=== PATIENT | female | born 1945 | race Caucasian/White ===

== ENCOUNTER → 2016-03-13 | Outpatient (CLI) | payer MEDICARE ==
[~2016-03-13] MED LIST: ACDPT PO; ACET-2469 PO; ACET325T49 PO; ASP81CT PO; ASPI-808 PO; ATOR10TA PO; BISA10SU12 PR; CAFERGOT; CALC-225 PO; CALC-694 PO; CALC-80 PO; CALCIUM; CEFD300C3 PO; CHLO25TA22 PO; DOCU100C37 PO; FISH OIL 1,2001 EAC1 PO; HYDR-3583 PO; HYDR-3820 PO; HYDR-753 PO; IMITREX; IRON150C3 PO; L.AC1CAP6 PO; LIPITOR; LISI-552 PO; LISI40TA PO; METO-272 PO; METO25TA PO; METOPROLOL ER PO; MULT-608 PO; OMEG-109 PO; OMEG-9 PO; OMEG1CAP24 PO; OMEG1CAP51 PO; OMG1KC; POTA10CA43 PO; POTA10TA10 PO; PROM25TA14 PO; SIMV20TA3 PO; SMTR50T; SOLI5TAB4 PO; TOLTA4; TRAM50TA2 PO; TROS20TA2 PO; TYLENOL PM
--- OUTSIDE RECORDS SUMMARY | 2016-03-13 09:29 | XMS REPORT | Continuity of Care Document ---
Author Author [facility] Organization [facility] Address Unknown Phone Unavailable Care Team Providers Care Head Of Sales Name Role Phone Pricila Harris PCP [phone] Source Comments Some departments are not documenting in the electronic medical record. If you do not see the information that you expected, contact Release of Information in the Health Information Management department at [phone] for further assistance in locating additional records.[facility] Active Allergies and Adverse Reactions No Known Allergies Current Medications Prescription Sig. Disp. Refills Start End Date Status Date metoprolol (LOPRESSOR) 50 Take 75 mg by mouth twice Active mg tablet daily. lisinopril (PRINIVIL, Take 40 mg by mouth Active ZESTRIL) 40 mg tablet daily. simvastatin (ZOCOR) 20 mg Take 20 mg by mouth at Active tablet bedtime daily. aspirin EC 81 mg tablet Take 81 mg by mouth Active daily. CALCIUM CARBONATE/VITAMIN Take by mouth. Active D3 (CALCIUM 600 + D PO) DOCOSAHEXANOIC ACID/EPA Take 2,400 mg by mouth Active (FISH OIL PO) twice daily. MULTIVITS,CA,MINERALS/IRO Take by mouth. Active N/FA (ONE-A-DAY WOMENS FORMULA PO) Diphenhydramine-Acetamino Take by mouth at bedtime Active phen (TYLENOL PM EXTRA daily. STRENGTH) 25-500 mg tab tablet Active Problems Problem Noted Date Hypertension Last Assessment & Plan: BP is well controlled. 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 Pulse 91 02/15/2015 9:12 AM MAILING MACHINE ASSISTANT Temperature 36.4 C (97.5 F) 02/15/2015 9:12 AM MAILING MACHINE ASSISTANT Respiratory Rate 20 02/15/2015 9:12 AM MAILING MACHINE ASSISTANT Height 1.575 m (5' 2") 02/15/2015 9:12 AM MAILING MACHINE ASSISTANT Weight 84.278 kg (185 lb 12.8 02/15/2015 9:12 AM MAILING MACHINE ASSISTANT oz) Body Mass Index 33.97 02/15/2015 9:12 AM MAILING MACHINE ASSISTANT Oxygen Saturation - - Plan of Care Health Maintenance Due Date Last Done Comments Hepatitis C Screening 1945 Physical (Comprehensive) 1952 Exam Prevnar/Pneumovax (#1) 2010 Tetanus Vaccine 01/08/2015 01/08/2005 (Previously completed) Influenza Vaccine 10/18/2015 11/28/2014 Breast Cancer Screening 10/10/2016 10/10/2014 (Previously completed) Colorectal Cancer 12/18/2024 12/18/2014 (Previously completed) Screening Pertussis Vaccine Addressed 01/08/2005 (Previously completed) Overridden with the intention of not completing the topic Osteoporosis Screening Completed 11/25/2012 Shingles Vaccine Addressed 11/28/2014 (Previously completed) Overridden with the intention of not completing the topic Results from Last 3 Months Not on file
--- NOTE | 2016-03-13 11:40 | Diagnostic Imaging Report ---
Left humerus. INDICATION: Pain. FINDINGS: Two views were obtained. There is no fracture, dislocation, or acute bony abnormality evident. The shoulder and elbow joints appear to be fairly well maintained given the patient's age. The soft tissues are unremarkable. IMPRESSION: There is no evidence for an acute bony abnormality. Dictated by: Dictated on workstation # [id number]
--- NOTE | 2016-03-13 11:44 | Diagnostic Imaging Report ---
Left shoulder. INDICATION: Shoulder pain. FINDINGS: Two views were obtained. There is no fracture, dislocation, or acute bony abnormality evident. There is moderate degenerative disease involving the glenohumeral joint and the acromioclavicular joint. The soft tissues are unremarkable for an acute abnormality. As noted on the chest exam of 03/31/2015, there are surgical clips in the left supraclavicular region. IMPRESSION: There is no evidence for an acute bony abnormality. Dictated by: Dictated on workstation # [id number]
== END ==
LOC: RAD 09:25
PROVIDERS: ATTEND Nurse Practitioner Family
DX: M25.512 Pain in left shoulder (principal); M79.622 Pain in left upper arm
CPT/HCPCS: 73030; 73060

== ENCOUNTER → 2016-03-21 | Outpatient (CLI) | payer MEDICARE ==
--- OUTSIDE RECORDS SUMMARY | 2016-03-21 11:46 | XMS REPORT | Continuity of Care Document ---
Author Author [facility] Organization [facility] Address Unknown Phone Unavailable Care Team Providers Care Vegetable Tier Name Role Phone Pricila Harris PCP [phone] Source Comments Some departments are not documenting in the electronic medical record. 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
--- NOTE | 2016-03-21 12:53 | Diagnostic Imaging Report ---
PROCEDURE: MRI left upper extremity without contrast. TECHNIQUE: Multiplanar, multisequence non contrast-enhanced MRI of the left upper extremity was accomplished. INDICATION: Arm pain. There are no previous MRI examinations available for comparison. The plain film examination of the left shoulder performed on 03/13/16 failed to show any sign of an acute abnormality. On the T2 fat-saturated coronal series of this exam, there is a small area of abnormal signal along the anteriormost insertion of the rotator cuff. This area measures 3.5 x 6.1 x 5.4 mm in maximum longitudinal transverse and AP dimensions. Most likely, this represents a small rim rent tear of the rotator cuff. The supraspinatus muscle in this area is slightly bunched but the supraspinatus muscle is not retracted. The acromioclavicular joint is mildly hypertrophied and this does result in slight narrowing of the outlet for the supraspinatus muscle. There is also a trace amount of fluid in the subacromial bursa indicating there is mild inflammation of the muscle in this area. The labrum is thinned centrally and most likely torn on a degenerative basis. The biceps tendon and the subscapularis tendon are intact. There is no abnormal signal arising from the osseous structures to suggest bone edema or a fracture. There is only a small amount of fluid within the glenohumeral joint. IMPRESSION: 1. There is a small rim-rent tear of the anteriormost insertion of the rotator cuff. The supraspinatus muscle in this area is slightly bunched but not retracted. 2. There is hypertrophy of the acromioclavicular joint and this does result in slight narrowing of the outlet for the supraspinatus muscle. 3. The labrum is thinned centrally and most likely torn on a degenerative basis. 4. There is no evidence for an acute bony abnormality. Dictated by: Dictated on workstation # [id number]
== END ==
LOC: RAD 11:43
PROVIDERS: ATTEND Family Medicine
DX: M25.512 Pain in left shoulder (principal)
CPT/HCPCS: 73221

== ENCOUNTER 2016-04-28 08:56 | Outpatient (RCR) | payer MEDICARE ==
--- OUTSIDE RECORDS SUMMARY | 2016-04-17 08:30 | XMS REPORT | Continuity of Care Document ---
Author Author [facility] Organization [facility] Address Unknown Phone Unavailable Care Team Providers Care Tube Pusher Name Role Phone Pricila Harris PCP [phone] Source Comments Some departments are not documenting in the electronic medical record. 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
== END 2016-04-28 10:39 | disposition home or self-care (01) ==
PROVIDERS: ATTEND Orthopaedic Surgery
DX: M75.102 Unspecified rotator cuff tear or rupture of left shoulder, not specified as traumatic (principal)

== ENCOUNTER → 2016-11-13 | Outpatient (CLI) | payer MEDICARE ==
[~2016-11-13] MED LIST changes: +FAMO40TA72 PO; +MAGN400C PO; -METO-272 PO; +METO-370 PO; +ONDA4TAB8 PO; +SULF1TAB35 PO
--- NOTE | 2016-11-13 17:40 | Diagnostic Imaging Report ---
EXAMINATION: Bilateral diagnostic mammogram. The current study was also evaluated with a Computer Aided Detection (CAD) system. INDICATION: Pain in the right axilla. COMPARISON: 10/23/2015. FINDINGS: The breasts are composed of scattered fibroglandular densities. No mass, architectural distortion or suspicious calcification is seen. Surgical clips in the right axilla are noted. IMPRESSION: No mammographic evidence of malignancy. Ultrasound evaluation of the area of pain is pending. ACR BI-RADS Category 0: Incomplete. (Needs additional imaging evaluation). Result letter will be mailed to the patient. Note: At least 10% of breast cancer is not imaged by mammography. Dictated by: Dictated on workstation # [id number]
--- NOTE | 2016-11-13 17:43 | Diagnostic Imaging Report ---
EXAMINATION: Ultrasound of the right axilla. INDICATION: Tenderness and lump felt in the right axilla. FINDINGS: The right axillary scan shows no underlying abnormality seen. IMPRESSION: Negative study. Clinical followup of the palpable area recommended. BI-RADS 1. Dictated by: Dictated on workstation # [id number]
== END ==
LOC: RAD 08:01
PROVIDERS: ATTEND Family Medicine
DX: N63 Unspecified lump in breast (principal)
CPT/HCPCS: 77066

== ENCOUNTER 2017-01-05 00:15 | Emergency (ER) | payer MEDICARE ==
[~2017-01-05] VITALS: Ht 160 cm; Wt 85.7 kg
[~2017-01-05 00:15] MED LIST changes: -FAMO40TA72 PO; -MAGN400C PO; -ONDA4TAB8 PO; -SULF1TAB35 PO
--- OUTSIDE RECORDS SUMMARY | 2017-01-05 00:20 | XMS REPORT | Clinical Summary ---
Author Author [facility] Organization [facility] Address Unknown Phone Unavailable Care Team Providers Care Administration Professional Name Role Phone PCP Unavailable Source Comments Some departments are not documenting in the electronic medical record. If you do not see the information that you expected, contact Release of Information in the Health Information Management department at [phone] for further assistance in locating additional records.[facility] Allergies No Known Allergies Current Medications Prescription Sig. [...] Flu Vaccine >64yo 11/28/2014 High-dose (Preservative Free) Family History Medical History Relation Name Comments Hypertension Brother Hypertension Father Hypertension Mother Hypertension Sister Cancer-Colon Cousin Relation Name Status Comments Brother Father Mother Sister Cousin Social History Tobacco Use Types Packs/Day Years Used Date Never Smoker Smokeless Tobacco: Never Used Tobacco Cessation: Counseling Given: No Alcohol Use Drinks/Week oz/Week Comments No 0 Standard 0.0 drinks or equivalent Sex Assigned at Date Recorded Not on file Last Filed Vital Signs Vital Sign Reading Time Taken Blood Pressure 138/84 02/15/2015 9:12 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 Pulse 91 02/15/2015 9:12 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 Temperature 36.4 C (97.5 F) 02/15/2015 9:12 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 Respiratory Rate 20 02/15/2015 9:12 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 Oxygen Saturation - - Inhaled Oxygen - - Concentration Weight 84.3 kg (185 lb 12.8 oz) 02/15/2015 9:12 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 Height 157.5 cm (5' 2") 02/15/2015 9:12 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 Body Mass Index 33.98 02/15/2015 9:12 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 Plan of Treatment Health Maintenance Due Date Last Done Comments HEPATITIS C SCREENING 1945 PHYSICAL (COMPREHENSIVE) 1952 EXAM PREVNAR/PNEUMOVAX (#1) 2010 TETANUS VACCINE 01/08/2015 01/08/2005 (Previously completed) BREAST CANCER SCREENING 10/11/2015 10/10/2014 (Previously completed) INFLUENZA VACCINE 09/16/2016 11/28/2014 COLORECTAL CANCER 12/18/2024 12/18/2014 (Previously completed) SCREENING PERTUSSIS VACCINE Addressed 01/08/2005 (Previously completed) Overridden with the intention of not completing the topic OSTEOPOROSIS SCREENING Completed 11/25/2012 SHINGLES VACCINE Addressed 11/28/2014 (Previously completed) Overridden with the intention of not completing the topic Results Not on filefrom Last 3 Months
[2017-01-05] MEDS ORDERED: LACTATED RINGERS 1,000 ML IV ONE ×2 (00:31→01:20)
[2017-01-05] MEDS ORDERED: FAMOTIDINE 20MG/2ML IV (PEPCID) IV STA (00:31)
--- NOTE | 2017-01-05 00:36 | ED GI ---
General Chief Complaint: Abdominal/GI Problems Stated Complaint: N/V/D Nursing Triage Note: c/o n/v/d Sepsis Screen: No Definite Risk Source of Information: Patient History of Present Illness Time Seen By Provider: 00:20 Initial Comments PT C/O NAUSEA/VOMITING/DIARRHEA X 2 HOURS VOMITED X 2 DIARRHEA LESS THAN 5 EPISODES NO ABDOMINAL PAIN NO FEVER, BUT HAS CHILLS SLIGHT LIGHTHEADEDNESS NO KNOWN SICK CONTACTS OR SUSPICIOUS FOODS. ATE AT [facility] AROUND 1600-- DARK MEAT, BAKED BEANS. HAD WHITE MEAT AND NO BAKED BEANS AND HE IS NOT ILL. PCP: DR. LUNA Allergies and Home Medications Allergies Coded Allergies: Anesthetics - Amide Type (Verified Adverse Reaction, Unknown, vomiting, ) Home Medications Aspirin 325 Mg Tablet, 325 MG PO BID, (Reported) Calcium Carbonate/Vitamin D3 1 Each Tablet, 1 TAB PO DAILY, (Reported) Chlorthalidone 25 Mg Tablet, 25 MG PO DAILY, (Reported) Famotidine 40 Mg Tablet, 40 MG PO DAILY, #10 Prescribed by: JIA GAMBINO on 01/05/17 0128 Hydrocodone/Acetaminophen 1 Each Tablet, 1 EA PO Q4H PRN for MODERATE PAIN, #90 Prescribed by: SHIREEN VAUGHAN on 12/06/15 0703 Lisinopril 40 Mg Tablet, 20 MG PO BID, (Reported) TAKES 1/2 (40MG) TABLET Metoprolol Succinate 50 Mg Tab.er.24h, 50 MG PO BID, (Reported) Multivitamins 1 Tab Tablet, 1 TAB PO DAILY, (Reported) [place]-3/Dha/Epa/Fish Oil 1 Each Capsule.dr, 2,800 MG PO HS, (Reported) TAKES 2 (1400MG) CAPSULES Ondansetron 4 Mg Tab.rapdis, 4 MG PO Q4H, #10 Prescribed by: JIA GAMBINO on 01/05/17 0128 Potassium Chloride 10 Meq Capsule.er, 10 MEQ PO MoWeFr, (Reported) Simvastatin 20 Mg Tablet, 20 MG PO HS, (Reported) Sulfamethoxazole/Trimethoprim 1 Each Tablet, 1 EACH PO BID, #20 Prescribed by: JIA GAMBINO on 01/05/17 0207 Review of Systems Constitutional: see HPI, chills Respiratory: No Symptoms Reported Cardiovascular: No Symptoms Reported Gastrointestinal: See HPI, Denies Abdominal Pain, Diarrhea, Nausea, Vomiting Genitourinary: No Symptoms Reported Musculoskeletal: no symptoms reported Skin: no symptoms reported Psychiatric/Neurological: No Symptoms Reported Endocrine: No Symptoms Reported Hematologic/Lymphatic: No Symptoms Reported Past Zzjbipj-Fdvcxv-Zjcixp Hx Patient Social History Alcohol Use: Denies Use Recreational Drug Use: No Smoking Status: Never a Smoker 2nd Hand Smoke Exposure: No Recent Foreign Travel: No Contact w/Someone Who Travel: No Recent Infectious Disease Expo: No Recent Hopitalizations: No Physical Abuse: No Sexual Abuse: No Immunizations Up To Date Tetanus Booster (TDap): More than 5yrs Date of Pneumonia Vaccine: Mar 31, 2015 Date of Influenza Vaccine: Nov 13, 2015 Seasonal Allergies Seasonal Allergies: No Surgeries History of Surgeries: Yes (RIGHT AXILLARY LYMPH NODE BIOPSY/REMOVAL; HYST/BSO; UTERINE/VESICLE PROLAPSE REPAIR; BILATERAL KNEE REPLACEMENTS; EGD/COLONOSCOPY) Surgeries: Gallbladder, Joint Replacement, Orthopedic, Thyroidectomy Respiratory History of Respiratory Disorde: Yes (USES CPAP; PNEUMONIA/SEVERE HYPOXIA/ RESPIRATORY FAILURE POST-OP KNEE REPLACEMENT SURGERY) Respiratory Disorders: Sleep Apnea Currently Using CPAP: Yes Cardiovascular History of Cardiac Disorders: Yes Cardiac Disorders: High Cholesterol, Hypertension, Irregular Heartbeat Neurological History of Neurological Disord: Yes Neurological Disorders: Headaches /Migraines Reproductive System Hx Reproductive Disorders: No Sexually Transmitted Disease: No HIV/AIDS: No Female Reproductive Disorders: 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 History: Menopausal Genitourinary History of Genitourinary Disor: No Gastrointestinal History of Gastrointestinal Di: Yes Gastrointestinal Disorders: Gastroesophageal Reflux Musculoskeletal History of Musculoskeletal Dis: Yes (BILATERAL KNEE REPLACEMENTS) Musculoskeletal Disorders: Arthritis Endocrine History of Endocrine Disorders: Yes (THYROIDECTOMY) HEENT History of HEENT Disorders: Yes HEENT Disorders: Cataract Cancer History of Cancer: No Psychosocial History of Psychiatric Problem: No Suicide Risk Score: 0 Integumentary History of Skin or Integumenta: No Blood Transfusions History of Blood Disorders: No Family Medical History Family Medial History: Abdominal aortic aneurysm 19 FATHER Alcoholism 19 MOTHER Arthritis 19 FATHER Cardiovascular disease 19 FATHER Dementia 19 FATHER Hypertension 19 FATHER 19 MOTHER G8 BROTHER G8 SISTER Thyroid disease G8 SISTER Physical Exam Vital Signs VS - Last 72 Hours, by Label 01/05/17 01/05/17 00:22 02:13 Temp 98.1 98.1 Pulse 104 104 Resp 18 18 B/P (MAP) 133/77 Pulse Ox 100 100 Capillary Refill : Less Than 3 Seconds General Appearance: WD/WN, no apparent distress HEENT: PERRL/EOMI, other (ORAL MUCOSA SLIGHTLY DRY) Neck: normal inspection Respiratory: normal breath sounds, no respiratory distress, no accessory muscle use Cardiovascular: no murmur, tachycardia (MILD--100-110) Gastrointestinal: normal bowel sounds, non tender, soft, no organomegaly, no pulsatile mass Extremities: normal inspection, no pedal edema, no calf tenderness, normal capillary refill Back: normal inspection, no CVA tenderness Neurologic/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: 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 as tested, no motor/sensory deficits, alert, normal mood/affect, oriented x 3 Skin: normal color, warm/dry, No rash Progress/Results/Core Measures Results/Orders Lab Results Laboratory Tests Test 01/05/17 00:30 01/05/17 01:40 Range/Units White Blood Count 10.8 4.3-11.0 10^3/uL Red Blood Count 4.33 L 4.35-5.85 10^6/uL Hemoglobin 12.9 11.5-16.0 G/DL Hematocrit 38 35-52 % Mean Corpuscular Volume 87 80-99 FL Mean Corpuscular Hemoglobin 30 25-34 PG Mean Corpuscular Hemoglobin Concent 34 32-36 G/DL Red Cell Distribution Width 13.0 10.0-14.5 % Platelet Count 214 130-400 10^3/uL Mean Platelet Volume 11.0 H 7.4-10.4 FL Neutrophils (%) (Auto) 91 H 42-75 % Lymphocytes (%) (Auto) 5 L 12-44 % Monocytes (%) (Auto) 4 0-12 % Eosinophils (%) (Auto) 1 0-10 % Basophils (%) (Auto) 0 0-10 % Neutrophils # (Auto) 9.8 H 1.8-7.8 X 10^3 Lymphocytes # (Auto) 0.6 L 1.0-4.0 X 10^3 Monocytes # (Auto) 0.4 0.0-1.0 X 10^3 Eosinophils # (Auto) 0.1 0.0-0.3 10^3/uL Basophils # (Auto) 0.0 0.0-0.1 10^3/uL Sodium Level 140 135-145 MMOL/L Potassium Level 3.8 3.6-5.0 MMOL/L Chloride Level 102 98-107 MMOL/L Carbon Dioxide Level 24 21-32 MMOL/L Anion Gap 14 5-14 MMOL/L Blood Urea Nitrogen 23 H 7-18 MG/DL Creatinine 1.15 0.60-1.30 MG/DL Estimat Glomerular Filtration Rate 47 BUN/Creatinine Ratio 20 Glucose Level 140 H 70-105 MG/DL Calcium Level 9.7 8.5-10.1 MG/DL Magnesium Level 1.8 1.8-2.4 MG/DL Total Bilirubin 0.6 0.1-1.0 MG/DL Aspartate Amino Transf (AST/SGOT) 19 5-34 U/L Alanine Aminotransferase (ALT/SGPT) 23 0-55 U/L Alkaline Phosphatase 51 40-136 U/L Total Protein 7.4 6.4-8.2 GM/DL Albumin 4.3 3.2-4.5 GM/DL Amylase Level 63 25-125 U/L Lipase 32 8-78 U/L Urine Color YELLOW Urine Clarity SLIGHTLY CLOUDY Urine pH 7 5-9 Urine Specific [place] 1.010 L 1.016-1.022 Urine Protein 1+ H NEGATIVE Urine Glucose (UA) NEGATIVE NEGATIVE Urine Ketones 1+ H NEGATIVE Urine Nitrite NEGATIVE NEGATIVE Urine Bilirubin NEGATIVE NEGATIVE Urine Urobilinogen NORMAL NORMAL MG/DL Urine Leukocyte Esterase 3+ H NEGATIVE Urine RBC (Auto) 1+ H NEGATIVE Urine RBC 2-5 H /HPF Urine WBC 10-25 H /HPF Urine Squamous Epithelial Cells 2-5 /HPF Urine Crystals NONE /LPF Urine Bacteria FEW H /HPF Urine Casts NONE /LPF Urine Mucus SMALL H /LPF Urine Culture Indicated YES My Orders Orders - JIA GAMBINO DO Saline Lock/Iv-Start (01/05/17 00:31) Amylase (01/05/17:) Cbc With Automated Diff (01/05/17:) Comprehensive Metabolic Panel (01/05/17:) Lipase (01/05/17:) Magnesium (01/05/17:) Ua Culture If Indicated (01/05/17:) Ondansetron Injection (Zofran Injectio (01/05/17 00:45) Famotidine Injection (Pepcid Injection) (01/05/17:31) Saline Lock/Iv-Start (11/20/17 00:31) Lactated Ringers (Lr 1000 Ml Iv Solution (01/05/17 00:31) Saline Lock/Iv-Start (01/05/17 01:20) Lactated Ringers (Lr 1000 Ml Iv Solution (01/05/17 01:20) Urine Culture (01/05/17 01:40) Rx-Ondansetron Po (Rx-Zofran Po) (01/05/17 01:58) Rx-Ondansetron Po (Rx-Zofran Po) (01/05/17 02:01) Medications Given in ED Current Medications Medications Dose Ordered Sig/Abdirizak Route Start Time Stop Time Status Last Admin Dose Admin Lactated Ringer's 1,000 ml @ 0 mls/hr Q0M ONCE IV 01/05/17 00:31 01/05/17 00:34 DC 01/05/17 00:40 0 MLS/HR Lactated Ringer's 1,000 ml @ 0 mls/hr Q0M ONCE IV 01/05/17 01:20 01/05/17 01:25 DC 01/05/17 01:25 0 MLS/HR Ondansetron HCl 8 mg ONCE ONCE IVP 01/05/17 00:45 01/05/17 00:46 DC 01/05/17 00:40 8 MG Vital Signs/I&O Vital Sign - Last 12Hours 01/05/17 01/05/17 00:22 02:13 Temp 98.1 98.1 Pulse 104 104 Resp 18 18 B/P (MAP) 133/77 Pulse Ox 100 100 Blood Pressure Mean: 95 Progress Note : Progress Note FEELS MUCH BETTER AFTER FLUIDS AND MEDICATIONS--STATES SHE "FEELS JUST FINE" NOW NO VOMITING OR DIARRHEA DURING ER STAY PT TOLERATING WATER AND ICE CHIPS PRIOR TO DISMISSAL Departure Impression Impression: Primary Impression: Gastroenteritis Additional Impression: Urinary tract infection Disposition: HOME, SELF-CARE Condition: Improved Departure-Patient Inst. Referrals: MADHAVI LUNA MD (PCP) Primary Care Physician Patient Instructions: Viral Gastroenteritis, Adult (DC), Urinary Tract Infection, Adult (DC) Add. Discharge Instructions: CLEAR LIQUIDS, SIPS AT A TIME--WATER, BROTH, JELLO, GATORADE ADD BRATS DIET TO CLEAR LIQUIDS--BANANAS, RICE, APPLESAUCE, TOAST, SALTINES FOLLOW UP WITH YOUR DR IN 1-2 DAYS IF NO BETTER RETURN TO ER IF WORSE All discharge instructions reviewed with patient and/or family. Voiced understanding. Scripts Sulfamethoxazole/Trimethoprim (Bactrim Ds Tablet) 1 Each Tablet 1 EACH PO BID, #20 TAB Prov: JIA GAMBINO DO 01/05/17 Famotidine (Pepcid) 40 Mg Tablet 40 MG PO DAILY, #10 TAB Prov: JIA GAMBINO DO 01/05/17 Ondansetron (Zofran Odt) 4 Mg Tab.rapdis 4 MG PO Q4H for Nausea/Vomiting, #10 TAB Prov: JIA GAMBINO DO 01/05/17 JIA GAMBINO DO Jan 05, 2017 00:36
[2017-01-05 00:37] LABS: BASOPHILS % (AUTO) 0 % (0-10); EOSINOPHILS # (AUTO) 0.1 10^3/uL (0.0-0.3); EOSINOPHILS % (AUTO) 1 % (0-10); LYMPHOCYTES # (AUTO) 0.6 X 10^3 (1.0-4.0); LYMPHOCYTES % (AUTO) 5 % (12-44); MEAN CORPUSCULAR HEMOGLOBIN 30 PG (25-34); MEAN CORPUSCULAR HGB CONC 34 G/DL (32-36); MEAN CORPUSCULAR VOLUME 87 FL (80-99); MONOCYTES # (AUTO) 0.4 X 10^3 (0.0-1.0); MONOCYTES % (AUTO) 4 % (0-12); NEUTROPHILS # (AUTO) 9.8 X 10^3 (1.8-7.8); NEUTROPHILS % (AUTO) 91 % (42-75); PLATELET COUNT 214 10^3/uL (130-400); RED BLOOD COUNT 4.33 10^6/uL (4.35-5.85); WHITE BLOOD COUNT 10.8 10^3/uL (4.3-11.0)
[2017-01-05] MEDS ORDERED: ONDANSETRON 4 MG/2 ML (SDV) Z0FRAN IVP ONE (00:45)
[2017-01-05 00:59] LABS: ALBUMIN 4.3 GM/DL (3.2-4.5); BILIRUBIN,TOTAL 0.6 MG/DL (0.1-1.0); CALCIUM 9.7 MG/DL (8.5-10.1); CREATININE SERUM 1.15 MG/DL (0.60-1.30); MAGNESIUM 1.8 MG/DL (1.8-2.4); POTASSIUM 3.8 MMOL/L (3.6-5.0); TOTAL PROTEIN 7.4 GM/DL (6.4-8.2)
[2017-01-05] MEDS ORDERED: FAMO40TA72 PO (01:28)
[2017-01-05] MEDS ORDERED: ONDA4TAB8 PO (01:28)
[2017-01-05 01:49] LABS: BILIRUBIN,URINE NEGATIVE (NEGATIVE); KETONES,URINE 1+ (NEGATIVE); LEUKOCYTE ESTERASE ,URINE 3+ (NEGATIVE); NITRITE,URINE NEGATIVE (NEGATIVE); PH,URINE 7 (5-9); PROTEIN,URINE 1+ (NEGATIVE); UROBILINOGEN,URINE NORMAL (NORMAL)
[2017-01-05] MEDS ORDERED: RX-ONDANSETRON 4 MG ODT (ZOFRAN) PPK #4 PO STA (01:58)
[2017-01-05] MEDS ORDERED: RX-ONDANSETRON 4 MG ODT (ZOFRAN) PPK #4 ONE (02:01)
[2017-01-05] MEDS ORDERED: SULF1TAB35 PO (02:07)
[2017-01-05 02:13] VITALS: BP 133/77
== END 2017-01-05 02:15 | disposition home or self-care (01) ==
LOC: EDUNIT# 00:15 → ER 00:17
DX: K52.9 Noninfective gastroenteritis and colitis, unspecified (principal); N39.0 Urinary tract infection, site not specified; G47.30 Sleep apnea, unspecified; E78.00 Pure hypercholesterolemia, unspecified; I10 Essential (primary) hypertension; K21.9 Gastro-esophageal reflux disease without esophagitis; M17.0 Bilateral primary osteoarthritis of knee; G43.909 Migraine, unspecified, not intractable, without status migrainosus; Z79.82 Long term (current) use of aspirin; Z96.653 Presence of artificial knee joint, bilateral; Z90.89 Acquired absence of other organs; Z82.49 Family history of ischemic heart disease and other diseases of the circulatory system
CPT/HCPCS: 36415; 80053; 81000; 82150; 83690; 83735; 85025; 87088; 87186; 96361; 96374; 96375

== ENCOUNTER 2017-01-07 19:48 | Emergency (ER) | payer MEDICARE ==
[~2017-01-07] VITALS: Ht 160 cm; Wt 86.2 kg
[~2017-01-07 19:48] MED LIST changes: +FAMO40TA72 PO; +ONDA4TAB8 PO; +SULF1TAB35 PO
[2017-01-07] MEDS ORDERED: NS IV 1000 ML 1,000 ML IV ONE (20:21)
--- NOTE | 2017-01-07 20:25 | ED GU-Female ---
General Chief Complaint: General Problems/Pain Stated Complaint: CHILLS;NAUSEA Nursing Triage Note: PT STATES SHE WAS SEEN HERE IN THE ED ON THURSDAY WITH NAUSEA-WAS DX WITH GASTROENTERITIS AND UTI. STATES THAT SYMPTOMS HAVE WORSENED AND SHE KEEP HAVING THE CHILLS AND IS PASSING A LARGE AMOUNT OF GAS. Nursing Sepsis Screen: No Definite Risk Source: patient, RN/ (Anjana), old records, spouse Exam Limitations: no limitations History of Present Illness Time seen by provider: 20:14 Initial Comments Patient presents to ER by private conveyance with her spouse and a chief complaint that 2 days ago she was having nausea vomiting diarrhea and no urinary symptoms but she was sent by her primary care physician after hours to the ER to be evaluated and they found her to have a UTI and gastroenteritis. She was given ondansetron and Bactrim. Her diarrhea has improved since that time she was feeling better yesterday still without any dysuria or discharge and only an occasional bout of nausea for which ondansetron worked well. However she experienced a headache and associated this with the ondansetron so she stopped using it today. When her came home from work he saw her covered up under blankets shivering complaining of nausea. She did not want to use the ondansetron so he called her physician Dr. Yeung and was recommended she be seen in the ER for evaluation. The said that her temperature at the time was 98.6 in the oral cavity. She still without diarrhea and presently without nausea. She's having no pain, cough, shortness of breath, chest pain, abdominal pain. She is a history of multiple surgeries in her abdomen to include tubal ligation, gallbladder, hysterectomy, oophorectomy etc. The patient states she's been taking the antibiotics as prescribed. Review the note from 01/05/17 reveals a same history with normal looking laboratory no leukocytosis or electrolyte imbalance and leukocytes seen on UA. Urine culture shows Escherichia coli that is pansensitive. Allergies and Home Medications Allergies Coded Allergies: Anesthetics - Amide Type (Verified Adverse Reaction, Unknown, vomiting, ) Home Medications Aspirin 325 Mg Tablet, 325 MG PO BID, (Reported) Calcium Carbonate/Vitamin D3 1 Each Tablet, 1 TAB PO DAILY, (Reported) Chlorthalidone 25 Mg Tablet, 25 MG PO DAILY, (Reported) Famotidine 40 Mg Tablet, 40 MG PO DAILY, #10 Prescribed by: JIA GAMBINO on 01/05/17 012 Hydrocodone/Acetaminophen 1 Each Tablet, 1 EA PO Q4H PRN for MODERATE PAIN, #90 Prescribed by: SHIREEN VAUGHAN on 12/06/15 0703 Lisinopril 40 Mg Tablet, 20 MG PO BID, (Reported) TAKES 1/2 (40MG) TABLET Magnesium Oxide 400 Mg Capsule, 400 MG PO BID for 2 Days, #4 Ref 0 Prescribed by: CHAU GIMENEZ on 01/07/172103 Metoprolol Succinate 50 Mg Tab.er.24h, 50 MG PO BID, (Reported) Multivitamins 1 Tab Tablet, 1 TAB PO DAILY, (Reported) [place]-3/Dha/Epa/Fish Oil 1 Each Capsule.dr, 2,800 MG PO HS, (Reported) TAKES 2 (1400MG) CAPSULES Ondansetron 4 Mg Tab.rapdis, 4 MG PO Q4H, #10 Prescribed by: JIA GAMBINO on 01/05/17127 Potassium Chloride 10 Meq Capsule.er, 10 MEQ PO MoWeFr, (Reported) Potassium Chloride 10 Meq Tablet.er, 10 MEQ PO BID for 2 Days, #4 Ref 0 Prescribed by: CHAU GIMENEZ on 01/07/172103 Promethazine HCl 25 Mg Tablet, 25 MG PO Q6H PRN for NAUSEA/VOMITING, #8 Ref 0 Prescribed by: CHAU GIMENEZ on 01/07/172104 Simvastatin 20 Mg Tablet, 20 MG PO HS, (Reported) Sulfamethoxazole/Trimethoprim 1 Each Tablet, 1 EACH PO BID, #20 Prescribed by: JIA GAMBINO on 01/05/17 0207 Constitutional: chills, diaphoresis, No fever, malaise EENTM: No hearing loss, No ear pain Respiratory: No cough, No short of breath Cardiovascular: No chest pain, No palpitations Gastrointestinal: No abdominal pain, No constipation, No diarrhea, loss of appetite, nausea, No vomiting Genitourinary: denies burning, denies discharge, denies dysuria, denies flank pain, denies hematuria, denies urgency Musculoskeletal: No back pain, No joint pain Skin: No pruritus, No rash Psychiatric/Neurological: Denies Headache, Denies Numbness, Denies Paresthesia Past Iggmkdh-Irkiwa-Vfnbnd Hx Patient Social History Alcohol Use: Denies Use Recreational Drug Use: No Smoking Status: Never a Smoker 2nd Hand Smoke Exposure: No Recent Foreign Travel: No Contact w/Someone Who Travel: No Recent Infectious Disease Expo: No Recent Hopitalizations: No Immunizations Up To Date Tetanus Booster (TDap): More than 5yrs Date of Pneumonia Vaccine: Mar 31, 2015 Date of Influenza Vaccine: Nov 13, 2015 Seasonal Allergies Seasonal Allergies: No Surgeries History of Surgeries: Yes Surgeries: Gallbladder, Joint Replacement, Orthopedic, Thyroidectomy Respiratory History of Respiratory Disorde: Yes Respiratory Disorders: Sleep Apnea Currently Using CPAP: Yes Cardiovascular History of Cardiac Disorders: Yes Cardiac Disorders: High Cholesterol, Hypertension, Irregular Heartbeat Neurological History of Neurological Disord: Yes Neurological Disorders: Headaches /Migraines Reproductive System Hx Reproductive Disorders: No Sexually Transmitted Disease: No HIV/AIDS: No Female Reproductive Disorders: Denies NIB ADJUSTER History: Menopausal Genitourinary History of Genitourinary Disor: No Gastrointestinal History of Gastrointestinal Di: Yes Gastrointestinal Disorders: Gastroesophageal Reflux Musculoskeletal History of Musculoskeletal Dis: Yes (BILATERAL KNEE REPLACEMENTS) Musculoskeletal Disorders: Arthritis Endocrine History of Endocrine Disorders: Yes (THYROIDECTOMY) HEENT History of HEENT Disorders: Yes HEENT Disorders: Cataract Cancer History of Cancer: No Psychosocial History of Psychiatric Problem: No Integumentary History of Skin or Integumenta: No Blood Transfusions History of Blood Disorders: No Family Medical History Family Medial History: Abdominal aortic aneurysm 19 FATHER Alcoholism 19 MOTHER Arthritis 19 FATHER Cardiovascular disease 19 FATHER Dementia 19 FATHER Hypertension 19 FATHER 19 MOTHER G8 BROTHER G8 SISTER Thyroid disease G8 SISTER Physical Exam Vital Signs Vital Sign - Last 12Hours 01/07/17 20:05 Temp 99.0 Pulse 85 Resp 16 B/P (MAP) 122/58 Capillary Refill : Less Than 3 Seconds General Appearance: WD/WN, mild distress HEENT: PERRL/EOMI, normal ENT inspection, TMs normal, pharynx normal Neck: non-tender, supple, normal inspection Cardiovascular: normal peripheral pulses, regular rate, rhythm, no edema Respiratory: chest non-tender, lungs clear, normal breath sounds, no respiratory distress Gastrointestinal: normal bowel sounds, non tender, soft, no organomegaly, No distended, No guarding, No rebound, No tenderness Extremities: normal inspection, no pedal edema, normal capillary refill Neurologic/Psychiatric: alert, oriented x 3 Skin: normal color, warm/dry Progress/Results/Core Measures Suspected Sepsis Recent Fever Within 48 Hours: No Infection Criteria Present: Documented Infection New/Unexplained Altered Menta: No Sepsis Screen: No Definite Risk Sepsis Diagnosis: SIRS Temperature:99.0 Pulse: 85 Respiratory Rate: 16 Laboratory Tests 01/07/17 20:27: White Blood Count 7.7 Blood Pressure 122 /58 Mean: 79 Laboratory Tests 01/07/17 20:27: Creatinine 1.30, Platelet Count 188, Total Bilirubin 0.5 Results/Orders Lab Results Laboratory Tests Test 01/07/17 20:27 01/07/17 20:46 Range/Units White Blood Count 7.7 4.3-11.0 10^3/uL Red Blood Count 3.98 L 4.35-5.85 10^6/uL Hemoglobin 11.9 11.5-16.0 G/DL Hematocrit 35 35-52 % Mean Corpuscular Volume 88 80-99 FL Mean Corpuscular Hemoglobin 30 25-34 PG Mean Corpuscular Hemoglobin Concent 34 32-36 G/DL Red Cell Distribution Width 13.1 10.0-14.5 % Platelet Count 188 130-400 10^3/uL Mean Platelet Volume 10.6 H 7.4-10.4 FL Neutrophils (%) (Auto) 94 H 42-75 % Lymphocytes (%) (Auto) 5 L 12-44 % Monocytes (%) (Auto) 0 0-12 % Eosinophils (%) (Auto) 1 0-10 % Basophils (%) (Auto) 0 0-10 % Neutrophils # (Auto) 7.2 1.8-7.8 X 10^3 Lymphocytes # (Auto) 0.4 L 1.0-4.0 X 10^3 Monocytes # (Auto) 0.0 0.0-1.0 X 10^3 Eosinophils # (Auto) 0.1 0.0-0.3 10^3/uL Basophils # (Auto) 0.0 0.0-0.1 10^3/uL Neutrophils % (Manual) 94 % Lymphocytes % (Manual) 2 % Monocytes % (Manual) 0 % Eosinophils % (Manual) 1 % Basophils % (Manual) 0 % Band Neutrophils 3 % Blood Morphology Comment NORMAL Sodium Level 139 135-145 MMOL/L Potassium Level 3.5 L 3.6-5.0 MMOL/L Chloride Level 105 98-107 MMOL/L Carbon Dioxide Level 22 21-32 MMOL/L Anion Gap 12 5-14 MMOL/L Blood Urea Nitrogen 14 7-18 MG/DL Creatinine 1.30 0.60-1.30 MG/DL Estimat Glomerular Filtration Rate 40 BUN/Creatinine Ratio 11 Glucose Level 110 H 70-105 MG/DL Calcium Level 8.9 8.5-10.1 MG/DL Magnesium Level 1.5 L 1.8-2.4 MG/DL Total Bilirubin 0.5 0.1-1.0 MG/DL Aspartate Amino Transf (AST/SGOT) 37 H 5-34 U/L Alanine Aminotransferase (ALT/SGPT) 41 0-55 U/L Alkaline Phosphatase 48 40-136 U/L Total Protein 6.7 6.4-8.2 GM/DL Albumin 4.1 3.2-4.5 GM/DL Urine Color YELLOW Urine Clarity CLEAR Urine pH 6 5-9 Urine Specific [place] 1.020 1.016-1.022 Urine Protein 1+ H NEGATIVE Urine Glucose (UA) NEGATIVE NEGATIVE Urine Ketones NEGATIVE NEGATIVE Urine Nitrite NEGATIVE NEGATIVE Urine Bilirubin 1+ H NEGATIVE Urine Urobilinogen NORMAL NORMAL MG/DL Urine Leukocyte Esterase 3+ H NEGATIVE Urine RBC (Auto) NEGATIVE NEGATIVE Urine RBC NONE /HPF Urine WBC 10-25 H /HPF Urine Squamous Epithelial Cells 10-25 H /HPF Urine Crystals NONE /LPF Urine Bacteria TRACE /HPF Urine Casts NONE /LPF Urine Mucus SMALL H /LPF Urine Culture Indicated YES My Orders Orders - CHAU GIMENEZ Cbc With Automated Diff (01/07/17 20:21) Comprehensive Metabolic Panel (01/07/17 20:21) Magnesium (01/07/17 20:21) Ua Culture If Indicated (01/07/17 20:21) Saline Lock/Iv-Start (01/07/17 20:21) Ns Iv 1000 Ml (Sodium Chloride 0.9%) (01/07/17 20:21) Manual Differential (01/07/17 20:27) Magnesium Oxide Tablet (Mag Ox Tablet) (01/07/17 21:15) Potassium Chloride (Tablet) (K Dur Table (01/07/17 21:15) Urine Culture (01/07/17 20:46) Medications Given in ED Current Medications Medications Dose Ordered Sig/Abdirizak Route Start Time Stop Time Status Last Admin Dose Admin Sodium Chloride 1,000 ml @ 0 mls/hr Q0M ONCE IV 11/22/17 20:21 01/07/17 20:22 DC 01/07/17 20:44 999 MLS/HR Vital Signs/I&O Vital Sign - Last 12Hours 01/07/17 20:05 Temp 99.0 Pulse 85 Resp 16 B/P (MAP) 122/58 Capillary Refill : Less Than 3 Seconds Blood Pressure Mean: 79 Progress Note #1: Time: :58 Progress Note Afebrile and without sepsis by definition. We will obtain some basic labs to make sure her electrolytes are okay and nothing else is change however her exhalation of urinary tract infection with viral gastroenteritis is very plausible. Her urine culture does reveal a pansensitive Escherichia coli for which the Bactrim would be reasonable. Would encourage her to try and at least 2 more days worth of antibiotics in. We'll give her a little bit of saline by IV see if this helps her feel better. Nothing is pointing towards worsening pathology per history, exam or laboratory. We will address the hypomagnesemia and hypokalemia are likely secondary to gastrointestinal losses and have her take some supplements at home. Progress Note #2: Time: 21:21 Progress Note There is still some white cells in the urine however there is a lot of squames indicating possible contamination by leukorrhea. She is sensitive to Bactrim however with her diarrhea it's dubious how much is actually absorbing so I encouraged her to continue her antibiotic regimen. Her diarrhea has improved today so hopefully she'll start absorbing a little more antibiotic. Departure Impression Impression: Primary Impression: Urinary tract infection Qualified Codes: N30.00 - Acute cystitis without hematuria Additional Impressions: Gastroenteritis and colitis, viral Hypokalemia Hypomagnesemia Disposition: 01 HOME, SELF-CARE Condition: Stable Departure-Patient Inst. Decision time for Depature: 21:22 Referrals: MADHAVI YEUNG MD (PCP) Primary Care Physician Patient Instructions: Urinary Tract Infection, Adult (DC), Viral Gastroenteritis, Adult (DC) Add. Discharge Instructions: You need to drink plenty of fluids. Caffeine is okay. Take your antibiotics for at least another 2 days if you can tolerate them. I will send Phenergan home to use instead of the ondansetron if you prefer but Phenergan may cause drowsiness. Please take a multivitamin or potassium and magnesium supplement twice a day with food for the next 3 days until your back to eating normally. He may also eat foods that are rich in potassium and magnesium such as bananas, broccoli, spinach, Kale etc. Please follow-up to primary care physician if you' re not feeling better in the next 3-4 days. All discharge instructions reviewed with patient and/or family. Voiced understanding. Scripts Promethazine HCl (Promethazine Tablet) 25 Mg Tablet 25 MG PO Q6H Y for NAUSEA/VOMITING, #8 TAB 0 Refills Prov: CHAU GIMENEZ 01/07/17 Magnesium Oxide (Magnesium) 400 Mg Capsule 400 MG PO BID for 2 Days, #4 CAP 0 Refills Prov: CHAU GIMENEZ 01/07/17 Potassium Chloride (Potassium Chloride) 10 Meq Tablet.er 10 MEQ PO BID for 2 Days, #4 TAB 0 Refills Prov: CHAU GIMENEZ 01/07/17 Copy Copies To 1: MADHAVI YEUNG MD, TITUS J Jan 07, 2017 20:25
[2017-01-07 20:35] LABS: BASOPHILS % (AUTO) 0 % (0-10); EOSINOPHILS # (AUTO) 0.1 10^3/uL (0.0-0.3); EOSINOPHILS % (AUTO) 1 % (0-10); LYMPHOCYTES # (AUTO) 0.4 X 10^3 (1.0-4.0); LYMPHOCYTES % (AUTO) 5 % (12-44); MEAN CORPUSCULAR HEMOGLOBIN 30 PG (25-34); MEAN CORPUSCULAR HGB CONC 34 G/DL (32-36); MEAN CORPUSCULAR VOLUME 88 FL (80-99); MEAN PLATELET VOLUME 10.6 FL (7.4-10.4); MONOCYTES % (AUTO) 0 % (0-12); NEUTROPHILS # (AUTO) 7.2 X 10^3 (1.8-7.8); NEUTROPHILS % (AUTO) 94 % (42-75); PLATELET COUNT 188 10^3/uL (130-400); RED BLOOD COUNT 3.98 10^6/uL (4.35-5.85); RED CELL DISTRIBUTION WIDTH 13.1 % (10.0-14.5); WHITE BLOOD COUNT 7.7 10^3/uL (4.3-11.0)
[2017-01-07 20:47] LABS: BAND NEUTROPHILS 3 %; BASOPHILS % (MANUAL) 0 %; EOSINOPHILS % (MANUAL) 1 %; LYMPHOCYTES % (MANUAL) 2 %; NEUTROPHILS % (MANUAL) 94 %
[2017-01-07 20:55] LABS: ALBUMIN 4.1 GM/DL (3.2-4.5); BILIRUBIN,TOTAL 0.5 MG/DL (0.1-1.0); CALCIUM 8.9 MG/DL (8.5-10.1); CREATININE SERUM 1.3 MG/DL (0.60-1.30); MAGNESIUM 1.5 MG/DL (1.8-2.4); POTASSIUM 3.5 MMOL/L (3.6-5.0); TOTAL PROTEIN 6.7 GM/DL (6.4-8.2)
[2017-01-07 20:57] LABS: KETONES,URINE NEGATIVE (NEGATIVE); LEUKOCYTE ESTERASE ,URINE 3+ (NEGATIVE); NITRITE,URINE NEGATIVE (NEGATIVE); PH,URINE 6 (5-9); PROTEIN,URINE 1+ (NEGATIVE); UROBILINOGEN,URINE NORMAL (NORMAL)
[2017-01-07] MEDS ORDERED: MAGN400C PO (21:04)
[2017-01-07] MEDS ORDERED: POTA10TA10 PO (21:04)
[2017-01-07] MEDS ORDERED: PROM25TA14 PO (21:05)
[2017-01-07 21:15] LABS: BILIRUBIN,URINE 1+ (NEGATIVE)
[2017-01-07] MEDS ORDERED: KCL 20 MEQ TAB (K-DUR) PO ONE (21:15)
[2017-01-07] MEDS ORDERED: MAGNESIUM OXIDE (MAG-OX)400 MG TAB PO ONE (21:15)
[2017-01-07 21:44] VITALS: BP 122/58
== END 2017-01-07 21:44 | disposition home or self-care (01) ==
LOC: EDUNIT# 19:48 → ER 19:49
DX: N39.0 Urinary tract infection, site not specified (principal); A08.4 Viral intestinal infection, unspecified; E87.6 Hypokalemia; E83.42 Hypomagnesemia; G47.30 Sleep apnea, unspecified; E78.00 Pure hypercholesterolemia, unspecified; I10 Essential (primary) hypertension; G43.909 Migraine, unspecified, not intractable, without status migrainosus; K21.9 Gastro-esophageal reflux disease without esophagitis; M17.0 Bilateral primary osteoarthritis of knee; Z82.49 Family history of ischemic heart disease and other diseases of the circulatory system; Z96.653 Presence of artificial knee joint, bilateral; Z98.51 Tubal ligation status; Z90.710 Acquired absence of both cervix and uterus; Z79.82 Long term (current) use of aspirin
CPT/HCPCS: 36415; 80053; 81000; 83735; 85007; 85027; 87088; 99283

== ENCOUNTER 2017-01-14 14:11 | Outpatient (RCR) | payer MEDICARE ==
[~2017-01-14 14:11] MED LIST changes: +MAGN400C PO
== END 2017-02-27 15:32 | disposition home or self-care (01) ==
PROVIDERS: ATTEND Nurse Practitioner Family
DX: M25.512 Pain in left shoulder (principal); Z98.890 Other specified postprocedural states

== ENCOUNTER → 2017-01-21 | Outpatient (CLI) | payer MEDICARE ==
[~2017-01-21] MED LIST changes: +CATHETER FLUSH 10 ML SYR IV PRN
[2017-01-21 13:02] VITALS: BP 152/117
--- NOTE | 2017-01-21 22:32 | STRESS TEST ---
DATE OF SERVICE: 01/21/2017 EXERCISE MYOVIEW STRESS TEST REPORT REFERRING PHYSICIAN: Dr. Yeung. Baseline heart rate is 69, baseline blood pressure 135/72. Baseline EKG is sinus rhythm with no ischemic changes. SUMMARY: The patient was injected with 10.75 mCi of technetium-99 Myoview and the resting images were obtained. Then, the patient started exercising with a baseline heart rate, blood pressure and EKG mentioned above. At minute 3 and 30 seconds, test was terminated due to fatigue. EKG was showing nondiagnostic changes. Blood pressure was 174/91. During recovery, heart rate and blood pressure returned to baseline. EKG returned to baseline. The resting and stress images were reviewed and compared in the short axis, horizontal long axis and vertical long axis views. Review of the images showed typical female pattern with good radiotracer uptake, no significant ischemia or infarction was noted. SSS is 2. SDS 2. TID value 1.15. On the gated images, the left ventricle appeared to be normal size with normal contractility, calculated ejection fraction 81%. CONCLUSION: 1. Fair exercise tolerance. A total of 3 minutes 30 seconds on standard Trever protocol, achieving maximum heart rate of 160, which is over 100% of maximum expected heart rate. 2. Nondiagnostic EKG changes with exercise returned to baseline during recovery. 3. Typical female pattern with no ischemia or infarction on SPECT images. 4. Normal left ventricular size with normal contractility, calculated ejection fraction 81%. Job ID: [id number] DocumentID: [id number] Dictated Date: 01/21/2017 16:10:32 Client Services Specialist Date: 01/21/2017 19:16:20 Dictated By: ANAI KNOTT MD
== END ==
LOC: CARD 11:17
PROVIDERS: ATTEND Physician Assistant
DX: R07.89 Other chest pain (principal); I10 Essential (primary) hypertension; R00.2 Palpitations; Z82.49 Family history of ischemic heart disease and other diseases of the circulatory system
CPT/HCPCS: 78452; 93017

== ENCOUNTER → 2017-10-27 | Outpatient (CLI) | payer MEDICARE ==
[~2017-10-27] MED LIST changes: -CATHETER FLUSH 10 ML SYR IV PRN; +HYDR-4196 PO; -HYDR-753 PO
--- NOTE | 2017-10-27 19:58 | Diagnostic Imaging Report ---
INDICATION: Routine screening. Comparison is made with prior mammograms from 11/13/2016 and 10/23/2015. 2-D and 3-D bilateral screening mammography was performed. The current study was also evaluated with a Computer Aided Detection (CAD) system. FINDINGS: Both breasts remain heterogeneously dense, limiting the sensitivity of mammography. The parenchymal pattern is stable. There are benign calcifications bilaterally. There are surgical clips in the right axilla and medial left breast. No mass or malignant-appearing microcalcifications are seen. IMPRESSION: No mammographic features suspicious for malignancy are identified. ACR BI-RADS Category 2: Benign findings. Result letter will be mailed to the patient. Note: At least 10% of breast cancer is not imaged by mammography. Dictated by: Dictated on workstation # [id number]
== END ==
LOC: RAD 08:29
PROVIDERS: ATTEND Nurse Practitioner Family
DX: Z12.31 Encounter for screening mammogram for malignant neoplasm of breast (principal)
CPT/HCPCS: 77067

== ENCOUNTER → 2019-01-12 | Outpatient (CLI) | payer MEDICARE | LOC: CARD 10:57 | PROVIDERS: ATTEND Physician Assistant | DX: I10 Essential (primary) hypertension (principal); E78.5 Hyperlipidemia, unspecified; R00.2 Palpitations; G47.33 Obstructive sleep apnea (adult) (pediatric); Z82.49 Family history of ischemic heart disease and other diseases of the circulatory system; I34.0 Nonrheumatic mitral (valve) insufficiency | CPT/HCPCS: 93306 ==

== ENCOUNTER 2019-04-20 05:38 | Outpatient (CLI) | payer MEDICARE ==
[~2019-04-20] VITALS: Ht 160 cm; Wt 86.4 kg
[~2019-04-20 05:38] MED LIST changes: -ACET-2469 PO; +ACET-2715 PO; +ACHYD1T PO; -HYDR-3820 PO; -METO-370 PO; +METO50TA7 PO; +SIMV20TA26 PO; -SIMV20TA3 PO; -TRAM50TA2 PO; +TRM50T PO
[2019-04-20] MEDS ORDERED: CETI10TA17 PO (10:32)
== END 2019-04-20 10:33 | disposition home or self-care (01) ==
LOC: PREOP 05:38
PROVIDERS: ATTEND Specialist
DX: Z01.818 Encounter for other preprocedural examination (principal)

== ENCOUNTER 2019-04-22 05:59 | Day surgery (SDC) | payer MEDICARE ==
[~2019-04-22] VITALS: Ht 160 cm; Wt 86.4 kg
[~2019-04-22 05:59] MED LIST changes: +CETI10TA17 PO
[2019-04-22] MEDS ORDERED: POVIDONE (BETADINE) OPHTH SOLN 5% 30 ML OP ONE (06:15)
[2019-04-22] MEDS ORDERED: TIMOLOL MALEATE 0.5% 5 ML (TIMOPTIC) BTL OU PRN (06:15)
[2019-04-22] MEDS ORDERED: LIDOCAINE PF 1% 2 ML VIAL IR PRN (06:15)
[2019-04-22] MEDS ORDERED: MOXIFLOXACIN OPHTH SOLN 5 MG/ML 0.3 ML SYRINGE OP ONE (06:15)
[2019-04-22 06:16] VITALS: BP 130/73
[2019-04-22] MEDS: TETRACAINE 0.5% OPHTH SOLN 4 ML BTL (SINGLE DOSE ONLY) OU PRN ×4 (06:18→06:48)
[2019-04-22] MEDS: PHENYLEPHRINE 10% OPHTH (NEO-SYN) 5 ML BTL OU SCH ×3 (06:34→06:48)
[2019-04-22] MEDS: CYCLOPENTOLATE 1% (CYCLOGYL) 2 ML DROPS OP SCH ×3 (06:34→06:48)
--- NOTE | 2019-04-22 06:45 | Ophthalmologist Pre-Op Note ---
Pre-Operative Progress Note H&P Reviewed The H&P was reviewed, patient examined and no changes noted. Date H&P Reviewed: Apr 22, 2019 Time H&P Reviewed: 06:45 Pre-Op Dx Cataract, Right Eye SONNY JONES MD Apr 22, 2019 06:45
[2019-04-22] MEDS ORDERED: MIDAZOLAM 2 MG/2 ML (VERSED) VIAL ONE (07:02)
--- NOTE | 2019-04-22 07:28 | Ophthalmology Operative Report ---
Cataract removal/placement IOL PREOPERATIVE DIAGNOSIS: Cataract Right Eye POSTOPERATIVE DIAGNOSIS: Cataract Right Eye PROCEDURE: Cataract removal and placement of posterior chamber implant, right eye SURGEON: Sai Jones ANESTHESIA: Topical with sedation COMPLICATIONS: None ESTIMATED BLOOD LOSS: Minimal DESCRIPTION OF PROCEDURE: After proper informed consent was obtained, the patient, a 73 female, was taken to the Operating Room and the right eye was anesthetized with tetracaine. The right eye was then prepped and draped in the usual manner. A wire lid speculum was placed. A paracentesis was made at the left hand position. Preservative free lidocaine was injected into the anterior chamber followed by viscoelastic. A clear corneal incision was made in the temporal position. A capsulorrhexis was preformed and the central nuclear and cortical material were removed. The posterior capsule was polished and Jakob 18.0 AU00T0 IOL was placed into the capsular bag. The residual viscoelastic was aspirated and balanced saline solution was injected into the anterior chamber. Moxifloxacin was injected into the anterior chamber. The wound was checked and found to be water tight. The patient tolerated the procedure well without complications. SAI JONES MD Apr 22, 2019 07:28
[2019-04-22] MEDS ORDERED: acetaZOLAMIDE ER 500 MG CAP (DIAMOX SEQUELS) PO ONE (07:30)
[2019-04-22 07:34] VITALS: BP 115/67
== END 2019-04-22 07:33 | disposition home or self-care (01) ==
LOC: SDC 05:59
PROVIDERS: ATTEND Specialist
DX: H25.11 Age-related nuclear cataract, right eye (principal); I10 Essential (primary) hypertension; E78.5 Hyperlipidemia, unspecified; Z79.899 Other long term (current) drug therapy

== ENCOUNTER 2019-07-04 09:41 | Outpatient (RCR) | payer MEDICARE ==
[~2019-07-04] VITALS: Ht 160 cm; Wt 86.4 kg
[~2019-07-04 09:41] MED LIST changes: +MULT-1136 PO
== END 2019-07-04 15:08 | disposition home or self-care (01) ==
LOC: PREOP 09:41
PROVIDERS: ATTEND Specialist
DX: Z01.818 Encounter for other preprocedural examination (principal); Z01.812 Encounter for preprocedural laboratory examination
CPT/HCPCS: 87635

== ENCOUNTER 2019-07-08 06:07 | Day surgery (SDC) | payer MEDICARE ==
[~2019-07-08] VITALS: Ht 160 cm; Wt 86.4 kg
[2019-07-08] MEDS ORDERED: MOXIFLOXACIN OPHTH SOLN 5 MG/ML 0.3 ML SYRINGE OP ONE (06:15)
[2019-07-08] MEDS ORDERED: POVIDONE (BETADINE) OPHTH SOLN 5% 30 ML OP ONE (06:15)
[2019-07-08] MEDS ORDERED: LIDOCAINE PF 1% 2 ML VIAL IR PRN (06:15)
[2019-07-08] MEDS ORDERED: TIMOLOL MALEATE 0.5% 5 ML (TIMOPTIC) BTL OU PRN (06:15)
[2019-07-08 06:21] VITALS: BP 126/67
[2019-07-08] MEDS: TETRACAINE 0.5% OPHTH SOLN 4 ML BTL (SINGLE DOSE ONLY) OU PRN ×4 (06:23→06:45)
[2019-07-08] MEDS: PHENYLEPHRINE 10% OPHTH (NEO-SYN) 5 ML BTL OU SCH ×3 (06:33→06:45)
[2019-07-08] MEDS: CYCLOPENTOLATE 1% (CYCLOGYL) 2 ML DROPS OP SCH ×3 (06:33→06:45)
[2019-07-08] MEDS ORDERED: MIDAZOLAM 2 MG/2 ML (VERSED) VIAL ONE (07:21)
[2019-07-08] MEDS ORDERED: acetaZOLAMIDE ER 500 MG CAP (DIAMOX SEQUELS) PO ONE (07:30)
--- NOTE | 2019-07-08 07:48 | Ophthalmology Operative Report ---
Cataract removal/placement IOL PREOPERATIVE DIAGNOSIS: Cataract Left Eye POSTOPERATIVE DIAGNOSIS: Cataract Left Eye PROCEDURE: Cataract removal and placement of posterior chamber implant, left eye SURGEON: Sai Jones ANESTHESIA: Topical with sedation COMPLICATIONS: None ESTIMATED BLOOD LOSS: Minimal DESCRIPTION OF PROCEDURE: After proper informed consent was obtained, the patient, a 74 female, was taken to the Operating Room and the left eye was anesthetized with tetracaine. The left eye was then prepped and draped in the usual manner. A wire lid speculum was placed. A paracentesis was made at the left hand position. Preservative free lidocaine was injected into the anterior chamber followed by viscoelastic. A clear corneal incision was made in the temporal position. A capsulorrhexis was preformed and the central nuclear and cortical material were removed. The posterior capsule was polished and an Jakob 18.5 AU00T0 was placed into the capsular bag. The residual viscoelastic was aspirated and balanced saline solution was injected into the anterior chamber. Moxifloxacin was injected into the anterior chamber. The wound was checked and found to be water tight. The patient tolerated the procedure well without complications. SAI JONES MD July 08, 2019 07:48
--- NOTE | 2019-07-08 07:48 | Ophthalmologist Pre-Op Note ---
Pre-Operative Progress Note H&P Reviewed The H&P was reviewed, patient examined and no changes noted. Date H&P Reviewed: July 08, 2019 Time H&P Reviewed: 07:20 Pre-Op Dx Cataract, Left Eye SONNY JONES MD July 08, 2019 07:48
--- OUTSIDE RECORDS SUMMARY | 2019-07-08 07:57 | XMS REPORT | Clinical Summary ---
Author Author [facility] Organization [facility] Address Unknown Phone Unavailable Care Team Providers Care Lead Installer Name Role Phone Rowan Palumbo MD Unavailable Pricila Harris MD Unavailable Source Comments Some departments are not documenting in the electronic medical record. If you d o not see the information that you expected, contact Release of Information in [facility] Information Management department at [phone] for further assistan ce in locating additional records.[facility] Allergies No Known Allergies Medications End Date Status Medication Sig Dispensed Refills Start Date Active metoprolol (LOPRESSOR) 50 Take 75 mg by 0 mg tablet mouth twice daily. Active lisinopril (PRINIVIL, Take 40 mg by 0 ZESTRIL) 40 mg tablet mouth daily. Active simvastatin (ZOCOR) 20 mg Take 20 mg by 0 tablet mouth at bedtime daily. Active aspirin EC 81 mg tablet Take 81 mg by 0 mouth daily. Active CALCIUM CARBONATE/VITAMIN Take by 0 D3 (CALCIUM 600 + D PO) mouth. Active DOCOSAHEXANOIC ACID/EPA Take 2,400 mg 0 (FISH OIL PO) by mouth twice daily. Active MULTIVITS,CA,MINERALS/IRO Take by 0 N/FA (ONE-A-DAY WOMENS mouth. FORMULA PO) Active Diphenhydramine-Acetamino Take by 0 phen (TYLENOL PM EXTRA mouth at STRENGTH) 25-500 mg tab bedtime tablet daily. Active Problems Problem Noted Date Hypertension Last Assessment & Plan: BP is well controlled. Hyperlipidemia Immunizations Name Administration Dates Next Due Flu Vaccine >64yo 11/28/2014 High-dose (Preservative Free) Family History Medical History Relation Name Comments Hypertension Brother Hypertension Father Hypertension Mother Hypertension Sister Cancer-Colon Cousin Relation Name Status Comments Brother Father Mother Sister Cousin Social History Date Tobacco Use Types Packs/Day Years Used Never Smoker Smokeless Tobacco: Never Used Tobacco Cessation: Counseling Given: No Drinks/Week oz/Week Comments Alcohol Use 0 Standard drinks or equivalent 0.0 No Sex Assigned at Date Recorded Not on file Industry Job Start Date Occupation Not on file Not on file Not on file Travel End Travel History Travel Start No recent travel history available. Last Filed Vital Signs Reading Time Taken Comments Vital Sign 138/84 02/15/2015 9:12 AM PHYSICAL THERAPY RESIDENT Blood Pressure 91 02/15/2015 9:12 AM PHYSICAL THERAPY RESIDENT Pulse 36.4 C (97.5 F) 02/15/2015 9:12 AM PHYSICAL THERAPY RESIDENT Temperature 20 02/15/2015 9:12 AM PHYSICAL THERAPY RESIDENT Respiratory Rate - - Oxygen Saturation - - Inhaled Oxygen Concentration 84.3 kg (185 lb 12.8 oz) 02/15/2015 9:12 AM PHYSICAL THERAPY RESIDENT Weight 157.5 cm (5' 2") 02/15/2015 9:12 AM PHYSICAL THERAPY RESIDENT Height 33.98 02/15/2015 9:12 AM PHYSICAL THERAPY RESIDENT Body Mass Index Plan of Treatment Health Maintenance Due Date Last Done Comments DTAP/TDAP VACCINES (1 - 06/19/1963 Tdap) HEPATITIS C SCREENING 06/19/1963 PHYSICAL (COMPREHENSIVE) 06/19/1963 EXAM SHINGLES RECOMBINANT 06/19/1995 VACCINE (1 of 2) PNEUMONIA (PPSV23) 2010 VACCINE (1 of 1 - PPSV23) BREAST CANCER SCREENING 10/11/2015 10/10/2014 (Previously completed) INFLUENZA VACCINE 11/17/2019 11/28/2014 COLORECTAL CANCER 12/18/2024 12/18/2014 SCREENING (Previously completed) OSTEOPOROSIS Completed 11/25/2012 SCREENING/MONITORING Results Not on filefrom Last 3 Months
[2019-07-08 08:00] VITALS: BP 121/70
--- OUTSIDE RECORDS SUMMARY | 2019-07-08 08:04 | XMS REPORT | CCD ---
Author Author Stephanie Yeung Organization Evelyn Yeung MD, [facility] Address [address] [place] [address] Phone Care Team Providers Care Bag Builder Name Role Phone Evelyn Yeung PP Unavailable CCM Unavailable Summary Purpose Interface Exchange Insurance Providers Payer name Policy type / Coverage type Covered constitution party ID Effective Begin Date Effective End Date [facility] Commercial Insurance [id number] 2017 Unknown Family history First cousin Diagnosis Age At Onset Colorectal malignancy Unknown Mother Diagnosis Age At Onset No Family Disease Entered N/A Brother Diagnosis Age At Onset No Family Disease Entered N/A Daughter Diagnosis Age At Onset No Family Disease Entered N/A Sister Diagnosis Age At Onset No Family Disease Entered N/A Father Diagnosis Age At Onset Hypertension Unknown Alzheimer's Disease Unknown Arthritis Unknown Social History Social History Element Codes Description Effective Dates Marital status Unknown M arried 10/14/2010 Employment Unknown Retir ed from [employer] in [employer] 10/14/[address]: 474529872 Never smoker 10/14/[address]: 495535807 Never drinks alcohol 10/14/2010 Has the patient ever used illegal drugs? Unknown Has never used illegal drugs 011 Allergies, Adverse Reactions, Alerts Substance Reaction Codes Entered Date Inactivated Date Status * NO KNOWN ENVIRONME NTAL ALLERGIES Unknown 10/04/2013 No Inactive Date Active * NO KNOWN FOOD PHYLLIS RGIES Unknown 10/04/2013 No Inactive Date Active AMIDE TYPE ANESTHETICS Unknown 10/10/2015 No Inactive Date Active Past Medical History Illness Codes Condition Status Onset Date Resolved Date Encounter for immuni zation ICD-9: V03.9 ICD-10: Z23 Active 11/01/2018 Unknown Sebaceous cyst ICD-9: 706.2 ICD-10: L72.3 Active 11/01/2018 Unknown VACCIN FOR INFLUENZA ICD-9: V04.81 ICD-10: Z23 Active 11/01/2018 Unknown Essential (primary) hypertension ICD-9: 401.1 ICD-10: I10 Active 02/21/2016 Unknown Acute laryngopharyng itis ICD-9: 465.0 ICD-10: J06.0 Active 07/08/2018 Unknown Other allergic rhinitis ICD-9: 477.8 ICD-10: J30.89 Active 04/24/2017 Unknown Mixed hyperlipidemia ICD-9: 272.2 ICD-10: E78.2 Active 10/16/2016 Unknown Obstructive sleep ap raul (adult) (pediatric) ICD-9: 327.23 ICD-10: G47.33 Active 02/11/2018 Unknown Encounter for screen ing mammogram for malignant neoplasm of breast ICD-9: V76.12 ICD-10: Z12.31 Active 10/16/2016 Unknown Contusion of right u pper arm, initial encounter ICD-9: 923.9 ICD-10: S40.021A Active 10/23/2017 Unknown Corns and callosities ICD-9: 700 ICD-10: L84 Active 06/29/2017 Unknown Plantar wart ICD-9: 078.12 ICD-10: B07.0 Active 10/23/2017 Unknown Pain in right toe(s) ICD-9: 729.5 ICD-10: M79.674 Active 06/29/2017 Unknown Acute bronchitis, un specified ICD-9: 466.0 ICD-10: J20.9 Active 05/01/2017 Unknown Cough ICD-9: 786.2 ICD-10: R05 Active 04/24/2017 Unknown Other acute sinusitis ICD-9: 461.8 ICD-10: J01.80 Active 04/24/2017 Unknown Rash and other nonsp ecific skin eruption ICD-9: 782.1 ICD-10: R21 Active 03/11/2017 Unknown Low back pain ICD-9: 724.2 ICD-10: M54.5 Active 06/19/2016 Unknown Primary central slee p apnea ICD-9: 327.22 ICD-10: G47.31 Active 06/19/2016 Unknown Pain in left shoulder ICD-9: 719.41 ICD-10: M25.512 Active 02/21/2016 Unknown Pain in left upper arm ICD-9: 729.5 ICD-10: M79.622 Active 03/13/2016 Unknown Orthostatic hypotension ICD-9: 458.0 ICD-10: I95.1 Active 12/17/2015 Unknown Dysuria ICD-9: 788.1 ICD-10: R30.0 Active 11/12/2015 Unknown Encounter for genera l adult medical examination without abnormal findings ICD-9: V70.0 ICD-10: Z00.00 Active 10/09/2015 Unknown Essential (primary) hypertension ICD-9: 401.9 ICD-10: I10 Active 07/22/2015 Unknown Anemia, unspecified ICD- 9: 285.9 ICD-10: D64.9 Active 06/04/2015 Unknown Primary central slee p apnea ICD-9: 780.57 ICD-10: G47.31 Active 06/04/2015 Unknown Encounter for follow -up examination after completed treatment for conditions other than malignant neoplasm ICD-9: V67.00 ICD-10: Z09 Active 04/08/2015 Unknown Pain in right knee ICD- 9: 719.46 ICD-10: M25.561 Active 04/08/2015 Unknown Left upper quadrant pain ICD-9: 789.02 ICD-10: R10.12 Active 11/16/2014 Unknown Lower abdominal pain , unspecified ICD-9: 789.09 ICD-10: R10.30 Active 11/16/2014 Unknown 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 Active 11/16/2014 Unknown Left groin pain ICD-9: 789.09 Active 10/30/2014 Unknown Reyes's cyst of knee ICD-9: 727.51 Active 05/29/2014 Unknown ESSENTIAL HYPERTENSION ICD-9: 401.9 Active 11/29/2013 Unknown HYPERLIPIDEMIA ICD-9: 272.4 Active 11/29/2013 Unknown CELLULITIS OF FACE ICD- 9: 682.0 Active 10/04/2013 Unknown Abnormal Pap smear ICD- 9: 796.9 Active 08/21/2011 Unknown Hot flashes due to s urgical menopause ICD-9: 627.4 Active 06/2011 Unknown Annual physical exam ICD-9: V70.0 Active 04/14/2011 Unknown VACCIN FOR INFLUENZA ICD-9: V04.81 Active 12/19/2010 Unknown Hyperlipidemia Unknown Active 10/14/2010 Unknow n Hypertension Unknown Active 10/14/2010 Unknow n Urinary incontinence Unknown Active 10/14/2010 Unknown Dyspareunia, female ICD- 9: 625.0 Active 10/14/2010 Unknown Problems Condition Codes Effectiv e Dates Condition Status Encounter for immuni zation ICD-9: V03.9 ICD-10: Z23 11/01/2018 Active Sebaceous cyst ICD-9: 706.2 ICD-10: L72.3 11/01/2018 Active VACCIN FOR INFLUENZA ICD-9: V04.81 ICD-10: Z23 11/01/2018 Active Essential (primary) hypertension ICD-9: 401.1 ICD-10: I10 02/21/2016 Active Acute laryngopharyng itis ICD-9: 465.0 ICD-10: J06.0 07/08/2018 Active Other allergic rhinitis ICD-9: 477.8 ICD-10: J30.89 04/24/2017 Active Mixed hyperlipidemia ICD-9: 272.2 ICD-10: E78.2 10/16/2016 Active Obstructive sleep ap raul (adult) (pediatric) ICD-9: 327.23 ICD-10: G47.33 02/11/2018 Active Encounter for screen ing mammogram for malignant neoplasm of breast ICD-9: V76.12 ICD-10: Z12.31 10/16/2016 Active Contusion of right u pper arm, initial encounter ICD-9: 923.9 ICD-10: S40.021A 10/23/2017 Active Corns and callosities ICD-9: 700 ICD-10: L84 06/29/2017 Active Plantar wart ICD-9: 078.12 ICD-10: B07.0 10/23/2017 Active Pain in right toe(s) ICD-9: 729.5 ICD-10: M79.674 06/29/2017 Active Acute bronchitis, un specified ICD-9: 466.0 ICD-10: J20.9 05/01/2017 Active Cough ICD-9: 786.2 ICD-10: R05 04/24/2017 Active Other acute sinusitis ICD-9: 461.8 ICD-10: J01.80 04/24/2017 Active Rash and other nonsp ecific skin eruption ICD-9: 782.1 ICD-10: R21 03/11/2017 Active Low back pain ICD-9: 724.2 ICD-10: M54.5 06/19/2016 Active Primary central slee p apnea ICD-9: 327.22 ICD-10: G47.31 06/19/2016 Active Pain in left shoulder ICD-9: 719.41 ICD-10: M25.512 02/21/2016 Active Pain in left upper arm ICD-9: 729.5 ICD-10: M79.622 03/13/2016 Active Orthostatic hypotension ICD-9: 458.0 ICD-10: I95.1 12/17/2015 Active Dysuria ICD-9: 788.1 ICD-10: R30.0 11/12/2015 Active Encounter for genera l adult medical examination without abnormal findings ICD-9: V70.0 ICD-10: Z00.00 10/09/2015 Active Essential (primary) hypertension ICD-9: 401.9 ICD-10: I10 07/22/2015 Active Anemia, unspecified ICD- 9: 285.9 ICD-10: D64.9 06/04/2015 Active Primary central slee p apnea ICD-9: 780.57 ICD-10: G47.31 06/04/2015 Active Encounter for follow -up examination after completed treatment for conditions other than malignant neoplasm ICD-9: V67.00 ICD-10: Z09 04/08/2015 Active Pain in right knee ICD- 9: 719.46 ICD-10: M25.561 04/08/2015 Active Left upper quadrant pain ICD-9: 789.02 ICD-10: R10.12 11/16/2014 Active Lower abdominal pain , unspecified ICD-9: 789.09 ICD-10: R10.30 11/16/2014 Active 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 11/16/2014 Active Left groin pain ICD-9: 789.09 10/30/2014 Active Reyes's cyst of knee ICD-9: 727.51 05/29/2014 Active ESSENTIAL HYPERTENSION ICD-9: 401.9 11/29/2013 Active HYPERLIPIDEMIA ICD-9: 272.4 11/29/2013 Active CELLULITIS OF FACE ICD- 9: 682.0 10/04/2013 Active Abnormal Pap smear ICD- 9: 796.9 08/21/2011 Active Hot flashes due to s urgical menopause ICD-9: 627.4 08/21/2011 Active Annual physical exam ICD-9: V70.0 04/14/2011 Active VACCIN FOR INFLUENZA ICD-9: V04.81 12/19/2010 Active Hyperlipidemia Unknown 10/14/2010 Active Hypertension Unknown 10/14/2010 Active Urinary incontinence Unknown 10/14/2010 Active Dyspareunia, female ICD- 9: 625.0 10/14/2010 Active Medications Medication Codes Instruc tions Start Date Stop Date Sta tus Fill Instructions Kenalog 40 mg/mL wander pension for injection RxNorm: 1485674 1 Milliliter(s) Inj 07/08/2018 07/08/2018 In active Zithromax Z-Doroteo 250 mg tablet RxNorm: 566167 1 Tablet(s) PO UD 07/08/2018 09/05/2018 Inactive metoprolol succinate ER 50 mg tablet,extended release 24 hr RxNorm: 172692 Tablet(s) TAKE 1 TABLET TWICE DAILY 05/27/2018 06/25/2018 Inactive metoprolol succinate ER 50 mg tablet,extended release 24 hr RxNorm: 719713 Tablet(s) TAKE 1 TABLET TWICE DAILY 05/25/2018 05/26/2018 Inactive potassium chloride E R 10 mEq capsule,extended release RxNorm: 905967 1 Capsule(s) PO TIW TAKE 1 CAPSULE THREE TIMES WEEKLY 04/23/2018 04/17/2019 Active three times weekly- sent on 04/21/18- requested again 04/23/18 potassium chloride E R 10 mEq capsule,extended release RxNorm: 034857 1 Capsule(s) PO TIW TAKE 1 CAPSULE THREE TIMES WEEKLY 04/21/2018 04/22/2018 Inactive thre e times weekly chlorthalidone 25 mg tablet RxNorm: 651743 Tablet(s) TAKE 1 TABL ET EVERY MORNING 03/26/2018 03/20/2019 Ac tive simvastatin 20 mg ta blet RxNorm: 708625 Tablet(s) TAKE 1 TABL ET EVERY NIGHT 03/26/2018 03/20/2019 Ac tive lisinopril 20 mg tablet RxNorm: 252790 1 Tablet(s) PO daily 02/11/2018 05/06/2019 Active this is an update on her RX - she is onl y taking 20mg daily -please delete other rx's lisinopril 20 mg tablet RxNorm: 483152 1 Tablet(s) PO daily 11/20/2017 02/10/2018 Inactive lisinopril 40 mg tablet RxNorm: 933742 Tablet(s) TAKE 1 TABLET EVERY DAY 11/16/2017 11/19/2017 In active metoprolol succinate ER 50 mg tablet,extended release 24 hr RxNorm: 049463 Tablet(s) TAKE 1 TABLET TWICE DAILY 06/05/2017 05/24/2018 Inactive metoprolol succinate ER 50 mg tablet,extended release 24 hr RxNorm: 870543 Tablet(s) TAKE 1 TABLET TWICE DAILY 06/05/2017 06/04/2017 Inactive potassium chloride E R 10 mEq capsule,extended release RxNorm: 360429 1 Capsule(s) PO TIW TAKE 1 CAPSULE THREE TIMES WEEKLY 05/07/2017 04/20/2018 Inactive thre e times weekly potassium chloride E R 10 mEq capsule,extended release RxNorm: 351315 1 Capsule(s) PO daily TAKE 1 CAPSULE THREE TIMES WEEKLY 05/05/2017 05/06/2017 Inactive metoprolol succinate ER 50 mg tablet,extended release 24 hr RxNorm: 992401 Tablet(s) TAKE 1 TABLET TWICE DAILY 05/04/2017 06/04/2017 Inactive Phenergan with Codei ne Syrup RxNorm: 5-10 Milliliter(s) PO QID a s needed cough 05/01/2017 10/31/2018 In active cefdinir 300 mg capsule RxNorm: 747350 1 Capsule(s) PO BID 05/01/2017 05/07/2017 Inactive Zithromax Z-Doroteo 250 mg tablet RxNorm: 410301 1 Tablet(s) PO UD 04/24/2017 06/22/2017 Inactive Phenergan with Codei ne Syrup RxNorm: 5-10 Milliliter(s) PO QID a s needed cough 04/24/2017 04/30/2017 In active prednisone 20 mg tablet RxNorm: 646038 2 Tablet(s) PO daily 04/24/2017 04/28/2017 Inactive chlorthalidone 25 mg tablet RxNorm: 646936 Tablet(s) TAKE 1 TABL ET EVERY MORNING 04/13/2017 03/25/2018 In active simvastatin 20 mg ta blet RxNorm: 848816 Tablet(s) TAKE 1 TABL ET EVERY NIGHT 04/08/2017 03/25/2018 In active Kenalog 40 mg/mL wander pension for injection RxNorm: 0107788 1 Milliliter(s) Inj 03/11/2017 03/11/2017 In active prednisone 20 mg tablet RxNorm: 309434 2 Tablet(s) PO daily 03/11/2017 03/15/2017 Inactive simvastatin 20 mg ta blet RxNorm: 032467 TAKE 1 TABLET EVERY DAY 01/02/2017 04/07/2017 Inactive lisinopril 40 mg tablet RxNorm: 428394 TAKE 1 TABLET EVERY DAY 11/24/2016 08/20/2017 Inactive metoprolol succinate ER 50 mg tablet,extended release 24 hr RxNorm: 079276 TAKE 1 TABLET TWICE DAILY 11/24/2016 05/03/2017 Inactive fluconazole 150 mg t ablet RxNorm: 559898 1 Tablet(s) PO daily prn yeast infection symptoms 10/16/2016 10/25/2016 Inactive potassium chloride E R 10 mEq capsule,extended release RxNorm: 049708 TAKE 1 CAPSULE THREE TIMES WEEKLY 08/12/2016 05/04/2017 Inactive chlorthalidone 25 mg tablet RxNorm: 850695 TAKE 1 TABLET EVERY M ORNING 06/30/2016 04/12/2017 In active simvastatin 20 mg ta blet RxNorm: 543481 TAKE 1 TABLET EVERY DAY 01/21/2016 01/01/2017 Inactive lisinopril 40 mg tablet RxNorm: 079186 1/2 Tablet(s) daily 12/18/2015 11/23/2016 Inactive metoprolol succinate ER 50 mg tablet,extended release 24 hr RxNorm: 905338 Tablet(s) TAKE 1 TABLET TWICE DAILY 12/13/2015 11/23/2016 Inactive metoprolol succinate ER 50 mg tablet,extended release 24 hr RxNorm: 361629 Tablet(s) TAKE 1 TABLET TWICE DAILY 12/13/2015 12/12/2015 Inactive metoprolol succinate ER 50 mg tablet,extended release 24 hr RxNorm: 009768 Tablet(s) TAKE 1 TABLET TWICE DAILY 11/13/2015 12/12/2015 Inactive Keflex 500 mg capsule RxNorm: 097220 1 Capsule(s) PO TID 11/13/2015 11/19/2015 Inactive chlorthalidone 25 mg tablet RxNorm: 749937 1 Tablet(s) PO QAM 08/08/2015 06/29/2016 Inactive potassium chloride E R 10 mEq capsule,extended release RxNorm: 389509 1 Capsule(s) PO TIW 08/08/2015 08/01/2016 Inactive potassium chloride E R 10 mEq capsule,extended release RxNorm: 200581 1 Capsule(s) PO TIW 06/20/2015 08/07/2015 Inactive lisinopril 40 mg tablet RxNorm: 082772 TAKE 1 TABLET EVERY DAY 2015 12/17/2015 Inactive potassium chloride E R 10 mEq capsule,extended release RxNorm: 159598 1 Capsule(s) PO TIW 2015 06/19/2015 Inactive chlorthalidone 25 mg tablet RxNorm: 427252 1 Tablet(s) PO QAM 06/05/2015 08/07/2015 Inactive potassium chloride E R 10 mEq capsule,extended release RxNorm: 379697 1 Capsule(s) PO TIW 06/05/2015 06/17/2015 Inactive lisinopril 40 mg tablet RxNorm: 948135 1/2 Tablet(s) PO BID 05/07/2015 06/17/2015 Inactive amoxicillin 500 mg t ablet RxNorm: 798181 4 Tablet(s) PO one ho ur prior to dental appts UD 05/07/2015 10/08/2015 Inactive amoxicillin 500 mg t ablet RxNorm: 583670 4 Tablet(s) PO one ho ur prior to dental appts 05/04/2015 05/06/2015 Inactive lisinopril 40 mg tablet RxNorm: 846904 1/2 Tablet(s) PO BID 05/04/2015 05/06/2015 Inactive amoxicillin 500 mg t ablet RxNorm: 313894 4 Tablet(s) PO one ho ur prior to dental appts 05/01/2015 05/03/2015 Inactive lisinopril 40 mg tablet RxNorm: 041439 1/2 Tablet(s) PO BID TAKE 1 TABLET DAILY 05/01/2015 05/03/2015 In active metoprolol succinate ER 50 mg tablet,extended release 24 hr RxNorm: 825729 TAKE 1 AND 1/2 TABLETS TWICE DAILY 04/16/2015 11/12/2015 Inactive simvastatin 20 mg ta blet RxNorm: 084030 TAKE 1 TABLET EVERY DAY 04/16/2015 01/10/2016 Inactive acyclovir 800 mg tablet RxNorm: 316415 1 Tablet(s) PO TID 11/17/2014 11/26/2014 Inactive acyclovir 400 mg tablet RxNorm: 881553 2 Tablet(s) PO QID 10/06/2014 10/05/2014 Inactive acyclovir 400 mg tablet RxNorm: 501595 2 Tablet(s) PO QID 10/06/2014 10/15/2014 Inactive cephalexin 500 mg ca psule RxNorm: 063824 1 Capsule(s) PO TID 08/31/2014 09/04/2014 Inactive Bactroban 2 % topica l ointment RxNorm: 575967 1 Application TOP BID 08/31/2014 10/08/2015 Inactive Bactroban 2 % topica l ointment RxNorm: 061693 1 Application TOP BID 08/31/2014 09/04/2014 Inactive simvastatin 20 mg ta blet RxNorm: 214049 Tablet(s) TAKE 1 TABL ET DAILY 03/31/2014 04/15/2015 In active lisinopril 40 mg tablet RxNorm: 280137 Tablet(s) TAKE 1 TABLET DAILY 03/31/2014 04/30/2015 In active metoprolol succinate ER 50 mg tablet,extended release 24 hr RxNorm: 599199 Tablet(s) TAKE ONE AND ONE-HALF TABLETS (75 MG) TWICE A DAY 03/09/2014 04/15/2015 Inactive Prio r authorization approved for this med until 03-09-2015 metoprolol succinate ER 50 mg tablet,extended release 24 hr RxNorm: 200073 Tablet(s) TAKE ONE AND ONE-HALF TABLETS (75 MG) TWICE A DAY 03/06/2014 03/08/2014 Inactive simvastatin 20 mg ta blet RxNorm: 904668 TAKE 1 TABLET DAILY 01/24/2014 03/30/2014 Inactive lisinopril 40 mg tablet RxNorm: 097270 TAKE 1 TABLET DAILY 01/24/2014 03/30/2014 Inactive simvastatin 20 mg ta blet RxNorm: 652287 TAKE 1 TABLET DAILY 10/24/2013 01/23/2014 Inactive cephalexin 500 mg ca psule RxNorm: 993708 1 Capsule(s) PO TID 10/04/2013 10/08/2013 Inactive metoprolol succinate ER 50 mg tablet,extended release 24 hr RxNorm: 168667 TAKE ONE AND ONE-HALF TABLETS (75 MG) TWICE A DAY 09/16/2013 03/05/2014 Inactive simvastatin 20 mg ta blet RxNorm: 739806 Tablet(s) PO TAKE 1 T ABLET DAILY 04/21/2013 10/23/2013 In active metoprolol succinate ER 50 mg tablet,extended release 24 hr RxNorm: 523011 Tablet(s) PO TAKE ONE AND ONE-HALF TABLETS (75 MG) TWICE A DAY 03/24/2013 09/15/2013 Inactive metoprolol succinate ER 50 mg tablet,extended release 24 hr RxNorm: 125050 Tablet(s) PO TAKE ONE AND ONE-HALF TABLETS (75 MG) TWICE A DAY 12/20/2012 03/23/2013 Inactive lisinopril 40 mg tablet RxNorm: 105535 Tablet(s) PO TAKE 1 TABLET DAILY 11/18/2012 01/23/2014 In active simvastatin 20 mg ta blet RxNorm: 999120 Tablet(s) PO TAKE 1 T ABLET DAILY 08/06/2012 04/20/2013 In active metoprolol succinate ER 50 mg tablet,extended release 24 hr RxNorm: 900304 Tablet(s) PO TAKE ONE AND ONE-HALF TABLETS (75 MG) TWICE A DAY 06/15/2012 12/19/2012 Inactive metoprolol succinate ER 50 mg tablet,extended release 24 hr RxNorm: 965444 Tablet(s) PO TAKE ONE AND ONE-HALF TABLETS (75 MG) TWICE A DAY 03/01/2012 06/14/2012 Inactive Diflucan 150 mg tablet RxNorm: 364600 1 Tablet(s) PO daily 12/03/2011 12/02/2011 Inactive Diflucan 150 mg tablet RxNorm: 400416 1 Tablet(s) PO daily 12/03/2011 12/07/2011 Inactive Diflucan 150 mg tablet RxNorm: 638330 1 Tablet(s) PO daily 12/03/2011 12/02/2011 Inactive Influenza Virus Vacc ine 0.5 mL RxNorm: IM 11/25/2011 11/25/2011 Inactive metoprolol succinate ER 50 mg tablet,extended release 24 hr RxNorm: 997566 Tablet(s) PO 09/16/2011 02/29/2012 Inactive TAKE ONE AND ONE-HALF TABLETS (75 MG) TW ICE A DAY lisinopril 40 mg tablet RxNorm: 839662 Tablet(s) PO 08/25/2011 11/17/2012 Inactive TAKE 1 TABLET DAILY simvastatin 20 mg ta blet RxNorm: 674395 Tablet(s) PO 07/31/2011 08/05/2012 Inactive TAKE 1 TABLET DAILY Influenza Virus Vacc ine 0.5 mL RxNorm: 1/2 Milliliter(s) IM 12/19/2010 12/19/2010 Inactive metoprolol succinate ER 50 mg tablet,extended release 24 hr RxNorm: 722477 Tablet(s) PO 12/02/2010 09/15/2011 Inactive TAKE ONE AND ONE-HALF TABLETS (75 MG) TW ICE A DAY Calcium 600 + D(3) 6 00 mg (1,500 mg)-400 unit Tab RxNorm: 783347 1 Tablet(s) PO daily No Start Date Active Tylenol PM Extra Str ength 25 mg-500 mg Tab RxNorm: 2456730 1 Tablet(s) PO QHS No Start Date Active Probiotic & Acidophi lesa oral RxNorm: oral No Start D ate Active Fish Oil 1,200 mg-14 4 mg-216 mg Cap RxNorm: 1 Capsule(s) PO BID No Start Date Active 1400mg multivitamin Cap RxNorm: 1 Capsule(s) PO daily No Start Date Active Aspirin Childrens 81 mg Chewable Tab RxNorm: 825009 1 Tablet(s) PO daily No Start Date Active premarin 0.5% Vagina l cream RxNorm: [address] art Date 08/30/2014 Inactive simvastatin 20 mg Tab RxNorm: 424062 1 Tablet(s) PO daily No Start Date 07/30/2011 Inactive lisinopril 40 mg Tab RxNorm: 273497 1 Tablet(s) PO daily No Start Date 08/24/2011 Inactive Fish Oil 340 mg-1,00 0 mg Cap RxNorm: 1 Capsule(s) PO TID No Start Date 04/14/2011 Inactive [place] 20 mg Tab RxNorm: 437520 1 Tablet(s) PO daily No Start Date 04/14/2011 Inactive metoprolol succinate ER 50 mg 24 hr Tab RxNorm: 110285 1 &1/2 Tablet(s) PO d aily No Start Date 12/01/2010 Inactive Medication Administered Medication Codes Instruc tions Start Date Status Kenalog 40 mg/mL suspension for injection RxNorm: 9584830 1Milliliter 07/08/2018 N o longer Active Kenalog 40 mg/mL suspension for injection RxNorm: 1665526 1Milliliter 03/11/2017 N o longer Active Influenza Virus Vaccine 0.5 mL RxNorm: 11/25/2011 No longer Active Influenza Virus Vaccine 0.5 mL RxNorm: 1/2Milliliter 12/19/2010 No longer Active Immunizations Vaccine Codes Date Status Influenza CVX: 141 11/01 completed Influenza CVX: 141 10/23 completed Influenza CVX: 141 12/09 completed Influenza CVX: 141 11/12 completed Influenza CVX: 141 11/24 completed Influenza CVX: 141 12/19 completed Assessments Condition Codes Effectiv e Dates Encounter for immunization ICD-10: Z 23 ICD-9: V03.9 11/01/2018 Sebaceous cyst ICD-10: L72.3 ICD-9: 706.2 11/01/2018 Essential (primary) hypertension ICD -10: I10 ICD-9: 401.1 09/06/2018 Acute laryngopharyngitis ICD-10: J06 .0 ICD-9: 465.0 07/08/2018 Other allergic rhinitis ICD-10: J30. 89 ICD-9: 477.8 07/08/2018 Obstructive sleep apnea (adult) (pediatric) ICD-10: G47.33 ICD-9: 327.23 02/11/2018 Mixed hyperlipidemia ICD-10: E78.2 ICD-9: 272.2 02/11/2018 Encounter for screening mammogram for ma lignant neoplasm of breast ICD-10: Z12.31 ICD-9: V76.12 10/28/2017 Plantar wart ICD-10: B07.0 ICD-9: 078.12 10/23/2017 Contusion of right upper arm, initial encounter ICD-10: S40.021A ICD-9: 923.9 10/23/2017 VACCIN FOR INFLUENZA ICD-10: Z23 ICD-9: V04.81 10/23/2017 Corns and callosities ICD-10: L84 ICD-9: 700 10/23/2017 Pain in right toe(s) ICD-10: M79.674 ICD-9: 729.5 06/29/2017 Cough ICD-10: R05 ICD-9: 786.2 05/01/2017 Acute bronchitis, unspecified ICD-10 : J20.9 ICD-9: 466.0 05/01/2017 Other acute sinusitis ICD-10: J01.80 ICD-9: 461.8 04/24/2017 Rash and other nonspecific skin eruption ICD-10: R21 ICD-9: 782.1 03/11/2017 Primary central sleep apnea ICD-10: G47.31 ICD-9: 327.22 06/19/2016 Low back pain ICD-10: M54.5 ICD-9: 724.2 06/19/2016 Pain in left shoulder ICD-10: M25.51 2 ICD-9: 719.41 03/13/2016 Pain in left upper arm ICD-10: M79.6 22 ICD-9: 729.5 03/13/2016 Orthostatic hypotension ICD-10: I95. 1 ICD-9: 458.0 12/18/2015 Dysuria ICD-10: R30.0 ICD-9: 788.1 11/13/2015 Encounter for general adult medical exam ination without abnormal findings ICD-10: Z00.00 ICD-9: V70.0 10/10/2015 Essential (primary) hypertension ICD -10: I10 ICD-9: 401.9 07/23/2015 Anemia, unspecified ICD-10: D64.9 ICD-9: 285.9 06/05/2015 Primary central sleep apnea ICD-10: G47.31 ICD-9: 780.57 06/05/2015 Pain in right knee ICD-10: M25.561 ICD-9: 719.46 04/09/2015 Encounter for follow-up examination afte r completed treatment for conditions other than malignant neoplasm ICD-10: Z09 ICD-9: V67.00 04/09/2015 Lower abdominal pain, unspecified IC D-10: R10.30 ICD-9: 789.09 11/17/2014 Left upper quadrant pain ICD-10: R10 .12 ICD-9: 789.02 11/17/2014 Recurrent oral aphthae ICD-10: K12.0 ICD-9: 528.2 11/17/2014 Left groin pain ICD-9: 789.09 10/31/2014 HYPERLIPIDEMIA ICD-9: 272.4 09/28/2014 ESSENTIAL HYPERTENSION ICD-9: 401.9 09/28/2014 CELLULITIS OF FACE ICD-9: 682.0 08/31/2014 Reyes's cyst of knee ICD-9: 727.51 05/29/2014 ABN FINDINGS NEC ICD-9: 796.9 11/30/2012 VACCIN FOR INFLUENZA ICD-9: V04.81 11/25/2011 Hot flashes due to surgical menopause ICD-9: 627.4 08/21/2011 Annual physical exam ICD-9: V70.0 04/14/2011 Dyspareunia, female ICD-9: 625.0 10/14/2010 Reason For Visit Reason For Visit Effective Dates Notes cyst 11/01/2018 hypertension 09/06/2018 sinus congestion 07/08/2018 hypertension 02/11/2018 skin lesion 10/23/2017 foot pain 08/13/2017 foot pain 07/16/2017 foot pain 06/29/2017 cough 05/01/2017 cough 04/24/2017 rash 03/11/2017 hypertension 02/19/2017 vaccination against influenza 12/09/2016 hypertension 10/16/2016 hypertension 06/19/2016 shoulder pain 03/13/2016 blood pressure followup 02/22/2016 Hospital Follow Up 12/18/2015 hypertension 11/13/2015 Annual Medicare Wellness Exam 10/10/2015 hypertension 07/10/2015 hypertension 06/05/2015 hypertension 05/01/2015 Hospital Follow Up 04/09/2015 knee pain 03/26/2015 pain 11/17/2014 ~generic 10/31/2014 groi n lump eyelid edema 09/28/2014 --Resolved eyelid edema 08/31/2014 knee pain 05/29/2014 blo od in stool x 1 -- 2 weeks ago Had soreness while sitting and was in car for 2 solid days hypertension 11/29/2013 eyelid pain 10/04/2013 hypertension 05/31/2013 ~generic 11/30/2012 Adriana ent is here for pelvic exam. Has had hysterectomy. had pap that was ASCUS in may. hypertension 05/31/2012 Pap smear abnormality 11/25/2011 Pap smear abnormality 08/21/2011 well woman exam (65+ years) 04/14/2011 vaccination against influenza 12/19/2010 hypertension 10/14/2010 Results Observation Observation Code Item Item Code Result Date Cbc With Differential Ord2 WBC 5.36 K/ul 10/17/2016 Cbc With Differential Ord2 RBC 3.97 M/ul 10/17/2016 Cbc With Differential Ord2 HGB 12.0 g/dl 10/17/2016 Cbc With Differential Ord2 HCT 35.5 % 10/17/2016 Cbc With Differential Ord2 Neut% 64.3 % 10/17/2016 Cbc With Differential Ord2 MCV 89.4 fl 10/17/2016 Cbc With Differential Ord2 Lymph% 25.6 % 10/17/2016 Cbc With Differential Ord2 MCH 30.2 pg 10/17/2016 Cbc With Differential Ord2 [place]% 6.3 % 10/17/2016 Cbc With Differential Ord2 MCHC 33.8 pg 10/17/2016 Cbc With Differential Ord2 Eos% 3.4 % 10/17/2016 Cbc With Differential Ord2 PLT 213 K/ul 10/17/2016 Cbc With Differential Ord2 Baso% 0.4 % 10/17/2016 Cbc With Differential Ord2 RDW 13.5 % 10/17/2016 Cbc With Differential Ord2 Neut ABS# 3.45 K/ul 10/17/2016 Cbc With Differential Ord2 Lymph ABS# 1.37 K/ul 10/17/2016 Cbc With Differential Ord2 [place] ABS# 0.3 K/ul 10/17/2016 Cbc With Differential Ord2 Eos ABS# 0.2 K/ul 10/17/2016 Cbc With Differential Ord2 Baso ABS# 0.0 K/ul 10/17/2016 Comp Metabolic Vhk069 NA 141 mEq/L 10/17/2016 Comp Metabolic Yrr182 K 3.9 mEq/L 10/17/2016 Comp Metabolic Egs952 CL 105 mEq/L 10/17/2016 Comp Metabolic Ryg892 CO2 26.0 mEq/L 10/17/2016 Comp Metabolic Wkq289 AN ION GAP 14 10/17/2016 Comp Metabolic Kvf798 GL UCOSE 100 mg/dL 10/17/2016 Comp Metabolic Jgi105 Cr eat 1.0 mg/dL 10/17/2016 Comp Metabolic Qtq356 eG FR 61 ml/min/1.73m2 10/17 Comp Metabolic Kmc306 BUN 17 mg/dL 10/17/2016 Comp Metabolic Fyf931 B/ C Ratio 17.7 Ratio 10/17/2016 Comp Metabolic Fvs019 CA LCIUM 9.8 mg/dL 10/17/2016 Comp Metabolic Dmg069 AL K PHOS 44 U/L 10/17/2016 Comp Metabolic Ohn756 T(SGOT) 15 U/L 10/17/2016 Comp Metabolic Gpa007 AL T(SGPT) 16 U/L 10/17/2016 Comp Metabolic Mol515 BI LI T 0.5 mg/dL 10/17/2016 Comp Metabolic Eph155 AL BUMIN 4.3 g/dL 10/17/2016 Comp Metabolic Qsw543 TP RO 6.5 g/dL 10/17/2016 Comp Metabolic Vio860 GL OB 2.3 g/dL 10/17/2016 Comp Metabolic Sws578 A/ G Ratio 1.9 Ratio 10/17/2016 Comp Metabolic Puz607 Os mo 283 mOsmo 10/17/2016 Lipid Ord30 CHOL 134 mg/dL 10/17/2016 Lipid Ord30 HDL 48.0 mg/dl 10/17/2016 Lipid Ord30 TRIG 123 mg/dL 10/17/2016 Lipid Ord30 LDL 61 mg/dL 10/17/2016 Lipid Ord30 C/HDL 2.8 Ratio 10/17/2016 Comp Metabolic Nke756 NA 140 mEq/L 02/28/2016 Comp Metabolic Ocm790 K 3.9 mEq/L 02/28/2016 Comp Metabolic Lzl484 CL 102 mEq/L 02/28/2016 Comp Metabolic Hqh463 CO2 31.0 mEq/L 02/28/2016 Comp Metabolic Bne699 AN ION GAP 11 02/28/2016 Comp Metabolic Iyk667 GL UCOSE 87 mg/dL 02/28/2016 Comp Metabolic Wta415 Cr eat 1.2 mg/dL 02/28/2016 Comp Metabolic Hkd064 eG FR 45 ml/min/1.73m2 02/27 Comp Metabolic Iho579 BUN 23 mg/dL 02/28/2016 Comp Metabolic All663 B/ C Ratio 18.5 Ratio 02/28/2016 Comp Metabolic Mgu280 CA LCIUM 9.2 mg/dL 02/28/2016 Comp Metabolic Oxq574 AL K PHOS 53 U/L 02/28/2016 Comp Metabolic Axh554 T(SGOT) 16 U/L 02/28/2016 Comp Metabolic Pjk693 AL T(SGPT) 17 U/L 02/28/2016 Comp Metabolic Vzd371 BI LI T 0.5 mg/dL 02/28/2016 Comp Metabolic Aij079 AL BUMIN 4.2 g/dL 02/28/2016 Comp Metabolic Qdy113 TP RO 6.7 g/dL 02/28/2016 Comp Metabolic Jur626 GL OB 2.5 g/dL 02/28/2016 Comp Metabolic Sem437 A/ G Ratio 1.7 Ratio 02/28/2016 Comp Metabolic Sck165 Os mo 282 mOsmo 02/28/2016 Cbc With Differential Ord2 WBC 5.16 K/ul 02/28/2016 Cbc With Differential Ord2 RBC 3.74 M/ul 02/28/2016 Cbc With Differential Ord2 HGB 11.4 g/dl 02/28/2016 Cbc With Differential Ord2 HCT 33.9 % 02/28/2016 Cbc With Differential Ord2 Neut% 66.7 % 02/28/2016 Cbc With Differential Ord2 MCV 90.6 fl 02/28/2016 Cbc With Differential Ord2 Lymph% 23.4 % 02/28/2016 Cbc With Differential Ord2 MCH 30.5 pg 02/28/2016 Cbc With Differential Ord2 [place]% 5.6 % 02/28/2016 Cbc With Differential Ord2 MCHC 33.6 pg 02/28/2016 Cbc With Differential Ord2 Eos% 3.9 % 02/28/2016 Cbc With Differential Ord2 PLT 214 K/ul 02/28/2016 Cbc With Differential Ord2 Baso% 0.4 % 02/28/2016 Cbc With Differential Ord2 RDW 13.8 % 02/28/2016 Cbc With Differential Ord2 Neut ABS# 3.44 K/ul 02/28/2016 Cbc With Differential Ord2 Lymph ABS# 1.21 K/ul 02/28/2016 Cbc With Differential Ord2 [place] ABS# 0.3 K/ul 02/28/2016 Cbc With Differential Ord2 Eos ABS# 0.2 K/ul 02/28/2016 Cbc With Differential Ord2 Baso ABS# 0.0 K/ul 02/28/2016 Lipid Ord30 CHOL 141 mg/dL 02/28/2016 Lipid Ord30 HDL 48.0 mg/dl 02/28/2016 Lipid Ord30 TRIG 144 mg/dL 02/28/2016 Lipid Ord30 LDL 64 mg/dL 02/28/2016 Lipid Ord30 C/HDL 2.9 Ratio 02/28/2016 Tsh Ord6 hTSH II 2.22 uIU/mL 02/28/2016 Culture Urine [id number] URI NE CULTURE SEE NOTES 11/15/2015 Urine Culture Ucult Comp lete Growth of aerobe sent to ref lab 11/14/2015 Tibc Ord40 Iron 81 ug/dl 06/05/2015 Tibc Ord40 UIBC 306 ug/dL 06/05/2015 Tibc Ord40 TIBC 387 ug/dL 06/05/2015 Tibc Ord40 Fe-%Sat 20.9 % 06/05/2015 Lipid Ord30 CHOL 145 mg/dL 03/19/2015 Lipid Ord30 HDL 54.0 mg/dl 03/19/2015 Lipid Ord30 TRIG 92 mg/dL 03/19/2015 Lipid Ord30 LDL 73 mg/dL 03/19/2015 Lipid Ord30 C/HDL 2.7 Ratio 03/19/2015 Comp Metabolic Jvr905 NA 139 mEq/L 03/19/2015 Comp Metabolic Mty688 K 4.0 mEq/L 03/19/2015 Comp Metabolic Cel500 CL 105 mEq/L 03/19/2015 Comp Metabolic Eqv169 CO2 29.0 mEq/L 03/19/2015 Comp Metabolic Iva575 AN ION GAP 9 03/19/2015 Comp Metabolic Hwi195 GL UCOSE 90 mg/dL 03/19/2015 Comp Metabolic Uuq263 Cr eat 0.8 mg/dL 03/19/2015 Comp Metabolic Wwb721 eG FR 80 ml/min/1.73m2 03/19 Comp Metabolic Qjp091 BUN 14 mg/dL 03/19/2015 Comp Metabolic Pas624 B/ C Ratio 18.4 Ratio 03/19/2015 Comp Metabolic Myy909 CA LCIUM 9.5 mg/dL 03/19/2015 Comp Metabolic Ttd339 AL K PHOS 39 U/L 03/19/2015 Comp Metabolic Adk410 T(SGOT) 17 U/L 03/19/2015 Comp Metabolic Ebl333 AL T(SGPT) 22 U/L 03/19/2015 Comp Metabolic Uja231 BI LI T 0.5 mg/dL 03/19/2015 Comp Metabolic Fhn737 AL BUMIN 4.2 g/dL 03/19/2015 Comp Metabolic Jql570 TP RO 6.3 g/dL 03/19/2015 Comp Metabolic Cup773 GL OB 2.1 g/dL 03/19/2015 Comp Metabolic Uhi558 A/ G Ratio 2.0 Ratio 03/19/2015 Comp Metabolic Eym743 Os mo 278 mOsmo 03/19/2015 Tsh Ord6 hTSH II 1.44 uIU/mL 03/19/2015 Cbc With Differential Ord2 WBC 4.54 K/ul 03/19/2015 Cbc With Differential Ord2 RBC 4.22 M/ul 03/19/2015 Cbc With Differential Ord2 HGB 12.6 g/dl 03/19/2015 Cbc With Differential Ord2 HCT 37.7 % 03/19/2015 Cbc With Differential Ord2 Neut% 58.4 % 03/19/2015 Cbc With Differential Ord2 MCV 89.3 fl 03/19/2015 Cbc With Differential Ord2 Lymph% 33.5 % 03/19/2015 Cbc With Differential Ord2 MCH 29.9 pg 03/19/2015 Cbc With Differential Ord2 [place]% 5.1 % 03/19/2015 Cbc With Differential Ord2 MCHC 33.4 pg 03/19/2015 Cbc With Differential Ord2 Eos% 2.6 % 03/19/2015 Cbc With Differential Ord2 PLT 219 K/ul 03/19/2015 Cbc With Differential Ord2 Baso% 0.4 % 03/19/2015 Cbc With Differential Ord2 Neut ABS# 2.65 K/ul 03/19/2015 Cbc With Differential Ord2 RDW 13.9 % 03/19/2015 Cbc With Differential Ord2 Lymph ABS# 1.52 K/ul 03/19/2015 Cbc With Differential Ord2 [place] ABS# 0.2 K/ul 03/19/2015 Cbc With Differential Ord2 Eos ABS# 0.1 K/ul 03/19/2015 Cbc With Differential Ord2 Baso ABS# 0.0 K/ul 03/19/2015 Cbc With Differential Ord2 New Analyzer Notice Please note new ref ranges s tarting 02-28-2015 due to implemntation of new five part differential hematolgy analyzer. 03/19/2015 Lipid Ord30 CHOL 165 mg/dL 09/29/2014 Lipid Ord30 HDL 52.0 mg/dl 09/29/2014 Lipid Ord30 TRIG 128 mg/dL 09/29/2014 Lipid Ord30 LDL 87 mg/dL 09/29/2014 Lipid Ord30 C/HDL 3.2 Ratio 09/29/2014 Comp Metabolic Zaw893 NA 139 mEq/L 09/29/2014 Comp Metabolic Pby241 K 4.1 mEq/L 09/29/2014 Comp Metabolic Iub808 CL 104 mEq/L 09/29/2014 Comp Metabolic Nah798 CO2 31.0 mEq/L 09/29/2014 Comp Metabolic Zzo689 AN ION GAP 8 09/29/2014 Comp Metabolic Gdo033 GL UCOSE 96 mg/dL 09/29/2014 Comp Metabolic Yms291 Cr eat 0.8 mg/dL 09/29/2014 Comp Metabolic Xah046 eG FR 71 ml/min/1.73m2 09/29 Comp Metabolic Asw256 BUN 13 mg/dL 09/29/2014 Comp Metabolic Uvs958 B/ C Ratio 15.5 Ratio 09/29/2014 Comp Metabolic Qbn247 CA LCIUM 9.5 mg/dL 09/29/2014 Comp Metabolic Hbp810 AL K PHOS 42 U/L 09/29/2014 Comp Metabolic Wsa187 T(SGOT) 20 U/L 09/29/2014 Comp Metabolic Ayc209 AL T(SGPT) 26 U/L 09/29/2014 Comp Metabolic Iko699 BI LI T 0.5 mg/dL 09/29/2014 Comp Metabolic Ijw688 AL BUMIN 4.4 g/dL 09/29/2014 Comp Metabolic Ahp125 TP RO 6.5 g/dL 09/29/2014 Comp Metabolic Tcv965 GL OB 2.1 g/dL 09/29/2014 Comp Metabolic Ubu192 A/ G Ratio 2.1 Ratio 09/29/2014 Comp Metabolic Ejv157 Os mo 278 mOsmo 09/29/2014 Tsh Ord6 hTSH II 2.92 uIU/mL 09/29/2014 Cbc With Differential Ord2 WBC 4.9 K/uL 09/29/2014 Cbc With Differential Ord2 LYM 1.8 K/uL 09/29/2014 Cbc With Differential Ord2 LYM% 35.9 % 09/29/2014 Cbc With Differential Ord2 NEUT/GRAN 2.9 K/uL 09/29/2014 Cbc With Differential Ord2 NEUT/GRAN % 59.2 % 09/29/2014 Cbc With Differential Ord2 MID 0.2 K/uL 09/29/2014 Cbc With Differential Ord2 MID% 4.9 % 09/29/2014 Cbc With Differential Ord2 RBC 4.30 M/uL 09/29/2014 Cbc With Differential Ord2 HGB 12.7 g/dL 09/29/2014 Cbc With Differential Ord2 HCT 38.5 % 09/29/2014 Cbc With Differential Ord2 MCV 90 fL 09/29/2014 Cbc With Differential Ord2 MCH 30 pg 09/29/2014 Cbc With Differential Ord2 MCHC 33 g/dL 09/29/2014 Cbc With Differential Ord2 PLT 201 K/uL 09/29/2014 Cbc With Differential Ord2 RDW 13.4 % 09/29/2014 Review of Systems System Result Effective Dates Constitutional No recent illness 11/01/2018 Constitutional No anorexia 11/01/2018 Constitutional No night sweats 11/01/2018 Constitutional No chills 11/01/2018 Constitutional No diaphoresis 11/01/2018 Constitutional No fatigue 11/01/2018 Constitutional No fever 11/01/2018 Constitutional No insomnia 11/01/2018 Constitutional No malaise 11/01/2018 Constitutional No weight loss 11/01/2018 Constitutional No weight gain 11/01/2018 Dermatologic cyst 2018 Constitutional No recent illness 09/06/2018 Constitutional No chills 09/06/2018 Constitutional No diaphoresis 09/06/2018 Constitutional fatigue 0 09/06/2018 Constitutional No fever 09/06/2018 Constitutional No malaise 09/06/2018 Eyes No blindness 2018 Eyes No vision change Ears/Nose/Throat/Neck No dysphagia 09/06/2018 Ears/Nose/Throat/Neck No nasal allergies 09/06/2018 Ears/Nose/Throat/Neck No nasal discharge 09/06/2018 Ears/Nose/Throat/Neck No sore throat 09/06/2018 Ears/Nose/Throat/Neck No postnasal drip 09/06/2018 Ears/Nose/Throat/Neck No sinus congestion 09/06/2018 Cardiovascular No chest pain/pressure 09/06/2018 Cardiovascular No dyspnea 09/06/2018 Cardiovascular No edema 09/06/2018 Cardiovascular No fatigue 09/06/2018 Respiratory No chest congestion 09/06/2018 Respiratory No cough Respiratory No dyspnea 0 09/06/2018 Gastrointestinal No abdominal pain 09/06/2018 Gastrointestinal No constipation 09/06/2018 Gastrointestinal No diarrhea 09/06/2018 Gastrointestinal No gastroesophageal reflu x 09/06/2018 Gastrointestinal No nausea 09/06/2018 Gastrointestinal No vomiting 09/06/2018 Genitourinary/Nephrology No dysuria 09/06/2018 Musculoskeletal back pain 09/06/2018 Musculoskeletal No joint complaint 09/06/2018 Dermatologic No rash Dermatologic No sores Dermatologic No scar Neurologic No alteration of consciousness 09/06/2018 Neurologic No mental status change 09/06/2018 Psychiatric No anxiety 0 09/06/2018 Psychiatric No depression 09/06/2018 Constitutional recent illness 07/08/2018 Constitutional chills Constitutional No diaphoresis 07/08/2018 Constitutional fever Eyes No eye erythema Ears/Nose/Throat/Neck nasal allergies 07/08/2018 Ears/Nose/Throat/Neck nasal discharge 07/08/2018 Ears/Nose/Throat/Neck postnasal drip 07/08/2018 Ears/Nose/Throat/Neck sinus congestion 07/08/2018 Ears/Nose/Throat/Neck sore throat 07/08/2018 Cardiovascular No chest pain/pressure 07/08/2018 Cardiovascular No dyspnea 07/08/2018 Respiratory No chest congestion 07/08/2018 Respiratory cough 2018 Respiratory No dyspnea 0 07/08/2018 Gastrointestinal No constipation 07/08/2018 Gastrointestinal No diarrhea 07/08/2018 Gastrointestinal No nausea 07/08/2018 Gastrointestinal No vomiting 07/08/2018 Dermatologic No rash Neurologic No alteration of consciousness 07/08/2018 Neurologic No mental status change 07/08/2018 Constitutional No recent illness 02/11/2018 Constitutional No chills 02/11/2018 Constitutional No diaphoresis 02/11/2018 Constitutional fatigue 1 04/14/2017 Constitutional No fever 02/11/2018 Constitutional No malaise 02/11/2018 Eyes No blindness 2017 Eyes No vision change Ears/Nose/Throat/Neck No dysphagia 02/11/2018 Ears/Nose/Throat/Neck No nasal allergies 02/11/2018 Ears/Nose/Throat/Neck No nasal discharge 02/11/2018 Ears/Nose/Throat/Neck No sore throat 02/11/2018 Ears/Nose/Throat/Neck No postnasal drip 02/11/2018 Ears/Nose/Throat/Neck No sinus congestion 02/11/2018 Cardiovascular No chest pain/pressure 02/11/2018 Cardiovascular No dyspnea 02/11/2018 Cardiovascular No edema 02/11/2018 Cardiovascular No fatigue 02/11/2018 Respiratory No chest congestion 02/11/2018 Respiratory No cough Respiratory No dyspnea 1 04/14/2017 Gastrointestinal No abdominal pain 02/11/2018 Gastrointestinal No constipation 02/11/2018 Gastrointestinal No diarrhea 02/11/2018 Gastrointestinal No gastroesophageal reflu x 02/11/2018 Gastrointestinal No nausea 02/11/2018 Gastrointestinal No vomiting 02/11/2018 Genitourinary/Nephrology No dysuria 02/11/2018 Musculoskeletal back pain 02/11/2018 Musculoskeletal No joint complaint 02/11/2018 Dermatologic No rash Dermatologic No sores Dermatologic No scar Neurologic No alteration of consciousness 02/11/2018 Neurologic No mental status change 02/11/2018 Psychiatric No anxiety 1 04/14/2017 Psychiatric No depression 02/11/2018 Dermatologic sores 10/23 Constitutional No recent illness 10/23/2017 Constitutional No chills 10/23/2017 Constitutional No diaphoresis 10/23/2017 Constitutional No fever 10/23/2017 Eyes No eye erythema 08/2017 Ears/Nose/Throat/Neck No nasal discharge 10/23/2017 Cardiovascular No chest pain/pressure 10/23/2017 Respiratory No cough 08/2017 Musculoskeletal No joint complaint 10/23/2017 Dermatologic ecchymosis 10/23/2017 Neurologic No alteration of consciousness 10/23/2017 Neurologic No mental status change 10/23/2017 Constitutional No recent illness 08/13/2017 Constitutional No chills 08/13/2017 Constitutional No diaphoresis 08/13/2017 Constitutional fatigue 0 08/13/2017 Constitutional No fever 08/13/2017 Constitutional No malaise 08/13/2017 Eyes No blindness 2017 Eyes No vision change Ears/Nose/Throat/Neck No dysphagia 08/13/2017 Ears/Nose/Throat/Neck No nasal allergies 08/13/2017 Ears/Nose/Throat/Neck No nasal discharge 08/13/2017 Ears/Nose/Throat/Neck No sore throat 08/13/2017 Ears/Nose/Throat/Neck No postnasal drip 08/13/2017 Ears/Nose/Throat/Neck No sinus congestion 08/13/2017 Cardiovascular No chest pain/pressure 08/13/2017 Cardiovascular No dyspnea 08/13/2017 Cardiovascular No edema 08/13/2017 Cardiovascular No fatigue 08/13/2017 Respiratory No chest congestion 08/13/2017 Respiratory No cough Respiratory No dyspnea 0 08/13/2017 Gastrointestinal No abdominal pain 08/13/2017 Gastrointestinal No constipation 08/13/2017 Gastrointestinal No diarrhea 08/13/2017 Gastrointestinal No gastroesophageal reflu x 08/13/2017 Gastrointestinal No nausea 08/13/2017 Gastrointestinal No vomiting 08/13/2017 Genitourinary/Nephrology No dysuria 08/13/2017 Musculoskeletal back pain 08/13/2017 Musculoskeletal No joint complaint 08/13/2017 Dermatologic No rash Dermatologic No sores Dermatologic No scar Neurologic No alteration of consciousness 08/13/2017 Neurologic No mental status change 08/13/2017 Psychiatric No anxiety 0 08/13/2017 Psychiatric No depression 08/13/2017 Constitutional No recent illness 07/16/2017 Constitutional No anorexia 07/16/2017 Constitutional No night sweats 07/16/2017 Constitutional No chills 07/16/2017 Constitutional No diaphoresis 07/16/2017 Constitutional No fatigue 07/16/2017 Constitutional No fever 07/16/2017 Constitutional No insomnia 07/16/2017 Constitutional No malaise 07/16/2017 Constitutional No weight loss 07/16/2017 Constitutional No weight gain 07/16/2017 Dermatologic sores 07/16 Constitutional No recent illness 06/29/2017 Constitutional No anorexia 06/29/2017 Constitutional No night sweats 06/29/2017 Constitutional No chills 06/29/2017 Constitutional No diaphoresis 06/29/2017 Constitutional No fatigue 06/29/2017 Constitutional No fever 06/29/2017 Constitutional No insomnia 06/29/2017 Constitutional No malaise 06/29/2017 Constitutional No weight loss 06/29/2017 Constitutional No weight gain 06/29/2017 Dermatologic sores 06/29 Constitutional recent illness 05/01/2017 Constitutional No anorexia 05/01/2017 Constitutional No night sweats 05/01/2017 Constitutional No chills 05/01/2017 Constitutional No diaphoresis 05/01/2017 Constitutional No fatigue 05/01/2017 Constitutional No fever 05/01/2017 Constitutional No insomnia 05/01/2017 Constitutional No malaise 05/01/2017 Constitutional No weight loss 05/01/2017 Constitutional No weight gain 05/01/2017 Eyes No eye erythema Eyes No eye discharge Ears/Nose/Throat/Neck nasal allergies 05/01/2017 Ears/Nose/Throat/Neck nasal discharge 05/01/2017 Ears/Nose/Throat/Neck No sinus congestion 05/01/2017 Ears/Nose/Throat/Neck No sore throat 05/01/2017 Cardiovascular No chest pain/pressure 05/01/2017 Cardiovascular No dyspnea 05/01/2017 Cardiovascular No edema 05/01/2017 Respiratory No productive sputum 05/01/2017 Respiratory chest congestion 05/01/2017 Respiratory cough 2017 Gastrointestinal No abdominal pain 05/01/2017 Gastrointestinal No constipation 05/01/2017 Gastrointestinal No diarrhea 05/01/2017 Genitourinary/Nephrology No dysuria 05/01/2017 Musculoskeletal No joint complaint 05/01/2017 Dermatologic No rash Dermatologic No sores Neurologic No alteration of consciousness 05/01/2017 Constitutional recent illness 04/24/2017 Constitutional No chills 04/24/2017 Constitutional No diaphoresis 04/24/2017 Constitutional No fever 04/24/2017 Eyes No eye erythema 10/2017 Ears/Nose/Throat/Neck nasal allergies 04/24/2017 Ears/Nose/Throat/Neck nasal discharge 04/24/2017 Ears/Nose/Throat/Neck postnasal drip 04/24/2017 Ears/Nose/Throat/Neck No sore throat 04/24/2017 Cardiovascular No chest pain/pressure 04/24/2017 Cardiovascular No dyspnea 04/24/2017 Respiratory chest congestion 04/24/2017 Respiratory cough 2017 Respiratory No dyspnea 0 04/24/2017 Gastrointestinal No abdominal pain 04/24/2017 Gastrointestinal No constipation 04/24/2017 Gastrointestinal No diarrhea 04/24/2017 Gastrointestinal No nausea 04/24/2017 Gastrointestinal No vomiting 04/24/2017 Dermatologic No rash 10/2017 Neurologic No alteration of consciousness 04/24/2017 Neurologic No mental status change 04/24/2017 Respiratory productive sputum 04/24/2017 Constitutional No recent illness 03/11/2017 Constitutional No chills 03/11/2017 Constitutional No diaphoresis 03/11/2017 Constitutional No fever 03/11/2017 Eyes No eye erythema Ears/Nose/Throat/Neck No nasal discharge 03/11/2017 Cardiovascular No chest pain/pressure 03/11/2017 Cardiovascular No dyspnea 03/11/2017 Respiratory No cough Respiratory No chest congestion 03/11/2017 Dermatologic rash 2017 Neurologic No alteration of consciousness 03/11/2017 Neurologic No mental status change 03/11/2017 Constitutional No recent illness 02/19/2017 Constitutional No chills 02/19/2017 Constitutional No diaphoresis 02/19/2017 Constitutional fatigue 0 02/19/2017 Constitutional No fever 02/19/2017 Constitutional No malaise 02/19/2017 Eyes No blindness 2017 Eyes No vision change Ears/Nose/Throat/Neck No dysphagia 02/19/2017 Ears/Nose/Throat/Neck No nasal allergies 02/19/2017 Ears/Nose/Throat/Neck No nasal discharge 02/19/2017 Ears/Nose/Throat/Neck No sore throat 02/19/2017 Ears/Nose/Throat/Neck No postnasal drip 02/19/2017 Ears/Nose/Throat/Neck No sinus congestion 02/19/2017 Cardiovascular No chest pain/pressure 02/19/2017 Cardiovascular No dyspnea 02/19/2017 Cardiovascular No edema 02/19/2017 Cardiovascular No fatigue 02/19/2017 Respiratory No chest congestion 02/19/2017 Respiratory No cough 05/2017 Respiratory No dyspnea 0 02/19/2017 Gastrointestinal No abdominal pain 02/19/2017 Gastrointestinal No constipation 02/19/2017 Gastrointestinal No diarrhea 02/19/2017 Gastrointestinal No gastroesophageal reflu x 02/19/2017 Gastrointestinal No nausea 02/19/2017 Gastrointestinal No vomiting 02/19/2017 Genitourinary/Nephrology No dysuria 02/19/2017 Musculoskeletal No joint complaint 02/19/2017 Dermatologic No rash 05/2017 Dermatologic No sores Dermatologic No scar 05/2017 Neurologic No alteration of consciousness 02/19/2017 Neurologic No mental status change 02/19/2017 Psychiatric No anxiety 0 02/19/2017 Psychiatric No depression 02/19/2017 Musculoskeletal back pain 02/19/2017 Constitutional No recent illness 10/16/2016 Constitutional No chills 10/16/2016 Constitutional No diaphoresis 10/16/2016 Constitutional fatigue 0 10/16/2016 Constitutional No fever 10/16/2016 Constitutional No malaise 10/16/2016 Eyes No blindness 2016 Eyes No vision change Ears/Nose/Throat/Neck No dysphagia 10/16/2016 Ears/Nose/Throat/Neck No nasal allergies 10/16/2016 Ears/Nose/Throat/Neck No nasal discharge 10/16/2016 Ears/Nose/Throat/Neck No sore throat 10/16/2016 Ears/Nose/Throat/Neck No postnasal drip 10/16/2016 Ears/Nose/Throat/Neck No sinus congestion 10/16/2016 Cardiovascular No chest pain/pressure 10/16/2016 Cardiovascular No dyspnea 10/16/2016 Cardiovascular No edema 10/16/2016 Cardiovascular No fatigue 10/16/2016 Respiratory No chest congestion 10/16/2016 Respiratory No cough Respiratory No dyspnea 0 10/16/2016 Gastrointestinal No abdominal pain 10/16/2016 Gastrointestinal No constipation 10/16/2016 Gastrointestinal No diarrhea 10/16/2016 Gastrointestinal No gastroesophageal reflu x 10/16/2016 Gastrointestinal No nausea 10/16/2016 Gastrointestinal No vomiting 10/16/2016 Genitourinary/Nephrology No dysuria 10/16/2016 Musculoskeletal back pain 10/16/2016 Musculoskeletal No joint complaint 10/16/2016 Dermatologic No rash Dermatologic No sores Dermatologic No scar Neurologic No alteration of consciousness 10/16/2016 Neurologic No mental status change 10/16/2016 Psychiatric No anxiety 0 10/16/2016 Psychiatric No depression 10/16/2016 Constitutional No recent illness 06/19/2016 Constitutional No chills 06/19/2016 Constitutional No diaphoresis 06/19/2016 Constitutional fatigue 0 06/19/2016 Constitutional No fever 06/19/2016 Constitutional No malaise 06/19/2016 Eyes No blindness 2016 Eyes No vision change Ears/Nose/Throat/Neck No dysphagia 06/19/2016 Ears/Nose/Throat/Neck No nasal allergies 06/19/2016 Ears/Nose/Throat/Neck No nasal discharge 06/19/2016 Ears/Nose/Throat/Neck No postnasal drip 06/19/2016 Ears/Nose/Throat/Neck No sinus congestion 06/19/2016 Ears/Nose/Throat/Neck No sore throat 06/19/2016 Cardiovascular No chest pain/pressure 06/19/2016 Cardiovascular No dyspnea 06/19/2016 Cardiovascular No edema 06/19/2016 Cardiovascular No fatigue 06/19/2016 Respiratory No chest congestion 06/19/2016 Respiratory No cough 05/2016 Respiratory No dyspnea 0 06/19/2016 Gastrointestinal No abdominal pain 06/19/2016 Gastrointestinal No constipation 06/19/2016 Gastrointestinal No diarrhea 06/19/2016 Gastrointestinal No gastroesophageal reflu x 06/19/2016 Gastrointestinal No nausea 06/19/2016 Gastrointestinal No vomiting 06/19/2016 Genitourinary/Nephrology No dysuria 06/19/2016 Musculoskeletal No joint complaint 06/19/2016 Dermatologic No rash 05/2016 Dermatologic No sores Dermatologic No scar 05/2016 Neurologic No alteration of consciousness 06/19/2016 Neurologic No mental status change 06/19/2016 Psychiatric No anxiety 0 06/19/2016 Psychiatric No depression 06/19/2016 Musculoskeletal back pain 06/19/2016 Constitutional No recent illness 03/13/2016 Constitutional No anorexia 03/13/2016 Constitutional No night sweats 03/13/2016 Constitutional No chills 03/13/2016 Constitutional No diaphoresis 03/13/2016 Constitutional No fatigue 03/13/2016 Constitutional No fever 03/13/2016 Constitutional No malaise 03/13/2016 Constitutional No weight gain 03/13/2016 Constitutional No weight loss 03/13/2016 Constitutional No insomnia 03/13/2016 Musculoskeletal joint complaint 03/13/2016 Constitutional No recent illness 02/22/2016 Constitutional No chills 02/22/2016 Constitutional No fatigue 02/22/2016 Constitutional No fever 02/22/2016 Constitutional insomnia 02/22/2016 Constitutional No malaise 02/22/2016 Eyes No blindness 2016 Eyes No vision change Ears/Nose/Throat/Neck No dental pain 02/22/2016 Ears/Nose/Throat/Neck No dizziness 02/22/2016 Ears/Nose/Throat/Neck No dysphagia 02/22/2016 Ears/Nose/Throat/Neck No headache 02/22/2016 Ears/Nose/Throat/Neck No hearing loss 02/22/2016 Ears/Nose/Throat/Neck No nasal allergies 02/22/2016 Ears/Nose/Throat/Neck No sore throat 02/22/2016 Ears/Nose/Throat/Neck No postnasal drip 02/22/2016 Ears/Nose/Throat/Neck No sinus congestion 02/22/2016 Cardiovascular No chest pain/pressure 02/22/2016 Cardiovascular No dyspnea 02/22/2016 Cardiovascular No edema 02/22/2016 Cardiovascular No exercise intolerance 02/22/2016 Cardiovascular No fatigue 02/22/2016 Cardiovascular No near-syncope/dizziness 02/22/2016 Respiratory No chest tightness 02/22/2016 Respiratory No cough 07/2016 Respiratory No dyspnea 0 02/22/2016 Respiratory No pedal edema 02/22/2016 Gastrointestinal No abdominal pain 02/22/2016 Gastrointestinal No constipation 02/22/2016 Gastrointestinal No diarrhea 02/22/2016 Gastrointestinal No gastroesophageal reflu x 02/22/2016 Gastrointestinal No nausea 02/22/2016 Gastrointestinal No vomiting 02/22/2016 Genitourinary/Nephrology No dysuria 02/22/2016 Genitourinary/Nephrology No nocturia 02/22/2016 Genitourinary/Nephrology No urinary incontinence 02/22/2016 Musculoskeletal No stiffness 02/22/2016 Musculoskeletal No swelling 02/22/2016 Musculoskeletal No muscle weakness 02/22/2016 Musculoskeletal No myalgias 02/22/2016 Dermatologic No rash 07/2016 Dermatologic No sores Dermatologic No scar 07/2016 Neurologic No dizziness 02/22/2016 Neurologic No headache 0 02/22/2016 Neurologic No neck pain 02/22/2016 Neurologic No syncope Psychiatric No anxiety 0 02/22/2016 Psychiatric No depression 02/22/2016 Musculoskeletal joint complaint 02/22/2016 Constitutional recent illness 12/18/2015 Constitutional No chills 12/18/2015 Constitutional No fatigue 12/18/2015 Constitutional No fever 12/18/2015 Constitutional No insomnia 12/18/2015 Constitutional No malaise 12/18/2015 Eyes No blindness 2015 Eyes No vision change Ears/Nose/Throat/Neck No dental pain 12/18/2015 Ears/Nose/Throat/Neck No dizziness 12/18/2015 Ears/Nose/Throat/Neck No dysphagia 12/18/2015 Ears/Nose/Throat/Neck No headache 12/18/2015 Ears/Nose/Throat/Neck No hearing loss 12/18/2015 Ears/Nose/Throat/Neck No nasal allergies 12/18/2015 Ears/Nose/Throat/Neck No sore throat 12/18/2015 Ears/Nose/Throat/Neck No postnasal drip 12/18/2015 Ears/Nose/Throat/Neck No sinus congestion 12/18/2015 Cardiovascular No chest pain/pressure 12/18/2015 Cardiovascular No dyspnea 12/18/2015 Cardiovascular No edema 12/18/2015 Cardiovascular No exercise intolerance 12/18/2015 Cardiovascular No fatigue 12/18/2015 Cardiovascular No near-syncope/dizziness 12/18/2015 Respiratory No chest tightness 12/18/2015 Respiratory No cough 02/2015 Respiratory No dyspnea 1 02/16/2015 Respiratory No pedal edema 12/18/2015 Gastrointestinal No abdominal pain 12/18/2015 Gastrointestinal No constipation 12/18/2015 Gastrointestinal No diarrhea 12/18/2015 Gastrointestinal No gastroesophageal reflu x 12/18/2015 Gastrointestinal No nausea 12/18/2015 Gastrointestinal No vomiting 12/18/2015 Genitourinary/Nephrology No dysuria 12/18/2015 Genitourinary/Nephrology No nocturia 12/18/2015 Genitourinary/Nephrology No urinary incontinence 12/18/2015 Musculoskeletal stiffness 12/18/2015 Musculoskeletal No swelling 12/18/2015 Musculoskeletal No muscle weakness 12/18/2015 Musculoskeletal No myalgias 12/18/2015 Dermatologic No rash 02/2015 Dermatologic No sores Dermatologic No scar 02/2015 Neurologic No dizziness 12/18/2015 Neurologic No headache 1 02/16/2015 Neurologic No neck pain 12/18/2015 Neurologic No syncope Psychiatric No anxiety 1 02/16/2015 Psychiatric No depression 12/18/2015 Musculoskeletal bone pain 12/18/2015 Constitutional No recent illness 11/13/2015 Constitutional No chills 11/13/2015 Constitutional No fatigue 11/13/2015 Constitutional No fever 11/13/2015 Constitutional No insomnia 11/13/2015 Constitutional No malaise 11/13/2015 Eyes No blindness 2015 Eyes No vision change Ears/Nose/Throat/Neck No dental pain 11/13/2015 Ears/Nose/Throat/Neck No dizziness 11/13/2015 Ears/Nose/Throat/Neck No dysphagia 11/13/2015 Ears/Nose/Throat/Neck No headache 11/13/2015 Ears/Nose/Throat/Neck No hearing loss 11/13/2015 Ears/Nose/Throat/Neck No nasal allergies 11/13/2015 Ears/Nose/Throat/Neck No sore throat 11/13/2015 Ears/Nose/Throat/Neck No postnasal drip 11/13/2015 Ears/Nose/Throat/Neck No sinus congestion 11/13/2015 Cardiovascular No chest pain/pressure 11/13/2015 Cardiovascular No dyspnea 11/13/2015 Cardiovascular No edema 11/13/2015 Cardiovascular No exercise intolerance 11/13/2015 Cardiovascular No fatigue 11/13/2015 Cardiovascular No near-syncope/dizziness 11/13/2015 Respiratory No chest tightness 11/13/2015 Respiratory No cough Respiratory No dyspnea 0 11/13/2015 Respiratory No pedal edema 11/13/2015 Gastrointestinal No abdominal pain 11/13/2015 Gastrointestinal No constipation 11/13/2015 Gastrointestinal No diarrhea 11/13/2015 Gastrointestinal No gastroesophageal reflu x 11/13/2015 Gastrointestinal No nausea 11/13/2015 Gastrointestinal No vomiting 11/13/2015 Genitourinary/Nephrology No dysuria 11/13/2015 Genitourinary/Nephrology No nocturia 11/13/2015 Genitourinary/Nephrology No urinary incontinence 11/13/2015 Musculoskeletal No stiffness 11/13/2015 Musculoskeletal No swelling 11/13/2015 Musculoskeletal No muscle weakness 11/13/2015 Musculoskeletal No myalgias 11/13/2015 Dermatologic No rash Dermatologic No sores Dermatologic No scar Neurologic No dizziness 11/13/2015 Neurologic No headache 0 11/13/2015 Neurologic No neck pain 11/13/2015 Neurologic No syncope Psychiatric No anxiety 0 11/13/2015 Psychiatric No depression 11/13/2015 Constitutional No recent illness 10/10/2015 Constitutional No chills 10/10/2015 Constitutional No fatigue 10/10/2015 Constitutional No fever 10/10/2015 Constitutional No malaise 10/10/2015 Eyes No eye erythema Eyes No vision change Ears/Nose/Throat/Neck No dysphagia 10/10/2015 Ears/Nose/Throat/Neck No nasal allergies 10/10/2015 Ears/Nose/Throat/Neck No sore throat 10/10/2015 Ears/Nose/Throat/Neck No postnasal drip 10/10/2015 Ears/Nose/Throat/Neck No sinus congestion 10/10/2015 Cardiovascular No chest pain/pressure 10/10/2015 Cardiovascular No dyspnea 10/10/2015 Cardiovascular No edema 10/10/2015 Cardiovascular No fatigue 10/10/2015 Respiratory No cough Respiratory No dyspnea 0 10/10/2015 Gastrointestinal No abdominal pain 10/10/2015 Gastrointestinal No constipation 10/10/2015 Gastrointestinal No diarrhea 10/10/2015 Gastrointestinal No gastroesophageal reflu x 10/10/2015 Gastrointestinal No nausea 10/10/2015 Gastrointestinal No vomiting 10/10/2015 Genitourinary/Nephrology No dysuria 10/10/2015 Dermatologic No rash Dermatologic No sores Dermatologic No scar Psychiatric No anxiety 0 10/10/2015 Psychiatric No depression 10/10/2015 Constitutional No diaphoresis 10/10/2015 Ears/Nose/Throat/Neck No nasal discharge 10/10/2015 Respiratory No chest congestion 10/10/2015 Musculoskeletal No joint complaint 10/10/2015 Neurologic No alteration of consciousness 10/10/2015 Neurologic No mental status change 10/10/2015 Constitutional No recent illness 07/10/2015 Constitutional No chills 07/10/2015 Constitutional No fatigue 07/10/2015 Constitutional No fever 07/10/2015 Constitutional No insomnia 07/10/2015 Constitutional No malaise 07/10/2015 Eyes No blindness 2015 Eyes No vision change Ears/Nose/Throat/Neck No dental pain 07/10/2015 Ears/Nose/Throat/Neck No dizziness 07/10/2015 Ears/Nose/Throat/Neck No dysphagia 07/10/2015 Ears/Nose/Throat/Neck No headache 07/10/2015 Ears/Nose/Throat/Neck No hearing loss 07/10/2015 Ears/Nose/Throat/Neck No nasal allergies 07/10/2015 Ears/Nose/Throat/Neck No sore throat 07/10/2015 Ears/Nose/Throat/Neck No postnasal drip 07/10/2015 Ears/Nose/Throat/Neck No sinus congestion 07/10/2015 Cardiovascular No chest pain/pressure 07/10/2015 Cardiovascular No dyspnea 07/10/2015 Cardiovascular No edema 07/10/2015 Cardiovascular No exercise intolerance 07/10/2015 Cardiovascular No fatigue 07/10/2015 Cardiovascular No near-syncope/dizziness 07/10/2015 Respiratory No chest tightness 07/10/2015 Respiratory No cough Respiratory No dyspnea 0 07/10/2015 Respiratory No pedal edema 07/10/2015 Gastrointestinal No abdominal pain 07/10/2015 Gastrointestinal No constipation 07/10/2015 Gastrointestinal No diarrhea 07/10/2015 Gastrointestinal No gastroesophageal reflu x 07/10/2015 Gastrointestinal No nausea 07/10/2015 Gastrointestinal No vomiting 07/10/2015 Genitourinary/Nephrology No dysuria 07/10/2015 Genitourinary/Nephrology No nocturia 07/10/2015 Genitourinary/Nephrology No urinary incontinence 07/10/2015 Musculoskeletal No stiffness 07/10/2015 Musculoskeletal No swelling 07/10/2015 Musculoskeletal No muscle weakness 07/10/2015 Musculoskeletal No myalgias 07/10/2015 Dermatologic No rash Dermatologic No sores Dermatologic No scar Neurologic No dizziness 07/10/2015 Neurologic No headache 0 07/10/2015 Neurologic No neck pain 07/10/2015 Neurologic No syncope Psychiatric No anxiety 0 07/10/2015 Psychiatric No depression 07/10/2015 Constitutional No recent illness 06/05/2015 Constitutional No chills 06/05/2015 Constitutional No fatigue 06/05/2015 Constitutional No fever 06/05/2015 Constitutional No insomnia 06/05/2015 Constitutional No malaise 06/05/2015 Eyes No blindness 2015 Eyes No vision change Ears/Nose/Throat/Neck No dental pain 06/05/2015 Ears/Nose/Throat/Neck No dizziness 06/05/2015 Ears/Nose/Throat/Neck No dysphagia 06/05/2015 Ears/Nose/Throat/Neck No headache 06/05/2015 Ears/Nose/Throat/Neck No hearing loss 06/05/2015 Ears/Nose/Throat/Neck No nasal allergies 06/05/2015 Ears/Nose/Throat/Neck No sore throat 06/05/2015 Ears/Nose/Throat/Neck No postnasal drip 06/05/2015 Ears/Nose/Throat/Neck No sinus congestion 06/05/2015 Cardiovascular No chest pain/pressure 06/05/2015 Cardiovascular No dyspnea 06/05/2015 Cardiovascular No edema 06/05/2015 Cardiovascular No exercise intolerance 06/05/2015 Cardiovascular No fatigue 06/05/2015 Cardiovascular No near-syncope/dizziness 06/05/2015 Respiratory No chest tightness 06/05/2015 Respiratory No cough Respiratory No dyspnea 0 06/05/2015 Respiratory No pedal edema 06/05/2015 Gastrointestinal No abdominal pain 06/05/2015 Gastrointestinal No constipation 06/05/2015 Gastrointestinal No diarrhea 06/05/2015 Gastrointestinal No gastroesophageal reflu x 06/05/2015 Gastrointestinal No nausea 06/05/2015 Gastrointestinal No vomiting 06/05/2015 Genitourinary/Nephrology No dysuria 06/05/2015 Genitourinary/Nephrology No nocturia 06/05/2015 Genitourinary/Nephrology No urinary incontinence 06/05/2015 Musculoskeletal No stiffness 06/05/2015 Musculoskeletal No swelling 06/05/2015 Musculoskeletal No muscle weakness 06/05/2015 Musculoskeletal No myalgias 06/05/2015 Dermatologic No rash Dermatologic No sores Dermatologic No scar Neurologic No dizziness 06/05/2015 Neurologic No headache 0 06/05/2015 Neurologic No neck pain 06/05/2015 Neurologic No syncope Psychiatric No anxiety 0 06/05/2015 Psychiatric No depression 06/05/2015 Constitutional No recent illness 05/01/2015 Constitutional No chills 05/01/2015 Constitutional No fatigue 05/01/2015 Constitutional No fever 05/01/2015 Constitutional No insomnia 05/01/2015 Constitutional No malaise 05/01/2015 Eyes No blindness 2015 Eyes No vision change Ears/Nose/Throat/Neck No dental pain 05/01/2015 Ears/Nose/Throat/Neck No dizziness 05/01/2015 Ears/Nose/Throat/Neck No dysphagia 05/01/2015 Ears/Nose/Throat/Neck No headache 05/01/2015 Ears/Nose/Throat/Neck No hearing loss 05/01/2015 Ears/Nose/Throat/Neck No nasal allergies 05/01/2015 Ears/Nose/Throat/Neck No sore throat 05/01/2015 Ears/Nose/Throat/Neck No postnasal drip 05/01/2015 Ears/Nose/Throat/Neck No sinus congestion 05/01/2015 Cardiovascular No chest pain/pressure 05/01/2015 Cardiovascular No dyspnea 05/01/2015 Cardiovascular No edema 05/01/2015 Cardiovascular No exercise intolerance 05/01/2015 Cardiovascular No fatigue 05/01/2015 Cardiovascular No near-syncope/dizziness 05/01/2015 Respiratory No chest tightness 05/01/2015 Respiratory No cough Respiratory No dyspnea 0 05/01/2015 Respiratory No pedal edema 05/01/2015 Gastrointestinal No abdominal pain 05/01/2015 Gastrointestinal No constipation 05/01/2015 Gastrointestinal No diarrhea 05/01/2015 Gastrointestinal No gastroesophageal reflu x 05/01/2015 Gastrointestinal No nausea 05/01/2015 Gastrointestinal No vomiting 05/01/2015 Genitourinary/Nephrology No dysuria 05/01/2015 Genitourinary/Nephrology No nocturia 05/01/2015 Genitourinary/Nephrology No urinary incontinence 05/01/2015 Musculoskeletal No stiffness 05/01/2015 Musculoskeletal No swelling 05/01/2015 Musculoskeletal No muscle weakness 05/01/2015 Musculoskeletal No myalgias 05/01/2015 Dermatologic No rash Dermatologic No sores Dermatologic No scar Neurologic No dizziness 05/01/2015 Neurologic No headache 0 05/01/2015 Neurologic No neck pain 05/01/2015 Neurologic No syncope Psychiatric No anxiety 0 05/01/2015 Psychiatric No depression 05/01/2015 Constitutional No recent illness 04/09/2015 Constitutional No chills 04/09/2015 Constitutional No fatigue 04/09/2015 Constitutional No fever 04/09/2015 Constitutional No insomnia 04/09/2015 Constitutional No malaise 04/09/2015 Eyes No vision change Ears/Nose/Throat/Neck No headache 04/09/2015 Ears/Nose/Throat/Neck No nasal allergies 04/09/2015 Ears/Nose/Throat/Neck No sore throat 04/09/2015 Ears/Nose/Throat/Neck No postnasal drip 04/09/2015 Ears/Nose/Throat/Neck No sinus congestion 04/09/2015 Cardiovascular No chest pain/pressure 04/09/2015 Cardiovascular No dyspnea 04/09/2015 Cardiovascular No edema 04/09/2015 Respiratory No cough Respiratory No dyspnea 0 04/09/2015 Gastrointestinal No abdominal pain 04/09/2015 Gastrointestinal No constipation 04/09/2015 Gastrointestinal No diarrhea 04/09/2015 Gastrointestinal No gastroesophageal reflu x 04/09/2015 Gastrointestinal No nausea 04/09/2015 Gastrointestinal No vomiting 04/09/2015 Musculoskeletal No stiffness 04/09/2015 Musculoskeletal No swelling 04/09/2015 Musculoskeletal No muscle weakness 04/09/2015 Musculoskeletal No myalgias 04/09/2015 Dermatologic No rash Dermatologic No sores Dermatologic scar 2015 Psychiatric No anxiety 0 04/09/2015 Psychiatric No depression 04/09/2015 Eyes No eye discharge Eyes No eye erythema Respiratory No chest congestion 04/09/2015 Neurologic No alteration of consciousness 04/09/2015 Neurologic No mental status change 04/09/2015 Constitutional No recent illness 03/26/2015 Constitutional No chills 03/26/2015 Constitutional No fatigue 03/26/2015 Constitutional No fever 03/26/2015 Constitutional No insomnia 03/26/2015 Constitutional No malaise 03/26/2015 Eyes No blindness 2015 Eyes No vision change Ears/Nose/Throat/Neck No dental pain 03/26/2015 Ears/Nose/Throat/Neck No dizziness 03/26/2015 Ears/Nose/Throat/Neck No dysphagia 03/26/2015 Ears/Nose/Throat/Neck No headache 03/26/2015 Ears/Nose/Throat/Neck No hearing loss 03/26/2015 Ears/Nose/Throat/Neck No nasal allergies 03/26/2015 Ears/Nose/Throat/Neck No sore throat 03/26/2015 Ears/Nose/Throat/Neck No postnasal drip 03/26/2015 Ears/Nose/Throat/Neck No sinus congestion 03/26/2015 Cardiovascular No chest pain/pressure 03/26/2015 Cardiovascular No dyspnea 03/26/2015 Cardiovascular No edema 03/26/2015 Cardiovascular No exercise intolerance 03/26/2015 Cardiovascular No fatigue 03/26/2015 Cardiovascular No near-syncope/dizziness 03/26/2015 Respiratory No chest tightness 03/26/2015 Respiratory No cough 09/2015 Respiratory No dyspnea 0 03/26/2015 Respiratory No pedal edema 03/26/2015 Gastrointestinal No abdominal pain 03/26/2015 Gastrointestinal No constipation 03/26/2015 Gastrointestinal No diarrhea 03/26/2015 Gastrointestinal No gastroesophageal reflu x 03/26/2015 Gastrointestinal No nausea 03/26/2015 Gastrointestinal No vomiting 03/26/2015 Genitourinary/Nephrology No dysuria 03/26/2015 Genitourinary/Nephrology No nocturia 03/26/2015 Genitourinary/Nephrology No urinary incontinence 03/26/2015 Musculoskeletal No stiffness 03/26/2015 Musculoskeletal No swelling 03/26/2015 Musculoskeletal No muscle weakness 03/26/2015 Musculoskeletal No myalgias 03/26/2015 Dermatologic No rash 09/2015 Dermatologic No sores Dermatologic No scar 09/2015 Neurologic No dizziness 03/26/2015 Neurologic No headache 0 03/26/2015 Neurologic No neck pain 03/26/2015 Neurologic No syncope Psychiatric No anxiety 0 03/26/2015 Psychiatric No depression 03/26/2015 Constitutional No anorexia 11/17/2014 Constitutional No recent illness 11/17/2014 Constitutional No night sweats 11/17/2014 Constitutional No chills 11/17/2014 Constitutional No diaphoresis 11/17/2014 Constitutional No insomnia 11/17/2014 Constitutional No fever 11/17/2014 Constitutional No fatigue 11/17/2014 Constitutional No malaise 11/17/2014 Constitutional No weight loss 11/17/2014 Constitutional No weight gain 11/17/2014 Gastrointestinal abdominal pain 11/17/2014 Gastrointestinal No constipation 11/17/2014 Gastrointestinal No diarrhea 11/17/2014 Gastrointestinal No nausea 11/17/2014 Gastrointestinal No vomiting 11/17/2014 Musculoskeletal No joint complaint 11/17/2014 Constitutional No recent illness 10/31/2014 Constitutional No anorexia 10/31/2014 Constitutional No night sweats 10/31/2014 Constitutional No chills 10/31/2014 Constitutional No diaphoresis 10/31/2014 Constitutional No fatigue 10/31/2014 Constitutional No fever 10/31/2014 Constitutional No insomnia 10/31/2014 Constitutional No malaise 10/31/2014 Constitutional No weight loss 10/31/2014 Constitutional No weight gain 10/31/2014 Constitutional No recent illness 09/28/2014 Constitutional No chills 09/28/2014 Constitutional No fatigue 09/28/2014 Constitutional No fever 09/28/2014 Constitutional No insomnia 09/28/2014 Constitutional No malaise 09/28/2014 Eyes No blindness 2014 Eyes No vision change Ears/Nose/Throat/Neck No dental pain 09/28/2014 Ears/Nose/Throat/Neck No dizziness 09/28/2014 Ears/Nose/Throat/Neck No dysphagia 09/28/2014 Ears/Nose/Throat/Neck No headache 09/28/2014 Ears/Nose/Throat/Neck No hearing loss 09/28/2014 Ears/Nose/Throat/Neck No nasal allergies 09/28/2014 Ears/Nose/Throat/Neck No sore throat 09/28/2014 Ears/Nose/Throat/Neck No postnasal drip 09/28/2014 Ears/Nose/Throat/Neck No sinus congestion 09/28/2014 Cardiovascular No chest pain/pressure 09/28/2014 Cardiovascular No dyspnea 09/28/2014 Cardiovascular No edema 09/28/2014 Cardiovascular No exercise intolerance 09/28/2014 Cardiovascular No fatigue 09/28/2014 Cardiovascular No near-syncope/dizziness 09/28/2014 Respiratory No chest tightness 09/28/2014 Respiratory No cough Respiratory No dyspnea 0 09/28/2014 Respiratory No pedal edema 09/28/2014 Gastrointestinal No abdominal pain 09/28/2014 Gastrointestinal No constipation 09/28/2014 Gastrointestinal No diarrhea 09/28/2014 Gastrointestinal No gastroesophageal reflu x 09/28/2014 Gastrointestinal No nausea 09/28/2014 Gastrointestinal No vomiting 09/28/2014 Genitourinary/Nephrology No dysuria 09/28/2014 Genitourinary/Nephrology No nocturia 09/28/2014 Genitourinary/Nephrology No urinary incontinence 09/28/2014 Musculoskeletal No stiffness 09/28/2014 Musculoskeletal No swelling 09/28/2014 Musculoskeletal No muscle weakness 09/28/2014 Musculoskeletal No myalgias 09/28/2014 Dermatologic No rash Dermatologic No sores Dermatologic No scar Neurologic No dizziness 09/28/2014 Neurologic No headache 0 09/28/2014 Neurologic No neck pain 09/28/2014 Neurologic No syncope Psychiatric No anxiety 0 09/28/2014 Psychiatric No depression 09/28/2014 Constitutional No recent illness 08/31/2014 Constitutional No night sweats 08/31/2014 Constitutional No chills 08/31/2014 Constitutional No fatigue 08/31/2014 Constitutional No fever 08/31/2014 Constitutional No insomnia 08/31/2014 Constitutional No malaise 08/31/2014 Ears/Nose/Throat/Neck No dizziness 08/31/2014 Ears/Nose/Throat/Neck No facial swelling 08/31/2014 Ears/Nose/Throat/Neck No facial weakness 08/31/2014 Ears/Nose/Throat/Neck No headache 08/31/2014 Ears/Nose/Throat/Neck No nasal allergies 08/31/2014 Ears/Nose/Throat/Neck No nasal discharge 08/31/2014 Ears/Nose/Throat/Neck No otalgia 08/31/2014 Ears/Nose/Throat/Neck No sinus congestion 08/31/2014 Ears/Nose/Throat/Neck No snoring 08/31/2014 Ears/Nose/Throat/Neck No sore throat 08/31/2014 Cardiovascular No chest pain/pressure 08/31/2014 Cardiovascular No edema 08/31/2014 Cardiovascular No dyspnea 08/31/2014 Respiratory No chest congestion 08/31/2014 Respiratory No cough Respiratory No cigarette smoking 08/31/2014 Gastrointestinal No abdominal pain 08/31/2014 Gastrointestinal No constipation 08/31/2014 Gastrointestinal No diarrhea 08/31/2014 Genitourinary/Nephrology No dysuria 08/31/2014 Genitourinary/Nephrology No hematuria 08/31/2014 Musculoskeletal No swelling 08/31/2014 Musculoskeletal No back pain 08/31/2014 Dermatologic No rash Dermatologic No sores Constitutional No recent illness 05/29/2014 Constitutional No fatigue 05/29/2014 Cardiovascular No chest pain/pressure 05/29/2014 Cardiovascular No dyspnea 05/29/2014 Respiratory No chest congestion 05/29/2014 Respiratory No cough Gastrointestinal No abdominal pain 05/29/2014 Gastrointestinal No constipation 05/29/2014 Gastrointestinal No diarrhea 05/29/2014 Musculoskeletal joint complaint 05/29/2014 Musculoskeletal No stiffness 05/29/2014 Constitutional No chills 05/29/2014 Constitutional No fever 05/29/2014 Ears/Nose/Throat/Neck No nasal allergies 05/29/2014 Cardiovascular hypertension 05/29/2014 Gastrointestinal No nausea 05/29/2014 Gastrointestinal No vomiting 05/29/2014 Musculoskeletal No swelling 05/29/2014 Dermatologic No mole change 05/29/2014 Dermatologic No rash Dermatologic No sores Neurologic No gait abnormality 05/29/2014 Neurologic No mental status change 05/29/2014 Psychiatric No anxiety 0 05/29/2014 Psychiatric No depression 05/29/2014 Constitutional No chills 11/29/2013 Constitutional No fatigue 11/29/2013 Constitutional No fever 11/29/2013 Ears/Nose/Throat/Neck No nasal allergies 11/29/2013 Gastrointestinal No constipation 11/29/2013 Gastrointestinal No diarrhea 11/29/2013 Gastrointestinal No nausea 11/29/2013 Gastrointestinal No vomiting 11/29/2013 Musculoskeletal No stiffness 11/29/2013 Musculoskeletal No swelling 11/29/2013 Dermatologic No mole change 11/29/2013 Dermatologic No rash Dermatologic No sores Neurologic No gait abnormality 11/29/2013 Neurologic No mental status change 11/29/2013 Psychiatric No anxiety 1 Psychiatric No depression 11/29/2013 Cardiovascular hypertension 11/29/2013 Cardiovascular No dyspnea 11/29/2013 Constitutional No recent illness 10/04/2013 Constitutional No fatigue 10/04/2013 Constitutional No fever 10/04/2013 Dermatologic sores 10/04 Dermatologic No rash Constitutional No chills 05/31/2013 Constitutional No fatigue 05/31/2013 Constitutional No fever 05/31/2013 Ears/Nose/Throat/Neck No nasal allergies 05/31/2013 Gastrointestinal No constipation 05/31/2013 Gastrointestinal No diarrhea 05/31/2013 Gastrointestinal No nausea 05/31/2013 Gastrointestinal No vomiting 05/31/2013 Musculoskeletal No stiffness 05/31/2013 Musculoskeletal No swelling 05/31/2013 Dermatologic No mole change 05/31/2013 Dermatologic No rash Dermatologic No sores Neurologic No gait abnormality 05/31/2013 Neurologic No mental status change 05/31/2013 Psychiatric No anxiety 0 05/31/2013 Psychiatric No depression 05/31/2013 Constitutional No chills 11/30/2012 Constitutional No fatigue 11/30/2012 Constitutional No fever 11/30/2012 Ears/Nose/Throat/Neck No nasal allergies 11/30/2012 Gastrointestinal No constipation 11/30/2012 Gastrointestinal No diarrhea 11/30/2012 Gastrointestinal No nausea 11/30/2012 Gastrointestinal No vomiting 11/30/2012 Musculoskeletal No stiffness 11/30/2012 Musculoskeletal No swelling 11/30/2012 Dermatologic No mole change 11/30/2012 Dermatologic No rash Dermatologic No sores Neurologic No gait abnormality 11/30/2012 Neurologic No mental status change 11/30/2012 Psychiatric No anxiety 1 Psychiatric No depression 11/30/2012 Constitutional No chills 05/31/2012 Constitutional No fatigue 05/31/2012 Constitutional No fever 05/31/2012 Ears/Nose/Throat/Neck No nasal allergies 05/31/2012 Respiratory cough 2012 Gastrointestinal No constipation 05/31/2012 Gastrointestinal No diarrhea 05/31/2012 Gastrointestinal No nausea 05/31/2012 Gastrointestinal No vomiting 05/31/2012 Musculoskeletal No stiffness 05/31/2012 Musculoskeletal No swelling 05/31/2012 Dermatologic No mole change 05/31/2012 Dermatologic No rash Dermatologic No sores Neurologic No gait abnormality 05/31/2012 Neurologic No mental status change 05/31/2012 Constitutional No chills 11/25/2011 Constitutional No fatigue 11/25/2011 Constitutional No fever 11/25/2011 Ears/Nose/Throat/Neck No nasal allergies 11/25/2011 Respiratory cough 2011 Gastrointestinal No constipation 11/25/2011 Gastrointestinal No diarrhea 11/25/2011 Gastrointestinal No nausea 11/25/2011 Gastrointestinal No vomiting 11/25/2011 Musculoskeletal No stiffness 11/25/2011 Musculoskeletal No swelling 11/25/2011 Dermatologic No mole change 11/25/2011 Dermatologic No rash 10/2011 Dermatologic No sores Neurologic No gait abnormality 11/25/2011 Neurologic No mental status change 11/25/2011 Constitutional No chills 08/21/2011 Constitutional No fatigue 08/21/2011 Constitutional No fever 08/21/2011 Eyes No vision change Ears/Nose/Throat/Neck No nasal allergies 08/21/2011 Respiratory cough 2011 Gastrointestinal No constipation 08/21/2011 Gastrointestinal No diarrhea 08/21/2011 Gastrointestinal No nausea 08/21/2011 Gastrointestinal No vomiting 08/21/2011 Genitourinary/Nephrology No dysuria 08/21/2011 Genitourinary/Nephrology No flank pain 08/21/2011 Genitourinary/Nephrology No vaginal discharge 08/21/2011 Musculoskeletal No stiffness 08/21/2011 Musculoskeletal No swelling 08/21/2011 Dermatologic No mole change 08/21/2011 Dermatologic No rash 06/2011 Dermatologic No sores Neurologic No gait abnormality 08/21/2011 Neurologic No mental status change 08/21/2011 Genitourinary/Nephrology No flank pain 04/14/2011 Genitourinary/Nephrology No dysuria 04/14/2011 Genitourinary/Nephrology No vaginal discharge 04/14/2011 Musculoskeletal No stiffness 04/14/2011 Musculoskeletal No swelling 04/14/2011 Dermatologic No mole change 04/14/2011 Dermatologic No rash Dermatologic No sores Neurologic No gait abnormality 04/14/2011 Neurologic No mental status change 04/14/2011 Constitutional No fever 04/14/2011 Constitutional No chills 04/14/2011 Constitutional No fatigue 04/14/2011 Eyes No vision change Ears/Nose/Throat/Neck No nasal allergies 04/14/2011 Cardiovascular No palpitations 04/14/2011 Cardiovascular No chest pain/pressure 04/14/2011 Cardiovascular No dyspnea 04/14/2011 Cardiovascular No edema 04/14/2011 Respiratory cough 2011 Gastrointestinal No nausea 04/14/2011 Gastrointestinal No vomiting 04/14/2011 Gastrointestinal No constipation 04/14/2011 Gastrointestinal No diarrhea 04/14/2011 Ears/Nose/Throat/Neck No dysphagia 10/14/2010 Ears/Nose/Throat/Neck No hoarseness 10/14/2010 Cardiovascular No chest pain/pressure 10/14/2010 Cardiovascular No dyspnea 10/14/2010 Cardiovascular No edema 10/14/2010 Cardiovascular No exercise intolerance 10/14/2010 Cardiovascular No fatigue 10/14/2010 Cardiovascular hypertension 10/14/2010 Respiratory No chest tightness 10/14/2010 Respiratory No chest congestion 10/14/2010 Gastrointestinal No abdominal pain 10/14/2010 Gastrointestinal No constipation 10/14/2010 Gastrointestinal No diarrhea 10/14/2010 Gastrointestinal No gas and bloating 10/14/2010 Musculoskeletal No arthralgia(s) 10/14/2010 Musculoskeletal No back pain 10/14/2010 Neurologic No headache 0 10/14/2010 Neurologic No memory loss 10/14/2010 Psychiatric No anxiety 0 10/14/2010 Psychiatric No depression 10/14/2010 Genitourinary/Nephrology No pelvic pain 10/14/2010 Constitutional No night sweats 10/14/2010 Constitutional No anorexia 10/14/2010 Constitutional No diaphoresis 10/14/2010 Constitutional No fatigue 10/14/2010 Constitutional No fever 10/14/2010 Constitutional No insomnia 10/14/2010 Physical Exam Exam Name System Name It em Name Status Result Effective Dates Notes Full Exam - Dermatology Constitutional general appearance Overall: well nourished 11/01/2018 None Full Exam - Dermatology Constitutional general appearance Overall: well developed 11/01/2018 None Full Exam - Dermatology Constitutional general appearance Overall: in no acute distress 11/01/2018 None Full Exam - Dermatology Constitutional general appearance Overall: of normal body habitus 11/01/2018 None Full Exam - Dermatology Constitutional general appearance Overall: well groomed 11/01/2018 None Full Exam - Dermatology Respiratory auscultation Overall: breath sounds clear bilaterally 11/01/2018 None Full Exam - Dermatology Respiratory respiratory effort/rhythm Overall: no retractions 11/01/2018 None Full Exam - Dermatology Respiratory respiratory effort/rhythm Overall: normal rate 11/01/2018 None Full Exam - Dermatology Cardiovascular peripheral vascular system Overall: S1S2 11/01/2018 None Full Exam - Dermatology Psychiatric orientation Overall: oriented to person, place and time 11/01/2018 None Full Exam - Dermatology Integument insp & palp - abdomen Lesion: cyst 11/01/2018 None Full Exam - Dermatology Integument insp & palp - abdomen Distribution: localized 11/01/2018 None Full Exam - Dermatology Integument insp & palp - abdomen Location: on the upper abdomen 11/01/2018 None Full Exam - Dermatology Integument insp & palp - abdomen Color: flesh-colored 11/01/2018 None Full Exam - Dermatology Integument insp & palp - abdomen Number: one 11/01/2018 None Full Exam - Dermatology Integument insp & palp - abdomen Length: 1cm 11/01/2018 None Full Exam - Dermatology Integument insp & palp - abdomen Width: 1cm 11/01/2018 None Full Exam - Dermatology Eyes conjunctiva/eyelids Overall: clear conjunctiva bilaterally 11/01/2018 None Full Exam - Dermatology Musculoskeletal head and neck Overall: head atraumatic 11/01/2018 None Full Exam - General 1994 Constitutional general appearance Overall: well developed 09/06/2018 None Full Exam - General 1994 Constitutional general appearance Overall: in no acute distress 09/06/2018 None Full Exam - General 1994 Constitutional general appearance Overall: well nourished 09/06/2018 None Full Exam - General 1994 Constitutional general appearance Hygiene/Attention to Grooming: good hygiene 09/06/2018 None Full Exam - General 1994 Eyes conjunctiva/eyelids Overall: conjunctiva clear 09/06/2018 None Full Exam - General 1994 Eyes conjunctiva/eyelids Overall: cornea clear 09/06/2018 None Full Exam - General 1994 Eyes conjunctiva/eyelids Overall: eyelids normal 09/06/2018 None Full Exam - General 1994 Eyes pupils and irises Overall: pupils equal, round, reactive to light and accomodation 09/06/2018 None Full Exam - General 1994 Ears/Nose/Throat otoscopic exam Overall: external auditory canals clear 09/06/2018 None Full Exam - General 1994 Ears/Nose/Throat otoscopic exam Overall: tympanic membranes clear 09/06/2018 None Full Exam - General 1994 Ears/Nose/Throat lips/teeth/gingiva Overall: benign lips 09/06/2018 None Full Exam - General 1994 Ears/Nose/Throat lips/teeth/gingiva Overall: normal dentition 09/06/2018 None Full Exam - General 1994 Ears/Nose/Throat oral cavity/pharynx/larynx Overall: oral mucosa clear 09/06/2018 None Full Exam - General 1994 Ears/Nose/Throat oral cavity/pharynx/larynx Overall: oropharyngeal mucosa clear 09/06/2018 None Full Exam - General 1994 Ears/Nose/Throat oral cavity/pharynx/larynx Overall: no masses 09/06/2018 None Full Exam - General 1994 Respiratory auscultation Overall: breath sounds clear bilaterally 09/06/2018 None Full Exam - General 1994 Respiratory respiratory effort/rhythm Overall: no retractions 09/06/2018 None Full Exam - General 1994 Respiratory respiratory effort/rhythm Overall: normal rate 09/06/2018 None Full Exam - General 1994 Cardiovascular extremities Overall: no clubbing 09/06/2018 None Full Exam - General 1994 Cardiovascular auscultation of heart Overall: regular rate 09/06/2018 None Full Exam - General 1994 Cardiovascular auscultation of heart Overall: normal heart sounds 09/06/2018 None Full Exam - General 1994 Abdomen abdominal exam Overall: no tenderness 09/06/2018 None Full Exam - General 1994 Abdomen abdominal exam Overall: normal bowel sounds 09/06/2018 None Full Exam - General 1994 Musculoskeletal spine, ribs and pelvis Overall: good posture 09/06/2018 None Full Exam - General 1994 Musculoskeletal head and neck Overall: head atraumatic 09/06/2018 None Full Exam - General 1994 Musculoskeletal head and neck Overall: cervical spine benign 09/06/2018 None Full Exam - General 1994 Integument inspection of skin Overall: no rash, lesions 09/06/2018 None Full Exam - General 1994 Neurologic cranial nerves Overall: crainial nerves 2 - 12 grossly intact 09/06/2018 None Full Exam - General 1994 Psychiatric orientation/consciousness Overall: oriented to person, place and time 09/06/2018 None Full Exam - General 1994 Psychiatric mood and affect Overall: normal mood and affect 09/06/2018 None Full Exam - General 1994 Psychiatric appearance Overall: well-groomed, good eye contact 09/06/2018 None Full Exam - General 1994 Psychiatric speech Overall: normal quality, no aphasia 09/06/2018 None Full Exam - General 1994 Psychiatric speech Overall: normal quality, quantity, r ate 09/06/2018 None Full Exam - ENT Constitutional general appearance Overall: well nourished 07/08/2018 None Full Exam - ENT Constitutional general appearance Overall: well developed 07/08/2018 None Full Exam - ENT Constitutional general appearance Overall: in no acute distress 07/08/2018 None Full Exam - ENT Ears/Nose/Throat otoscopic exam Overall: external auditory canals normal 07/08/2018 None Full Exam - ENT Ears/Nose/Throat otoscopic exam Left tympanic membrane: air-fluid le hair 07/08/2018 None Full Exam - ENT Ears/Nose/Throat otoscopic exam Right tympanic membrane: air-fluid level 07/08/2018 None Full Exam - ENT Ears/Nose/Throat lips/teeth/gingiva Overall: benign lips 07/08/2018 None Full Exam - ENT Ears/Nose/Throat oropharynx Overall: oral mucosa clear 07/08/2018 None Full Exam - ENT Ears/Nose/Throat oropharynx Posterior Pharynx: clear post nasal drainage 07/08/2018 None Full Exam - ENT Ears/Nose/Throat oropharynx Posterior Pharynx: erythema 07/08/2018 None Full Exam - ENT Respiratory inspection Overall: no retractions 07/08/2018 None Full Exam - ENT Respiratory inspection Overall: normal rate None Full Exam - ENT Respiratory auscultation Overall: breath sounds clear bilater ally 07/08/2018 None Full Exam - ENT Cardiovascular auscultation of heart Rate: normal rate 07/08/2018 None Full Exam - ENT Cardiovascular auscultation of heart Rhythm: regular rhythm 07/08/2018 None Full Exam - ENT Lymphatic palpation of lymph nodes Overall: anterior cervical chain benign 07/08/2018 None Full Exam - ENT Lymphatic palpation of lymph nodes Overall: posterior cervical chain benign 07/08/2018 None Full Exam - ENT Neurologic mood and affect Overall: normal mood 07/08/2018 None Full Exam - ENT Neurologic mood and affect Overall: normal affect 07/08/2018 None Full Exam - ENT Neurologic orientation Overall: oriented to person, place a nd time 07/08/2018 None Full Exam - General 1994 Constitutional general appearance Overall: well developed 02/11/2018 None Full Exam - General 1994 Constitutional general appearance Overall: in no acute distress 02/11/2018 None Full Exam - General 1994 Constitutional general appearance Overall: well nourished 02/11/2018 None Full Exam - General 1994 Constitutional general appearance Hygiene/Attention to Grooming: good hygiene 02/11/2018 None Full Exam - General 1994 Eyes conjunctiva/eyelids Overall: conjunctiva clear 02/11/2018 None Full Exam - General 1994 Eyes conjunctiva/eyelids Overall: cornea clear 02/11/2018 None Full Exam - General 1994 Eyes conjunctiva/eyelids Overall: eyelids normal 02/11/2018 None Full Exam - General 1994 Eyes pupils and irises Overall: pupils equal, round, reactive to light and accomodation 02/11/2018 None Full Exam - General 1994 Ears/Nose/Throat otoscopic exam Overall: external auditory canals clear 02/11/2018 None Full Exam - General 1994 Ears/Nose/Throat otoscopic exam Overall: tympanic membranes clear 02/11/2018 None Full Exam - General 1994 Ears/Nose/Throat lips/teeth/gingiva Overall: benign lips 02/11/2018 None Full Exam - General 1995 Ears/Nose/Throat lips/teeth/gingiva Overall: normal dentition 02/11/2018 None Full Exam - General 1995 Ears/Nose/Throat oral cavity/pharynx/larynx Overall: oral mucosa clear 02/11/2018 None Full Exam - General 1995 Ears/Nose/Throat oral cavity/pharynx/larynx Overall: oropharyngeal mucosa clear 02/11/2018 None Full Exam - General 1995 Ears/Nose/Throat oral cavity/pharynx/larynx Overall: no masses 02/11/2018 None Full Exam - General 1994 Respiratory auscultation Overall: breath sounds clear bilaterally 02/11/2018 None Full Exam - General 1994 Respiratory respiratory effort/rhythm Overall: no retractions 02/11/2018 None Full Exam - General 1994 Respiratory respiratory effort/rhythm Overall: normal rate 02/11/2018 None Full Exam - General 1994 Cardiovascular extremities Overall: no clubbing 02/11/2018 None Full Exam - General 1994 Cardiovascular auscultation of heart Overall: regular rate 02/11/2018 None Full Exam - General 1994 Cardiovascular auscultation of heart Overall: normal heart sounds 02/11/2018 None Full Exam - General 1994 Abdomen abdominal exam Overall: no tenderness 02/11/2018 None Full Exam - General 1994 Abdomen abdominal exam Overall: normal bowel sounds 02/11/2018 None Full Exam - General 1994 Musculoskeletal spine, ribs and pelvis Overall: good posture 02/11/2018 None Full Exam - General 1994 Musculoskeletal head and neck Overall: head atraumatic 02/11/2018 None Full Exam - General 1994 Musculoskeletal head and neck Overall: cervical spine benign 02/11/2018 None Full Exam - General 1994 Integument inspection of skin Overall: no rash, lesions 02/11/2018 None Full Exam - General 1994 Neurologic cranial nerves Overall: crainial nerves 2 - 12 grossly intact 02/11/2018 None Full Exam - General 1994 Psychiatric orientation/consciousness Overall: oriented to person, place and time 02/11/2018 None Full Exam - General 1994 Psychiatric mood and affect Overall: normal mood and affect 02/11/2018 None Full Exam - General 1994 Psychiatric appearance Overall: well-groomed, good eye contact 02/11/2018 None Full Exam - General 1994 Psychiatric speech Overall: normal quality, no aphasia 02/11/2018 None Full Exam - General 1994 Psychiatric speech Overall: normal quality, quantity, r ate 02/11/2018 None Full Exam - Dermatology Constitutional general appearance Overall: well nourished 10/23/2017 None Full Exam - Dermatology Constitutional general appearance Overall: well developed 10/23/2017 None Full Exam - Dermatology Constitutional general appearance Overall: in no acute distress 10/23/2017 None Full Exam - Dermatology Constitutional general appearance Overall: of normal body habitus 10/23/2017 None Full Exam - Dermatology Constitutional general appearance Overall: well groomed 10/23/2017 None Full Exam - Dermatology Eyes conjunctiva/eyelids Overall: clear conjunctiva bilaterally 10/23/2017 None Full Exam - Dermatology Ears/Nose/Throat oropharynx Overall: clear oral mucosa 10/23/2017 None Full Exam - Dermatology Respiratory respiratory effort/rhythm Overall: no retractions 10/23/2017 None Full Exam - Dermatology Respiratory respiratory effort/rhythm Overall: normal rate 10/23/2017 None Full Exam - Dermatology Integument insp & palp - right lower extremity Location: on the toes 10/23/2017 right 4th toe lateral aspect -wart Full Exam - Dermatology Neurologic cranial nerves Overall: cranial nerves 1-12 intact 10/23/2017 None Full Exam - Dermatology Psychiatric orientation Overall: oriented to person, place and time 10/23/2017 None Full Exam - Dermatology Ears/Nose/Throat lips/teeth/gingiva Overall: benign lips 10/23/2017 None Full Exam - Dermatology Musculoskeletal head and neck Overall: head atraumatic 10/23/2017 None Full Exam - Dermatology Extremities inspection & palpation billateral lower extremities no clubbing or cyanosis 10/23/2017 None Full Exam - Dermatology Integument insp & palp - right upper extremity Lesion: patch 10/23/2017 None Full Exam - Dermatology Integument insp & palp - right upper extremity Location: on the forearm 10/23/2017 ecchymosis - approximately 1 cm in diameter Full Exam - General 1994 Constitutional general appearance Overall: well developed 08/13/2017 None Full Exam - General 1994 Constitutional general appearance Overall: in no acute distress 08/13/2017 None Full Exam - General 1994 Constitutional general appearance Overall: well nourished 08/13/2017 None Full Exam - General 1994 Constitutional general appearance Hygiene/Attention to Grooming: good hygiene 08/13/2017 None Full Exam - General 1994 Eyes conjunctiva/eyelids Overall: conjunctiva clear 08/13/2017 None Full Exam - General 1994 Eyes conjunctiva/eyelids Overall: cornea clear 08/13/2017 None Full Exam - General 1994 Eyes conjunctiva/eyelids Overall: eyelids normal 08/13/2017 None Full Exam - General 1994 Eyes pupils and irises Overall: pupils equal, round, reactive to light and accomodation 08/13/2017 None Full Exam - General 1994 Ears/Nose/Throat otoscopic exam Overall: external auditory canals clear 08/13/2017 None Full Exam - General 1994 Ears/Nose/Throat otoscopic exam Overall: tympanic membranes clear 08/13/2017 None Full Exam - General 1994 Ears/Nose/Throat lips/teeth/gingiva Overall: benign lips 08/13/2017 None Full Exam - General 1994 Ears/Nose/Throat lips/teeth/gingiva Overall: normal dentition 08/13/2017 None Full Exam - General 1994 Ears/Nose/Throat oral cavity/pharynx/larynx Overall: oral mucosa clear 08/13/2017 None Full Exam - General 1994 Ears/Nose/Throat oral cavity/pharynx/larynx Overall: oropharyngeal mucosa clear 08/13/2017 None Full Exam - General 1994 Ears/Nose/Throat oral cavity/pharynx/larynx Overall: no masses 08/13/2017 None Full Exam - General 1994 Respiratory auscultation Overall: breath sounds clear bilaterally 08/13/2017 None Full Exam - General 1994 Respiratory respiratory effort/rhythm Overall: no retractions 08/13/2017 None Full Exam - General 1994 Respiratory respiratory effort/rhythm Overall: normal rate 08/13/2017 None Full Exam - General 1994 Cardiovascular extremities Overall: no clubbing 08/13/2017 None Full Exam - General 1994 Cardiovascular auscultation of heart Overall: regular rate 08/13/2017 None Full Exam - General 1994 Cardiovascular auscultation of heart Overall: normal heart sounds 08/13/2017 None Full Exam - General 1994 Abdomen abdominal exam Overall: no tenderness 08/13/2017 None Full Exam - General 1994 Abdomen abdominal exam Overall: normal bowel sounds 08/13/2017 None Full Exam - General 1994 Musculoskeletal spine, ribs and pelvis Overall: good posture 08/13/2017 None Full Exam - General 1994 Musculoskeletal head and neck Overall: head atraumatic 08/13/2017 None Full Exam - General 1994 Musculoskeletal head and neck Overall: cervical spine benign 08/13/2017 None Full Exam - General 1994 Integument inspection of skin Overall: no rash, lesions 08/13/2017 None Full Exam - General 1994 Neurologic cranial nerves Overall: crainial nerves 2 - 12 grossly intact 08/13/2017 None Full Exam - General 1994 Psychiatric orientation/consciousness Overall: oriented to person, place and time 08/13/2017 None Full Exam - General 1994 Psychiatric mood and affect Overall: normal mood and affect 08/13/2017 None Full Exam - General 1994 Psychiatric appearance Overall: well-groomed, good eye contact 08/13/2017 None Full Exam - General 1994 Psychiatric speech Overall: normal quality, no aphasia 08/13/2017 None Full Exam - General 1994 Psychiatric speech Overall: normal quality, quantity, r ate 08/13/2017 None Full Exam - Dermatology Constitutional general appearance Overall: well nourished 07/16/2017 None Full Exam - Dermatology Constitutional general appearance Overall: well developed 07/16/2017 None Full Exam - Dermatology Constitutional general appearance Overall: in no acute distress 07/16/2017 None Full Exam - Dermatology Constitutional general appearance Overall: of normal body habitus 07/16/2017 None Full Exam - Dermatology Constitutional general appearance Overall: well groomed 07/16/2017 None Full Exam - Dermatology Integument insp & palp - right lower extremity Location: on the toes 07/16/2017 right 4th toe lateral aspect -callus --Resolved Full Exam - Dermatology Psychiatric orientation Overall: oriented to person, place and time 07/16/2017 None Full Exam - Dermatology Cardiovascular peripheral vascular system Overall: warm extremities 07/16/2017 None Full Exam - Dermatology Cardiovascular peripheral vascular system Overall: no edema 07/16/2017 None Full Exam - Dermatology Cardiovascular peripheral vascular system Overall: no tenderness 07/16/2017 None Full Exam - Dermatology Cardiovascular peripheral vascular system Overall: S1S2 07/16/2017 None Full Exam - Dermatology Cardiovascular peripheral vascular system Overall: strong, bilaterally equal carotid pulses without bruits 07/16/2017 None Full Exam - Dermatology Ears/Nose/Throat oropharynx Overall: clear oral mucosa 07/16/2017 None Full Exam - Dermatology Eyes conjunctiva/eyelids Overall: clear conjunctiva bilaterally 07/16/2017 None Full Exam - Dermatology Respiratory auscultation Overall: breath sounds clear bilaterally 07/16/2017 None Full Exam - Dermatology Respiratory respiratory effort/rhythm Overall: normal rate 07/16/2017 None Full Exam - Dermatology Respiratory respiratory effort/rhythm Overall: no retractions 07/16/2017 None Full Exam - Dermatology Extremities inspection & palpation billateral lower extremities no clubbing or cyanosis 07/16/2017 None Full Exam - Dermatology Neurologic cranial nerves Overall: cranial nerves 1-12 intact 07/16/2017 None Full Exam - Dermatology Constitutional general appearance Overall: well nourished 06/29/2017 None Full Exam - Dermatology Constitutional general appearance Overall: well developed 06/29/2017 None Full Exam - Dermatology Constitutional general appearance Overall: in no acute distress 06/29/2017 None Full Exam - Dermatology Constitutional general appearance Overall: of normal body habitus 06/29/2017 None Full Exam - Dermatology Constitutional general appearance Overall: well groomed 06/29/2017 None Full Exam - Dermatology Psychiatric orientation Overall: oriented to person, place and time 06/29/2017 None Full Exam - Dermatology Integument insp & palp - right lower extremity Location: on the toes 06/29/2017 right 4th toe lateral aspect -callus Full Exam - ENT Constitutional general appearance Overall: well nourished 05/01/2017 None Full Exam - ENT Constitutional general appearance Overall: well developed 05/01/2017 None Full Exam - ENT Constitutional general appearance Overall: in no acute distress 05/01/2017 None Full Exam - ENT Ears/Nose/Throat otoscopic exam Overall: external auditory canals normal 05/01/2017 None Full Exam - ENT Ears/Nose/Throat otoscopic exam Left tympanic membrane: air-fluid le hair 05/01/2017 None Full Exam - ENT Ears/Nose/Throat otoscopic exam Right tympanic membrane: air-fluid level 05/01/2017 None Full Exam - ENT Ears/Nose/Throat nasal mucosa, septum, turbinates Drainage: clear 05/01/2017 None Full Exam - ENT Ears/Nose/Throat nasal mucosa, septum, turbinates Drainage: yellow 05/01/2017 None Full Exam - ENT Ears/Nose/Throat lips/teeth/gingiva Overall: benign lips 05/01/2017 None Full Exam - ENT Ears/Nose/Throat oropharynx Posterior Pharynx: clear post nasal drainage 05/01/2017 None Full Exam - ENT Respiratory inspection Overall: no retractions 05/01/2017 None Full Exam - ENT Respiratory inspection Overall: normal rate None Full Exam - ENT Cardiovascular auscultation of heart Overall: regular rate 05/01/2017 None Full Exam - ENT Cardiovascular auscultation of heart Overall: normal heart sounds 05/01/2017 None Full Exam - ENT Lymphatic palpation of lymph nodes Overall: anterior cervical chain benign 05/01/2017 None Full Exam - ENT Lymphatic palpation of lymph nodes Overall: posterior cervical chain benign 05/01/2017 None Full Exam - ENT Neurologic mood and affect Overall: normal mood 05/01/2017 None Full Exam - ENT Neurologic mood and affect Overall: normal affect 05/01/2017 None Full Exam - ENT Neurologic orientation Overall: oriented to person, place a nd time 05/01/2017 None Full Exam - ENT Respiratory auscultation Overall: breath sounds clear bilater ally 05/01/2017 deep cough Full Exam - ENT Constitutional general appearance Overall: well nourished 04/24/2017 None Full Exam - ENT Constitutional general appearance Overall: well developed 04/24/2017 None Full Exam - ENT Constitutional general appearance Overall: in no acute distress 04/24/2017 None Full Exam - ENT Ears/Nose/Throat otoscopic exam Overall: external auditory canals normal 04/24/2017 None Full Exam - ENT Ears/Nose/Throat otoscopic exam Left tympanic membrane: air-fluid le hair 04/24/2017 None Full Exam - ENT Ears/Nose/Throat otoscopic exam Right tympanic membrane: air-fluid level 04/24/2017 None Full Exam - ENT Ears/Nose/Throat nasal mucosa, septum, turbinates Drainage: clear 04/24/2017 None Full Exam - ENT Ears/Nose/Throat nasal mucosa, septum, turbinates Drainage: yellow 04/24/2017 None Full Exam - ENT Ears/Nose/Throat lips/teeth/gingiva Overall: benign lips 04/24/2017 None Full Exam - ENT Ears/Nose/Throat oropharynx Posterior Pharynx: clear post nasal drainage 04/24/2017 None Full Exam - ENT Face and Head palpation Left maxillary sinus: tender 04/24/2017 None Full Exam - ENT Face and Head palpation Right maxillary sinus: tender 04/24/2017 None Full Exam - ENT Respiratory inspection Overall: no retractions 04/24/2017 None Full Exam - ENT Respiratory inspection Overall: normal rate 10/2017 None Full Exam - ENT Respiratory auscultation Overall: breath sounds clear bilater ally 04/24/2017 None Full Exam - ENT Cardiovascular auscultation of heart Overall: regular rate 04/24/2017 None Full Exam - ENT Cardiovascular auscultation of heart Overall: normal heart sounds 04/24/2017 None Full Exam - ENT Lymphatic palpation of lymph nodes Overall: anterior cervical chain benign 04/24/2017 None Full Exam - ENT Lymphatic palpation of lymph nodes Overall: posterior cervical chain benign 04/24/2017 None Full Exam - ENT Neurologic mood and affect Overall: normal mood 04/24/2017 None Full Exam - ENT Neurologic mood and affect Overall: normal affect 04/24/2017 None Full Exam - ENT Neurologic orientation Overall: oriented to person, place a nd time 04/24/2017 None Full Exam - Dermatology Constitutional general appearance Overall: well nourished 03/11/2017 None Full Exam - Dermatology Constitutional general appearance Overall: well developed 03/11/2017 None Full Exam - Dermatology Constitutional general appearance Overall: in no acute distress 03/11/2017 None Full Exam - Dermatology Eyes conjunctiva/eyelids Overall: clear conjunctiva bilaterally 03/11/2017 None Full Exam - Dermatology Eyes conjunctiva/eyelids Overall: clear corneas 03/11/2017 None Full Exam - Dermatology Eyes conjunctiva/eyelids Overall: normal eyelids 03/11/2017 None Full Exam - Dermatology Ears/Nose/Throat lips/teeth/gingiva Overall: benign lips 03/11/2017 None Full Exam - Dermatology Ears/Nose/Throat oropharynx Overall: clear oral mucosa 03/11/2017 None Full Exam - Dermatology Respiratory auscultation Overall: breath sounds clear bilaterally 03/11/2017 None Full Exam - Dermatology Respiratory respiratory effort/rhythm Overall: no retractions 03/11/2017 None Full Exam - Dermatology Respiratory respiratory effort/rhythm Overall: normal rate 03/11/2017 None Full Exam - Dermatology Musculoskeletal head and neck Overall: head atraumatic 03/11/2017 None Full Exam - Dermatology Musculoskeletal gait and station Overall: normal gait 03/11/2017 None Full Exam - Dermatology Musculoskeletal gait and station Overall: normal station 03/11/2017 None Full Exam - Dermatology Integument insp & palp - neck Lesion: patch 03/11/2017 None Full Exam - Dermatology Integument insp & palp - neck Location: on the right neck 03/11/2017 None Full Exam - Dermatology Integument insp & palp - neck Location: on the left neck 03/11/2017 None Full Exam - Dermatology Integument insp & palp - neck Location: on the anterior neck 03/11/2017 None Full Exam - Dermatology Integument insp & palp - neck Color: erythematous 03/11/2017 None Full Exam - Dermatology Integument insp & palp - neck Lesion: wheal 03/11/2017 None Full Exam - Dermatology Psychiatric orientation Overall: oriented to person, place and time 03/11/2017 None Full Exam - Dermatology Psychiatric mood and affect Overall: normal mood and affect 03/11/2017 None Full Exam - General 1994 Constitutional general appearance Overall: well developed 02/19/2017 None Full Exam - General 1994 Constitutional general appearance Overall: in no acute distress 02/19/2017 None Full Exam - General 1994 Constitutional general appearance Overall: well nourished 02/19/2017 None Full Exam - General 1994 Constitutional general appearance Hygiene/Attention to Grooming: good hygiene 02/19/2017 None Full Exam - General 1994 Eyes conjunctiva/eyelids Overall: conjunctiva clear 02/19/2017 None Full Exam - General 1994 Eyes conjunctiva/eyelids Overall: cornea clear 02/19/2017 None Full Exam - General 1994 Eyes conjunctiva/eyelids Overall: eyelids normal 02/19/2017 None Full Exam - General 1994 Eyes pupils and irises Overall: pupils equal, round, reactive to light and accomodation 02/19/2017 None Full Exam - General 1994 Ears/Nose/Throat otoscopic exam Overall: external auditory canals clear 02/19/2017 None Full Exam - General 1994 Ears/Nose/Throat otoscopic exam Overall: tympanic membranes clear 02/19/2017 None Full Exam - General 1994 Ears/Nose/Throat lips/teeth/gingiva Overall: benign lips 02/19/2017 None Full Exam - General 1994 Ears/Nose/Throat lips/teeth/gingiva Overall: normal dentition 02/19/2017 None Full Exam - General 1994 Ears/Nose/Throat oral cavity/pharynx/larynx Overall: oral mucosa clear 02/19/2017 None Full Exam - General 1994 Ears/Nose/Throat oral cavity/pharynx/larynx Overall: oropharyngeal mucosa clear 02/19/2017 None Full Exam - General 1994 Ears/Nose/Throat oral cavity/pharynx/larynx Overall: no masses 02/19/2017 None Full Exam - General 1994 Respiratory auscultation Overall: breath sounds clear bilaterally 02/19/2017 None Full Exam - General 1994 Respiratory respiratory effort/rhythm Overall: no retractions 02/19/2017 None Full Exam - General 1994 Respiratory respiratory effort/rhythm Overall: normal rate 02/19/2017 None Full Exam - General 1994 Cardiovascular extremities Overall: no clubbing 02/19/2017 None Full Exam - General 1994 Cardiovascular auscultation of heart Overall: regular rate 02/19/2017 None Full Exam - General 1994 Cardiovascular auscultation of heart Overall: normal heart sounds 02/19/2017 None Full Exam - General 1994 Abdomen abdominal exam Overall: no tenderness 02/19/2017 None Full Exam - General 1994 Abdomen abdominal exam Overall: normal bowel sounds 02/19/2017 None Full Exam - General 1994 Musculoskeletal spine, ribs and pelvis Overall: good posture 02/19/2017 None Full Exam - General 1994 Musculoskeletal head and neck Overall: head atraumatic 02/19/2017 None Full Exam - General 1994 Musculoskeletal head and neck Overall: cervical spine benign 02/19/2017 None Full Exam - General 1994 Integument inspection of skin Overall: no rash, lesions 02/19/2017 None Full Exam - General 1994 Neurologic cranial nerves Overall: crainial nerves 2 - 12 grossly intact 02/19/2017 None Full Exam - General 1994 Psychiatric orientation/consciousness Overall: oriented to person, place and time 02/19/2017 None Full Exam - General 1994 Psychiatric mood and affect Overall: normal mood and affect 02/19/2017 None Full Exam - General 1994 Psychiatric appearance Overall: well-groomed, good eye contact 02/19/2017 None Full Exam - General 1994 Psychiatric speech Overall: normal quality, no aphasia 02/19/2017 None Full Exam - General 1994 Psychiatric speech Overall: normal quality, quantity, r ate 02/19/2017 None Full Exam - General 1994 Constitutional general appearance Overall: well developed 10/16/2016 None Full Exam - General 1994 Constitutional general appearance Overall: in no acute distress 10/16/2016 None Full Exam - General 1994 Constitutional general appearance Overall: well nourished 10/16/2016 None Full Exam - General 1994 Constitutional general appearance Hygiene/Attention to Grooming: good hygiene 10/16/2016 None Full Exam - General 1994 Eyes conjunctiva/eyelids Overall: conjunctiva clear 10/16/2016 None Full Exam - General 1994 Eyes conjunctiva/eyelids Overall: cornea clear 10/16/2016 None Full Exam - General 1994 Eyes conjunctiva/eyelids Overall: eyelids normal 10/16/2016 None Full Exam - General 1994 Eyes pupils and irises Overall: pupils equal, round, reactive to light and accomodation 10/16/2016 None Full Exam - General 1994 Ears/Nose/Throat otoscopic exam Overall: external auditory canals clear 10/16/2016 None Full Exam - General 1994 Ears/Nose/Throat otoscopic exam Overall: tympanic membranes clear 10/16/2016 None Full Exam - General 1994 Ears/Nose/Throat lips/teeth/gingiva Overall: benign lips 10/16/2016 None Full Exam - General 1994 Ears/Nose/Throat lips/teeth/gingiva Overall: normal dentition 10/16/2016 None Full Exam - General 1994 Ears/Nose/Throat oral cavity/pharynx/larynx Overall: oral mucosa clear 10/16/2016 None Full Exam - General 1994 Ears/Nose/Throat oral cavity/pharynx/larynx Overall: oropharyngeal mucosa clear 10/16/2016 None Full Exam - General 1994 Ears/Nose/Throat oral cavity/pharynx/larynx Overall: no masses 10/16/2016 None Full Exam - General 1994 Respiratory auscultation Overall: breath sounds clear bilaterally 10/16/2016 None Full Exam - General 1994 Respiratory respiratory effort/rhythm Overall: no retractions 10/16/2016 None Full Exam - General 1994 Respiratory respiratory effort/rhythm Overall: normal rate 10/16/2016 None Full Exam - General 1994 Cardiovascular extremities Overall: no clubbing 10/16/2016 None Full Exam - General 1994 Cardiovascular auscultation of heart Overall: regular rate 10/16/2016 None Full Exam - General 1994 Cardiovascular auscultation of heart Overall: normal heart sounds 10/16/2016 None Full Exam - General 1994 Abdomen abdominal exam Overall: no tenderness 10/16/2016 None Full Exam - General 1994 Abdomen abdominal exam Overall: normal bowel sounds 10/16/2016 None Full Exam - General 1994 Musculoskeletal spine, ribs and pelvis Overall: good posture 10/16/2016 None Full Exam - General 1994 Musculoskeletal head and neck Overall: head atraumatic 10/16/2016 None Full Exam - General 1994 Musculoskeletal head and neck Overall: cervical spine benign 10/16/2016 None Full Exam - General 1994 Neurologic cranial nerves Overall: crainial nerves 2 - 12 grossly intact 10/16/2016 None Full Exam - General 1994 Psychiatric orientation/consciousness Overall: oriented to person, place and time 10/16/2016 None Full Exam - General 1994 Psychiatric mood and affect Overall: normal mood and affect 10/16/2016 None Full Exam - General 1994 Psychiatric appearance Overall: well-groomed, good eye contact 10/16/2016 None Full Exam - General 1994 Psychiatric speech Overall: normal quality, no aphasia 10/16/2016 None Full Exam - General 1994 Psychiatric speech Overall: normal quality, quantity, r ate 10/16/2016 None Full Exam - General 1994 Constitutional general appearance Overall: well developed 06/19/2016 None Full Exam - General 1994 Constitutional general appearance Overall: in no acute distress 06/19/2016 None Full Exam - General 1994 Constitutional general appearance Overall: well nourished 06/19/2016 None Full Exam - General 1994 Constitutional general appearance Hygiene/Attention to Grooming: good hygiene 06/19/2016 None Full Exam - General 1994 Eyes conjunctiva/eyelids Overall: conjunctiva clear 06/19/2016 None Full Exam - General 1994 Eyes conjunctiva/eyelids Overall: cornea clear 06/19/2016 None Full Exam - General 1994 Eyes conjunctiva/eyelids Overall: eyelids normal 06/19/2016 None Full Exam - General 1994 Eyes pupils and irises Overall: pupils equal, round, reactive to light and accomodation 06/19/2016 None Full Exam - General 1994 Ears/Nose/Throat otoscopic exam Overall: external auditory canals clear 06/19/2016 None Full Exam - General 1994 Ears/Nose/Throat otoscopic exam Overall: tympanic membranes clear 06/19/2016 None Full Exam - General 1994 Ears/Nose/Throat lips/teeth/gingiva Overall: benign lips 06/19/2016 None Full Exam - General 1994 Ears/Nose/Throat lips/teeth/gingiva Overall: normal dentition 06/19/2016 None Full Exam - General 1994 Ears/Nose/Throat oral cavity/pharynx/larynx Overall: oral mucosa clear 06/19/2016 None Full Exam - General 1994 Ears/Nose/Throat oral cavity/pharynx/larynx Overall: oropharyngeal mucosa clear 06/19/2016 None Full Exam - General 1994 Ears/Nose/Throat oral cavity/pharynx/larynx Overall: no masses 06/19/2016 None Full Exam - General 1994 Respiratory auscultation Overall: breath sounds clear bilaterally 06/19/2016 None Full Exam - General 1994 Respiratory respiratory effort/rhythm Overall: no retractions 06/19/2016 None Full Exam - General 1994 Respiratory respiratory effort/rhythm Overall: normal rate 06/19/2016 None Full Exam - General 1994 Cardiovascular extremities Overall: no clubbing 06/19/2016 None Full Exam - General 1994 Cardiovascular auscultation of heart Overall: regular rate 06/19/2016 None Full Exam - General 1994 Cardiovascular auscultation of heart Overall: normal heart sounds 06/19/2016 None Full Exam - General 1994 Abdomen abdominal exam Overall: no tenderness 06/19/2016 None Full Exam - General 1994 Abdomen abdominal exam Overall: normal bowel sounds 06/19/2016 None Full Exam - General 1994 Musculoskeletal spine, ribs and pelvis Overall: good posture 06/19/2016 None Full Exam - General 1994 Musculoskeletal head and neck Overall: head atraumatic 06/19/2016 None Full Exam - General 1994 Musculoskeletal head and neck Overall: cervical spine benign 06/19/2016 None Full Exam - General 1994 Integument inspection of skin Overall: no rash, lesions 06/19/2016 None Full Exam - General 1994 Neurologic cranial nerves Overall: crainial nerves 2 - 12 grossly intact 06/19/2016 None Full Exam - General 1994 Psychiatric orientation/consciousness Overall: oriented to person, place and time 06/19/2016 None Full Exam - General 1994 Psychiatric mood and affect Overall: normal mood and affect 06/19/2016 None Full Exam - General 1994 Psychiatric appearance Overall: well-groomed, good eye contact 06/19/2016 None Full Exam - General 1994 Psychiatric speech Overall: normal quality, no aphasia 06/19/2016 None Full Exam - General 1994 Psychiatric speech Overall: normal quality, quantity, r ate 06/19/2016 None Full Exam - Orthopedics Constitutional general appearance Overall: well nourished 03/13/2016 None Full Exam - Orthopedics Constitutional general appearance Overall: well developed 03/13/2016 None Full Exam - Orthopedics Constitutional general appearance Overall: in no acute distress 03/13/2016 None Full Exam - Orthopedics Psychiatric orientation/consciousness Overall: oriented to person, place and time 03/13/2016 None Full Exam - Orthopedics MS: left upp er extremity insp & palp - LUE Shoulder: tenderness @ biceps tendon 03/13/2016 None Full Exam - Orthopedics MS: left upp er extremity insp & palp - LUE Upper arm: tenderness 03/13/2016 None Full Exam - Orthopedics MS: left upp er extremity insp & palp - LUE Elbow: normal appearance 03/13/2016 None Full Exam - Orthopedics MS: left upp er extremity range of motion - LUE Shoulder: full range of motion 03/13/2016 None Full Exam - Orthopedics MS: left upp er extremity range of motion - LUE Shoulder: full abduction 03/13/2016 None Full Exam - Orthopedics MS: left upp er extremity range of motion - LUE Shoulder: full adduction 03/13/2016 None Full Exam - Orthopedics MS: left upp er extremity range of motion - LUE Shoulder: pain with internal rotation 03/13/2016 None Full Exam - Orthopedics MS: left upp er extremity stability - LUE Overall: shoulder, elbow, wrist stable 03/13/2016 None Full Exam - Orthopedics MS: left upp er extremity strength & tone - LUE Overall: normal shoulder muscle bulk and tone 03/13/2016 None Full Exam - General 1994 Constitutional general appearance Development: well developed 02/22/2016 None Full Exam - General 1994 Constitutional general appearance Development: appears stated age 0102/22/2016 None Full Exam - General 1994 Constitutional general appearance Hygiene/Attention to Grooming: good hygiene 02/22/2016 None Full Exam - General 1994 Eyes conjunctiva/eyelids Overall: conjunctiva clear 02/22/2016 None Full Exam - General 1994 Eyes conjunctiva/eyelids Overall: cornea clear 02/22/2016 None Full Exam - General 1994 Eyes conjunctiva/eyelids Overall: eyelids normal 02/22/2016 None Full Exam - General 1994 Eyes pupils and irises Overall: pupils equal, round, reactive to light and accomodation 02/22/2016 None Full Exam - General 1994 Ears/Nose/Throat oral cavity/pharynx/larynx Overall: oral mucosa clear 02/22/2016 None Full Exam - General 1994 Ears/Nose/Throat oral cavity/pharynx/larynx Overall: oropharyngeal mucosa clear 02/22/2016 None Full Exam - General 1994 Ears/Nose/Throat oral cavity/pharynx/larynx Overall: hypopharynx benign 02/22/2016 None Full Exam - General 1994 Ears/Nose/Throat oral cavity/pharynx/larynx Overall: no masses 02/22/2016 None Full Exam - General 1994 Respiratory auscultation Overall: breath sounds clear bilaterally 02/22/2016 None Full Exam - General 1994 Respiratory respiratory effort/rhythm Overall: no retractions 02/22/2016 None Full Exam - General 1994 Respiratory respiratory effort/rhythm Overall: normal rate 02/22/2016 None Full Exam - General 1994 Cardiovascular extremities Overall: no clubbing 02/22/2016 None Full Exam - General 1994 Cardiovascular auscultation of heart Overall: regular rate 02/22/2016 None Full Exam - General 1994 Cardiovascular auscultation of heart Overall: normal heart sounds 02/22/2016 None Full Exam - General 1994 Musculoskeletal spine, ribs and pelvis Overall: good posture 02/22/2016 None Full Exam - General 1994 Musculoskeletal head and neck Overall: head atraumatic 02/22/2016 None Full Exam - General 1994 Musculoskeletal head and neck Overall: cervical spine benign 02/22/2016 None Full Exam - General 1994 Psychiatric orientation/consciousness Overall: oriented to person, place and time 02/22/2016 None Full Exam - General 1994 Psychiatric mood and affect Overall: normal mood and affect 02/22/2016 None Full Exam - General 1994 Constitutional general appearance Development: well developed 12/18/2015 None Full Exam - General 1994 Constitutional general appearance Development: appears stated age 1112/18/2015 None Full Exam - General 1994 Constitutional general appearance Hygiene/Attention to Grooming: good hygiene 12/18/2015 None Full Exam - General 1994 Eyes pupils and irises Overall: pupils equal, round, reactive to light and accomodation 12/18/2015 None Full Exam - General 1994 Ears/Nose/Throat oral cavity/pharynx/larynx Overall: oral mucosa clear 12/18/2015 None Full Exam - General 1994 Respiratory auscultation Overall: breath sounds clear bilaterally 12/18/2015 None Full Exam - General 1994 Respiratory respiratory effort/rhythm Overall: no retractions 12/18/2015 None Full Exam - General 1994 Respiratory respiratory effort/rhythm Overall: normal rate 12/18/2015 None Full Exam - General 1994 Cardiovascular extremities Overall: no clubbing 12/18/2015 None Full Exam - General 1994 Cardiovascular auscultation of heart Overall: regular rate 12/18/2015 None Full Exam - General 1994 Cardiovascular auscultation of heart Overall: normal heart sounds 12/18/2015 None Full Exam - General 1994 Musculoskeletal spine, ribs and pelvis Overall: spine benign 12/18/2015 None Full Exam - General 1994 Musculoskeletal spine, ribs and pelvis Overall: sacroiliac joint benign 12/18/2015 None Full Exam - General 1994 Musculoskeletal spine, ribs and pelvis Overall: good posture 12/18/2015 None Full Exam - General 1994 Musculoskeletal head and neck Overall: head atraumatic 12/18/2015 None Full Exam - General 1994 Musculoskeletal head and neck Overall: cervical spine benign 12/18/2015 None Full Exam - General 1994 Neurologic deep tendon reflexes Overall: deep tendon reflexes intact 12/18/2015 None Full Exam - General 1994 Neurologic cranial nerves Overall: crainial nerves 2 - 12 grossly intact 12/18/2015 None Full Exam - General 1994 Psychiatric orientation/consciousness Overall: oriented to person, place and time 12/18/2015 None Full Exam - General 1994 Psychiatric mood and affect Overall: normal mood and affect 12/18/2015 None Full Exam - General 1994 Constitutional general appearance Development: well developed 11/13/2015 None Full Exam - General 1994 Constitutional general appearance Development: appears stated age 0911/13/2015 None Full Exam - General 1994 Constitutional general appearance Hygiene/Attention to Grooming: good hygiene 11/13/2015 None Full Exam - General 1994 Eyes conjunctiva/eyelids Overall: conjunctiva clear 11/13/2015 None Full Exam - General 1994 Eyes conjunctiva/eyelids Overall: cornea clear 11/13/2015 None Full Exam - General 1994 Eyes conjunctiva/eyelids Overall: eyelids normal 11/13/2015 None Full Exam - General 1994 Eyes pupils and irises Overall: pupils equal, round, reactive to light and accomodation 11/13/2015 None Full Exam - General 1994 Ears/Nose/Throat oral cavity/pharynx/larynx Overall: oral mucosa clear 11/13/2015 None Full Exam - General 1994 Ears/Nose/Throat oral cavity/pharynx/larynx Overall: oropharyngeal mucosa clear 11/13/2015 None Full Exam - General 1994 Ears/Nose/Throat oral cavity/pharynx/larynx Overall: hypopharynx benign 11/13/2015 None Full Exam - General 1994 Ears/Nose/Throat oral cavity/pharynx/larynx Overall: no masses 11/13/2015 None Full Exam - General 1994 Respiratory auscultation Overall: breath sounds clear bilaterally 11/13/2015 None Full Exam - General 1994 Respiratory respiratory effort/rhythm Overall: no retractions 11/13/2015 None Full Exam - General 1994 Respiratory respiratory effort/rhythm Overall: normal rate 11/13/2015 None Full Exam - General 1994 Cardiovascular extremities Overall: no clubbing 11/13/2015 None Full Exam - General 1994 Cardiovascular auscultation of heart Overall: regular rate 11/13/2015 None Full Exam - General 1994 Cardiovascular auscultation of heart Overall: normal heart sounds 11/13/2015 None Full Exam - General 1994 Musculoskeletal spine, ribs and pelvis Overall: good posture 11/13/2015 None Full Exam - General 1994 Musculoskeletal head and neck Overall: head atraumatic 11/13/2015 None Full Exam - General 1994 Musculoskeletal head and neck Overall: cervical spine benign 11/13/2015 None Full Exam - General 1994 Psychiatric orientation/consciousness Overall: oriented to person, place and time 11/13/2015 None Full Exam - General 1994 Psychiatric mood and affect Overall: normal mood and affect 11/13/2015 None Full Exam - General 1994 Eyes conjunctiva/eyelids Overall: conjunctiva clear 10/10/2015 None Full Exam - General 1994 Eyes conjunctiva/eyelids Overall: cornea clear 10/10/2015 None Full Exam - General 1994 Eyes conjunctiva/eyelids Overall: eyelids normal 10/10/2015 None Full Exam - General 1994 Eyes pupils and irises Overall: pupils equal, round, reactive to light and accomodation 10/10/2015 None Full Exam - General 1994 Ears/Nose/Throat oral cavity/pharynx/larynx Overall: oral mucosa clear 10/10/2015 None Full Exam - General 1994 Ears/Nose/Throat oral cavity/pharynx/larynx Overall: oropharyngeal mucosa clear 10/10/2015 None Full Exam - General 1994 Ears/Nose/Throat oral cavity/pharynx/larynx Overall: no masses 10/10/2015 None Full Exam - General 1994 Respiratory auscultation Overall: breath sounds clear bilaterally 10/10/2015 None Full Exam - General 1994 Respiratory respiratory effort/rhythm Overall: no retractions 10/10/2015 None Full Exam - General 1994 Respiratory respiratory effort/rhythm Overall: normal rate 10/10/2015 None Full Exam - General 1994 Cardiovascular extremities Overall: no clubbing 10/10/2015 None Full Exam - General 1994 Cardiovascular auscultation of heart Overall: regular rate 10/10/2015 None Full Exam - General 1994 Cardiovascular auscultation of heart Overall: normal heart sounds 10/10/2015 None Full Exam - General 1994 Musculoskeletal spine, ribs and pelvis Overall: good posture 10/10/2015 None Full Exam - General 1994 Musculoskeletal head and neck Overall: head atraumatic 10/10/2015 None Full Exam - General 1994 Musculoskeletal head and neck Overall: cervical spine benign 10/10/2015 None Full Exam - General 1994 Psychiatric orientation/consciousness Overall: oriented to person, place and time 10/10/2015 None Full Exam - General 1994 Psychiatric mood and affect Overall: normal mood and affect 10/10/2015 None Full Exam - General 1994 Constitutional general appearance Overall: well developed 10/10/2015 None Full Exam - General 1994 Constitutional general appearance Overall: in no acute distress 10/10/2015 None Full Exam - General 1994 Constitutional general appearance Overall: well nourished 10/10/2015 None Full Exam - General 1994 Constitutional general appearance Hygiene/Attention to Grooming: good hygiene 10/10/2015 None Full Exam - General 1994 Ears/Nose/Throat lips/teeth/gingiva Overall: benign lips 10/10/2015 None Full Exam - General 1994 Ears/Nose/Throat lips/teeth/gingiva Overall: normal dentition 10/10/2015 None Full Exam - General 1994 Ears/Nose/Throat otoscopic exam Overall: external auditory canals clear 10/10/2015 None Full Exam - General 1994 Ears/Nose/Throat otoscopic exam Overall: tympanic membranes clear 10/10/2015 None Full Exam - General 1994 Abdomen abdominal exam Overall: no tenderness 10/10/2015 None Full Exam - General 1994 Abdomen abdominal exam Overall: normal bowel sounds 10/10/2015 None Full Exam - General 1994 Integument inspection of skin Overall: no rash, lesions 10/10/2015 None Full Exam - General 1994 Neurologic cranial nerves Overall: crainial nerves 2 - 12 grossly intact 10/10/2015 None Full Exam - General 1994 Psychiatric appearance Overall: well-groomed, good eye contact 10/10/2015 None Full Exam - General 1994 Psychiatric speech Overall: normal quality, no aphasia 10/10/2015 None Full Exam - General 1994 Psychiatric speech Overall: normal quality, quantity, r ate 10/10/2015 None Full Exam - General 1994 Constitutional general appearance Development: well developed 07/10/2015 None Full Exam - General 1994 Constitutional general appearance Development: appears stated age 0507/10/2015 None Full Exam - General 1994 Constitutional general appearance Hygiene/Attention to Grooming: good hygiene 07/10/2015 None Full Exam - General 1994 Eyes conjunctiva/eyelids Overall: conjunctiva clear 07/10/2015 None Full Exam - General 1994 Eyes conjunctiva/eyelids Overall: cornea clear 07/10/2015 None Full Exam - General 1994 Eyes conjunctiva/eyelids Overall: eyelids normal 07/10/2015 None Full Exam - General 1994 Eyes pupils and irises Overall: pupils equal, round, reactive to light and accomodation 07/10/2015 None Full Exam - General 1994 Ears/Nose/Throat oral cavity/pharynx/larynx Overall: oral mucosa clear 07/10/2015 None Full Exam - General 1994 Ears/Nose/Throat oral cavity/pharynx/larynx Overall: oropharyngeal mucosa clear 07/10/2015 None Full Exam - General 1994 Ears/Nose/Throat oral cavity/pharynx/larynx Overall: hypopharynx benign 07/10/2015 None Full Exam - General 1994 Ears/Nose/Throat oral cavity/pharynx/larynx Overall: no masses 07/10/2015 None Full Exam - General 1994 Respiratory auscultation Overall: breath sounds clear bilaterally 07/10/2015 None Full Exam - General 1994 Respiratory respiratory effort/rhythm Overall: no retractions 07/10/2015 None Full Exam - General 1994 Respiratory respiratory effort/rhythm Overall: normal rate 07/10/2015 None Full Exam - General 1994 Cardiovascular extremities Overall: no clubbing 07/10/2015 None Full Exam - General 1994 Cardiovascular auscultation of heart Overall: regular rate 07/10/2015 None Full Exam - General 1994 Cardiovascular auscultation of heart Overall: normal heart sounds 07/10/2015 None Full Exam - General 1994 Musculoskeletal spine, ribs and pelvis Overall: good posture 07/10/2015 None Full Exam - General 1994 Musculoskeletal head and neck Overall: head atraumatic 07/10/2015 None Full Exam - General 1994 Musculoskeletal head and neck Overall: cervical spine benign 07/10/2015 None Full Exam - General 1994 Psychiatric orientation/consciousness Overall: oriented to person, place and time 07/10/2015 None Full Exam - General 1994 Psychiatric mood and affect Overall: normal mood and affect 07/10/2015 None Full Exam - General 1994 Constitutional general appearance Development: well developed 06/05/2015 None Full Exam - General 1994 Constitutional general appearance Development: appears stated age 0406/05/2015 None Full Exam - General 1994 Constitutional general appearance Hygiene/Attention to Grooming: good hygiene 06/05/2015 None Full Exam - General 1994 Eyes conjunctiva/eyelids Overall: conjunctiva clear 06/05/2015 None Full Exam - General 1994 Eyes conjunctiva/eyelids Overall: cornea clear 06/05/2015 None Full Exam - General 1994 Eyes conjunctiva/eyelids Overall: eyelids normal 06/05/2015 None Full Exam - General 1994 Eyes pupils and irises Overall: pupils equal, round, reactive to light and accomodation 06/05/2015 None Full Exam - General 1994 Ears/Nose/Throat oral cavity/pharynx/larynx Overall: oral mucosa clear 06/05/2015 None Full Exam - General 1994 Ears/Nose/Throat oral cavity/pharynx/larynx Overall: oropharyngeal mucosa clear 06/05/2015 None Full Exam - General 1994 Ears/Nose/Throat oral cavity/pharynx/larynx Overall: hypopharynx benign 06/05/2015 None Full Exam - General 1994 Ears/Nose/Throat oral cavity/pharynx/larynx Overall: no masses 06/05/2015 None Full Exam - General 1994 Respiratory auscultation Overall: breath sounds clear bilaterally 06/05/2015 None Full Exam - General 1994 Respiratory respiratory effort/rhythm Overall: no retractions 06/05/2015 None Full Exam - General 1994 Respiratory respiratory effort/rhythm Overall: normal rate 06/05/2015 None Full Exam - General 1994 Cardiovascular extremities Overall: no clubbing 06/05/2015 None Full Exam - General 1994 Cardiovascular auscultation of heart Overall: regular rate 06/05/2015 None Full Exam - General 1994 Cardiovascular auscultation of heart Overall: normal heart sounds 06/05/2015 None Full Exam - General 1994 Musculoskeletal spine, ribs and pelvis Overall: good posture 06/05/2015 None Full Exam - General 1994 Musculoskeletal head and neck Overall: head atraumatic 06/05/2015 None Full Exam - General 1994 Musculoskeletal head and neck Overall: cervical spine benign 06/05/2015 None Full Exam - General 1994 Psychiatric orientation/consciousness Overall: oriented to person, place and time 06/05/2015 None Full Exam - General 1994 Psychiatric mood and affect Overall: normal mood and affect 06/05/2015 None Full Exam - General 1994 Constitutional general appearance Development: well developed 05/01/2015 None Full Exam - General 1994 Constitutional general appearance Development: appears stated age 0305/01/2015 None Full Exam - General 1994 Constitutional general appearance Hygiene/Attention to Grooming: good hygiene 05/01/2015 None Full Exam - General 1994 Eyes conjunctiva/eyelids Overall: conjunctiva clear 05/01/2015 None Full Exam - General 1994 Eyes conjunctiva/eyelids Overall: cornea clear 05/01/2015 None Full Exam - General 1994 Eyes conjunctiva/eyelids Overall: eyelids normal 05/01/2015 None Full Exam - General 1994 Eyes pupils and irises Overall: pupils equal, round, reactive to light and accomodation 05/01/2015 None Full Exam - General 1994 Ears/Nose/Throat oral cavity/pharynx/larynx Overall: oral mucosa clear 05/01/2015 None Full Exam - General 1994 Ears/Nose/Throat oral cavity/pharynx/larynx Overall: oropharyngeal mucosa clear 05/01/2015 None Full Exam - General 1994 Ears/Nose/Throat oral cavity/pharynx/larynx Overall: hypopharynx benign 05/01/2015 None Full Exam - General 1994 Ears/Nose/Throat oral cavity/pharynx/larynx Overall: no masses 05/01/2015 None Full Exam - General 1994 Respiratory auscultation Overall: breath sounds clear bilaterally 05/01/2015 None Full Exam - General 1994 Respiratory respiratory effort/rhythm Overall: no retractions 05/01/2015 None Full Exam - General 1994 Respiratory respiratory effort/rhythm Overall: normal rate 05/01/2015 None Full Exam - General 1994 Cardiovascular extremities Overall: no clubbing 05/01/2015 None Full Exam - General 1994 Cardiovascular auscultation of heart Overall: regular rate 05/01/2015 None Full Exam - General 1994 Cardiovascular auscultation of heart Overall: normal heart sounds 05/01/2015 None Full Exam - General 1994 Musculoskeletal spine, ribs and pelvis Overall: good posture 05/01/2015 None Full Exam - General 1994 Musculoskeletal head and neck Overall: head atraumatic 05/01/2015 None Full Exam - General 1994 Musculoskeletal head and neck Overall: cervical spine benign 05/01/2015 None Full Exam - General 1994 Psychiatric orientation/consciousness Overall: oriented to person, place and time 05/01/2015 None Full Exam - General 1994 Psychiatric mood and affect Overall: normal mood and affect 05/01/2015 None Full Exam - General 1994 Constitutional general appearance Development: well developed 04/09/2015 None Full Exam - General 1994 Constitutional general appearance Development: appears stated age 0204/09/2015 None Full Exam - General 1994 Constitutional general appearance Hygiene/Attention to Grooming: good hygiene 04/09/2015 None Full Exam - General 1994 Eyes conjunctiva/eyelids Overall: conjunctiva clear 04/09/2015 None Full Exam - General 1994 Eyes conjunctiva/eyelids Overall: cornea clear 04/09/2015 None Full Exam - General 1994 Eyes conjunctiva/eyelids Overall: eyelids normal 04/09/2015 None Full Exam - General 1994 Eyes pupils and irises Overall: pupils equal, round, reactive to light and accomodation 04/09/2015 None Full Exam - General 1994 Ears/Nose/Throat otoscopic exam Overall: external auditory canals clear 04/09/2015 None Full Exam - General 1994 Ears/Nose/Throat otoscopic exam Overall: tympanic membranes clear 04/09/2015 None Full Exam - General 1994 Ears/Nose/Throat lips/teeth/gingiva Overall: benign lips 04/09/2015 None Full Exam - General 1994 Ears/Nose/Throat lips/teeth/gingiva Overall: normal dentition 04/09/2015 None Full Exam - General 1994 Ears/Nose/Throat oral cavity/pharynx/larynx Overall: oral mucosa clear 04/09/2015 None Full Exam - General 1994 Ears/Nose/Throat oral cavity/pharynx/larynx Overall: oropharyngeal mucosa clear 04/09/2015 None Full Exam - General 1994 Ears/Nose/Throat oral cavity/pharynx/larynx Overall: hypopharynx benign 04/09/2015 None Full Exam - General 1994 Ears/Nose/Throat oral cavity/pharynx/larynx Overall: no masses 04/09/2015 None Full Exam - General 1994 Respiratory auscultation Overall: breath sounds clear bilaterally 04/09/2015 None Full Exam - General 1994 Respiratory respiratory effort/rhythm Overall: no retractions 04/09/2015 None Full Exam - General 1994 Respiratory respiratory effort/rhythm Overall: normal rate 04/09/2015 None Full Exam - General 1994 Cardiovascular extremities Overall: no clubbing 04/09/2015 None Full Exam - General 1994 Cardiovascular auscultation of heart Overall: regular rate 04/09/2015 None Full Exam - General 1994 Cardiovascular auscultation of heart Overall: normal heart sounds 04/09/2015 None Full Exam - General 1994 Abdomen abdominal exam Overall: no tenderness 04/09/2015 None Full Exam - General 1994 Abdomen abdominal exam Overall: normal bowel sounds 04/09/2015 None Full Exam - General 1994 Lymphatic neck nodes Overall: anterior cervical chain benign 04/09/2015 None Full Exam - General 1994 Lymphatic neck nodes Overall: posterior cervical chain benign 04/09/2015 None Full Exam - General 1994 Musculoskeletal spine, ribs and pelvis Overall: good posture 04/09/2015 None Full Exam - General 1994 Musculoskeletal head and neck Overall: head atraumatic 04/09/2015 None Full Exam - General 1994 Musculoskeletal head and neck Overall: cervical spine benign 04/09/2015 None Full Exam - General 1994 Integument inspection of skin Overall: few scattered moles, no gross abnormalities 04/09/2015 None Full Exam - General 1994 Neurologic cranial nerves Overall: crainial nerves 2 - 12 grossly intact 04/09/2015 None Full Exam - General 1994 Psychiatric orientation/consciousness Overall: oriented to person, place and time 04/09/2015 None Full Exam - General 1994 Psychiatric mood and affect Overall: normal mood and affect 04/09/2015 None Full Exam - General 1994 Musculoskeletal lower extremity Inspection - knee: presence of a scar 04/09/2015 healing incision, steri strips in place, no edeam, erythema, or warmth noted. Full Exam - General 1994 Constitutional general appearance Development: well developed 03/26/2015 None Full Exam - General 1994 Constitutional general appearance Development: appears stated age 0203/26/2015 None Full Exam - General 1994 Constitutional general appearance Hygiene/Attention to Grooming: good hygiene 03/26/2015 None Full Exam - General 1994 Eyes conjunctiva/eyelids Overall: conjunctiva clear 03/26/2015 None Full Exam - General 1994 Eyes conjunctiva/eyelids Overall: cornea clear 03/26/2015 None Full Exam - General 1994 Eyes conjunctiva/eyelids Overall: eyelids normal 03/26/2015 None Full Exam - General 1994 Eyes pupils and irises Overall: pupils equal, round, reactive to light and accomodation 03/26/2015 None Full Exam - General 1994 Ears/Nose/Throat otoscopic exam Overall: external auditory canals clear 03/26/2015 None Full Exam - General 1994 Ears/Nose/Throat otoscopic exam Overall: tympanic membranes clear 03/26/2015 None Full Exam - General 1994 Ears/Nose/Throat lips/teeth/gingiva Overall: benign lips 03/26/2015 None Full Exam - General 1994 Ears/Nose/Throat lips/teeth/gingiva Overall: normal dentition 03/26/2015 None Full Exam - General 1994 Ears/Nose/Throat oral cavity/pharynx/larynx Overall: oral mucosa clear 03/26/2015 None Full Exam - General 1994 Ears/Nose/Throat oral cavity/pharynx/larynx Overall: oropharyngeal mucosa clear 03/26/2015 None Full Exam - General 1994 Ears/Nose/Throat oral cavity/pharynx/larynx Overall: hypopharynx benign 03/26/2015 None Full Exam - General 1994 Ears/Nose/Throat oral cavity/pharynx/larynx Overall: no masses 03/26/2015 None Full Exam - General 1994 Respiratory auscultation Overall: breath sounds clear bilaterally 03/26/2015 None Full Exam - General 1994 Respiratory respiratory effort/rhythm Overall: no retractions 03/26/2015 None Full Exam - General 1994 Respiratory respiratory effort/rhythm Overall: normal rate 03/26/2015 None Full Exam - General 1994 Cardiovascular extremities Overall: no clubbing 03/26/2015 None Full Exam - General 1994 Cardiovascular auscultation of heart Overall: regular rate 03/26/2015 None Full Exam - General 1994 Cardiovascular auscultation of heart Overall: normal heart sounds 03/26/2015 None Full Exam - General 1994 Abdomen abdominal exam Overall: no tenderness 03/26/2015 None Full Exam - General 1994 Abdomen abdominal exam Overall: normal bowel sounds 03/26/2015 None Full Exam - General 1994 Lymphatic neck nodes Overall: anterior cervical chain benign 03/26/2015 None Full Exam - General 1994 Lymphatic neck nodes Overall: posterior cervical chain benign 03/26/2015 None Full Exam - General 1994 Musculoskeletal spine, ribs and pelvis Overall: spine benign 03/26/2015 None Full Exam - General 1994 Musculoskeletal spine, ribs and pelvis Overall: sacroiliac joint benign 03/26/2015 None Full Exam - General 1994 Musculoskeletal spine, ribs and pelvis Overall: good posture 03/26/2015 None Full Exam - General 1994 Musculoskeletal head and neck Overall: head atraumatic 03/26/2015 None Full Exam - General 1994 Musculoskeletal head and neck Overall: cervical spine benign 03/26/2015 None Full Exam - General 1994 Integument inspection of skin Overall: few scattered moles, no gross abnormalities 03/26/2015 None Full Exam - General 1994 Neurologic deep tendon reflexes Overall: deep tendon reflexes intact 03/26/2015 None Full Exam - General 1994 Neurologic cranial nerves Overall: crainial nerves 2 - 12 grossly intact 03/26/2015 None Full Exam - General 1994 Psychiatric orientation/consciousness Overall: oriented to person, place and time 03/26/2015 None Full Exam - General 1994 Psychiatric mood and affect Overall: normal mood and affect 03/26/2015 None Full Exam - General 1994 Constitutional general appearance Overall: well developed 11/17/2014 None Full Exam - General 1994 Constitutional general appearance Overall: in no acute distress 11/17/2014 None Full Exam - General 1994 Constitutional general appearance Overall: well nourished 11/17/2014 None Full Exam - General 1994 Abdomen abdominal exam Contour: rounded 11/17/2014 None Full Exam - General 1994 Integument inspection of skin Overall: no rash, lesions 11/17/2014 None Full Exam - General 1994 Psychiatric orientation/consciousness Overall: oriented to person, place and time 11/17/2014 None Full Exam - General 1994 Ears/Nose/Throat oral cavity/pharynx/larynx Oral mucosa: aphthous ulcer 11/17/2014 x2 upper lip and left cheek Full Exam - General 1994 Ears/Nose/Throat otoscopic exam Overall: external auditory canals clear 11/17/2014 None Full Exam - General 1994 Ears/Nose/Throat otoscopic exam Overall: tympanic membranes clear 11/17/2014 None Full Exam - General 1994 Abdomen abdominal exam Upper quadrant: tender to palpation 11/17/2014 None Full Exam - General 1994 Abdomen abdominal exam Lower quadrant: tender to palpation 11/17/2014 None Full Exam - General 1994 Constitutional general appearance Overall: well developed 10/31/2014 None Full Exam - General 1994 Constitutional general appearance Overall: in no acute distress 10/31/2014 None Full Exam - General 1994 Constitutional general appearance Overall: well nourished 10/31/2014 None Full Exam - General 1994 Psychiatric orientation/consciousness Overall: oriented to person, place and time 10/31/2014 None Full Exam - General 1994 Integument inspection of skin Overall: no rash, lesions 10/31/2014 None Full Exam - General 1994 Abdomen abdominal exam Contour: rounded 10/31/2014 None Full Exam - General 1994 Abdomen abdominal exam Suprapubic: tender to palpation 10/31/2014 slightly tender to left g roin-no mass, hernia, abnormality noted upon palpation Full Exam - General 1994 Constitutional general appearance Development: well developed 09/28/2014 None Full Exam - General 1994 Constitutional general appearance Development: appears stated age 0809/28/2014 None Full Exam - General 1994 Constitutional general appearance Hygiene/Attention to Grooming: good hygiene 09/28/2014 None Full Exam - General 1994 Eyes conjunctiva/eyelids Overall: conjunctiva clear 09/28/2014 None Full Exam - General 1994 Eyes conjunctiva/eyelids Overall: cornea clear 09/28/2014 None Full Exam - General 1994 Eyes conjunctiva/eyelids Overall: eyelids normal 09/28/2014 None Full Exam - General 1994 Eyes pupils and irises Overall: pupils equal, round, reactive to light and accomodation 09/28/2014 None Full Exam - General 1994 Ears/Nose/Throat otoscopic exam Overall: external auditory canals clear 09/28/2014 None Full Exam - General 1994 Ears/Nose/Throat otoscopic exam Overall: tympanic membranes clear 09/28/2014 None Full Exam - General 1994 Ears/Nose/Throat lips/teeth/gingiva Overall: benign lips 09/28/2014 None Full Exam - General 1994 Ears/Nose/Throat lips/teeth/gingiva Overall: normal dentition 09/28/2014 None Full Exam - General 1994 Ears/Nose/Throat oral cavity/pharynx/larynx Overall: oral mucosa clear 09/28/2014 None Full Exam - General 1994 Ears/Nose/Throat oral cavity/pharynx/larynx Overall: oropharyngeal mucosa clear 09/28/2014 None Full Exam - General 1994 Ears/Nose/Throat oral cavity/pharynx/larynx Overall: hypopharynx benign 09/28/2014 None Full Exam - General 1994 Ears/Nose/Throat oral cavity/pharynx/larynx Overall: no masses 09/28/2014 None Full Exam - General 1994 Respiratory auscultation Overall: breath sounds clear bilaterally 09/28/2014 None Full Exam - General 1994 Respiratory respiratory effort/rhythm Overall: no retractions 09/28/2014 None Full Exam - General 1994 Respiratory respiratory effort/rhythm Overall: normal rate 09/28/2014 None Full Exam - General 1994 Cardiovascular extremities Overall: no clubbing 09/28/2014 None Full Exam - General 1994 Cardiovascular auscultation of heart Overall: regular rate 09/28/2014 None Full Exam - General 1994 Cardiovascular auscultation of heart Overall: normal heart sounds 09/28/2014 None Full Exam - General 1994 Abdomen abdominal exam Overall: no tenderness 09/28/2014 None Full Exam - General 1994 Abdomen abdominal exam Overall: normal bowel sounds 09/28/2014 None Full Exam - General 1994 Lymphatic neck nodes Overall: anterior cervical chain benign 09/28/2014 None Full Exam - General 1994 Lymphatic neck nodes Overall: posterior cervical chain benign 09/28/2014 None Full Exam - General 1994 Musculoskeletal spine, ribs and pelvis Overall: spine benign 09/28/2014 None Full Exam - General 1994 Musculoskeletal spine, ribs and pelvis Overall: sacroiliac joint benign 09/28/2014 None Full Exam - General 1994 Musculoskeletal spine, ribs and pelvis Overall: good posture 09/28/2014 None Full Exam - General 1994 Musculoskeletal head and neck Overall: head atraumatic 09/28/2014 None Full Exam - General 1994 Musculoskeletal head and neck Overall: cervical spine benign 09/28/2014 None Full Exam - General 1994 Integument inspection of skin Overall: few scattered moles, no gross abnormalities 09/28/2014 None Full Exam - General 1994 Neurologic deep tendon reflexes Overall: deep tendon reflexes intact 09/28/2014 None Full Exam - General 1994 Neurologic cranial nerves Overall: crainial nerves 2 - 12 grossly intact 09/28/2014 None Full Exam - General 1994 Psychiatric orientation/consciousness Overall: oriented to person, place and time 09/28/2014 None Full Exam - General 1994 Psychiatric mood and affect Overall: normal mood and affect 09/28/2014 None Full Exam - General 1994 Constitutional general appearance Development: well developed 08/31/2014 None Full Exam - General 1994 Constitutional general appearance Development: appears stated age 0708/31/2014 None Full Exam - General 1994 Eyes conjunctiva/eyelids Eyelid: edema 08/31/2014 mild Full Exam - General 1994 Eyes conjunctiva/eyelids Eyelid: erythema 08/31/2014 mild Full Exam - General 1994 Ears/Nose/Throat external ear Overall: normal appearance 08/31/2014 None Full Exam - General 1994 Ears/Nose/Throat external ear Overall: no masses 08/31/2014 None Full Exam - General 1994 Ears/Nose/Throat otoscopic exam External auditory canal: erythematous 08/31/2014 None Full Exam - General 1994 Ears/Nose/Throat otoscopic exam External auditory canal: a normal exam 08/31/2014 None Full Exam - General 1994 Ears/Nose/Throat otoscopic exam Tympanic membrane: a normal exam 08/31/2014 None Full Exam - General 1994 Neck inspection of neck Overall: normal size 08/31/2014 None Full Exam - General 1994 Neck inspection of neck Overall: normal appearance 08/31/2014 None Full Exam - General 1994 Neck inspection of neck Overall: no masses 08/31/2014 None Full Exam - General 1994 Respiratory auscultation Overall: breath sounds clear bilaterally 08/31/2014 None Full Exam - General 1994 Respiratory respiratory effort/rhythm Overall: no retractions 08/31/2014 None Full Exam - General 1994 Respiratory respiratory effort/rhythm Overall: normal rate 08/31/2014 None Full Exam - General 1994 Cardiovascular auscultation of heart Overall: regular rate 08/31/2014 None Full Exam - General 1994 Cardiovascular auscultation of heart Overall: normal heart sounds 08/31/2014 None Full Exam - General 1994 Cardiovascular auscultation of heart Overall: no murmurs 08/31/2014 None Full Exam - General 1994 Abdomen abdominal exam Overall: no tenderness 08/31/2014 None Full Exam - General 1994 Abdomen abdominal exam Overall: normal bowel sounds 08/31/2014 None Full Exam - General 1994 Integument inspection of skin Location: face 08/31/2014 directly above left eye s mall erythematous macule approx 1.5 cm diameter resembling a pimple. tender to the touch. Skin intact, no open areas, surrounding tissue warm, dry, no redness surrounding. Full Exam - General 1994 Psychiatric orientation/consciousness Overall: oriented to person, place and time 08/31/2014 None Full Exam - General 1994 Psychiatric mood and affect Overall: normal mood and affect 08/31/2014 None Full Exam - General 1994 Constitutional general appearance Overall: well developed 05/29/2014 None Full Exam - General 1994 Constitutional general appearance Overall: in no acute distress 05/29/2014 None Full Exam - General 1994 Constitutional general appearance Overall: well nourished 05/29/2014 None Full Exam - General 1994 Eyes pupils and irises Overall: pupils equal, round, reactive to light and accomodation 05/29/2014 None Full Exam - General 1994 Ears/Nose/Throat otoscopic exam Overall: external auditory canals clear 05/29/2014 None Full Exam - General 1994 Ears/Nose/Throat otoscopic exam Overall: tympanic membranes clear 05/29/2014 None Full Exam - General 1994 Ears/Nose/Throat oral cavity/pharynx/larynx Overall: oral mucosa clear 05/29/2014 None Full Exam - General 1994 Ears/Nose/Throat oral cavity/pharynx/larynx Overall: oropharyngeal mucosa clear 05/29/2014 None Full Exam - General 1994 Ears/Nose/Throat oral cavity/pharynx/larynx Overall: no masses 05/29/2014 None Full Exam - General 1994 Respiratory auscultation Overall: breath sounds clear bilaterally 05/29/2014 None Full Exam - General 1994 Respiratory respiratory effort/rhythm Overall: no retractions 05/29/2014 None Full Exam - General 1994 Respiratory respiratory effort/rhythm Overall: normal rate 05/29/2014 None Full Exam - General 1994 Cardiovascular extremities Overall: no clubbing 05/29/2014 None Full Exam - General 1994 Cardiovascular auscultation of heart Overall: regular rate 05/29/2014 None Full Exam - General 1994 Cardiovascular auscultation of heart Overall: normal heart sounds 05/29/2014 None Full Exam - General 1994 Cardiovascular auscultation of heart Overall: no murmurs 05/29/2014 None Full Exam - General 1994 Abdomen abdominal exam Overall: no tenderness 05/29/2014 None Full Exam - General 1994 Abdomen abdominal exam Overall: normal bowel sounds 05/29/2014 None Full Exam - General 1994 Musculoskeletal head and neck Overall: head atraumatic 05/29/2014 None Full Exam - General 1994 Musculoskeletal head and neck Overall: cervical spine benign 05/29/2014 None Full Exam - General 1994 Neurologic cranial nerves Overall: crainial nerves 2 - 12 grossly intact 05/29/2014 None Full Exam - General 1994 Psychiatric orientation/consciousness Overall: oriented to person, place and time 05/29/2014 None Full Exam - General 1994 Psychiatric mood and affect Overall: normal mood and affect 05/29/2014 None Full Exam - General 1994 Psychiatric mood and affect Mood: happy 05/29/2014 None Full Exam - General 1994 Musculoskeletal lower extremity Inspection - thigh: normal appearance 05/29/2014 None Full Exam - General 1994 Musculoskeletal lower extremity Palpation - thigh: normal on palpation 05/29/2014 None Full Exam - General 1994 Musculoskeletal lower extremity Inspection - knee: fullness in popliteal fossa 05/29/2014 None Full Exam - General 1994 Musculoskeletal lower extremity Inspection - knee: a normal exam 05/29/2014 None Full Exam - General 1994 Musculoskeletal lower extremity Palpation - knee: reyes's cyst 05/29/2014 None Full Exam - General 1994 Musculoskeletal lower extremity ROM - knee: crepitus 05/29/2014 None Full Exam - General 1994 Musculoskeletal lower extremity Stability - knee: a normal exam 05/29/2014 None Full Exam - General 1994 Constitutional general appearance Overall: well developed 11/29/2013 None Full Exam - General 1994 Constitutional general appearance Overall: in no acute distress 11/29/2013 None Full Exam - General 1994 Constitutional general appearance Overall: well nourished 11/29/2013 None Full Exam - General 1994 Eyes pupils and irises Overall: pupils equal, round, reactive to light and accomodation 11/29/2013 None Full Exam - General 1994 Ears/Nose/Throat otoscopic exam Overall: external auditory canals clear 11/29/2013 None Full Exam - General 1994 Ears/Nose/Throat otoscopic exam Overall: tympanic membranes clear 11/29/2013 None Full Exam - General 1994 Ears/Nose/Throat oral cavity/pharynx/larynx Overall: oral mucosa clear 11/29/2013 None Full Exam - General 1994 Ears/Nose/Throat oral cavity/pharynx/larynx Overall: oropharyngeal mucosa clear 11/29/2013 None Full Exam - General 1994 Ears/Nose/Throat oral cavity/pharynx/larynx Overall: no masses 11/29/2013 None Full Exam - General 1994 Respiratory auscultation Overall: breath sounds clear bilaterally 11/29/2013 None Full Exam - General 1994 Respiratory respiratory effort/rhythm Overall: no retractions 11/29/2013 None Full Exam - General 1994 Respiratory respiratory effort/rhythm Overall: normal rate 11/29/2013 None Full Exam - General 1994 Cardiovascular extremities Overall: no clubbing 11/29/2013 None Full Exam - General 1994 Cardiovascular auscultation of heart Overall: regular rate 11/29/2013 None Full Exam - General 1994 Cardiovascular auscultation of heart Overall: normal heart sounds 11/29/2013 None Full Exam - General 1994 Cardiovascular auscultation of heart Overall: no murmurs 11/29/2013 None Full Exam - General 1994 Abdomen abdominal exam Overall: no tenderness 11/29/2013 None Full Exam - General 1994 Abdomen abdominal exam Overall: normal bowel sounds 11/29/2013 None Full Exam - General 1994 Musculoskeletal head and neck Overall: head atraumatic 11/29/2013 None Full Exam - General 1994 Musculoskeletal head and neck Overall: cervical spine benign 11/29/2013 None Full Exam - General 1994 Neurologic cranial nerves Overall: crainial nerves 2 - 12 grossly intact 11/29/2013 None Full Exam - General 1994 Psychiatric orientation/consciousness Overall: oriented to person, place and time 11/29/2013 None Full Exam - General 1994 Psychiatric mood and affect Overall: normal mood and affect 11/29/2013 None Full Exam - General 1994 Psychiatric mood and affect Mood: happy 11/29/2013 None Full Exam - General 1994 Constitutional general appearance Development: well developed 10/04/2013 None Full Exam - General 1994 Constitutional general appearance Development: appears stated age 0810/04/2013 None Full Exam - General 1994 Eyes conjunctiva/eyelids Eyelid: edema 10/04/2013 None Full Exam - General 1994 Eyes conjunctiva/eyelids Eyelid: erythema 10/04/2013 - incised - - minimal di scharge Full Exam - General 1994 Constitutional general appearance Overall: well developed 05/31/2013 None Full Exam - General 1994 Constitutional general appearance Overall: in no acute distress 05/31/2013 None Full Exam - General 1994 Constitutional general appearance Overall: well nourished 05/31/2013 None Full Exam - General 1994 Eyes pupils and irises Overall: pupils equal, round, reactive to light and accomodation 05/31/2013 None Full Exam - General 1994 Ears/Nose/Throat otoscopic exam Overall: external auditory canals clear 05/31/2013 None Full Exam - General 1994 Ears/Nose/Throat otoscopic exam Overall: tympanic membranes clear 05/31/2013 None Full Exam - General 1994 Ears/Nose/Throat oral cavity/pharynx/larynx Overall: oral mucosa clear 05/31/2013 None Full Exam - General 1994 Ears/Nose/Throat oral cavity/pharynx/larynx Overall: oropharyngeal mucosa clear 05/31/2013 None Full Exam - General 1994 Ears/Nose/Throat oral cavity/pharynx/larynx Overall: no masses 05/31/2013 None Full Exam - General 1994 Respiratory auscultation Overall: breath sounds clear bilaterally 05/31/2013 None Full Exam - General 1994 Respiratory respiratory effort/rhythm Overall: no retractions 05/31/2013 None Full Exam - General 1994 Respiratory respiratory effort/rhythm Overall: normal rate 05/31/2013 None Full Exam - General 1994 Cardiovascular extremities Overall: no clubbing 05/31/2013 None Full Exam - General 1994 Cardiovascular auscultation of heart Overall: regular rate 05/31/2013 None Full Exam - General 1994 Cardiovascular auscultation of heart Overall: normal heart sounds 05/31/2013 None Full Exam - General 1994 Cardiovascular auscultation of heart Overall: no murmurs 05/31/2013 None Full Exam - General 1994 Abdomen abdominal exam Overall: no tenderness 05/31/2013 None Full Exam - General 1994 Abdomen abdominal exam Overall: normal bowel sounds 05/31/2013 None Full Exam - General 1994 Musculoskeletal head and neck Overall: head atraumatic 05/31/2013 None Full Exam - General 1994 Musculoskeletal head and neck Overall: cervical spine benign 05/31/2013 None Full Exam - General 1994 Neurologic cranial nerves Overall: crainial nerves 2 - 12 grossly intact 05/31/2013 None Full Exam - General 1994 Psychiatric orientation/consciousness Overall: oriented to person, place and time 05/31/2013 None Full Exam - General 1994 Psychiatric mood and affect Overall: normal mood and affect 05/31/2013 None Full Exam - General 1994 Psychiatric mood and affect Mood: happy 05/31/2013 None Full Exam - General 1994 Constitutional general appearance Overall: well developed 11/30/2012 None Full Exam - General 1994 Constitutional general appearance Overall: in no acute distress 11/30/2012 None Full Exam - General 1994 Constitutional general appearance Overall: well nourished 11/30/2012 None Full Exam - General 1994 Eyes pupils and irises Overall: pupils equal, round, reactive to light and accomodation 11/30/2012 None Full Exam - General 1995 Ears/Nose/Throat otoscopic exam Overall: external auditory canals clear 11/30/2012 None Full Exam - General 1994 Ears/Nose/Throat otoscopic exam Overall: tympanic membranes clear 11/30/2012 None Full Exam - General 1994 Ears/Nose/Throat oral cavity/pharynx/larynx Overall: oral mucosa clear 11/30/2012 None Full Exam - General 1994 Ears/Nose/Throat oral cavity/pharynx/larynx Overall: oropharyngeal mucosa clear 11/30/2012 None Full Exam - General 1994 Ears/Nose/Throat oral cavity/pharynx/larynx Overall: no masses 11/30/2012 None Full Exam - General 1994 Neck thyroid Overall: normal size None Full Exam - General 1994 Neck thyroid Overall: normal consistency 11/30/2012 None Full Exam - General 1994 Neck thyroid Overall: nontender 11/30 None Full Exam - General 1994 Neck thyroid Overall: no mass lesions 11/30/2012 None Full Exam - General 1994 Respiratory auscultation Overall: breath sounds clear bilaterally 11/30/2012 None Full Exam - General 1994 Respiratory respiratory effort/rhythm Overall: no retractions 11/30/2012 None Full Exam - General 1994 Respiratory respiratory effort/rhythm Overall: normal rate 11/30/2012 None Full Exam - General 1994 Cardiovascular extremities Overall: no clubbing 11/30/2012 None Full Exam - General 1994 Cardiovascular auscultation of heart Overall: regular rate 11/30/2012 None Full Exam - General 1994 Cardiovascular auscultation of heart Overall: normal heart sounds 11/30/2012 None Full Exam - General 1994 Cardiovascular auscultation of heart Overall: no murmurs 11/30/2012 None Full Exam - General 1994 Chest/Breast breast and axillae palpation Overall: breasts non- tender 11/30/2012 None Full Exam - General 1995 Chest/Breast breast and axillae palpation Overall: axillae non- tender 11/30/2012 None Full Exam - General 1995 Chest/Breast breast and axillae palpation Overall: no nipple discharge 11/30/2012 None Full Exam - General 1995 Chest/Breast breast/chest inspection Overall: breasts to symmetric and without lesions 11/30/2012 None Full Exam - General 1994 Chest/Breast breast/chest inspection Overall: normal chest shape 11/30/2012 None Full Exam - General 1994 Abdomen abdominal exam Overall: no tenderness 11/30/2012 None Full Exam - General 1994 Abdomen abdominal exam Overall: normal bowel sounds 11/30/2012 None Full Exam - General 1994 Abdomen liver and spleen exam Overall: no hepatosplenomegaly 11/30/2012 None Full Exam - General 1994 Abdomen liver and spleen exam Overall: no stigmata of chronic liver disease 11/30/2012 None Full Exam - General 1994 Genitourinary uterus Overall: surgically absent 11/30/2012 None Full Exam - General 1994 Genitourinary cervix Overall: surgically absent 11/30/2012 None Full Exam - General 1994 Genitourinary labia and vagina Overall: normal hair distribution 11/30/2012 None Full Exam - General 1994 Genitourinary labia and vagina Overall: no lesions 11/30/2012 None Full Exam - General 1994 Genitourinary adnexa/parametria Overall: surgically absent 11/30/2012 None Full Exam - General 1994 Genitourinary urethra Overall: no masses 11/30/2012 None Full Exam - General 1994 Musculoskeletal head and neck Overall: head atraumatic 11/30/2012 None Full Exam - General 1994 Musculoskeletal head and neck Overall: cervical spine benign 11/30/2012 None Full Exam - General 1994 Neurologic gait Overall: no ataxia, no unsteadiness 11/30/2012 None Full Exam - General 1994 Neurologic cranial nerves Overall: crainial nerves 2 - 12 grossly intact 11/30/2012 None Full Exam - General 1994 Psychiatric orientation/consciousness Overall: oriented to person, place and time 11/30/2012 None Full Exam - General 1994 Psychiatric mood and affect Overall: normal mood and affect 11/30/2012 None Full Exam - General 1994 Psychiatric mood and affect Mood: happy 11/30/2012 None Full Exam - General 1994 Genitourinary labia and vagina Vagina: lesions present 11/30/2012 very small amount of gran ulation tissue at the 10 oclock position. Full Exam - General 1994 Constitutional general appearance Overall: well developed 05/31/2012 None Full Exam - General 1994 Constitutional general appearance Overall: in no acute distress 05/31/2012 None Full Exam - General 1994 Constitutional general appearance Overall: well nourished 05/31/2012 None Full Exam - General 1994 Eyes pupils and irises Overall: pupils equal, round, reactive to light and accomodation 05/31/2012 None Full Exam - General 1994 Ears/Nose/Throat otoscopic exam Overall: external auditory canals clear 05/31/2012 None Full Exam - General 1994 Ears/Nose/Throat otoscopic exam Overall: tympanic membranes clear 05/31/2012 None Full Exam - General 1994 Ears/Nose/Throat oral cavity/pharynx/larynx Overall: oral mucosa clear 05/31/2012 None Full Exam - General 1994 Ears/Nose/Throat oral cavity/pharynx/larynx Overall: oropharyngeal mucosa clear 05/31/2012 None Full Exam - General 1994 Ears/Nose/Throat oral cavity/pharynx/larynx Overall: no masses 05/31/2012 None Full Exam - General 1994 Neck thyroid Overall: normal size None Full Exam - General 1994 Neck thyroid Overall: normal consistency 05/31/2012 None Full Exam - General 1994 Neck thyroid Overall: nontender 05/31 None Full Exam - General 1994 Neck thyroid Overall: no mass lesions 05/31/2012 None Full Exam - General 1994 Respiratory auscultation Overall: breath sounds clear bilaterally 05/31/2012 None Full Exam - General 1994 Respiratory respiratory effort/rhythm Overall: no retractions 05/31/2012 None Full Exam - General 1994 Respiratory respiratory effort/rhythm Overall: normal rate 05/31/2012 None Full Exam - General 1994 Cardiovascular auscultation of heart Overall: regular rate 05/31/2012 None Full Exam - General 1994 Cardiovascular auscultation of heart Overall: normal heart sounds 05/31/2012 None Full Exam - General 1994 Cardiovascular auscultation of heart Overall: no murmurs 05/31/2012 None Full Exam - General 1994 Cardiovascular extremities Overall: no clubbing 05/31/2012 None Full Exam - General 1994 Chest/Breast breast and axillae palpation Overall: breasts non- tender 05/31/2012 None Full Exam - General 1994 Chest/Breast breast and axillae palpation Overall: axillae non- tender 05/31/2012 None Full Exam - General 1994 Chest/Breast breast and axillae palpation Overall: no nipple discharge 05/31/2012 None Full Exam - General 1994 Chest/Breast breast/chest inspection Overall: breasts to symmetric and without lesions 05/31/2012 None Full Exam - General 1994 Chest/Breast breast/chest inspection Overall: normal chest shape 05/31/2012 None Full Exam - General 1994 Abdomen abdominal exam Overall: no tenderness 05/31/2012 None Full Exam - General 1994 Abdomen abdominal exam Overall: normal bowel sounds 05/31/2012 None Full Exam - General 1994 Abdomen liver and spleen exam Overall: no hepatosplenomegaly 05/31/2012 None Full Exam - General 1994 Abdomen liver and spleen exam Overall: no stigmata of chronic liver disease 05/31/2012 None Full Exam - General 1994 Genitourinary uterus Overall: surgically absent 05/31/2012 None Full Exam - General 1994 Genitourinary cervix Overall: surgically absent 05/31/2012 None Full Exam - General 1994 Genitourinary labia and vagina Overall: normal hair distribution 05/31/2012 None Full Exam - General 1994 Genitourinary labia and vagina Overall: no lesions 05/31/2012 None Full Exam - General 1994 Genitourinary adnexa/parametria Overall: surgically absent 05/31/2012 None Full Exam - General 1994 Genitourinary urethra Overall: no masses 05/31/2012 None Full Exam - General 1994 Musculoskeletal head and neck Overall: head atraumatic 05/31/2012 None Full Exam - General 1994 Musculoskeletal head and neck Overall: cervical spine benign 05/31/2012 None Full Exam - General 1994 Neurologic gait Overall: no ataxia, no unsteadiness 05/31/2012 None Full Exam - General 1994 Neurologic cranial nerves Overall: crainial nerves 2 - 12 grossly intact 05/31/2012 None Full Exam - General 1994 Psychiatric orientation/consciousness Overall: oriented to person, place and time 05/31/2012 None Full Exam - General 1994 Psychiatric mood and affect Overall: normal mood and affect 05/31/2012 None Full Exam - General 1994 Psychiatric mood and affect Mood: happy 05/31/2012 None Full Exam - General 1994 Neck thyroid Overall: normal consistency 11/25/2011 None Full Exam - General 1994 Neck thyroid Overall: nontender 11/24 None Full Exam - General 1994 Neck thyroid Overall: no mass lesions 11/25/2011 None Full Exam - General 1994 Respiratory auscultation Overall: breath sounds clear bilaterally 11/25/2011 None Full Exam - General 1994 Respiratory respiratory effort/rhythm Overall: no retractions 11/25/2011 None Full Exam - General 1995 Respiratory respiratory effort/rhythm Overall: normal rate 11/25/2011 None Full Exam - General 1994 Cardiovascular extremities Overall: no clubbing 11/25/2011 None Full Exam - General 1994 Cardiovascular auscultation of heart Overall: regular rate 11/25/2011 None Full Exam - General 1994 Cardiovascular auscultation of heart Overall: normal heart sounds 11/25/2011 None Full Exam - General 1994 Cardiovascular auscultation of heart Overall: no murmurs 11/25/2011 None Full Exam - General 1994 Abdomen abdominal exam Overall: normal bowel sounds 11/25/2011 None Full Exam - General 1994 Genitourinary uterus Overall: surgically absent 11/25/2011 None Full Exam - General 1994 Genitourinary cervix Overall: surgically absent 11/25/2011 None Full Exam - General 1994 Genitourinary labia and vagina Overall: normal hair distribution 11/25/2011 None Full Exam - General 1994 Constitutional general appearance Overall: well developed 11/25/2011 None Full Exam - General 1994 Constitutional general appearance Overall: in no acute distress 11/25/2011 None Full Exam - General 1994 Constitutional general appearance Overall: well nourished 11/25/2011 None Full Exam - General 1994 Eyes pupils and irises Overall: pupils equal, round, reactive to light and accomodation 11/25/2011 None Full Exam - General 1994 Ears/Nose/Throat otoscopic exam Overall: external auditory canals clear 11/25/2011 None Full Exam - General 1994 Ears/Nose/Throat otoscopic exam Overall: tympanic membranes clear 11/25/2011 None Full Exam - General 1994 Ears/Nose/Throat oral cavity/pharynx/larynx Overall: oral mucosa clear 11/25/2011 None Full Exam - General 1994 Ears/Nose/Throat oral cavity/pharynx/larynx Overall: oropharyngeal mucosa clear 11/25/2011 None Full Exam - General 1995 Ears/Nose/Throat oral cavity/pharynx/larynx Overall: no masses 11/25/2011 None Full Exam - General 1994 Neck thyroid Overall: normal size 10/2011 None Full Exam - General 1994 Genitourinary labia and vagina Overall: no lesions 11/25/2011 None Full Exam - General 1994 Genitourinary adnexa/parametria Overall: surgically absent 11/25/2011 None Full Exam - General 1994 Genitourinary urethra Overall: no masses 11/25/2011 None Full Exam - General 1994 Musculoskeletal head and neck Overall: head atraumatic 11/25/2011 None Full Exam - General 1994 Musculoskeletal head and neck Overall: cervical spine benign 11/25/2011 None Full Exam - General 1994 Psychiatric orientation/consciousness Overall: oriented to person, place and time 11/25/2011 None Full Exam - General 1994 Psychiatric mood and affect Overall: normal mood and affect 11/25/2011 None Full Exam - General 1994 Psychiatric mood and affect Mood: happy 11/25/2011 None Full Exam - General 1994 Abdomen abdominal exam Overall: no tenderness 11/25/2011 None Full Exam - General 1994 Ears/Nose/Throat oral cavity/pharynx/larynx Overall: oropharyngeal mucosa clear 08/21/2011 None Full Exam - General 1994 Ears/Nose/Throat oral cavity/pharynx/larynx Overall: no masses 08/21/2011 None Full Exam - General 1994 Neck thyroid Overall: normal size 06/2011 None Full Exam - General 1994 Neck thyroid Overall: normal consistency 08/21/2011 None Full Exam - General 1994 Neck thyroid Overall: nontender 08/20 None Full Exam - General 1994 Neck thyroid Overall: no mass lesions 08/21/2011 None Full Exam - General 1994 Respiratory auscultation Overall: breath sounds clear bilaterally 08/21/2011 None Full Exam - General 1994 Respiratory respiratory effort/rhythm Overall: no retractions 08/21/2011 None Full Exam - General 1994 Respiratory respiratory effort/rhythm Overall: normal rate 08/21/2011 None Full Exam - General 1994 Cardiovascular auscultation of heart Overall: regular rate 08/21/2011 None Full Exam - General 1994 Cardiovascular auscultation of heart Overall: normal heart sounds 08/21/2011 None Full Exam - General 1994 Cardiovascular auscultation of heart Overall: no murmurs 08/21/2011 None Full Exam - General 1994 Cardiovascular extremities Overall: no clubbing 08/21/2011 None Full Exam - General 1994 Abdomen abdominal exam Overall: no tenderness 08/21/2011 None Full Exam - General 1994 Constitutional general appearance Overall: well developed 08/21/2011 None Full Exam - General 1994 Constitutional general appearance Overall: in no acute distress 08/21/2011 None Full Exam - General 1995 Constitutional general appearance Overall: well nourished 08/21/2011 None Full Exam - General 1994 Eyes pupils and irises Overall: pupils equal, round, reactive to light and accomodation 08/21/2011 None Full Exam - General 1995 Ears/Nose/Throat otoscopic exam Overall: external auditory canals clear 08/21/2011 None Full Exam - General 1995 Ears/Nose/Throat otoscopic exam Overall: tympanic membranes clear 08/21/2011 None Full Exam - General 1995 Ears/Nose/Throat oral cavity/pharynx/larynx Overall: oral mucosa clear 08/21/2011 None Full Exam - General 1994 Abdomen abdominal exam Overall: normal bowel sounds 08/21/2011 None Full Exam - General 1994 Abdomen liver and spleen exam Overall: no hepatosplenomegaly 08/21/2011 None Full Exam - General 1994 Abdomen liver and spleen exam Overall: no stigmata of chronic liver disease 08/21/2011 None Full Exam - General 1994 Genitourinary uterus Overall: surgically absent 08/21/2011 None Full Exam - General 1994 Genitourinary cervix Overall: surgically absent 08/21/2011 None Full Exam - General 1994 Genitourinary labia and vagina Overall: normal hair distribution 08/21/2011 None Full Exam - General 1994 Genitourinary labia and vagina Overall: no lesions 08/21/2011 None Full Exam - General 1994 Genitourinary adnexa/parametria Overall: surgically absent 08/21/2011 None Full Exam - General 1994 Genitourinary urethra Overall: no masses 08/21/2011 None Full Exam - General 1994 Musculoskeletal head and neck Overall: head atraumatic 08/21/2011 None Full Exam - General 1994 Musculoskeletal head and neck Overall: cervical spine benign 08/21/2011 None Full Exam - General 1994 Psychiatric orientation/consciousness Overall: oriented to person, place and time 08/21/2011 None Full Exam - General 1994 Psychiatric mood and affect Overall: normal mood and affect 08/21/2011 None Full Exam - General 1994 Psychiatric mood and affect Mood: happy 08/21/2011 None Full Exam - General 1994 Respiratory auscultation Overall: breath sounds clear bilaterally 04/14/2011 None Full Exam - General 1994 Respiratory respiratory effort/rhythm Overall: normal rate 04/14/2011 None Full Exam - General 1994 Respiratory respiratory effort/rhythm Overall: no retractions 04/14/2011 None Full Exam - General 1994 Cardiovascular auscultation of heart Overall: regular rate 04/14/2011 None Full Exam - General 1994 Cardiovascular auscultation of heart Overall: normal heart sounds 04/14/2011 None Full Exam - General 1994 Cardiovascular auscultation of heart Overall: no murmurs 04/14/2011 None Full Exam - General 1994 Cardiovascular extremities Overall: no clubbing 04/14/2011 None Full Exam - General 1994 Chest/Breast breast and axillae palpation Overall: breasts non- tender 04/14/2011 None Full Exam - General 1994 Chest/Breast breast and axillae palpation Overall: axillae non- tender 04/14/2011 None Full Exam - General 1994 Chest/Breast breast and axillae palpation Overall: no nipple discharge 04/14/2011 None Full Exam - General 1994 Chest/Breast breast/chest inspection Overall: normal chest shape 04/14/2011 None Full Exam - General 1994 Chest/Breast breast/chest inspection Overall: breasts to symmetric and without lesions 04/14/2011 None Full Exam - General 1994 Abdomen abdominal exam Overall: no tenderness 04/14/2011 None Full Exam - General 1994 Abdomen abdominal exam Overall: normal bowel sounds 04/14/2011 None Full Exam - General 1994 Constitutional general appearance Overall: well nourished 04/14/2011 None Full Exam - General 1994 Constitutional general appearance Overall: well developed 04/14/2011 None Full Exam - General 1994 Constitutional general appearance Overall: in no acute distress 04/14/2011 None Full Exam - General 1994 Eyes pupils and irises Overall: pupils equal, round, reactive to light and accomodation 04/14/2011 None Full Exam - General 1994 Ears/Nose/Throat otoscopic exam Overall: tympanic membranes clear 04/14/2011 None Full Exam - General 1994 Ears/Nose/Throat otoscopic exam Overall: external auditory canals clear 04/14/2011 None Full Exam - General 1994 Ears/Nose/Throat oral cavity/pharynx/larynx Overall: oropharyngeal mucosa clear 04/14/2011 None Full Exam - General 1995 Ears/Nose/Throat oral cavity/pharynx/larynx Overall: no masses 04/14/2011 None Full Exam - General 1994 Ears/Nose/Throat oral cavity/pharynx/larynx Overall: oral mucosa clear 04/14/2011 None Full Exam - General 1995 Neck thyroid Overall: nontender 04/14 None Full Exam - General 1995 Neck thyroid Overall: normal size None Full Exam - General 1994 Neck thyroid Overall: no mass lesions 04/14/2011 None Full Exam - General 1995 Neck thyroid Overall: normal consistency 04/14/2011 None Full Exam - General 1995 Genitourinary adnexa/parametria Overall: surgically absent 04/14/2011 None Full Exam - General 1995 Genitourinary cervix Overall: surgically absent 04/14/2011 None Full Exam - General 1995 Abdomen liver and spleen exam Overall: no hepatosplenomegaly 04/14/2011 None Full Exam - General 1995 Abdomen liver and spleen exam Overall: no stigmata of chronic liver disease 04/14/2011 None Full Exam - General 1995 Psychiatric orientation/consciousness Overall: oriented to person, place and time 04/14/2011 None Full Exam - General 1994 Psychiatric mood and affect Mood: happy 04/14/2011 None Full Exam - General 1994 Psychiatric mood and affect Overall: normal mood and affect 04/14/2011 None Full Exam - General 1994 Neurologic gait Overall: no ataxia, no unsteadiness 04/14/2011 None Full Exam - General 1994 Neurologic cranial nerves Overall: crainial nerves 2 - 12 grossly intact 04/14/2011 None Full Exam - General 1994 Musculoskeletal head and neck Overall: cervical spine benign 04/14/2011 None Full Exam - General 1994 Musculoskeletal head and neck Overall: head atraumatic 04/14/2011 None Full Exam - General 1994 Genitourinary uterus Overall: surgically absent 04/14/2011 None Full Exam - General 1994 Genitourinary labia and vagina Overall: normal hair distribution 04/14/2011 None Full Exam - General 1994 Genitourinary labia and vagina Overall: no lesions 04/14/2011 None Full Exam - General 1994 Genitourinary urethra Overall: no masses 04/14/2011 None Full Exam - General Constitutional general appearance Overall: well nourished 10/14/2010 None Full Exam - General Constitutional general appearance Overall: well developed 10/14/2010 None Full Exam - General Constitutional general appearance Overall: in no acute distress 10/14/2010 None Full Exam - General Ears/Nose/Throat otoscopic exam Overall: external auditory canals clear 10/14/2010 None Full Exam - General Musculoskeletal gait and station Overall: normal gait 10/14/2010 None Full Exam - General Ears/Nose/Throat otoscopic exam Overall: tympanic membranes clear 10/14/2010 None Full Exam - General Ears/Nose/Throat oral cavity/pharynx/larynx Overall: oral mucosa clear 10/14/2010 None Full Exam - General Ears/Nose/Throat oral cavity/pharynx/larynx Overall: oropharyngeal mucosa clear 10/14/2010 None Full Exam - General Ears/Nose/Throat lips/teeth/gingiva Overall: benign lips 10/14/2010 None Full Exam - General Musculoskeletal gait and station Overall: normal station 10/14/2010 None Full Exam - General Psychiatric orientation/consciousness Overall: oriented to person, place and time 10/14/2010 None Full Exam - General Psychiatric mood and affect Overall: normal mood and affect 10/14/2010 None Full Exam - General Ears/Nose/Throat lips/teeth/gingiva Overall: normal dentition 10/14/2010 None Full Exam - General Ears/Nose/Throat lips/teeth/gingiva Overall: benign gingiva 10/14/2010 None Full Exam - General Cardiovascular auscultation of heart Overall: regular rate 10/14/2010 None Full Exam - General Cardiovascular auscultation of heart Overall: normal heart sounds 10/14/2010 None Full Exam - General Cardiovascular auscultation of heart Overall: no murmurs 10/14/2010 None Full Exam - General Chest/Breast breast/chest inspection Overall: normal chest shape 10/14/2010 None Full Exam - General Respiratory auscultation Overall: breath sounds clear bilater ally 10/14/2010 None Full Exam - General Respiratory respiratory effort/rhythm Overall: normal rate 10/14/2010 None Full Exam - General Respiratory respiratory effort/rhythm Overall: no retractions 10/14/2010 None Procedures Procedure Codes Date FLU VAC NO PRSV 4 VA L 3 YRS+ CPT-4: 01085 11/01/2018 IMMUNIZATION ADMIN CPT- 4: 17190 11/01/2018 TRIAMCINOLONE ACET I [place] NOS CPT-4: J3301 07/08/2018 THER/PROPH/DIAG INJ SC/IM CPT-4: 81081 07/08/2018 FLU VAC NO PRSV 4 VA L 3 YRS+ CPT-4: 02545 10/23/2017 ADMIN INFLUENZA VIRU S VAC CPT-4: G0008 10/23/2017 THER/PROPH/DIAG INJ SC/IM CPT-4: 47709 03/11/2017 TRIAMCINOLONE ACET I [place] NOS CPT-4: J3301 03/11/2017 FLU VAC NO PRSV 4 VA L 3 YRS+ CPT-4: 99050 12/09/2016 ADMIN INFLUENZA VIRU S VAC CPT-4: G0008 12/09/2016 URINALYSIS NONAUTO W /O SCOPE CPT-4: 69362 11/13/2015 IMMUNIZATION ADMIN CPT- 4: 57527 11/13/2015 FLU VACC 4 [place] 3 YRS PLUS IM SNOMED CT: [id number] CPT-4: 32452 11/13/2015 PPPS, SUBSEQ VISIT CPT- 4: G0439 10/10/2015 IMMUNIZATION ADMIN CPT- 4: 43374 11/25/2011 Influenza Virus Vacc ine, Split Virus, >3 Yrs, IM CPT-4: 37176 11/25/2011 ADMIN INFLUENZA VIRU S VAC CPT-4: G0008 12/19/2010 FLULAVAL VACC, 3 YRS & >, IM CPT-4: Q2036 12/19/2010 Vital Signs Date Vital 11/01/2018 Blood Pressure 1: 138/88 Code: 8480-6 BMI: 33.7 Code: 33290-5 Heart Rate 1: 75 bpm Height: 5'3" SpO2: 96% Weight: 190 lbs 09/06/2018 Blood Pressure 1: 118/70 Code: 8480-6 BMI: 34.4 Code: 49370-2 Heart Rate 1: 70 bpm Height: 5'3" SpO2: 97% Weight: 194 lbs 07/08/2018 Blood Pressure 1: 132/76 Code: 8480-6 BMI: 34.7 Code: 76414-1 Heart Rate 1: 72 bpm Height: 5'3" SpO2: 98% Weight: 196 lbs 02/11/2018 Blood Pressure 1: 130/70 Code: 8480-6 BMI: 35.1 Code: 19341-8 Heart Rate 1: 64 bpm Height: 5'3" SpO2: 95% Weight: 198 lbs 10/23/2017 Blood Pressure 1: 124/66 Code: 8480-6 BMI: 34.7 Code: 50524-9 Heart Rate 1: 67 bpm Height: 5'3" SpO2: 95% Weight: 196 lbs 08/13/2017 Blood Pressure 1: 128/82 Code: 8480-6 BMI: 34.7 Code: 31179-6 Heart Rate 1: 74 bpm Height: 5'3" SpO2: 95% Weight: 196 lbs 07/16/2017 Blood Pressure 1: 126/80 Code: 8480-6 BMI: 34.7 Code: 39517-5 Heart Rate 1: 62 bpm Height: 5'3" SpO2: 96% Weight: 196 lbs 06/29/2017 Blood Pressure 1: 122/70 Code: 8480-6 BMI: 35.1 Code: 16100-8 Heart Rate 1: 74 bpm Height: 5'3" SpO2: 94% Weight: 198 lbs 05/01/2017 Blood Pressure 1: 120/68 Code: 8480-6 BMI: 35.1 Code: 55061-0 Heart Rate 1: 76 bpm Height: 5'3" SpO2: 98% Weight: 198 lbs 04/24/2017 Blood Pressure 1: 142/80 Code: 8480-6 BMI: 35.1 Code: 84213-7 Heart Rate 1: 75 bpm Height: 5'3" SpO2: 98% Weight: 198 lbs 03/11/2017 Blood Pressure 1: 128/74 Code: 8480-6 BMI: 34.9 Code: 16464-7 Heart Rate 1: 68 bpm Height: 5'3" SpO2: 96% Weight: 197 lbs 02/19/2017 Blood Pressure 1: 108/62 Code: 8480-6 BMI: 34.9 Code: 73847-8 Heart Rate 1: 74 bpm Height: 5'3" SpO2: 97% Weight: 197 lbs 10/16/2016 Blood Pressure 1: 130/72 Code: 8480-6 BMI: 34.5 Code: 29390-0 Heart Rate 1: 65 bpm Height: 5'3" SpO2: 978% Weight: 194 lbs 8 oz 06/19/2016 Blood Pressure 1: 134/80 Code: 8480-6 BMI: 32.9 Code: 23331-8 Heart Rate 1: 69 bpm Height: 5'3" SpO2: 98% Weight: 186 lbs 03/13/2016 Blood Pressure 1: 118/74 Code: 8480-6 BMI: 32.4 Code: 07000-5 Heart Rate 1: 71 bpm Height: 5'3" SpO2: 96% Weight: 183 lbs 02/22/2016 Blood Pressure 1: 116/64 Code: 8480-6 BMI: 31.5 Code: 86156-3 Heart Rate 1: 71 bpm Height: 5'3" SpO2: 99% Weight: 178 lbs 12/18/2015 Blood Pressure 1: 94/60 Code: 8480-6 BMI: 31.1 Code: 41732-2 Heart Rate 1: 72 bpm Height: 5'3" SpO2: 99% Weight: 175 lbs 8 oz 11/13/2015 Blood Pressure 1: 104/64 Code: 8480-6 BMI: 32.4 Code: 24635-1 Heart Rate 1: 66 bpm Height: 5'3" SpO2: 97% Weight: 183 lbs 10/10/2015 Blood Pressure 1: 112/67 Code: 8480-6 BMI: 32.6 Code: 56553-2 Heart Rate 1: 78 bpm Height: 5'3" SpO2: 97% Weight: 184 lbs 07/23/2015 Blood Pressure 1: 10864 Code: 8480-6 Blood Pressure 1: 10464 Code: 8480-6 Heart Rate 1: 70 bpm SpO2: 97% 07/10/2015 Blood Pressure 1: 11864 Code: 8480-6 BMI: 32.6 Code: 00686-7 Heart Rate 1: 61 bpm Height: 5'3" SpO2: 98% Weight: 184 lbs 06/05/2015 Blood Pressure 1: 164/70 Code: 8480-6 BMI: 32.4 Code: 17939-4 Heart Rate 1: 68 bpm Height: 5'3" SpO2: 97% Weight: 183 lbs 05/01/2015 Blood Pressure 1: 150/78 Code: 8480-6 BMI: 32.4 Code: 48642-8 Heart Rate 1: 87 bpm Height: 5'3" SpO2: 95% Weight: 183 lbs 04/09/2015 Blood Pressure 1: 158/68 Code: 8480-6 BMI: 32.9 Code: 46249-1 Heart Rate 1: 78 bpm Height: 5'3" SpO2: 97% Weight: 186 lbs 03/26/2015 Blood Pressure 1: 140/76 Code: 8480-6 BMI: 33.7 Code: 28413-2 Heart Rate 1: 64 bpm Height: 5'3" SpO2: 98% Weight: 190 lbs 11/17/2014 Blood Pressure 1: 146/80 Code: 8480-6 BMI: 33.5 Code: 60411-8 Heart Rate 1: 60 bpm Height: 5'3" SpO2: 97% Weight: 189 lbs 10/31/2014 Blood Pressure 1: 130/72 Code: 8480-6 BMI: 33.7 Code: 26347-4 Heart Rate 1: 59 bpm Height: 5'3" SpO2: 96% Weight: 190 lbs 09/28/2014 Blood Pressure 1: 130/86 Code: 8480-6 Blood Pressure 1: 130/72 Code: 8480-6 BMI: 33.7 Code: 70958-8 Heart Rate 1: 58 bpm Height: 5'3" SpO2: 97% Weight: 190 lbs 08/31/2014 Blood Pressure 1: 122/84 Code: 8480-6 BMI: 34.0 Code: 57785-7 Height: 5'3" Weight: 192 lbs 05/29/2014 Blood Pressure 1: 120/68 Code: 8480-6 BMI: 33.8 Code: 52281-6 Heart Rate 1: 87 bpm Height: 5'3" SpO2: 97% Weight: 191 lbs 11/29/2013 Blood Pressure 1: 138/76 Code: 8480-6 BMI: 33.8 Code: 37556-1 Heart Rate 1: 68 bpm Height: 5'3" Weight: 191 lbs 10/04/2013 Blood Pressure 1: 140/88 Code: 8480-6 BMI: 33.1 Code: 46120-3 Heart Rate 1: 72 bpm Height: 5'3" Weight: 187 lbs 05/31/2013 Blood Pressure 1: 132/84 Code: 8480-6 Heart Rate 1: 60 bpm Weight: 191 lbs 11/30/2012 Blood Pressure 1: 128/72 Code: 8480-6 BMI: 33.5 Code: 84818-1 Heart Rate 1: 72 bpm Height: 5'3" Weight: 189 lbs 05/31/2012 Blood Pressure 1: 126/66 Code: 8480-6 BMI: 35.1 Code: 84368-7 Heart Rate 1: 72 bpm Height: 5'3" Weight: 198 lbs 11/25/2011 Blood Pressure 1: 156/80 Code: 8480-6 BMI: 34.2 Code: 73632-3 Heart Rate 1: 64 bpm Height: 5'3" Weight: 196 lbs 08/21/2011 Blood Pressure 1: 118/78 Code: 8480-6 Heart Rate 1: 68 bpm Respiratory Rate: 16 bpm Weight: 184 lbs 04/14/2011 Blood Pressure 1: 128/68 Code: 8480-6 BMI: 34.2 Code: 29144-2 Heart Rate 1: 56 bpm Height: 5'3" Respiratory Rate: 20 bpm Weight: 193 lbs 10/14/2010 Blood Pressure 1: 124/72 Code: 8480-6 BMI: 30.9 Code: 56777-0 Heart Rate 1: 60 bpm Height: 5'4" Respiratory Rate: 12 bpm Weight: 180 lbs Functional Status No Functional Status data History of Present Illness Symptom Name Status Resu lt Effective Date Notes Location on the abdomen 11/01/2018 None Quality firm 11/01/2018 None Onset and Resolution o ngoing 11/01/2018 None Onset of Symptom 2 yea rs ago 11/01/2018 None Frequency of Episodes daily 11/01/2018 None Pertinent Findings red ness 11/01/2018 None Pertinent Findings Den ies pain 11/01/2018 None Pertinent Findings dra campos 11/01/2018 at times Location deltoid-Lt 11/01/2018 None Onset and Resolution o ngoing 09/06/2018 None Onset of Symptom durin g adulthood 09/06/2018 None Blood Pressure Values not checking blood pressure at home 09/06/2018 None Alleviating Factors me dication 09/06/2018 None Pertinent Findings Den ies dizziness 09/06/2018 None Pertinent Findings Den ies dyspnea 09/06/2018 None Pertinent Findings Den ies edema 09/06/2018 None Onset and Resolution g radual in onset 09/06/2018 None Onset of Symptom durin g adulthood 09/06/2018 None Alleviating Factors me dication 09/06/2018 None Exacerbating Factors d iet 09/06/2018 None Quality chronic 09/06/2018 None Quality primary hypert ension 09/06/2018 None Significant Medications statin 09/06/2018 None Quality chronic 09/06/2018 None Location Denies in the RLQ 09/06/2018 None Quality acute 09/06/2018 None Quality intermittent 09/06/2018 None Onset and Resolution D enies ongoing 09/06/2018 None Onset of Symptom sever al months ago 09/06/2018 None Triggers Denies no kno wn associated factors 09/06/2018 None Alleviating Factors ac tivity 09/06/2018 None Exacerbating Factors r est 09/06/2018 -sitting inactive for a p eriod of time Location maxillary sin uses 07/08/2018 None Quality acute 07/08/2018 None Pertinent Findings fever 07/08/2018 None Location diffusely 07/08/2018 None Quality acute 07/08/2018 None Onset and Resolution D enies sudden in onset 07/08/2018 None Pertinent Findings fever 07/08/2018 None Onset and Resolution o ngoing 02/11/2018 None Onset of Symptom durin g adulthood 02/11/2018 None Blood Pressure Values not checking blood pressure at home 02/11/2018 None Alleviating Factors me dication 02/11/2018 None Pertinent Findings Den ies dizziness 02/11/2018 None Pertinent Findings Den ies dyspnea 02/11/2018 None Pertinent Findings Den ies edema 02/11/2018 None Onset and Resolution g radual in onset 02/11/2018 None Onset and Resolution o ngoing 02/11/2018 None Onset of Symptom durin g adulthood 02/11/2018 None Alleviating Factors me dication 02/11/2018 None Exacerbating Factors d iet 02/11/2018 None Location on the right 02/11/2018 None Quality intermittent 02/11/2018 None Onset and Resolution o ngoing 02/11/2018 None Onset and Resolution w orse in the morning 02/11/2018 None Limitation on Activities allows weight bearing activity 02/11/2018 None skin lesion Onset and Resolution sudden in onset 10/23/2017 None skin lesion Onset of Symptom 1 days ago 10/23/2017 None skin lesion Location rig ht arm 10/23/2017 None skin lesion Quality non- tender 10/23/2017 None skin lesion Quality rais ed 10/23/2017 None foot pain Location on th e right 08/13/2017 None foot pain Location on th e lateral surface 08/13/2017 None foot pain Onset and Resolution resolved 08/13/2017 None foot pain Onset of Symptom months ago 08/13/2017 None foot pain Limitation on Activities allows weight bearing activity 08/13/2017 None foot pain Severity moder ate 08/13/2017 None hypertension Onset and Resolution ongoing 08/13/2017 None hypertension Onset of Symptom during adulthood 08/13/2017 None hypertension Blood Pressure Values not checking blood pressure at home 08/13/2017 None hypertension Alleviating Factors medication 08/13/2017 None hypertension Pertinent Findings Denies dizziness 08/13/2017 None hypertension Pertinent Findings Denies dyspnea 08/13/2017 None hypertension Pertinent Findings Denies edema 08/13/2017 None hyperlipidemia Onset and Resolution gradual in onset 08/13/2017 None hyperlipidemia Onset and Resolution ongoing 08/13/2017 None hyperlipidemia Onset of Symptom during adulthood 08/13/2017 None hyperlipidemia Alleviating Factors medication 08/13/2017 None hyperlipidemia Exacerbating Factors diet 08/13/2017 None foot pain Pertinent Findings Denies numbness 08/13/2017 None foot pain Location on th e right 07/16/2017 None foot pain Location on th e lateral surface 07/16/2017 None foot pain Onset of Symptom months ago 07/16/2017 None foot pain Limitation on Activities allows weight bearing activity 07/16/2017 None foot pain Severity moder ate 07/16/2017 None foot pain Onset and Resolution resolved 07/16/2017 None foot pain Location on th e right 06/29/2017 None foot pain Quality sharp pain 06/29/2017 None foot pain Quality interm ittent 06/29/2017 None foot pain Location on th e lateral surface 06/29/2017 None foot pain Pertinent Findings Denies decreased range of motion 06/29/2017 None foot pain Pertinent Findings limping 06/29/2017 None foot pain Pertinent Findings pain with movement 06/29/2017 None foot pain Pertinent Findings Denies stiffness 06/29/2017 None foot pain Onset and Resolution ongoing 06/29/2017 None foot pain Onset of Symptom _ months ago 06/29/2017 None foot pain Limitation on Activities allows weight bearing activity 06/29/2017 None foot pain Severity moder ate 06/29/2017 None cough Location in the th roat 05/01/2017 None cough Quality constant 05/01/2017 None cough Quality hacking 05/01/2017 None cough Onset and Resolution ongoing 05/01/2017 None cough Onset of Symptom 1 weeks ago 05/01/2017 None cough Limitation on Activities does not limit activities 05/01/2017 None cough Frequency of Episodes unchanged 05/01/2017 None cough Triggers no known associated factors 05/01/2017 None cough Pertinent Findings Denies dyspnea 05/01/2017 None cough Pertinent Findings Denies fever 05/01/2017 None cough Pertinent Findings Denies ill contacts 05/01/2017 None cough Pertinent Findings Denies lethargy 05/01/2017 None cough Pertinent Findings post nasal drip 05/01/2017 None cough Location in the th roat 04/24/2017 None cough Quality constant 04/24/2017 None cough Quality hacking 04/24/2017 None cough Onset and Resolution sudden in onset 04/24/2017 None cough Onset of Symptom 3 days ago 04/24/2017 None cough Frequency of Episodes daily 04/24/2017 None rash Location-Major on t he upper body 03/11/2017 None rash Location-Head/Neck on the left latter day 03/11/2017 None rash Location-Head/Neck on the right side of the neck 03/11/2017 None rash Location-Head/Neck on the left side of the neck 03/11/2017 None rash Location-Head/Neck on the anterior neck 03/11/2017 None rash Color red 03/11/2017 None rash Onset and Resolution sudden in onset 03/11/2017 None rash Onset of Symptom 1 week ago 03/11/2017 None rash Quality acute 03/11/2017 None rash Quality worsening 03/11/2017 None rash Quality erythematous 03/11/2017 None rash Quality flaking 03/11/2017 None rash Quality pruritic 03/11/2017 None rash Quality uncomfortab le 03/11/2017 None rash Triggers no known t riggers 03/11/2017 None rash Alleviating Factors no alleviating factors 03/11/2017 None rash Pertinent Findings tenderness 03/11/2017 tender on the right hand rash Severity mild 03/11/2017 None hypertension Onset and Resolution ongoing 02/19/2017 None hypertension Onset of Symptom during adulthood 02/19/2017 None hypertension Blood Pressure Values not checking blood pressure at home 02/19/2017 None hypertension Alleviating Factors medication 02/19/2017 None hypertension Pertinent Findings Denies dizziness 02/19/2017 None hypertension Pertinent Findings Denies dyspnea 02/19/2017 None hypertension Pertinent Findings Denies edema 02/19/2017 None hyperlipidemia Onset and Resolution gradual in onset 02/19/2017 None hyperlipidemia Onset and Resolution ongoing 02/19/2017 None hyperlipidemia Onset of Symptom during adulthood 02/19/2017 None hyperlipidemia Alleviating Factors medication 02/19/2017 None hyperlipidemia Exacerbating Factors diet 02/19/2017 None low back pain Location o n the right 02/19/2017 None low back pain Quality in termittent 02/19/2017 None low back pain Onset and Resolution ongoing 02/19/2017 None low back pain Onset and Resolution worse in the morning 02/19/2017 None low back pain Limitation on Activities allows weight bearing activity 02/19/2017 None hypertension Onset and Resolution ongoing 10/16/2016 None hypertension Onset of Symptom during adulthood 10/16/2016 None hypertension Blood Pressure Values not checking blood pressure at home 10/16/2016 None hypertension Alleviating Factors medication 10/16/2016 None hypertension Pertinent Findings Denies dizziness 10/16/2016 None hypertension Pertinent Findings Denies dyspnea 10/16/2016 None hypertension Pertinent Findings Denies edema 10/16/2016 None hyperlipidemia Onset and Resolution gradual in onset 10/16/2016 None hyperlipidemia Onset and Resolution ongoing 10/16/2016 None hyperlipidemia Onset of Symptom during adulthood 10/16/2016 None hyperlipidemia Alleviating Factors medication 10/16/2016 None hyperlipidemia Exacerbating Factors diet 10/16/2016 None low back pain Location o n the right 10/16/2016 None low back pain Quality in termittent 10/16/2016 None low back pain Onset and Resolution ongoing 10/16/2016 None low back pain Onset and Resolution worse in the morning 10/16/2016 None low back pain Limitation on Activities allows weight bearing activity 10/16/2016 None hypertension Onset and Resolution ongoing 06/19/2016 None hypertension Onset of Symptom during adulthood 06/19/2016 None hypertension Blood Pressure Values not checking blood pressure at home 06/19/2016 None hypertension Alleviating Factors medication 06/19/2016 None hypertension Pertinent Findings Denies dizziness 06/19/2016 None hypertension Pertinent Findings Denies dyspnea 06/19/2016 None hypertension Pertinent Findings Denies edema 06/19/2016 None hyperlipidemia Onset and Resolution gradual in onset 06/19/2016 None hyperlipidemia Onset and Resolution ongoing 06/19/2016 None hyperlipidemia Onset of Symptom during adulthood 06/19/2016 None hyperlipidemia Alleviating Factors medication 06/19/2016 None hyperlipidemia Exacerbating Factors diet 06/19/2016 None low back pain Location o n the right 06/19/2016 None low back pain Quality in termittent 06/19/2016 None low back pain Onset and Resolution ongoing 06/19/2016 None low back pain Onset and Resolution worse in the morning 06/19/2016 None low back pain Limitation on Activities allows weight bearing activity 06/19/2016 None shoulder pain Location d eep 03/13/2016 None shoulder pain Quality sh paige 03/13/2016 None shoulder pain Quality [address] abbing 03/13/2016 None shoulder pain Quality ac lynda 03/13/2016 None shoulder pain Quality wo rsening 03/13/2016 None shoulder pain Onset and Resolution ongoing 03/13/2016 None shoulder pain Onset of Symptom _ months ago 03/13/2016 None shoulder pain Frequency of Episodes daily 03/13/2016 None shoulder pain Exacerbating Factors lifting 03/13/2016 None shoulder pain Exacerbating Factors pulling 03/13/2016 None shoulder pain Exacerbating Factors activity 03/13/2016 None shoulder pain Exacerbating Factors position change 03/13/2016 None shoulder pain Pertinent Findings limited range of motion 03/13/2016 None shoulder pain Pertinent Findings stiffness 03/13/2016 None shoulder pain Pertinent Findings loss of range of motion 03/13/2016 None shoulder pain Pertinent Findings loss of strength 03/13/2016 None medication follow up Additional Comments medication use 02/22/2016 None medication follow up Location oral intake 02/22/2016 None blood pressure followup Quality chronic 02/22/2016 None blood pressure followup Onset and Re solution ongoing 02/22/2016 None blood pressure followup Onset of Symptom during adulthood 02/22/2016 None blood pressure followup Blood Pressu re Values pt checking blood pressure - see scanned document 02/22/2016 None blood pressure followup Severity mild 02/22/2016 None blood pressure followup Frequency of Episodes unchanged 02/22/2016 Non e blood pressure followup Significant Family History heart disease 02/22/2016 None blood pressure followup Alleviating Factor s medication 02/22/2016 None blood pressure followup Pertinent Findings Denies anxiety 02/22/2016 None hypertension Onset and Resolution ongoing 12/18/2015 None hypertension Onset of Symptom during adulthood 12/18/2015 None hypertension Blood Pressure Values pt checking blood pressure - see scanned document 12/18/2015 None hypertension Alleviating Factors medication 12/18/2015 None Hospital Follow Up _ Oth er: LEFT KNEE REPLACEMENT 12/18/2015 None hypertension Onset and Resolution ongoing 11/13/2015 None hypertension Onset of Symptom during adulthood 11/13/2015 None hypertension Blood Pressure Values pt checking blood pressure - see scanned document 11/13/2015 None hypertension Alleviating Factors medication 11/13/2015 None hypertension Exacerbating Factors stress 11/13/2015 None hypertension Pertinent Findings Denies dizziness 11/13/2015 None hypertension Pertinent Findings Denies dyspnea 11/13/2015 None hypertension Pertinent Findings Denies edema 11/13/2015 None hyperlipidemia Onset and Resolution gradual in onset 11/13/2015 None hyperlipidemia Onset and Resolution ongoing 11/13/2015 None hyperlipidemia Onset of Symptom during adulthood 11/13/2015 None hyperlipidemia Alleviating Factors medication 11/13/2015 None hyperlipidemia Exacerbating Factors diet 11/13/2015 None hyperlipidemia Significant Medications statin 11/13/2015 None urinary urgency Quality acute 11/13/2015 None urinary urgency Onset and Resolution sudden in onset 11/13/2015 None urinary urgency Onset of Symptom hours ago 11/13/2015 None urinary urgency Pertinent Findings Denies chills 11/13/2015 None urinary urgency Pertinent Findings Denies fever 11/13/2015 None Annual Medicare Wellness Exam Alcohol Use does not drink any alcohol 10/10/2015 None Annual Medicare Wellness Exam Aspirin Use yes 10/10/2015 None Annual Medicare Wellness Exam Blood Glucose (self reported) don't know 10/10/2015 No ne Annual Medicare Wellness Exam Blood Pressure (self reported) low / normal (120/80) 10/10/2015 None Annual Medicare Wellness Exam Choles terol (self reported) desireable (below 200) 10/10/2015 None Annual Medicare Wellness Exam Depres karthik (last 6 months) almost never 10/10/2015 None Annual Medicare Wellness Exam Depres karthik or Hopelessness almost never 10/10/2015 None Annual Medicare Wellness Exam Descri be Your Health very good 10/10/2015 Non e Annual Medicare Wellness Exam Exerci se Habits exercises 3 days per week 10/10/2015 None Annual Medicare Wellness Exam Exerci se Habits exercises 45 minutes per day 10/10/2015 None Annual Medicare Wellness Exam Handli ng Stress usually dionna effectively 10/10/2015 None Annual Medicare Wellness Exam Hemagl obin A-1C (self reported) don't know 10/10/2015 No ne Annual Medicare Wellness Exam Hours of Sleep 7 10/10/2015 None Annual Medicare Wellness Exam Intera ction with Friends yes 10/10/2015 None Annual Medicare Wellness Exam Intere sts & Pleasure most of the time 10/10/2015 None Annual Medicare Wellness Exam Life S atisfaction very satisfied 10/10/2015 None Annual Medicare Wellness Exam Motor Vehicle Safety always fastens seat belt: y 10/10/19 16 None Annual Medicare Wellness Exam Motor Vehicle Safety drives after drinking: n 10/10/2015 None Annual Medicare Wellness Exam Motor Vehicle Safety rides with someone who has been drinking: n 10/10/2015 None Annual Medicare Wellness Exam Nutrition servings of fried food / high fat foods per day: 1 10/10/2015 None Annual Medicare Wellness Exam Nutrition servings of high fiber / whole grain per day: 1 10/10/2015 None Annual Medicare Wellness Exam Nutrition servings of vegetables / fruit per day: 1 10/10/2015 None Annual Medicare Wellness Exam Smokin g and Tobacco Use non smoker 10/10/2015 No ne Annual Medicare Wellness Exam Social & Emotional Support usually 10/10/2015 None Annual Medicare Wellness Exam Stress some of the time 10/10/2015 None Annual Medicare Wellness Exam Sun Exposure protects skin when outdoors: y 10/10/2015 None hypertension Onset and Resolution ongoing 07/10/2015 None hypertension Onset of Symptom during adulthood 07/10/2015 None hypertension Alleviating Factors medication 07/10/2015 None hypertension Exacerbating Factors stress 07/10/2015 None hypertension Pertinent Findings Denies dizziness 07/10/2015 None hypertension Pertinent Findings Denies dyspnea 07/10/2015 None hypertension Pertinent Findings Denies edema 07/10/2015 None hypertension Blood Pressure Values pt checking blood pressure - see scanned document 07/10/2015 None hypertension Onset and Resolution ongoing 06/05/2015 None hypertension Onset of Symptom during adulthood 06/05/2015 None hypertension Blood Pressure Values patient checking blood pressure at home - did not bring in readings 06/05/2015 None hypertension Alleviating Factors medication 06/05/2015 None hypertension Exacerbating Factors stress 06/05/2015 None hypertension Pertinent Findings Denies dizziness 06/05/2015 None hypertension Pertinent Findings Denies dyspnea 06/05/2015 None hypertension Pertinent Findings Denies edema 06/05/2015 None hyperlipidemia Onset and Resolution ongoing 06/05/2015 None hyperlipidemia Onset of Symptom during adulthood 06/05/2015 None hyperlipidemia Alleviating Factors medication 06/05/2015 None hypertension Onset and Resolution ongoing 05/01/2015 None hypertension Onset of Symptom during adulthood 05/01/2015 None hypertension Blood Pressure Values patient checking blood pressure at home - did not bring in readings 05/01/2015 None hypertension Alleviating Factors medication 05/01/2015 None hypertension Exacerbating Factors stress 05/01/2015 None hypertension Pertinent Findings Denies dizziness 05/01/2015 None hypertension Pertinent Findings Denies dyspnea 05/01/2015 None hypertension Pertinent Findings Denies edema 05/01/2015 None hyperlipidemia Onset and Resolution ongoing 05/01/2015 None hyperlipidemia Onset of Symptom during adulthood 05/01/2015 None hyperlipidemia Alleviating Factors medication 05/01/2015 None Hospital Follow Up _ Oth er: total right knee replacement 04/09/2015 None Hospital Follow Up Onset of Symptom 2 weeks ago 04/09/2015 None Hospital Follow Up Onset and Resolution sudden in onset 04/09/2015 None knee pain Location on th e right 03/26/2015 - Knee surgery tomorrow with Dr. Mitchell - knee pain Quality acute 03/26/2015 None knee pain Quality interm ittent 03/26/2015 None knee pain Quality worsen ing 03/26/2015 None knee pain Onset and Resolution gradual in onset 03/26/2015 None knee pain Limitation on Activities allows weight bearing activity 03/26/2015 None hypertension Onset and Resolution ongoing 03/26/2015 None hypertension Onset of Symptom during adulthood 03/26/2015 None hypertension Blood Pressure Values patient checking blood pressure at home - did not bring in readings 03/26/2015 None hypertension Pertinent Findings Denies dizziness 03/26/2015 None hypertension Pertinent Findings Denies dyspnea 03/26/2015 None hypertension Pertinent Findings Denies edema 03/26/2015 None hypertension Alleviating Factors medication 03/26/2015 None hypertension Exacerbating Factors stress 03/26/2015 None hyperlipidemia Onset and Resolution ongoing 03/26/2015 None hyperlipidemia Onset of Symptom during adulthood 03/26/2015 None hyperlipidemia Alleviating Factors medication 03/26/2015 None pain Onset and Resolution ongoing 11/17/2014 None pain Onset of Symptom 1 months ago 11/17/2014 None pain Quality acute 11/17/2014 None pain Location-Major on t he abdomen 11/17/2014 None pain Timing of Episodes no specific time 11/17/2014 None pain Limitation on Activities does not limit activities 11/17/2014 None pain Prior Treatments pr eviously untreated 11/17/2014 None ~generic Onset of Symptom 1 days ago 10/31/2014 None ~generic Quality acute 10/31/2014 None ~generic Severity mild 10/31/2014 left groin -knot-slightly tender -unsure if it's a hernia or fatty tissue ~generic Mechanism of injury unknown 10/31/2014 None eyelid edema Location on the left eyelid 09/28/2014 None eyelid pain Location on the left eyelid 09/28/2014 None hypertension Onset and Resolution ongoing 09/28/2014 None hypertension Onset of Symptom during adulthood 09/28/2014 None hyperlipidemia Onset and Resolution ongoing 09/28/2014 None hyperlipidemia Onset of Symptom during adulthood 09/28/2014 None eyelid edema Onset and Resolution resolved 09/28/2014 None hyperlipidemia Severity moderate 09/28/2014 None hyperlipidemia Alleviating Factors medication 09/28/2014 None hyperlipidemia Exacerbating Factors diet 09/28/2014 None eyelid edema Location on the left eyelid 08/31/2014 None eyelid edema Quality acu te 08/31/2014 None eyelid edema Onset and Resolution sudden in onset 08/31/2014 None eyelid edema Onset of Symptom 2 days ago 08/31/2014 None eyelid edema Limitation on Activities does not limit activities 08/31/2014 None eyelid edema Frequency of Episodes increasing 08/31/2014 None eyelid pain Quality achi ng 08/31/2014 None eyelid pain Onset and Resolution sudden in onset 08/31/2014 None eyelid pain Pertinent Findings Denies eye discharge 08/31/2014 None eyelid pain Pertinent Findings Denies eye pressure 08/31/2014 None eyelid pain Pertinent Findings facial pain 08/31/2014 ache to site eyelid pain Location on the left eyelid 08/31/2014 None eyelid edema Triggers no known associated factors 08/31/2014 None eyelid edema Pertinent Findings edema 08/31/2014 None eyelid edema Pertinent Findings Denies eye discharge 08/31/2014 None eyelid edema Pertinent Findings Denies eye foreign body 08/31/2014 None eyelid edema Pertinent Findings Denies eye pressure 08/31/2014 states ie does feel full eyelid edema Pertinent Findings eye swelling 08/31/2014 None eyelid edema Pertinent Findings Denies eye tearing 08/31/2014 None eyelid edema Pertinent Findings Denies facial erythema 08/31/2014 None eyelid edema Pertinent Findings Denies facial pain 08/31/2014 None eyelid edema Pertinent Findings Denies facial swelling 08/31/2014 None eyelid edema Pertinent Findings Denies fever 08/31/2014 None eyelid edema Pertinent Findings Denies lightheadedness 08/31/2014 None eyelid edema Pertinent Findings Denies photophobia 08/31/2014 None knee pain Location on th e left 05/29/2014 None knee pain Timing of Episodes at night 05/29/2014 None knee pain Timing of Episodes in the morning 05/29/2014 None knee pain Onset of Symptom 2 months ago 05/29/2014 worsening lately knee pain Pertinent Findings pain with movement 05/29/2014 bending ~generic Onset of Symptom 2 weeks ago 05/29/2014 while on vacation x 1. S at in car for long period of time, pain while sitting hypertension Quality chr onic 11/29/2013 None hypertension Onset and Resolution ongoing 11/29/2013 None hypertension Onset of Symptom during adulthood 11/29/2013 None hypertension Blood Pressure Values pt checking blood pressure - see scanned document 11/29/2013 None hypertension Severity mi ld 11/29/2013 None hypertension Triggers no known associated factors 11/29/2013 None hypertension Alleviating Factors medication 11/29/2013 None hypertension Pertinent Findings dizziness 11/29/2013 1 episode reported last w [place] hypertension Pertinent Findings Denies dyspnea 11/29/2013 None hypertension Pertinent Findings Denies edema 11/29/2013 None hypertension Pertinent Findings Denies palpitations 11/29/2013 None eyelid pain Location on the right eyelid 10/04/2013 None eyelid pain Onset and Resolution sudden in onset 10/04/2013 None eyelid pain Quality achi ng 10/04/2013 None eyelid pain Onset of Symptom 1 weeks ago 10/04/2013 None eyelid pain Triggers for eign body 10/04/2013 pt pulled a black hair fr om site leaving a pink area that is raised eyelid pain Pertinent Findings Denies eye discharge 10/04/2013 None eyelid pain Pertinent Findings Denies eye pressure 10/04/2013 None eyelid pain Pertinent Findings facial pain 10/04/2013 ache to site hypertension Blood Pressure Values pt checking blood pressure - see scanned document 05/31/2013 None hypertension Pertinent Findings Denies dizziness 05/31/2013 None hypertension Pertinent Findings Denies dyspnea 05/31/2013 None hypertension Pertinent Findings Denies edema 05/31/2013 None hypertension Pertinent Findings Denies palpitations 05/31/2013 None hypertension Quality chr onic 05/31/2013 None hypertension Onset and Resolution ongoing 05/31/2013 None hypertension Onset of Symptom during adulthood 05/31/2013 None hypertension Triggers no known associated factors 05/31/2013 None hypertension Alleviating Factors medication 05/31/2013 None hypertension Severity mi ld 05/31/2013 None hypertension Quality chr onic 11/30/2012 None hypertension Quality sta ble 11/30/2012 None hypertension Onset and Resolution ongoing 11/30/2012 None hypertension Blood Pressure Values pt checking blood pressure - see scanned document 11/30/2012 None hypertension Pertinent Findings Denies dizziness 11/30/2012 None hypertension Pertinent Findings Denies dyspnea 11/30/2012 None hypertension Pertinent Findings Denies edema 11/30/2012 None hypertension Pertinent Findings Denies palpitations 11/30/2012 None hypertension Pertinent Findings Denies orthostatic hypotension 11/30/2012 None hypertension Pertinent Findings Denies tachycardia 11/30/2012 None ~generic Severity mild 11/30/2012 irritaion in vaginal vault post hysterec [place] hypertension Quality chr onic 05/31/2012 None hypertension Onset and Resolution ongoing 05/31/2012 None hypertension Blood Pressure Values pt checking blood pressure - see scanned document 05/31/2012 None hyperlipidemia Onset and Resolution ongoing 05/31/2012 will have labs checked ne xt week Pap smear abnormality Onset and Resolution ongoing 05/31/2012 None hypertension Onset of Symptom during adulthood 05/31/2012 None hypertension Severity mi ld 05/31/[address] ress 05/31/2012 None hypertension Alleviating Factors medication 05/31/2012 None hypertension Exacerbating Factors stress 05/31/2012 None hypertension Exacerbating Factors change in dietary habits 05/31/2012 None Pap smear abnormality Quality atypia 11/25/2011 None Pap smear abnormality Onset and Resolution ongoing 11/25/2011 None Pap smear abnormality Significant Me dical Conditions prior normal pap smear 11/25/2011 None Pap smear abnormality Pertinent Findings Denies urinary urgency 11/25/2011 None Pap smear abnormality Pertinent Findings Denies edema 11/25/2011 None hypertension Pertinent Findings Denies dizziness 08/21/2011 None hypertension Pertinent Findings Denies edema 08/21/2011 None hypertension Pertinent Findings Denies dyspnea 08/21/2011 None Pap smear abnormality Dates for Pap smear last normal pap (05/22/2011) 08/21/2011 Dr. Galo Pap smear abnormality Dates for Pap smear last abnormal pap (04/14/2011) 08/21/2011 Dr. Yeung Pap smear abnormality Quality atypia 08/21/2011 None Pap smear abnormality Onset of Symptom 5 months ago 08/21/2011 None Pap smear abnormality Pertinent Findings Denies edema 08/21/2011 None Pap smear abnormality Pertinent Findings Denies pelvic pain 08/21/2011 None Pap smear abnormality Pertinent Findings Denies urinary urgency 08/21/2011 None Pap smear abnormality Significant Me dical Conditions prior abnormal pap smear 08/21/2011 None hypertension Quality chr onic 08/21/2011 None hypertension Onset and Resolution ongoing 08/21/2011 None hypertension Blood Pressure Values Stage 0:SBP 130-139 mmHg / DBP 85-89 mmHg 08/21/2011 None hypertension Severity mi ld 08/21/2011 None hypertension Onset of Symptom during adulthood 08/21/[address] ress 08/21/2011 None hypertension Alleviating Factors medication 08/21/2011 None hypertension Exacerbating Factors change in dietary habits 08/21/2011 None hypertension Pertinent Findings Denies anxiety 08/21/2011 None hypertension Pertinent Findings Denies confusion 08/21/2011 None hypertension Pertinent Findings Denies decreased energy 08/21/2011 None well woman exam (65+ years) Pap Smear last normal performed 1 yr ago 04/14/2011 None well woman exam (65+ years) Menstrua l History menopause at age mid 50's 04/14/2011 None well woman exam (65+ years) Lifestyle no history of sexual abuse 04/14/2011 None well woman exam (65+ years) Lifestyle no history of physical abuse 04/14/2011 None well woman exam (65+ years) Sexual Activit y experiences sexual satisfaction 04/14/2011 None well woman exam (65+ years) Sexual Activit y is monogamous 04/14/2011 None hypertension Quality chr onic 10/14/2010 None hypertension Onset and Resolution ongoing 10/14/2010 None hypertension Blood Pressure Values Stage 0:SBP 130-139 mmHg / DBP 85-89 mmHg 10/14/2010 None hypertension Severity mi ld 10/14/2010 None Advance Directives No Advance Directive data Encounters Encounter Performer Loca tion Codes Date [id number] EST. PATIENT, LEVEL III Diagnosis: Sebaceous cyst[ICD10: L72.3] Diagnosis: Encounter for immunization[ICD10: Z23] Kat Yeung MD, [facility] CPT-4: 06503 11/01/2018 ([id number]) 40490 EST. P ATIENT, LEVEL III Diagnosis: Essential (primary) hypertension[ICD10: I10] Evelyn Yeung MD, [facility] CPT-4: 59474 09/06/2018 71778 EST. PATIENT, LEVEL III Diagnosis: Acute laryngopharyngitis[ICD10: J06.0] Diagnosis: Other allergic rhinitis[ICD10: J30.89] Fay Yeung MD, [facility] CPT-4: 52633 07/08/2018 ([id number]) 27978 EST. P ATIENT, LEVEL IV Diagnosis: Essential (primary) hypertension[ICD10: I10] Diagnosis: Mixed hyperlipidemia[ICD10: E78.2] Diagnosis: Obstructive sleep apnea (adult) (pediatric)[ICD10: G47.33] Eevlyn Yeung MD, [facility] CPT-4: 75525 02/11/2018 30593 EST. PATIENT, LEVEL III Diagnosis: Plantar wart[ICD10: B07.0] Diagnosis: Contusion of right upper arm, initial encounter[ICD10: S40.021A] Diagnosis: Corns and callosities[ICD10: L84] Diagnosis: VACCIN FOR INFLUENZA[ICD10: Z23] Fay Yeung MD, [facility] CPT-4: 17151 10/23/2017 ([id number]) 92419 EST. P ATIENT, LEVEL IV Diagnosis: Essential (primary) hypertension[ICD10: I10] Diagnosis: Corns and callosities[ICD10: L84] Diagnosis: Mixed hyperlipidemia[ICD10: E78.2] Evelyn Yeung MD, [facility] CPT- 4: 32959 08/13/2017 ([id number]) 14388 EST. P ATIENT, LEVEL III Diagnosis: Essential (primary) hypertension[ICD10: I10] Diagnosis: Corns and callosities[ICD10: L84] Kat Yeung MD, [facility] CPT- 4: 11995 07/16/2017 ([id number]) 98605 EST. P ATIENT, LEVEL III Diagnosis: Pain in right toe(s)[ICD10: M79.674] Diagnosis: Corns and callosities[ICD10: L84] Kat Yeung MD, [facility] CPT- 4: 46151 06/29/2017 ([id number]) Miscellaneou s no charge Diagnosis: Cough[ICD10: R05] Diagnosis: Other allergic rhinitis[ICD10: J30.89] Diagnosis: Acute bronchitis, unspecified[ICD10: J20.9] Kat Yeung MD, [facility] CPT-4: 54591 05/01/2017 [id number] EST. PATIENT, LEVEL IV Diagnosis: Cough[ICD10: R05] Diagnosis: Other acute sinusitis[ICD10: J01.80] Diagnosis: Other allergic rhinitis[ICD10: J30.89] Fay Yeung MD, [facility] CPT-4: 60226 04/24/2017 40805 EST. PATIENT, LEVEL III Diagnosis: Rash and other nonspecific skin eruption[ICD10: R21] Fay Yeung MD, [facility] CPT-4: 62305 03/11/2017 ([id number]) 15423 EST. P ATIENT, LEVEL IV Diagnosis: Essential (primary) hypertension[ICD10: I10] Diagnosis: Mixed hyperlipidemia[ICD10: E78.2] Evelyn Yeung MD, [facility] CPT- 4: 79424 02/19/2017 ([id number]) 32021 EST. P ATIENT, LEVEL IV Diagnosis: Encounter for screening mammogram for malignant neoplasm of breast[ICD10: Z12.31] Diagnosis: Essential (primary) hypertension[ICD10: I10] Diagnosis: Mixed hyperlipidemia[ICD10: E78.2] Evelyn Yeung MD, [facility] CPT- 4: 12959 10/16/2016 ([id number]) 06580 EST. P ATIENT, LEVEL IV Diagnosis: Essential (primary) hypertension[ICD10: I10] Diagnosis: Primary central sleep apnea[ICD10: G47.31] Diagnosis: Low back pain[ICD10: M54.5] Evelyn Yeung MD, [facility] CPT-4: 78350 06/19/2016 ([id number]) 73449 EST. P ATIENT, LEVEL III Diagnosis: Pain in left shoulder[ICD10: M25.512] Diagnosis: Pain in left upper arm[ICD10: M79.622] Kat Yeung MD, [facility] CPT-4: 97565 03/13/2016 ([id number]) 10520 EST. P ATIENT, LEVEL III Diagnosis: Essential (primary) hypertension[ICD10: I10] Diagnosis: Pain in left shoulder[ICD10: M25.512] Kat Yeung MD, [facility] CPT-4: 36295 02/22/2016 ([id number]) 81997 EST. P ATIENT, LEVEL III Diagnosis: Orthostatic hypotension[ICD10: I95.1] [facility] CPT-4: 15575 12/18/2015 ([id number]) 18758 EST. P ATIENT, LEVEL III Diagnosis: Essential (primary) hypertension[ICD10: I10] Diagnosis: Dysuria[ICD10: R30.0] Diagnosis: VACCIN FOR INFLUENZA[ICD10: Z23] [facility] CPT-4: 87857 11/13/2015 ([id number]) Miscellying s no charge Diagnosis: Essential (primary) hypertension[ICD10: I10] Kat Yeung MD, [facility] CPT-4: 61271 07/23/2015 ([id number]) 55820 EST. P ATIENT, LEVEL III Diagnosis: Essential (primary) hypertension[ICD10: I10] Evelyn Ye[facility] CPT-4: 50805 07/10/2015 ([id number]) 36922 EST. P ATIENT, LEVEL IV Diagnosis: Essential (primary) hypertension[ICD10: I10] Diagnosis: Primary central sleep apnea[ICD10: G47.31] Diagnosis: Anemia, unspecified[ICD10: D64.9] Evelyn Yeung MD, [facility] CPT-4: 54884 06/05/2015 ([id number]) 29439 EST. P ATIENT, LEVEL III Diagnosis: Essential (primary) hypertension[ICD10: I10] Evelyn Yeung MD, [facility] CPT-4: 34041 05/01/2015 18059 EST. PATIENT, LEVEL III Diagnosis: Pain in right knee[ICD10: M25.561] Diagnosis: Essential (primary) hypertension[ICD10: I10] Diagnosis: Encounter for follow-up examination after completed treatment for conditions other than malignant neoplasm[ICD10: Z09] Fay Yeung MD, [facility] CPT-4: 80278 04/09/2015 ([id number]) 47409 EST. P ATIENT, LEVEL IV Diagnosis: Essential (primary) hypertension[ICD10: I10] Diagnosis: Pain in right knee[ICD10: M25.561] Evelyn Yeung MD, [facility] CPT- 4: 61495 03/26/2015 ([id number]) 24997 EST. P ATIENT, LEVEL III Diagnosis: Left upper quadrant pain[ICD10: R10.12] Diagnosis: Lower abdominal pain, unspecified[ICD10: R10.30] Diagnosis: Recurrent oral aphthae[ICD10: K12.0] Evelyn Yeung MD, [facility] CPT-4: 48511 11/17/2014 ([id number]) 67576 EST. P ATIENT, LEVEL III Diagnosis: Left groin pain[ICD9: 789.09] Evelyn Yeung MD, [facility] CPT-4: 84403 10/31/2014 ([id number]) 86868 EST. P ATIENT, LEVEL IV Diagnosis: ESSENTIAL HYPERTENSION[ICD9: 401.9] Diagnosis: HYPERLIPIDEMIA[ICD9: 272.4] Evelyn Yeung MD, [facility] CPT-4: 80416 09/28/2014 ([id number]) 94293 EST. P ATIENT, LEVEL III Diagnosis: CELLULITIS OF FACE[ICD9: 682.0] [facility] CPT-4: 37886 08/31/2014 ([id number]) 13821 EST. P ATIENT, LEVEL IV Diagnosis: ESSENTIAL HYPERTENSION[ICD9: 401.9] Diagnosis: Hyperlipidemia[ICD9: 272.4] Diagnosis: Reyes's cyst of knee[ICD9: 727.51] Evelyn Yeung MD, [facility] CPT- 4: 92753 05/29/2014 ([id number]) 77088 EST. P ATIENT, LEVEL III Diagnosis: ESSENTIAL HYPERTENSION[ICD9: 401.9] Diagnosis: HYPERLIPIDEMIA[ICD9: 272.4] [facility] CPT-4: 34930 11/29/2013 ([id number]) 35008 EST. P ATIENT, LEVEL III Diagnosis: CELLULITIS OF FACE[ICD9: 682.0] [facility] CPT-4: 60936 10/04/2013 ([id number]) 23579 EST. P ATIENT, LEVEL IV Diagnosis: ESSENTIAL HYPERTENSION[SNOMED: 55472851] Diagnosis: HYPERLIPIDEMIA[ICD9: 272.4] [facility] CPT-4: 12747 05/31/2013 ([id number]) 86891 EST. P ATIENT, LEVEL III Diagnosis: ESSENTIAL HYPERTENSION[SNOMED: 10561304] Diagnosis: ABN FINDINGS NEC[ICD9: 796.9] [facility] CPT-4: 83608 11/30/2012 ([id number]) 70354 EST. P ATIENT, LEVEL IV Diagnosis: ESSENTIAL HYPERTENSION[SNOMED: 01579492] Diagnosis: HYPERLIPIDEMIA[ICD9: 272.4] Diagnosis: Abnormal Pap smear[ICD9: 796.9] Evelyn Yeung MD, [facility] CPT-4: 97844 05/31/2012 ([id number]) 99970 EST. P ATIENT, LEVEL III Diagnosis: Abnormal Pap smear[ICD9: 796.9] Diagnosis: ESSENTIAL HYPERTENSION[SNOMED: 99792161] [facility] CPT-4: 22777 11/25/2011 ([id number]) 76379 EST. P ATIENT, LEVEL IV Diagnosis: Abnormal Pap smear[ICD9: 796.9] Diagnosis: ESSENTIAL HYPERTENSION[SNOMED: 09681658] Diagnosis: Hot flashes due to surgical menopause[ICD9: 627.4] [facility] CPT-4: 45932 08/21/2011 ([id number]) 11466 EST. P ATIENT, LEVEL IV Diagnosis: ESSENTIAL HYPERTENSION[SNOMED: 74649659] Diagnosis: Hyperlipidemia[ICD9: 272.4] Diagnosis: Annual physical exam[ICD9: V70.0] Evelyn Yeung MD, [facility] CPT-4: 44434 04/14/2011 [id number] EST. PATIENT, LEVEL III Diagnosis: ESSENTIAL HYPERTENSION[SNOMED: 87380003] Diagnosis: Dyspareunia, female[ICD9: 625.0] Evelyn Yeung MD, [facility] CPT-4: 86005 10/14/2010 Plan of Care Planned Activity Notes C odes Status Date Visit Plan: Sebaceous cyst -refer t cory Balderas for removal - call if becomes infected -patient verbalized understanding of plan. 11/01/2018 Appointment: Kat Mitchell WPtel: [address] [place], [place] [id number] (30 min) [facility] 11/01/2018 Patient Education: Patient Medication Summary Completed 11/01/2018 Visit Plan: Hypertension - well con trolled - continue with current medications, continue with no added salt diet. Pt has been encouraged to exercise daily. The pt has been advised to call the office if there are any acute concerns about change in blood pressure readings at home. 09/06/2018 Appointment: Evelyn Yeung WPtel: [phone] [facility] (15 min) Moderate 09/06/2018 Patient Education: Patient Medication Summary Completed 09/06/2018 Visit Plan: URI - Pt advised to inc rease fluids, vitamin C. Discussed natural and expected course of this diagnosis and need to alert me if symptoms do not follow expected course, or if any worse. RX sent to patient's pharmacy. Allergies - chronic - recommended pt to use allergy medication as prescribed. Pt has been counseled as to the appropriate use of the medication. Pt to call if allergy symptoms are not controlled with the medication. If using nasal spray, instructions as follows: Nasal spray- use twice daily, one spray per nostril twice daily, after 30 minutes, rinse out nose with saline spray.. Use opposite hand per nostril to spray in the nasal steroid allergy spray. 07/08/2018 Appointment: Fay Marie WPtel: [phone] [facility] (30 min) Complex 07/08/2018 Patient Education: Patient Medication Summary Completed 07/08/2018 Visit Plan: Hypertension - well con trolled - continue with current medications, continue with no added salt diet. Pt has been encouraged to exercise daily. The pt has been advised to call the office if there are any acute concerns about change in blood pressure readings at home. Hyperlipidemia - pt has been counseled about appropriate diet, exercise, and need for low fat food choices. I have discussed the need for the patient to take medications as prescribed. If the patient has negative side effects from the medication, they are to CALL the office and not abruptly discontinue the medication without discussion with a practitioner in the office. We will check labs in 3-6 months for follow up on the patient's chronic medical problem and to assure normal liver response to medications. Sleep apnea - continue with cpap - pt doing well with the cpap. 02/11/2018 Appointment: Evelyn Yeung WPtel: [phone] [facility] (15 min) Moderate 02/11/2018 Patient Education: Patient Medication Summary Completed 02/11/2018 Patient Education: Cholesterol Management Completed 02/11/2018 Patient Education: Patient Medication Summary Completed 10/28/2017 Visit Plan: Plantar wart - right fo ot - cryotherapy - pt tolerated procedure well- Wound Instructions - Pt was instructed to keep the wound clean, wash with antibacterial soap, use triple antibiotic ointment, call if redness, pustular drainage, or any other acute concerns. Bruise to right forearm - monitor symptoms - pt is to notify clinic if no improvement 10/23/2017 Visit Plan: Plantar wart - right fo ot - cryotherapy - pt tolerated procedure well- Wound Instructions - Pt was instructed to keep the wound clean, wash with antibacterial soap, use triple antibiotic ointment, call if redness, pustular drainage, or any other acute concerns. Bruise to right forearm - monitor symptoms - pt is to notify clinic if no improvement 10/23/2017 Appointment: Fay Marie WPtel: [facility]9 [facility]66[facility] (15 min) Moderate 10/23/2017 Patient Education: Patient Medication Summary Completed 10/23/2017 Visit Plan: Hypertension - well con trolled - continue with current medications, continue with no added salt diet. Pt has been encouraged to exercise daily. The pt has been advised to call the office if there are any acute concerns about change in blood pressure readings at home. Hyperlipidemia - pt has been counseled about appropriate diet, exercise, and need for low fat food choices. I have discussed the need for the patient to take medications as prescribed. If the patient has negative side effects from the medication, they are to CALL the office and not abruptly discontinue the medication without discussion with a practitioner in the office. We will check labs in 3-6 months for follow up on the patient's chronic medical problem and to assure normal liver response to medications. [place] on 4th toe right foot lateral surface - removed with scalpel. 08/13/2017 Appointment: Evelyn Yeung WPtel: [phone] [facility] (15 min) Moderate 08/13/2017 Patient Education: Patient Medication Summary Completed 08/13/2017 Visit Plan: BRD-rmjcyywism-de goldberg es Callus right toe -healed-no further treatment indicated 07/16/2017 Appointment: Kat Mitchell WPtel: [phone] [phone] (15 min) Moderate 07/16/2017 Patient Education: Patient Medication Summary Completed 07/16/2017 Appointment: Kat Mitchell WPtel: [phone] [phone] (15 min) Moderate 07/14/2017 Visit Plan: Callus-right 4th toe-de brided today in the office-instructed patient on wound care and to call if symptoms do not resolve or if any worse-patient verbalized understanding of plan. 06/29/2017 Appointment: Kat Mitchell WPtel: [phone] [phone] (15 min) Moderate 06/29/2017 Patient Education: Patient Medication Summary Completed 06/29/2017 Visit Plan: Bronchitis-cough Discus sed natural and expected course of this diagnosis and need to alert me if symptoms do not follow expected course, or if any worse. RX sent to patient's pharmacy. 05/01/2017 Appointment: Kat Mitchell WPtel: [phone] [phone] [place] (10 min) Simple 05/01/2017 Patient Education: Patient Medication Summary Completed 05/01/2017 Visit Plan: Sinusitis - Pt has acut e infection - pain in face, maxillary region, Pt informed to use decongestant, RX given to patient, sinus rinses also recommended. Call if symptoms do not show improvement. Allerg ies - chronic - recommended pt to use allergy medication as prescribed. Pt has been counseled as to the appropriate use of the medication. Pt to call if allergy symptoms are not controlled with the medication. If using nasal spray, instructions as follows: Nasal spray- use twice daily, one spray per nostril twice daily, after 30 minutes, rinse out nose with saline spray.. Use opposite hand per nostril to spray in the nasal steroid allergy spray. 04/24/2017 Appointment: Fay Marie WPtel: [phone] [facility] [place] (15 min) Moderate 04/24/2017 Patient Education: Patient Medication Summary Completed 04/24/2017 Visit Plan: Allergic Reaction/Hives - discussed diagnosis with patient, need to avoid allergen, and when/if the patient should go to the emergency room. Pt was instructed to take benadryl 25mg q 6 hours x 48 hours, and pepcid 20mg bid x 48 hours, pt also given RX for prednisone taper. Rash- RX sent - The patient is to call for any change in symptoms, increase in size of the lesion, increase in pain, worsening redness, warmth, discharge. 03/11/2017 Appointment: [facility]ay [facility]el[facility] (30 min) Complex 03/11/2017 Patient Education: Patient Medication Summary Completed 03/11/2017 Visit Plan: Hypertension - well con trolled - continue with current medications, continue with no added salt diet. Pt has been encouraged to exercise daily. The pt has been advised to call the office if there are any acute concerns about change in blood pressure readings at home. Right Axilla discomfort - discussed with stephanie adams - suspect it is due to surgical clips. Hyperlipidemia - pt has been counseled about appropriate diet, exercise, and need for low fat food choices. I have discussed the need for the patient to take medications as prescribed. If the patient has negative side effects from the medication, they are to CALL the office and not abruptly discontinue the medication without discussion with a practitioner in the office. We will check labs in 3-6 months for follow up on the patient's chronic medical problem and to assure normal liver response to medications. 02/19/2017 Appointment: [facility]Ptel[phone] (15 min) Moderate 02/19/2017 Patient Education: Patient Medication Summary Completed 02/19/2017 Appointment: Injection 12/09/2016 Patient Education: Patient Medication Summary Completed 12/09/2016 Visit Plan: Hypertension - well con trolled - continue with current medications, continue with no added salt diet. Pt has been encouraged to exercise daily. The pt has been advised to call the office if there are any acute concerns about change in blood pressure readings at home. Hyperlipidemia - pt has been counseled about appropriate diet, exercise, and need for low fat food choices. I have discussed the need for the patient to take medications as prescribed. If the patient has negative side effects from the medication, they are to CALL the office and not abruptly discontinue the medication without discussion with a practitioner in the office. We will check labs in 3-6 months for follow up on the patient's chronic medical problem and to assure normal liver response to medications. 10/16/2016 Appointment: Evelyn Yeung WPtel: [facility]5 [facility] (15 min) Moderate 10/16/2016 Patient Education: Patient Medication Summary Completed 10/16/2016 Patient Education: Obesity Completed 10/16/2016 Visit Plan: Hypertension - well con trolled - continue with current medications, continue with no added salt diet. Pt has been encouraged to exercise daily. The pt has been advised to call the office if there are any acute concerns about change in blood pressure readings at home. Sleep apnea - - continue with use of CPAP - pt has benefit and is tolerating the CPAP. Back pain - continue with supportive care, monitor symptoms. 06/19/2016 Appointment: Evelyn Yeung WPtel: [facility]9 [facility] (15 min) Moderate 06/19/2016 Patient Education: Patient Medication Summary Completed 06/19/2016 Patient Education: Obesity Completed 06/19/2016 Visit Plan: Left shoulder pain-adriana ent has done rest, ice, and anti inflammatories-shoulder pain persists and causing weakness in left arm- will xray shoulder/humerus and proceed with MRI if indicated-patient verbalized understanding of plan. 03/13/2016 Appointment: [facility] Mitchell [facility]Ptel[phone] [place] (15 min) Moderate 03/13/2016 Appointment: [facility] Yeung WPtel: [phone] [place] (15 min) Moderate 03/13/2016 Patient Education: Patient Medication Summary Completed 03/13/2016 Patient Education: Obesity Completed 03/13/2016 Visit Plan: Hypertension - well con trolled - continue with current medications, continue with no added salt diet. Pt has been encouraged to exercise daily. The pt has been advised to call the office if there are any acute concerns about change in blood pressure readings at home. 02/22/2016 Appointment: Kat Mitchell WPtel: [facility]5 [phone] (15 min) Moderate 02/22/2016 Patient Education: Patient Medication Summary Completed 02/22/2016 Patient Education: Obesity Completed 02/22/2016 Appointment: Kat Mitchell WPtel: [facility]5 [phone] [place] (30 min) Complex 02/06/2016 Visit Plan: HYPOTENSION - RECOMMEND ED PT TO DECREASE THE LISIONPRIL TO 20MG ONE TIME DAILY. 12/18/2015 Appointment: Evelyn Yeung WPtel: [facility]5 [facility] (15 min) Moderate 12/18/2015 Patient Education: Patient Medication Summary Completed 12/18/2015 Patient Education: Obesity Completed 12/18/2015 Visit Plan: Hypertension - well con trolled - continue with current medications, continue with no added salt diet. Pt has been encouraged to exercise daily. The pt has been advised to call the office if there are any acute concerns about change in blood pressure readings at home. 11/13/2015 Appointment: Evelyn Yeung WPtel: [facility]5 [facility] (15 min) Moderate 11/13/2015 Patient Education: Patient Medication Summary Completed 11/13/2015 Patient Education: Obesity Completed 11/13/2015 Care Plan: Urine Culture Pending 11/13/2015 Visit Plan: Medicare Exam - today w e discussed the patients past history, immunizations, preventative exams/evaluations - colonoscopy, fecal occult blood testing, routine labs for renal function, glucose, cholesterol, osteoporosis evaluations, cardiovascular testing and cancer screenings. We have also discussed mental health and the signs/symptoms of depression. The patient was advised of home safety evaluations and the need to make sure that as the aging process continues, we need to be aware of different ways to make the home a safer place to reside. The patient has also been counseled that exercise is necessary - and of utmost importance as we age to help decrease fall risk and to maintain independece in the home. Today we discussed the need for the patient to create paperwork for Advanced directives as well as for the patient to provide this office with a copy of her DOPA paperwork for health care surrogate. 10/10/2015 Appointment: Kat Mitchell WPtel: [phone] [phone] (30 min) Complex 10/10/2015 Patient Education: Patient Medication Summary Completed 10/10/2015 Patient Education: Obesity Completed 10/10/2015 Appointment: Nurse Visit 07/23/2015 Patient Education: Patient Medication Summary Completed 07/23/2015 Patient Education: Hypertension Completed 07/23/2015 Visit Plan: Hypertension - well con trolled - continue with current medications, continue with no added salt diet. Pt has been encouraged to exercise daily. The pt has been advised to call the office if there are any acute concerns about change in blood pressure readings at home. 07/10/2015 Appointment: Evelyn Yeung WPtel: [phone] [facility] (15 min) Moderate 07/10/2015 Patient Education: Patient Medication Summary Completed 07/10/2015 Patient Education: Obesity Completed 07/10/2015 Visit Plan: Hypertension - uncontro lled - the patient's medications have been modified as documented in the visit note. The patient has been counseled to cut back on salt in diet for a no added salt diet, low fat d iet, start an exercise program with low weight bearing exercises and higher aerobic activity for heart health. The patient is to check blood pressure readings as an outpatient and either fax, call, or email the readings to the office next week for practitioner to review. The pt is to call for acute concerns. Pt to get coated aspirin. Pt to have labs checked today Sleep Apnea - continue with cpap 06/05/2015 Appointment: Evelyn Yeung WPtel: [phone] [place] (15 min) Moderate 06/05/2015 Patient Education: Patient Medication Summary Completed 06/05/2015 Patient Education: Obesity Completed 06/05/2015 Visit Plan: Hypertension - well con trolled - continue with current medications, continue with no added salt diet. Pt has been encouraged to exercise daily. The pt has been advised to call the office if there are any acute concerns about change in blood pressure readings at home. 05/01/2015 Patient Education: Patient Medication Summary Completed 05/01/2015 Patient Education: Obesity Completed 05/01/2015 Patient Education: Hypertension Completed 05/01/2015 Visit Plan: Total Right knee - pt i s here for a follow up from having surgery on her right knee. Pt states that she is doing well and is almost finished with home health and is doing physical therapy. Pt states that she recently had the camila removed. Surgical incision is healing well, steri strips in place, no erythema or warmth noted. Pt has a follow up appointment with her surgeon on Thursday. Pt is to notify clinic with any questions or concerns. 04/09/2015 Appointment: (30 min) Complex 04/09/2015 Patient Education: Patient Medication Summary Completed 04/09/2015 Patient Education: Hypertension Completed 04/09/2015 Appointment: Evelyn Yeung WPtel: [phone] (15 min) Moderate 03/29/2015 Visit Plan: Hypertension - well con trolled - continue with current medications, continue with no added salt diet. Pt has been encouraged to exercise daily. The pt has been advised to call the office if there are any acute concerns about change in blood pressure readings at home. Knee pain - pt to have surgery tomorrow. Pt will need therapy as outpatient. 03/26/2015 Patient Education: Patient Medication Summary Completed 03/26/2015 Patient Education: Hypertension Completed 03/26/2015 Visit Plan: Oral aphthae-start acyc lovir Abdominal pain-LUQ and LLQ-schedule abdominal ultrasound 11/17/2014 Appointment: (15 min) Moderate 11/17/2014 Patient Education: Patient Medication Summary Completed 11/17/2014 Visit Plan: Left groin pain-Dr Vides stochristophe in to evaluate patient-no palpable abnormality today in the office-recommend muscle rub to area and heat-call if pain does not resolve or if any worse. Patient verbalized understanding of plan. 10/31/2014 Patient Education: Patient Medication Summary Completed 10/31/2014 Visit Plan: Hypertension - well con trolled - continue with current medications, continue with no added salt diet. Pt has been encouraged to exercise daily. The pt has been advised to call the office if there are any acute concerns about change in blood pressure readings at home. Hyperlipidemia - pt has been counseled about appropriate diet, exercise, and need for low fat food choices. I have discussed the need for the patient to take medications as prescribed. If the patient has negative side effects from the medication, they are to CALL the office and not abruptly discontinue the medication without discussion with a practitioner in the office. We will check labs in 3-6 months for follow up on the patient's chronic medical problem and to assure normal liver response to medications. 09/28/2014 Appointment: Evelyn Yeung WPtel: [phone] [facility] Follow up 09/28/2014 Patient Education: Patient Medication Summary Completed 09/28/2014 Patient Education: Hypertension Completed 09/28/2014 Care Plan: COMPLETE CBC AUTOMATED LOINC : 73589-9 Ordered 09/28/2014 Visit Plan: Cellulitis - RX to pt's pharmacy. Return to clinic or call for acute change in symptoms, worsening redness, warmth, discharge. 08/31/2014 Patient Education: Patient Medication Summary Completed 08/31/2014 Visit Plan: Hypertension - well con trolled - continue with current medications, continue with no added salt diet. Pt has been encouraged to exercise daily. The pt has been advised to call the office if there are any acute concerns about change in blood pressure readings at home. Hyperlipidemia - pt has been counseled about appropriate diet, exercise, and need for low fat food choices. I have discussed the need for the patient to take medications as prescribed. If the patient has negative side effects from the medication, they are to CALL the office and not abruptly discontinue the medication without discussion with a practitioner in the office. We will check labs in 3-6 months for follow up on the patient's chronic medical problem and to assure normal liver response to medications. Bakers cyst of knee - recommended to stop hyper- extending the knee at night when she sleeps - need to try to sleep on right or left side or back, support knee at night when at rest. 05/29/2014 Appointment: Evelyn Yeung WPtel: [phone] Follow up 05/29/2014 Patient Education: Patient Medication Summary Completed 05/29/2014 Patient Education: Hypertension Completed 05/29/2014 Visit Plan: Hypertension - well con trolled - continue with current medications, continue with no added salt diet. Pt has been encouraged to exercise daily. The pt has been advised to call the office if there are any acute concerns about change in blood pressure readings at home. Hyperlipidemia - pt has been counseled about appropriate diet, exercise, and need for low fat food choices. I have discussed the need for the patient to take medications as prescribed. If the patient has negative side effects from the medication, they are to CALL the office and not abruptly discontinue the medication without discussion with a practitioner in the office. We will check labs in 3-6 months for follow up on the patient's chronic medical problem and to assure normal liver response to medications. 11/29/2013 Appointment: Evelyn Yeung WPtel: [phone] [facility] Follow up 11/29/2013 Patient Education: Patient Medication Summary Completed 11/29/2013 Patient Education: Hypertension Completed 11/29/2013 Care Plan: COMPLETE CBC AUTOMATED LOINC : 88010-6 Ordered 11/29/2013 Visit Plan: Cellulitis - continue w ith oral antibiotics as previously directed, return to clinic as previously directed, call for acute change in symptoms, worsening redness, warmth, discharge. 10/04/2013 Appointment: Evelyn Yeung WPtel: [phone] [facility] [facility] 10/04/2013 Patient Education: Patient Medication Summary Completed 10/04/2013 Visit Plan: Hypertension - well con trolled - continue with current medications, continue with no added salt diet. Pt has been encouraged to exercise daily. The pt has been advised to call the office if there are any acute concerns about change in blood pressure readings at home. Hyperlipidemia - pt has been counseled about appropriate diet, exercise, and need for low fat food choices. I have discussed the need for the patient to take medications as prescribed. If the patient has negative side effects from the medication, they are to CALL the office and not abruptly discontinue the medication without discussion with a practicioner in the office. We will check labs in 3-6 months for follow up on the patient's chronic medical problem and to assure normal liver response to medications. Check labs in May and agaiin in 6 months 05/31/2013 Appointment: Evelyn Yeung WPtel: [phone] [facility] [place] Follow up 05/31/2013 Patient Education: Patient Medication Summary Completed 05/31/2013 Patient Education: Hypertension Completed 05/31/2013 Visit Plan: Hypertension - well con trolled - continue with current medications, continue with no added salt diet. Pt has been encouraged to exercise daily. The pt has been advised to call the office if there are any acute concerns about change in blood pressure readings at home. Improved granulation tissue in vaginal tissue - no need for repeat exam until 2 years. 11/30/2012 Appointment: [facility] [address] [id number] [place] Pap Only 11/30/2012 Patient Education: Patient Medication Summary Completed 11/30/2012 Patient Education: Hypertension Completed 11/30/2012 Visit Plan: Hypertension - well con trolled - continue with current medications, continue with no added salt diet. Pt has been encouraged to exercise daily. The pt has been advised to call the office if there are any acute concerns about change in blood pressure readings at home. Hyperlipidemia - pt has been counseled about appropriate diet, exercise, and need for low fat food choices. I have discussed the need for the patient to take medications as prescribed. If the patient has negative side effects from the medication, they are to CALL the office and not abruptly discontinue the medication without discussion with a practicioner in the office. We will check labs in 3-6 months for follow up on the patient's chronic medical problem and to assure normal liver response to medications. Abnormal papsmear in August of 2011 - recommended repeat pap to document stability from November of 2011. 05/31/2012 Appointment: Evelyn Yeung WPtel: [id number] [facility] [place] Pap Only 05/31/2012 Patient Education: Patient Medication Summary Completed 05/31/2012 Patient Education: Hypertension Completed 05/31/2012 Visit Plan: Abnormal pap- repeat pa p completed, will call pt with results. Hypertension - well controlled at home pt to- continue with current medications, continue with no added salt diet. Pt has been encouraged to exercise daily. The pt has been advised to call the office if there are any acute concerns about change in blood pressure readings at home. 11/25/2011 Appointment: Evelyn Yeung WPtel: [facility] [place] Pap Only 11/25/2011 Patient Education: Patient Medication Summary Completed 11/25/2011 Patient Education: High Blood Pressure: Essential Hypertension Completed 11/25/2011 Appointment: Evelyn Yeung WPtel: [facility] [place] Pap Only 09/01/2011 Appointment: Evelyn Yeung WPtel: [address] [place], [place] [id number] [place] Pap Only 08/26/2011 Visit Plan: Hypertension - well con trolled - continue with current medications, continue with no added salt diet. Pt has been encouraged to exercise daily. The pt has been advised to call the office if there are any acute concerns about change in blood pressure readings at home. Repeat pap obtained today - will call pt with report, if negative, will have another repeat pap in 6 months, if negative, then resume yearly paps. Hot flashes - pt is not using the premarin vaginal cream as directed, she often skips weeks. Pt was instructed to increase the premarin to twice weekly and informed of the increased risk of not taking the medications as directed. pt will call if the increase in the premarin has not improved her hot flashes. 08/21/2011 Appointment: Evelyn Yeung WPtel: [address] [place], [place] [id number] [place] Pap Only 08/21/2011 Patient Education: Patient Medication Summary Completed 08/21/2011 Patient Education: High Blood Pressure: Essential Hypertension Completed 08/21/2011 Appointment: Evelyn Yeung WPtel: [address] [place], [place] [id number] [place] Other 04/16/2011 Visit Plan: Hypertension - well con trolled - continue with current medications, continue with no added salt diet. Pt has been encouraged to exercise daily. The pt has been advised to call the office if there are any acute concerns about change in blood pressure readings at home. Hyperlipidemia - pt has been counseled about appropriate diet, exercise, and need for low fat food choices. I have discussed the need for the patient to take medications as prescribed. If the patient has negative side effects from the medication, they are to CALL the office and not abruptly discontinue the medication without discussion with a practicioner in the office. We will check labs in 3-6 months for follow up on the patient's chronic medical problem and to assure normal liver response to medications. Well Adult Female - exam completed. Pap and breast exam completed. Pt will be called with results of her testing. She was advised to continue with yearly annual exams. Safe sex practices discussed during office visit today. Call if any abnormal gynecologic issues during the next year, otherwise, RTC yearly or prn. 04/14/2011 Appointment: [facility]el[facility] [address] [facility] [facility] Only 04/14/2011 Patient Education: Patient Medication Summary Completed 04/14/2011 Patient Education: High Blood Pressure: Essential Hypertension Completed 04/14/2011 Appointment: [facility]el[facility] [address] [facility] [place] Injection 12/19/2010 Patient Education: Patient Medication Summary Completed 12/19/2010 Visit Plan: Hypertension - well con trolled - continue with current medications, continue with no added salt diet. Pt has been encouraged to exercise daily. The pt has been advised to call the office if there are any acute concerns about change in blood pressure readings at home. Pain with intercourse- advised TREVA mabry to decrease discomfort. 10/14/2010 Appointment: [facility]eng [facility]Ptel: [address] [facility] [place] Other 10/14/2010 Patient Education: Patient Medication Summary Completed 10/14/2010 Instructions Comment . Hypertension - wel l controlled - continue with current medications, continue with no added salt diet. Pt has been encouraged to exercise daily. The pt has been advised to call the office if there are any acute concerns about change in blood pressure readings at home. Hyperlipidemia - pt has been counseled about appropriate diet, exercise, and need for low fat food choices. I have discussed the need for the patient to take medications as prescribed. If the patient has negative side effects from the medication, they are to CALL the office and not abruptly discontinue the medication without discussion with a practitioner in the office. We will check labs in 3-6 months for follow up on the patient's chronic medical problem and to assure normal liver response to medications. Sleep apnea - continue with cpap - pt doing well with the cpap. . Total Right knee - pt is here for a follow up from having surgery on her right knee. Pt states that she is doing well and is almost finished with home health and is doing physical therapy. Pt states that she recently had the camila removed. Surgical incision is healing well, steri strips in place, no erythema or warmth noted. Pt has a follow up appointment with her surgeon on Thursday. Pt is to notify clinic with any questions or concerns. Dr. Balderas- 11/11/18 2pm . Sebaceous cyst -refer to Dr Balderas for removal -call if becomes infected -patient verbalized understanding of plan. . Abnormal pap- repe at pap completed, will call pt with results. Hypertension - well controlled at home pt to- continue with current medications, continue with no added salt diet. Pt has been encouraged to exercise daily. The pt has been advised to call the office if there are any acute concerns about change in blood pressure readings at home. ALEVE 2 TABS TWICE D AILY WITH FOOD-CALL ME IF YOUR LEFT ARM PAIN DOES NOT RESOLVE . Hypertension - well controlled - jorden nue with current medications, continue with no added salt diet. Pt has been encouraged to exercise daily. The pt has been advised to call the office if there are any acute concerns about change in blood pressure readings at home. . Hypertension - wel l controlled - continue with current medications, continue with no added salt diet. Pt has been encouraged to exercise daily. The pt has been advised to call the office if there are any acute concerns about change in blood pressure readings at home. Sleep apnea - - continue with use of CPAP - pt has benefit and is tolerating the CPAP. Back pain - continue with supportive care, monitor symptoms. . Hypertension - wel l controlled - continue with current medications, continue with no added salt diet. Pt has been encouraged to exercise daily. The pt has been advised to call the office if there are any acute concerns about change in blood pressure readings at home. Repeat pap obtained today - will call pt with report, if negative, will have another repeat pap in 6 months, if negative, then resume yearly paps. Hot flashes - pt is not using the premarin vaginal cream as directed, she often skips weeks. Pt was instructed to increase the premarin to twice weekly and informed of the increased risk of not taking the medications as directed. pt will call if the increase in the premarin has not improved her hot flashes. . Hypertension - wel l controlled - continue with current medications, continue with no added salt diet. Pt has been encouraged to exercise daily. The pt has been advised to call the office if there are any acute concerns about change in blood pressure readings at home. Hyperlipidemia - pt has been counseled about appropriate diet, exercise, and need for low fat food choices. I have discussed the need for the patient to take medications as prescribed. If the patient has negative side effects from the medication, they are to CALL the office and not abruptly discontinue the medication without discussion with a practicioner in the office. We will check labs in 3-6 months for follow up on the patient's chronic medical problem and to assure normal liver response to medications. Abnormal papsmear in August of 2011 - recommended repeat pap to document stability from November of 2011. . Callus-right 4th t oe-debrided today in the office- instructed patient on wound care and to call if symptoms do not resolve or if any worse-patient verbalized understanding of plan. . Hypertension - wel l controlled - continue with current medications, continue with no added salt diet. Pt has been encouraged to exercise daily. The pt has been advised to call the office if there are any acute concerns about change in blood pressure readings at home. Knee pain - pt to have surgery tomorrow. Pt will need therapy as outpatient. . Hypertension - wel l controlled - continue with current medications, continue with no added salt diet. Pt has been encouraged to exercise daily. The pt has been advised to call the office if there are any acute concerns about change in blood pressure readings at home. Hyperlipidemia - pt has been counseled about appropriate diet, exercise, and need for low fat food choices. I have discussed the need for the patient to take medications as prescribed. If the patient has negative side effects from the medication, they are to CALL the office and not abruptly discontinue the medication without discussion with a practicioner in the office. We will check labs in 3-6 months for follow up on the patient's chronic medical problem and to assure normal liver response to medications. Check labs in May and agaiin in 6 months CHANGE LISINOPRIL TO 1/2 OF THE 40MG PILL ONE TIME DAILY.. HYPOTENSION - RECOMMENDED PT TO DECREASE THE LISIONPRIL TO 20MG ONE TIME DAILY. . Hypertension - wel l controlled - continue with current medications, continue with no added salt diet. Pt has been encouraged to exercise daily. The pt has been advised to call the office if there are any acute concerns about change in blood pressure readings at home. Hyperlipidemia - pt has been counseled about appropriate diet, exercise, and need for low fat food choices. I have discussed the need for the patient to take medications as prescribed. If the patient has negative side effects from the medication, they are to CALL the office and not abruptly discontinue the medication without discussion with a practitioner in the office. We will check labs in 3-6 months for follow up on the patient's chronic medical problem and to assure normal liver response to medications. [place] on 4th toe right foot lateral surface - removed with scalpel. Heat to left groin Muscle rub to area Call if pain worsens . Left groin pain-Dr Yeung in to julio castellanos patient-no palpable abnormality today in the office-recommend muscle rub to area and heat-call if pain does not resolve or if any worse. Patient verbalized understanding of plan. zyrtec or altaf continue benadryl cefdinir increase probiotic to BID call thursday with update . Bronchitis-cough Discussed natural and expected course of this diagnosis and need to alert me if symptoms do not follow expected course, or if any worse. RX sent to patient's pharmacy. . Cellulitis - jorden nue with oral antibiotics as previously directed, return to clinic as previously directed, call for acute change in symptoms, worsening redness, warmth, discharge. . Hypertension - wel l controlled - continue with current medications, continue with no added salt diet. Pt has been encouraged to exercise daily. The pt has been advised to call the office if there are any acute concerns about change in blood pressure readings at home. . Medicare Exam - to day we discussed the patients past history, immunizations, preventative exams/evaluations - colonoscopy, fecal occult blood testing, routine labs for renal function, glucose, cholesterol, osteoporosis evaluations, cardiovascular testing and cancer screenings. We have also discussed mental health and the signs/symptoms of depression. The patient was advised of home safety evaluations and the need to make sure that as the aging process continues, we need to be aware of different ways to make the home a safer place to reside. The patient has also been counseled that exercise is necessary - and of utmost importance as we age to help decrease fall risk and to maintain independece in the home. Today we discussed the need for the patient to create paperwork for Advanced directives as well as for the patient to provide this office with a copy of her DOPA paperwork for health care surrogate. . Hypertension - well controlled - continue with current medications, continue with no added salt diet. Pt has been encouraged to exercise daily. The pt has been advised to call the office if there are any acute concerns about change in blood pressure readings at home. . Hypertension - wel l controlled - continue with current medications, continue with no added salt diet. Pt has been encouraged to exercise daily. The pt has been advised to call the office if there are any acute concerns about change in blood pressure readings at home. Hyperlipidemia - pt has been counseled about appropriate diet, exercise, and need for low fat food choices. I have discussed the need for the patient to take medications as prescribed. If the patient has negative side effects from the medication, they are to CALL the office and not abruptly discontinue the medication without discussion with a practicioner in the office. We will check labs in 3-6 months for follow up on the patient's chronic medical problem and to assure normal liver response to medications. Well Adult Female - exam completed. Pap and breast exam completed. Pt will be called with results of her testing. She was advised to continue with yearly annual exams. Safe sex practices discussed during office visit today. Call if any abnormal gynecologic issues during the next year, otherwise, RTC yearly or prn. . Hypertension - wel l controlled - continue with current medications, continue with no added salt diet. Pt has been encouraged to exercise daily. The pt has been advised to call the office if there are any acute concerns about change in blood pressure readings at home. Right Axilla discomfort - discussed with stephanie today - suspect it is due to surgical clips. Hyperlipidemia - pt has been counseled about appropriate diet, exercise, and need for low fat food choices. I have discussed the need for the patient to take medications as prescribed. If the patient has negative side effects from the medication, they are to CALL the office and not abruptly discontinue the medication without discussion with a practitioner in the office. We will check labs in 3-6 months for follow up on the patient's chronic medical problem and to assure normal liver response to medications. . Hypertension - wel l controlled - continue with current medications, continue with no added salt diet. Pt has been encouraged to exercise daily. The pt has been advised to call the office if there are any acute concerns about change in blood pressure readings at home. xray . Left shoulder pain-patient has done rest, ice, and anti inflammatories-shoulder pain persists and causing weakness in left arm-will xray shoulder/humerus and proceed with MRI if indicated-patient verbalized understanding of plan. . Sinusitis - Pt has acute infection - pain in face, maxillary region, Pt informed to use decongestant, RX given to patient, sinus rinses also recommended. Call if symptoms do not show improvement. Allergies - chronic - recommended pt to use allergy medication as prescribed. Pt has been counseled as to the appropriate use of the medication. Pt to call if allergy symptoms are not controlled with the medication. If using nasal spray, instructions as follows: Nasal spray- use twice daily, one spray per nostril twice daily, after 30 minutes, rinse out nose with saline spray.. Use opposite hand per nostril to spray in the nasal steroid allergy spray. . Plantar wart - rig ht foot - cryotherapy - pt tolerated procedure well- Wound Instructions - Pt was instructed to keep the wound clean, wash with antibacterial soap, use triple antibiotic ointment, call if redness, pustular drainage, or any other acute concerns. Bruise to right forearm - monitor symptoms - pt is to notify clinic if no improvement . Plantar wart - rig ht foot - cryotherapy - pt tolerated procedure well- Wound Instructions - Pt was instructed to keep the wound clean, wash with antibacterial soap, use triple antibiotic ointment, call if redness, pustular drainage, or any other acute concerns. Bruise to right forearm - monitor symptoms - pt is to notify clinic if no improvement . Hypertension - unc ontrolled - the patient's medications have been modified as documented in the visit note. The patient has been counseled to cut back on salt in diet for a no added salt diet, low fat diet, start an exercise program with low weight bearing exercises and higher aerobic activity for heart health. The patient is to check blood pressure readings as an outpatient and either fax, call, or email the readings to the office next week for practitioner to review. The pt is to call for acute concerns. Pt to get coated aspirin. Pt to have labs checked today Sleep Apnea - continue with cpap . Hypertension - wel l controlled - continue with current medications, continue with no added salt diet. Pt has been encouraged to exercise daily. The pt has been advised to call the office if there are any acute concerns about change in blood pressure readings at home. Hyperlipidemia - pt has been counseled about appropriate diet, exercise, and need for low fat food choices. I have discussed the need for the patient to take medications as prescribed. If the patient has negative side effects from the medication, they are to CALL the office and not abruptly discontinue the medication without discussion with a practitioner in the office. We will check labs in 3-6 months for follow up on the patient's chronic medical problem and to assure normal liver response to medications. . Hypertension - wel l controlled - continue with current medications, continue with no added salt diet. Pt has been encouraged to exercise daily. The pt has been advised to call the office if there are any acute concerns about change in blood pressure readings at home. Pain with intercourse- advised TREVA mabry to decrease discomfort. . Hypertension - wel l controlled - continue with current medications, continue with no added salt diet. Pt has been encouraged to exercise daily. The pt has been advised to call the office if there are any acute concerns about change in blood pressure readings at home. Hyperlipidemia - pt has been counseled about appropriate diet, exercise, and need for low fat food choices. I have discussed the need for the patient to take medications as prescribed. If the patient has negative side effects from the medication, they are to CALL the office and not abruptly discontinue the medication without discussion with a practitioner in the office. We will check labs in 3-6 months for follow up on the patient's chronic medical problem and to assure normal liver response to medications. Bakers cyst of knee - recommended to stop hyper-extending the knee at night when she sleeps - need to try to sleep on right or left side or back, support knee at night when at rest. . Hypertension - wel l controlled - continue with current medications, continue with no added salt diet. Pt has been encouraged to exercise daily. The pt has been advised to call the office if there are any acute concerns about change in blood pressure readings at home. Take probiotic while on antibiotic. If you develop ulcerations on your face, ANY burning, itching, pain, call office IMMEDIATELY and return immediately. . Cellulitis - RX to pt's pharmacy. Ret urn to clinic or call for acute change in symptoms, worsening redness, warmth, discharge. ACYCLOVIR 800MG TID X 10 DAYS ABDOMINAL ULTRASOUND . Oral aphthae-start acyclovir Abdominal pain-LUQ and LLQ-schedule abdominal ultrasound . UYH-[id number] changes Callus right toe -healed-no further treatment indicated . Hypertension - wel l controlled - continue with current medications, continue with no added salt diet. Pt has been encouraged to exercise daily. The pt has been advised to call the office if there are any acute concerns about change in blood pressure readings at home. Hyperlipidemia - pt has been counseled about appropriate diet, exercise, and need for low fat food choices. I have discussed the need for the patient to take medications as prescribed. If the patient has negative side effects from the medication, they are to CALL the office and not abruptly discontinue the medication without discussion with a practitioner in the office. We will check labs in 3-6 months for follow up on the patient's chronic medical problem and to assure normal liver response to medications. . Hypertension - wel l controlled - continue with current medications, continue with no added salt diet. Pt has been encouraged to exercise daily. The pt has been advised to call the office if there are any acute concerns about change in blood pressure readings at home. Improved granulation tissue in vaginal tissue - no need for repeat exam until 2 years. Allergic Reaction/Hi ves - discussed diagnosis with patient, need to avoid allergen, and when/if the patient should go to the emergency room. Pt was instructed to take benadryl 25mg q 6 hours x 48 hours, and pepcid 20mg bid x 48 hours, pt also given RX for prednisone taper. . Allergic Reaction/Hives - discussed di agnosis with patient, need to avoid allergen, and when/if the patient should go to the emergency room. Pt was instructed to take benadryl 25mg q 6 hours x 48 hours, and pepcid 20mg bid x 48 hours, pt also given RX for prednisone taper. Rash- RX sent - The patient is to call for any change in symptoms, increase in size of the lesion, increase in pain, worsening redness, warmth, discharge. . URI - Pt advised t o increase fluids, vitamin C. Discussed natural and expected course of this diagnosis and need to alert me if symptoms do not follow expected course, or if any worse. RX sent to patient's pharmacy. Allergies - chronic - recommended pt to use allergy medication as prescribed. Pt has been counseled as to the appropriate use of the medication. Pt to call if allergy symptoms are not controlled with the medication. If using nasal spray, instructions as follows: Nasal spray- use twice daily, one spray per nostril twice daily, after 30 minutes, rinse out nose with saline spray.. Use opposite hand per nostril to spray in the nasal steroid allergy spray. . Hypertension - wel l controlled - continue with current medications, continue with no added salt diet. Pt has been encouraged to exercise daily. The pt has been advised to call the office if there are any acute concerns about change in blood pressure readings at home. Hyperlipidemia - pt has been counseled about appropriate diet, exercise, and need for low fat food choices. I have discussed the need for the patient to take medications as prescribed. If the patient has negative side effects from the medication, they are to CALL the office and not abruptly discontinue the medication without discussion with a practitioner in the office. We will check labs in 3-6 months for follow up on the patient's chronic medical problem and to assure normal liver response to medications.
--- OUTSIDE RECORDS SUMMARY | 2019-07-08 08:06 | XMS REPORT | CCD ---
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 10/14/[address]: 353510735 Never smoker 10/14/[address]: 470315511 Never drinks alcohol 10/14/2010 Has the patient [...] 40 mg/mL wander pension for injection RxNorm: 1769057 1 Milliliter(s) Inj 07/08/2018 07/08/2018 In active Zithromax Z-Doroteo 250 mg tablet RxNorm: 519967 1 Tablet(s) PO UD 07/08/2018 09/05/2018 Inactive metoprolol succinate ER 50 mg tablet,extended release 24 hr RxNorm: 390032 Tablet(s) TAKE 1 TABLET TWICE DAILY 05/27/2018 06/25/2018 Inactive metoprolol succinate ER 50 mg tablet,extended release 24 hr RxNorm: 663889 Tablet(s) TAKE 1 TABLET TWICE DAILY 05/25/2018 05/26/2018 Inactive potassium chloride E R 10 mEq capsule,extended release RxNorm: 189687 1 Capsule(s) PO TIW TAKE 1 CAPSULE THREE TIMES WEEKLY 04/23/2018 04/17/2019 Active three times weekly- sent on 04/21/18- requested again 04/23/18 potassium chloride E R 10 mEq capsule,extended release RxNorm: 032827 1 Capsule(s) PO TIW TAKE 1 CAPSULE THREE TIMES WEEKLY 04/21/2018 04/22/2018 Inactive thre e times weekly chlorthalidone 25 mg tablet RxNorm: 872204 Tablet(s) TAKE 1 TABL ET EVERY MORNING 03/26/2018 03/20/2019 Ac tive simvastatin 20 mg ta blet RxNorm: 568660 Tablet(s) TAKE 1 TABL ET EVERY NIGHT 03/26/2018 03/20/2019 Ac tive lisinopril 20 mg tablet RxNorm: 751813 1 Tablet(s) PO daily 02/11/2018 05/06/2019 Active this is an update on her RX - she is onl y taking 20mg daily -please delete other rx's lisinopril 20 mg tablet RxNorm: 193219 1 Tablet(s) PO daily 11/20/2017 02/10/2018 Inactive lisinopril 40 mg tablet RxNorm: 167062 Tablet(s) TAKE 1 TABLET EVERY DAY 11/16/2017 11/19/2017 In active metoprolol succinate ER 50 mg tablet,extended release 24 hr RxNorm: 185393 Tablet(s) TAKE 1 TABLET TWICE DAILY 06/05/2017 05/24/2018 Inactive metoprolol succinate ER 50 mg tablet,extended release 24 hr RxNorm: 132021 Tablet(s) TAKE 1 TABLET TWICE DAILY 06/05/2017 06/04/2017 Inactive potassium chloride E R 10 mEq capsule,extended release RxNorm: 726919 1 Capsule(s) PO TIW TAKE 1 CAPSULE THREE TIMES WEEKLY 05/07/2017 04/20/2018 Inactive thre e times weekly potassium chloride E R 10 mEq capsule,extended release RxNorm: 405340 1 Capsule(s) PO daily TAKE 1 CAPSULE THREE TIMES WEEKLY 05/05/2017 05/06/2017 Inactive metoprolol succinate ER 50 mg tablet,extended release 24 hr RxNorm: 127296 Tablet(s) TAKE 1 TABLET TWICE DAILY 05/04/2017 06/04/2017 Inactive Phenergan with Codei ne Syrup RxNorm: 5-10 Milliliter(s) PO QID a s needed cough 05/01/2017 10/31/2018 In active cefdinir 300 mg capsule RxNorm: 215503 1 Capsule(s) PO BID 05/01/2017 05/07/2017 Inactive Zithromax Z-Doroteo 250 mg tablet RxNorm: 188761 1 Tablet(s) PO UD 04/24/2017 06/22/2017 Inactive Phenergan with Codei ne Syrup RxNorm: 5-10 Milliliter(s) PO QID a s needed cough 04/24/2017 04/30/2017 In active prednisone 20 mg tablet RxNorm: 124105 2 Tablet(s) PO daily 04/24/2017 04/28/2017 Inactive chlorthalidone 25 mg tablet RxNorm: 627988 Tablet(s) TAKE 1 TABL ET EVERY MORNING 04/13/2017 03/25/2018 In active simvastatin 20 mg ta blet RxNorm: 201727 Tablet(s) TAKE 1 TABL ET EVERY NIGHT 04/08/2017 03/25/2018 In active Kenalog 40 mg/mL wander pension for injection RxNorm: 6557261 1 Milliliter(s) Inj 03/11/2017 03/11/2017 In active prednisone 20 mg tablet RxNorm: 675910 2 Tablet(s) PO daily 03/11/2017 03/15/2017 Inactive simvastatin 20 mg ta blet RxNorm: 538382 TAKE 1 TABLET EVERY DAY 01/02/2017 04/07/2017 Inactive lisinopril 40 mg tablet RxNorm: 506729 TAKE 1 TABLET EVERY DAY 11/24/2016 08/20/2017 Inactive metoprolol succinate ER 50 mg tablet,extended release 24 hr RxNorm: 154849 TAKE 1 TABLET TWICE DAILY 11/24/2016 05/03/2017 Inactive fluconazole 150 mg t ablet RxNorm: 439576 1 Tablet(s) PO daily prn yeast infection symptoms 10/16/2016 10/25/2016 Inactive potassium chloride E R 10 mEq capsule,extended release RxNorm: 474431 TAKE 1 CAPSULE THREE TIMES WEEKLY 08/12/2016 05/04/2017 Inactive chlorthalidone 25 mg tablet RxNorm: 264680 TAKE 1 TABLET EVERY M ORNING 06/30/2016 04/12/2017 In active simvastatin 20 mg ta blet RxNorm: 321572 TAKE 1 TABLET EVERY DAY 01/21/2016 01/01/2017 Inactive lisinopril 40 mg tablet RxNorm: 787207 1/2 Tablet(s) daily 12/18/2015 11/23/2016 Inactive metoprolol succinate ER 50 mg tablet,extended release 24 hr RxNorm: 382245 Tablet(s) TAKE 1 TABLET TWICE DAILY 12/13/2015 11/23/2016 Inactive metoprolol succinate ER 50 mg tablet,extended release 24 hr RxNorm: 041254 Tablet(s) TAKE 1 TABLET TWICE DAILY 12/13/2015 12/12/2015 Inactive metoprolol succinate ER 50 mg tablet,extended release 24 hr RxNorm: 354660 Tablet(s) TAKE 1 TABLET TWICE DAILY 11/13/2015 12/12/2015 Inactive Keflex 500 mg capsule RxNorm: 753590 1 Capsule(s) PO TID 11/13/2015 11/19/2015 Inactive chlorthalidone 25 mg tablet RxNorm: 955472 1 Tablet(s) PO QAM 08/08/2015 06/29/2016 Inactive potassium chloride E R 10 mEq capsule,extended release RxNorm: 958565 1 Capsule(s) PO TIW 08/08/2015 08/01/2016 Inactive potassium chloride E R 10 mEq capsule,extended release RxNorm: 146674 1 Capsule(s) PO TIW 06/20/2015 08/07/2015 Inactive lisinopril 40 mg tablet RxNorm: 519449 TAKE 1 TABLET EVERY DAY 2015 12/17/2015 Inactive potassium chloride E R 10 mEq capsule,extended release RxNorm: 616945 1 Capsule(s) PO TIW 2015 06/19/2015 Inactive chlorthalidone 25 mg tablet RxNorm: 158862 1 Tablet(s) PO QAM 06/05/2015 08/07/2015 Inactive potassium chloride E R 10 mEq capsule,extended release RxNorm: 118095 1 Capsule(s) PO TIW 06/05/2015 06/17/2015 Inactive lisinopril 40 mg tablet RxNorm: 518009 1/2 Tablet(s) PO BID 05/07/2015 06/17/2015 Inactive amoxicillin 500 mg t ablet RxNorm: 250457 4 Tablet(s) PO one ho ur prior to dental appts UD 05/07/2015 10/08/2015 Inactive amoxicillin 500 mg t ablet RxNorm: 884662 4 Tablet(s) PO one ho ur prior to dental appts 05/04/2015 05/06/2015 Inactive lisinopril 40 mg tablet RxNorm: 745620 1/2 Tablet(s) PO BID 05/04/2015 05/06/2015 Inactive amoxicillin 500 mg t ablet RxNorm: 088486 4 Tablet(s) PO one ho ur prior to dental appts 05/01/2015 05/03/2015 Inactive lisinopril 40 mg tablet RxNorm: 683531 1/2 Tablet(s) PO BID TAKE 1 TABLET DAILY 05/01/2015 05/03/2015 In active metoprolol succinate ER 50 mg tablet,extended release 24 hr RxNorm: 981971 TAKE 1 AND 1/2 TABLETS TWICE DAILY 04/16/2015 11/12/2015 Inactive simvastatin 20 mg ta blet RxNorm: 012096 TAKE 1 TABLET EVERY DAY 04/16/2015 01/10/2016 Inactive acyclovir 800 mg tablet RxNorm: 694717 1 Tablet(s) PO TID 11/17/2014 11/26/2014 Inactive acyclovir 400 mg tablet RxNorm: 410131 2 Tablet(s) PO QID 10/06/2014 10/05/2014 Inactive acyclovir 400 mg tablet RxNorm: 249377 2 Tablet(s) PO QID 10/06/2014 10/15/2014 Inactive cephalexin 500 mg ca psule RxNorm: 171752 1 Capsule(s) PO TID 08/31/2014 09/04/2014 Inactive Bactroban 2 % topica l ointment RxNorm: 212691 1 Application TOP BID 08/31/2014 10/08/2015 Inactive Bactroban 2 % topica l ointment RxNorm: 850450 1 Application TOP BID 08/31/2014 09/04/2014 Inactive simvastatin 20 mg ta blet RxNorm: 074208 Tablet(s) TAKE 1 TABL ET DAILY 03/31/2014 04/15/2015 In active lisinopril 40 mg tablet RxNorm: 921552 Tablet(s) TAKE 1 TABLET DAILY 03/31/2014 04/30/2015 In active metoprolol succinate ER 50 mg tablet,extended release 24 hr RxNorm: 543565 Tablet(s) TAKE ONE AND ONE-HALF TABLETS (75 MG) TWICE A DAY 03/09/2014 04/15/2015 Inactive Prio r authorization approved for this med until 03-09-2015 metoprolol succinate ER 50 mg tablet,extended release 24 hr RxNorm: 792887 Tablet(s) TAKE ONE AND ONE-HALF TABLETS (75 MG) TWICE A DAY 03/06/2014 03/08/2014 Inactive simvastatin 20 mg ta blet RxNorm: 913869 TAKE 1 TABLET DAILY 01/24/2014 03/30/2014 Inactive lisinopril 40 mg tablet RxNorm: 869331 TAKE 1 TABLET DAILY 01/24/2014 03/30/2014 Inactive simvastatin 20 mg ta blet RxNorm: 272025 TAKE 1 TABLET DAILY 10/24/2013 01/23/2014 Inactive cephalexin 500 mg ca psule RxNorm: 787758 1 Capsule(s) PO TID 10/04/2013 10/08/2013 Inactive metoprolol succinate ER 50 mg tablet,extended release 24 hr RxNorm: 582550 TAKE ONE AND ONE-HALF TABLETS (75 MG) TWICE A DAY 09/16/2013 03/05/2014 Inactive simvastatin 20 mg ta blet RxNorm: 385658 Tablet(s) PO TAKE 1 T ABLET DAILY 04/21/2013 10/23/2013 In active metoprolol succinate ER 50 mg tablet,extended release 24 hr RxNorm: 174570 Tablet(s) PO TAKE ONE AND ONE-HALF TABLETS (75 MG) TWICE A DAY 03/24/2013 09/15/2013 Inactive metoprolol succinate ER 50 mg tablet,extended release 24 hr RxNorm: 999897 Tablet(s) PO TAKE ONE AND ONE-HALF TABLETS (75 MG) TWICE A DAY 12/20/2012 03/23/2013 Inactive lisinopril 40 mg tablet RxNorm: 641227 Tablet(s) PO TAKE 1 TABLET DAILY 11/18/2012 01/23/2014 In active simvastatin 20 mg ta blet RxNorm: 859357 Tablet(s) PO TAKE 1 T ABLET DAILY 08/06/2012 04/20/2013 In active metoprolol succinate ER 50 mg tablet,extended release 24 hr RxNorm: 718312 Tablet(s) PO TAKE ONE AND ONE-HALF TABLETS (75 MG) TWICE A DAY 06/15/2012 12/19/2012 Inactive metoprolol succinate ER 50 mg tablet,extended release 24 hr RxNorm: 313295 Tablet(s) PO TAKE ONE AND ONE-HALF TABLETS (75 MG) TWICE A DAY 03/01/2012 06/14/2012 Inactive Diflucan 150 mg tablet RxNorm: 019466 1 Tablet(s) PO daily 12/03/2011 12/02/2011 Inactive Diflucan 150 mg tablet RxNorm: 532423 1 Tablet(s) PO daily 12/03/2011 12/07/2011 Inactive Diflucan 150 mg tablet RxNorm: 473616 1 Tablet(s) PO daily 12/03/2011 12/02/2011 Inactive Influenza Virus Vacc ine 0.5 mL RxNorm: IM 11/25/2011 11/25/2011 Inactive metoprolol succinate ER 50 mg tablet,extended release 24 hr RxNorm: 657707 Tablet(s) PO 09/16/2011 02/29/2012 Inactive TAKE ONE AND ONE-HALF TABLETS (75 MG) TW ICE A DAY lisinopril 40 mg tablet RxNorm: 604007 Tablet(s) PO 08/25/2011 11/17/2012 Inactive TAKE 1 TABLET DAILY simvastatin 20 mg ta blet RxNorm: 189848 Tablet(s) PO 07/31/2011 08/05/2012 Inactive TAKE 1 TABLET DAILY Influenza Virus Vacc ine 0.5 mL RxNorm: 1/2 Milliliter(s) IM 12/19/2010 12/19/2010 Inactive metoprolol succinate ER 50 mg tablet,extended release 24 hr RxNorm: 380175 Tablet(s) PO 12/02/2010 09/15/2011 Inactive TAKE ONE AND ONE-HALF TABLETS (75 MG) TW ICE A DAY Calcium 600 + D(3) 6 00 mg (1,500 mg)-400 unit Tab RxNorm: 454853 1 Tablet(s) PO daily No Start Date Active Tylenol PM Extra Str ength 25 mg-500 mg Tab RxNorm: 2062064 1 Tablet(s) PO QHS No Start Date Active Probiotic & Acidophi lesa oral RxNorm: oral No Start D ate Active Fish Oil 1,200 mg-14 4 mg-216 mg Cap RxNorm: 1 Capsule(s) PO BID No Start Date Active 1400mg multivitamin Cap RxNorm: 1 Capsule(s) PO daily No Start Date Active Aspirin Childrens 81 mg Chewable Tab RxNorm: 784080 1 Tablet(s) PO daily No Start Date Active premarin 0.5% Vagina l cream RxNorm: [address] art Date 08/30/2014 Inactive simvastatin 20 mg Tab RxNorm: 903552 1 Tablet(s) PO daily No Start Date 07/30/2011 Inactive lisinopril 40 mg Tab RxNorm: 120562 1 Tablet(s) PO daily No Start Date 08/24/2011 Inactive Fish Oil 340 mg-1,00 0 mg Cap RxNorm: 1 Capsule(s) PO TID No Start Date 04/14/2011 Inactive [place] 20 mg Tab RxNorm: 868542 1 Tablet(s) PO daily No Start Date 04/14/2011 Inactive metoprolol succinate ER 50 mg 24 hr Tab RxNorm: 210559 1 &1/2 Tablet(s) PO d aily No Start Date 12/01/2010 Inactive Medication Administered Medication Codes Instruc tions Start Date Status Kenalog 40 mg/mL suspension for injection RxNorm: 8615055 1Milliliter 07/08/2018 N o longer Active Kenalog 40 mg/mL suspension for injection RxNorm: 0475115 1Milliliter 03/11/2017 N o longer Active Influenza Virus Vaccine 0.5 mL RxNorm: 11/25/2011 No longer Active Influenza Virus Vaccine 0.5 mL RxNorm: 1/2Milliliter 12/19/2010 No longer Active Immunizations Vaccine Codes Date Status Influenza CVX: 141 10/23 completed Influenza CVX: [...] eyelid pain 10/04/2013 hypertension 05/31/2013 ~generic 11/30/2012 Adirana ent is here for pelvic exam. Has [...] 30.2 pg 10/17/2016 Cbc With Differential Ord2 Comal% 6.3 % 10/17/2016 Cbc With Differential Ord2 [...] 1.37 K/ul 10/17/2016 Cbc With Differential Ord2 Comal ABS# 0.3 K/ul 10/17/2016 Cbc With Differential Ord2 Eos ABS# 0.2 K/ul 10/17/2016 Cbc With Differential Ord2 Baso ABS# 0.0 K/ul 10/17/2016 Comp Metabolic Myn379 NA 141 mEq/L 10/17/2016 Comp Metabolic Krf494 K 3.9 mEq/L 10/17/2016 Comp Metabolic Evi149 CL 105 mEq/L 10/17/2016 Comp Metabolic Uyo775 CO2 26.0 mEq/L 10/17/2016 Comp Metabolic Xej563 AN ION GAP 14 10/17/2016 Comp Metabolic Wmr885 GL UCOSE 100 mg/dL 10/17/2016 Comp Metabolic Jzd764 Cr eat 1.0 mg/dL 10/17/2016 Comp Metabolic Pzz740 eG FR 61 ml/min/1.73m2 10/17 Comp Metabolic Nom821 BUN 17 mg/dL 10/17/2016 Comp Metabolic Kvg331 B/ C Ratio 17.7 Ratio 10/17/2016 Comp Metabolic Jal488 CA LCIUM 9.8 mg/dL 10/17/2016 Comp Metabolic Ndp829 AL K PHOS 44 U/L 10/17/2016 Comp Metabolic Xki715 T(SGOT) 15 U/L 10/17/2016 Comp Metabolic Fym312 AL T(SGPT) 16 U/L 10/17/2016 Comp Metabolic Vhe586 BI LI T 0.5 mg/dL 10/17/2016 Comp Metabolic Afp690 AL BUMIN 4.3 g/dL 10/17/2016 Comp Metabolic Iab242 TP RO 6.5 g/dL 10/17/2016 Comp Metabolic Xmd535 GL OB 2.3 g/dL 10/17/2016 Comp Metabolic Xmh427 A/ G Ratio 1.9 Ratio 10/17/2016 Comp Metabolic Wkr586 Os mo 283 mOsmo 10/17/2016 Lipid Ord30 CHOL 134 mg/dL 10/17/2016 Lipid Ord30 HDL 48.0 mg/dl 10/17/2016 Lipid Ord30 TRIG 123 mg/dL 10/17/2016 Lipid Ord30 LDL 61 mg/dL 10/17/2016 Lipid Ord30 C/HDL 2.8 Ratio 10/17/2016 Comp Metabolic Nps429 NA 140 mEq/L 02/28/2016 Comp Metabolic Fdu988 K 3.9 mEq/L 02/28/2016 Comp Metabolic Jwd378 CL 102 mEq/L 02/28/2016 Comp Metabolic Wjx639 CO2 31.0 mEq/L 02/28/2016 Comp Metabolic Iiq175 AN ION GAP 11 02/28/2016 Comp Metabolic Ugb979 GL UCOSE 87 mg/dL 02/28/2016 Comp Metabolic Ghm306 Cr eat 1.2 mg/dL 02/28/2016 Comp Metabolic Vfl916 eG FR 45 ml/min/1.73m2 02/27 Comp Metabolic Lau446 BUN 23 mg/dL 02/28/2016 Comp Metabolic Bow786 B/ C Ratio 18.5 Ratio 02/28/2016 Comp Metabolic Kdh725 CA LCIUM 9.2 mg/dL 02/28/2016 Comp Metabolic Ktg220 AL K PHOS 53 U/L 02/28/2016 Comp Metabolic Rks507 T(SGOT) 16 U/L 02/28/2016 Comp Metabolic Jya034 AL T(SGPT) 17 U/L 02/28/2016 Comp Metabolic Yqr314 BI LI T 0.5 mg/dL 02/28/2016 Comp Metabolic Jdp818 AL BUMIN 4.2 g/dL 02/28/2016 Comp Metabolic Blq048 TP RO 6.7 g/dL 02/28/2016 Comp Metabolic Uee047 GL OB 2.5 g/dL 02/28/2016 Comp Metabolic Gca172 A/ G Ratio 1.7 Ratio 02/28/2016 Comp Metabolic Vjg150 Os mo 282 mOsmo 02/28/2016 Cbc With [...] 30.5 pg 02/28/2016 Cbc With Differential Ord2 Comal% 5.6 % 02/28/2016 Cbc With Differential Ord2 [...] 1.21 K/ul 02/28/2016 Cbc With Differential Ord2 Comal ABS# 0.3 K/ul 02/28/2016 Cbc With Differential Ord2 Eos ABS# 0.2 K/ul 02/28/2016 Cbc With Differential Ord2 Baso ABS# 0.0 K/ul 02/28/2016 Lipid Ord30 CHOL 141 mg/dL 02/28/2016 Lipid Ord30 HDL 48.0 mg/dl 02/28/2016 Lipid Ord30 TRIG 144 mg/dL 02/28/2016 Lipid Ord30 LDL 64 mg/dL 02/28/2016 Lipid Ord30 C/HDL 2.9 Ratio 02/28/2016 Tsh Ord6 hTSH II 2.22 uIU/mL 02/28/2016 Culture Urine [id number] URI NE CULTURE SEE NOTES 11/15/2015 Urine [...] Ord30 C/HDL 2.7 Ratio 03/19/2015 Comp Metabolic Fyp396 NA 139 mEq/L 03/19/2015 Comp Metabolic Lid868 K 4.0 mEq/L 03/19/2015 Comp Metabolic Nbw663 CL 105 mEq/L 03/19/2015 Comp Metabolic Qfd458 CO2 29.0 mEq/L 03/19/2015 Comp Metabolic Uoh455 AN ION GAP 9 03/19/2015 Comp Metabolic Cvd840 GL UCOSE 90 mg/dL 03/19/2015 Comp Metabolic Isk674 Cr eat 0.8 mg/dL 03/19/2015 Comp Metabolic Qib715 eG FR 80 ml/min/1.73m2 03/19 Comp Metabolic Dfg092 BUN 14 mg/dL 03/19/2015 Comp Metabolic Elq903 B/ C Ratio 18.4 Ratio 03/19/2015 Comp Metabolic Sqn225 CA LCIUM 9.5 mg/dL 03/19/2015 Comp Metabolic Tht972 AL K PHOS 39 U/L 03/19/2015 Comp Metabolic Sei001 T(SGOT) 17 U/L 03/19/2015 Comp Metabolic Jne126 AL T(SGPT) 22 U/L 03/19/2015 Comp Metabolic Qzr171 BI LI T 0.5 mg/dL 03/19/2015 Comp Metabolic Whi777 AL BUMIN 4.2 g/dL 03/19/2015 Comp Metabolic Eok711 TP RO 6.3 g/dL 03/19/2015 Comp Metabolic Tqe470 GL OB 2.1 g/dL 03/19/2015 Comp Metabolic Qvs144 A/ G Ratio 2.0 Ratio 03/19/2015 Comp Metabolic Puz249 Os mo 278 mOsmo 03/19/2015 Tsh Ord6 [...] 29.9 pg 03/19/2015 Cbc With Differential Ord2 Comal% 5.1 % 03/19/2015 Cbc With Differential Ord2 MCHC 33.4 pg 03/19/2015 Cbc With Differential Ord2 Eos% 2.6 % 03/19/2015 Cbc With Differential Ord2 PLT 219 K/ul 03/19/2015 Cbc With Differential Ord2 Baso% 0.4 % 03/19/2015 Cbc With Differential Ord2 RDW 13.9 % 03/19/2015 Cbc With Differential Ord2 Neut ABS# 2.65 K/ul 03/19/2015 Cbc With Differential Ord2 Lymph ABS# 1.52 K/ul 03/19/2015 Cbc With Differential Ord2 Comal ABS# 0.2 K/ul 03/19/2015 Cbc With Differential [...] Ord30 C/HDL 3.2 Ratio 09/29/2014 Comp Metabolic Ayo012 NA 139 mEq/L 09/29/2014 Comp Metabolic Bau437 K 4.1 mEq/L 09/29/2014 Comp Metabolic Psx972 CL 104 mEq/L 09/29/2014 Comp Metabolic Orj203 CO2 31.0 mEq/L 09/29/2014 Comp Metabolic Haj980 AN ION GAP 8 09/29/2014 Comp Metabolic Fjl941 GL UCOSE 96 mg/dL 09/29/2014 Comp Metabolic Zlf575 Cr eat 0.8 mg/dL 09/29/2014 Comp Metabolic Zih801 eG FR 71 ml/min/1.73m2 09/29 Comp Metabolic Wxh442 BUN 13 mg/dL 09/29/2014 Comp Metabolic Ldo269 B/ C Ratio 15.5 Ratio 09/29/2014 Comp Metabolic Koc110 CA LCIUM 9.5 mg/dL 09/29/2014 Comp Metabolic Pcb099 AL K PHOS 42 U/L 09/29/2014 Comp Metabolic Zpy870 T(SGOT) 20 U/L 09/29/2014 Comp Metabolic Mkz802 AL T(SGPT) 26 U/L 09/29/2014 Comp Metabolic Igd425 BI LI T 0.5 mg/dL 09/29/2014 Comp Metabolic Ocd507 AL BUMIN 4.4 g/dL 09/29/2014 Comp Metabolic Rki276 TP RO 6.5 g/dL 09/29/2014 Comp Metabolic Srn404 GL OB 2.1 g/dL 09/29/2014 Comp Metabolic Nav486 A/ G Ratio 2.1 Ratio 09/29/2014 Comp Metabolic Acg311 Os mo 278 mOsmo 09/29/2014 Tsh Ord6 [...] lips 02/11/2018 None Full Exam - General 1994 Ears/Nose/Throat lips/teeth/gingiva Overall: normal dentition 02/11/2018 None Full Exam - General 1994 Ears/Nose/Throat oral cavity/pharynx/larynx Overall: oral mucosa clear 02/11/2018 None Full Exam - General 1994 Ears/Nose/Throat oral cavity/pharynx/larynx Overall: oropharyngeal mucosa clear 02/11/2018 None Full Exam - General 1994 Ears/Nose/Throat oral cavity/pharynx/larynx Overall: no masses 02/11/2018 [...] aphasia 08/13/2017 None Full Exam - General [facility] Psychiatric speech Overall: normal quality, quantity, r [...] clear 02/22/2016 None Full Exam - General 1995 Ears/Nose/Throat oral cavity/pharynx/larynx Overall: oropharyngeal mucosa clear 02/22/2016 None Full Exam - General 1995 Ears/Nose/Throat oral cavity/pharynx/larynx Overall: hypopharynx benign 02/22/2016 None Full Exam - General 1995 Ears/Nose/Throat oral cavity/pharynx/larynx Overall: no masses 02/22/2016 [...] clear 11/30/2012 None Full Exam - General 1995 [...] tender 11/30/2012 None Full Exam - General 1994 Chest/Breast breast and axillae palpation Overall: axillae non- tender 11/30/2012 None Full Exam - General 1994 Chest/Breast breast and axillae palpation Overall: no nipple discharge 11/30/2012 None Full Exam - General 1994 [...] tender 05/31/2012 None Full Exam - General 1995 Chest/Breast breast and axillae palpation Overall: no nipple discharge 05/31/2012 None Full Exam - General 1995 Chest/Breast breast/chest inspection Overall: breasts to symmetric and without lesions 05/31/2012 None Full Exam - General 1995 Chest/Breast breast/chest inspection Overall: normal chest shape 05/31/2012 None Full Exam - General 1994 Abdomen abdominal exam Overall: no tenderness 05/31/2012 None Full Exam - General 1994 Abdomen abdominal exam Overall: normal bowel sounds 05/31/2012 None Full Exam - General 1995 Abdomen [...] retractions 11/25/2011 None Full Exam - General 1994 Respiratory respiratory effort/rhythm Overall: normal rate 11/25/2011 [...] lesions 11/25/2011 None Full Exam - General 1995 Genitourinary adnexa/parametria Overall: surgically absent 11/25/2011 None Full Exam - General 1995 Genitourinary urethra Overall: no masses 11/25/2011 None Full Exam - General 1995 Musculoskeletal head and neck Overall: head atraumatic 11/25/2011 None Full Exam - General 1995 Musculoskeletal head and neck Overall: cervical spine benign 11/25/2011 None Full Exam - General 1994 Psychiatric orientation/consciousness Overall: oriented to person, place and time 11/25/2011 None Full Exam - General 1995 Psychiatric mood and affect Overall: normal mood and affect 11/25/2011 None Full Exam - General 1995 Psychiatric mood and affect Mood: happy 11/25/2011 None Full Exam - General 1994 Abdomen abdominal exam Overall: no tenderness 11/25/2011 None Full Exam - General 1995 Ears/Nose/Throat oral cavity/pharynx/larynx Overall: oropharyngeal mucosa clear 08/21/2011 None Full Exam - General 1995 Ears/Nose/Throat oral cavity/pharynx/larynx Overall: no masses 08/21/2011 [...] distress 08/21/2011 None Full Exam - General 1994 Constitutional general appearance Overall: well nourished 08/21/2011 None Full Exam - General 1994 Eyes pupils and irises Overall: pupils equal, round, reactive to light and accomodation 08/21/2011 None Full Exam - General 1994 [...] tender 04/14/2011 None Full Exam - General 1995 Chest/Breast [...] 04/14/2011 None Full Exam - General 1994 Neck thyroid Overall: nontender 04/14 None Full Exam - General 1995 Neck thyroid Overall: normal size None Full Exam - General 1995 Neck thyroid Overall: no mass lesions 04/14/2011 None Full Exam - General 1995 Neck thyroid Overall: normal consistency 04/14/2011 None Full Exam - General 1995 Genitourinary adnexa/parametria Overall: surgically absent 04/14/2011 None Full Exam - General 1994 Genitourinary cervix Overall: surgically absent 04/14/2011 None [...] PRSV 4 VA L 3 YRS+ CPT-4: 15585 11/01/2018 IMMUNIZATION ADMIN CPT- 4: 81901 11/01/2018 TRIAMCINOLONE ACET I [place] NOS CPT-4: J3301 07/08/2018 THER/PROPH/DIAG INJ SC/IM CPT-4: 91671 07/08/2018 FLU VAC NO PRSV 4 VA L 3 YRS+ CPT-4: 59741 10/23/2017 ADMIN INFLUENZA VIRU S VAC CPT-4: G0008 10/23/2017 THER/PROPH/DIAG INJ SC/IM CPT-4: 05176 03/11/2017 TRIAMCINOLONE ACET I [place] NOS CPT-4: J3301 03/11/2017 FLU VAC NO PRSV 4 VA L 3 YRS+ CPT-4: 78155 12/09/2016 ADMIN INFLUENZA VIRU S VAC CPT-4: G0008 12/09/2016 URINALYSIS NONAUTO W /O SCOPE CPT-4: 64735 11/13/2015 IMMUNIZATION ADMIN CPT- 4: 00698 11/13/2015 FLU VACC 4 [place] 3 YRS PLUS IM SNOMED CT: [id number] CPT-4: 08816 11/13/2015 PPPS, SUBSEQ VISIT CPT- 4: G0439 10/10/2015 IMMUNIZATION ADMIN CPT- 4: 08090 11/25/2011 Influenza Virus Vacc ine, Split Virus, >3 Yrs, IM CPT-4: 70570 11/25/2011 ADMIN INFLUENZA VIRU S VAC CPT-4: G0008 12/19/2010 FLULAVAL VACC, 3 YRS & >, IM CPT-4: Q2036 12/19/2010 Vital Signs Date Vital 11/01/2018 Blood Pressure 1: 138/88 Code: 8480-6 BMI: 33.7 Code: 30521-2 Heart Rate 1: 75 bpm Height: 5'3" SpO2: 96% Weight: 190 lbs 09/06/2018 Blood Pressure 1: 118/70 Code: 8480-6 BMI: 34.4 Code: 26643-6 Heart Rate 1: 70 bpm Height: 5'3" SpO2: 97% Weight: 194 lbs 07/08/2018 Blood Pressure 1: 132/76 Code: 8480-6 BMI: 34.7 Code: 84457-5 Heart Rate 1: 72 bpm Height: 5'3" SpO2: 98% Weight: 196 lbs 02/11/2018 Blood Pressure 1: 130/70 Code: 8480-6 BMI: 35.1 Code: 07695-2 Heart Rate 1: 64 bpm Height: 5'3" SpO2: 95% Weight: 198 lbs 10/23/2017 Blood Pressure 1: 124/66 Code: 8480-6 BMI: 34.7 Code: 64045-2 Heart Rate 1: 67 bpm Height: 5'3" SpO2: 95% Weight: 196 lbs 08/13/2017 Blood Pressure 1: 128/82 Code: 8480-6 BMI: 34.7 Code: 81610-5 Heart Rate 1: 74 bpm Height: 5'3" SpO2: 95% Weight: 196 lbs 07/16/2017 Blood Pressure 1: 126/80 Code: 8480-6 BMI: 34.7 Code: 69428-9 Heart Rate 1: 62 bpm Height: 5'3" SpO2: 96% Weight: 196 lbs 06/29/2017 Blood Pressure 1: 122/70 Code: 8480-6 BMI: 35.1 Code: 55171-3 Heart Rate 1: 74 bpm Height: 5'3" SpO2: 94% Weight: 198 lbs 05/01/2017 Blood Pressure 1: 120/68 Code: 8480-6 BMI: 35.1 Code: 16561-3 Heart Rate 1: 76 bpm Height: 5'3" SpO2: 98% Weight: 198 lbs 04/24/2017 Blood Pressure 1: 142/80 Code: 8480-6 BMI: 35.1 Code: 44986-9 Heart Rate 1: 75 bpm Height: 5'3" SpO2: 98% Weight: 198 lbs 03/11/2017 Blood Pressure 1: 128/74 Code: 8480-6 BMI: 34.9 Code: 00266-0 Heart Rate 1: 68 bpm Height: 5'3" SpO2: 96% Weight: 197 lbs 02/19/2017 Blood Pressure 1: 108/62 Code: 8480-6 BMI: 34.9 Code: 32068-5 Heart Rate 1: 74 bpm Height: 5'3" SpO2: 97% Weight: 197 lbs 10/16/2016 Blood Pressure 1: 130/72 Code: 8480-6 BMI: 34.5 Code: 50604-6 Heart Rate 1: 65 bpm Height: 5'3" SpO2: 978% Weight: 194 lbs 8 oz 06/19/2016 Blood Pressure 1: 134/80 Code: 8480-6 BMI: 32.9 Code: 58520-7 Heart Rate 1: 69 bpm Height: 5'3" SpO2: 98% Weight: 186 lbs 03/13/2016 Blood Pressure 1: 118/74 Code: 8480-6 BMI: 32.4 Code: 09637-1 Heart Rate 1: 71 bpm Height: 5'3" SpO2: 96% Weight: 183 lbs 02/22/2016 Blood Pressure 1: 116/64 Code: 8480-6 BMI: 31.5 Code: 62832-9 Heart Rate 1: 71 bpm Height: 5'3" SpO2: 99% Weight: 178 lbs 12/18/2015 Blood Pressure 1: 94/60 Code: 8480-6 BMI: 31.1 Code: 18428-7 Heart Rate 1: 72 bpm Height: 5'3" SpO2: 99% Weight: 175 lbs 8 oz 11/13/2015 Blood Pressure 1: 104/64 Code: 8480-6 BMI: 32.4 Code: 74642-0 Heart Rate 1: 66 bpm Height: 5'3" SpO2: 97% Weight: 183 lbs 10/10/2015 Blood Pressure 1: 112/67 Code: 8480-6 BMI: 32.6 Code: 62885-0 Heart Rate 1: 78 bpm Height: 5'3" SpO2: 97% Weight: 184 lbs 07/23/2015 Blood Pressure 1: 108/64 Code: 8480-6 Blood Pressure 1: 10464 Code: 8480-6 Heart Rate 1: 70 bpm SpO2: 97% 07/10/2015 Blood Pressure 1: 118/64 Code: 8480-6 BMI: 32.6 Code: 67157-9 Heart Rate 1: 61 bpm Height: 5'3" SpO2: 98% Weight: 184 lbs 06/05/2015 Blood Pressure 1: 164/70 Code: 8480-6 BMI: 32.4 Code: 06983-3 Heart Rate 1: 68 bpm Height: 5'3" SpO2: 97% Weight: 183 lbs 05/01/2015 Blood Pressure 1: 150/78 Code: 8480-6 BMI: 32.4 Code: 32817-5 Heart Rate 1: 87 bpm Height: 5'3" SpO2: 95% Weight: 183 lbs 04/09/2015 Blood Pressure 1: 158/68 Code: 8480-6 BMI: 32.9 Code: 46295-7 Heart Rate 1: 78 bpm Height: 5'3" SpO2: 97% Weight: 186 lbs 03/26/2015 Blood Pressure 1: 140/76 Code: 8480-6 BMI: 33.7 Code: 34408-2 Heart Rate 1: 64 bpm Height: 5'3" SpO2: 98% Weight: 190 lbs 11/17/2014 Blood Pressure 1: 146/80 Code: 8480-6 BMI: 33.5 Code: 30553-9 Heart Rate 1: 60 bpm Height: 5'3" SpO2: 97% Weight: 189 lbs 10/31/2014 Blood Pressure 1: 130/72 Code: 8480-6 BMI: 33.7 Code: 08382-1 Heart Rate 1: 59 bpm Height: 5'3" SpO2: 96% Weight: 190 lbs 09/28/2014 Blood Pressure 1: 130/86 Code: 8480-6 Blood Pressure 1: 130/72 Code: 8480-6 BMI: 33.7 Code: 84338-9 Heart Rate 1: 58 bpm Height: 5'3" SpO2: 97% Weight: 190 lbs 08/31/2014 Blood Pressure 1: 122/84 Code: 8480-6 BMI: 34.0 Code: 99021-9 Height: 5'3" Weight: 192 lbs 05/29/2014 Blood Pressure 1: 120/68 Code: 8480-6 BMI: 33.8 Code: 24115-3 Heart Rate 1: 87 bpm Height: 5'3" SpO2: 97% Weight: 191 lbs 11/29/2013 Blood Pressure 1: 138/76 Code: 8480-6 BMI: 33.8 Code: 20549-4 Heart Rate 1: 68 bpm Height: 5'3" Weight: 191 lbs 10/04/2013 Blood Pressure 1: 140/88 Code: 8480-6 BMI: 33.1 Code: 80521-3 Heart Rate 1: 72 bpm Height: 5'3" Weight: 187 lbs 05/31/2013 Blood Pressure 1: 132/84 Code: 8480-6 Heart Rate 1: 60 bpm Weight: 191 lbs 11/30/2012 Blood Pressure 1: 128/72 Code: 8480-6 BMI: 33.5 Code: 27852-3 Heart Rate 1: 72 bpm Height: 5'3" Weight: 189 lbs 05/31/2012 Blood Pressure 1: 126/66 Code: 8480-6 BMI: 35.1 Code: 46364-9 Heart Rate 1: 72 bpm Height: 5'3" Weight: 198 lbs 11/25/2011 Blood Pressure 1: 156/80 Code: 8480-6 BMI: 34.2 Code: 89916-4 Heart Rate 1: 64 bpm Height: 5'3" Weight: 196 lbs 08/21/2011 Blood Pressure 1: 118/78 Code: 8480-6 Heart Rate 1: 68 bpm Respiratory Rate: 16 bpm Weight: 184 lbs 04/14/2011 Blood Pressure 1: 128/68 Code: 8480-6 BMI: 34.2 Code: 25201-4 Heart Rate 1: 56 bpm Height: 5'3" Respiratory Rate: 20 bpm Weight: 193 lbs 10/14/2010 Blood Pressure 1: 124/72 Code: 8480-6 BMI: 30.9 Code: 27622-6 Heart Rate 1: 60 bpm Height: 5'4" [...] drip 05/01/2017 None cough Location in the roat 04/24/2017 None cough Quality constant 04/24/2017 None cough Quality hacking 04/24/2017 None cough Onset and Resolution sudden in onset 04/24/2017 None cough Onset of Symptom 3 days ago 04/24/2017 None cough Frequency of Episodes daily 04/24/2017 None rash Location-Major on t he upper body 03/11/2017 None rash Location-Head/Neck on the left synagogue 03/11/2017 None rash Location-Head/Neck on the right [...] dizziness 11/29/2013 1 episode reported last w elim ira hypertension Pertinent Findings Denies dyspnea 11/29/2013 None [...] Encounters Encounter Performer Loca tion Codes Date 12974 EST. PATIENT, LEVEL III Diagnosis: Sebaceous cyst[ICD10: L72.3] Diagnosis: Encounter for immunization[ICD10: Z23] Kat Yeung MD, [facility] CPT-4: 36407 11/01/2018 ([id number]) 81462 EST. P ATIENT, LEVEL III Diagnosis: Essential (primary) hypertension[ICD10: I10] Evelyn Yeung MD, C CPT-4: 90474 09/06/2018 88280 EST. PATIENT, LEVEL III Diagnosis: Acute laryngopharyngitis[ICD10: J06.0] Diagnosis: Other allergic rhinitis[ICD10: J30.89] Fay Yeung MD, [facility] CPT-4: 04953 07/08/2018 ([id number]) 68564 EST. P ATIENT, LEVEL IV Diagnosis: Essential (primary) hypertension[ICD10: I10] Diagnosis: Mixed hyperlipidemia[ICD10: E78.2] Diagnosis: Obstructive sleep apnea (adult) (pediatric)[ICD10: G47.33] Evelyn Yeung MD, C CPT-4: 13002 02/11/2018 48982 EST. PATIENT, LEVEL III Diagnosis: Plantar wart[ICD10: B07.0] Diagnosis: Contusion of right upper arm, initial encounter[ICD10: S40.021A] Diagnosis: Corns and callosities[ICD10: L84] Diagnosis: VACCIN FOR INFLUENZA[ICD10: Z23] Fay Yeung MD, [facility] CPT-4: 16993 10/23/2017 ([id number]) 31355 EST. P ATIENT, LEVEL IV Diagnosis: Essential (primary) hypertension[ICD10: I10] Diagnosis: Corns and callosities[ICD10: L84] Diagnosis: Mixed hyperlipidemia[ICD10: E78.2] Evelyn Yeung MD, [facility] CPT- 4: 45592 08/13/2017 ([id number]) 50882 EST. P ATIENT, LEVEL III Diagnosis: Essential (primary) hypertension[ICD10: I10] Diagnosis: Corns and callosities[ICD10: L84] Kat Yeung MD, [facility] CPT- 4: 52572 07/16/2017 ([id number]) 08390 EST. P ATIENT, LEVEL III Diagnosis: Pain in right toe(s)[ICD10: M79.674] Diagnosis: Corns and callosities[ICD10: L84] Kat Yeung MD, [facility] CPT- 4: 84238 06/29/2017 ([id number]) Miscellaneou s no charge Diagnosis: Cough[ICD10: R05] Diagnosis: Other allergic rhinitis[ICD10: J30.89] Diagnosis: Acute bronchitis, unspecified[ICD10: J20.9] Kat Yeung MD, [facility] CPT-4: 76274 05/01/2017 72349 EST. PATIENT, LEVEL IV Diagnosis: Cough[ICD10: R05] Diagnosis: Other acute sinusitis[ICD10: J01.80] Diagnosis: Other allergic rhinitis[ICD10: J30.89] Fay Yeung MD, [facility] CPT-4: 38402 04/24/2017 17391 EST. PATIENT, LEVEL III Diagnosis: Rash and other nonspecific skin eruption[ICD10: R21] Fay Yeung MD, [facility] CPT-4: 69370 03/11/2017 ([id number]) 99521 EST. P ATIENT, LEVEL IV Diagnosis: Essential (primary) hypertension[ICD10: I10] Diagnosis: Mixed hyperlipidemia[ICD10: E78.2] Evelyn Yeung MD, [facility] CPT- 4: 80334 02/19/2017 ([id number]) 18197 EST. P ATIENT, LEVEL IV Diagnosis: Encounter for screening mammogram for malignant neoplasm of breast[ICD10: Z12.31] Diagnosis: Essential (primary) hypertension[ICD10: I10] Diagnosis: Mixed hyperlipidemia[ICD10: E78.2] [facility] CPT- 4: 72486 10/16/2016 ([id number]) 64210 EST. P ATIENT, LEVEL IV Diagnosis: Essential (primary) hypertension[ICD10: I10] Diagnosis: Primary central sleep apnea[ICD10: G47.31] Diagnosis: Low back pain[ICD10: M54.5] Evelyn Yeung MD, [facility] CPT-4: 17765 06/19/2016 ([id number]) 45838 EST. P ATIENT, LEVEL III Diagnosis: Pain in left shoulder[ICD10: M25.512] Diagnosis: Pain in left upper arm[ICD10: M79.622] Kat Yeung MD, [facility] CPT-4: 58686 03/13/2016 ([id number]) 31082 EST. P ATIENT, LEVEL III Diagnosis: Essential (primary) hypertension[ICD10: I10] Diagnosis: Pain in left shoulder[ICD10: M25.512] Kat Yeung MD, [facility] CPT-4: 79721 02/22/2016 ([id number]) 45984 EST. P ATIENT, LEVEL III Diagnosis: Orthostatic hypotension[ICD10: I95.1] [facility] CPT-4: 74209 12/18/2015 ([id number]) 45775 EST. P ATIENT, LEVEL III Diagnosis: Essential (primary) hypertension[ICD10: I10] Diagnosis: Dysuria[ICD10: R30.0] Diagnosis: VACCIN FOR INFLUENZA[ICD10: Z23] [facility] CPT-4: 05011 11/13/2015 ([id number]) Miscellaneou s no charge Diagnosis: Essential (primary) hypertension[ICD10: I10] Kat Yeung MD, [facility] CPT-4: 94141 07/23/2015 ([id number]) 86575 EST. P ATIENT, LEVEL III Diagnosis: Essential (primary) hypertension[ICD10: I10] Evelyn Yeung MD[facility] CPT-4: 45448 07/10/2015 ([id number]) 87407 EST. P ATIENT, LEVEL IV Diagnosis: Essential (primary) hypertension[ICD10: I10] Diagnosis: Primary central sleep apnea[ICD10: G47.31] Diagnosis: Anemia, unspecified[ICD10: D64.9] Evelyn Yeung MD, [facility] CPT-4: 48441 06/05/2015 ([id number]) 83429 EST. P ATIENT, LEVEL III Diagnosis: Essential (primary) hypertension[ICD10: I10] Evelyn Yeung MD, [facility] CPT-4: 98842 05/01/2015 31205 EST. PATIENT, LEVEL III Diagnosis: Pain in right knee[ICD10: M25.561] Diagnosis: Essential (primary) hypertension[ICD10: I10] Diagnosis: Encounter for follow-up examination after completed treatment for conditions other than malignant neoplasm[ICD10: Z09] Fay Yeung MD, [facility] CPT-4: 50470 04/09/2015 ([id number]) 96545 EST. P ATIENT, LEVEL IV Diagnosis: Essential (primary) hypertension[ICD10: I10] Diagnosis: Pain in right knee[ICD10: M25.561] Evelyn Yenug MD, [facility] CPT- 4: 31133 03/26/2015 ([id number]) 67950 EST. P ATIENT, LEVEL III Diagnosis: Left upper quadrant pain[ICD10: R10.12] Diagnosis: Lower abdominal pain, unspecified[ICD10: R10.30] Diagnosis: Recurrent oral aphthae[ICD10: K12.0] Evelyn Yeung MD, [facility] CPT-4: 07908 11/17/2014 ([id number]) 72489 EST. P ATIENT, LEVEL III Diagnosis: Left groin pain[ICD9: 789.09] Evelyn Yeung MD, [facility] CPT-4: 31673 10/31/2014 ([id number]) 05918 EST. P ATIENT, LEVEL IV Diagnosis: ESSENTIAL HYPERTENSION[ICD9: 401.9] Diagnosis: HYPERLIPIDEMIA[ICD9: 272.4] Evelyn Yeung MD, [facility] CPT-4: 23041 09/28/2014 ([id number]) 65476 EST. P ATIENT, LEVEL III Diagnosis: CELLULITIS OF FACE[ICD9: 682.0] Tatiana Yeung MD, [facility] CPT-4: 59309 08/31/2014 ([id number]) 77909 EST. P ATIENT, LEVEL IV Diagnosis: ESSENTIAL HYPERTENSION[ICD9: 401.9] Diagnosis: Hyperlipidemia[ICD9: 272.4] Diagnosis: Reyes's cyst of knee[ICD9: 727.51] Evelyn Yeung MD, [facility] CPT- 4: 94909 05/29/2014 ([id number]) 01682 EST. P ATIENT, LEVEL III Diagnosis: ESSENTIAL HYPERTENSION[ICD9: 401.9] Diagnosis: HYPERLIPIDEMIA[ICD9: 272.4] Evelyn Yeung MD, [facility] CPT-4: 32399 11/29/2013 ([id number]) 00769 EST. P ATIENT, LEVEL III Diagnosis: CELLULITIS OF FACE[ICD9: 682.0] Evelyn Yeung MD, [facility] CPT-4: 88222 10/04/2013 ([id number]) 80327 EST. P ATIENT, LEVEL IV Diagnosis: ESSENTIAL HYPERTENSION[SNOMED: 35656123] Diagnosis: HYPERLIPIDEMIA[ICD9: 272.4] Evelyn Yeung MD, [facility] CPT-4: 70651 05/31/2013 ([id number]) 39732 EST. P ATIENT, LEVEL III Diagnosis: ESSENTIAL HYPERTENSION[SNOMED: 18970515] Diagnosis: ABN FINDINGS NEC[ICD9: 796.9] [facility] CPT-4: 24869 11/30/2012 ([id number]) 76144 EST. P ATIENT, LEVEL IV Diagnosis: ESSENTIAL HYPERTENSION[SNOMED: 54824714] Diagnosis: HYPERLIPIDEMIA[ICD9: 272.4] Diagnosis: Abnormal Pap smear[ICD9: 796.9] Evelyn Yeung MD, [facility] CPT-4: 99789 05/31/2012 ([id number]) 21526 EST. P ATIENT, LEVEL III Diagnosis: Abnormal Pap smear[ICD9: 796.9] Diagnosis: ESSENTIAL HYPERTENSION[SNOMED: 32258072] Eveyln Yeung MD, C CPT-4: 73345 11/25/2011 ([id number]) 22328 EST. 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 P ATIENT, LEVEL IV Diagnosis: ESSENTIAL HYPERTENSION[SNOMED: 42123878] Diagnosis: Hyperlipidemia[ICD9: 272.4] Diagnosis: Annual physical exam[ICD9: V70.0] Evelyn Yeung MD, [facility] CPT-4: 21384 04/14/2011 78023 EST. PATIENT, LEVEL III Diagnosis: ESSENTIAL HYPERTENSION[SNOMED: 32924642] Diagnosis: Dyspareunia, female[ICD9: 625.0] Evelyn Yeung MD, [facility] CPT-4: 14471 10/14/2010 Plan of Care Planned Activity Notes C odes Status Date Visit Plan: Sebaceous cyst -refer t cory Balderas for removal - call if becomes infected -patient verbalized understanding of plan. 11/01/2018 Patient Education: Patient Medication Summary Completed 11/01/2018 Visit Plan: Hypertension - well con trolled - continue with current medications, continue with no added salt diet. Pt has been encouraged to exercise daily. The pt has been advised to call the office if there are any acute concerns about change in blood pressure readings at home. 09/06/2018 Appointment: Evelyn Yeung WPtel: [address] [place], [place] [phone] (15 min) Moderate 09/06/2018 Patient Education: Patient [...] allergy spray. 07/08/2018 Appointment: Fay Marie WPtel: [phone] [facility] (30 min) Complex 07/08/2018 Patient Education: [...] the cpap. 02/11/2018 [phone] ([facility] Moderate 02/11/2018 Patient Education: Patient [...] no improvement 10/23/2017 Appointment: Fay Marie WPtel: [phone] [facility] (15 min) Moderate 10/23/2017 [...] to assure normal liver response to medications. [place] on 4th toe right foot lateral surface - removed with scalpel. 08/13/2017 Appointment: Evelyn Yeung WPtel: [facility] [place] (15 min) Moderate 08/13/2017 Patient Education: Patient Medication Summary Completed 08/13/2017 Visit Plan: [facility]-geickjoyci-qt goldberg es Callus right toe -healed-no further treatment indicated 07/16/2017 Appointment: Kat Mitchell WPtel: [phone] [phone] [place] (15 min) Moderate 07/16/2017 Patient Education: Patient Medication Summary Completed 07/16/2017 Appointment: Kat Mitchell WPtel: [phone] [phone] (15 min) Moderate 07/14/2017 Visit Plan: Callus-right 4th toe-de brided today in the office-instructed patient on wound care and to call if symptoms do not resolve or if any worse-patient verbalized understanding of plan. 06/29/2017 Appointment: Kat Mitchell WPtel: [phone] [phone] (15 min) Moderate 06/29/2017 Patient Education: Patient Medication Summary Completed 06/29/2017 Visit Plan: Bronchitis-cough Discus sed natural and expected course of this diagnosis and need to alert me if symptoms do not follow expected course, or if any worse. RX sent to patient's pharmacy. 05/01/2017 Appointment: Kat Mitchell WPtel: [phone] [phone] (10 min) Simple 05/01/2017 Patient Education: Patient [...] spray. 04/24/2017 Appointment: Fay Marie WPtel: [phone] [facility] [place] (15 min) Moderate 04/24/2017 Patient [...] warmth, discharge. 03/11/2017 [facility]ment[phone] (30 min) Complex 03/11/2017 Patient Education: Patient [...] medications. 02/19/2017 App[facility]ment: [phone] (15 min) Moderate 02/19/2017 Patient Education: [...] to medications. 10/16/2016 Appointment: Evelyn Yeung WPtel: [facility] (15 min) Moderate 10/16/2016 Patient Education: Patient [...] monitor symptoms. 06/19/2016 Appointment: Evelyn Yeung WPtel: [facility] (15 min) Moderate 06/19/2016 Patient Education: Patient Medication Summary Completed 06/19/2016 Patient Education: Obesity Completed 06/19/2016 Visit Plan: Left shoulder pain-adriana ent has done rest, ice, and anti inflammatories-shoulder pain persists and causing weakness in left arm- will xray shoulder/humerus and proceed with MRI if indicated-patient verbalized understanding of plan. 03/13/2016 Appointment: Kat Mitchell WPtel: [phone] [place] (15 min) Moderate 03/13/2016 Appointment: Evelyn Yeung WPtel: [address] [place], [place] [phone] [place] (15 min) Moderate 03/13/2016 Patient Education: [...] at home. 02/22/2016 Appointment: Kat Mitchell WPtel: [phone] [place] (15 min) Moderate 02/22/2016 Patient Education: Patient Medication Summary Completed 02/22/2016 Patient Education: Obesity Completed 02/22/2016 Appointment: Kat Mitchell WPtel: [phone] [phone] (30 min) Complex 02/06/2016 Visit Plan: HYPOTENSION - RECOMMEND ED PT TO DECREASE THE LISIONPRIL TO 20MG ONE TIME DAILY. 12/18/2015 Appointment: Evelyn Yeung WPtel: [phone] [phone] (15 min) Moderate 12/18/2015 Patient Education: Patient [...] at home. 11/13/2015 Appointment: [phone] (15 min) Moderate 11/13/2015 Patient Education: Patient [...] care surrogate. 10/10/2015 Appointment: [facility]el[phone] (30 min) Complex 10/10/2015 Patient Education: Patient [...] at home. 07/10/2015 Appointment: Evelyn Yeung WPtel: [phone] [phone] (15 min) Moderate 07/10/2015 Patient Education: Patient [...] with cpap 06/05/2015 Appointment: [phone] (15 min) Moderate 06/05/2015 Patient Education: Patient [...] Hypertension Completed 04/09/2015 Appointment: Evelyn Yeung WPtel: [facility] (15 min) Moderate 03/29/2015 Visit Plan: [...] Completed 11/17/2014 Visit Plan: Left groin pain-Dr Mahogany peterson in to evaluate patient-no palpable abnormality today [...] to medications. 09/28/2014 Appointment: Evelyn Yeung WPtel: [phone] [phone] Follow up 09/28/2014 Patient Education: Patient Medication Summary Completed 09/28/2014 Patient Education: Hypertension Completed 09/28/2014 Care Plan: COMPLETE CBC AUTOMATED LOINC : 40110-0 Ordered 09/28/2014 Visit Plan: Cellulitis - RX [...] at night when at rest. 05/29/2014 Appointment: Evleyn Yeung WPtel: [phone] [phone] Follow up 05/29/2014 Patient Education: Patient Medication [...] medications. 11/29/2013 Appointment: Evelyn Yeung WPtel: [phone] [phone] Follow up 11/29/2013 Patient Education: Patient Medication Summary Completed 11/29/2013 Patient Education: Hypertension Completed 11/29/2013 Care Plan: COMPLETE CBC AUTOMATED LOINC : 99659-8 Ordered 11/29/2013 Visit Plan: Cellulitis - continue w ith oral antibiotics as previously directed, return to clinic as previously directed, call for acute change in symptoms, worsening redness, warmth, discharge. 10/04/2013 Appointment: Evelyn Yeung WPtel: [phone] [phone] [facility] 10/04/2013 Patient Education: Patient Medication Summary [...] 6 months 05/31/2013 Appointment: Evelyn Yeung WPtel: [phone] [phone] Follow up 05/31/2013 Patient Education: Patient Medication [...] years. 11/30/2012 Appointment: [phone] [place] Pap Only 11/30/2012 Patient Education: [...] of 2011. 05/31/2012 Appointment: [facility]Ptel[phone] [place] Pap Only 05/31/2012 Patient Education: Patient [...] at home. 11/25/2011 Appointment: Evelyn Yeung WPtel: [address] [place], [place] [phone] [place] Pap Only 11/25/2011 Patient Education: Patient Medication Summary Completed 11/25/2011 Patient Education: High Blood Pressure: Essential Hypertension Completed 11/25/2011 Appointment: Evelyn Yeung WPtel: [facility] [place] Pap Only 09/01/2011 Appointment: Evelyn Yeung WPtel: [address] [place], [place] [phone] [place] Pap Only 08/26/2011 Visit Plan: Hypertension [...] hot flashes. 08/21/2011 Appointment: Evelyn Yeung WPtel: [address] [place], [place] [phone] [place] Pap Only 08/21/2011 Patient Education: Patient Medication Summary Completed 08/21/2011 Patient Education: High Blood Pressure: Essential Hypertension Completed 08/21/2011 Appointment: Evelyn Yeung WPtel: [facility] [place] Other 04/16/2011 Visit Plan: Hypertension - [...] or prn. 04/14/2011 Appointment: Evelyn Yeung WPtel: [phone] [phone] Pap Only 04/14/2011 Patient Education: Patient Medication Summary Completed 04/14/2011 Patient Education: High Blood Pressure: Essential Hypertension Completed 04/14/2011 Appointment: [phone] [place] Injection 12/19/2010 Patient Education: Patient Medication Summary Completed 12/19/2010 Visit Plan: Hypertension - kenney milianed - continue with current medications, continue with no added salt diet. Pt has been encouraged to exercise daily. The pt has been advised to call the office if there are any acute concerns about change in blood pressure readings at home. Pain with intercourse- advised TREVA mabry to decrease discomfort. 10/14/2010 Appointment: [facility]el[phone] [place] Other 10/14/2010 Patient Education: Patient [...] pt doing well with the cpap. . UVG-fqfbgtscad-hp changes Callus right toe -healed-no further treatment indicated ACYCLOVIR 800MG TID X 10 DAYS ABDOMINAL ULTRASOUND . Oral aphthae-start acyclovir Abdominal pain-LUQ and LLQ-schedule abdominal ultrasound Take probiotic while on antibiotic. If you develop ulcerations on your face, ANY burning, itching, pain, call office IMMEDIATELY and return immediately. . Cellulitis - RX to pt's pharmacy. Ret urn to clinic or call for acute change in symptoms, worsening redness, warmth, discharge. . Total Right knee - pt is [...] notify clinic with any questions or concerns. . Hypertension - wel l controlled - [...] liver response to medications. . Hypertension - unc ontrolled - the [...] Sleep Apnea - continue with cpap . Plantar wart - rig ht foot [...] to notify clinic if no improvement . Sinusitis - Pt has acute infection [...] spray in the nasal steroid allergy spray. xray . Left shoulder pain-patient has done rest, ice, and anti inflammatories-shoulder pain persists and causing weakness in left arm-will xray shoulder/humerus and proceed with MRI if indicated-patient verbalized understanding of plan. . Hypertension - [...] to assure normal liver response to medications. Dr. aBlderas- 11/11/18 2pm . Sebaceous cyst -refer to Dr Balderas for removal -call if becomes infected -patient verbalized understanding of plan. . Hypertension - [...] year, otherwise, RTC yearly or prn. . Abnormal pap- repe at pap completed, will call pt with results. Hypertension - well controlled at home pt to- continue with current medications, continue with no added salt diet. Pt has been encouraged to exercise daily. The pt has been advised to call the office if there are any acute concerns about change in blood pressure readings at home. . Hypertension - well controlled - continue [...] for health care surrogate. . Hypertension - wel l controlled - continue with current medications, continue with no added salt diet. Pt has been encouraged to exercise daily. The pt has been advised to call the office if there are any acute concerns about change in blood pressure readings at home. zyrtec or altaf continue benadryl cefdinir increase probiotic to BID call thursday with update . Bronchitis-cough Discussed natural and expected course of this diagnosis and need to alert me if symptoms do not follow expected course, or if any worse. RX sent to patient's pharmacy. ALEVE 2 TABS TWICE D AILY WITH [...] to document stability from November of 2011. Heat to left groin Muscle rub to area Call if pain worsens . Left groin pain-Dr Yeung in to julio castellanos patient-no palpable abnormality today in the office-recommend muscle rub to area and heat-call if pain does not resolve or if any worse. Patient verbalized understanding of plan. . Callus-right 4th t oe-debrided today in [...] THE LISIONPRIL TO 20MG ONE TIME DAILY. Allergic Reaction/Hi ves - discussed diagnosis with [...] in pain, worsening redness, warmth, discharge. . Hypertension - [...] need for repeat exam until 2 years. . Hypertension - wel l controlled - [...] to assure normal liver response to medications. [place] on 4th toe right foot lateral surface - removed with scalpel. . URI - Pt advised t o [...] assure normal liver response to medications. . Cellulitis - jorden nue with oral antibiotics as previously directed, return to clinic as previously directed, call for acute change in symptoms, worsening redness, warmth, discharge.
--- OUTSIDE RECORDS SUMMARY | 2019-07-08 08:08 | XMS REPORT | CCD ---
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 10/14/[address]: [id number] Never smoker 10/14/[address]: 713596097 Never drinks alcohol 10/14/2010 Has the patient [...] Codes Condition Status Onset Date Resolved Date Essential (primary) hypertension ICD-9: 401.1 ICD-10: I10 [...] ICD-9: 078.12 ICD-10: B07.0 Active 10/23/2017 Unknown VACCIN FOR INFLUENZA ICD-9: V04.81 ICD-10: Z23 Active 10/23/2017 Unknown Pain in right toe(s) [...] Condition Codes Effectiv e Dates Condition Status Essential (primary) hypertension ICD-9: 401.1 ICD-10: I10 [...] wart ICD-9: 078.12 ICD-10: B07.0 10/23/2017 Active VACCIN FOR INFLUENZA ICD-9: V04.81 ICD-10: Z23 10/23/2017 Active Pain in right toe(s) ICD-9: [...] 40 mg/mL wander pension for injection RxNorm: 5158604 1 Milliliter(s) Inj 07/08/2018 07/08/2018 In active Zithromax Z-Doroteo 250 mg tablet RxNorm: 863655 1 Tablet(s) PO UD 07/08/2018 09/05/2018 Inactive metoprolol succinate ER 50 mg tablet,extended release 24 hr RxNorm: 224827 Tablet(s) TAKE 1 TABLET TWICE DAILY 05/27/2018 06/25/2018 Inactive metoprolol succinate ER 50 mg tablet,extended release 24 hr RxNorm: 789550 Tablet(s) TAKE 1 TABLET TWICE DAILY 05/25/2018 05/26/2018 Inactive potassium chloride E R 10 mEq capsule,extended release RxNorm: 862495 1 Capsule(s) PO TIW TAKE 1 CAPSULE THREE TIMES WEEKLY 04/23/2018 04/17/2019 Active three times weekly- sent on 04/21/18- requested again 04/23/18 potassium chloride E R 10 mEq capsule,extended release RxNorm: 039059 1 Capsule(s) PO TIW TAKE 1 CAPSULE THREE TIMES WEEKLY 04/21/2018 04/22/2018 Inactive thre e times weekly chlorthalidone 25 mg tablet RxNorm: 970287 Tablet(s) TAKE 1 TABL ET EVERY MORNING 03/26/2018 03/20/2019 Ac tive simvastatin 20 mg ta blet RxNorm: 269123 Tablet(s) TAKE 1 TABL ET EVERY NIGHT 03/26/2018 03/20/2019 Ac tive lisinopril 20 mg tablet RxNorm: 811327 1 Tablet(s) PO daily 02/11/2018 05/06/2019 Active this is an update on her RX - she is onl y taking 20mg daily -please delete other rx's lisinopril 20 mg tablet RxNorm: 023058 1 Tablet(s) PO daily 11/20/2017 02/10/2018 Inactive lisinopril 40 mg tablet RxNorm: 928058 Tablet(s) TAKE 1 TABLET EVERY DAY 11/16/2017 11/19/2017 In active metoprolol succinate ER 50 mg tablet,extended release 24 hr RxNorm: 778739 Tablet(s) TAKE 1 TABLET TWICE DAILY 06/05/2017 05/24/2018 Inactive metoprolol succinate ER 50 mg tablet,extended release 24 hr RxNorm: 434253 Tablet(s) TAKE 1 TABLET TWICE DAILY 06/05/2017 06/04/2017 Inactive potassium chloride E R 10 mEq capsule,extended release RxNorm: 274073 1 Capsule(s) PO TIW TAKE 1 CAPSULE THREE TIMES WEEKLY 05/07/2017 04/20/2018 Inactive thre e times weekly potassium chloride E R 10 mEq capsule,extended release RxNorm: 618257 1 Capsule(s) PO daily TAKE 1 CAPSULE THREE TIMES WEEKLY 05/05/2017 05/06/2017 Inactive metoprolol succinate ER 50 mg tablet,extended release 24 hr RxNorm: 297679 Tablet(s) TAKE 1 TABLET TWICE DAILY 05/04/2017 06/04/2017 Inactive Phenergan with Codei ne Syrup RxNorm: 5-10 Milliliter(s) PO QID a s needed cough 05/01/2017 No Stop Date Active cefdinir 300 mg capsule RxNorm: 185382 1 Capsule(s) PO BID 05/01/2017 05/07/2017 Inactive Zithromax Z-Doroteo 250 mg tablet RxNorm: 186938 1 Tablet(s) PO UD 04/24/2017 06/22/2017 Inactive Phenergan with Codei ne Syrup RxNorm: 5-10 Milliliter(s) PO QID a s needed cough 04/24/2017 04/30/2017 In active prednisone 20 mg tablet RxNorm: 271716 2 Tablet(s) PO daily 04/24/2017 04/28/2017 Inactive chlorthalidone 25 mg tablet RxNorm: 950725 Tablet(s) TAKE 1 TABL ET EVERY MORNING 04/13/2017 03/25/2018 In active simvastatin 20 mg ta blet RxNorm: 446463 Tablet(s) TAKE 1 TABL ET EVERY NIGHT 04/08/2017 03/25/2018 In active Kenalog 40 mg/mL wander pension for injection RxNorm: 1651910 1 Milliliter(s) Inj 03/11/2017 03/11/2017 In active prednisone 20 mg tablet RxNorm: 698259 2 Tablet(s) PO daily 03/11/2017 03/15/2017 Inactive simvastatin 20 mg ta blet RxNorm: 524295 TAKE 1 TABLET EVERY DAY 01/02/2017 04/07/2017 Inactive lisinopril 40 mg tablet RxNorm: 360723 TAKE 1 TABLET EVERY DAY 11/24/2016 08/20/2017 Inactive metoprolol succinate ER 50 mg tablet,extended release 24 hr RxNorm: 845176 TAKE 1 TABLET TWICE DAILY 11/24/2016 05/03/2017 Inactive fluconazole 150 mg t ablet RxNorm: 901689 1 Tablet(s) PO daily prn yeast infection symptoms 10/16/2016 10/25/2016 Inactive potassium chloride E R 10 mEq capsule,extended release RxNorm: 459864 TAKE 1 CAPSULE THREE TIMES WEEKLY 08/12/2016 05/04/2017 Inactive chlorthalidone 25 mg tablet RxNorm: 602402 TAKE 1 TABLET EVERY M ORNING 06/30/2016 04/12/2017 In active simvastatin 20 mg ta blet RxNorm: 182827 TAKE 1 TABLET EVERY DAY 01/21/2016 01/01/2017 Inactive lisinopril 40 mg tablet RxNorm: 280731 1/2 Tablet(s) daily 12/18/2015 11/23/2016 Inactive metoprolol succinate ER 50 mg tablet,extended release 24 hr RxNorm: 227234 Tablet(s) TAKE 1 TABLET TWICE DAILY 12/13/2015 11/23/2016 Inactive metoprolol succinate ER 50 mg tablet,extended release 24 hr RxNorm: 761040 Tablet(s) TAKE 1 TABLET TWICE DAILY 12/13/2015 12/12/2015 Inactive metoprolol succinate ER 50 mg tablet,extended release 24 hr RxNorm: 731953 Tablet(s) TAKE 1 TABLET TWICE DAILY 11/13/2015 12/12/2015 Inactive Keflex 500 mg capsule RxNorm: 587694 1 Capsule(s) PO TID 11/13/2015 11/19/2015 Inactive chlorthalidone 25 mg tablet RxNorm: 567124 1 Tablet(s) PO QAM 08/08/2015 06/29/2016 Inactive potassium chloride E R 10 mEq capsule,extended release RxNorm: 325483 1 Capsule(s) PO TIW 08/08/2015 08/01/2016 Inactive potassium chloride E R 10 mEq capsule,extended release RxNorm: 775794 1 Capsule(s) PO TIW 06/20/2015 08/07/2015 Inactive lisinopril 40 mg tablet RxNorm: 666878 TAKE 1 TABLET EVERY DAY 2015 12/17/2015 Inactive potassium chloride E R 10 mEq capsule,extended release RxNorm: 574240 1 Capsule(s) PO TIW 2015 06/19/2015 Inactive chlorthalidone 25 mg tablet RxNorm: 877973 1 Tablet(s) PO QAM 06/05/2015 08/07/2015 Inactive potassium chloride E R 10 mEq capsule,extended release RxNorm: 962656 1 Capsule(s) PO TIW 06/05/2015 06/17/2015 Inactive lisinopril 40 mg tablet RxNorm: 029617 1/2 Tablet(s) PO BID 05/07/2015 06/17/2015 Inactive amoxicillin 500 mg t ablet RxNorm: 328909 4 Tablet(s) PO one ho ur prior to dental appts UD 05/07/2015 10/08/2015 Inactive amoxicillin 500 mg t ablet RxNorm: 297287 4 Tablet(s) PO one ho ur prior to dental appts UD 05/04/2015 05/06/2015 Inactive lisinopril 40 mg tablet RxNorm: 518276 1/2 Tablet(s) PO BID 05/04/2015 05/06/2015 Inactive amoxicillin 500 mg t ablet RxNorm: 889335 4 Tablet(s) PO one ho ur prior to dental appts UD 05/01/2015 05/03/2015 Inactive lisinopril 40 mg tablet RxNorm: 190183 1/2 Tablet(s) PO BID TAKE 1 TABLET DAILY 05/01/2015 05/03/2015 In active metoprolol succinate ER 50 mg tablet,extended release 24 hr RxNorm: 871546 TAKE 1 AND 1/2 TABLETS TWICE DAILY 04/16/2015 11/12/2015 Inactive simvastatin 20 mg ta blet RxNorm: 028196 TAKE 1 TABLET EVERY DAY 04/16/2015 01/10/2016 Inactive acyclovir 800 mg tablet RxNorm: 029843 1 Tablet(s) PO TID 11/17/2014 11/26/2014 Inactive acyclovir 400 mg tablet RxNorm: 253943 2 Tablet(s) PO QID 10/06/2014 10/05/2014 Inactive acyclovir 400 mg tablet RxNorm: 897506 2 Tablet(s) PO QID 10/06/2014 10/15/2014 Inactive cephalexin 500 mg ca psule RxNorm: 507323 1 Capsule(s) PO TID 08/31/2014 09/04/2014 Inactive Bactroban 2 % topica l ointment RxNorm: 989308 1 Application TOP BID 08/31/2014 10/08/2015 Inactive Bactroban 2 % topica l ointment RxNorm: 027859 1 Application TOP BID 08/31/2014 09/04/2014 Inactive simvastatin 20 mg ta blet RxNorm: 365534 Tablet(s) TAKE 1 TABL ET DAILY 03/31/2014 04/15/2015 In active lisinopril 40 mg tablet RxNorm: 112279 Tablet(s) TAKE 1 TABLET DAILY 03/31/2014 04/30/2015 In active metoprolol succinate ER 50 mg tablet,extended release 24 hr RxNorm: 199495 Tablet(s) TAKE ONE AND ONE-HALF TABLETS (75 MG) TWICE A DAY 03/09/2014 04/15/2015 Inactive Prio r authorization approved for this med until 03-09-2015 metoprolol succinate ER 50 mg tablet,extended release 24 hr RxNorm: 112069 Tablet(s) TAKE ONE AND ONE-HALF TABLETS (75 MG) TWICE A DAY 03/06/2014 03/08/2014 Inactive simvastatin 20 mg ta blet RxNorm: 714750 TAKE 1 TABLET DAILY 01/24/2014 03/30/2014 Inactive lisinopril 40 mg tablet RxNorm: 387480 TAKE 1 TABLET DAILY 01/24/2014 03/30/2014 Inactive simvastatin 20 mg ta blet RxNorm: 376814 TAKE 1 TABLET DAILY 10/24/2013 01/23/2014 Inactive cephalexin 500 mg ca psule RxNorm: 986340 1 Capsule(s) PO TID 10/04/2013 10/08/2013 Inactive metoprolol succinate ER 50 mg tablet,extended release 24 hr RxNorm: 483818 TAKE ONE AND ONE-HALF TABLETS (75 MG) TWICE A DAY 09/16/2013 03/05/2014 Inactive simvastatin 20 mg ta blet RxNorm: 586384 Tablet(s) PO TAKE 1 T ABLET DAILY 04/21/2013 10/23/2013 In active metoprolol succinate ER 50 mg tablet,extended release 24 hr RxNorm: 459617 Tablet(s) PO TAKE ONE AND ONE-HALF TABLETS (75 MG) TWICE A DAY 03/24/2013 09/15/2013 Inactive metoprolol succinate ER 50 mg tablet,extended release 24 hr RxNorm: 706144 Tablet(s) PO TAKE ONE AND ONE-HALF TABLETS (75 MG) TWICE A DAY 12/20/2012 03/23/2013 Inactive lisinopril 40 mg tablet RxNorm: 821765 Tablet(s) PO TAKE 1 TABLET DAILY 11/18/2012 01/23/2014 In active simvastatin 20 mg ta blet RxNorm: 483560 Tablet(s) PO TAKE 1 T ABLET DAILY 08/06/2012 04/20/2013 In active metoprolol succinate ER 50 mg tablet,extended release 24 hr RxNorm: 906807 Tablet(s) PO TAKE ONE AND ONE-HALF TABLETS (75 MG) TWICE A DAY 06/15/2012 12/19/2012 Inactive metoprolol succinate ER 50 mg tablet,extended release 24 hr RxNorm: 584300 Tablet(s) PO TAKE ONE AND ONE-HALF TABLETS (75 MG) TWICE A DAY 03/01/2012 06/14/2012 Inactive Diflucan 150 mg tablet RxNorm: 071938 1 Tablet(s) PO daily 12/03/2011 12/02/2011 Inactive Diflucan 150 mg tablet RxNorm: 330178 1 Tablet(s) PO daily 12/03/2011 12/07/2011 Inactive Diflucan 150 mg tablet RxNorm: 388791 1 Tablet(s) PO daily 12/03/2011 12/02/2011 Inactive Influenza Virus Vacc ine 0.5 mL RxNorm: IM 11/25/2011 11/25/2011 Inactive metoprolol succinate ER 50 mg tablet,extended release 24 hr RxNorm: 192485 Tablet(s) PO 09/16/2011 02/29/2012 Inactive TAKE ONE AND ONE-HALF TABLETS (75 MG) TW ICE A DAY lisinopril 40 mg tablet RxNorm: 938914 Tablet(s) PO 08/25/2011 11/17/2012 Inactive TAKE 1 TABLET DAILY simvastatin 20 mg ta blet RxNorm: 266049 Tablet(s) PO 07/31/2011 08/05/2012 Inactive TAKE 1 TABLET DAILY Influenza Virus Vacc ine 0.5 mL RxNorm: 1/2 Milliliter(s) IM 12/19/2010 12/19/2010 Inactive metoprolol succinate ER 50 mg tablet,extended release 24 hr RxNorm: 249311 Tablet(s) PO 12/02/2010 09/15/2011 Inactive TAKE ONE AND ONE-HALF TABLETS (75 MG) TW ICE A DAY Calcium 600 + D(3) 6 00 mg (1,500 mg)-400 unit Tab RxNorm: 976738 1 Tablet(s) PO daily No Start Date Active Tylenol PM Extra Str ength 25 mg-500 mg Tab RxNorm: 7986939 1 Tablet(s) PO QHS No Start Date Active Probiotic & Acidophi lesa oral RxNorm: oral No Start D ate Active Fish Oil 1,200 mg-14 4 mg-216 mg Cap RxNorm: 1 Capsule(s) PO BID No Start Date Active 1400mg multivitamin Cap RxNorm: 1 Capsule(s) PO daily No Start Date Active Aspirin Childrens 81 mg Chewable Tab RxNorm: 857286 1 Tablet(s) PO daily No Start Date Active premarin 0.5% Vagina l cream RxNorm: [address] art Date 08/30/2014 Inactive simvastatin 20 mg Tab RxNorm: 002073 1 Tablet(s) PO daily No Start Date 07/30/2011 Inactive lisinopril 40 mg Tab RxNorm: 038017 1 Tablet(s) PO daily No Start Date 08/24/2011 Inactive Fish Oil 340 mg-1,00 0 mg Cap RxNorm: 1 Capsule(s) PO TID No Start Date 04/14/2011 Inactive [place] 20 mg Tab RxNorm: 494930 1 Tablet(s) PO daily No Start Date 04/14/2011 Inactive metoprolol succinate ER 50 mg 24 hr Tab RxNorm: 140484 1 &1/2 Tablet(s) PO d aily No Start Date 12/01/2010 Inactive Medication Administered Medication Codes Instruc tions Start Date Status Kenalog 40 mg/mL suspension for injection RxNorm: 5672625 1Milliliter 07/08/2018 N o longer Active Kenalog 40 mg/mL suspension for injection RxNorm: 0708539 1Milliliter 03/11/2017 N o longer Active Influenza Virus Vaccine 0.5 mL RxNorm: 11/25/2011 No longer Active Influenza Virus Vaccine 0.5 mL RxNorm: /2Milliliter 12/19/2010 No longer Active Immunizations Vaccine Codes Date Status Influenza CVX: 141 10/23 completed Influenza CVX: 141 12/09 completed Influenza CVX: 141 11/12 completed Influenza CVX: 141 11/24 completed Influenza CVX: 141 12/19 completed Assessments Condition Codes Effectiv e Dates Essential (primary) hypertension ICD -10: I10 ICD-9: [...] Visit Reason For Visit Effective Dates Notes hypertension 09/06/2018 sinus congestion 07/08/2018 hypertension 02/11/2018 [...] 30.2 pg 10/17/2016 Cbc With Differential Ord2 [place]% 6.3 % 10/17/2016 Cbc With Differential Ord2 [...] 1.37 K/ul 10/17/2016 Cbc With Differential Ord2 [place] ABS# 0.3 K/ul 10/17/2016 Cbc With Differential Ord2 Eos ABS# 0.2 K/ul 10/17/2016 Cbc With Differential Ord2 Baso ABS# 0.0 K/ul 10/17/2016 Comp Metabolic Ise114 NA 141 mEq/L 10/17/2016 Comp Metabolic Eut843 K 3.9 mEq/L 10/17/2016 Comp Metabolic Owd838 CL 105 mEq/L 10/17/2016 Comp Metabolic Bft798 CO2 26.0 mEq/L 10/17/2016 Comp Metabolic Rdc222 AN ION GAP 14 10/17/2016 Comp Metabolic Ozk058 GL UCOSE 100 mg/dL 10/17/2016 Comp Metabolic Sds283 Cr eat 1.0 mg/dL 10/17/2016 Comp Metabolic Yud681 eG FR 61 ml/min/1.73m2 10/17 Comp Metabolic Ydc950 BUN 17 mg/dL 10/17/2016 Comp Metabolic Wxu258 B/ C Ratio 17.7 Ratio 10/17/2016 Comp Metabolic Qxc783 CA LCIUM 9.8 mg/dL 10/17/2016 Comp Metabolic Pfb586 AL K PHOS 44 U/L 10/17/2016 Comp Metabolic Zhd412 T(SGOT) 15 U/L 10/17/2016 Comp Metabolic Tic953 AL T(SGPT) 16 U/L 10/17/2016 Comp Metabolic Pjz772 BI LI T 0.5 mg/dL 10/17/2016 Comp Metabolic Wgj134 AL BUMIN 4.3 g/dL 10/17/2016 Comp Metabolic Mlx533 TP RO 6.5 g/dL 10/17/2016 Comp Metabolic Pbr854 GL OB 2.3 g/dL 10/17/2016 Comp Metabolic Mlg274 A/ G Ratio 1.9 Ratio 10/17/2016 Comp Metabolic Tcj885 Os mo 283 mOsmo 10/17/2016 Lipid Ord30 CHOL 134 mg/dL 10/17/2016 Lipid Ord30 HDL 48.0 mg/dl 10/17/2016 Lipid Ord30 TRIG 123 mg/dL 10/17/2016 Lipid Ord30 LDL 61 mg/dL 10/17/2016 Lipid Ord30 C/HDL 2.8 Ratio 10/17/2016 Comp Metabolic Yip339 NA 140 mEq/L 02/28/2016 Comp Metabolic Crr850 K 3.9 mEq/L 02/28/2016 Comp Metabolic Xbz410 CL 102 mEq/L 02/28/2016 Comp Metabolic Cib682 CO2 31.0 mEq/L 02/28/2016 Comp Metabolic Kur379 AN ION GAP 11 02/28/2016 Comp Metabolic Bvu197 GL UCOSE 87 mg/dL 02/28/2016 Comp Metabolic Uzw693 Cr eat 1.2 mg/dL 02/28/2016 Comp Metabolic Tux975 eG FR 45 ml/min/1.73m2 02/27 Comp Metabolic Jaa198 BUN 23 mg/dL 02/28/2016 Comp Metabolic Uei892 B/ C Ratio 18.5 Ratio 02/28/2016 Comp Metabolic Vqf218 CA LCIUM 9.2 mg/dL 02/28/2016 Comp Metabolic Aaz539 AL K PHOS 53 U/L 02/28/2016 Comp Metabolic Hrf237 T(SGOT) 16 U/L 02/28/2016 Comp Metabolic Opd459 AL T(SGPT) 17 U/L 02/28/2016 Comp Metabolic Ymq391 BI LI T 0.5 mg/dL 02/28/2016 Comp Metabolic Eie738 AL BUMIN 4.2 g/dL 02/28/2016 Comp Metabolic Zgk384 TP RO 6.7 g/dL 02/28/2016 Comp Metabolic Xlu798 GL OB 2.5 g/dL 02/28/[address] A/ G Ratio 1.7 Ratio 02/28/2016 Comp Metabolic Mnq564 Os mo 282 mOsmo 02/28/2016 Cbc With [...] 30.5 pg 02/28/2016 Cbc With Differential Ord2 [place]% 5.6 % 02/28/2016 Cbc With Differential Ord2 [...] 1.21 K/ul 02/28/2016 Cbc With Differential Ord2 [place] ABS# 0.3 K/ul 02/28/2016 Cbc With Differential Ord2 Eos ABS# 0.2 K/ul 02/28/2016 Cbc With Differential Ord2 Baso ABS# 0.0 K/ul 02/28/2016 Lipid Ord30 CHOL 141 mg/dL 02/28/2016 Lipid Ord30 HDL 48.0 mg/dl 02/28/2016 Lipid Ord30 TRIG 144 mg/dL 02/28/2016 Lipid Ord30 LDL 64 mg/dL 02/28/2016 Lipid Ord30 C/HDL 2.9 Ratio 02/28/2016 Tsh Ord6 hTSH II 2.22 uIU/mL 02/28/2016 Culture Urine [id number] URI NE CULTURE SEE NOTES 11/15/2015 Urine [...] Ord30 C/HDL 2.7 Ratio 03/19/2015 Comp Metabolic Ptd678 NA 139 mEq/L 03/19/2015 Comp Metabolic Men107 K 4.0 mEq/L 03/19/2015 Comp Metabolic Rzw541 CL 105 mEq/L 03/19/2015 Comp Metabolic Upk623 CO2 29.0 mEq/L 03/19/2015 Comp Metabolic Lqw426 AN ION GAP 9 03/19/2015 Comp Metabolic Czx328 GL UCOSE 90 mg/dL 03/19/2015 Comp Metabolic Kny420 Cr eat 0.8 mg/dL 03/19/2015 Comp Metabolic Wwg919 eG FR 80 ml/min/1.73m2 03/19 Comp Metabolic Wyy676 BUN 14 mg/dL 03/19/2015 Comp Metabolic Afy235 B/ C Ratio 18.4 Ratio 03/19/2015 Comp Metabolic Pvx153 CA LCIUM 9.5 mg/dL 03/19/2015 Comp Metabolic Dog889 AL K PHOS 39 U/L 03/19/2015 Comp Metabolic Zhi763 T(SGOT) 17 U/L 03/19/2015 Comp Metabolic Ipa565 AL T(SGPT) 22 U/L 03/19/2015 Comp Metabolic Enq682 BI LI T 0.5 mg/dL 03/19/2015 Comp Metabolic Pkh661 AL BUMIN 4.2 g/dL 03/19/2015 Comp Metabolic Ews024 TP RO 6.3 g/dL 03/19/2015 Comp Metabolic Lar424 GL OB 2.1 g/dL 03/19/2015 Comp Metabolic Irz741 A/ G Ratio 2.0 Ratio 03/19/2015 Comp Metabolic Wop250 Os mo 278 mOsmo 03/19/2015 Tsh Ord6 [...] 29.9 pg 03/19/2015 Cbc With Differential Ord2 [place]% 5.1 % 03/19/2015 Cbc With Differential Ord2 [...] 1.52 K/ul 03/19/2015 Cbc With Differential Ord2 [place] ABS# 0.2 K/ul 03/19/2015 Cbc With Differential [...] Ord30 C/HDL 3.2 Ratio 09/29/2014 Comp Metabolic Xzc606 NA 139 mEq/L 09/29/2014 Comp Metabolic Bxu568 K 4.1 mEq/L 09/29/2014 Comp Metabolic Unb110 CL 104 mEq/L 09/29/2014 Comp Metabolic Rpg384 CO2 31.0 mEq/L 09/29/2014 Comp Metabolic Udc895 AN ION GAP 8 09/29/2014 Comp Metabolic Iyy575 GL UCOSE 96 mg/dL 09/29/2014 Comp Metabolic Vwp760 Cr eat 0.8 mg/dL 09/29/2014 Comp Metabolic Fog328 eG FR 71 ml/min/1.73m2 09/29 Comp Metabolic Tca634 BUN 13 mg/dL 09/29/2014 Comp Metabolic Arj786 B/ C Ratio 15.5 Ratio 09/29/2014 Comp Metabolic Kwh620 CA LCIUM 9.5 mg/dL 09/29/2014 Comp Metabolic Wvx215 AL K PHOS 42 U/L 09/29/2014 Comp Metabolic Hig356 T(SGOT) 20 U/L 09/29/2014 Comp Metabolic Ogq870 AL T(SGPT) 26 U/L 09/29/2014 Comp Metabolic Jgz085 BI LI T 0.5 mg/dL 09/29/2014 Comp Metabolic Gad521 AL BUMIN 4.4 g/dL 09/29/2014 Comp Metabolic Rda717 TP RO 6.5 g/dL 09/29/2014 Comp Metabolic Mzr323 GL OB 2.1 g/dL 09/29/2014 Comp Metabolic Bor968 A/ G Ratio 2.1 Ratio 09/29/2014 Comp Metabolic Qtj706 Os mo 278 mOsmo 09/29/2014 Tsh Ord6 [...] Result Effective Dates Constitutional No recent illness 09/06/2018 Constitutional No [...] Result Effective Dates Notes Full Exam - General 1994 Constitutional general [...] accomodation 11/13/2015 None Full Exam - General 1995 Ears/Nose/Throat oral cavity/pharynx/larynx Overall: oral mucosa clear 11/13/2015 None Full Exam - General 1994 Ears/Nose/Throat oral cavity/pharynx/larynx Overall: oropharyngeal mucosa clear 11/13/2015 None Full Exam - General 1995 Ears/Nose/Throat oral cavity/pharynx/larynx Overall: hypopharynx benign 11/13/2015 [...] accomodation 11/30/2012 None Full Exam - General 1994 [...] disease 11/30/2012 None Full Exam - General 1995 Genitourinary uterus Overall: surgically absent 11/30/2012 None Full Exam - General 1994 Genitourinary cervix Overall: surgically absent 11/30/2012 None Full Exam - General 1995 Genitourinary labia and vagina Overall: normal hair distribution 11/30/2012 None Full Exam - General 1995 Genitourinary labia and vagina Overall: no lesions [...] clear 05/31/2012 None Full Exam - General 1995 Ears/Nose/Throat [...] disease 05/31/2012 None Full Exam - General 1995 Genitourinary uterus Overall: surgically absent 05/31/2012 None Full Exam - General 1995 Genitourinary cervix Overall: surgically absent 05/31/2012 None Full Exam - General 1995 Genitourinary labia and vagina Overall: normal hair distribution 05/31/2012 None Full Exam - General 1995 Genitourinary labia and vagina Overall: no lesions 05/31/2012 None Full Exam - General 1995 Genitourinary adnexa/parametria Overall: surgically absent 05/31/2012 None Full Exam - General 1995 Genitourinary urethra Overall: no masses 05/31/2012 None Full Exam - General 1995 Musculoskeletal head and neck Overall: head atraumatic 05/31/2012 None Full Exam - General 1995 Musculoskeletal [...] affect 05/31/2012 None Full Exam - General 1995 Psychiatric mood and affect Mood: happy 05/31/2012 [...] sounds 11/25/2011 None Full Exam - General 1995 Genitourinary uterus Overall: surgically absent 11/25/2011 None Full Exam - General 1994 Genitourinary cervix Overall: surgically absent 11/25/2011 None Full Exam - General 1995 Genitourinary labia and vagina Overall: normal hair distribution 11/25/2011 None Full Exam - General 1995 Constitutional general appearance Overall: well developed 11/25/2011 None Full Exam - General 1995 Constitutional general appearance Overall: in no acute distress 11/25/2011 None Full Exam - General 1995 Constitutional general appearance Overall: well nourished 11/25/2011 None Full Exam - General 1995 Eyes pupils and irises Overall: pupils equal, round, reactive to light and accomodation 11/25/2011 None Full Exam - General 1995 [...] size 06/2011 None Full Exam - General 1995 Neck thyroid Overall: normal consistency 08/21/2011 None [...] hepatosplenomegaly 08/21/2011 None Full Exam - General 1995 Abdomen liver and spleen exam Overall: no stigmata of chronic liver disease 08/21/2011 None Full Exam - General 1995 Genitourinary uterus Overall: surgically absent 08/21/2011 None Full Exam - General 1995 Genitourinary cervix Overall: surgically absent 08/21/2011 None Full Exam - General 1995 Genitourinary labia and vagina Overall: normal hair distribution 08/21/2011 None Full Exam - General 1994 Genitourinary labia and vagina Overall: no lesions 08/21/2011 None Full Exam - General 1995 Genitourinary adnexa/parametria Overall: surgically absent 08/21/2011 None Full Exam - General 1995 Genitourinary urethra Overall: no masses 08/21/2011 None [...] discharge 04/14/2011 None Full Exam - General 1995 Chest/Breast breast/chest inspection Overall: normal chest shape 04/14/2011 None Full Exam - General 1995 Chest/Breast breast/chest inspection Overall: breasts to symmetric and without lesions 04/14/2011 None Full Exam - General 1995 Abdomen abdominal exam Overall: no tenderness 04/14/2011 None Full Exam - General 1995 Abdomen abdominal exam Overall: normal bowel sounds 04/14/2011 None Full Exam - General 1994 Constitutional general appearance Overall: well nourished 04/14/2011 None Full Exam - General 1995 Constitutional general appearance Overall: well developed 04/14/2011 None Full Exam - General 1995 Constitutional general appearance Overall: in no acute [...] masses 04/14/2011 None Full Exam - General 1995 Ears/Nose/Throat oral cavity/pharynx/larynx Overall: oral mucosa clear 04/14/2011 None Full Exam - General 1994 Neck thyroid Overall: nontender 04/14 None Full Exam - General 1994 Neck thyroid Overall: normal size None Full Exam - General 1994 Neck thyroid Overall: no mass lesions 04/14/2011 None Full Exam - General 1994 Neck thyroid Overall: normal consistency 04/14/2011 None Full Exam - General 1994 Genitourinary adnexa/parametria Overall: surgically absent 04/14/2011 None Full Exam - General 1994 Genitourinary cervix Overall: surgically absent 04/14/2011 None Full Exam - General 1994 Abdomen liver and spleen exam Overall: no hepatosplenomegaly 04/14/2011 None Full Exam - General 1994 Abdomen liver and spleen exam Overall: no stigmata of chronic liver disease 04/14/2011 None Full Exam - General 1994 [...] retractions 10/14/2010 None Procedures Procedure Codes Date TRIAMCINOLONE ACET I [place] NOS CPT-4: J3301 07/08/2018 THER/PROPH/DIAG INJ SC/IM CPT-4: 84340 07/08/2018 FLU VAC NO PRSV 4 VA L 3 YRS+ CPT-4: 67969 10/23/2017 ADMIN INFLUENZA VIRU S VAC CPT-4: G0008 10/23/2017 THER/PROPH/DIAG INJ SC/IM CPT-4: 23548 03/11/2017 TRIAMCINOLONE ACET I [place] NOS CPT-4: J3301 03/11/2017 FLU VAC NO PRSV 4 VA L 3 YRS+ CPT-4: 34337 12/09/2016 ADMIN INFLUENZA VIRU S VAC CPT-4: G0008 12/09/2016 URINALYSIS NONAUTO W /O SCOPE CPT-4: 31102 11/13/2015 IMMUNIZATION ADMIN CPT- 4: 60139 11/13/2015 FLU VACC 4 [place] 3 YRS PLUS IM SNOMED CT: [id number] CPT-4: 10097 11/13/2015 PPPS, SUBSEQ VISIT CPT- 4: G0439 10/10/2015 IMMUNIZATION ADMIN CPT- 4: 66524 11/25/2011 Influenza Virus Vacc ine, Split Virus, >3 Yrs, IM CPT-4: 68948 11/25/2011 ADMIN INFLUENZA VIRU S VAC CPT-4: G0008 12/19/2010 FLULAVAL VACC, 3 YRS & >, IM CPT-4: Q2036 12/19/2010 Vital Signs Date Vital 09/06/2018 Blood Pressure 1: 118/70 Code: 8480-6 BMI: 34.4 Code: 75550-5 Heart Rate 1: 70 bpm Height: 5'3" SpO2: 97% Weight: 194 lbs 07/08/2018 Blood Pressure 1: 132/76 Code: 8480-6 BMI: 34.7 Code: 40224-0 Heart Rate 1: 72 bpm Height: 5'3" SpO2: 98% Weight: 196 lbs 02/11/2018 Blood Pressure 1: 130/70 Code: 8480-6 BMI: 35.1 Code: 17294-7 Heart Rate 1: 64 bpm Height: 5'3" SpO2: 95% Weight: 198 lbs 10/23/2017 Blood Pressure 1: 124/66 Code: 8480-6 BMI: 34.7 Code: 42963-0 Heart Rate 1: 67 bpm Height: 5'3" SpO2: 95% Weight: 196 lbs 08/13/2017 Blood Pressure 1: 128/82 Code: 8480-6 BMI: 34.7 Code: 20813-1 Heart Rate 1: 74 bpm Height: 5'3" SpO2: 95% Weight: 196 lbs 07/16/2017 Blood Pressure 1: 126/80 Code: 8480-6 BMI: 34.7 Code: 95851-5 Heart Rate 1: 62 bpm Height: 5'3" SpO2: 96% Weight: 196 lbs 06/29/2017 Blood Pressure 1: 122/70 Code: 8480-6 BMI: 35.1 Code: 74744-6 Heart Rate 1: 74 bpm Height: 5'3" SpO2: 94% Weight: 198 lbs 05/01/2017 Blood Pressure 1: 120/68 Code: 8480-6 BMI: 35.1 Code: 77315-1 Heart Rate 1: 76 bpm Height: 5'3" SpO2: 98% Weight: 198 lbs 04/24/2017 Blood Pressure 1: 142/80 Code: 8480-6 BMI: 35.1 Code: 97329-8 Heart Rate 1: 75 bpm Height: 5'3" SpO2: 98% Weight: 198 lbs 03/11/2017 Blood Pressure 1: 128/74 Code: 8480-6 BMI: 34.9 Code: 19052-2 Heart Rate 1: 68 bpm Height: 5'3" SpO2: 96% Weight: 197 lbs 02/19/2017 Blood Pressure 1: 108/62 Code: 8480-6 BMI: 34.9 Code: 46521-8 Heart Rate 1: 74 bpm Height: 5'3" SpO2: 97% Weight: 197 lbs 10/16/2016 Blood Pressure 1: 130/72 Code: 8480-6 BMI: 34.5 Code: 06871-4 Heart Rate 1: 65 bpm Height: 5'3" SpO2: 978% Weight: 194 lbs 8 oz 06/19/2016 Blood Pressure 1: 134/80 Code: 8480-6 BMI: 32.9 Code: 51522-1 Heart Rate 1: 69 bpm Height: 5'3" SpO2: 98% Weight: 186 lbs 03/13/2016 Blood Pressure 1: 118/74 Code: 8480-6 BMI: 32.4 Code: 66311-9 Heart Rate 1: 71 bpm Height: 5'3" SpO2: 96% Weight: 183 lbs 02/22/2016 Blood Pressure 1: 116/64 Code: 8480-6 BMI: 31.5 Code: 32476-4 Heart Rate 1: 71 bpm Height: 5'3" SpO2: 99% Weight: 178 lbs 12/18/2015 Blood Pressure 1: 94/60 Code: 8480-6 BMI: 31.1 Code: 80961-2 Heart Rate 1: 72 bpm Height: 5'3" SpO2: 99% Weight: 175 lbs 8 oz 11/13/2015 Blood Pressure 1: 104/64 Code: 8480-6 BMI: 32.4 Code: 99409-2 Heart Rate 1: 66 bpm Height: 5'3" SpO2: 97% Weight: 183 lbs 10/10/2015 Blood Pressure 1: 112/67 Code: 8480-6 BMI: 32.6 Code: 48112-5 Heart Rate 1: 78 bpm Height: 5'3" SpO2: 97% Weight: 184 lbs 07/23/2015 Blood Pressure 1: 108/64 Code: 8480-6 Blood Pressure 1: 104/64 Code: 8480-6 Heart Rate 1: 70 bpm SpO2: 97% 07/10/2015 Blood Pressure 1: 118/64 Code: 8480-6 BMI: 32.6 Code: 79732-8 Heart Rate 1: 61 bpm Height: 5'3" SpO2: 98% Weight: 184 lbs 06/05/2015 Blood Pressure 1: 164/70 Code: 8480-6 BMI: 32.4 Code: 33241-2 Heart Rate 1: 68 bpm Height: 5'3" SpO2: 97% Weight: 183 lbs 05/01/2015 Blood Pressure 1: 150/78 Code: 8480-6 BMI: 32.4 Code: 17971-0 Heart Rate 1: 87 bpm Height: 5'3" SpO2: 95% Weight: 183 lbs 04/09/2015 Blood Pressure 1: 158/68 Code: 8480-6 BMI: 32.9 Code: 87597-4 Heart Rate 1: 78 bpm Height: 5'3" SpO2: 97% Weight: 186 lbs 03/26/2015 Blood Pressure 1: 140/76 Code: 8480-6 BMI: 33.7 Code: 80521-0 Heart Rate 1: 64 bpm Height: 5'3" SpO2: 98% Weight: 190 lbs 11/17/2014 Blood Pressure 1: 146/80 Code: 8480-6 BMI: 33.5 Code: 39250-0 Heart Rate 1: 60 bpm Height: 5'3" SpO2: 97% Weight: 189 lbs 10/31/2014 Blood Pressure 1: 130/72 Code: 8480-6 BMI: 33.7 Code: 75955-0 Heart Rate 1: 59 bpm Height: 5'3" SpO2: 96% Weight: 190 lbs 09/28/2014 Blood Pressure 1: 130/86 Code: 8480-6 Blood Pressure 1: 130/72 Code: 8480-6 BMI: 33.7 Code: 80500-2 Heart Rate 1: 58 bpm Height: 5'3" SpO2: 97% Weight: 190 lbs 08/31/2014 Blood Pressure 1: 122/84 Code: 8480-6 BMI: 34.0 Code: 92387-6 Height: 5'3" Weight: 192 lbs 05/29/2014 Blood Pressure 1: 120/68 Code: 8480-6 BMI: 33.8 Code: 10988-5 Heart Rate 1: 87 bpm Height: 5'3" SpO2: 97% Weight: 191 lbs 11/29/2013 Blood Pressure 1: 138/76 Code: 8480-6 BMI: 33.8 Code: 20894-2 Heart Rate 1: 68 bpm Height: 5'3" Weight: 191 lbs 10/04/2013 Blood Pressure 1: 140/88 Code: 8480-6 BMI: 33.1 Code: 92539-3 Heart Rate 1: 72 bpm Height: 5'3" Weight: 187 lbs 05/31/2013 Blood Pressure 1: 132/84 Code: 8480-6 Heart Rate 1: 60 bpm Weight: 191 lbs 11/30/2012 Blood Pressure 1: 128/72 Code: 8480-6 BMI: 33.5 Code: 08941-2 Heart Rate 1: 72 bpm Height: 5'3" Weight: 189 lbs 05/31/2012 Blood Pressure 1: 126/66 Code: 8480-6 BMI: 35.1 Code: 49383-9 Heart Rate 1: 72 bpm Height: 5'3" Weight: 198 lbs 11/25/2011 Blood Pressure 1: 156/80 Code: 8480-6 BMI: 34.2 Code: 73541-2 Heart Rate 1: 64 bpm Height: 5'3" Weight: 196 lbs 08/21/2011 Blood Pressure 1: 118/78 Code: 8480-6 Heart Rate 1: 68 bpm Respiratory Rate: 16 bpm Weight: 184 lbs 04/14/2011 Blood Pressure 1: 128/68 Code: 8480-6 BMI: 34.2 Code: 31392-1 Heart Rate 1: 56 bpm Height: 5'3" Respiratory Rate: 20 bpm Weight: 193 lbs 10/14/2010 Blood Pressure 1: 124/72 Code: 8480-6 BMI: 30.9 Code: 94962-5 Heart Rate 1: 60 bpm Height: 5'4" Respiratory Rate: 12 bpm Weight: 180 lbs Functional Status No Functional Status data History of Present Illness Symptom Name Status Resu lt Effective Date Notes Onset and Resolution o ngoing 09/06/2018 None [...] 03/11/2017 None rash Location-Head/Neck on the left judaism 03/11/2017 None rash Location-Head/Neck on the right [...] servings of vegetables / fruit per day: 10/10/2015 None Annual Medicare Wellness Exam [place] [...] medication 05/01/2015 None Hospital Follow Up _ Ot er: total right knee replacement 04/09/2015 None [...] dizziness 11/29/2013 1 episode reported last w [place] hypertension Pertinent Findings Denies dyspnea 11/29/2013 None [...] Encounters Encounter Performer Loca tion Codes Date ([id number]) 39492 EST. P ATIENT, LEVEL III Diagnosis: Essential (primary) hypertension[ICD10: I10] Evelyn Yeung MD, [facility] CPT-4: 83669 09/06/2018 43866 EST. PATIENT, LEVEL III Diagnosis: Acute laryngopharyngitis[ICD10: J06.0] Diagnosis: Other allergic rhinitis[ICD10: J30.89] Fay Yeung MD, [facility] CPT-4: 18724 07/08/2018 [id number]) 44804 EST. P ATIENT, LEVEL IV Diagnosis: Essential (primary) hypertension[ICD10: I10] Diagnosis: Mixed hyperlipidemia[ICD10: E78.2] Diagnosis: Obstructive sleep apnea (adult) (pediatric)[ICD10: G47.33] Evelyn Yeung MD, [facility] CPT-4: 26305 02/11/2018 51775 EST. PATIENT, LEVEL III Diagnosis: Plantar wart[ICD10: B07.0] Diagnosis: Contusion of right upper arm, initial encounter[ICD10: S40.021A] Diagnosis: Corns and callosities[ICD10: L84] Diagnosis: VACCIN FOR INFLUENZA[ICD10: Z23] Fay Yeung MD, [facility] CPT-4: 97323 10/23/2017 ([id number]) 22056 EST. P ATIENT, LEVEL IV Diagnosis: Essential (primary) hypertension[ICD10: I10] Diagnosis: Corns and callosities[ICD10: L84] Diagnosis: Mixed hyperlipidemia[ICD10: E78.2] Evelyn Yeung MD, [facility] CPT- 4: 10912 08/13/2017 ([id number]) 41036 EST. P ATIENT, LEVEL III Diagnosis: Essential (primary) hypertension[ICD10: I10] Diagnosis: Corns and callosities[ICD10: L84] Kat Yeung MD, [facility] CPT- 4: 61152 07/16/2017 ([id number]) 00066 EST. P ATIENT, LEVEL III Diagnosis: Pain in right toe(s)[ICD10: M79.674] Diagnosis: Corns and callosities[ICD10: L84] Kat Yeung MD, [facility] CPT- 4: 04362 06/29/2017 ([id number]) Miscellaneou s no charge Diagnosis: Cough[ICD10: R05] Diagnosis: Other allergic rhinitis[ICD10: J30.89] Diagnosis: Acute bronchitis, unspecified[ICD10: J20.9] Kat Yeung MD, [facility] CPT-4: 83676 05/01/2017 04864 EST. PATIENT, LEVEL IV Diagnosis: Cough[ICD10: R05] Diagnosis: Other acute sinusitis[ICD10: J01.80] Diagnosis: Other allergic rhinitis[ICD10: J30.89] Fay Yeung MD, [facility] CPT-4: 45332 04/24/2017 20160 EST. PATIENT, LEVEL III Diagnosis: Rash and other nonspecific skin eruption[ICD10: R21] Fay Yeung MD, [facility] CPT-4: 24890 03/11/2017 ([id number]) 26921 EST. P ATIENT, LEVEL IV Diagnosis: Essential (primary) hypertension[ICD10: I10] Diagnosis: Mixed hyperlipidemia[ICD10: E78.2] Evelyn Yeung MD, [facility] CPT- 4: 51863 02/19/2017 ([id number]) 40647 EST. P ATIENT, LEVEL IV Diagnosis: Encounter for screening mammogram for malignant neoplasm of breast[ICD10: Z12.31] Diagnosis: Essential (primary) hypertension[ICD10: I10] Diagnosis: Mixed hyperlipidemia[ICD10: E78.2] Evelyn Yeung MD, [facility] CPT- 4: 33946 10/16/2016 ([id number]) 19021 EST. P ATIENT, LEVEL IV Diagnosis: Essential (primary) hypertension[ICD10: I10] Diagnosis: Primary central sleep apnea[ICD10: G47.31] Diagnosis: Low back pain[ICD10: M54.5] Evelyn Yeung MD, [facility] CPT-4: 91642 06/19/2016 ([id number]) 87742 EST. P ATIENT, LEVEL III Diagnosis: Pain in left shoulder[ICD10: M25.512] Diagnosis: Pain in left upper arm[ICD10: M79.622] Kat Yeung MD, [facility] CPT-4: 45695 03/13/2016 ([id number]) 51884 EST. P ATIENT, LEVEL III Diagnosis: Essential (primary) hypertension[ICD10: I10] Diagnosis: Pain in left shoulder[ICD10: M25.512] Kat Yeung MD, [facility] CPT-4: 49775 02/22/2016 ([id number]) 28956 EST. P ATIENT, LEVEL III Diagnosis: Orthostatic hypotension[ICD10: I95.1] Evelyn Yeung MD, [facility] CPT-4: 80348 12/18/2015 ([id number]) 27315 EST. P ATIENT, LEVEL III Diagnosis: Essential (primary) hypertension[ICD10: I10] Diagnosis: Dysuria[ICD10: R30.0] Diagnosis: VACCIN FOR INFLUENZA[ICD10: Z23] Evelyn Yeung MD, [facility] CPT-4: 30673 11/13/2015 ([id number]) Miscellaneou s no charge Diagnosis: Essential (primary) hypertension[ICD10: I10] Kat Yeung MD, [facility] CPT-4: 55465 07/23/2015 ([id number]) 61890 EST. P ATIENT, LEVEL III Diagnosis: Essential (primary) hypertension[ICD10: I10] Evelyn Yeung MD, [facility] CPT-4: 58585 07/10/2015 ([id number]) 09781 EST. P ATIENT, LEVEL IV Diagnosis: Essential (primary) hypertension[ICD10: I10] Diagnosis: Primary central sleep apnea[ICD10: G47.31] Diagnosis: Anemia, unspecified[ICD10: D64.9] Evelyn Yeung MD, [facility] CPT-4: 41385 06/05/2015 ([id number]) 67912 EST. P ATIENT, LEVEL III Diagnosis: Essential (primary) hypertension[ICD10: I10] Evelyn Yeung MD, [facility] CPT-4: 07656 05/01/2015 90832 EST. PATIENT, LEVEL III Diagnosis: Pain in right knee[ICD10: M25.561] Diagnosis: Essential (primary) hypertension[ICD10: I10] Diagnosis: Encounter for follow-up examination after completed treatment for conditions other than malignant neoplasm[ICD10: Z09] Fay Yeung MD, [facility] CPT-4: 89678 04/09/2015 ([id number]) 89566 EST. P ATIENT, LEVEL IV Diagnosis: Essential (primary) hypertension[ICD10: I10] Diagnosis: Pain in right knee[ICD10: M25.561] Evelyn Yeung MD, [facility] CPT- 4: 78731 03/26/2015 ([id number]) 81066 EST. P ATIENT, LEVEL III Diagnosis: Left upper quadrant pain[ICD10: R10.12] Diagnosis: Lower abdominal pain, unspecified[ICD10: R10.30] Diagnosis: Recurrent oral aphthae[ICD10: K12.0] Evelyn Yeung MD, [facility] CPT-4: 71695 11/17/2014 ([id number]) 48377 EST. P ATIENT, LEVEL III Diagnosis: Left groin pain[ICD9: 789.09] Evelyn Yeung MD, [facility] CPT-4: 70382 10/31/2014 ([id number]) 00497 EST. P ATIENT, LEVEL IV Diagnosis: ESSENTIAL HYPERTENSION[ICD9: 401.9] Diagnosis: HYPERLIPIDEMIA[ICD9: 272.4] Evelyn Yeung MD, [facility] CPT-4: 33368 09/28/2014 ([id number]) 57782 EST. P ATIENT, LEVEL III Diagnosis: CELLULITIS OF FACE[ICD9: 682.0] Tatiana Yeung MD, [facility] CPT-4: 98878 08/31/2014 ([id number]) 40929 EST. P ATIENT, LEVEL IV Diagnosis: ESSENTIAL HYPERTENSION[ICD9: 401.9] Diagnosis: Hyperlipidemia[ICD9: 272.4] Diagnosis: Reyes's cyst of knee[ICD9: 727.51] Evelyn Yeung MD, [facility] CPT- 4: 81881 05/29/2014 ([id number]) 59497 EST. P ATIENT, LEVEL III Diagnosis: ESSENTIAL HYPERTENSION[ICD9: 401.9] Diagnosis: HYPERLIPIDEMIA[ICD9: 272.4] Evelyn Yeung MD, [facility] CPT-4: 24689 11/29/2013 ([id number]) 17190 EST. P ATIENT, LEVEL III Diagnosis: CELLULITIS OF FACE[ICD9: 682.0] Evelyn Yeung MD, [facility] CPT-4: 20673 10/04/2013 ([id number]) 86410 EST. P ATIENT, LEVEL IV Diagnosis: ESSENTIAL HYPERTENSION[SNOMED: 23258684] Diagnosis: HYPERLIPIDEMIA[ICD9: 272.4] [facility] CPT-4: 04173 05/31/2013 ([id number]) 14565 EST. P ATIENT, LEVEL III Diagnosis: ESSENTIAL HYPERTENSION[SNOMED: 34652707] Diagnosis: ABN FINDINGS NEC[ICD9: 796.9] Evelyn Yeung MD, [facility] CPT-4: 20532 11/30/2012 ([id number]) 40171 EST. P ATIENT, LEVEL IV Diagnosis: ESSENTIAL HYPERTENSION[SNOMED: 18292621] Diagnosis: HYPERLIPIDEMIA[ICD9: 272.4] Diagnosis: Abnormal Pap smear[ICD9: 796.9] Evelyn Yeung MD, [facility] CPT-4: 74280 05/31/2012 ([id number]) 84629 EST. P ATIENT, LEVEL III Diagnosis: Abnormal Pap smear[ICD9: 796.9] Diagnosis: ESSENTIAL HYPERTENSION[SNOMED: 54043294] Evelyn Yeung MD, [facility] CPT-4: 03075 11/25/2011 ([id number]) 30840 EST. 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 P ATIENT, LEVEL IV Diagnosis: ESSENTIAL HYPERTENSION[SNOMED: 65843048] Diagnosis: Hyperlipidemia[ICD9: 272.4] Diagnosis: Annual physical exam[ICD9: V70.0] Evelyn Yeung MD, [facility] CPT-4: 74472 04/14/2011 33706 EST. PATIENT, LEVEL III Diagnosis: ESSENTIAL HYPERTENSION[SNOMED: 26521336] Diagnosis: Dyspareunia, female[ICD9: 625.0] Evelyn Yeung MD, [facility] CPT-4: 34911 10/14/2010 Plan of Care Planned Activity Notes C odes Status Date Visit Plan: Hypertension - well con trolled - continue with current medications, continue with no added salt diet. Pt has been encouraged to exercise daily. The pt has been advised to call the office if there are any acute concerns about change in blood pressure readings at home. 09/06/2018 Patient Education: Patient Medication Summary Completed [...] spray. 07/08/2018 Appointment: Fay Marie WPtel: [phone] [facility] (30 min) Complex 07/08/2018 Patient Education: [...] cpap. 02/11/2018 Appointment: [phone] ([facility] min) Moderate 02/11/2018 Patient Education: Patient [...] no improvement 10/23/2017 Appointment: Fay Marie WPtel: Formerly named [facility] (15 min) Moderate 10/23/2017 Patient Education: Patient [...] to assure normal liver response to medications. Stopover on 4th toe right foot lateral surface - removed with scalpel. 08/13/2017 Appointment: Evelyn Yeung WPtel: [address] [place], [place] [phone] (15 min) Moderate 08/13/2017 Patient Education: Patient Medication Summary Completed 08/13/2017 Visit Plan: OWF-jhlfhvvtjd-oc goldberg es Callus right toe -healed-no further treatment indicated 07/16/2017 Appointment: Kat Mitchell WPtel: [address] [place], [place] [phone] [place] (15 min) Moderate 07/16/2017 Patient Education: Patient Medication Summary Completed 07/16/2017 Appointment: Kat Mitchell WPtel: [phone] [phone] (15 min) Moderate 07/14/2017 Visit Plan: Callus-right 4th toe-de brided today in the office-instructed patient on wound care and to call if symptoms do not resolve or if any worse-patient verbalized understanding of plan. 06/29/2017 Appointment: Kat Mitchell WPtel: [phone] [phone] (15 min) Moderate 06/29/2017 Patient Education: Patient Medication Summary Completed 06/29/2017 Visit Plan: Bronchitis-cough Discus sed natural and expected course of this diagnosis and need to alert me if symptoms do not follow expected course, or if any worse. RX sent to patient's pharmacy. 05/01/2017 Appointment: Kat Mitchell WPtel: [phone] [phone] [place] (10 min) Simple 05/01/2017 Patient [...] spray. 04/24/2017 Appointment: Fay Marie WPtel: [phone] [facility] [place] (15 min) Moderate 04/24/2017 Patient [...] warmth, discharge. 03/11/2017 [phone] ([facility] 03/11/2017 Patient Education: [...] medications. 02/19/2017 Appointment: [phone] (15 min) Moderate 02/19/2017 Patient Education: Patient [...] to medications. 10/16/2016 Appointment: Evelyn Yeung WPtel: Former[facility] named [facility] (15 min) Moderate 10/16/2016 Patient Education: Patient [...] monitor symptoms. 06/19/2016 Appointment: Evelyn Yeung WPtel: Former[facility] named [facility] (15 min) Moderate 06/19/2016 Patient Education: Patient Medication Summary Completed 06/19/2016 Patient Education: Obesity Completed 06/19/2016 Visit Plan: Left shoulder pain-adriana ent has done rest, ice, and anti inflammatories-shoulder pain persists and causing weakness in left arm- will xray shoulder/humerus and proceed with MRI if indicated-patient verbalized understanding of plan. 03/13/2016 Appointment: Kat Mitchell WPtel: Formerly named [phone] [place] (15 min) Moderate 03/13/2016 Appointment: Evelyn Yeung WPtel: Formerly named [facility] [place] (15 min) Moderate 03/13/2016 Patient Education: [...] at home. 02/22/2016 Appointment: Kat Mitchell WPtel: Formerly named [phone] [place] (15 min) Moderate 02/22/2016 Patient Education: Patient Medication Summary Completed 02/22/2016 Patient Education: Obesity Completed 02/22/2016 Appointment: Kat Mitchell WPtel: [phone] [phone] (30 min) Complex 02/06/2016 Visit Plan: HYPOTENSION - RECOMMEND ED PT TO DECREASE THE LISIONPRIL TO 20MG ONE TIME DAILY. 12/18/2015 Appointment: Evelyn Yeung WPtel: [phone] [phone] (15 min) Moderate 12/18/2015 Patient Education: Patient [...] at home. 11/13/2015 Appointment: Evelyn Yeung WPtel: [phone] [facility] (15 min) Moderate 11/13/2015 Patient Education: Patient [...] surrogate. 10/10/2015 [facility]ment: [phone] (30 min) Complex 10/10/2015 Patient Education: [...] at home. 07/10/2015 Appointment: Evelyn Yeung WPtel: [phone] [facility] (15 min) Moderate 07/10/2015 Patient Education: Patient [...] with cpap 06/05/2015 Appointment: [facility] Ye[facility]el[phone] (15 min) Moderate 06/05/2015 Patient Education: Patient [...] Hypertension Completed 04/09/2015 Appointment: Evelyn Yeung WPtel: [address] [place] [address] (15 min) Moderate 03/29/2015 Visit Plan: Hypertension [...] normal liver response to medications. 09/28/2014 Appointment: HartshorneAlonso petersony [facility]Ptel[phone] Follow up 09/28/2014 Patient Education: Patient Medication Summary Completed 09/28/2014 Patient Education: Hypertension Completed 09/28/2014 Care Plan: COMPLETE CBC AUTOMATED LOINC : 16261-6 Ordered 09/28/2014 Visit Plan: Cellulitis - RX [...] rest. 05/29/2014 Appointment: Evelyn Yeung WPtel: [phone] Follow up 05/29/2014 Patient Education: Patient Medication [...] medications. 11/29/2013 Appointment: Evelyn Yeung WPtel: [phone] [facility] Follow up 11/29/2013 Patient Education: Patient Medication Summary Completed 11/29/2013 Patient Education: Hypertension Completed 11/29/2013 Care Plan: COMPLETE CBC AUTOMATED LOINC : 00061-8 Ordered 11/29/2013 Visit Plan: Cellulitis - continue w ith oral antibiotics as previously directed, return to clinic as previously directed, call for acute change in symptoms, worsening redness, warmth, discharge. 10/04/2013 Appointment: Evelyn Yeung [facility]Ptel[phone] [facility] 10/04/2013 Patient Education: Patient Medication Summary Completed [...] 6 months 05/31/2013 Appointment: Evelyn Yeung WPtel: [phone] [facility] Follow up 05/31/2013 Patient Education: Patient Medication [...] years. 11/30/2012 Appointment: Evelyn Yeung [facility]Ptel[phone] [place] Pap Only 11/30/2012 Patient Education: Patient [...] 2011. 05/31/2012 Appointment: Evelyn Yeung WPtel: [phone] [place] Pap Only 05/31/2012 Patient Education: Patient [...] at home. 11/25/2011 Appointment: Evelyn Yeung [facility]Ptel: [phone] [place] Pap Only 11/25/2011 Patient Education: Patient Medication Summary Completed 11/25/2011 Patient Education: High Blood Pressure: Essential Hypertension Completed 11/25/2011 Appointment: Evelyn Yeung WPtel: [phone] [facility] [place] Pap Only 09/01/2011 Appointment: Evelyn Yeung WPtel: Formerly named [facility] [place] Pap Only 08/26/2011 Visit Plan: Hypertension [...] improved her hot flashes. 08/21/2011 Appointment: Evelyn Yenug WPtel: [address] [place], [place] [phone] [place] Pap Only 08/21/2011 Patient Education: Patient Medication Summary Completed 08/21/2011 Patient Education: High Blood Pressure: Essential Hypertension Completed 08/21/2011 Appointment: Evelyn Yeung WPtel: [address] [place], [place] [phone] [place] Other 04/16/2011 Visit Plan: Hypertension - [...] or prn. 04/14/2011 Appointment: Evelyn Yeung WPtel: [phone] [facility] [place] Pap Only 04/14/2011 Patient Education: Patient Medication Summary Completed 04/14/2011 Patient Education: High Blood Pressure: Essential Hypertension Completed 04/14/2011 Appointment: Ev[facility] Yeung [facility]Ptel[phone] [place] Injection 12/19/2010 Patient Education: Patient Medication Summary Completed 12/19/2010 Visit Plan: Hypertension - kenney sharma - continue with current medications, continue with no added salt diet. Pt has been encouraged to exercise daily. The pt has been advised to call the office if there are any acute concerns about change in blood pressure readings at home. Pain with intercourse- advised TREVA mabry to decrease discomfort. 10/14/2010 Appointment: Evelyn Yeung WPtel: [phone] [facility] [place] Other 10/14/2010 Patient Education: Patient Medication Summary Completed 10/14/2010 Instructions Comment . Hypertension - stu l controlled - continue with current medications, [...] pt doing well with the cpap. . TED-yofgxeeymd-ux changes Callus right toe -healed-no further treatment [...] to assure normal liver response to medications. Stopover on 4th toe right foot lateral surface [...]
--- OUTSIDE RECORDS SUMMARY | 2019-07-08 08:10 | XMS REPORT | CCD ---
Author Author Stephanie Yeung Organization Evelyn Yeung MD, [facility] Address [address] [place] [address] Phone Care Team Providers Care Fire Investigator Name Role Phone Evelyn Yeung PP Unavailable CCM Unavailable Summary Purpose Interface Exchange Insurance Providers Payer name Policy type / Coverage type Covered alliance party ID Effective Begin Date Effective End Date [facility] Commercial Insurance [id number] 2017 Unknown Family history First cousin Diagnosis [...] 10/14/2010 Employment Unknown Retir ed from [employer] kn[employer] in [employer] 10/14/[address]: 077007853 Never smoker 10/14/[address]: 257186639 Never drinks alcohol 10/14/2010 Has the patient [...] Codes Condition Status Onset Date Resolved Date Acute laryngopharyng itis ICD-9: 465.0 ICD-10: J06.0 Active 07/08/2018 Unknown Other allergic rhinitis ICD-9: 477.8 ICD-10: J30.89 Active 04/24/2017 Unknown Essential (primary) hypertension ICD-9: 401.1 ICD-10: I10 Active 02/21/2016 Unknown Mixed hyperlipidemia ICD-9: 272.2 ICD-10: E78.2 [...] Condition Codes Effectiv e Dates Condition Status Acute laryngopharyng itis ICD-9: 465.0 ICD-10: J06.0 07/08/2018 Active Other allergic rhinitis ICD-9: 477.8 ICD-10: J30.89 04/24/2017 Active Essential (primary) hypertension ICD-9: 401.1 ICD-10: I10 02/21/2016 Active Mixed hyperlipidemia ICD-9: 272.2 ICD-10: E78.2 [...] Date Stop Date Sta tus Fill Instructions Zithromax Z-Doroteo 250 mg tablet RxNorm: 026596 1 Tablet(s) PO UD 07/08/2018 No Stop Date Active Kenalog 40 mg/mL wander pension for injection RxNorm: 1328197 1 Milliliter(s) Inj 07/08/2018 07/08/2018 In active metoprolol succinate ER 50 mg tablet,extended release 24 hr RxNorm: 624188 Tablet(s) TAKE 1 TABLET TWICE DAILY 05/27/2018 06/25/2018 Inactive metoprolol succinate ER 50 mg tablet,extended release 24 hr RxNorm: 351799 Tablet(s) TAKE 1 TABLET TWICE DAILY 05/25/2018 05/26/2018 Inactive potassium chloride E R 10 mEq capsule,extended release RxNorm: 868433 1 Capsule(s) PO TIW TAKE 1 CAPSULE THREE TIMES WEEKLY 04/23/2018 04/17/2019 Active three times weekly- sent on 04/21/18- requested again 04/23/18 potassium chloride E R 10 mEq capsule,extended release RxNorm: 093688 1 Capsule(s) PO TIW TAKE 1 CAPSULE THREE TIMES WEEKLY 04/21/2018 04/22/2018 Inactive thre e times weekly chlorthalidone 25 mg tablet RxNorm: 215170 Tablet(s) TAKE 1 TABL ET EVERY MORNING 03/26/2018 03/20/2019 Ac tive simvastatin 20 mg ta blet RxNorm: 146337 Tablet(s) TAKE 1 TABL ET EVERY NIGHT 03/26/2018 03/20/2019 Ac tive lisinopril 20 mg tablet RxNorm: 552627 1 Tablet(s) PO daily 02/11/2018 05/06/2019 Active this is an update on her RX - she is onl y taking 20mg daily -please delete other rx's lisinopril 20 mg tablet RxNorm: 858295 1 Tablet(s) PO daily 11/20/2017 02/10/2018 Inactive lisinopril 40 mg tablet RxNorm: 327314 Tablet(s) TAKE 1 TABLET EVERY DAY 11/16/2017 11/19/2017 In active metoprolol succinate ER 50 mg tablet,extended release 24 hr RxNorm: 116289 Tablet(s) TAKE 1 TABLET TWICE DAILY 06/05/2017 05/24/2018 Inactive metoprolol succinate ER 50 mg tablet,extended release 24 hr RxNorm: 594457 Tablet(s) TAKE 1 TABLET TWICE DAILY 06/05/2017 06/04/2017 Inactive potassium chloride E R 10 mEq capsule,extended release RxNorm: 413563 1 Capsule(s) PO TIW TAKE 1 CAPSULE THREE TIMES WEEKLY 05/07/2017 04/20/2018 Inactive thre e times weekly potassium chloride E R 10 mEq capsule,extended release RxNorm: 216200 1 Capsule(s) PO daily TAKE 1 CAPSULE THREE TIMES WEEKLY 05/05/2017 05/06/2017 Inactive metoprolol succinate ER 50 mg tablet,extended release 24 hr RxNorm: 636346 Tablet(s) TAKE 1 TABLET TWICE DAILY 05/04/2017 06/04/2017 Inactive Phenergan with Codei ne Syrup RxNorm: 5-10 Milliliter(s) PO QID a s needed cough 05/01/2017 No Stop Date Active cefdinir 300 mg capsule RxNorm: 704841 1 Capsule(s) PO BID 05/01/2017 05/07/2017 Inactive Zithromax Z-Doroteo 250 mg tablet RxNorm: 884370 1 Tablet(s) PO UD 04/24/2017 06/22/2017 Inactive Phenergan with Codei ne Syrup RxNorm: 5-10 Milliliter(s) PO QID a s needed cough 04/24/2017 04/30/2017 In active prednisone 20 mg tablet RxNorm: 985087 2 Tablet(s) PO daily 04/24/2017 04/28/2017 Inactive chlorthalidone 25 mg tablet RxNorm: 023525 Tablet(s) TAKE 1 TABL ET EVERY MORNING 04/13/2017 03/25/2018 In active simvastatin 20 mg ta blet RxNorm: 714643 Tablet(s) TAKE 1 TABL ET EVERY NIGHT 04/08/2017 03/25/2018 In active Kenalog 40 mg/mL wander pension for injection RxNorm: 8018216 1 Milliliter(s) Inj 03/11/2017 03/11/2017 In active prednisone 20 mg tablet RxNorm: 339987 2 Tablet(s) PO daily 03/11/2017 03/15/2017 Inactive simvastatin 20 mg ta blet RxNorm: 612380 TAKE 1 TABLET EVERY DAY 01/02/2017 04/07/2017 Inactive lisinopril 40 mg tablet RxNorm: 438874 TAKE 1 TABLET EVERY DAY 11/24/2016 08/20/2017 Inactive metoprolol succinate ER 50 mg tablet,extended release 24 hr RxNorm: 756188 TAKE 1 TABLET TWICE DAILY 11/24/2016 05/03/2017 Inactive fluconazole 150 mg t ablet RxNorm: 616626 1 Tablet(s) PO daily prn yeast infection symptoms 10/16/2016 10/25/2016 Inactive potassium chloride E R 10 mEq capsule,extended release RxNorm: 829769 TAKE 1 CAPSULE THREE TIMES WEEKLY 08/12/2016 05/04/2017 Inactive chlorthalidone 25 mg tablet RxNorm: 031992 TAKE 1 TABLET EVERY M ORNING 06/30/2016 04/12/2017 In active simvastatin 20 mg ta blet RxNorm: 665450 TAKE 1 TABLET EVERY DAY 01/21/2016 01/01/2017 Inactive lisinopril 40 mg tablet RxNorm: 328905 1/2 Tablet(s) daily 12/18/2015 11/23/2016 Inactive metoprolol succinate ER 50 mg tablet,extended release 24 hr RxNorm: 625717 Tablet(s) TAKE 1 TABLET TWICE DAILY 12/13/2015 11/23/2016 Inactive metoprolol succinate ER 50 mg tablet,extended release 24 hr RxNorm: 280205 Tablet(s) TAKE 1 TABLET TWICE DAILY 12/13/2015 12/12/2015 Inactive metoprolol succinate ER 50 mg tablet,extended release 24 hr RxNorm: 921039 Tablet(s) TAKE 1 TABLET TWICE DAILY 11/13/2015 12/12/2015 Inactive Keflex 500 mg capsule RxNorm: 881101 1 Capsule(s) PO TID 11/13/2015 11/19/2015 Inactive chlorthalidone 25 mg tablet RxNorm: 025420 1 Tablet(s) PO QAM 08/08/2015 06/29/2016 Inactive potassium chloride E R 10 mEq capsule,extended release RxNorm: 771476 1 Capsule(s) PO TIW 08/08/2015 08/01/2016 Inactive potassium chloride E R 10 mEq capsule,extended release RxNorm: 406022 1 Capsule(s) PO TIW 06/20/2015 08/07/2015 Inactive lisinopril 40 mg tablet RxNorm: 639747 TAKE 1 TABLET EVERY DAY 2015 12/17/2015 Inactive potassium chloride E R 10 mEq capsule,extended release RxNorm: 066480 1 Capsule(s) PO TIW 2015 06/19/2015 Inactive chlorthalidone 25 mg tablet RxNorm: 059431 1 Tablet(s) PO QAM 06/05/2015 08/07/2015 Inactive potassium chloride E R 10 mEq capsule,extended release RxNorm: 750954 1 Capsule(s) PO TIW 06/05/2015 06/17/2015 Inactive lisinopril 40 mg tablet RxNorm: 622844 1/2 Tablet(s) PO BID 05/07/2015 06/17/2015 Inactive amoxicillin 500 mg t ablet RxNorm: 325932 4 Tablet(s) PO one ho ur prior to dental appts UD 05/07/2015 10/08/2015 Inactive amoxicillin 500 mg t ablet RxNorm: 578705 4 Tablet(s) PO one ho ur prior to dental appts UD 05/04/2015 05/06/2015 Inactive lisinopril 40 mg tablet RxNorm: 460698 1/2 Tablet(s) PO BID 05/04/2015 05/06/2015 Inactive amoxicillin 500 mg t ablet RxNorm: 924802 4 Tablet(s) PO one ho ur prior to dental appts UD 05/01/2015 05/03/2015 Inactive lisinopril 40 mg tablet RxNorm: 931170 1/2 Tablet(s) PO BID TAKE 1 TABLET DAILY 05/01/2015 05/03/2015 In active metoprolol succinate ER 50 mg tablet,extended release 24 hr RxNorm: 130168 TAKE 1 AND 1/2 TABLETS TWICE DAILY 04/16/2015 11/12/2015 Inactive simvastatin 20 mg ta blet RxNorm: 829762 TAKE 1 TABLET EVERY DAY 04/16/2015 01/10/2016 Inactive acyclovir 800 mg tablet RxNorm: 306142 1 Tablet(s) PO TID 11/17/2014 11/26/2014 Inactive acyclovir 400 mg tablet RxNorm: 841427 2 Tablet(s) PO QID 10/06/2014 10/05/2014 Inactive acyclovir 400 mg tablet RxNorm: 072955 2 Tablet(s) PO QID 10/06/2014 10/15/2014 Inactive cephalexin 500 mg ca psule RxNorm: 907772 1 Capsule(s) PO TID 08/31/2014 09/04/2014 Inactive Bactroban 2 % topica l ointment RxNorm: 483144 1 Application TOP BID 08/31/2014 10/08/2015 Inactive Bactroban 2 % topica l ointment RxNorm: 101979 1 Application TOP BID 08/31/2014 09/04/2014 Inactive simvastatin 20 mg ta blet RxNorm: 323571 Tablet(s) TAKE 1 TABL ET DAILY 03/31/2014 04/15/2015 In active lisinopril 40 mg tablet RxNorm: 900869 Tablet(s) TAKE 1 TABLET DAILY 03/31/2014 04/30/2015 In active metoprolol succinate ER 50 mg tablet,extended release 24 hr RxNorm: 634159 Tablet(s) TAKE ONE AND ONE-HALF TABLETS (75 MG) TWICE A DAY 03/09/2014 04/15/2015 Inactive Prio r authorization approved for this med until 03-09-2015 metoprolol succinate ER 50 mg tablet,extended release 24 hr RxNorm: 412369 Tablet(s) TAKE ONE AND ONE-HALF TABLETS (75 MG) TWICE A DAY 03/06/2014 03/08/2014 Inactive simvastatin 20 mg ta blet RxNorm: 373618 TAKE 1 TABLET DAILY 01/24/2014 03/30/2014 Inactive lisinopril 40 mg tablet RxNorm: 419081 TAKE 1 TABLET DAILY 01/24/2014 03/30/2014 Inactive simvastatin 20 mg ta blet RxNorm: 634324 TAKE 1 TABLET DAILY 10/24/2013 01/23/2014 Inactive cephalexin 500 mg ca psule RxNorm: 281557 1 Capsule(s) PO TID 10/04/2013 10/08/2013 Inactive metoprolol succinate ER 50 mg tablet,extended release 24 hr RxNorm: 286254 TAKE ONE AND ONE-HALF TABLETS (75 MG) TWICE A DAY 09/16/2013 03/05/2014 Inactive simvastatin 20 mg ta blet RxNorm: 589198 Tablet(s) PO TAKE 1 T ABLET DAILY 04/21/2013 10/23/2013 In active metoprolol succinate ER 50 mg tablet,extended release 24 hr RxNorm: 730866 Tablet(s) PO TAKE ONE AND ONE-HALF TABLETS (75 MG) TWICE A DAY 03/24/2013 09/15/2013 Inactive metoprolol succinate ER 50 mg tablet,extended release 24 hr RxNorm: 264229 Tablet(s) PO TAKE ONE AND ONE-HALF TABLETS (75 MG) TWICE A DAY 12/20/2012 03/23/2013 Inactive lisinopril 40 mg tablet RxNorm: 457874 Tablet(s) PO TAKE 1 TABLET DAILY 11/18/2012 01/23/2014 In active simvastatin 20 mg ta blet RxNorm: 200340 Tablet(s) PO TAKE 1 T ABLET DAILY 08/06/2012 04/20/2013 In active metoprolol succinate ER 50 mg tablet,extended release 24 hr RxNorm: 850696 Tablet(s) PO TAKE ONE AND ONE-HALF TABLETS (75 MG) TWICE A DAY 06/15/2012 12/19/2012 Inactive metoprolol succinate ER 50 mg tablet,extended release 24 hr RxNorm: 726530 Tablet(s) PO TAKE ONE AND ONE-HALF TABLETS (75 MG) TWICE A DAY 03/01/2012 06/14/2012 Inactive Diflucan 150 mg tablet RxNorm: 914752 1 Tablet(s) PO daily 12/03/2011 12/02/2011 Inactive Diflucan 150 mg tablet RxNorm: 546409 1 Tablet(s) PO daily 12/03/2011 12/07/2011 Inactive Diflucan 150 mg tablet RxNorm: 173599 1 Tablet(s) PO daily 12/03/2011 12/02/2011 Inactive Influenza Virus Vacc ine 0.5 mL RxNorm: IM 11/25/2011 11/25/2011 Inactive metoprolol succinate ER 50 mg tablet,extended release 24 hr RxNorm: 540352 Tablet(s) PO 09/16/2011 02/29/2012 Inactive TAKE ONE AND ONE-HALF TABLETS (75 MG) TW ICE A DAY lisinopril 40 mg tablet RxNorm: 644222 Tablet(s) PO 08/25/2011 11/17/2012 Inactive TAKE 1 TABLET DAILY simvastatin 20 mg ta blet RxNorm: 260271 Tablet(s) PO 07/31/2011 08/05/2012 Inactive TAKE 1 TABLET DAILY Influenza Virus Vacc ine 0.5 mL RxNorm: 1/2 Milliliter(s) IM 12/19/2010 12/19/2010 Inactive metoprolol succinate ER 50 mg tablet,extended release 24 hr RxNorm: 320259 Tablet(s) PO 12/02/2010 09/15/2011 Inactive TAKE ONE AND ONE-HALF TABLETS (75 MG) TW ICE A DAY Calcium 600 + D(3) 6 00 mg (1,500 mg)-400 unit Tab RxNorm: 013339 1 Tablet(s) PO daily No Start Date Active Tylenol PM Extra Str ength 25 mg-500 mg Tab RxNorm: 8927815 1 Tablet(s) PO QHS No Start Date Active Probiotic & Acidophi lesa oral RxNorm: oral No Start D ate Active Fish Oil 1,200 mg-14 4 mg-216 mg Cap RxNorm: 1 Capsule(s) PO BID No Start Date Active 1400mg multivitamin Cap RxNorm: 1 Capsule(s) PO daily No Start Date Active Aspirin Childrens 81 mg Chewable Tab RxNorm: 651018 1 Tablet(s) PO daily No Start Date Active premarin 0.5% Vagina l cream RxNorm: [address] art Date 08/30/2014 Inactive simvastatin 20 mg Tab RxNorm: 723994 1 Tablet(s) PO daily No Start Date 07/30/2011 Inactive lisinopril 40 mg Tab RxNorm: 988106 1 Tablet(s) PO daily No Start Date 08/24/2011 Inactive Fish Oil 340 mg-1,00 0 mg Cap RxNorm: 1 Capsule(s) PO TID No Start Date 04/14/2011 Inactive [place]ura 20 mg Tab RxNorm: 887251 1 Tablet(s) PO daily No Start Date 04/14/2011 Inactive metoprolol succinate ER 50 mg 24 hr Tab RxNorm: 461054 1 &1/2 Tablet(s) PO d aily No Start Date 12/01/2010 Inactive Medication Administered Medication Codes Instruc tions Start Date Status Kenalog 40 mg/mL suspension for injection RxNorm: 3404452 1Milliliter 07/08/2018 N o longer Active Kenalog 40 mg/mL suspension for injection RxNorm: 2454960 1Milliliter 03/11/2017 N o longer Active Influenza Virus Vaccine 0.5 mL RxNorm: 11/25/2011 No longer Active Influenza Virus Vaccine 0.5 mL RxNorm: 1/2Milliliter 12/19/2010 No longer Active Immunizations Vaccine Codes Date Status Influenza CVX: 141 10/23 completed Influenza CVX: 141 12/09 completed Influenza CVX: 141 11/12 completed Influenza CVX: 141 11/24 completed Influenza CVX: 141 12/19 completed Assessments Condition Codes Effectiv e Dates Acute laryngopharyngitis ICD-10: J06 .0 ICD-9: 465.0 07/08/2018 Other allergic rhinitis ICD-10: J30. 89 ICD-9: 477.8 07/08/2018 Obstructive sleep apnea (adult) (pediatric) ICD-10: G47.33 ICD-9: 327.23 02/11/2018 Mixed hyperlipidemia ICD-10: E78.2 ICD-9: 272.2 02/11/2018 Essential (primary) hypertension ICD -10: I10 ICD-9: 401.1 02/11/2018 Encounter for screening mammogram for ma [...] Visit Reason For Visit Effective Dates Notes sinus congestion 07/08/2018 hypertension 02/11/2018 skin lesion [...] 30.2 pg 10/17/2016 Cbc With Differential Ord2 Dent% 6.3 % 10/17/2016 Cbc With Differential Ord2 [...] 1.37 K/ul 10/17/2016 Cbc With Differential Ord2 Dent ABS# 0.3 K/ul 10/17/2016 Cbc With Differential Ord2 Eos ABS# 0.2 K/ul 10/17/2016 Cbc With Differential Ord2 Baso ABS# 0.0 K/ul 10/17/2016 Comp Metabolic Lco578 NA 141 mEq/L 10/17/2016 Comp Metabolic Jxo887 K 3.9 mEq/L 10/17/2016 Comp Metabolic Qpl253 CL 105 mEq/L 10/17/2016 Comp Metabolic Zeq985 CO2 26.0 mEq/L 10/17/2016 Comp Metabolic Scq908 AN ION GAP 14 10/17/2016 Comp Metabolic Quy595 GL UCOSE 100 mg/dL 10/17/2016 Comp Metabolic Fkh007 Cr eat 1.0 mg/dL 10/17/2016 Comp Metabolic Vka632 eG FR 61 ml/min/1.73m2 10/17 Comp Metabolic Gpf799 BUN 17 mg/dL 10/17/2016 Comp Metabolic Sta973 B/ C Ratio 17.7 Ratio 10/17/2016 Comp Metabolic Eoi067 CA LCIUM 9.8 mg/dL 10/17/2016 Comp Metabolic Nov808 AL K PHOS 44 U/L 10/17/2016 Comp Metabolic Sru847 T(SGOT) 15 U/L 10/17/2016 Comp Metabolic Lpv662 AL T(SGPT) 16 U/L 10/17/2016 Comp Metabolic Wbu035 BI LI T 0.5 mg/dL 10/17/2016 Comp Metabolic Fty328 AL BUMIN 4.3 g/dL 10/17/2016 Comp Metabolic Jeu712 TP RO 6.5 g/dL 10/17/2016 Comp Metabolic Jyf208 GL OB 2.3 g/dL 10/17/2016 Comp Metabolic Rtb905 A/ G Ratio 1.9 Ratio 10/17/2016 Comp Metabolic Ivy401 Os mo 283 mOsmo 10/17/2016 Lipid Ord30 CHOL 134 mg/dL 10/17/2016 Lipid Ord30 HDL 48.0 mg/dl 10/17/2016 Lipid Ord30 TRIG 123 mg/dL 10/17/2016 Lipid Ord30 LDL 61 mg/dL 10/17/2016 Lipid Ord30 C/HDL 2.8 Ratio 10/17/2016 Comp Metabolic Pck076 NA 140 mEq/L 02/28/2016 Comp Metabolic Oaw123 K 3.9 mEq/L 02/28/2016 Comp Metabolic Nqs976 CL 102 mEq/L 02/28/2016 Comp Metabolic Wvj683 CO2 31.0 mEq/L 02/28/2016 Comp Metabolic Eba757 AN ION GAP 11 02/28/2016 Comp Metabolic Tdc753 GL UCOSE 87 mg/dL 02/28/2016 Comp Metabolic Qjj972 Cr eat 1.2 mg/dL 02/28/2016 Comp Metabolic Cdn500 eG FR 45 ml/min/1.73m2 02/27 Comp Metabolic Orc713 BUN 23 mg/dL 02/28/2016 Comp Metabolic Ccb482 B/ C Ratio 18.5 Ratio 02/28/2016 Comp Metabolic Iwr233 CA LCIUM 9.2 mg/dL 02/28/2016 Comp Metabolic Ycy762 AL K PHOS 53 U/L 02/28/2016 Comp Metabolic Ugw561 T(SGOT) 16 U/L 02/28/2016 Comp Metabolic Dfn717 AL T(SGPT) 17 U/L 02/28/2016 Comp Metabolic Zrx586 BI LI T 0.5 mg/dL 02/28/2016 Comp Metabolic Enf597 AL BUMIN 4.2 g/dL 02/28/2016 Comp Metabolic Eal215 TP RO 6.7 g/dL 02/28/2016 Comp Metabolic Kwl089 GL OB 2.5 g/dL 02/28/2016 Comp Metabolic Kje418 A/ G Ratio 1.7 Ratio 02/28/2016 Comp Metabolic Jfb864 Os mo 282 mOsmo 02/28/2016 Cbc With [...] 30.5 pg 02/28/2016 Cbc With Differential Ord2 Dent% 5.6 % 02/28/2016 Cbc With Differential Ord2 [...] 1.21 K/ul 02/28/2016 Cbc With Differential Ord2 Dent ABS# 0.3 K/ul 02/28/2016 Cbc With Differential Ord2 Eos ABS# 0.2 K/ul 02/28/2016 Cbc With Differential Ord2 Baso ABS# 0.0 K/ul 02/28/2016 Lipid Ord30 CHOL 141 mg/dL 02/28/2016 Lipid Ord30 HDL 48.0 mg/dl 02/28/2016 Lipid Ord30 TRIG 144 mg/dL 02/28/2016 Lipid Ord30 LDL 64 mg/dL 02/28/2016 Lipid Ord30 C/HDL 2.9 Ratio 02/28/2016 Tsh Ord6 hTSH II 2.22 uIU/mL 02/28/2016 Culture Urine [id number] URI NE CULTURE SEE NOTES 11/15/2015 Urine [...] Ord30 C/HDL 2.7 Ratio 03/19/2015 Comp Metabolic Ipc276 NA 139 mEq/L 03/19/2015 Comp Metabolic Tgc928 K 4.0 mEq/L 03/19/2015 Comp Metabolic Pol520 CL 105 mEq/L 03/19/2015 Comp Metabolic Adi763 CO2 29.0 mEq/L 03/19/2015 Comp Metabolic Kbt966 AN ION GAP 9 03/19/2015 Comp Metabolic Nly884 GL UCOSE 90 mg/dL 03/19/2015 Comp Metabolic Aam618 Cr eat 0.8 mg/dL 03/19/2015 Comp Metabolic Pxg941 eG FR 80 ml/min/1.73m2 03/19 Comp Metabolic Hzw212 BUN 14 mg/dL 03/19/2015 Comp Metabolic Kcg605 B/ C Ratio 18.4 Ratio 03/19/2015 Comp Metabolic Qff925 CA LCIUM 9.5 mg/dL 03/19/2015 Comp Metabolic Niy556 AL K PHOS 39 U/L 03/19/2015 Comp Metabolic Vsr909 T(SGOT) 17 U/L 03/19/2015 Comp Metabolic Irk826 AL T(SGPT) 22 U/L 03/19/2015 Comp Metabolic Zjv640 BI LI T 0.5 mg/dL 03/19/2015 Comp Metabolic Gas171 AL BUMIN 4.2 g/dL 03/19/2015 Comp Metabolic Wkk039 TP RO 6.3 g/dL 03/19/2015 Comp Metabolic Lxo214 GL OB 2.1 g/dL 03/19/2015 Comp Metabolic Liv737 A/ G Ratio 2.0 Ratio 03/19/2015 Comp Metabolic Wub653 Os mo 278 mOsmo 03/19/2015 Tsh Ord6 [...] 29.9 pg 03/19/2015 Cbc With Differential Ord2 Dent% 5.1 % 03/19/2015 Cbc With Differential Ord2 [...] 1.52 K/ul 03/19/2015 Cbc With Differential Ord2 Dent ABS# 0.2 K/ul 03/19/2015 Cbc With Differential [...] Ord30 C/HDL 3.2 Ratio 09/29/2014 Comp Metabolic Ygr471 NA 139 mEq/L 09/29/2014 Comp Metabolic Nfz774 K 4.1 mEq/L 09/29/2014 Comp Metabolic Uqd725 CL 104 mEq/L 09/29/2014 Comp Metabolic Fuf395 CO2 31.0 mEq/L 09/29/2014 Comp Metabolic Tgl266 AN ION GAP 8 09/29/2014 Comp Metabolic Rhw421 GL UCOSE 96 mg/dL 09/29/2014 Comp Metabolic Jnq388 Cr eat 0.8 mg/dL 09/29/2014 Comp Metabolic Ujm822 eG FR 71 ml/min/1.73m2 09/29 Comp Metabolic Xqf427 BUN 13 mg/dL 09/29/2014 Comp Metabolic Aow682 B/ C Ratio 15.5 Ratio 09/29/2014 Comp Metabolic Dom616 CA LCIUM 9.5 mg/dL 09/29/2014 Comp Metabolic Cew715 AL K PHOS 42 U/L 09/29/2014 Comp Metabolic Ypd608 T(SGOT) 20 U/L 09/29/2014 Comp Metabolic Jbp200 AL T(SGPT) 26 U/L 09/29/2014 Comp Metabolic Dzl898 BI LI T 0.5 mg/dL 09/29/2014 Comp Metabolic Dgp466 AL BUMIN 4.4 g/dL 09/29/2014 Comp Metabolic Eoa870 TP RO 6.5 g/dL 09/29/2014 Comp Metabolic Qgf445 GL OB 2.1 g/dL 09/29/2014 Comp Metabolic Qde959 A/ G Ratio 2.1 Ratio 09/29/2014 Comp Metabolic Cpo013 Os mo 278 mOsmo 09/29/2014 Tsh Ord6 [...] of Systems System Result Effective Dates Constitutional recent illness 07/08/2018 Constitutional chills Constitutional [...] Result Effective Dates Notes Full Exam - ENT Constitutional general appearance [...] masses 11/30/2012 None Full Exam - General 1995 Musculoskeletal [...] unsteadiness 05/31/2012 None Full Exam - General 1995 Neurologic cranial nerves Overall: crainial nerves 2 - 12 grossly intact 05/31/2012 None Full Exam - General 1994 Psychiatric orientation/consciousness Overall: oriented to person, place and time 05/31/2012 None Full Exam - General 1994 Psychiatric mood and affect Overall: normal mood and affect 05/31/2012 None Full Exam - General 1995 Psychiatric mood and affect Mood: happy 05/31/2012 None Full Exam - General 1995 Neck thyroid Overall: normal consistency 11/25/2011 None [...] retractions 08/21/2011 None Full Exam - General 1995 Respiratory respiratory effort/rhythm Overall: normal rate 08/21/2011 None Full Exam - General 1994 Cardiovascular auscultation of heart Overall: regular rate 08/21/2011 None Full Exam - General 1995 Cardiovascular auscultation of heart Overall: normal heart [...] developed 08/21/2011 None Full Exam - General 1995 [...] affect 08/21/2011 None Full Exam - General 1995 Psychiatric mood and affect Mood: happy 08/21/2011 None Full Exam - General 1995 Respiratory auscultation Overall: breath sounds clear bilaterally [...] distress 04/14/2011 None Full Exam - General 1995 Eyes pupils and irises Overall: pupils equal, round, reactive to light and accomodation 04/14/2011 None Full Exam - General 1995 [...] CPT-4: J3301 07/08/2018 THER/PROPH/DIAG INJ SC/IM CPT-4: 63753 07/08/2018 FLU VAC NO PRSV 4 VA L 3 YRS+ CPT-4: 37577 10/23/2017 ADMIN INFLUENZA VIRU S VAC CPT-4: G0008 10/23/2017 THER/PROPH/DIAG INJ SC/IM CPT-4: 55899 03/11/2017 TRIAMCINOLONE ACET I [place] NOS CPT-4: J3301 03/11/2017 FLU VAC NO PRSV 4 VA L 3 YRS+ CPT-4: 87754 12/09/2016 ADMIN INFLUENZA VIRU S VAC CPT-4: G0008 12/09/2016 URINALYSIS NONAUTO W /O SCOPE CPT-4: 58609 11/13/2015 IMMUNIZATION ADMIN CPT- 4: 36799 11/13/2015 FLU VACC 4 [place] 3 YRS PLUS IM SNOMED CT: 70223010 CPT-4: 56808 11/13/2015 PPPS, SUBSEQ VISIT CPT- 4: G0439 10/10/2015 IMMUNIZATION ADMIN CPT- 4: 16856 11/25/2011 Influenza Virus Vacc ine, Split Virus, >3 Yrs, IM CPT-4: 51366 11/25/2011 ADMIN INFLUENZA VIRU S VAC CPT-4: G0008 12/19/2010 FLULAVAL VACC, 3 YRS & >, IM CPT-4: Q2036 12/19/2010 Vital Signs Date Vital 07/08/2018 Blood Pressure 1: 132/76 Code: 8480-6 BMI: 34.7 Code: 32939-3 Heart Rate 1: 72 bpm Height: 5'3" SpO2: 98% Weight: 196 lbs 02/11/2018 Blood Pressure 1: 130/70 Code: 8480-6 BMI: 35.1 Code: 49898-7 Heart Rate 1: 64 bpm Height: 5'3" SpO2: 95% Weight: 198 lbs 10/23/2017 Blood Pressure 1: 124/66 Code: 8480-6 BMI: 34.7 Code: 15677-1 Heart Rate 1: 67 bpm Height: 5'3" SpO2: 95% Weight: 196 lbs 08/13/2017 Blood Pressure 1: 128/82 Code: 8480-6 BMI: 34.7 Code: 67294-7 Heart Rate 1: 74 bpm Height: 5'3" SpO2: 95% Weight: 196 lbs 07/16/2017 Blood Pressure 1: 126/80 Code: 8480-6 BMI: 34.7 Code: 12006-5 Heart Rate 1: 62 bpm Height: 5'3" SpO2: 96% Weight: 196 lbs 06/29/2017 Blood Pressure 1: 122/70 Code: 8480-6 BMI: 35.1 Code: 84206-0 Heart Rate 1: 74 bpm Height: 5'3" SpO2: 94% Weight: 198 lbs 05/01/2017 Blood Pressure 1: 120/68 Code: 8480-6 BMI: 35.1 Code: 06653-7 Heart Rate 1: 76 bpm Height: 5'3" SpO2: 98% Weight: 198 lbs 04/24/2017 Blood Pressure 1: 142/80 Code: 8480-6 BMI: 35.1 Code: 59427-5 Heart Rate 1: 75 bpm Height: 5'3" SpO2: 98% Weight: 198 lbs 03/11/2017 Blood Pressure 1: 128/74 Code: 8480-6 BMI: 34.9 Code: 82908-3 Heart Rate 1: 68 bpm Height: 5'3" SpO2: 96% Weight: 197 lbs 02/19/2017 Blood Pressure 1: 108/62 Code: 8480-6 BMI: 34.9 Code: 19551-1 Heart Rate 1: 74 bpm Height: 5'3" SpO2: 97% Weight: 197 lbs 10/16/2016 Blood Pressure 1: 130/72 Code: 8480-6 BMI: 34.5 Code: 44165-6 Heart Rate 1: 65 bpm Height: 5'3" SpO2: 978% Weight: 194 lbs 8 oz 06/19/2016 Blood Pressure 1: 134/80 Code: 8480-6 BMI: 32.9 Code: 18204-5 Heart Rate 1: 69 bpm Height: 5'3" SpO2: 98% Weight: 186 lbs 03/13/2016 Blood Pressure 1: 118/74 Code: 8480-6 BMI: 32.4 Code: 14502-9 Heart Rate 1: 71 bpm Height: 5'3" SpO2: 96% Weight: 183 lbs 02/22/2016 Blood Pressure 1: 116/64 Code: 8480-6 BMI: 31.5 Code: 56523-7 Heart Rate 1: 71 bpm Height: 5'3" SpO2: 99% Weight: 178 lbs 12/18/2015 Blood Pressure 1: 94/60 Code: 8480-6 BMI: 31.1 Code: 35834-7 Heart Rate 1: 72 bpm Height: 5'3" SpO2: 99% Weight: 175 lbs 8 oz 11/13/2015 Blood Pressure 1: 104/64 Code: 8480-6 BMI: 32.4 Code: 15013-6 Heart Rate 1: 66 bpm Height: 5'3" SpO2: 97% Weight: 183 lbs 10/10/2015 Blood Pressure 1: 112/67 Code: 8480-6 BMI: 32.6 Code: 06175-9 Heart Rate 1: 78 bpm Height: 5'3" SpO2: 97% Weight: 184 lbs 07/23/2015 Blood Pressure 1: 108/64 Code: 8480-6 Blood Pressure 1: 10464 Code: 8480-6 Heart Rate 1: 70 bpm SpO2: 97% 07/10/2015 Blood Pressure 1: 118/64 Code: 8480-6 BMI: 32.6 Code: 97580-5 Heart Rate 1: 61 bpm Height: 5'3" SpO2: 98% Weight: 184 lbs 06/05/2015 Blood Pressure 1: 164/70 Code: 8480-6 BMI: 32.4 Code: 35426-7 Heart Rate 1: 68 bpm Height: 5'3" SpO2: 97% Weight: 183 lbs 05/01/2015 Blood Pressure 1: 150/78 Code: 8480-6 BMI: 32.4 Code: 67456-7 Heart Rate 1: 87 bpm Height: 5'3" SpO2: 95% Weight: 183 lbs 04/09/2015 Blood Pressure 1: 158/68 Code: 8480-6 BMI: 32.9 Code: 88876-9 Heart Rate 1: 78 bpm Height: 5'3" SpO2: 97% Weight: 186 lbs 03/26/2015 Blood Pressure 1: 140/76 Code: 8480-6 BMI: 33.7 Code: 77085-0 Heart Rate 1: 64 bpm Height: 5'3" SpO2: 98% Weight: 190 lbs 11/17/2014 Blood Pressure 1: 146/80 Code: 8480-6 BMI: 33.5 Code: 73548-6 Heart Rate 1: 60 bpm Height: 5'3" SpO2: 97% Weight: 189 lbs 10/31/2014 Blood Pressure 1: 130/72 Code: 8480-6 BMI: 33.7 Code: 52700-3 Heart Rate 1: 59 bpm Height: 5'3" SpO2: 96% Weight: 190 lbs 09/28/2014 Blood Pressure 1: 130/86 Code: 8480-6 Blood Pressure 1: 130/72 Code: 8480-6 BMI: 33.7 Code: 32163-0 Heart Rate 1: 58 bpm Height: 5'3" SpO2: 97% Weight: 190 lbs 08/31/2014 Blood Pressure 1: 122/84 Code: 8480-6 BMI: 34.0 Code: 23098-3 Height: 5'3" Weight: 192 lbs 05/29/2014 Blood Pressure 1: 120/68 Code: 8480-6 BMI: 33.8 Code: 63769-1 Heart Rate 1: 87 bpm Height: 5'3" SpO2: 97% Weight: 191 lbs 11/29/2013 Blood Pressure 1: 138/76 Code: 8480-6 BMI: 33.8 Code: 44626-2 Heart Rate 1: 68 bpm Height: 5'3" Weight: 191 lbs 10/04/2013 Blood Pressure 1: 140/88 Code: 8480-6 BMI: 33.1 Code: 49012-3 Heart Rate 1: 72 bpm Height: 5'3" Weight: 187 lbs 05/31/2013 Blood Pressure 1: 132/84 Code: 8480-6 Heart Rate 1: 60 bpm Weight: 191 lbs 11/30/2012 Blood Pressure 1: 128/72 Code: 8480-6 BMI: 33.5 Code: 44051-1 Heart Rate 1: 72 bpm Height: 5'3" Weight: 189 lbs 05/31/2012 Blood Pressure 1: 126/66 Code: 8480-6 BMI: 35.1 Code: 50197-5 Heart Rate 1: 72 bpm Height: 5'3" Weight: 198 lbs 11/25/2011 Blood Pressure 1: 156/80 Code: 8480-6 BMI: 34.2 Code: 26008-9 Heart Rate 1: 64 bpm Height: 5'3" Weight: 196 lbs 08/21/2011 Blood Pressure 1: 118/78 Code: 8480-6 Heart Rate 1: 68 bpm Respiratory Rate: 16 bpm Weight: 184 lbs 04/14/2011 Blood Pressure 1: 128/68 Code: 8480-6 BMI: 34.2 Code: 29109-6 Heart Rate 1: 56 bpm Height: 5'3" Respiratory Rate: 20 bpm Weight: 193 lbs 10/14/2010 Blood Pressure 1: 124/72 Code: 8480-6 BMI: 30.9 Code: 19799-6 Heart Rate 1: 60 bpm Height: 5'4" Respiratory Rate: 12 bpm Weight: 180 lbs Functional Status No Functional Status data History of Present Illness Symptom Name Status Resu lt Effective Date Notes Location maxillary sin uses 07/08/2018 None Quality [...] ate 06/29/2017 None cough Location in the roat 05/01/2017 None cough Quality constant 05/01/2017 [...] 03/11/2017 None rash Location-Head/Neck on the left anabaptism 03/11/2017 None rash Location-Head/Neck on the right [...] high fiber / whole grain per day: 10/10/2015 None Annual Medicare Wellness Exam Nutrition [...] dizziness 11/29/2013 1 episode reported last w [place] hypertension Pertinent Findings Denies dyspnea 11/29/2013 None [...] Encounters Encounter Performer Loca tion Codes Date 34121 EST. PATIENT, LEVEL III Diagnosis: Acute laryngopharyngitis[ICD10: J06.0] Diagnosis: Other allergic rhinitis[ICD10: J30.89] [facility] CPT-4: 41755 07/08/2018 ([id number]) 85788 EST. P ATIENT, LEVEL IV Diagnosis: Essential (primary) hypertension[ICD10: I10] Diagnosis: Mixed hyperlipidemia[ICD10: E78.2] Diagnosis: Obstructive sleep apnea (adult) (pediatric)[ICD10: G47.33] Evelyn Yeung MD, [facility] CPT-4: 59679 02/11/2018 [id number] EST. PATIENT, LEVEL III Diagnosis: Plantar wart[ICD10: B07.0] Diagnosis: Contusion of right upper arm, initial encounter[ICD10: S40.021A] Diagnosis: Corns and callosities[ICD10: L84] Diagnosis: VACCIN FOR INFLUENZA[ICD10: Z23] Fay Yeung MD, [facility] CPT-4: 63760 10/23/2017 ([id number]) 93937 EST. P ATIENT, LEVEL IV Diagnosis: Essential (primary) hypertension[ICD10: I10] Diagnosis: Corns and callosities[ICD10: L84] Diagnosis: Mixed hyperlipidemia[ICD10: E78.2] Evelyn Yeung MD, [facility] CPT- 4: 48543 08/13/2017 ([id number]) 48527 EST. P ATIENT, LEVEL III Diagnosis: Essential (primary) hypertension[ICD10: I10] Diagnosis: Corns and callosities[ICD10: L84] Kat Yeung MD, [facility] CPT- 4: 05133 07/16/2017 ([id number]) 09752 EST. P ATIENT, LEVEL III Diagnosis: Pain in right toe(s)[ICD10: M79.674] Diagnosis: Corns and callosities[ICD10: L84] Kat Yeung MD, [facility] CPT- 4: 67459 06/29/2017 ([id number]) Miscellaneou s no charge Diagnosis: Cough[ICD10: R05] Diagnosis: Other allergic rhinitis[ICD10: J30.89] Diagnosis: Acute bronchitis, unspecified[ICD10: J20.9] Kat Yeung MD, [facility] CPT-4: 14344 05/01/2017 22153 EST. PATIENT, LEVEL IV Diagnosis: Cough[ICD10: R05] Diagnosis: Other acute sinusitis[ICD10: J01.80] Diagnosis: Other allergic rhinitis[ICD10: J30.89] Fay Yeung MD, [facility] CPT-4: 76081 04/24/2017 45923 EST. PATIENT, LEVEL III Diagnosis: Rash and other nonspecific skin eruption[ICD10: R21] Fay Yeung MD, [facility] CPT-4: 81670 03/11/2017 ([id number]) 20671 EST. P ATIENT, LEVEL IV Diagnosis: Essential (primary) hypertension[ICD10: I10] Diagnosis: Mixed hyperlipidemia[ICD10: E78.2] Evelyn Yeung MD, [facility] CPT- 4: 75889 02/19/2017 ([id number]) 57453 EST. P ATIENT, LEVEL IV Diagnosis: Encounter for screening mammogram for malignant neoplasm of breast[ICD10: Z12.31] Diagnosis: Essential (primary) hypertension[ICD10: I10] Diagnosis: Mixed hyperlipidemia[ICD10: E78.2] Evelyn eYung MD, [facility] CPT- 4: 54883 10/16/2016 ([id number]) 24206 EST. P ATIENT, LEVEL IV Diagnosis: Essential (primary) hypertension[ICD10: I10] Diagnosis: Primary central sleep apnea[ICD10: G47.31] Diagnosis: Low back pain[ICD10: M54.5] Evelyn Yeung MD, [facility] CPT-4: 30404 06/19/2016 ([id number]) 97547 EST. P ATIENT, LEVEL III Diagnosis: Pain in left shoulder[ICD10: M25.512] Diagnosis: Pain in left upper arm[ICD10: M79.622] Kat Yeung MD, [facility] CPT-4: 29386 03/13/2016 ([id number]) 98360 EST. P ATIENT, LEVEL III Diagnosis: Essential (primary) hypertension[ICD10: I10] Diagnosis: Pain in left shoulder[ICD10: M25.512] Kat Yeung MD, [facility] CPT-4: 26429 02/22/2016 ([id number]) 91824 EST. P ATIENT, LEVEL III Diagnosis: Orthostatic hypotension[ICD10: I95.1] Evelyn Yeung MD, [facility] CPT-4: 00639 12/18/2015 ([id number]) 88133 EST. P ATIENT, LEVEL III Diagnosis: Essential (primary) hypertension[ICD10: I10] Diagnosis: Dysuria[ICD10: R30.0] Diagnosis: VACCIN FOR INFLUENZA[ICD10: Z23] Evelyn Yeung MD, [facility] CPT-4: 43848 11/13/2015 ([id number]) Miscellaneou s no charge Diagnosis: Essential (primary) hypertension[ICD10: I10] Kat Yeung MD, [facility] CPT-4: 84405 07/23/2015 ([id number]) 60170 EST. P ATIENT, LEVEL III Diagnosis: Essential (primary) hypertension[ICD10: I10] Evelyn Yeung MD, C CPT-4: 70293 07/10/2015 ([id number]) 92237 EST. P ATIENT, LEVEL IV Diagnosis: Essential (primary) hypertension[ICD10: I10] Diagnosis: Primary central sleep apnea[ICD10: G47.31] Diagnosis: Anemia, unspecified[ICD10: D64.9] Evelyn Yeung MD, [facility] CPT-4: 83543 06/05/2015 ([id number]) 05531 EST. P ATIENT, LEVEL III Diagnosis: Essential (primary) hypertension[ICD10: I10] Evelyn Yeung MD[facility] CPT-4: 21980 05/01/2015 76189 EST. PATIENT, LEVEL III Diagnosis: Pain in right knee[ICD10: M25.561] Diagnosis: Essential (primary) hypertension[ICD10: I10] Diagnosis: Encounter for follow-up examination after completed treatment for conditions other than malignant neoplasm[ICD10: Z09] Fay Yeung MD, [facility] CPT-4: 05472 04/09/2015 ([id number]) 73211 EST. P ATIENT, LEVEL IV Diagnosis: Essential (primary) hypertension[ICD10: I10] Diagnosis: Pain in right knee[ICD10: M25.561] Evelyn Yeung MD, [facility] CPT- 4: 71697 03/26/2015 ([id number]) 34321 EST. P ATIENT, LEVEL III Diagnosis: Left upper quadrant pain[ICD10: R10.12] Diagnosis: Lower abdominal pain, unspecified[ICD10: R10.30] Diagnosis: Recurrent oral aphthae[ICD10: K12.0] Evelyn Yeung MD, [facility] CPT-4: 36158 11/17/2014 ([id number]) 77347 EST. P ATIENT, LEVEL III Diagnosis: Left groin pain[ICD9: 789.09] Evelyn Yeung MD, [facility] CPT-4: 39317 10/31/2014 ([id number]) 44191 EST. P ATIENT, LEVEL IV Diagnosis: ESSENTIAL HYPERTENSION[ICD9: 401.9] Diagnosis: HYPERLIPIDEMIA[ICD9: 272.4] Evelyn Yeung MD, [facility] CPT-4: 99179 09/28/2014 ([id number]) 43260 EST. P ATIENT, LEVEL III Diagnosis: CELLULITIS OF FACE[ICD9: 682.0] Tatiana Yeung MD, [facility] CPT-4: 76734 08/31/2014 ([id number]) 76031 EST. P ATIENT, LEVEL IV Diagnosis: ESSENTIAL HYPERTENSION[ICD9: 401.9] Diagnosis: Hyperlipidemia[ICD9: 272.4] Diagnosis: Reyes's cyst of knee[ICD9: 727.51] Evelyn Yeung MD, [facility] CPT- 4: 92666 05/29/2014 ([id number]) 59865 EST. P ATIENT, LEVEL III Diagnosis: ESSENTIAL HYPERTENSION[ICD9: 401.9] Diagnosis: HYPERLIPIDEMIA[ICD9: 272.4] Evelyn Yeung MD, [facility] CPT-4: 51978 11/29/2013 ([id number]) 21526 EST. P ATIENT, LEVEL III Diagnosis: CELLULITIS OF FACE[ICD9: 682.0] [facility] CPT-4: 49032 10/04/2013 ([id number]) 41131 EST. P ATIENT, LEVEL IV Diagnosis: ESSENTIAL HYPERTENSION[SNOMED: 74198958] Diagnosis: HYPERLIPIDEMIA[ICD9: 272.4] [facility] CPT-4: 57176 05/31/2013 ([id number]) 96270 EST. P ATIENT, LEVEL III Diagnosis: ESSENTIAL HYPERTENSION[SNOMED: 70686346] Diagnosis: ABN FINDINGS NEC[ICD9: 796.9] Evelyn Yeung MD, [facility] CPT-4: 15951 11/30/2012 ([id number]) 15832 EST. P ATIENT, LEVEL IV Diagnosis: ESSENTIAL HYPERTENSION[SNOMED: 15415410] Diagnosis: HYPERLIPIDEMIA[ICD9: 272.4] Diagnosis: Abnormal Pap smear[ICD9: 796.9] Evelyn Yeung MD, [facility] CPT-4: 33668 05/31/2012 ([id number]) 53208 EST. P ATIENT, LEVEL III Diagnosis: Abnormal Pap smear[ICD9: 796.9] Diagnosis: ESSENTIAL HYPERTENSION[SNOMED: 66738344] Evleyn Yeung MD, C CPT-4: 27230 11/25/2011 ([id number]) 01273 EST. 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 P ATIENT, LEVEL IV Diagnosis: ESSENTIAL HYPERTENSION[SNOMED: 07088288] Diagnosis: Hyperlipidemia[ICD9: 272.4] Diagnosis: Annual physical exam[ICD9: V70.0] Evelyn Yeung MD, [facility] CPT-4: 93890 04/14/2011 26010 EST. PATIENT, LEVEL III Diagnosis: ESSENTIAL HYPERTENSION[SNOMED: 23311563] Diagnosis: Dyspareunia, female[ICD9: 625.0] Evelyn Yeung MD, [facility] CPT-4: 91475 10/14/2010 Plan of Care Planned Activity Notes C odes Status Date Visit Plan: URI - Pt advised to [...] [phone] ([facility] Complex 07/08/2018 Patient Education: Patient [...] cpap. 02/11/2018 App[facility]ment: [phone] (15 min) Moderate 02/11/2018 Patient Education: Patient [...] no improvement 10/23/2017 Appointment: Fay Marie WPtel: [facility] (15 min) Moderate 10/23/2017 Patient Education: [...] to assure normal liver response to medications. [place] on 4th toe right foot lateral surface - removed with scalpel. 08/13/2017 Appointment: Evelyn Yeung WPtel: [facility] (15 min) Moderate 08/13/2017 Patient Education: Patient Medication Summary Completed 08/13/2017 Visit Plan: UQM-tmcqzheoil-ir goldberg es Callus right toe -healed-no further treatment indicated 07/16/2017 Appointment: Kat Mitchell WPtel: [phone] (15 min) Moderate 07/16/2017 Patient Education: Patient Medication Summary Completed 07/16/2017 Appointment: Kat Mitchell WPtel: [phone] (15 min) Moderate 07/14/2017 Visit Plan: Callus-right 4th toe-de brided today in the office-instructed patient on wound care and to call if symptoms do not resolve or if any worse-patient verbalized understanding of plan. 06/29/2017 Appointment: Kat Mitchell WPtel: [phone] (15 min) Moderate 06/29/2017 Patient Education: Patient Medication Summary Completed 06/29/2017 Visit Plan: Bronchitis-cough Discus sed natural and expected course of this diagnosis and need to alert me if symptoms do not follow expected course, or if any worse. RX sent to patient's pharmacy. 05/01/2017 Appointment: Kat Mitchell WPtel: [phone] (10 min) Simple 05/01/2017 Patient Education: [...] allergy spray. 04/24/2017 Appointment: Fay Marie WPtel: [facility] (15 min) Moderate 04/24/2017 Patient Education: Patient [...] warmth, discharge. 03/11/2017 Appointment: Fay Marie WPtel: [facility] ([facility] min[facility] Complex 03/11/2017 Patient [...] to medications. 02/19/2017 Appointment: Evelyn Yeung WPtel: [phone] [facility] (15 min) Moderate 02/19/2017 Patient Education: Patient [...] to medications. 10/16/2016 Appointment: Evelyn Yeung WPtel: [phone] [facility] (15 min) Moderate 10/16/2016 Patient Education: Patient [...] monitor symptoms. 06/19/2016 Appointment: Evelyn Yeung WPtel: [phone] [facility] (15 min) Moderate 06/19/2016 Patient Education: Patient Medication Summary Completed 06/19/2016 Patient Education: Obesity Completed 06/19/2016 Visit Plan: Left shoulder pain-adriana ent has done rest, ice, and anti inflammatories-shoulder pain persists and causing weakness in left arm- will xray shoulder/humerus and proceed with MRI if indicated-patient verbalized understanding of plan. 03/13/2016 Appointment: Kat Mitchell WPtel: [phone] (15 min) Moderate 03/13/2016 Appointment: [facility]Ptel[phone] [facility] [place] (15 min) Moderate 03/13/2016 Patient Education: [...] at home. 02/22/2016 Appointment: [facility]el[phone] [phone] [place] (15 min) Moderate 02/22/2016 Patient Education: Patient Medication Summary Completed 02/22/2016 Patient Education: Obesity Completed 02/22/2016 App[facility]ment: [facility]el[phone] [phone] [place] (30 min) Complex 02/06/2016 Visit Plan: HYPOTENSION - RECOMMEND ED PT TO DECREASE THE LISIONPRIL TO 20MG ONE TIME DAILY. 12/18/2015 Appointment: [facility]Ptel[facility] [phone] [facility] (15 min) Moderate 12/18/2015 Patient Education: Patient [...] at home. 11/13/2015 Appointment: [facility]Ptel[facility] [phone] [facility] (15 min) Moderate 11/13/2015 Patient Education: Patient [...] care surrogate. 10/10/2015 Appointment: [facility] Mitchell [facility]Ptel: [phone] [phone] [place] (30 min) Complex 10/10/2015 Patient Education: Patient [...] at home. 07/10/2015 Appointment: Ev[facility]Ptel: [phone] [facility] (15 min) Moderate 07/10/2015 Patient Education: Patient [...] cpap 06/05/2015 Appointment: Ev[facility]Ptel: [phone] [facility] [place] (15 min) Moderate 06/05/2015 Patient Education: [...] Completed 04/09/2015 Appointment: Ev[facility]Ptel[facility] [phone] [facility] (15 min) Moderate 03/29/2015 Visit Plan: Hypertension [...] normal liver response to medications. 09/28/2014 Appointment: vEelyn Yeung WPtel: [phone] [facility] [place] Follow up 09/28/2014 Patient Education: Patient Medication Summary Completed 09/28/2014 Patient Education: Hypertension Completed 09/28/2014 Care Plan: COMPLETE CBC AUTOMATED LOINC : 67589-2 Ordered 09/28/2014 Visit Plan: Cellulitis - RX [...] rest. 05/29/2014 Appointment: Ev[facility]Ptel: [phone] [facility] Follow up 05/29/2014 Patient Education: Patient Medication [...] medications. 11/29/2013 Appointment: Evelyn Yeung WPtel: [phone] [facility] Follow up 11/29/2013 Patient Education: Patient Medication Summary Completed 11/29/2013 Patient Education: Hypertension Completed 11/29/2013 Care Plan: COMPLETE CBC AUTOMATED LOINC : 95047-1 Ordered 11/29/2013 Visit Plan: Cellulitis - continue w ith oral antibiotics as previously directed, return to clinic as previously directed, call for acute change in symptoms, worsening redness, warmth, discharge. 10/04/2013 Appointment: Evelyn Yeung WPtel: [phone] [facility] [facility] 10/04/2013 Patient Education: Patient Medication Summary Completed [...] months 05/31/2013 Appointment: Ev[facility]Ptel: [phone] [facility] Follow up 05/31/2013 Patient Education: Patient Medication [...] years. 11/30/2012 Appointment: Ev[facility] WPtel: [phone] [facility] [place] Pap Only 11/30/2012 Patient Education: Patient [...] 2011. 05/31/2012 Appointment: Ev[facility] WPtel: [phone] [facility] [place] Pap Only 05/31/2012 Patient Education: Patient [...] home. 11/25/2011 Appointment: Ev[facility] WPtel: [phone] [facility] [place] Pap Only 11/25/2011 Patient Education: Patient Medication Summary Completed 11/25/2011 Patient Education: High Blood Pressure: Essential Hypertension Completed 11/25/2011 Appointment: Evelyn Yeung WPtel: [phone] [facility] [place] Pap Only 09/01/2011 Appointment: Ev[facility] WPtel: [phone] [facility] [place] Pap Only 08/26/2011 Visit Plan: Hypertension [...] hot flashes. 08/21/2011 Appointment: Ev[facility] WPtel: [phone] [facility] [place] Pap Only 08/21/2011 Patient Education: Patient Medication Summary Completed 08/21/2011 Patient Education: High Blood Pressure: Essential Hypertension Completed 08/21/2011 Appointment: Ev[facility] WPtel: [phone] [facility] Other 04/16/2011 Visit Plan: Hypertension - well [...] otherwise, RTC yearly or prn. 04/14/2011 Appointment: Alonso Yeungy WPtel: [phone] [facility] [place] Pap Only 04/14/2011 Patient Education: Patient Medication Summary Completed 04/14/2011 Patient Education: High Blood Pressure: Essential Hypertension Completed 04/14/2011 Appointment: AnjanaAlonsoy WPtel: [phone] [facility] [place] Injection 12/19/2010 Patient Education: Patient Medication Summary Completed 12/19/2010 Visit Plan: Hypertension - well con trolled - continue with current medications, continue with no added salt diet. Pt has been encouraged to exercise daily. The pt has been advised to call the office if there are any acute concerns about change in blood pressure readings at home. Pain with intercourse- advised KY jelly to decrease discomfort. 10/14/2010 Appointment: Evelyn Yeung WPtel: [phone] [facility] Other 10/14/2010 Patient Education: Patient Medication Summary [...] - pt doing well with the cpap. ALEVE 2 TABS TWICE D AILY WITH [...] worse. RX sent to patient's pharmacy. . Hypertension - wel l controlled - [...] in blood pressure readings at home. . Abnormal pap- repe at pap completed, [...] to assure normal liver response to medications. xray . Left shoulder pain-patient has done [...] to notify clinic if no improvement . URI - Pt advised t o [...] in blood pressure readings at home. . Total Right knee - pt is [...] notify clinic with any questions or concerns. Take probiotic while on antibiotic. If you develop ulcerations on your face, ANY burning, itching, pain, call office IMMEDIATELY and return immediately. . Cellulitis - RX to pt's pharmacy. Ret urn to clinic or call for acute change in symptoms, worsening redness, warmth, discharge. ACYCLOVIR 800MG TID X 10 DAYS ABDOMINAL ULTRASOUND . Oral aphthae-start acyclovir Abdominal pain-LUQ and LLQ-schedule abdominal ultrasound . EHN-kejimbcxzy-sj changes Callus right toe -healed-no further treatment [...] to assure normal liver response to medications. [place] on 4th toe right foot lateral surface - removed with scalpel. . Hypertension - wel l controlled - [...]
--- OUTSIDE RECORDS SUMMARY | 2019-07-08 08:12 | XMS REPORT | CCD ---
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 10/14/[address]: 804264201 Never smoker 10/14/[address]: [id number] Never drinks alcohol 10/14/2010 Has the patient [...] 40 mg/mL wander pension for injection RxNorm: 7617204 1 Milliliter(s) Inj 07/08/2018 07/08/2018 In active Zithromax Z-Doroteo 250 mg tablet RxNorm: 878057 1 Tablet(s) PO UD 07/08/2018 No Stop Date Active metoprolol succinate ER 50 mg tablet,extended release 24 hr RxNorm: 575411 Tablet(s) TAKE 1 TABLET TWICE DAILY 05/27/2018 06/25/2018 Inactive metoprolol succinate ER 50 mg tablet,extended release 24 hr RxNorm: 991151 Tablet(s) TAKE 1 TABLET TWICE DAILY 05/25/2018 05/26/2018 Inactive potassium chloride E R 10 mEq capsule,extended release RxNorm: 911219 1 Capsule(s) PO TIW TAKE 1 CAPSULE THREE TIMES WEEKLY 04/23/2018 04/17/2019 Active three times weekly- sent on 04/21/18- requested again 04/23/18 potassium chloride E R 10 mEq capsule,extended release RxNorm: 888342 1 Capsule(s) PO TIW TAKE 1 CAPSULE THREE TIMES WEEKLY 04/21/2018 04/22/2018 Inactive thre e times weekly chlorthalidone 25 mg tablet RxNorm: 189766 Tablet(s) TAKE 1 TABL ET EVERY MORNING 03/26/2018 03/20/2019 Ac tive simvastatin 20 mg ta blet RxNorm: 447568 Tablet(s) TAKE 1 TABL ET EVERY NIGHT 03/26/2018 03/20/2019 Ac tive lisinopril 20 mg tablet RxNorm: 576137 1 Tablet(s) PO daily 02/11/2018 05/06/2019 Active this is an update on her RX - she is onl y taking 20mg daily -please delete other rx's lisinopril 20 mg tablet RxNorm: 322193 1 Tablet(s) PO daily 11/20/2017 02/10/2018 Inactive lisinopril 40 mg tablet RxNorm: 978157 Tablet(s) TAKE 1 TABLET EVERY DAY 11/16/2017 11/19/2017 In active metoprolol succinate ER 50 mg tablet,extended release 24 hr RxNorm: 618979 Tablet(s) TAKE 1 TABLET TWICE DAILY 06/05/2017 05/24/2018 Inactive metoprolol succinate ER 50 mg tablet,extended release 24 hr RxNorm: 832435 Tablet(s) TAKE 1 TABLET TWICE DAILY 06/05/2017 06/04/2017 Inactive potassium chloride E R 10 mEq capsule,extended release RxNorm: 458585 1 Capsule(s) PO TIW TAKE 1 CAPSULE THREE TIMES WEEKLY 05/07/2017 04/20/2018 Inactive thre e times weekly potassium chloride E R 10 mEq capsule,extended release RxNorm: 878108 1 Capsule(s) PO daily TAKE 1 CAPSULE THREE TIMES WEEKLY 05/05/2017 05/06/2017 Inactive metoprolol succinate ER 50 mg tablet,extended release 24 hr RxNorm: 551298 Tablet(s) TAKE 1 TABLET TWICE DAILY 05/04/2017 06/04/2017 Inactive Phenergan with Codei ne Syrup RxNorm: 5-10 Milliliter(s) PO QID a s needed cough 05/01/2017 No Stop Date Active cefdinir 300 mg capsule RxNorm: 926409 1 Capsule(s) PO BID 05/01/2017 05/07/2017 Inactive Zithromax Z-Doroteo 250 mg tablet RxNorm: 043562 1 Tablet(s) PO UD 04/24/2017 06/22/2017 Inactive Phenergan with Codei ne Syrup RxNorm: 5-10 Milliliter(s) PO QID a s needed cough 04/24/2017 04/30/2017 In active prednisone 20 mg tablet RxNorm: 775363 2 Tablet(s) PO daily 04/24/2017 04/28/2017 Inactive chlorthalidone 25 mg tablet RxNorm: 449011 Tablet(s) TAKE 1 TABL ET EVERY MORNING 04/13/2017 03/25/2018 In active simvastatin 20 mg ta blet RxNorm: 299166 Tablet(s) TAKE 1 TABL ET EVERY NIGHT 04/08/2017 03/25/2018 In active Kenalog 40 mg/mL wander pension for injection RxNorm: 5468477 1 Milliliter(s) Inj 03/11/2017 03/11/2017 In active prednisone 20 mg tablet RxNorm: 249612 2 Tablet(s) PO daily 03/11/2017 03/15/2017 Inactive simvastatin 20 mg ta blet RxNorm: 907327 TAKE 1 TABLET EVERY DAY 01/02/2017 04/07/2017 Inactive lisinopril 40 mg tablet RxNorm: 554588 TAKE 1 TABLET EVERY DAY 11/24/2016 08/20/2017 Inactive metoprolol succinate ER 50 mg tablet,extended release 24 hr RxNorm: 931918 TAKE 1 TABLET TWICE DAILY 11/24/2016 05/03/2017 Inactive fluconazole 150 mg t ablet RxNorm: 484819 1 Tablet(s) PO daily prn yeast infection symptoms 10/16/2016 10/25/2016 Inactive potassium chloride E R 10 mEq capsule,extended release RxNorm: 283068 TAKE 1 CAPSULE THREE TIMES WEEKLY 08/12/2016 05/04/2017 Inactive chlorthalidone 25 mg tablet RxNorm: 158789 TAKE 1 TABLET EVERY M ORNING 06/30/2016 04/12/2017 In active simvastatin 20 mg ta blet RxNorm: 074641 TAKE 1 TABLET EVERY DAY 01/21/2016 01/01/2017 Inactive lisinopril 40 mg tablet RxNorm: 894725 1/2 Tablet(s) daily 12/18/2015 11/23/2016 Inactive metoprolol succinate ER 50 mg tablet,extended release 24 hr RxNorm: 610377 Tablet(s) TAKE 1 TABLET TWICE DAILY 12/13/2015 11/23/2016 Inactive metoprolol succinate ER 50 mg tablet,extended release 24 hr RxNorm: 643457 Tablet(s) TAKE 1 TABLET TWICE DAILY 12/13/2015 12/12/2015 Inactive metoprolol succinate ER 50 mg tablet,extended release 24 hr RxNorm: 288926 Tablet(s) TAKE 1 TABLET TWICE DAILY 11/13/2015 12/12/2015 Inactive Keflex 500 mg capsule RxNorm: 762840 1 Capsule(s) PO TID 11/13/2015 11/19/2015 Inactive chlorthalidone 25 mg tablet RxNorm: 109012 1 Tablet(s) PO QAM 08/08/2015 06/29/2016 Inactive potassium chloride E R 10 mEq capsule,extended release RxNorm: 301933 1 Capsule(s) PO TIW 08/08/2015 08/01/2016 Inactive potassium chloride E R 10 mEq capsule,extended release RxNorm: 704068 1 Capsule(s) PO TIW 06/20/2015 08/07/2015 Inactive lisinopril 40 mg tablet RxNorm: 351243 TAKE 1 TABLET EVERY DAY 2015 12/17/2015 Inactive potassium chloride E R 10 mEq capsule,extended release RxNorm: 119153 1 Capsule(s) PO TIW 2015 06/19/2015 Inactive chlorthalidone 25 mg tablet RxNorm: 802387 1 Tablet(s) PO QAM 06/05/2015 08/07/2015 Inactive potassium chloride E R 10 mEq capsule,extended release RxNorm: 647870 1 Capsule(s) PO TIW 06/05/2015 06/17/2015 Inactive lisinopril 40 mg tablet RxNorm: 617169 1/2 Tablet(s) PO BID 05/07/2015 06/17/2015 Inactive amoxicillin 500 mg t ablet RxNorm: 877291 4 Tablet(s) PO one ho ur prior to dental appts UD 05/07/2015 10/08/2015 Inactive amoxicillin 500 mg t ablet RxNorm: 253682 4 Tablet(s) PO one ho ur prior to dental appts UD 05/04/2015 05/06/2015 Inactive lisinopril 40 mg tablet RxNorm: 662672 1/2 Tablet(s) PO BID 05/04/2015 05/06/2015 Inactive amoxicillin 500 mg t ablet RxNorm: 037863 4 Tablet(s) PO one ho ur prior to dental appts UD 05/01/2015 05/03/2015 Inactive lisinopril 40 mg tablet RxNorm: 460970 1/2 Tablet(s) PO BID TAKE 1 TABLET DAILY 05/01/2015 05/03/2015 In active metoprolol succinate ER 50 mg tablet,extended release 24 hr RxNorm: 712252 TAKE 1 AND 1/2 TABLETS TWICE DAILY 04/16/2015 11/12/2015 Inactive simvastatin 20 mg ta blet RxNorm: 325521 TAKE 1 TABLET EVERY DAY 04/16/2015 01/10/2016 Inactive acyclovir 800 mg tablet RxNorm: 044757 1 Tablet(s) PO TID 11/17/2014 11/26/2014 Inactive acyclovir 400 mg tablet RxNorm: 987989 2 Tablet(s) PO QID 10/06/2014 10/05/2014 Inactive acyclovir 400 mg tablet RxNorm: 841541 2 Tablet(s) PO QID 10/06/2014 10/15/2014 Inactive cephalexin 500 mg ca psule RxNorm: 562987 1 Capsule(s) PO TID 08/31/2014 09/04/2014 Inactive Bactroban 2 % topica l ointment RxNorm: 612139 1 Application TOP BID 08/31/2014 10/08/2015 Inactive Bactroban 2 % topica l ointment RxNorm: 320015 1 Application TOP BID 08/31/2014 09/04/2014 Inactive simvastatin 20 mg ta blet RxNorm: 334270 Tablet(s) TAKE 1 TABL ET DAILY 03/31/2014 04/15/2015 In active lisinopril 40 mg tablet RxNorm: 383903 Tablet(s) TAKE 1 TABLET DAILY 03/31/2014 04/30/2015 In active metoprolol succinate ER 50 mg tablet,extended release 24 hr RxNorm: 401695 Tablet(s) TAKE ONE AND ONE-HALF TABLETS (75 MG) TWICE A DAY 03/09/2014 04/15/2015 Inactive Prio r authorization approved for this med until 03-09-2015 metoprolol succinate ER 50 mg tablet,extended release 24 hr RxNorm: 438377 Tablet(s) TAKE ONE AND ONE-HALF TABLETS (75 MG) TWICE A DAY 03/06/2014 03/08/2014 Inactive simvastatin 20 mg ta blet RxNorm: 885220 TAKE 1 TABLET DAILY 01/24/2014 03/30/2014 Inactive lisinopril 40 mg tablet RxNorm: 219574 TAKE 1 TABLET DAILY 01/24/2014 03/30/2014 Inactive simvastatin 20 mg ta blet RxNorm: 496967 TAKE 1 TABLET DAILY 10/24/2013 01/23/2014 Inactive cephalexin 500 mg ca psule RxNorm: 587164 1 Capsule(s) PO TID 10/04/2013 10/08/2013 Inactive metoprolol succinate ER 50 mg tablet,extended release 24 hr RxNorm: 682519 TAKE ONE AND ONE-HALF TABLETS (75 MG) TWICE A DAY 09/16/2013 03/05/2014 Inactive simvastatin 20 mg ta blet RxNorm: 867020 Tablet(s) PO TAKE 1 T ABLET DAILY 04/21/2013 10/23/2013 In active metoprolol succinate ER 50 mg tablet,extended release 24 hr RxNorm: 285574 Tablet(s) PO TAKE ONE AND ONE-HALF TABLETS (75 MG) TWICE A DAY 03/24/2013 09/15/2013 Inactive metoprolol succinate ER 50 mg tablet,extended release 24 hr RxNorm: 698270 Tablet(s) PO TAKE ONE AND ONE-HALF TABLETS (75 MG) TWICE A DAY 12/20/2012 03/23/2013 Inactive lisinopril 40 mg tablet RxNorm: 458125 Tablet(s) PO TAKE 1 TABLET DAILY 11/18/2012 01/23/2014 In active simvastatin 20 mg ta blet RxNorm: 271122 Tablet(s) PO TAKE 1 T ABLET DAILY 08/06/2012 04/20/2013 In active metoprolol succinate ER 50 mg tablet,extended release 24 hr RxNorm: 770387 Tablet(s) PO TAKE ONE AND ONE-HALF TABLETS (75 MG) TWICE A DAY 06/15/2012 12/19/2012 Inactive metoprolol succinate ER 50 mg tablet,extended release 24 hr RxNorm: 213877 Tablet(s) PO TAKE ONE AND ONE-HALF TABLETS (75 MG) TWICE A DAY 03/01/2012 06/14/2012 Inactive Diflucan 150 mg tablet RxNorm: 133876 1 Tablet(s) PO daily 12/03/2011 12/02/2011 Inactive Diflucan 150 mg tablet RxNorm: 094279 1 Tablet(s) PO daily 12/03/2011 12/07/2011 Inactive Diflucan 150 mg tablet RxNorm: 956156 1 Tablet(s) PO daily 12/03/2011 12/02/2011 Inactive Influenza Virus Vacc ine 0.5 mL RxNorm: IM 11/25/2011 11/25/2011 Inactive metoprolol succinate ER 50 mg tablet,extended release 24 hr RxNorm: 011794 Tablet(s) PO 09/16/2011 02/29/2012 Inactive TAKE ONE AND ONE-HALF TABLETS (75 MG) TW ICE A DAY lisinopril 40 mg tablet RxNorm: 697135 Tablet(s) PO 08/25/2011 11/17/2012 Inactive TAKE 1 TABLET DAILY simvastatin 20 mg ta blet RxNorm: 529858 Tablet(s) PO 07/31/2011 08/05/2012 Inactive TAKE 1 TABLET DAILY Influenza Virus Vacc ine 0.5 mL RxNorm: 1/2 Milliliter(s) IM 12/19/2010 12/19/2010 Inactive metoprolol succinate ER 50 mg tablet,extended release 24 hr RxNorm: 637302 Tablet(s) PO 12/02/2010 09/15/2011 Inactive TAKE ONE AND ONE-HALF TABLETS (75 MG) TW ICE A DAY Calcium 600 + D(3) 6 00 mg (1,500 mg)-400 unit Tab RxNorm: 345716 1 Tablet(s) PO daily No Start Date Active Tylenol PM Extra Str ength 25 mg-500 mg Tab RxNorm: 2911782 1 Tablet(s) PO QHS No Start Date Active Probiotic & Acidophi lesa oral RxNorm: oral No Start D ate Active Fish Oil 1,200 mg-14 4 mg-216 mg Cap RxNorm: 1 Capsule(s) PO BID No Start Date Active 1400mg multivitamin Cap RxNorm: 1 Capsule(s) PO daily No Start Date Active Aspirin Childrens 81 mg Chewable Tab RxNorm: 456827 1 Tablet(s) PO daily No Start Date Active premarin 0.5% Vagina l cream RxNorm: [address] art Date 08/30/2014 Inactive simvastatin 20 mg Tab RxNorm: 357978 1 Tablet(s) PO daily No Start Date 07/30/2011 Inactive lisinopril 40 mg Tab RxNorm: 569334 1 Tablet(s) PO daily No Start Date 08/24/2011 Inactive Fish Oil 340 mg-1,00 0 mg Cap RxNorm: 1 Capsule(s) PO TID No Start Date 04/14/2011 Inactive [place] 20 mg Tab RxNorm: 375522 1 Tablet(s) PO daily No Start Date 04/14/2011 Inactive metoprolol succinate ER 50 mg 24 hr Tab RxNorm: 319358 1 &1/2 Tablet(s) PO d aily No Start Date 12/01/2010 Inactive Medication Administered Medication Codes Instruc tions Start Date Status Kenalog 40 mg/mL suspension for injection RxNorm: 0383226 1Milliliter 07/08/2018 A ctive Kenalog 40 mg/mL suspension for injection RxNorm: 7228969 1Milliliter 03/11/2017 N o longer Active Influenza [...] 30.2 pg 10/17/2016 Cbc With Differential Ord2 [place]% 6.3 % 10/17/2016 Cbc With Differential Ord2 [...] 1.37 K/ul 10/17/2016 Cbc With Differential Ord2 [place] ABS# 0.3 K/ul 10/17/2016 Cbc With Differential Ord2 Eos ABS# 0.2 K/ul 10/17/2016 Cbc With Differential Ord2 Baso ABS# 0.0 K/ul 10/17/2016 Comp Metabolic Shs714 NA 141 mEq/L 10/17/2016 Comp Metabolic Hgy310 K 3.9 mEq/L 10/17/2016 Comp Metabolic Vnw098 CL 105 mEq/L 10/17/2016 Comp Metabolic Lxs467 CO2 26.0 mEq/L 10/17/2016 Comp Metabolic Lfv844 AN ION GAP 14 10/17/2016 Comp Metabolic Yfv459 GL UCOSE 100 mg/dL 10/17/2016 Comp Metabolic Kpr301 Cr eat 1.0 mg/dL 10/17/2016 Comp Metabolic Tkg106 eG FR 61 ml/min/1.73m2 10/17 Comp Metabolic Btp382 BUN 17 mg/dL 10/17/2016 Comp Metabolic Sxd160 B/ C Ratio 17.7 Ratio 10/17/2016 Comp Metabolic Uqw286 CA LCIUM 9.8 mg/dL 10/17/2016 Comp Metabolic Lzk593 AL K PHOS 44 U/L 10/17/2016 Comp Metabolic Hiq824 T(SGOT) 15 U/L 10/17/2016 Comp Metabolic Amn249 AL T(SGPT) 16 U/L 10/17/2016 Comp Metabolic Ygs570 BI LI T 0.5 mg/dL 10/17/2016 Comp Metabolic Zol814 AL BUMIN 4.3 g/dL 10/17/2016 Comp Metabolic Onc537 TP RO 6.5 g/dL 10/17/2016 Comp Metabolic Bqq081 GL OB 2.3 g/dL 10/17/2016 Comp Metabolic Nzt120 A/ G Ratio 1.9 Ratio 10/17/2016 Comp Metabolic Xbk728 Os mo 283 mOsmo 10/17/2016 Lipid Ord30 CHOL 134 mg/dL 10/17/2016 Lipid Ord30 HDL 48.0 mg/dl 10/17/2016 Lipid Ord30 TRIG 123 mg/dL 10/17/2016 Lipid Ord30 LDL 61 mg/dL 10/17/2016 Lipid Ord30 C/HDL 2.8 Ratio 10/17/2016 Comp Metabolic Krx768 NA 140 mEq/L 02/28/2016 Comp Metabolic Tjk915 K 3.9 mEq/L 02/28/2016 Comp Metabolic Lqy188 CL 102 mEq/L 02/28/2016 Comp Metabolic Yko319 CO2 31.0 mEq/L 02/28/2016 Comp Metabolic Rli229 AN ION GAP 11 02/28/2016 Comp Metabolic Mgq793 GL UCOSE 87 mg/dL 02/28/2016 Comp Metabolic Pqq975 Cr eat 1.2 mg/dL 02/28/2016 Comp Metabolic Knm518 eG FR 45 ml/min/1.73m2 02/27 Comp Metabolic Frn961 BUN 23 mg/dL 02/28/2016 Comp Metabolic Jue223 B/ C Ratio 18.5 Ratio 02/28/2016 Comp Metabolic Bvi883 CA LCIUM 9.2 mg/dL 02/28/2016 Comp Metabolic Ati467 AL K PHOS 53 U/L 02/28/2016 Comp Metabolic Pxk695 T(SGOT) 16 U/L 02/28/2016 Comp Metabolic Vgl502 AL T(SGPT) 17 U/L 02/28/2016 Comp Metabolic Qqv196 BI LI T 0.5 mg/dL 02/28/2016 Comp Metabolic Zsn409 AL BUMIN 4.2 g/dL 02/28/2016 Comp Metabolic Ebs095 TP RO 6.7 g/dL 02/28/2016 Comp Metabolic Qjt361 GL OB 2.5 g/dL 02/28/2016 Comp Metabolic Xiu780 A/ G Ratio 1.7 Ratio 02/28/2016 Comp Metabolic Vtr493 Os mo 282 mOsmo 02/28/2016 Cbc With [...] 30.5 pg 02/28/2016 Cbc With Differential Ord2 [place]% 5.6 % 02/28/2016 Cbc With Differential Ord2 [...] 1.21 K/ul 02/28/2016 Cbc With Differential Ord2 [place] ABS# 0.3 K/ul 02/28/2016 Cbc With Differential Ord2 Eos ABS# 0.2 K/ul 02/28/2016 Cbc With Differential Ord2 Baso ABS# 0.0 K/ul 02/28/2016 Lipid Ord30 CHOL 141 mg/dL 02/28/2016 Lipid Ord30 HDL 48.0 mg/dl 02/28/2016 Lipid Ord30 TRIG 144 mg/dL 02/28/2016 Lipid Ord30 LDL 64 mg/dL 02/28/2016 Lipid Ord30 C/HDL 2.9 Ratio 02/28/2016 Tsh Ord6 hTSH II 2.22 uIU/mL 02/28/2016 Culture Urine [id number] URI NE CULTURE SEE NOTES 11/15/2015 Urine [...] Ord30 C/HDL 2.7 Ratio 03/19/2015 Comp Metabolic Qgv819 NA 139 mEq/L 03/19/2015 Comp Metabolic Szj650 K 4.0 mEq/L 03/19/2015 Comp Metabolic Lsy813 CL 105 mEq/L 03/19/2015 Comp Metabolic Kgw326 CO2 29.0 mEq/L 03/19/2015 Comp Metabolic Vwm374 AN ION GAP 9 03/19/2015 Comp Metabolic Suk718 GL UCOSE 90 mg/dL 03/19/2015 Comp Metabolic Uxw505 Cr eat 0.8 mg/dL 03/19/2015 Comp Metabolic Pdd716 eG FR 80 ml/min/1.73m2 03/19 Comp Metabolic Isz038 BUN 14 mg/dL 03/19/2015 Comp Metabolic Dei446 B/ C Ratio 18.4 Ratio 03/19/2015 Comp Metabolic Tdo075 CA LCIUM 9.5 mg/dL 03/19/2015 Comp Metabolic Ucp466 AL K PHOS 39 U/L 03/19/2015 Comp Metabolic Wvn814 T(SGOT) 17 U/L 03/19/2015 Comp Metabolic Fug262 AL T(SGPT) 22 U/L 03/19/2015 Comp Metabolic Ybp833 BI LI T 0.5 mg/dL 03/19/2015 Comp Metabolic Qsn056 AL BUMIN 4.2 g/dL 03/19/2015 Comp Metabolic Vav150 TP RO 6.3 g/dL 03/19/2015 Comp Metabolic Wyb817 GL OB 2.1 g/dL 03/19/2015 Comp Metabolic Qkk181 A/ G Ratio 2.0 Ratio 03/19/2015 Comp Metabolic Oqj324 Os mo 278 mOsmo 03/19/2015 Tsh Ord6 [...] 29.9 pg 03/19/2015 Cbc With Differential Ord2 [place]% 5.1 % 03/19/2015 Cbc With Differential Ord2 [...] 1.52 K/ul 03/19/2015 Cbc With Differential Ord2 [place] ABS# 0.2 K/ul 03/19/2015 Cbc With Differential [...] Ord30 C/HDL 3.2 Ratio 09/29/2014 Comp Metabolic Bga840 NA 139 mEq/L 09/29/2014 Comp Metabolic Pbu941 K 4.1 mEq/L 09/29/2014 Comp Metabolic Kej901 CL 104 mEq/L 09/29/2014 Comp Metabolic Aux280 CO2 31.0 mEq/L 09/29/2014 Comp Metabolic Ioo368 AN ION GAP 8 09/29/2014 Comp Metabolic Bxw324 GL UCOSE 96 mg/dL 09/29/2014 Comp Metabolic Syl571 Cr eat 0.8 mg/dL 09/29/2014 Comp Metabolic Uyo790 eG FR 71 ml/min/1.73m2 09/29 Comp Metabolic Ynx099 BUN 13 mg/dL 09/29/2014 Comp Metabolic Ewu173 B/ C Ratio 15.5 Ratio 09/29/2014 Comp Metabolic Uzf995 CA LCIUM 9.5 mg/dL 09/29/2014 Comp Metabolic Djf004 AL K PHOS 42 U/L 09/29/2014 Comp Metabolic Xrl753 T(SGOT) 20 U/L 09/29/2014 Comp Metabolic Mew642 AL T(SGPT) 26 U/L 09/29/2014 Comp Metabolic Ojf371 BI LI T 0.5 mg/dL 09/29/2014 Comp Metabolic Oeb538 AL BUMIN 4.4 g/dL 09/29/2014 Comp Metabolic Ivb999 TP RO 6.5 g/dL 09/29/2014 Comp Metabolic Miy155 GL OB 2.1 g/dL 09/29/2014 Comp Metabolic Vvh238 A/ G Ratio 2.1 Ratio 09/29/2014 Comp Metabolic Qen615 Os mo 278 mOsmo 09/29/2014 Tsh Ord6 [...] CPT-4: J3301 07/08/2018 THER/PROPH/DIAG INJ SC/IM CPT-4: 44508 07/08/2018 FLU VAC NO PRSV 4 VA L 3 YRS+ CPT-4: 95448 10/23/2017 ADMIN INFLUENZA VIRU S VAC CPT-4: G0008 10/23/2017 THER/PROPH/DIAG INJ SC/IM CPT-4: 01276 03/11/2017 TRIAMCINOLONE ACET I [place] NOS CPT-4: J3301 03/11/2017 FLU VAC NO PRSV 4 VA L 3 YRS+ CPT-4: 39907 12/09/2016 ADMIN INFLUENZA VIRU S VAC CPT-4: G0008 12/09/2016 URINALYSIS NONAUTO W /O SCOPE CPT-4: 33917 11/13/2015 IMMUNIZATION ADMIN CPT- 4: 29980 11/13/2015 FLU VACC 4 [place] 3 YRS PLUS IM SNOMED CT: [id number] CPT-4: 71658 11/13/2015 PPPS, SUBSEQ VISIT CPT- 4: G0439 10/10/2015 IMMUNIZATION ADMIN CPT- 4: 97069 11/25/2011 Influenza Virus Vacc ine, Split Virus, >3 Yrs, IM CPT-4: 00915 11/25/2011 ADMIN INFLUENZA VIRU S VAC CPT-4: G0008 12/19/2010 FLULAVAL VACC, 3 YRS & >, IM CPT-4: Q2036 12/19/2010 Vital Signs Date Vital 07/08/2018 Blood Pressure 1: 132/76 Code: 8480-6 BMI: 34.7 Code: 35083-9 Heart Rate 1: 72 bpm Height: 5'3" SpO2: 98% Weight: 196 lbs 02/11/2018 Blood Pressure 1: 130/70 Code: 8480-6 BMI: 35.1 Code: 44378-0 Heart Rate 1: 64 bpm Height: 5'3" SpO2: 95% Weight: 198 lbs 10/23/2017 Blood Pressure 1: 124/66 Code: 8480-6 BMI: 34.7 Code: 93976-9 Heart Rate 1: 67 bpm Height: 5'3" SpO2: 95% Weight: 196 lbs 08/13/2017 Blood Pressure 1: 128/82 Code: 8480-6 BMI: 34.7 Code: 55711-9 Heart Rate 1: 74 bpm Height: 5'3" SpO2: 95% Weight: 196 lbs 07/16/2017 Blood Pressure 1: 126/80 Code: 8480-6 BMI: 34.7 Code: 15970-9 Heart Rate 1: 62 bpm Height: 5'3" SpO2: 96% Weight: 196 lbs 06/29/2017 Blood Pressure 1: 122/70 Code: 8480-6 BMI: 35.1 Code: 36280-5 Heart Rate 1: 74 bpm Height: 5'3" SpO2: 94% Weight: 198 lbs 05/01/2017 Blood Pressure 1: 120/68 Code: 8480-6 BMI: 35.1 Code: 64054-8 Heart Rate 1: 76 bpm Height: 5'3" SpO2: 98% Weight: 198 lbs 04/24/2017 Blood Pressure 1: 142/80 Code: 8480-6 BMI: 35.1 Code: 33849-4 Heart Rate 1: 75 bpm Height: 5'3" SpO2: 98% Weight: 198 lbs 03/11/2017 Blood Pressure 1: 128/74 Code: 8480-6 BMI: 34.9 Code: 17266-0 Heart Rate 1: 68 bpm Height: 5'3" SpO2: 96% Weight: 197 lbs 02/19/2017 Blood Pressure 1: 108/62 Code: 8480-6 BMI: 34.9 Code: 67866-3 Heart Rate 1: 74 bpm Height: 5'3" SpO2: 97% Weight: 197 lbs 10/16/2016 Blood Pressure 1: 130/72 Code: 8480-6 BMI: 34.5 Code: 36340-3 Heart Rate 1: 65 bpm Height: 5'3" SpO2: 978% Weight: 194 lbs 8 oz 06/19/2016 Blood Pressure 1: 134/80 Code: 8480-6 BMI: 32.9 Code: 27294-5 Heart Rate 1: 69 bpm Height: 5'3" SpO2: 98% Weight: 186 lbs 03/13/2016 Blood Pressure 1: 118/74 Code: 8480-6 BMI: 32.4 Code: 82937-9 Heart Rate 1: 71 bpm Height: 5'3" SpO2: 96% Weight: 183 lbs 02/22/2016 Blood Pressure 1: 116/64 Code: 8480-6 BMI: 31.5 Code: 66165-5 Heart Rate 1: 71 bpm Height: 5'3" SpO2: 99% Weight: 178 lbs 12/18/2015 Blood Pressure 1: 94/60 Code: 8480-6 BMI: 31.1 Code: 66435-2 Heart Rate 1: 72 bpm Height: 5'3" SpO2: 99% Weight: 175 lbs 8 oz 11/13/2015 Blood Pressure 1: 104/64 Code: 8480-6 BMI: 32.4 Code: 31433-5 Heart Rate 1: 66 bpm Height: 5'3" SpO2: 97% Weight: 183 lbs 10/10/2015 Blood Pressure 1: 112/67 Code: 8480-6 BMI: 32.6 Code: 53717-9 Heart Rate 1: 78 bpm Height: 5'3" SpO2: 97% Weight: 184 lbs 07/23/2015 Blood Pressure 1: 108/64 Code: 8480-6 Blood Pressure 1: 10464 Code: 8480-6 Heart Rate 1: 70 bpm SpO2: 97% 07/10/2015 Blood Pressure 1: 118/64 Code: 8480-6 BMI: 32.6 Code: 13970-2 Heart Rate 1: 61 bpm Height: 5'3" SpO2: 98% Weight: 184 lbs 06/05/2015 Blood Pressure 1: 164/70 Code: 8480-6 BMI: 32.4 Code: 96322-9 Heart Rate 1: 68 bpm Height: 5'3" SpO2: 97% Weight: 183 lbs 05/01/2015 Blood Pressure 1: 150/78 Code: 8480-6 BMI: 32.4 Code: 80903-1 Heart Rate 1: 87 bpm Height: 5'3" SpO2: 95% Weight: 183 lbs 04/09/2015 Blood Pressure 1: 158/68 Code: 8480-6 BMI: 32.9 Code: 16238-0 Heart Rate 1: 78 bpm Height: 5'3" SpO2: 97% Weight: 186 lbs 03/26/2015 Blood Pressure 1: 140/76 Code: 8480-6 BMI: 33.7 Code: 69040-5 Heart Rate 1: 64 bpm Height: 5'3" SpO2: 98% Weight: 190 lbs 11/17/2014 Blood Pressure 1: 146/80 Code: 8480-6 BMI: 33.5 Code: 39977-9 Heart Rate 1: 60 bpm Height: 5'3" SpO2: 97% Weight: 189 lbs 10/31/2014 Blood Pressure 1: 130/72 Code: 8480-6 BMI: 33.7 Code: 14549-7 Heart Rate 1: 59 bpm Height: 5'3" SpO2: 96% Weight: 190 lbs 09/28/2014 Blood Pressure 1: 130/86 Code: 8480-6 Blood Pressure 1: 130/72 Code: 8480-6 BMI: 33.7 Code: 21248-6 Heart Rate 1: 58 bpm Height: 5'3" SpO2: 97% Weight: 190 lbs 08/31/2014 Blood Pressure 1: 122/84 Code: 8480-6 BMI: 34.0 Code: 89271-4 Height: 5'3" Weight: 192 lbs 05/29/2014 Blood Pressure 1: 120/68 Code: 8480-6 BMI: 33.8 Code: 88316-1 Heart Rate 1: 87 bpm Height: 5'3" SpO2: 97% Weight: 191 lbs 11/29/2013 Blood Pressure 1: 138/76 Code: 8480-6 BMI: 33.8 Code: 39734-9 Heart Rate 1: 68 bpm Height: 5'3" Weight: 191 lbs 10/04/2013 Blood Pressure 1: 140/88 Code: 8480-6 BMI: 33.1 Code: 33632-5 Heart Rate 1: 72 bpm Height: 5'3" Weight: 187 lbs 05/31/2013 Blood Pressure 1: 132/84 Code: 8480-6 Heart Rate 1: 60 bpm Weight: 191 lbs 11/30/2012 Blood Pressure 1: 128/72 Code: 8480-6 BMI: 33.5 Code: 69416-9 Heart Rate 1: 72 bpm Height: 5'3" Weight: 189 lbs 05/31/2012 Blood Pressure 1: 126/66 Code: 8480-6 BMI: 35.1 Code: 78068-3 Heart Rate 1: 72 bpm Height: 5'3" Weight: 198 lbs 11/25/2011 Blood Pressure 1: 156/80 Code: 8480-6 BMI: 34.2 Code: 56382-7 Heart Rate 1: 64 bpm Height: 5'3" Weight: 196 lbs 08/21/2011 Blood Pressure 1: 118/78 Code: 8480-6 Heart Rate 1: 68 bpm Respiratory Rate: 16 bpm Weight: 184 lbs 04/14/2011 Blood Pressure 1: 128/68 Code: 8480-6 BMI: 34.2 Code: 64269-1 Heart Rate 1: 56 bpm Height: 5'3" Respiratory Rate: 20 bpm Weight: 193 lbs 10/14/2010 Blood Pressure 1: 124/72 Code: 8480-6 BMI: 30.9 Code: 37505-9 Heart Rate 1: 60 bpm Height: 5'4" [...] 03/11/2017 None rash Location-Head/Neck on the left [facility] 03/11/2017 None rash Location-Head/Neck on the right [...] dizziness 11/29/2013 1 episode reported last w [place] hypertension Pertinent Findings Denies dyspnea 11/29/2013 None [...] Encounters Encounter Performer Loca tion Codes Date [id number] EST. PATIENT, LEVEL III Diagnosis: Acute laryngopharyngitis[ICD10: J06.0] Diagnosis: Other allergic rhinitis[ICD10: J30.89] [facility] CPT-4: 47036 07/08/2018 [id number]) [id number] EST. P ATIENT, LEVEL IV Diagnosis: Essential (primary) hypertension[ICD10: I10] Diagnosis: Mixed hyperlipidemia[ICD10: E78.2] Diagnosis: Obstructive sleep apnea (adult) (pediatric)[ICD10: G47.33] Evelyn Yeung MD, [facility] CPT-4: 21279 02/11/2018 30225 EST. PATIENT, LEVEL III Diagnosis: Plantar wart[ICD10: B07.0] Diagnosis: Contusion of right upper arm, initial encounter[ICD10: S40.021A] Diagnosis: Corns and callosities[ICD10: L84] Diagnosis: VACCIN FOR INFLUENZA[ICD10: Z23] Fay Yeung MD, [facility] CPT-4: 59351 10/23/2017 ([id number]) 10366 EST. P ATIENT, LEVEL IV Diagnosis: Essential (primary) hypertension[ICD10: I10] Diagnosis: Corns and callosities[ICD10: L84] Diagnosis: Mixed hyperlipidemia[ICD10: E78.2] Evelyn Yeung MD, [facility] CPT- 4: 13233 08/13/2017 ([id number]) 34781 EST. P ATIENT, LEVEL III Diagnosis: Essential (primary) hypertension[ICD10: I10] Diagnosis: Corns and callosities[ICD10: L84] Kat Yeung MD, [facility] CPT- 4: 51970 07/16/2017 ([id number]) 31771 EST. P ATIENT, LEVEL III Diagnosis: Pain in right toe(s)[ICD10: M79.674] Diagnosis: Corns and callosities[ICD10: L84] Kat Yeung MD, [facility] CPT- 4: 27539 06/29/2017 ([id number]) Miscellaneou s no charge Diagnosis: Cough[ICD10: R05] Diagnosis: Other allergic rhinitis[ICD10: J30.89] Diagnosis: Acute bronchitis, unspecified[ICD10: J20.9] Kat Yeung MD, [facility] CPT-4: 14692 05/01/2017 85065 EST. PATIENT, LEVEL IV Diagnosis: Cough[ICD10: R05] Diagnosis: Other acute sinusitis[ICD10: J01.80] Diagnosis: Other allergic rhinitis[ICD10: J30.89] Fay Yeung MD, [facility] CPT-4: 90493 04/24/2017 08405 EST. PATIENT, LEVEL III Diagnosis: Rash and other nonspecific skin eruption[ICD10: R21] Fay Yeung MD, [facility] CPT-4: 92192 03/11/2017 ([id number]) 02036 EST. P ATIENT, LEVEL IV Diagnosis: Essential (primary) hypertension[ICD10: I10] Diagnosis: Mixed hyperlipidemia[ICD10: E78.2] Evelyn Yeung MD, [facility] CPT- 4: 39270 02/19/2017 ([id number]) 40739 EST. P ATIENT, LEVEL IV Diagnosis: Encounter for screening mammogram for malignant neoplasm of breast[ICD10: Z12.31] Diagnosis: Essential (primary) hypertension[ICD10: I10] Diagnosis: Mixed hyperlipidemia[ICD10: E78.2] Evelyn Yeung MD, [facility] CPT- 4: 85895 10/16/2016 ([id number]) 61939 EST. P ATIENT, LEVEL IV Diagnosis: Essential (primary) hypertension[ICD10: I10] Diagnosis: Primary central sleep apnea[ICD10: G47.31] Diagnosis: Low back pain[ICD10: M54.5] [facility] CPT-4: 74927 06/19/2016 ([id number]) 84890 EST. P ATIENT, LEVEL III Diagnosis: Pain in left shoulder[ICD10: M25.512] Diagnosis: Pain in left upper arm[ICD10: M79.622] Kat Yeung MD, [facility] CPT-4: 02959 03/13/2016 ([id number]) 95939 EST. P ATIENT, LEVEL III Diagnosis: Essential (primary) hypertension[ICD10: I10] Diagnosis: Pain in left shoulder[ICD10: M25.512] [facility] CPT-4: 66492 02/22/2016 ([id number]) 44621 EST. P ATIENT, LEVEL III Diagnosis: Orthostatic hypotension[ICD10: I95.1] [facility] CPT-4: 40244 12/18/2015 ([id number]) 80694 EST. P ATIENT, LEVEL III Diagnosis: Essential (primary) hypertension[ICD10: I10] Diagnosis: Dysuria[ICD10: R30.0] Diagnosis: VACCIN FOR INFLUENZA[ICD10: Z23] Evelyn Yeung MD, [facility] CPT-4: 07205 11/13/2015 ([id number]) Miscellaneou s no charge Diagnosis: Essential (primary) hypertension[ICD10: I10] Kat Stephen Yeung MD, [facility] CPT-4: 94689 07/23/2015 ([id number]) 42464 EST. P ATIENT, LEVEL III Diagnosis: Essential (primary) hypertension[ICD10: I10] Evelyn Yeung MD[facility] CPT-4: 58890 07/10/2015 ([id number]) 17070 EST. P ATIENT, LEVEL IV Diagnosis: Essential (primary) hypertension[ICD10: I10] Diagnosis: Primary central sleep apnea[ICD10: G47.31] Diagnosis: Anemia, unspecified[ICD10: D64.9] Evelyn Yeung MD, [facility] CPT-4: 23529 06/05/2015 ([id number]) 96897 EST. P ATIENT, LEVEL III Diagnosis: Essential (primary) hypertension[ICD10: I10] Evelyn Yeung MD[facility] CPT-4: 22498 05/01/2015 00641 EST. PATIENT, LEVEL III Diagnosis: Pain in right knee[ICD10: M25.561] Diagnosis: Essential (primary) hypertension[ICD10: I10] Diagnosis: Encounter for follow-up examination after completed treatment for conditions other than malignant neoplasm[ICD10: Z09] Fay Yeung MD, [facility] CPT-4: 15281 04/09/2015 ([id number]) 11439 EST. P ATIENT, LEVEL IV Diagnosis: Essential (primary) hypertension[ICD10: I10] Diagnosis: Pain in right knee[ICD10: M25.561] Evelyn Yeung MD, [facility] CPT- 4: 41229 03/26/2015 ([id number]) 82298 EST. P ATIENT, LEVEL III Diagnosis: Left upper quadrant pain[ICD10: R10.12] Diagnosis: Lower abdominal pain, unspecified[ICD10: R10.30] Diagnosis: Recurrent oral aphthae[ICD10: K12.0] Evelyn Yeung MD, [facility] CPT-4: 06251 11/17/2014 ([id number]) 92470 EST. P ATIENT, LEVEL III Diagnosis: Left groin pain[ICD9: 789.09] Evelyn Yeung MD, [facility] CPT-4: 84160 10/31/2014 ([id number]) 16182 EST. P ATIENT, LEVEL IV Diagnosis: ESSENTIAL HYPERTENSION[ICD9: 401.9] Diagnosis: HYPERLIPIDEMIA[ICD9: 272.4] Evelyn Yeung MD, [facility] CPT-4: 19761 09/28/2014 ([id number]) 04929 EST. P ATIENT, LEVEL III Diagnosis: CELLULITIS OF FACE[ICD9: 682.0] Tatiana Yeung MD, [facility] CPT-4: 82819 08/31/2014 ([id number]) 65543 EST. P ATIENT, LEVEL IV Diagnosis: ESSENTIAL HYPERTENSION[ICD9: 401.9] Diagnosis: Hyperlipidemia[ICD9: 272.4] Diagnosis: Reyes's cyst of knee[ICD9: 727.51] Evelyn Yeung MD, [facility] CPT- 4: 56099 05/29/2014 ([id number]) 70833 EST. P ATIENT, LEVEL III Diagnosis: ESSENTIAL HYPERTENSION[ICD9: 401.9] Diagnosis: HYPERLIPIDEMIA[ICD9: 272.4] Evelyn Yeung MD, [facility] CPT-4: 86973 11/29/2013 ([id number]) 43001 EST. P ATIENT, LEVEL III Diagnosis: CELLULITIS OF FACE[ICD9: 682.0] [facility] CPT-4: 95778 10/04/2013 ([id number]) 34767 EST. P ATIENT, LEVEL IV Diagnosis: ESSENTIAL HYPERTENSION[SNOMED: 66601807] Diagnosis: HYPERLIPIDEMIA[ICD9: 272.4] [facility] CPT-4: 71648 05/31/2013 ([id number]) 78248 EST. P ATIENT, LEVEL III Diagnosis: ESSENTIAL HYPERTENSION[SNOMED: 39182210] Diagnosis: ABN FINDINGS NEC[ICD9: 796.9] Evelyn Yeung MD, [facility] CPT-4: 87314 11/30/2012 ([id number]) 29312 EST. P ATIENT, LEVEL IV Diagnosis: ESSENTIAL HYPERTENSION[SNOMED: 26883930] Diagnosis: HYPERLIPIDEMIA[ICD9: 272.4] Diagnosis: Abnormal Pap smear[ICD9: 796.9] Evelyn Yeung MD, [facility] CPT-4: 29845 05/31/2012 ([id number]) 17214 EST. P ATIENT, LEVEL III Diagnosis: Abnormal Pap smear[ICD9: 796.9] Diagnosis: ESSENTIAL HYPERTENSION[SNOMED: 13780695] Evelyn Yeung MD, [facility] CPT-4: 96999 11/25/2011 ([id number]) 88954 EST. 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 P ATIENT, LEVEL IV Diagnosis: ESSENTIAL HYPERTENSION[SNOMED: 69786197] Diagnosis: Hyperlipidemia[ICD9: 272.4] Diagnosis: Annual physical exam[ICD9: V70.0] Evelyn Yeung MD, [facility] CPT-4: 27667 04/14/2011 35983 EST. PATIENT, LEVEL III Diagnosis: ESSENTIAL HYPERTENSION[SNOMED: 40481080] Diagnosis: Dyspareunia, female[ICD9: 625.0] Evelyn Yeung MD, [facility] CPT-4: 31095 10/14/2010 Plan of Care Planned Activity Notes [...] in the nasal steroid allergy spray. 07/08/2018 Patient Education: Patient Medication Summary Completed 07/08/2018 Visit Plan: Hypertension - well con rukhsanaed - continue with current medications, continue with [...] cpap. 02/11/2018 Appointment: Evelyn Yeung WPtel: [phone] [facility] (15 min) Moderate 02/11/2018 Patient Education: Patient [...] no improvement 10/23/2017 Appointment: Fay Marie WPtel: [phone] [facility] (15 min) Moderate 10/23/2017 Patient Education: [...] to assure normal liver response to medications. Teller on 4th toe right foot lateral surface - removed with scalpel. 08/13/2017 Appointment: Evelyn Yeung WPtel: [facility] (15 min) Moderate 08/13/2017 Patient Education: Patient Medication Summary Completed 08/13/2017 Visit Plan: ALV-sfcfsdahgf-cn goldberg es Callus right toe -healed-no further treatment indicated 07/16/2017 Appointment: Kat Mitchell WPtel: [facility]5 [phone] (15 min) Moderate 07/16/2017 Patient Education: Patient Medication Summary Completed 07/16/2017 Appointment: Kat Mitchell WPtel: [address] [place], [place] [phone] (15 min) Moderate 07/14/2017 Visit Plan: Callus-right 4th toe-de brided today in the office-instructed patient on wound care and to call if symptoms do not resolve or if any worse-patient verbalized understanding of plan. 06/29/2017 Appointment: Kat Mitchell WPtel: [phone] (15 min) Moderate 06/29/2017 Patient Education: Patient Medication Summary Completed 06/29/2017 Visit Plan: Bronchitis-cough Discus sed natural and expected course of this diagnosis and need to alert me if symptoms do not follow expected course, or if any worse. RX sent to patient's pharmacy. 05/01/2017 Appointment: Kat Mitchell WPtel: [phone] [phone] (10 min) Simple 05/01/2017 Patient Education: [...] spray. 04/24/2017 Appointment: Fay Marie WPtel: [phone] (15 min) Moderate 04/24/2017 Patient Education: Patient [...] discharge. 03/11/2017 Appointment: Fay Marie WPtel: [phone] [facility] (30 min) Complex 03/11/2017 Patient Education: Patient [...] medications. 02/19/2017 Appointment: Evelyn Yeung WPtel: [phone] [facility] (15 min) Moderate 02/19/2017 Patient Education: Patient [...] to medications. 10/16/2016 [facility]ment[phone] ([facility]) Mod[facility] 10/16/2016 Patient Education: Patient [...] symptoms. 06/19/2016 Appointment: [phone] (15 min) Moderate 06/19/2016 Patient Education: Patient Medication Summary Completed 06/19/2016 Patient Education: Obesity Completed 06/19/2016 Visit Plan: Left shoulder pain-adriana ent has done rest, ice, and anti inflammatories-shoulder pain persists and causing weakness in left arm- will xray shoulder/humerus and proceed with MRI if indicated-patient verbalized understanding of plan. 03/13/2016 Appointment: Kat Mitchell WPtel: [phone] [place] (15 min) Moderate 03/13/2016 Appointment: Evelyn Yeung WPtel: [facility] (15 min) Moderate 03/13/2016 Patient Education: Patient [...] Kat Mitchell WPtel: [facility]5 [phone] [place] (15 min) Moderate 02/22/2016 Patient Education: Patient Medication Summary Completed 02/22/2016 Patient Education: Obesity Completed 02/22/2016 Appointment: Kat Mitchell WPtel: [facility]5 [phone] [place] (30 min) Complex 02/06/2016 Visit Plan: HYPOTENSION - RECOMMEND ED PT TO DECREASE THE LISIONPRIL TO 20MG ONE TIME DAILY. 12/18/2015 Appointment: Evelyn Yeung WPtel: [facility] [place] (15 min) Moderate 12/18/2015 Patient Education: Patient [...] home. 11/13/2015 Appointment: [phone] (15 min) Moderate 11/13/2015 Patient Education: [...] surrogate. 10/10/2015 [facility]ment[phone] (30 min) Complex 10/10/2015 Patient Education: [...] home. 07/10/2015 Appointment: [phone] (15 min) Moderate 07/10/2015 Patient Education: Patient [...] cpap 06/05/2015 Appointment: [phone] (15 min) Moderate 06/05/2015 Patient Education: [...] Completed 04/09/2015 Appointment: [facility]el[phone] [place] (15 min) Moderate 03/29/2015 Visit Plan: Hypertension [...] 11/17/2014 Visit Plan: Left groin pain-Dr Vides ston in to evaluate patient-no palpable abnormality today [...] medications. 09/28/2014 Appointment: [phone] Follow up 09/28/2014 Patient Education: Patient Medication Summary Completed 09/28/2014 Patient Education: Hypertension Completed 09/28/2014 Care Plan: COMPLETE CBC AUTOMATED LOINC : 80586-1 Ordered 09/28/2014 Visit Plan: Cellulitis - RX [...] at rest. 05/29/2014 Appointment: Evelyn Yeung WPtel: [facility] [address] Follow up 05/29/2014 Patient Education: Patient Medication [...] to medications. 11/29/2013 Appointment: Evelyn Yeung WPtel: [facility] Follow up 11/29/2013 Patient Education: Patient Medication Summary Completed 11/29/2013 Patient Education: Hypertension Completed 11/29/2013 Care Plan: COMPLETE CBC AUTOMATED LOINC : 48873-9 Ordered 11/29/2013 Visit Plan: Cellulitis - continue w ith oral antibiotics as previously directed, return to clinic as previously directed, call for acute change in symptoms, worsening redness, warmth, discharge. 10/04/2013 Appointment: [facility]el[phone] [facility] 10/04/2013 Patient Education: Patient Medication Summary Completed [...] months 05/31/2013 Appointment: [facility]el[phone] Follow up 05/31/2013 Patient Education: Patient Medication [...] years. 11/30/2012 Appointment: [facility]Ptel[phone] Pap Only 11/30/2012 Patient Education: Patient Medication [...] of 2011. 05/31/2012 Appointment: Evelyn Yeung WPtel: [address] [place], [place] [phone] [place] Pap Only 05/31/2012 Patient Education: Patient [...] at home. 11/25/2011 Appointment: Evelyn Yeung WPtel: [address] [place] [address] [place] Pap Only 11/25/2011 Patient Education: Patient Medication Summary Completed 11/25/2011 Patient Education: High Blood Pressure: Essential Hypertension Completed 11/25/2011 Appointment: Evelyn Yeung WPtel: [facility] [place] Pap Only 09/01/2011 Appointment: Evelyn Yeung [facility]Ptel: [phone] [place] Pap Only 08/26/2011 Visit Plan: Hypertension [...] hot flashes. 08/21/2011 Appointment: [facility]Ptel: [phone] [place] Pap Only 08/21/2011 Patient Education: Patient Medication Summary Completed 08/21/2011 Patient Education: High Blood Pressure: Essential Hypertension Completed 08/21/2011 Appointment: Evelyn Yeung WPtel: [facility] [place] Other 04/16/2011 Visit Plan: Hypertension - well con rukhsanaed - continue with current medications, continue with [...] or prn. 04/14/2011 Appointment: [facility]Ptel: [phone] [place] Pap Only 04/14/2011 Patient Education: Patient Medication Summary Completed 04/14/2011 Patient Education: High Blood Pressure: Essential Hypertension Completed 04/14/2011 Appointment: [phone] [place] Injection 12/19/2010 Patient Education: Patient Medication [...] discomfort. 10/14/2010 Appointment: [facility]Ptel[phone] Other 10/14/2010 Patient Education: Patient Medication Summary [...] pt doing well with the cpap. . AFU-tfxsqbweqi-nm changes Callus right toe -healed-no further treatment [...] Left groin pain-Dr Yeung in to julio uate patient-no palpable abnormality today in the office-recommend [...] to assure normal liver response to medications. Teller on 4th toe right foot lateral surface [...]
--- OUTSIDE RECORDS SUMMARY | 2019-07-08 08:14 | XMS REPORT | CCD ---
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 Unknown Has never used illegal drugs 011 Allergies, Adverse Reactions, Alerts Allergies, Adverse Reactions, Alerts data not found Past Medical History Illness Codes Condition Status Onset Date Resolved Date Essential (primary) hypertension ICD-9: 401.1 ICD-10: I10 Active 02/21/2016 Unknown Low back pain ICD-9: 724.2 ICD-10: M54.5 Active 06/19/2016 Unknown Primary central slee p apnea ICD-9: 327.22 ICD-10: G47.31 Active 06/19/2016 Unknown Pain in left shoulder ICD-9: 719.41 ICD-10: M25.512 Active 02/21/2016 Unknown Pain in left upper arm ICD-9: 729.5 ICD-10: M79.622 Active 03/13/2016 Unknown Orthostatic hypotension ICD-9: 458.0 ICD-10: I95.1 Active 12/17/2015 Unknown Dysuria ICD-9: 788.1 ICD-10: R30.0 Active 11/12/2015 Unknown VACCIN FOR INFLUENZA ICD-9: V04.81 ICD-10: Z23 Active 11/13/2015 Unknown Encounter for genera adult medical examination without abnormal findings ICD-9: [...] hypertension ICD-9: 401.1 ICD-10: I10 02/21/2016 Active Low back pain ICD-9: 724.2 ICD-10: M54.5 06/19/2016 Active Primary central slee p apnea ICD-9: 327.22 ICD-10: G47.31 06/19/2016 Active Pain in left shoulder ICD-9: 719.41 ICD-10: M25.512 02/21/2016 Active Pain in left upper arm ICD-9: 729.5 ICD-10: M79.622 03/13/2016 Active Orthostatic hypotension ICD-9: 458.0 ICD-10: I95.1 12/17/2015 Active Dysuria ICD-9: 788.1 ICD-10: R30.0 11/12/2015 Active VACCIN FOR INFLUENZA ICD-9: V04.81 ICD-10: Z23 11/13/2015 Active Encounter for genera l adult medical [...] Date Stop Date Sta tus Fill Instructions potassium chloride E R 10 mEq capsule,extended release RxNorm: 422249 TAKE 1 CAPSULE THREE TIMES WEEKLY 08/12/2016 08/06/2017 Active chlorthalidone 25 mg tablet RxNorm: 655474 TAKE 1 TABLET EVERY M ORNING 06/30/2016 06/24/2017 Ac tive simvastatin 20 mg ta blet RxNorm: 964440 TAKE 1 TABLET EVERY DAY 01/21/2016 01/14/2017 Active lisinopril 40 mg tablet RxNorm: 018737 1/2 Tablet(s) daily 12/18/2015 05/15/2021 Active metoprolol succinate ER 50 mg tablet,extended release 24 hr RxNorm: 748424 Tablet(s) TAKE 1 TABLET TWICE DAILY 12/13/2015 12/06/2016 Active metoprolol succinate ER 50 mg tablet,extended release 24 hr RxNorm: 553593 Tablet(s) TAKE 1 TABLET TWICE DAILY 12/13/2015 12/12/2015 Inactive metoprolol succinate ER 50 mg tablet,extended release 24 hr RxNorm: 971542 Tablet(s) TAKE 1 TABLET TWICE DAILY 11/13/2015 12/12/2015 Inactive Keflex 500 mg capsule RxNorm: 715715 1 Capsule(s) PO TID 11/13/2015 11/19/2015 Inactive chlorthalidone 25 mg tablet RxNorm: 913094 1 Tablet(s) PO QAM 08/08/2015 06/29/2016 Inactive potassium chloride E R 10 mEq capsule,extended release RxNorm: 206766 1 Capsule(s) PO TIW 08/08/2015 08/01/2016 Inactive potassium chloride E R 10 mEq capsule,extended release RxNorm: 135399 1 Capsule(s) PO TIW 06/20/2015 08/07/2015 Inactive lisinopril 40 mg tablet RxNorm: 041253 TAKE 1 TABLET EVERY DAY 2015 12/17/2015 Inactive potassium chloride E R 10 mEq capsule,extended release RxNorm: 599400 1 Capsule(s) PO TIW 2015 06/19/2015 Inactive chlorthalidone 25 mg tablet RxNorm: 352541 1 Tablet(s) PO QAM 06/05/2015 08/07/2015 Inactive potassium chloride E R 10 mEq capsule,extended release RxNorm: 237873 1 Capsule(s) PO TIW 06/05/2015 06/17/2015 Inactive lisinopril 40 mg tablet RxNorm: 766627 1/2 Tablet(s) PO BID 05/07/2015 06/17/2015 Inactive amoxicillin 500 mg t ablet RxNorm: 410887 4 Tablet(s) PO one ho ur prior to dental appts UD 05/07/2015 10/08/2015 Inactive amoxicillin 500 mg t ablet RxNorm: 569672 4 Tablet(s) PO one ho ur prior to dental appts UD 05/04/2015 05/06/2015 Inactive lisinopril 40 mg tablet RxNorm: 554352 1/2 Tablet(s) PO BID 05/04/2015 05/06/2015 Inactive amoxicillin 500 mg t ablet RxNorm: 270045 4 Tablet(s) PO one ho ur prior to dental appts UD 05/01/2015 05/03/2015 Inactive lisinopril 40 mg tablet RxNorm: 974841 1/2 Tablet(s) PO BID TAKE 1 TABLET DAILY 05/01/2015 05/03/2015 In active metoprolol succinate ER 50 mg tablet,extended release 24 hr RxNorm: 431500 TAKE 1 AND 1/2 TABLETS TWICE DAILY 04/16/2015 11/12/2015 Inactive simvastatin 20 mg ta blet RxNorm: 472056 TAKE 1 TABLET EVERY DAY 04/16/2015 01/10/2016 Inactive acyclovir 800 mg tablet RxNorm: 559533 1 Tablet(s) PO TID 11/17/2014 11/26/2014 Inactive acyclovir 400 mg tablet RxNorm: 943288 2 Tablet(s) PO QID 10/06/2014 10/05/2014 Inactive acyclovir 400 mg tablet RxNorm: 910831 2 Tablet(s) PO QID 10/06/2014 10/15/2014 Inactive cephalexin 500 mg ca psule RxNorm: 974964 1 Capsule(s) PO TID 08/31/2014 09/04/2014 Inactive Bactroban 2 % topica l ointment RxNorm: 476592 1 Application TOP BID 08/31/2014 10/08/2015 Inactive Bactroban 2 % topica l ointment RxNorm: 280169 1 Application TOP BID 08/31/2014 09/04/2014 Inactive simvastatin 20 mg ta blet RxNorm: 515229 Tablet(s) TAKE 1 TABL ET DAILY 03/31/2014 04/15/2015 In active lisinopril 40 mg tablet RxNorm: 374891 Tablet(s) TAKE 1 TABLET DAILY 03/31/2014 04/30/2015 In active metoprolol succinate ER 50 mg tablet,extended release 24 hr RxNorm: 304968 Tablet(s) TAKE ONE AND ONE-HALF TABLETS (75 MG) TWICE A DAY 03/09/2014 04/15/2015 Inactive Prio r authorization approved for this med until 03-09-2015 metoprolol succinate ER 50 mg tablet,extended release 24 hr RxNorm: 213909 Tablet(s) TAKE ONE AND ONE-HALF TABLETS (75 MG) TWICE A DAY 03/06/2014 03/08/2014 Inactive simvastatin 20 mg ta blet RxNorm: 317970 TAKE 1 TABLET DAILY 01/24/2014 03/30/2014 Inactive lisinopril 40 mg tablet RxNorm: 185066 TAKE 1 TABLET DAILY 01/24/2014 03/30/2014 Inactive simvastatin 20 mg ta blet RxNorm: 198601 TAKE 1 TABLET DAILY 10/24/2013 01/23/2014 Inactive cephalexin 500 mg ca psule RxNorm: 118506 1 Capsule(s) PO TID 10/04/2013 10/08/2013 Inactive metoprolol succinate ER 50 mg tablet,extended release 24 hr RxNorm: 629319 TAKE ONE AND ONE-HALF TABLETS (75 MG) TWICE A DAY 09/16/2013 03/05/2014 Inactive simvastatin 20 mg ta blet RxNorm: 915854 Tablet(s) PO TAKE 1 T ABLET DAILY 04/21/2013 10/23/2013 In active metoprolol succinate ER 50 mg tablet,extended release 24 hr RxNorm: 462562 Tablet(s) PO TAKE ONE AND ONE-HALF TABLETS (75 MG) TWICE A DAY 03/24/2013 09/15/2013 Inactive metoprolol succinate ER 50 mg tablet,extended release 24 hr RxNorm: 525463 Tablet(s) PO TAKE ONE AND ONE-HALF TABLETS (75 MG) TWICE A DAY 12/20/2012 03/23/2013 Inactive lisinopril 40 mg tablet RxNorm: 450778 Tablet(s) PO TAKE 1 TABLET DAILY 11/18/2012 01/23/2014 In active simvastatin 20 mg ta blet RxNorm: 217474 Tablet(s) PO TAKE 1 T ABLET DAILY 08/06/2012 04/20/2013 In active metoprolol succinate ER 50 mg tablet,extended release 24 hr RxNorm: 058299 Tablet(s) PO TAKE ONE AND ONE-HALF TABLETS (75 MG) TWICE A DAY 06/15/2012 12/19/2012 Inactive metoprolol succinate ER 50 mg tablet,extended release 24 hr RxNorm: 565507 Tablet(s) PO TAKE ONE AND ONE-HALF TABLETS (75 MG) TWICE A DAY 03/01/2012 06/14/2012 Inactive Diflucan 150 mg tablet RxNorm: 611781 1 Tablet(s) PO daily 12/03/2011 12/02/2011 Inactive Diflucan 150 mg tablet RxNorm: 965976 1 Tablet(s) PO daily 12/03/2011 12/07/2011 Inactive Diflucan 150 mg tablet RxNorm: 247676 1 Tablet(s) PO daily 12/03/2011 12/02/2011 Inactive Influenza Virus Vacc ine 0.5 mL RxNorm: IM 11/25/2011 11/25/2011 Inactive metoprolol succinate ER 50 mg tablet,extended release 24 hr RxNorm: 251073 Tablet(s) PO 09/16/2011 02/29/2012 Inactive TAKE ONE AND ONE-HALF TABLETS (75 MG) TW ICE A DAY lisinopril 40 mg tablet RxNorm: 938730 Tablet(s) PO 08/25/2011 11/17/2012 Inactive TAKE 1 TABLET DAILY simvastatin 20 mg ta blet RxNorm: 663759 Tablet(s) PO 07/31/2011 08/05/2012 Inactive TAKE 1 TABLET DAILY Influenza Virus Vacc ine 0.5 mL RxNorm: 1/2 Milliliter(s) IM 12/19/2010 12/19/2010 Inactive metoprolol succinate ER 50 mg tablet,extended release 24 hr RxNorm: 026425 Tablet(s) PO 12/02/2010 09/15/2011 Inactive TAKE ONE AND ONE-HALF TABLETS (75 MG) TW ICE A DAY Calcium 600 + D(3) 6 00 mg (1,500 mg)-400 unit Tab RxNorm: 008163 1 Tablet(s) PO daily No Start Date Active Tylenol PM Extra Str ength 25 mg-500 mg Tab RxNorm: 0774963 1 Tablet(s) PO QHS No Start Date Active Probiotic & Acidophi lesa oral RxNorm: oral No Start D ate Active Fish Oil 1,200 mg-14 4 mg-216 mg Cap RxNorm: 1 Capsule(s) PO BID No Start Date Active 1400mg multivitamin Cap RxNorm: 1 Capsule(s) PO daily No Start Date Active Aspirin Childrens 81 mg Chewable Tab RxNorm: 090904 1 Tablet(s) PO daily No Start Date Active premarin 0.5% Vagina l cream RxNorm: [address] art Date 08/30/2014 Inactive simvastatin 20 mg Tab RxNorm: 127952 1 Tablet(s) PO daily No Start Date 07/30/2011 Inactive lisinopril 40 mg Tab RxNorm: 960887 1 Tablet(s) PO daily No Start Date 08/24/2011 Inactive Fish Oil 340 mg-1,00 0 mg Cap RxNorm: 1 Capsule(s) PO TID No Start Date 04/14/2011 Inactive [place] 20 mg Tab RxNorm: 886675 1 Tablet(s) PO daily No Start Date 04/14/2011 Inactive metoprolol succinate ER 50 mg 24 hr Tab RxNorm: 927780 1 &1/2 Tablet(s) PO d aily No Start Date 12/01/2010 Inactive Medication Administered Medication Codes Instruc tions Start Date Status Influenza Virus Vaccine 0.5 mL RxNorm: 11/25/2011 No longer Active Influenza Virus Vaccine 0.5 mL RxNorm: 1/2Milliliter 12/19/2010 No longer Active Immunizations Vaccine Codes Date Status Influenza CVX: 141 11/12 completed Influenza CVX: 141 11/24 completed Influenza CVX: 141 12/19 completed Assessments Condition Codes Effectiv e Dates Essential (primary) hypertension ICD -10: I10 ICD-9: 401.1 06/19/2016 Primary central sleep apnea ICD-10: G47.31 ICD-9: 327.22 06/19/2016 Low back pain ICD-10: M54.5 ICD-9: 724.2 06/19/2016 Pain in left shoulder ICD-10: M25.51 2 ICD-9: 719.41 03/13/2016 Pain in left upper arm ICD-10: M79.6 22 ICD-9: 729.5 03/13/2016 Orthostatic hypotension ICD-10: I95. 1 ICD-9: 458.0 12/18/2015 Dysuria ICD-10: R30.0 ICD-9: 788.1 11/13/2015 VACCIN FOR INFLUENZA ICD-10: Z23 ICD-9: V04.81 11/13/2015 Encounter for general adult medical exam [...] Reason For Visit Effective Dates Notes hypertension 06/19/2016 shoulder pain 03/13/2016 blood pressure [...] Observation Code Item Item Code Result Date Lipid Ord30 CHOL 141 mg/dL 02/28/2016 Lipid Ord30 HDL 48.0 mg/dl 02/28/2016 Lipid Ord30 TRIG 144 mg/dL 02/28/2016 Lipid Ord30 LDL 64 mg/dL 02/28/2016 Lipid Ord30 C/HDL 2.9 Ratio 02/28/2016 Tsh Ord6 hTSH II 2.22 uIU/mL 02/28/2016 Comp Metabolic Vaf341 NA 140 mEq/L 02/28/2016 Comp Metabolic Hxw218 K 3.9 mEq/L 02/28/2016 Comp Metabolic Adt691 CL 102 mEq/L 02/28/2016 Comp Metabolic Yzg978 CO2 31.0 mEq/L 02/28/2016 Comp Metabolic Dzg698 AN ION GAP 11 02/28/2016 Comp Metabolic Mtc780 GL UCOSE 87 mg/dL 02/28/2016 Comp Metabolic Loj285 Cr eat 1.2 mg/dL 02/28/2016 Comp Metabolic Exw420 eG FR 45 ml/min/1.73m2 02/27 Comp Metabolic Eru880 BUN 23 mg/dL 02/28/2016 Comp Metabolic Kfv673 B/ C Ratio 18.5 Ratio 02/28/2016 Comp Metabolic Hzd719 CA LCIUM 9.2 mg/dL 02/28/2016 Comp Metabolic Fdb522 AL K PHOS 53 U/L 02/28/2016 Comp Metabolic Cvu719 T(SGOT) 16 U/L 02/28/2016 Comp Metabolic Uzj582 AL T(SGPT) 17 U/L 02/28/2016 Comp Metabolic Mjq137 BI LI T 0.5 mg/dL 02/28/2016 Comp Metabolic Iae676 AL BUMIN 4.2 g/dL 02/28/2016 Comp Metabolic Wvx658 TP RO 6.7 g/dL 02/28/2016 Comp Metabolic Pae441 GL OB 2.5 g/dL 02/28/2016 Comp Metabolic Muu768 A/ G Ratio 1.7 Ratio 02/28/2016 Comp Metabolic Jcu696 Os mo 282 mOsmo 02/28/2016 Cbc With [...] 30.5 pg 02/28/2016 Cbc With Differential Ord2 Storey% 5.6 % 02/28/2016 Cbc With Differential Ord2 Eos% 3.9 % 02/28/2016 Cbc With Differential Ord2 MCHC 33.6 pg 02/28/2016 Cbc With Differential Ord2 Baso% 0.4 % 02/28/2016 Cbc With Differential Ord2 PLT 214 K/ul 02/28/2016 Cbc With Differential Ord2 RDW 13.8 % 02/28/2016 Cbc With Differential Ord2 Neut ABS# 3.44 K/ul 02/28/2016 Cbc With Differential Ord2 Lymph ABS# 1.21 K/ul 02/28/2016 Cbc With Differential Ord2 Storey ABS# 0.3 K/ul 02/28/2016 Cbc With Differential Ord2 Eos ABS# 0.2 K/ul 02/28/2016 Cbc With Differential Ord2 Baso ABS# 0.0 K/ul 02/28/2016 Culture Urine [id number] URI NE CULTURE SEE NOTES 11/15/2015 Urine Culture Ucult Comp lete Growth of aerobe sent to ref lab 11/14/2015 Tibc Ord40 Iron 81 ug/dl 06/05/2015 Tibc Ord40 UIBC 306 ug/dL 06/05/2015 Tibc Ord40 TIBC 387 ug/dL 06/05/2015 Tibc Ord40 Fe-%Sat 20.9 % 06/05/2015 Comp Metabolic Rip570 NA 139 mEq/L 03/19/2015 Comp Metabolic Sur591 K 4.0 mEq/L 03/19/2015 Comp Metabolic Gmr040 CL 105 mEq/L 03/19/2015 Comp Metabolic Mzf007 CO2 29.0 mEq/L 03/19/2015 Comp Metabolic Lcj695 AN ION GAP 9 03/19/2015 Comp Metabolic Ano312 GL UCOSE 90 mg/dL 03/19/2015 Comp Metabolic Ltu487 Cr eat 0.8 mg/dL 03/19/2015 Comp Metabolic Zeu961 eG FR 80 ml/min/1.73m2 03/19 Comp Metabolic Fpq352 BUN 14 mg/dL 03/19/2015 Comp Metabolic Zdj052 B/ C Ratio 18.4 Ratio 03/19/2015 Comp Metabolic Eyj395 CA LCIUM 9.5 mg/dL 03/19/2015 Comp Metabolic Sar402 AL K PHOS 39 U/L 03/19/2015 Comp Metabolic Hki491 T(SGOT) 17 U/L 03/19/2015 Comp Metabolic Mkt849 AL T(SGPT) 22 U/L 03/19/2015 Comp Metabolic Ymk698 BI LI T 0.5 mg/dL 03/19/2015 Comp Metabolic Oty321 AL BUMIN 4.2 g/dL 03/19/2015 Comp Metabolic Wzd879 TP RO 6.3 g/dL 03/19/2015 Comp Metabolic Ocg558 GL OB 2.1 g/dL 03/19/2015 Comp Metabolic Hsp260 A/ G Ratio 2.0 Ratio 03/19/2015 Comp Metabolic Fuk750 Os mo 278 mOsmo 03/19/2015 Lipid Ord30 CHOL 145 mg/dL 03/19/2015 Lipid Ord30 HDL 54.0 mg/dl 03/19/2015 Lipid Ord30 TRIG 92 mg/dL 03/19/2015 Lipid Ord30 LDL 73 mg/dL 03/19/2015 Lipid Ord30 C/HDL 2.7 Ratio 03/19/2015 Tsh Ord6 hTSH II 1.44 uIU/mL 03/19/2015 Cbc With Differential Ord2 WBC 4.54 K/ul 03/19/2015 Cbc With Differential Ord2 RBC 4.22 M/ul 03/19/2015 Cbc With Differential Ord2 HGB 12.6 g/dl 03/19/2015 Cbc With Differential Ord2 Neut% 58.4 % 03/19/2015 Cbc With Differential Ord2 HCT 37.7 % 03/19/2015 Cbc With Differential Ord2 MCV 89.3 fl 03/19/2015 Cbc With Differential Ord2 Lymph% 33.5 % 03/19/2015 Cbc With Differential Ord2 MCH 29.9 pg 03/19/2015 Cbc With Differential Ord2 Storey% 5.1 % 03/19/2015 Cbc With Differential Ord2 [...] 1.52 K/ul 03/19/2015 Cbc With Differential Ord2 Storey ABS# 0.2 K/ul 03/19/2015 Cbc With Differential Ord2 Eos ABS# 0.1 K/ul 03/19/2015 Cbc With Differential Ord2 Baso ABS# 0.0 K/ul 03/19/2015 Cbc With Differential Ord2 New Analyzer Notice Please note new ref ranges s tarting 02-28-2015 due to implemntation of new five part differential hematolgy analyzer. 03/19/2015 Cbc With Differential Ord2 WBC 4.9 K/uL [...] With Differential Ord2 RDW 13.4 % 09/29/2014 Tsh Ord6 hTSH II 2.92 uIU/mL 09/29/2014 Comp Metabolic Nlk312 NA 139 mEq/L 09/29/2014 Comp Metabolic Cuu911 K 4.1 mEq/L 09/29/2014 Comp Metabolic Viu207 CL 104 mEq/L 09/29/2014 Comp Metabolic Cyw642 CO2 31.0 mEq/L 09/29/2014 Comp Metabolic Iqd858 AN ION GAP 8 09/29/2014 Comp Metabolic Fmj487 GL UCOSE 96 mg/dL 09/29/2014 Comp Metabolic Sbe073 Cr eat 0.8 mg/dL 09/29/2014 Comp Metabolic Smm137 eG FR 71 ml/min/1.73m2 09/29 Comp Metabolic Uck964 BUN 13 mg/dL 09/29/2014 Comp Metabolic Tge953 B/ C Ratio 15.5 Ratio 09/29/2014 Comp Metabolic Zph977 CA LCIUM 9.5 mg/dL 09/29/2014 Comp Metabolic Fws050 AL K PHOS 42 U/L 09/29/2014 Comp Metabolic Vjf462 T(SGOT) 20 U/L 09/29/2014 Comp Metabolic Vdn886 AL T(SGPT) 26 U/L 09/29/2014 Comp Metabolic Qwo439 BI LI T 0.5 mg/dL 09/29/2014 Comp Metabolic Lfy252 AL BUMIN 4.4 g/dL 09/29/2014 Comp Metabolic Mdf175 TP RO 6.5 g/dL 09/29/2014 Comp Metabolic Kbm093 GL OB 2.1 g/dL 09/29/2014 Comp Metabolic Lhj231 A/ G Ratio 2.1 Ratio 09/29/2014 Comp Metabolic Mwf599 Os mo 278 mOsmo 09/29/2014 Lipid Ord30 CHOL 165 mg/dL 09/29/2014 Lipid Ord30 HDL 52.0 mg/dl 09/29/2014 Lipid Ord30 TRIG 128 mg/dL 09/29/2014 Lipid Ord30 LDL 87 mg/dL 09/29/2014 Lipid Ord30 C/HDL 3.2 Ratio 09/29/2014 Review of Systems System Result Effective Dates Constitutional No recent illness 06/19/2016 Constitutional No [...] consistency 11/25/2011 None Full Exam - General 1995 Neck thyroid Overall: nontender 11/24 None Full [...] 11/25/2011 None Full Exam - General 1995 Neck thyroid Overall: normal size 10/2011 None Full Exam - General 1995 Genitourinary [...] time 08/21/2011 None Full Exam - General 1995 [...] retractions 10/14/2010 None Procedures Procedure Codes Date URINALYSIS NONAUTO W /O SCOPE CPT-4: 97438Ipsaitf 11/13/2015 IMMUNIZATION ADMIN CPT-4: 25121Cjgiyrr 11/13/2015 FLU VACC 4 [place] 3 YRS PLUS IM SNOMED CT: 92634220 CPT-4: 67915Nveojpc 11/13/2015 PPPS, SUBSEQ VISIT CPT-4: C1075Iqnwont 10/10/2015 IMMUNIZATION ADMIN CPT-4: 16637Onkkeiz 11/25/2011 Influenza Virus Vacc ine, Split Virus, >3 Yrs, IM CPT-4: 59996Kdysvwt 11/25/2011 ADMIN INFLUENZA VIRU S VAC CPT-4: F1714Rpkifcf 12/19/2010 FLULAVAL VACC, 3 YRS & >, IM CPT-4: Y6624Uhnjoxo 12/19/2010 Vital Signs Date Vital 06/19/2016 Blood Pressure 1: 134/80 Code: 8480-6 BMI: 32.9 Code: 54310-6 Heart Rate 1: 69 bpm Height: 5'3" SpO2: 98% Weight: 186 lbs 03/13/2016 Blood Pressure 1: 118/74 Code: 8480-6 BMI: 32.4 Code: 15044-4 Heart Rate 1: 71 bpm Height: 5'3" SpO2: 96% Weight: 183 lbs 02/22/2016 Blood Pressure 1: 116/64 Code: 8480-6 BMI: 31.5 Code: 03924-1 Heart Rate 1: 71 bpm Height: 5'3" SpO2: 99% Weight: 178 lbs 12/18/2015 Blood Pressure 1: 94/60 Code: 8480-6 BMI: 31.1 Code: 42851-8 Heart Rate 1: 72 bpm Height: 5'3" SpO2: 99% Weight: 175 lbs 8 oz 11/13/2015 Blood Pressure 1: 104/64 Code: 8480-6 BMI: 32.4 Code: 06915-6 Heart Rate 1: 66 bpm Height: 5'3" SpO2: 97% Weight: 183 lbs 10/10/2015 Blood Pressure 1: 112/67 Code: 8480-6 BMI: 32.6 Code: 44521-9 Heart Rate 1: 78 bpm Height: 5'3" SpO2: 97% Weight: 184 lbs 07/23/2015 Blood Pressure 1: 108/64 Code: 8480-6 Blood Pressure 1: 104/64 Code: 8480-6 Heart Rate 1: 70 bpm SpO2: 97% 07/10/2015 Blood Pressure 1: 118/64 Code: 8480-6 BMI: 32.6 Code: 56122-2 Heart Rate 1: 61 bpm Height: 5'3" SpO2: 98% Weight: 184 lbs 06/05/2015 Blood Pressure 1: 164/70 Code: 8480-6 BMI: 32.4 Code: 67965-1 Heart Rate 1: 68 bpm Height: 5'3" SpO2: 97% Weight: 183 lbs 05/01/2015 Blood Pressure 1: 150/78 Code: 8480-6 BMI: 32.4 Code: 78719-3 Heart Rate 1: 87 bpm Height: 5'3" SpO2: 95% Weight: 183 lbs 04/09/2015 Blood Pressure 1: 158/68 Code: 8480-6 BMI: 32.9 Code: 15666-3 Heart Rate 1: 78 bpm Height: 5'3" SpO2: 97% Weight: 186 lbs 03/26/2015 Blood Pressure 1: 140/76 Code: 8480-6 BMI: 33.7 Code: 99841-7 Heart Rate 1: 64 bpm Height: 5'3" SpO2: 98% Weight: 190 lbs 11/17/2014 Blood Pressure 1: 146/80 Code: 8480-6 BMI: 33.5 Code: 37095-0 Heart Rate 1: 60 bpm Height: 5'3" SpO2: 97% Weight: 189 lbs 10/31/2014 Blood Pressure 1: 130/72 Code: 8480-6 BMI: 33.7 Code: 07673-9 Heart Rate 1: 59 bpm Height: 5'3" SpO2: 96% Weight: 190 lbs 09/28/2014 Blood Pressure 1: 130/86 Code: 8480-6 Blood Pressure 1: 130/72 Code: 8480-6 BMI: 33.7 Code: 16688-6 Heart Rate 1: 58 bpm Height: 5'3" SpO2: 97% Weight: 190 lbs 08/31/2014 Blood Pressure 1: 122/84 Code: 8480-6 BMI: 34.0 Code: 51623-1 Height: 5'3" Weight: 192 lbs 05/29/2014 Blood Pressure 1: 120/68 Code: 8480-6 BMI: 33.8 Code: 10151-6 Heart Rate 1: 87 bpm Height: 5'3" SpO2: 97% Weight: 191 lbs 11/29/2013 Blood Pressure 1: 138/76 Code: 8480-6 BMI: 33.8 Code: 76518-5 Heart Rate 1: 68 bpm Height: 5'3" Weight: 191 lbs 10/04/2013 Blood Pressure 1: 140/88 Code: 8480-6 BMI: 33.1 Code: 97043-8 Heart Rate 1: 72 bpm Height: 5'3" Weight: 187 lbs 05/31/2013 Blood Pressure 1: 132/84 Code: 8480-6 Heart Rate 1: 60 bpm Weight: 191 lbs 11/30/2012 Blood Pressure 1: 128/72 Code: 8480-6 BMI: 33.5 Code: 67699-2 Heart Rate 1: 72 bpm Height: 5'3" Weight: 189 lbs 05/31/2012 Blood Pressure 1: 126/66 Code: 8480-6 BMI: 35.1 Code: 10662-0 Heart Rate 1: 72 bpm Height: 5'3" Weight: 198 lbs 11/25/2011 Blood Pressure 1: 156/80 Code: 8480-6 BMI: 34.2 Code: 33940-2 Heart Rate 1: 64 bpm Height: 5'3" Weight: 196 lbs 08/21/2011 Blood Pressure 1: 118/78 Code: 8480-6 Heart Rate 1: 68 bpm Respiratory Rate: 16 bpm Weight: 184 lbs 04/14/2011 Blood Pressure 1: 128/68 Code: 8480-6 BMI: 34.2 Code: 67961-8 Heart Rate 1: 56 bpm Height: 5'3" Respiratory Rate: 20 bpm Weight: 193 lbs 10/14/2010 Blood Pressure 1: 124/72 Code: 8480-6 BMI: 30.9 Code: 28412-2 Heart Rate 1: 60 bpm Height: 5'4" Respiratory Rate: 12 bpm Weight: 180 lbs Functional Status No Functional Status data History of Present Illness Symptom Name Status Resu lt Effective Date Notes hypertension Onset and Resolution ongoing 06/19/2016 None [...] medication 05/01/2015 None Hospital Follow Up _ [facility] er: total right knee replacement 04/09/2015 None [...] dizziness 11/29/2013 1 episode reported last w [place] hypertension Pertinent Findings Denies dyspnea 11/29/2013 None [...] Encounters Encounter Performer Loca tion Codes Date ([id number]) 72479 EST. P ATIENT, LEVEL IV Diagnosis: Essential (primary) hypertension[ICD10: I10] Diagnosis: Primary central sleep apnea[ICD10: G47.31] Diagnosis: Low back pain[ICD10: M54.5] [facility] CPT-4: 53812 06/19/2016 ([id number]) 84148 EST. P ATIENT, LEVEL III Diagnosis: Pain in left shoulder[ICD10: M25.512] Diagnosis: Pain in left upper arm[ICD10: M79.622] Kat Yeung MD, [facility] CPT-4: 66700 03/13/2016 ([id number]) 05771 EST. P ATIENT, LEVEL III Diagnosis: Essential (primary) hypertension[ICD10: I10] Diagnosis: Pain in left shoulder[ICD10: M25.512] Kat Yeung MD, [facility] CPT-4: 98481 02/22/2016 ([id number]) 99663 EST. P ATIENT, LEVEL III Diagnosis: Orthostatic hypotension[ICD10: I95.1] Evelyn Yeung MD, [facility] CPT-4: 30901 12/18/2015 ([id number]) 05021 EST. P ATIENT, LEVEL III Diagnosis: Essential (primary) hypertension[ICD10: I10] Diagnosis: Dysuria[ICD10: R30.0] Diagnosis: VACCIN FOR INFLUENZA[ICD10: Z23] Evelyn Yeung MD, [facility] CPT-4: 58787 11/13/2015 ([id number]) Miscellaneou s no charge Diagnosis: Essential (primary) hypertension[ICD10: I10] Kat Yeung MD, [facility] CPT-4: 04152 07/23/2015 ([id number]) 65274 EST. P ATIENT, LEVEL III Diagnosis: Essential (primary) hypertension[ICD10: I10] [facility] CPT-4: 07958 07/10/2015 ([id number]) 22239 EST. P ATIENT, LEVEL IV Diagnosis: Essential (primary) hypertension[ICD10: I10] Diagnosis: Primary central sleep apnea[ICD10: G47.31] Diagnosis: Anemia, unspecified[ICD10: D64.9] Evelyn Yeung MD, [facility] CPT-4: 99321 06/05/2015 ([id number]) 95870 EST. P ATIENT, LEVEL III Diagnosis: Essential (primary) hypertension[ICD10: I10] [facility] CPT-4: 50063 05/01/2015 [id number] EST. PATIENT, LEVEL III Diagnosis: Pain in right knee[ICD10: M25.561] Diagnosis: Essential (primary) hypertension[ICD10: I10] Diagnosis: Encounter for follow-up examination after completed treatment for conditions other than malignant neoplasm[ICD10: Z09] Fay Yeung MD, [facility] CPT-4: 33210 04/09/2015 ([id number]) 27571 EST. P ATIENT, LEVEL IV Diagnosis: Essential (primary) hypertension[ICD10: I10] Diagnosis: Pain in right knee[ICD10: M25.561] Evelyn Yeung MD, [facility] CPT- 4: 33937 03/26/2015 ([id number]) [id number] EST. P ATIENT, LEVEL III Diagnosis: Left upper quadrant pain[ICD10: R10.12] Diagnosis: Lower abdominal pain, unspecified[ICD10: R10.30] Diagnosis: Recurrent oral aphthae[ICD10: K12.0] Evelyn Yeung MD, [facility] CPT-4: 02550 11/17/2014 ([id number]) [id number] EST. P ATIENT, LEVEL III Diagnosis: Left groin pain[ICD9: 789.09] Evelyn Yeung MD, [facility] CPT-4: 60273 10/31/2014 ([id number]) 44636 EST. P ATIENT, LEVEL IV Diagnosis: ESSENTIAL HYPERTENSION[ICD9: 401.9] Diagnosis: HYPERLIPIDEMIA[ICD9: 272.4] Evelyn Yeung MD, [facility] CPT-4: 09712 09/28/2014 ([id number]) 62330 EST. P ATIENT, LEVEL III Diagnosis: CELLULITIS OF FACE[ICD9: 682.0] Tatiana Yeung MD, [facility] CPT-4: 81849 08/31/2014 ([id number]) 90627 EST. P ATIENT, LEVEL IV Diagnosis: ESSENTIAL HYPERTENSION[ICD9: 401.9] Diagnosis: Hyperlipidemia[ICD9: 272.4] Diagnosis: Reyes's cyst of knee[ICD9: 727.51] Evelyn Yeung MD, [facility] CPT- 4: 84171 05/29/2014 ([id number]) 88106 EST. P ATIENT, LEVEL III Diagnosis: ESSENTIAL HYPERTENSION[ICD9: 401.9] Diagnosis: HYPERLIPIDEMIA[ICD9: 272.4] Evelyn Yeung MD, [facility] CPT-4: 00033 11/29/2013 ([id number]) 53191 EST. P ATIENT, LEVEL III Diagnosis: CELLULITIS OF FACE[ICD9: 682.0] Evelyn Yeung MD [facility] CPT-4: 31407 10/04/2013 ([id number]) 61560 EST. P ATIENT, LEVEL IV Diagnosis: ESSENTIAL HYPERTENSION[SNOMED: 21730562] Diagnosis: HYPERLIPIDEMIA[ICD9: 272.4] Evelyn Yeung MD [facility] CPT-4: 51169 05/31/2013 ([id number]) 32683 EST. P ATIENT, LEVEL III Diagnosis: ESSENTIAL HYPERTENSION[SNOMED: 29493059] Diagnosis: ABN FINDINGS NEC[ICD9: 796.9] Evelyn Yeung MD [facility] CPT-4: 35202 11/30/2012 ([id number]) 55718 EST. P ATIENT, LEVEL IV Diagnosis: ESSENTIAL HYPERTENSION[SNOMED: 31037492] Diagnosis: HYPERLIPIDEMIA[ICD9: 272.4] Diagnosis: Abnormal Pap smear[ICD9: 796.9] Evelyn Yeung MD, [facility] CPT-4: 65984 05/31/2012 ([id number]) 47420 EST. P ATIENT, LEVEL III Diagnosis: Abnormal Pap smear[ICD9: 796.9] Diagnosis: ESSENTIAL HYPERTENSION[SNOMED: 09484720] Evelyn Yeung MD, C CPT-4: 34056 11/25/2011 ([id number]) 67906 EST. 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 P ATIENT, LEVEL IV Diagnosis: ESSENTIAL HYPERTENSION[SNOMED: 36296849] Diagnosis: Hyperlipidemia[ICD9: 272.4] Diagnosis: Annual physical exam[ICD9: V70.0] [facility] CPT-4: 02145 04/14/2011 85141 EST. PATIENT, LEVEL III Diagnosis: ESSENTIAL HYPERTENSION[SNOMED: 92118238] Diagnosis: Dyspareunia, female[ICD9: 625.0] [facility] CPT-4: 95508 10/14/2010 Plan of Care Planned Activity Notes C odes Status Date Visit Plan: Hypertension - well controll ed - continue with current medications, continue with no added salt diet. Pt has been encouraged to exercise daily.The pt has been advised to call the office if there are any acute concerns about change in blood pressure readings at home.Sleep apnea - - continue with use of CPAP - pt has benefit and is tolerating the CPAP.Back pain - continue with supportive care, monitor symptoms. 06/19/2016 Appointment: Evelyn Yeung WPtel: [address] [place], [place] [id number] (15 min) Moderate 06/19/2016 Patient Education: Patient Medication Summary Completed 06/19/2016 Patient Education: Obesity Completed 06/19/2016 Visit Plan: Left shoulder pain-patient h as done rest, ice, and anti inflammatories-shoulder pain persists and causing weakness in left arm-will xray shoulder/humerus and proceed with MRI if indicated-patient verbalized understanding of plan. 03/13/2016 Appointment: Kat Mitchell WPtel: [address] [place], [place] [phone] [place] (15 min) Moderate 03/13/2016 Appointment: Evelyn Yeung [facility]el: [place] [place] (15 min) Moderate 03/13/2016 Patient Education: Patient Medication Summary Completed 03/13/2016 Patient Education: Obesity Completed 03/13/2016 Visit Plan: Hypertension - well controll ed - continue with current medications, continue with no added salt diet. Pt has been encouraged to exercise daily.The pt has been advised to call the office if there are any acute concerns about change in blood pressure readings at home. 02/22/2016 Appointment: aKt Mitchelll: [phone] [phone] [place] (15 min) Moderate 02/22/2016 Patient Education: Patient Medication Summary Completed 02/22/2016 Patient Education: Obesity Completed 02/22/2016 Appointment: Stephen Kat WPtel: [phone] [phone] [place] (30 min) Complex 02/06/2016 Visit Plan: HYPOTENSION - RECOMMENDED PT TO DECREASE THE LISIONPRIL TO 20MG ONE TIME DAILY. 12/18/2015 Appointment: Evelyn Yeung WPtel: [phone] [phone] (15 min) Moderate 12/18/2015 Patient Education: Patient Medication Summary Completed 12/18/2015 Patient Education: Obesity Completed 12/18/2015 Visit Plan: Hypertension - well controll ed - continue with current medications, continue with no added salt diet. Pt has been encouraged to exercise daily.The pt has been advised to call the office if there are any acute concerns about change in blood pressure readings at home. 11/13/2015 Appointment: Evelyn Yeung [facility]Ptel: [phone] [facility] [place] [place] (15 min) Moderate 11/13/2015 Patient Education: Patient Medication Summary Completed 11/13/2015 Patient Education: Obesity Completed 11/13/2015 Care Plan: Urine Culture Pending 11/13/2015 Visit Plan: Medicare Exam - today we dis cussed the patients past history, immunizations, preventative exams/evaluations [...] risk and to maintain independece in the home.Today we discussed the need for the patient to create paperwork for Advanced directives as well as for the patient to provide this office with a copy of her DOPA paperwork for health care surrogate. 2015 Appointment: Kat Mitchell WPtel: [phone] [phone] (30 min) Complex 10/10/2015 Patient Education: Patient Medication Summary Completed 10/10/2015 Patient Education: Obesity Completed 10/10/2015 Appointment: Nurse Visit 07/23/2015 Patient Education: Patient Medication Summary Completed 07/23/2015 Patient Education: Hypertension Completed 07/23/2015 Visit Plan: Hypertension - well controll ed - continue with current medications, continue with no added salt diet. Pt has been encouraged to exercise daily.The pt has been advised to call the office if there are any acute concerns about change in blood pressure readings at home. 07/10/2015 Appointment: Evelyn Yeung WPtel: [phone] [facility] (15 min) Moderate 07/10/2015 Patient Education: Patient Medication Summary Completed 07/10/2015 Patient Education: Obesity Completed 07/10/2015 Visit Plan: Hypertension - uncontrolled - the patient's medications have been modified [...] the office next week for practitioner to review.The pt is to call for acute concerns.Pt to get coated aspirin.Pt to have labs checked todaySleep Apnea - continue with cpap 06/05/2015 Appointment: Evelyn Yeung [facility]Ptel: [phone] [facility] [place] (15 min) Moderate 06/05/2015 Patient Education: Patient Medication Summary Completed 06/05/2015 Patient Education: Obesity Completed 06/05/2015 Visit Plan: Hypertension - well controll ed - continue with current medications, continue with no added salt diet. Pt has been encouraged to exercise daily.The pt has been advised to call the office if there are any acute concerns about change in blood pressure readings at home. 05/01/2015 Patient Education: Patient Medication Summary Completed 05/01/2015 Patient Education: Obesity Completed 05/01/2015 Patient Education: Hypertension Completed 05/01/2015 Visit Plan: Total Right knee - pt is her e for a follow up from having surgery [...] notify clinic with any questions or concerns. 2015 Appointment: (30 min) Complex 04/09/2015 Patient Education: Patient Medication Summary Completed 04/09/2015 Patient Education: Hypertension Completed 04/09/2015 Appointment: Evelyn Yeung WPtel: [place] [place] (15 min) Moderate 03/29/2015 Visit Plan: Hypertension - well controll ed - continue with current medications, continue with no added salt diet. Pt has been encouraged to exercise daily.The pt has been advised to call the office if there are any acute concerns about change in blood pressure readings at home.Knee pain - pt to have surgery tomorrow. Pt will need therapy as outpatient. 03/26/2015 Patient Education: Patient Medication Summary Completed 03/26/2015 Patient Education: Hypertension Completed 03/26/2015 Visit Plan: Oral aphthae-start acyclovir Abdominal pain-LUQ and LLQ-schedule abdominal ultrasound 11/17/2014 Appointment: (15 min) Moderate 11/17/2014 Patient Education: Patient Medication Summary Completed 11/17/2014 Visit Plan: Left groin pain-Dr Yeung in to evaluate patient-no palpable abnormality today in the office-recommend muscle rub to area and heat-call if pain does not resolve or if any worse. Patient verbalized understanding of plan. 10/31/2014 Patient Education: Patient Medication Summary Completed 10/31/2014 Visit Plan: Hypertension - well controll ed - continue with current medications, continue with no added salt diet. Pt has been encouraged to exercise daily.The pt has been advised to call the office if there are any acute concerns about change in blood pressure readings at home.Hyperlipidemia - pt has been counseled about appropriate [...] medications. 09/28/2014 Appointment: Evelyn Yeung WPtel: [phone] [facility] [place] Follow up 09/28/2014 Patient Education: Patient Medication Summary Completed 09/28/2014 Patient Education: Hypertension Completed 09/28/2014 Care Plan: COMPLETE CBC AUTOMATED LOINC : 96633-7 Ordered 09/28/2014 Visit Plan: Cellulitis - RX to pt's tammy morales. Return to clinic or call for acute change in symptoms, worsening redness, warmth, discharge. 2014 Patient Education: Patient Medication Summary Completed 08/31/2014 Visit Plan: Hypertension - well controll ed - continue with current medications, continue with no added salt diet. Pt has been encouraged to exercise daily.The pt has been advised to call the office if there are any acute concerns about change in blood pressure readings at home.Hyperlipidemia - pt has been counseled about appropriate [...] and to assure normal liver response to medications.Bakers cyst of knee - recommended to stop hyper-extending the knee at night when she sleeps - need to try to sleep on right or left side or back, support knee at night when at rest. 05/29/2014 Appointment: Evelyn Yeung WPtel: [phone] [facility] [place] Follow up 05/29/2014 Patient Education: Patient Medication Summary Completed 05/29/2014 Patient Education: Hypertension Completed 05/29/2014 Visit Plan: Hypertension - well controll ed - continue with current medications, continue with no added salt diet. Pt has been encouraged to exercise daily.The pt has been advised to call the office if there are any acute concerns about change in blood pressure readings at home.Hyperlipidemia - pt has been counseled about appropriate [...] to medications. 11/29/2013 Appointment: Evelyn Yeung WPtel: [address] [place], [place] [phone] Follow up 11/29/2013 Patient Education: Patient Medication Summary Completed 11/29/2013 Patient Education: Hypertension Completed 11/29/2013 Care Plan: COMPLETE CBC AUTOMATED LOINC : 75557-1 Ordered 11/29/2013 Visit Plan: Cellulitis - continue with o ral antibiotics as previously directed, return to clinic as previously directed, call for acute change in symptoms, worsening redness, warmth, discharge. 10/04/2013 Appointment: Evelyn Yeung WPtel: [address] [place], [place] [phone] [facility] 10/04/2013 Patient Education: Patient Medication Summary Completed 10/04/2013 Visit Plan: Hypertension - well controll ed - continue with current medications, continue with no added salt diet. Pt has been encouraged to exercise daily.The pt has been advised to call the [...] and to assure normal liver response to medications.Check labs in May and agaiin in 6 months 05/31/2013 Appointment: Evelyn Yeung WPtel: [phone] [facility] [place] [place] Follow up 05/31/2013 Patient Education: Patient Medication Summary Completed 05/31/2013 Patient Education: Hypertension Completed 05/31/2013 Visit Plan: Hypertension - well controll ed - continue with current medications, continue with no added salt diet. Pt has been encouraged to exercise daily.The pt has been advised to call the office if there are any acute concerns about change in blood pressure readings at home.Improved granulation tissue in vaginal tissue - no need for repeat exam until 2 years. 11/30/2012 Appointment: Evelyn Yeung WPtel: [phone] [facility] [place] [place] Pap Only 11/30/2012 Patient Education: Patient Medication Summary Completed 11/30/2012 Patient Education: Hypertension Completed 11/30/2012 Visit Plan: Hypertension - well controll ed - continue with current medications, continue with no added salt diet. Pt has been encouraged to exercise daily.The pt has been advised to call the [...] and to assure normal liver response to medications.Abnormal papsmear in August of 2011 - recommended repeat pap to document stability from November of 2011. 05/31/2012 Appointment: Evelyn Yeung WPtel: [phone] [facility] [place] [place] Pap Only 05/31/2012 Patient Education: Patient Medication Summary Completed 05/31/2012 Patient Education: Hypertension Completed 05/31/2012 Visit Plan: Abnormal pap- repeat pap com pleted, will call pt with results. Hypertension - well controlled at home pt to- continue with current medications, continue with no added salt diet. Pt has been encouraged to exercise daily.The pt has been advised to call the office if there are any acute concerns about change in blood pressure readings at home. 11/25/2011 Appointment: Evelyn Yeung WPtel: [phone] [facility] [place] [place] Pap Only 11/25/2011 Patient Education: Patient Medication Summary Completed 11/25/2011 Patient Education: High Blood Pressure: Essential Hypertension Completed 11/25/2011 Appointment: Alonso Yeungy WPtel: [place] [place] [place] Pap Only 09/01/2011 Appointment: Alonso Yeungy WPtel: [place] [place] [place] Pap Only 08/26/2011 Visit Plan: Hypertension - well controll ed - continue with current medications, continue with no added salt diet. Pt has been encouraged to exercise daily.The pt has been advised to call the office if there are any acute concerns about change in blood pressure readings at home.Repeat pap obtained today - will call pt with report, if negative, will have another repeat pap in 6 months, if negative, then resume yearly paps.Hot flashes - pt is not using the premarin vaginal cream as directed, she often skips weeks. Pt was instructed to increase the premarin to twice weekly and informed of the increased risk of not taking the medications as directed.pt will call if the increase in the premarin has not improved her hot flashes. 08/21/2011 Appointment: Evelyn Yeung WPtel: [place] [place] [place] Pap Only 08/21/2011 Patient Education: Patient Medication Summary Completed 08/21/2011 Patient Education: High Blood Pressure: Essential Hypertension Completed 08/21/2011 Appointment: Evelyn Yeung WPtel: [phone] [facility] [place] [place] Other 04/16/2011 Visit Plan: Hypertension - well controll ed - continue with current medications, continue with no added salt diet. Pt has been encouraged to exercise daily.The pt has been advised to call the [...] or prn. 04/14/2011 Appointment: Evelyn Yeung WPtel: [phone] [facility] Pap Only 04/14/2011 Patient Education: Patient Medication Summary Completed 04/14/2011 Patient Education: High Blood Pressure: Essential Hypertension Completed 04/14/2011 Appointment: Evelyn Yeung WPtel: [phone] [facility] [place] [place] Injection 12/19/2010 Patient Education: Patient Medication Summary Completed 12/19/2010 Visit Plan: Hypertension - well controll ed - continue with current medications, continue with no added salt diet. Pt has been encouraged to exercise daily.The pt has been advised to call the office if there are any acute concerns about change in blood pressure readings at home.Pain with intercourse- advised TREVA mabry to decrease discomfort. 10/14/2010 Appointment: Evelyn Yenug WPtel: [phone] [facility] [facility] 10/14/[facility] Patient Education: Patient Medication Summary Completed [...] to medications. Check labs in May and iin in 6 months . Hypertension - wel l controlled - continue with current medications, continue with no added salt diet. Pt has been encouraged to exercise daily. The pt has been advised to call the office if there are any acute concerns about change in blood pressure readings at home. Knee pain - pt to have surgery tomorrow. Pt will need therapy as outpatient. Heat to left groin Muscle rub to area Call if pain worsens . Left groin pain-Dr Yeung in to julio castellanos patient-no palpable abnormality today in the office-recommend muscle rub to area and heat-call if pain does not resolve or if any worse. Patient verbalized understanding of plan. . Hypertension - [...] document stability from November of 2011. . Hypertension - wel l controlled - [...] continue with supportive care, monitor symptoms. . Medicare Exam - to day we [...] knee at night when at rest. . Total Right knee - pt is [...] notify clinic with any questions or concerns. CHANGE LISINOPRIL TO 1/2 OF THE 40MG [...] premarin has not improved her hot flashes. ALEVE 2 TABS TWICE D AILY WITH [...] RTC yearly or prn. . Hypertension - unc ontrolled - the [...] Abdominal pain-LUQ and LLQ-schedule abdominal ultrasound . Cellulitis - jorden nue with oral antibiotics as previously directed, return to clinic as previously directed, call for acute change in symptoms, worsening redness, warmth, discharge.
--- OUTSIDE RECORDS SUMMARY | 2019-07-08 08:16 | XMS REPORT | CCD ---
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 10/14/[address]: [id number] Never smoker 10/14/[address]: 845482326 Never drinks alcohol 10/14/2010 Has the patient [...] ICD-9: 461.8 ICD-10: J01.80 Active 04/24/2017 Unknown Other allergic rhinitis ICD-9: 477.8 ICD-10: J30.89 Active 04/24/2017 Unknown Rash and other nonsp [...] sinusitis ICD-9: 461.8 ICD-10: J01.80 04/24/2017 Active Other allergic rhinitis ICD-9: 477.8 ICD-10: J30.89 04/24/2017 Active Rash and other nonsp ecific [...] Date Stop Date Sta tus Fill Instructions metoprolol succinate ER 50 mg tablet,extended release 24 hr RxNorm: 419748 Tablet(s) TAKE 1 TABLET TWICE DAILY 05/27/2018 06/25/2018 Active metoprolol succinate ER 50 mg tablet,extended release 24 hr RxNorm: 292246 Tablet(s) TAKE 1 TABLET TWICE DAILY 05/25/2018 05/26/2018 Inactive potassium chloride E R 10 mEq capsule,extended release RxNorm: 948585 1 Capsule(s) PO TIW TAKE 1 CAPSULE THREE TIMES WEEKLY 04/23/2018 04/17/2019 Active three times weekly- sent on 04/21/18- requested again 04/23/18 potassium chloride E R 10 mEq capsule,extended release RxNorm: 188666 1 Capsule(s) PO TIW TAKE 1 CAPSULE THREE TIMES WEEKLY 04/21/2018 04/22/2018 Inactive thre e times weekly chlorthalidone 25 mg tablet RxNorm: 096123 Tablet(s) TAKE 1 TABL ET EVERY MORNING 03/26/2018 03/20/2019 Ac tive simvastatin 20 mg ta blet RxNorm: 361015 Tablet(s) TAKE 1 TABL ET EVERY NIGHT 03/26/2018 03/20/2019 Ac tive lisinopril 20 mg tablet RxNorm: 174614 1 Tablet(s) PO daily 02/11/2018 05/06/2019 Active this is an update on her RX - she is onl y taking 20mg daily -please delete other rx's lisinopril 20 mg tablet RxNorm: 636247 1 Tablet(s) PO daily 11/20/2017 02/10/2018 Inactive lisinopril 40 mg tablet RxNorm: 734903 Tablet(s) TAKE 1 TABLET EVERY DAY 11/16/2017 11/19/2017 In active metoprolol succinate ER 50 mg tablet,extended release 24 hr RxNorm: 514851 Tablet(s) TAKE 1 TABLET TWICE DAILY 06/05/2017 05/24/2018 Inactive metoprolol succinate ER 50 mg tablet,extended release 24 hr RxNorm: 237558 Tablet(s) TAKE 1 TABLET TWICE DAILY 06/05/2017 06/04/2017 Inactive potassium chloride E R 10 mEq capsule,extended release RxNorm: 919813 1 Capsule(s) PO TIW TAKE 1 CAPSULE THREE TIMES WEEKLY 05/07/2017 04/20/2018 Inactive thre e times weekly potassium chloride E R 10 mEq capsule,extended release RxNorm: 165355 1 Capsule(s) PO daily TAKE 1 CAPSULE THREE TIMES WEEKLY 05/05/2017 05/06/2017 Inactive metoprolol succinate ER 50 mg tablet,extended release 24 hr RxNorm: 079725 Tablet(s) TAKE 1 TABLET TWICE DAILY 05/04/2017 06/04/2017 Inactive Phenergan with Codei ne Syrup RxNorm: 5-10 Milliliter(s) PO QID a s needed cough 05/01/2017 No Stop Date Active cefdinir 300 mg capsule RxNorm: 737937 1 Capsule(s) PO BID 05/01/2017 05/07/2017 Inactive Zithromax Z-Doroteo 250 mg tablet RxNorm: 091737 1 Tablet(s) PO UD 04/24/2017 06/22/2017 Inactive Phenergan with Codei ne Syrup RxNorm: 5-10 Milliliter(s) PO QID a s needed cough 04/24/2017 04/30/2017 In active prednisone 20 mg tablet RxNorm: 285539 2 Tablet(s) PO daily 04/24/2017 04/28/2017 Inactive chlorthalidone 25 mg tablet RxNorm: 037103 Tablet(s) TAKE 1 TABL ET EVERY MORNING 04/13/2017 03/25/2018 In active simvastatin 20 mg ta blet RxNorm: 975302 Tablet(s) TAKE 1 TABL ET EVERY NIGHT 04/08/2017 03/25/2018 In active Kenalog 40 mg/mL wander pension for injection RxNorm: 7826165 1 Milliliter(s) Inj 03/11/2017 03/11/2017 In active prednisone 20 mg tablet RxNorm: 576713 2 Tablet(s) PO daily 03/11/2017 03/15/2017 Inactive simvastatin 20 mg ta blet RxNorm: 937667 TAKE 1 TABLET EVERY DAY 01/02/2017 04/07/2017 Inactive lisinopril 40 mg tablet RxNorm: 686855 TAKE 1 TABLET EVERY DAY 11/24/2016 08/20/2017 Inactive metoprolol succinate ER 50 mg tablet,extended release 24 hr RxNorm: 844052 TAKE 1 TABLET TWICE DAILY 11/24/2016 05/03/2017 Inactive fluconazole 150 mg t ablet RxNorm: 913468 1 Tablet(s) PO daily prn yeast infection symptoms 10/16/2016 10/25/2016 Inactive potassium chloride E R 10 mEq capsule,extended release RxNorm: 142568 TAKE 1 CAPSULE THREE TIMES WEEKLY 08/12/2016 05/04/2017 Inactive chlorthalidone 25 mg tablet RxNorm: 577810 TAKE 1 TABLET EVERY M ORNING 06/30/2016 04/12/2017 In active simvastatin 20 mg ta blet RxNorm: 147637 TAKE 1 TABLET EVERY DAY 01/21/2016 01/01/2017 Inactive lisinopril 40 mg tablet RxNorm: 660614 1/2 Tablet(s) daily 12/18/2015 11/23/2016 Inactive metoprolol succinate ER 50 mg tablet,extended release 24 hr RxNorm: 909123 Tablet(s) TAKE 1 TABLET TWICE DAILY 12/13/2015 11/23/2016 Inactive metoprolol succinate ER 50 mg tablet,extended release 24 hr RxNorm: 821991 Tablet(s) TAKE 1 TABLET TWICE DAILY 12/13/2015 12/12/2015 Inactive metoprolol succinate ER 50 mg tablet,extended release 24 hr RxNorm: 219187 Tablet(s) TAKE 1 TABLET TWICE DAILY 11/13/2015 12/12/2015 Inactive Keflex 500 mg capsule RxNorm: 031990 1 Capsule(s) PO TID 11/13/2015 11/19/2015 Inactive chlorthalidone 25 mg tablet RxNorm: 938395 1 Tablet(s) PO QAM 08/08/2015 06/29/2016 Inactive potassium chloride E R 10 mEq capsule,extended release RxNorm: 085683 1 Capsule(s) PO TIW 08/08/2015 08/01/2016 Inactive potassium chloride E R 10 mEq capsule,extended release RxNorm: 852501 1 Capsule(s) PO TIW 06/20/2015 08/07/2015 Inactive lisinopril 40 mg tablet RxNorm: 300656 TAKE 1 TABLET EVERY DAY 2015 12/17/2015 Inactive potassium chloride E R 10 mEq capsule,extended release RxNorm: 185671 1 Capsule(s) PO TIW 2015 06/19/2015 Inactive chlorthalidone 25 mg tablet RxNorm: 025177 1 Tablet(s) PO QAM 06/05/2015 08/07/2015 Inactive potassium chloride E R 10 mEq capsule,extended release RxNorm: 909112 1 Capsule(s) PO TIW 06/05/2015 06/17/2015 Inactive lisinopril 40 mg tablet RxNorm: 008864 1/2 Tablet(s) PO BID 05/07/2015 06/17/2015 Inactive amoxicillin 500 mg t ablet RxNorm: 050008 4 Tablet(s) PO one ho ur prior to dental appts UD 05/07/2015 10/08/2015 Inactive amoxicillin 500 mg t ablet RxNorm: 350850 4 Tablet(s) PO one ho ur prior to dental appts UD 05/04/2015 05/06/2015 Inactive lisinopril 40 mg tablet RxNorm: 893945 1/2 Tablet(s) PO BID 05/04/2015 05/06/2015 Inactive amoxicillin 500 mg t ablet RxNorm: 643897 4 Tablet(s) PO one ho ur prior to dental appts UD 05/01/2015 05/03/2015 Inactive lisinopril 40 mg tablet RxNorm: 435971 1/2 Tablet(s) PO BID TAKE 1 TABLET DAILY 05/01/2015 05/03/2015 In active metoprolol succinate ER 50 mg tablet,extended release 24 hr RxNorm: 390956 TAKE 1 AND 1/2 TABLETS TWICE DAILY 04/16/2015 11/12/2015 Inactive simvastatin 20 mg ta blet RxNorm: 309398 TAKE 1 TABLET EVERY DAY 04/16/2015 01/10/2016 Inactive acyclovir 800 mg tablet RxNorm: 807331 1 Tablet(s) PO TID 11/17/2014 11/26/2014 Inactive acyclovir 400 mg tablet RxNorm: 392923 2 Tablet(s) PO QID 10/06/2014 10/05/2014 Inactive acyclovir 400 mg tablet RxNorm: 313286 2 Tablet(s) PO QID 10/06/2014 10/15/2014 Inactive cephalexin 500 mg ca psule RxNorm: 607971 1 Capsule(s) PO TID 08/31/2014 09/04/2014 Inactive Bactroban 2 % topica l ointment RxNorm: 716974 1 Application TOP BID 08/31/2014 10/08/2015 Inactive Bactroban 2 % topica l ointment RxNorm: 346743 1 Application TOP BID 08/31/2014 09/04/2014 Inactive simvastatin 20 mg ta blet RxNorm: 257633 Tablet(s) TAKE 1 TABL ET DAILY 03/31/2014 04/15/2015 In active lisinopril 40 mg tablet RxNorm: 048857 Tablet(s) TAKE 1 TABLET DAILY 03/31/2014 04/30/2015 In active metoprolol succinate ER 50 mg tablet,extended release 24 hr RxNorm: 096071 Tablet(s) TAKE ONE AND ONE-HALF TABLETS (75 MG) TWICE A DAY 03/09/2014 04/15/2015 Inactive Prio r authorization approved for this med until 03-09-2015 metoprolol succinate ER 50 mg tablet,extended release 24 hr RxNorm: 548094 Tablet(s) TAKE ONE AND ONE-HALF TABLETS (75 MG) TWICE A DAY 03/06/2014 03/08/2014 Inactive simvastatin 20 mg ta blet RxNorm: 737214 TAKE 1 TABLET DAILY 01/24/2014 03/30/2014 Inactive lisinopril 40 mg tablet RxNorm: 768002 TAKE 1 TABLET DAILY 01/24/2014 03/30/2014 Inactive simvastatin 20 mg ta blet RxNorm: 715082 TAKE 1 TABLET DAILY 10/24/2013 01/23/2014 Inactive cephalexin 500 mg ca psule RxNorm: 987715 1 Capsule(s) PO TID 10/04/2013 10/08/2013 Inactive metoprolol succinate ER 50 mg tablet,extended release 24 hr RxNorm: 702229 TAKE ONE AND ONE-HALF TABLETS (75 MG) TWICE A DAY 09/16/2013 03/05/2014 Inactive simvastatin 20 mg ta blet RxNorm: 658337 Tablet(s) PO TAKE 1 T ABLET DAILY 04/21/2013 10/23/2013 In active metoprolol succinate ER 50 mg tablet,extended release 24 hr RxNorm: 164633 Tablet(s) PO TAKE ONE AND ONE-HALF TABLETS (75 MG) TWICE A DAY 03/24/2013 09/15/2013 Inactive metoprolol succinate ER 50 mg tablet,extended release 24 hr RxNorm: 462828 Tablet(s) PO TAKE ONE AND ONE-HALF TABLETS (75 MG) TWICE A DAY 12/20/2012 03/23/2013 Inactive lisinopril 40 mg tablet RxNorm: 890046 Tablet(s) PO TAKE 1 TABLET DAILY 11/18/2012 01/23/2014 In active simvastatin 20 mg ta blet RxNorm: 157548 Tablet(s) PO TAKE 1 T ABLET DAILY 08/06/2012 04/20/2013 In active metoprolol succinate ER 50 mg tablet,extended release 24 hr RxNorm: 682176 Tablet(s) PO TAKE ONE AND ONE-HALF TABLETS (75 MG) TWICE A DAY 06/15/2012 12/19/2012 Inactive metoprolol succinate ER 50 mg tablet,extended release 24 hr RxNorm: 636508 Tablet(s) PO TAKE ONE AND ONE-HALF TABLETS (75 MG) TWICE A DAY 03/01/2012 06/14/2012 Inactive Diflucan 150 mg tablet RxNorm: 199174 1 Tablet(s) PO daily 12/03/2011 12/02/2011 Inactive Diflucan 150 mg tablet RxNorm: 915218 1 Tablet(s) PO daily 12/03/2011 12/07/2011 Inactive Diflucan 150 mg tablet RxNorm: 832149 1 Tablet(s) PO daily 12/03/2011 12/02/2011 Inactive Influenza Virus Vacc ine 0.5 mL RxNorm: IM 11/25/2011 11/25/2011 Inactive metoprolol succinate ER 50 mg tablet,extended release 24 hr RxNorm: 747534 Tablet(s) PO 09/16/2011 02/29/2012 Inactive TAKE ONE AND ONE-HALF TABLETS (75 MG) TW ICE A DAY lisinopril 40 mg tablet RxNorm: 569999 Tablet(s) PO 08/25/2011 11/17/2012 Inactive TAKE 1 TABLET DAILY simvastatin 20 mg ta blet RxNorm: 305612 Tablet(s) PO 07/31/2011 08/05/2012 Inactive TAKE 1 TABLET DAILY Influenza Virus Vacc ine 0.5 mL RxNorm: 1/2 Milliliter(s) IM 12/19/2010 12/19/2010 Inactive metoprolol succinate ER 50 mg tablet,extended release 24 hr RxNorm: 612753 Tablet(s) PO 12/02/2010 09/15/2011 Inactive TAKE ONE AND ONE-HALF TABLETS (75 MG) TW ICE A DAY Calcium 600 + D(3) 6 00 mg (1,500 mg)-400 unit Tab RxNorm: 702696 1 Tablet(s) PO daily No Start Date Active Tylenol PM Extra Str ength 25 mg-500 mg Tab RxNorm: 2448084 1 Tablet(s) PO QHS No Start Date Active Probiotic & Acidophi lesa oral RxNorm: oral No Start D ate Active Fish Oil 1,200 mg-14 4 mg-216 mg Cap RxNorm: 1 Capsule(s) PO BID No Start Date Active 1400mg multivitamin Cap RxNorm: 1 Capsule(s) PO daily No Start Date Active Aspirin Childrens 81 mg Chewable Tab RxNorm: 513449 1 Tablet(s) PO daily No Start Date Active premarin 0.5% Vagina l cream RxNorm: [address] art Date 08/30/2014 Inactive simvastatin 20 mg Tab RxNorm: 051195 1 Tablet(s) PO daily No Start Date 07/30/2011 Inactive lisinopril 40 mg Tab RxNorm: 251306 1 Tablet(s) PO daily No Start Date 08/24/2011 Inactive Fish Oil 340 mg-1,00 0 mg Cap RxNorm: 1 Capsule(s) PO TID No Start Date 04/14/2011 Inactive [place] 20 mg Tab RxNorm: 712414 1 Tablet(s) PO daily No Start Date 04/14/2011 Inactive metoprolol succinate ER 50 mg 24 hr Tab RxNorm: 740172 1 &1/2 Tablet(s) PO d aily No Start Date 12/01/2010 Inactive Medication Administered Medication Codes Instruc tions Start Date Status Kenalog 40 mg/mL suspension for injection RxNorm: 6474160 1Milliliter 03/11/2017 N o longer Active Influenza Virus Vaccine 0.5 mL RxNorm: 11/25/2011 No longer Active Influenza Virus Vaccine 0.5 mL RxNorm: 1/2Milliliter 12/19/2010 No longer Active Immunizations Vaccine Codes Date Status Influenza CVX: 141 10/23 completed Influenza CVX: 141 12/09 completed Influenza CVX: 141 11/12 completed Influenza CVX: 141 11/24 completed Influenza CVX: 141 12/19 completed Assessments Condition Codes Effectiv e Dates Obstructive sleep apnea (adult) (pediatric) ICD-10: G47.33 [...] ICD-10 : J20.9 ICD-9: 466.0 05/01/2017 Other allergic rhinitis ICD-10: J30. 89 ICD-9: 477.8 05/01/2017 Other acute sinusitis ICD-10: J01.80 ICD-9: [...] Reason For Visit Effective Dates Notes hypertension 02/11/2018 skin lesion 10/23/2017 foot pain [...] 30.2 pg 10/17/2016 Cbc With Differential Ord2 [place]% 6.3 % 10/17/2016 Cbc With Differential Ord2 [...] 1.37 K/ul 10/17/2016 Cbc With Differential Ord2 [place] ABS# 0.3 K/ul 10/17/2016 Cbc With Differential Ord2 Eos ABS# 0.2 K/ul 10/17/2016 Cbc With Differential Ord2 Baso ABS# 0.0 K/ul 10/17/2016 Comp Metabolic Fvg543 NA 141 mEq/L 10/17/2016 Comp Metabolic Ryg282 K 3.9 mEq/L 10/17/2016 Comp Metabolic Phl355 CL 105 mEq/L 10/17/2016 Comp Metabolic Lpd761 CO2 26.0 mEq/L 10/17/2016 Comp Metabolic Tfi054 AN ION GAP 14 10/17/2016 Comp Metabolic Ero967 GL UCOSE 100 mg/dL 10/17/2016 Comp Metabolic Lua271 Cr eat 1.0 mg/dL 10/17/2016 Comp Metabolic Crs205 eG FR 61 ml/min/1.73m2 10/17 Comp Metabolic Egn039 BUN 17 mg/dL 10/17/2016 Comp Metabolic Reh378 B/ C Ratio 17.7 Ratio 10/17/2016 Comp Metabolic Rsa580 CA LCIUM 9.8 mg/dL 10/17/2016 Comp Metabolic Bfe779 AL K PHOS 44 U/L 10/17/2016 Comp Metabolic Hmx067 T(SGOT) 15 U/L 10/17/2016 Comp Metabolic Adw385 AL T(SGPT) 16 U/L 10/17/2016 Comp Metabolic Evt502 BI LI T 0.5 mg/dL 10/17/2016 Comp Metabolic Sjz690 AL BUMIN 4.3 g/dL 10/17/2016 Comp Metabolic Oly565 TP RO 6.5 g/dL 10/17/2016 Comp Metabolic Hzx129 GL OB 2.3 g/dL 10/17/2016 Comp Metabolic Cvy622 A/ G Ratio 1.9 Ratio 10/17/2016 Comp Metabolic Ikc447 Os mo 283 mOsmo 10/17/2016 Lipid Ord30 CHOL 134 mg/dL 10/17/2016 Lipid Ord30 HDL 48.0 mg/dl 10/17/2016 Lipid Ord30 TRIG 123 mg/dL 10/17/2016 Lipid Ord30 LDL 61 mg/dL 10/17/2016 Lipid Ord30 C/HDL 2.8 Ratio 10/17/2016 Comp Metabolic Sku491 NA 140 mEq/L 02/28/2016 Comp Metabolic Kob069 K 3.9 mEq/L 02/28/2016 Comp Metabolic Djb542 CL 102 mEq/L 02/28/2016 Comp Metabolic Xrc269 CO2 31.0 mEq/L 02/28/2016 Comp Metabolic Uth318 AN ION GAP 11 02/28/2016 Comp Metabolic Vcz105 GL UCOSE 87 mg/dL 02/28/2016 Comp Metabolic Vwt461 Cr eat 1.2 mg/dL 02/28/2016 Comp Metabolic Tnr670 eG FR 45 ml/min/1.73m2 02/27 Comp Metabolic Grf128 BUN 23 mg/dL 02/28/2016 Comp Metabolic Vsw369 B/ C Ratio 18.5 Ratio 02/28/2016 Comp Metabolic Lng040 CA LCIUM 9.2 mg/dL 02/28/2016 Comp Metabolic Mjs913 AL K PHOS 53 U/L 02/28/2016 Comp Metabolic Pgx007 T(SGOT) 16 U/L 02/28/2016 Comp Metabolic Fpy815 AL T(SGPT) 17 U/L 02/28/2016 Comp Metabolic Ver942 BI LI T 0.5 mg/dL 02/28/2016 Comp Metabolic Auy191 AL BUMIN 4.2 g/dL 02/28/2016 Comp Metabolic Bgn632 TP RO 6.7 g/dL 02/28/2016 Comp Metabolic Vof704 GL OB 2.5 g/dL 02/28/2016 Comp Metabolic Rhc983 A/ G Ratio 1.7 Ratio 02/28/2016 Comp Metabolic Bzk146 Os mo 282 mOsmo 02/28/2016 Cbc With [...] 30.5 pg 02/28/2016 Cbc With Differential Ord2 [place]% 5.6 % 02/28/2016 Cbc With Differential Ord2 [...] 1.21 K/ul 02/28/2016 Cbc With Differential Ord2 [place] ABS# 0.3 K/ul 02/28/2016 Cbc With Differential Ord2 Eos ABS# 0.2 K/ul 02/28/2016 Cbc With Differential Ord2 Baso ABS# 0.0 K/ul 02/28/2016 Lipid Ord30 CHOL 141 mg/dL 02/28/2016 Lipid Ord30 HDL 48.0 mg/dl 02/28/2016 Lipid Ord30 TRIG 144 mg/dL 02/28/2016 Lipid Ord30 LDL 64 mg/dL 02/28/2016 Lipid Ord30 C/HDL 2.9 Ratio 02/28/2016 Tsh Ord6 hTSH II 2.22 uIU/mL 02/28/2016 Culture Urine [id number] URI NE CULTURE SEE NOTES 11/15/2015 Urine [...] Ord30 C/HDL 2.7 Ratio 03/19/2015 Comp Metabolic Ohr668 NA 139 mEq/L 03/19/2015 Comp Metabolic Brc555 K 4.0 mEq/L 03/19/2015 Comp Metabolic Yhc688 CL 105 mEq/L 03/19/2015 Comp Metabolic Jsw274 CO2 29.0 mEq/L 03/19/2015 Comp Metabolic Fkd901 AN ION GAP 9 03/19/2015 Comp Metabolic Ywz594 GL UCOSE 90 mg/dL 03/19/2015 Comp Metabolic Xqo564 Cr eat 0.8 mg/dL 03/19/2015 Comp Metabolic Qoq834 eG FR 80 ml/min/1.73m2 03/19 Comp Metabolic Ygj168 BUN 14 mg/dL 03/19/2015 Comp Metabolic Dhr156 B/ C Ratio 18.4 Ratio 03/19/2015 Comp Metabolic Zlk705 CA LCIUM 9.5 mg/dL 03/19/2015 Comp Metabolic Hwf441 AL K PHOS 39 U/L 03/19/2015 Comp Metabolic Rqx804 T(SGOT) 17 U/L 03/19/2015 Comp Metabolic Ukk764 AL T(SGPT) 22 U/L 03/19/2015 Comp Metabolic Bdj612 BI LI T 0.5 mg/dL 03/19/2015 Comp Metabolic Izb073 AL BUMIN 4.2 g/dL 03/19/2015 Comp Metabolic Ppq459 TP RO 6.3 g/dL 03/19/2015 Comp Metabolic Cyh008 GL OB 2.1 g/dL 03/19/2015 Comp Metabolic Dah854 A/ G Ratio 2.0 Ratio 03/19/2015 Comp Metabolic Onv784 Os mo 278 mOsmo 03/19/2015 Tsh Ord6 [...] 29.9 pg 03/19/2015 Cbc With Differential Ord2 [place]% 5.1 % 03/19/2015 Cbc With Differential Ord2 [...] 1.52 K/ul 03/19/2015 Cbc With Differential Ord2 [place] ABS# 0.2 K/ul 03/19/2015 Cbc With Differential [...] Ord30 C/HDL 3.2 Ratio 09/29/2014 Comp Metabolic Jau507 NA 139 mEq/L 09/29/2014 Comp Metabolic Vox774 K 4.1 mEq/L 09/29/2014 Comp Metabolic Xxn333 CL 104 mEq/L 09/29/2014 Comp Metabolic Mno294 CO2 31.0 mEq/L 09/29/2014 Comp Metabolic Gsm552 AN ION GAP 8 09/29/2014 Comp Metabolic Mdx924 GL UCOSE 96 mg/dL 09/29/2014 Comp Metabolic Qpi187 Cr eat 0.8 mg/dL 09/29/2014 Comp Metabolic Kso022 eG FR 71 ml/min/1.73m2 09/29 Comp Metabolic Lnp352 BUN 13 mg/dL 09/29/2014 Comp Metabolic Koz140 B/ C Ratio 15.5 Ratio 09/29/2014 Comp Metabolic Qlm738 CA LCIUM 9.5 mg/dL 09/29/2014 Comp Metabolic Xgl791 AL K PHOS 42 U/L 09/29/2014 Comp Metabolic Zpd047 T(SGOT) 20 U/L 09/29/2014 Comp Metabolic Zbv665 AL T(SGPT) 26 U/L 09/29/2014 Comp Metabolic Gjh138 BI LI T 0.5 mg/dL 09/29/2014 Comp Metabolic Qul845 AL BUMIN 4.4 g/dL 09/29/2014 Comp Metabolic Jrp252 TP RO 6.5 g/dL 09/29/2014 Comp Metabolic Xlw444 GL OB 2.1 g/dL 09/29/2014 Comp Metabolic Uka914 A/ G Ratio 2.1 Ratio 09/29/2014 Comp Metabolic Vvc734 Os mo 278 mOsmo 09/29/2014 Tsh Ord6 [...] Result Effective Dates Constitutional No recent illness 02/11/2018 Constitutional No [...] accomodation 02/22/2016 None Full Exam - General 1995 [...] 1995 Ears/Nose/Throat oral cavity/pharynx/larynx Overall: no masses 11/30/2012 [...] lesions 11/30/2012 None Full Exam - General 1995 Genitourinary adnexa/parametria Overall: surgically absent 11/30/2012 None Full Exam - General 1995 Genitourinary urethra Overall: no masses 11/30/2012 None [...] murmurs 11/25/2011 None Full Exam - General 1995 Abdomen abdominal exam Overall: normal bowel sounds 11/25/2011 None Full Exam - General 1995 Genitourinary uterus Overall: surgically absent 11/25/2011 None Full Exam - General 1995 Genitourinary cervix Overall: surgically absent 11/25/2011 None [...] happy 11/25/2011 None Full Exam - General 1995 Abdomen abdominal exam Overall: no tenderness 11/25/2011 [...] sounds 08/21/2011 None Full Exam - General 1995 [...] PRSV 4 VA L 3 YRS+ CPT-4: 39833 10/23/2017 ADMIN INFLUENZA VIRU S VAC CPT-4: G0008 10/23/2017 THER/PROPH/DIAG INJ SC/IM CPT-4: 53886 03/11/2017 TRIAMCINOLONE ACET I [place] NOS CPT-4: J3301 03/11/2017 FLU VAC NO PRSV 4 VA L 3 YRS+ CPT-4: 21800 12/09/2016 ADMIN INFLUENZA VIRU S VAC CPT-4: G0008 12/09/2016 URINALYSIS NONAUTO W /O SCOPE CPT-4: 60237 11/13/2015 IMMUNIZATION ADMIN CPT- 4: 59942 11/13/2015 FLU VACC 4 [place] 3 YRS PLUS IM SNOMED CT: [id number] CPT-4: 71704 11/13/2015 PPPS, SUBSEQ VISIT CPT- 4: G0439 10/10/2015 IMMUNIZATION ADMIN CPT- 4: 66688 11/25/2011 Influenza Virus Vacc ine, Split Virus, >3 Yrs, IM CPT-4: 02122 11/25/2011 ADMIN INFLUENZA VIRU S VAC CPT-4: G0008 12/19/2010 FLULAVAL VACC, 3 YRS & >, IM CPT-4: Q2036 12/19/2010 Vital Signs Date Vital 02/11/2018 Blood Pressure 1: 130/70 Code: 8480-6 BMI: 35.1 Code: 72139-6 Heart Rate 1: 64 bpm Height: 5'3" SpO2: 95% Weight: 198 lbs 10/23/2017 Blood Pressure 1: 124/66 Code: 8480-6 BMI: 34.7 Code: 92520-8 Heart Rate 1: 67 bpm Height: 5'3" SpO2: 95% Weight: 196 lbs 08/13/2017 Blood Pressure 1: 128/82 Code: 8480-6 BMI: 34.7 Code: 66145-7 Heart Rate 1: 74 bpm Height: 5'3" SpO2: 95% Weight: 196 lbs 07/16/2017 Blood Pressure 1: 126/80 Code: 8480-6 BMI: 34.7 Code: 68551-2 Heart Rate 1: 62 bpm Height: 5'3" SpO2: 96% Weight: 196 lbs 06/29/2017 Blood Pressure 1: 122/70 Code: 8480-6 BMI: 35.1 Code: 94581-2 Heart Rate 1: 74 bpm Height: 5'3" SpO2: 94% Weight: 198 lbs 05/01/2017 Blood Pressure 1: 120/68 Code: 8480-6 BMI: 35.1 Code: 34633-3 Heart Rate 1: 76 bpm Height: 5'3" SpO2: 98% Weight: 198 lbs 04/24/2017 Blood Pressure 1: 142/80 Code: 8480-6 BMI: 35.1 Code: 91192-4 Heart Rate 1: 75 bpm Height: 5'3" SpO2: 98% Weight: 198 lbs 03/11/2017 Blood Pressure 1: 128/74 Code: 8480-6 BMI: 34.9 Code: 01560-1 Heart Rate 1: 68 bpm Height: 5'3" SpO2: 96% Weight: 197 lbs 02/19/2017 Blood Pressure 1: 108/62 Code: 8480-6 BMI: 34.9 Code: 17993-3 Heart Rate 1: 74 bpm Height: 5'3" SpO2: 97% Weight: 197 lbs 10/16/2016 Blood Pressure 1: 130/72 Code: 8480-6 BMI: 34.5 Code: 03039-6 Heart Rate 1: 65 bpm Height: 5'3" SpO2: 978% Weight: 194 lbs 8 oz 06/19/2016 Blood Pressure 1: 134/80 Code: 8480-6 BMI: 32.9 Code: 14447-8 Heart Rate 1: 69 bpm Height: 5'3" SpO2: 98% Weight: 186 lbs 03/13/2016 Blood Pressure 1: 118/74 Code: 8480-6 BMI: 32.4 Code: 60433-4 Heart Rate 1: 71 bpm Height: 5'3" SpO2: 96% Weight: 183 lbs 02/22/2016 Blood Pressure 1: 116/64 Code: 8480-6 BMI: 31.5 Code: 85151-5 Heart Rate 1: 71 bpm Height: 5'3" SpO2: 99% Weight: 178 lbs 12/18/2015 Blood Pressure 1: 94/60 Code: 8480-6 BMI: 31.1 Code: 49811-1 Heart Rate 1: 72 bpm Height: 5'3" SpO2: 99% Weight: 175 lbs 8 oz 11/13/2015 Blood Pressure 1: 104/64 Code: 8480-6 BMI: 32.4 Code: 99196-4 Heart Rate 1: 66 bpm Height: 5'3" SpO2: 97% Weight: 183 lbs 10/10/2015 Blood Pressure 1: 112/67 Code: 8480-6 BMI: 32.6 Code: 97070-3 Heart Rate 1: 78 bpm Height: 5'3" SpO2: 97% Weight: 184 lbs 07/23/2015 Blood Pressure 1: 108/64 Code: 8480-6 Blood Pressure 1: 10464 Code: 8480-6 Heart Rate 1: 70 bpm SpO2: 97% 07/10/2015 Blood Pressure 1: 118/64 Code: 8480-6 BMI: 32.6 Code: 90575-1 Heart Rate 1: 61 bpm Height: 5'3" SpO2: 98% Weight: 184 lbs 06/05/2015 Blood Pressure 1: 164/70 Code: 8480-6 BMI: 32.4 Code: 23480-5 Heart Rate 1: 68 bpm Height: 5'3" SpO2: 97% Weight: 183 lbs 05/01/2015 Blood Pressure 1: 150/78 Code: 8480-6 BMI: 32.4 Code: 26291-1 Heart Rate 1: 87 bpm Height: 5'3" SpO2: 95% Weight: 183 lbs 04/09/2015 Blood Pressure 1: 158/68 Code: 8480-6 BMI: 32.9 Code: 75038-3 Heart Rate 1: 78 bpm Height: 5'3" SpO2: 97% Weight: 186 lbs 03/26/2015 Blood Pressure 1: 140/76 Code: 8480-6 BMI: 33.7 Code: 01626-2 Heart Rate 1: 64 bpm Height: 5'3" SpO2: 98% Weight: 190 lbs 11/17/2014 Blood Pressure 1: 146/80 Code: 8480-6 BMI: 33.5 Code: 13474-7 Heart Rate 1: 60 bpm Height: 5'3" SpO2: 97% Weight: 189 lbs 10/31/2014 Blood Pressure 1: 130/72 Code: 8480-6 BMI: 33.7 Code: 86681-7 Heart Rate 1: 59 bpm Height: 5'3" SpO2: 96% Weight: 190 lbs 09/28/2014 Blood Pressure 1: 130/86 Code: 8480-6 Blood Pressure 1: 130/72 Code: 8480-6 BMI: 33.7 Code: 92778-7 Heart Rate 1: 58 bpm Height: 5'3" SpO2: 97% Weight: 190 lbs 08/31/2014 Blood Pressure 1: 122/84 Code: 8480-6 BMI: 34.0 Code: 37095-2 Height: 5'3" Weight: 192 lbs 05/29/2014 Blood Pressure 1: 120/68 Code: 8480-6 BMI: 33.8 Code: 40248-6 Heart Rate 1: 87 bpm Height: 5'3" SpO2: 97% Weight: 191 lbs 11/29/2013 Blood Pressure 1: 138/76 Code: 8480-6 BMI: 33.8 Code: 90560-8 Heart Rate 1: 68 bpm Height: 5'3" Weight: 191 lbs 10/04/2013 Blood Pressure 1: 140/88 Code: 8480-6 BMI: 33.1 Code: 17795-7 Heart Rate 1: 72 bpm Height: 5'3" Weight: 187 lbs 05/31/2013 Blood Pressure 1: 132/84 Code: 8480-6 Heart Rate 1: 60 bpm Weight: 191 lbs 11/30/2012 Blood Pressure 1: 128/72 Code: 8480-6 BMI: 33.5 Code: 84904-3 Heart Rate 1: 72 bpm Height: 5'3" Weight: 189 lbs 05/31/2012 Blood Pressure 1: 126/66 Code: 8480-6 BMI: 35.1 Code: 65588-8 Heart Rate 1: 72 bpm Height: 5'3" Weight: 198 lbs 11/25/2011 Blood Pressure 1: 156/80 Code: 8480-6 BMI: 34.2 Code: 89844-9 Heart Rate 1: 64 bpm Height: 5'3" Weight: 196 lbs 08/21/2011 Blood Pressure 1: 118/78 Code: 8480-6 Heart Rate 1: 68 bpm Respiratory Rate: 16 bpm Weight: 184 lbs 04/14/2011 Blood Pressure 1: 128/68 Code: 8480-6 BMI: 34.2 Code: 37090-8 Heart Rate 1: 56 bpm Height: 5'3" Respiratory Rate: 20 bpm Weight: 193 lbs 10/14/2010 Blood Pressure 1: 124/72 Code: 8480-6 BMI: 30.9 Code: 40882-3 Heart Rate 1: 60 bpm Height: 5'4" Respiratory Rate: 12 bpm Weight: 180 lbs Functional Status No Functional Status data History of Present Illness Symptom Name Status Resu lt Effective Date Notes Onset and Resolution o ngoing 02/11/2018 None [...] drip 05/01/2017 None cough Location in the ro 04/24/2017 None cough Quality constant 04/24/2017 None cough Quality hacking 04/24/2017 None cough Onset and Resolution sudden in onset 04/24/2017 None cough Onset of Symptom 3 days ago 04/24/2017 None cough Frequency of Episodes daily 04/24/2017 None rash Location-Major on t he upper body 03/11/2017 None rash Location-Head/Neck on the left faith 03/11/2017 None rash Location-Head/Neck on the right [...] food / high fat foods per day: 10/10/2015 None Annual Medicare Wellness [...] dizziness 11/29/2013 1 episode reported last w ione hypertension Pertinent Findings Denies dyspnea 11/29/2013 None [...] Encounters Encounter Performer Loca tion Codes Date ([id number]) 81529 EST. P ATIENT, LEVEL IV Diagnosis: Essential (primary) hypertension[ICD10: I10] Diagnosis: Mixed hyperlipidemia[ICD10: E78.2] Diagnosis: Obstructive sleep apnea (adult) (pediatric)[ICD10: G47.33] Evelyn Yeung MD[facility] CPT-4: 66444 02/11/2018 82225 EST. PATIENT, LEVEL III Diagnosis: Plantar wart[ICD10: B07.0] Diagnosis: Contusion of right upper arm, initial encounter[ICD10: S40.021A] Diagnosis: Corns and callosities[ICD10: L84] Diagnosis: VACCIN FOR INFLUENZA[ICD10: Z23] Fay Yeung MD, [facility] CPT-4: 19952 10/23/2017 ([id number]) 64585 EST. P ATIENT, LEVEL IV Diagnosis: Essential (primary) hypertension[ICD10: I10] Diagnosis: Corns and callosities[ICD10: L84] Diagnosis: Mixed hyperlipidemia[ICD10: E78.2] Evelyn Yeung MD, [facility] CPT- 4: 40540 08/13/2017 ([id number]) 31576 EST. P ATIENT, LEVEL III Diagnosis: Essential (primary) hypertension[ICD10: I10] Diagnosis: Corns and callosities[ICD10: L84] Kat Yeung MD, [facility] CPT- 4: 32457 07/16/2017 ([id number]) 15743 EST. P ATIENT, LEVEL III Diagnosis: Pain in right toe(s)[ICD10: M79.674] Diagnosis: Corns and callosities[ICD10: L84] Kat Yeung MD, [facility] CPT- 4: 99178 06/29/2017 ([id number]) Miscellaneou s no charge Diagnosis: Cough[ICD10: R05] Diagnosis: Other allergic rhinitis[ICD10: J30.89] Diagnosis: Acute bronchitis, unspecified[ICD10: J20.9] Kat Yeung MD, [facility] CPT-4: 30357 05/01/2017 75822 EST. PATIENT, LEVEL IV Diagnosis: Cough[ICD10: R05] Diagnosis: Other acute sinusitis[ICD10: J01.80] Diagnosis: Other allergic rhinitis[ICD10: J30.89] Fay Yeung MD, [facility] CPT-4: 76314 04/24/2017 32311 EST. PATIENT, LEVEL III Diagnosis: Rash and other nonspecific skin eruption[ICD10: R21] Fay Yeung MD, [facility] CPT-4: 83270 03/11/2017 ([id number]) 53110 EST. P ATIENT, LEVEL IV Diagnosis: Essential (primary) hypertension[ICD10: I10] Diagnosis: Mixed hyperlipidemia[ICD10: E78.2] Evelyn Yeung MD, [facility] CPT- 4: 61029 02/19/2017 ([id number]) 81481 EST. P ATIENT, LEVEL IV Diagnosis: Encounter for screening mammogram for malignant neoplasm of breast[ICD10: Z12.31] Diagnosis: Essential (primary) hypertension[ICD10: I10] Diagnosis: Mixed hyperlipidemia[ICD10: E78.2] [facility] CPT- 4: 23395 10/16/2016 ([id number]) 66657 EST. P ATIENT, LEVEL IV Diagnosis: Essential (primary) hypertension[ICD10: I10] Diagnosis: Primary central sleep apnea[ICD10: G47.31] Diagnosis: Low back pain[ICD10: M54.5] [facility] CPT-4: 62844 06/19/2016 ([id number]) 26403 EST. P ATIENT, LEVEL III Diagnosis: Pain in left shoulder[ICD10: M25.512] Diagnosis: Pain in left upper arm[ICD10: M79.622] Kat Yeung MD, [facility] CPT-4: 05184 03/13/2016 ([id number]) 68276 EST. P ATIENT, LEVEL III Diagnosis: Essential (primary) hypertension[ICD10: I10] Diagnosis: Pain in left shoulder[ICD10: M25.512] Kat Yeung MD, [facility] CPT-4: 86758 02/22/2016 ([id number]) 71192 EST. P ATIENT, LEVEL III Diagnosis: Orthostatic hypotension[ICD10: I95.1] [facility] CPT-4: 91810 12/18/2015 ([id number]) 44026 EST. P ATIENT, LEVEL III Diagnosis: Essential (primary) hypertension[ICD10: I10] Diagnosis: Dysuria[ICD10: R30.0] Diagnosis: VACCIN FOR INFLUENZA[ICD10: Z23] [facility] CPT-4: 46811 11/13/2015 ([id number]) Miscellaneou s no charge Diagnosis: Essential (primary) hypertension[ICD10: I10] Kat Yeung MD, [facility] CPT-4: 94754 07/23/2015 ([id number]) 97781 EST. P ATIENT, LEVEL III Diagnosis: Essential (primary) hypertension[ICD10: I10] Evelyn Yeung MD, C CPT-4: 91438 07/10/2015 ([id number]) 55503 EST. P ATIENT, LEVEL IV Diagnosis: Essential (primary) hypertension[ICD10: I10] Diagnosis: Primary central sleep apnea[ICD10: G47.31] Diagnosis: Anemia, unspecified[ICD10: D64.9] Evelyn Yeung MD, [facility] CPT-4: 96895 06/05/2015 ([id number]) 19797 EST. P ATIENT, LEVEL III Diagnosis: Essential (primary) hypertension[ICD10: I10] Evelyn Yeung MD, [facility] CPT-4: 95107 05/01/2015 23222 EST. PATIENT, LEVEL III Diagnosis: Pain in right knee[ICD10: M25.561] Diagnosis: Essential (primary) hypertension[ICD10: I10] Diagnosis: Encounter for follow-up examination after completed treatment for conditions other than malignant neoplasm[ICD10: Z09] Fay Yeung MD, [facility] CPT-4: 11057 04/09/2015 ([id number]) 45953 EST. P ATIENT, LEVEL IV Diagnosis: Essential (primary) hypertension[ICD10: I10] Diagnosis: Pain in right knee[ICD10: M25.561] Evelyn Yeung MD, [facility] CPT- 4: 61496 03/26/2015 ([id number]) 07921 EST. P ATIENT, LEVEL III Diagnosis: Left upper quadrant pain[ICD10: R10.12] Diagnosis: Lower abdominal pain, unspecified[ICD10: R10.30] Diagnosis: Recurrent oral aphthae[ICD10: K12.0] Evelyn Yeung MD, [facility] CPT-4: 96203 11/17/2014 ([id number]) 54011 EST. P ATIENT, LEVEL III Diagnosis: Left groin pain[ICD9: 789.09] Evelyn Yeung MD, [facility] CPT-4: 02074 10/31/2014 ([id number]) 71636 EST. P ATIENT, LEVEL IV Diagnosis: ESSENTIAL HYPERTENSION[ICD9: 401.9] Diagnosis: HYPERLIPIDEMIA[ICD9: 272.4] Evelyn Yeung MD, [facility] CPT-4: 65696 09/28/2014 ([id number]) 39952 EST. P ATIENT, LEVEL III Diagnosis: CELLULITIS OF FACE[ICD9: 682.0] Tatiana Yeung MD, [facility] CPT-4: 63686 08/31/2014 ([id number]) 23884 EST. P ATIENT, LEVEL IV Diagnosis: ESSENTIAL HYPERTENSION[ICD9: 401.9] Diagnosis: Hyperlipidemia[ICD9: 272.4] Diagnosis: Reyes's cyst of knee[ICD9: 727.51] Evelyn Yeung MD, [facility] CPT- 4: 09054 05/29/2014 ([id number]) 84644 EST. P ATIENT, LEVEL III Diagnosis: ESSENTIAL HYPERTENSION[ICD9: 401.9] Diagnosis: HYPERLIPIDEMIA[ICD9: 272.4] Evelyn Yeung MD, [facility] CPT-4: 85546 11/29/2013 ([id number]) 42786 EST. P ATIENT, LEVEL III Diagnosis: CELLULITIS OF FACE[ICD9: 682.0] Evelyn Yeung MD, [facility] CPT-4: 22937 10/04/2013 ([id number]) 23429 EST. P ATIENT, LEVEL IV Diagnosis: ESSENTIAL HYPERTENSION[SNOMED: 11844694] Diagnosis: HYPERLIPIDEMIA[ICD9: 272.4] Evelyn Yeung MD, [facility] CPT-4: 35565 05/31/2013 ([id number]) 23471 EST. P ATIENT, LEVEL III Diagnosis: ESSENTIAL HYPERTENSION[SNOMED: 65650187] Diagnosis: ABN FINDINGS NEC[ICD9: 796.9] Evelyn Yeung MD, [facility] CPT-4: 75138 11/30/2012 ([id number]) 38489 EST. P ATIENT, LEVEL IV Diagnosis: ESSENTIAL HYPERTENSION[SNOMED: 06804299] Diagnosis: HYPERLIPIDEMIA[ICD9: 272.4] Diagnosis: Abnormal Pap smear[ICD9: 796.9] Evelyn Yeung MD, [facility] CPT-4: 93208 05/31/2012 ([id number]) 28298 EST. P ATIENT, LEVEL III Diagnosis: Abnormal Pap smear[ICD9: 796.9] Diagnosis: ESSENTIAL HYPERTENSION[SNOMED: 45481970] Evelyn Yeung MD, C CPT-4: 16486 11/25/2011 ([id number]) 98341 EST. 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 P ATIENT, LEVEL IV Diagnosis: ESSENTIAL HYPERTENSION[SNOMED: 07252237] Diagnosis: Hyperlipidemia[ICD9: 272.4] Diagnosis: Annual physical exam[ICD9: V70.0] Evelyn Yeung MD, [facility] CPT-4: 22373 04/14/2011 31696 EST. PATIENT, LEVEL III Diagnosis: ESSENTIAL HYPERTENSION[SNOMED: 46066711] Diagnosis: Dyspareunia, female[ICD9: 625.0] Evelyn Yeung MD, [facility] CPT-4: 72895 10/14/2010 Plan of Care Planned Activity Notes [...] cpap. 02/11/2018 App[facility]ment[phone] (15 min) Moderate 02/11/2018 Patient Education: Patient [...] improvement 10/23/2017 Appointment: [phone] [place] (15 min) Moderate 10/23/2017 Patient Education: Patient [...] to assure normal liver response to medications. Ramsey on 4th toe right foot lateral surface - removed with scalpel. 08/13/2017 Appointment: Evelyn Yeung WPtel: [facility] (15 min) Moderate 08/13/2017 Patient Education: Patient Medication Summary Completed 08/13/2017 Visit Plan: ZIT-onjuekbjgo-do goldberg es Callus right toe -healed-no further treatment indicated 07/16/2017 Appointment: Kat Mitchell WPtel: [address] [place], [place] [phone] (15 min) Moderate 07/16/2017 Patient Education: Patient Medication Summary Completed 07/16/2017 Appointment: Kat Mitchell WPtel: [address] [place], [place] [phone] (15 min) Moderate 07/14/2017 Visit Plan: Callus-right 4th toe-de brided today in the office-instructed patient on wound care and to call if symptoms do not resolve or if any worse-patient verbalized understanding of plan. 06/29/2017 Appointment: Kat Mitchell WPtel: [address] [place], [place] [phone] (15 min) Moderate 06/29/2017 Patient Education: Patient Medication Summary Completed 06/29/2017 Visit Plan: Bronchitis-cough Discus sed natural and expected course of this diagnosis and need to alert me if symptoms do not follow expected course, or if any worse. RX sent to patient's pharmacy. 05/01/2017 Appointment: Kat Mitchell WPtel: [address] [place], [place] [phone] (10 min) Simple 05/01/2017 Patient Education: Patient [...] spray. 04/24/2017 Appointment: Fay Marie WPtel: [phone] [facility] (15 min) Moderate 04/24/2017 Patient Education: [...] warmth, discharge. 03/11/2017 Appointment: Fay Marie WPtel: [facility] (30 min) Complex 03/11/2017 Patient Education: Patient [...] to medications. 02/19/2017 Appointment: Evelyn Yeung WPtel: [facility] (15 min) Moderate 02/19/2017 Patient Education: Patient [...] to medications. 10/16/2016 Appointment: Evelyn Yeung WPtel: [phone] [facility] (15 min) Moderate 10/16/2016 Patient Education: [...] monitor symptoms. 06/19/2016 Appointment: Evelyn Yeung WPtel: [facility] (15 min) Moderate 06/19/2016 Patient Education: Patient Medication Summary Completed 06/19/2016 Patient Education: Obesity Completed 06/19/2016 Visit Plan: Left shoulder pain-adriana ent has done rest, ice, and anti inflammatories-shoulder pain persists and causing weakness in left arm- will xray shoulder/humerus and proceed with MRI if indicated-patient verbalized understanding of plan. 03/13/2016 Appointment: Kat Mitchell WPtel: [phone] [phone] [place] (15 min) Moderate 03/13/2016 Appointment: Evelyn Yeung WPtel: [phone] [facility] [place] (15 min) Moderate 03/13/2016 Patient Education: [...] at home. 02/22/2016 Appointment: Kat Mitchell WPtel: [phone] [phone] (15 min) Moderate 02/22/2016 Patient Education: Patient Medication Summary Completed 02/22/2016 Patient Education: Obesity Completed 02/22/2016 Appointment: Kat Mitchell WPtel: [phone] [phone] (30 min) Complex 02/06/2016 Visit Plan: HYPOTENSION - RECOMMEND ED PT TO DECREASE THE LISIONPRIL TO 20MG ONE TIME DAILY. 12/18/2015 Appointment: Evelyn Yeung WPtel: [facility] (15 min) Moderate 12/18/2015 Patient Education: Patient [...] at home. 11/13/2015 Appointment: [facility]Pt[phone] (15 min) Moderate 11/13/2015 Patient Education: Patient [...] care surrogate. 10/10/2015 Appointment: Kat Mitchell WPtel: [phone] (30 min) Complex 10/10/2015 Patient Education: [...] at home. 07/10/2015 Appointment: Evelyn Yeung WPtel: [facility] (15 min) Moderate 07/10/2015 Patient Education: [...] cpap 06/05/2015 Appointment: [phone] (15 min) Moderate 06/05/2015 Patient Education: Patient [...] Completed 04/09/2015 Appointment: [phone] [facility] (15 min) Moderate 03/29/2015 Visit Plan: Hypertension [...] to medications. 09/28/2014 Appointment: Evelyn Yeung WPtel: [address] [place] [address] Follow up 09/28/2014 Patient Education: Patient Medication Summary Completed 09/28/2014 Patient Education: Hypertension Completed 09/28/2014 Care Plan: COMPLETE CBC AUTOMATED LOINC : 18613-6 Ordered 09/28/2014 Visit Plan: Cellulitis - RX [...] rest. 05/29/2014 Appointment: Evelyn Yeung WPtel: [phone] [facility] Follow up 05/29/2014 Patient Education: Patient Medication [...] to medications. 11/29/2013 Appointment: Evelyn Yeung WPtel: [facility] Follow up 11/29/2013 Patient Education: Patient Medication Summary Completed 11/29/2013 Patient Education: Hypertension Completed 11/29/2013 Care Plan: COMPLETE CBC AUTOMATED LOINC : 76983-3 Ordered 11/29/2013 Visit Plan: Cellulitis - continue w ith oral antibiotics as previously directed, return to clinic as previously directed, call for acute change in symptoms, worsening redness, warmth, discharge. 10/04/2013 Appointment: Evelyn Yeung WPtel: [phone] [facility] [facility] 10/04/2013 Patient Education: Patient Medication Summary Completed [...] months 05/31/2013 Appointment: [phone] Follow up 05/31/2013 Patient Education: Patient Medication [...] years. 11/30/2012 Appointment: [facility]el[phone] Pap Only 11/30/2012 Patient Education: Patient Medication [...] of 2011. 05/31/2012 Appointment: [facility]Ptel[phone] [place] Pap Only 05/31/2012 Patient Education: Patient [...] at home. 11/25/2011 Appointment: Evelyn Yeung WPtel: [facility] [place] Pap Only 11/25/2011 Patient Education: Patient Medication Summary Completed 11/25/2011 Patient Education: High Blood Pressure: Essential Hypertension Completed 11/25/2011 Appointment: Evelyn Yeung WPtel: [address] [place], [place] [phone] [place] Pap Only 09/01/2011 Appointment: Evelyn Yeung WPtel: [address] [place], [place] [phone] [place] Pap Only 08/26/2011 Visit Plan: Hypertension [...] hot flashes. 08/21/2011 Appointment: Evelyn Yeung WPtel: [facility] [place] Pap Only 08/21/2011 Patient Education: Patient Medication Summary Completed 08/21/2011 Patient Education: High Blood Pressure: Essential Hypertension Completed 08/21/2011 Appointment: Ev[facility] Ye[facility]Ptel: [phone] Other 04/16/2011 Visit Plan: Hypertension - well [...] or prn. 04/14/2011 Appointment: Evelyn Yeung WPtel: [facility] Pap Only 04/14/2011 Patient Education: Patient Medication Summary Completed 04/14/2011 Patient Education: High Blood Pressure: Essential Hypertension Completed 04/14/2011 Appointment: Evelyn Yeung WPtel: [facility] [place] Injection 12/19/2010 Patient Education: Patient Medication [...] decrease discomfort. 10/14/2010 Appointment: Evelyn Yeung WPtel: [phone] [facility] Other 10/14/2010 Patient Education: Patient Medication Summary Completed 10/14/2010 Instructions Comment . Medicare Exam - to day we [...] to assure normal liver response to medications. Ramsey on 4th toe right foot lateral surface [...] Abdominal pain-LUQ and LLQ-schedule abdominal ultrasound . JYB-umdmnfabnv-ew changes Callus right toe -healed-no further treatment [...] pt doing well with the cpap. . Hypertension - wel l controlled - [...] - continue with supportive care, monitor symptoms. ALEVE 2 TABS TWICE D AILY WITH [...] for repeat exam until 2 years. . Cellulitis - jorden nue with oral antibiotics as previously directed, return to clinic as previously directed, call for acute change in symptoms, worsening redness, warmth, discharge.
--- OUTSIDE RECORDS SUMMARY | 2019-07-08 08:18 | XMS REPORT | CCD ---
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 10/14/[address]: 928801648 Never smoker 10/14/[address]: 036646807 Never drinks alcohol 10/14/2010 Has the patient [...] 50 mg tablet,extended release 24 hr RxNorm: 236431 Tablet(s) TAKE 1 TABLET TWICE DAILY 05/25/2018 05/19/2019 Active potassium chloride E R 10 mEq capsule,extended release RxNorm: 367338 1 Capsule(s) PO TIW TAKE 1 CAPSULE THREE TIMES WEEKLY 04/23/2018 04/17/2019 Active three times weekly- sent on 04/21/18- requested again 04/23/18 potassium chloride E R 10 mEq capsule,extended release RxNorm: 818559 1 Capsule(s) PO TIW TAKE 1 CAPSULE THREE TIMES WEEKLY 04/21/2018 04/22/2018 Inactive thre e times weekly chlorthalidone 25 mg tablet RxNorm: 662518 Tablet(s) TAKE 1 TABL ET EVERY MORNING 03/26/2018 03/20/2019 Ac tive simvastatin 20 mg ta blet RxNorm: 869422 Tablet(s) TAKE 1 TABL ET EVERY NIGHT 03/26/2018 03/20/2019 Ac tive lisinopril 20 mg tablet RxNorm: 037977 1 Tablet(s) PO daily 02/11/2018 05/06/2019 Active this is an update on her RX - she is onl y taking 20mg daily -please delete other rx's lisinopril 20 mg tablet RxNorm: 426744 1 Tablet(s) PO daily 11/20/2017 02/10/2018 Inactive lisinopril 40 mg tablet RxNorm: 959195 Tablet(s) TAKE 1 TABLET EVERY DAY 11/16/2017 11/19/2017 In active metoprolol succinate ER 50 mg tablet,extended release 24 hr RxNorm: 233353 Tablet(s) TAKE 1 TABLET TWICE DAILY 06/05/2017 05/24/2018 Inactive metoprolol succinate ER 50 mg tablet,extended release 24 hr RxNorm: 905593 Tablet(s) TAKE 1 TABLET TWICE DAILY 06/05/2017 06/04/2017 Inactive potassium chloride E R 10 mEq capsule,extended release RxNorm: 150354 1 Capsule(s) PO TIW TAKE 1 CAPSULE THREE TIMES WEEKLY 05/07/2017 04/20/2018 Inactive thre e times weekly potassium chloride E R 10 mEq capsule,extended release RxNorm: 471686 1 Capsule(s) PO daily TAKE 1 CAPSULE THREE TIMES WEEKLY 05/05/2017 05/06/2017 Inactive metoprolol succinate ER 50 mg tablet,extended release 24 hr RxNorm: 661396 Tablet(s) TAKE 1 TABLET TWICE DAILY 05/04/2017 06/04/2017 Inactive Phenergan with Codei ne Syrup RxNorm: 5-10 Milliliter(s) PO QID a s needed cough 05/01/2017 No Stop Date Active cefdinir 300 mg capsule RxNorm: 546741 1 Capsule(s) PO BID 05/01/2017 05/07/2017 Inactive Zithromax Z-Doroteo 250 mg tablet RxNorm: 645892 1 Tablet(s) PO UD 04/24/2017 06/22/2017 Inactive Phenergan with Codei ne Syrup RxNorm: 5-10 Milliliter(s) PO QID a s needed cough 04/24/2017 04/30/2017 In active prednisone 20 mg tablet RxNorm: 335066 2 Tablet(s) PO daily 04/24/2017 04/28/2017 Inactive chlorthalidone 25 mg tablet RxNorm: 486683 Tablet(s) TAKE 1 TABL ET EVERY MORNING 04/13/2017 03/25/2018 In active simvastatin 20 mg ta blet RxNorm: 442661 Tablet(s) TAKE 1 TABL ET EVERY NIGHT 04/08/2017 03/25/2018 In active Kenalog 40 mg/mL wander pension for injection RxNorm: 3588754 1 Milliliter(s) Inj 03/11/2017 03/11/2017 In active prednisone 20 mg tablet RxNorm: 509976 2 Tablet(s) PO daily 03/11/2017 03/15/2017 Inactive simvastatin 20 mg ta blet RxNorm: 551194 TAKE 1 TABLET EVERY DAY 01/02/2017 04/07/2017 Inactive lisinopril 40 mg tablet RxNorm: 942068 TAKE 1 TABLET EVERY DAY 11/24/2016 08/20/2017 Inactive metoprolol succinate ER 50 mg tablet,extended release 24 hr RxNorm: 105151 TAKE 1 TABLET TWICE DAILY 11/24/2016 05/03/2017 Inactive fluconazole 150 mg t ablet RxNorm: 429584 1 Tablet(s) PO daily prn yeast infection symptoms 10/16/2016 10/25/2016 Inactive potassium chloride E R 10 mEq capsule,extended release RxNorm: 585998 TAKE 1 CAPSULE THREE TIMES WEEKLY 08/12/2016 05/04/2017 Inactive chlorthalidone 25 mg tablet RxNorm: 535465 TAKE 1 TABLET EVERY M ORNING 06/30/2016 04/12/2017 In active simvastatin 20 mg ta blet RxNorm: 572604 TAKE 1 TABLET EVERY DAY 01/21/2016 01/01/2017 Inactive lisinopril 40 mg tablet RxNorm: 781239 1/2 Tablet(s) daily 12/18/2015 11/23/2016 Inactive metoprolol succinate ER 50 mg tablet,extended release 24 hr RxNorm: 633793 Tablet(s) TAKE 1 TABLET TWICE DAILY 12/13/2015 11/23/2016 Inactive metoprolol succinate ER 50 mg tablet,extended release 24 hr RxNorm: 435250 Tablet(s) TAKE 1 TABLET TWICE DAILY 12/13/2015 12/12/2015 Inactive metoprolol succinate ER 50 mg tablet,extended release 24 hr RxNorm: 879152 Tablet(s) TAKE 1 TABLET TWICE DAILY 11/13/2015 12/12/2015 Inactive Keflex 500 mg capsule RxNorm: 652545 1 Capsule(s) PO TID 11/13/2015 11/19/2015 Inactive chlorthalidone 25 mg tablet RxNorm: 654258 1 Tablet(s) PO QAM 08/08/2015 06/29/2016 Inactive potassium chloride E R 10 mEq capsule,extended release RxNorm: 135539 1 Capsule(s) PO TIW 08/08/2015 08/01/2016 Inactive potassium chloride E R 10 mEq capsule,extended release RxNorm: 432950 1 Capsule(s) PO TIW 06/20/2015 08/07/2015 Inactive lisinopril 40 mg tablet RxNorm: 760512 TAKE 1 TABLET EVERY DAY 2015 12/17/2015 Inactive potassium chloride E R 10 mEq capsule,extended release RxNorm: 698700 1 Capsule(s) PO TIW 2015 06/19/2015 Inactive chlorthalidone 25 mg tablet RxNorm: 627672 1 Tablet(s) PO QAM 06/05/2015 08/07/2015 Inactive potassium chloride E R 10 mEq capsule,extended release RxNorm: 045285 1 Capsule(s) PO TIW 06/05/2015 06/17/2015 Inactive lisinopril 40 mg tablet RxNorm: 923367 1/2 Tablet(s) PO BID 05/07/2015 06/17/2015 Inactive amoxicillin 500 mg t ablet RxNorm: 569484 4 Tablet(s) PO one ho ur prior to dental appts UD 05/07/2015 10/08/2015 Inactive amoxicillin 500 mg t ablet RxNorm: 255991 4 Tablet(s) PO one ho ur prior to dental appts UD 05/04/2015 05/06/2015 Inactive lisinopril 40 mg tablet RxNorm: 034181 1/2 Tablet(s) PO BID 05/04/2015 05/06/2015 Inactive amoxicillin 500 mg t ablet RxNorm: 345199 4 Tablet(s) PO one ho ur prior to dental appts UD 05/01/2015 05/03/2015 Inactive lisinopril 40 mg tablet RxNorm: 906905 1/2 Tablet(s) PO BID TAKE 1 TABLET DAILY 05/01/2015 05/03/2015 In active metoprolol succinate ER 50 mg tablet,extended release 24 hr RxNorm: 543939 TAKE 1 AND 1/2 TABLETS TWICE DAILY 04/16/2015 11/12/2015 Inactive simvastatin 20 mg ta blet RxNorm: 770099 TAKE 1 TABLET EVERY DAY 04/16/2015 01/10/2016 Inactive acyclovir 800 mg tablet RxNorm: 907295 1 Tablet(s) PO TID 11/17/2014 11/26/2014 Inactive acyclovir 400 mg tablet RxNorm: 569974 2 Tablet(s) PO QID 10/06/2014 10/05/2014 Inactive acyclovir 400 mg tablet RxNorm: 435841 2 Tablet(s) PO QID 10/06/2014 10/15/2014 Inactive cephalexin 500 mg ca psule RxNorm: 892260 1 Capsule(s) PO TID 08/31/2014 09/04/2014 Inactive Bactroban 2 % topica l ointment RxNorm: 011359 1 Application TOP BID 08/31/2014 10/08/2015 Inactive Bactroban 2 % topica l ointment RxNorm: 369746 1 Application TOP BID 08/31/2014 09/04/2014 Inactive simvastatin 20 mg ta blet RxNorm: 804327 Tablet(s) TAKE 1 TABL ET DAILY 03/31/2014 04/15/2015 In active lisinopril 40 mg tablet RxNorm: 327194 Tablet(s) TAKE 1 TABLET DAILY 03/31/2014 04/30/2015 In active metoprolol succinate ER 50 mg tablet,extended release 24 hr RxNorm: 943045 Tablet(s) TAKE ONE AND ONE-HALF TABLETS (75 MG) TWICE A DAY 03/09/2014 04/15/2015 Inactive Prio r authorization approved for this med until 03-09-2015 metoprolol succinate ER 50 mg tablet,extended release 24 hr RxNorm: 325804 Tablet(s) TAKE ONE AND ONE-HALF TABLETS (75 MG) TWICE A DAY 03/06/2014 03/08/2014 Inactive simvastatin 20 mg ta blet RxNorm: 415767 TAKE 1 TABLET DAILY 01/24/2014 03/30/2014 Inactive lisinopril 40 mg tablet RxNorm: 430703 TAKE 1 TABLET DAILY 01/24/2014 03/30/2014 Inactive simvastatin 20 mg ta blet RxNorm: 097091 TAKE 1 TABLET DAILY 10/24/2013 01/23/2014 Inactive cephalexin 500 mg ca psule RxNorm: 107330 1 Capsule(s) PO TID 10/04/2013 10/08/2013 Inactive metoprolol succinate ER 50 mg tablet,extended release 24 hr RxNorm: 549304 TAKE ONE AND ONE-HALF TABLETS (75 MG) TWICE A DAY 09/16/2013 03/05/2014 Inactive simvastatin 20 mg ta blet RxNorm: 199464 Tablet(s) PO TAKE 1 T ABLET DAILY 04/21/2013 10/23/2013 In active metoprolol succinate ER 50 mg tablet,extended release 24 hr RxNorm: 440774 Tablet(s) PO TAKE ONE AND ONE-HALF TABLETS (75 MG) TWICE A DAY 03/24/2013 09/15/2013 Inactive metoprolol succinate ER 50 mg tablet,extended release 24 hr RxNorm: 212889 Tablet(s) PO TAKE ONE AND ONE-HALF TABLETS (75 MG) TWICE A DAY 12/20/2012 03/23/2013 Inactive lisinopril 40 mg tablet RxNorm: 331804 Tablet(s) PO TAKE 1 TABLET DAILY 11/18/2012 01/23/2014 In active simvastatin 20 mg ta blet RxNorm: 951287 Tablet(s) PO TAKE 1 T ABLET DAILY 08/06/2012 04/20/2013 In active metoprolol succinate ER 50 mg tablet,extended release 24 hr RxNorm: 498151 Tablet(s) PO TAKE ONE AND ONE-HALF TABLETS (75 MG) TWICE A DAY 06/15/2012 12/19/2012 Inactive metoprolol succinate ER 50 mg tablet,extended release 24 hr RxNorm: 966690 Tablet(s) PO TAKE ONE AND ONE-HALF TABLETS (75 MG) TWICE A DAY 03/01/2012 06/14/2012 Inactive Diflucan 150 mg tablet RxNorm: 986596 1 Tablet(s) PO daily 12/03/2011 12/02/2011 Inactive Diflucan 150 mg tablet RxNorm: 581631 1 Tablet(s) PO daily 12/03/2011 12/07/2011 Inactive Diflucan 150 mg tablet RxNorm: 904303 1 Tablet(s) PO daily 12/03/2011 12/02/2011 Inactive Influenza Virus Vacc ine 0.5 mL RxNorm: IM 11/25/2011 11/25/2011 Inactive metoprolol succinate ER 50 mg tablet,extended release 24 hr RxNorm: 156790 Tablet(s) PO 09/16/2011 02/29/2012 Inactive TAKE ONE AND ONE-HALF TABLETS (75 MG) TW ICE A DAY lisinopril 40 mg tablet RxNorm: 731847 Tablet(s) PO 08/25/2011 11/17/2012 Inactive TAKE 1 TABLET DAILY simvastatin 20 mg ta blet RxNorm: 453004 Tablet(s) PO 07/31/2011 08/05/2012 Inactive TAKE 1 TABLET DAILY Influenza Virus Vacc ine 0.5 mL RxNorm: 1/2 Milliliter(s) IM 12/19/2010 12/19/2010 Inactive metoprolol succinate ER 50 mg tablet,extended release 24 hr RxNorm: 079927 Tablet(s) PO 12/02/2010 09/15/2011 Inactive TAKE ONE AND ONE-HALF TABLETS (75 MG) TW ICE A DAY Calcium 600 + D(3) 6 00 mg (1,500 mg)-400 unit Tab RxNorm: 097186 1 Tablet(s) PO daily No Start Date Active Tylenol PM Extra Str ength 25 mg-500 mg Tab RxNorm: 9075309 1 Tablet(s) PO QHS No Start Date Active Probiotic & Acidophi lesa oral RxNorm: oral No Start D ate Active Fish Oil 1,200 mg-14 4 mg-216 mg Cap RxNorm: 1 Capsule(s) PO BID No Start Date Active 1400mg multivitamin Cap RxNorm: 1 Capsule(s) PO daily No Start Date Active Aspirin Childrens 81 mg Chewable Tab RxNorm: 941643 1 Tablet(s) PO daily No Start Date Active premarin 0.5% Vagina l cream RxNorm: [address] art Date 08/30/2014 Inactive simvastatin 20 mg Tab RxNorm: 319114 1 Tablet(s) PO daily No Start Date 07/30/2011 Inactive lisinopril 40 mg Tab RxNorm: 517536 1 Tablet(s) PO daily No Start Date 08/24/2011 Inactive Fish Oil 340 mg-1,00 0 mg Cap RxNorm: 1 Capsule(s) PO TID No Start Date 04/14/2011 Inactive [place] 20 mg Tab RxNorm: 495052 1 Tablet(s) PO daily No Start Date 04/14/2011 Inactive metoprolol succinate ER 50 mg 24 hr Tab RxNorm: 382929 1 &1/2 Tablet(s) PO d aily No Start Date 12/01/2010 Inactive Medication Administered Medication Codes Instruc tions Start Date Status Kenalog 40 mg/mL suspension for injection RxNorm: 7363278 1Milliliter 03/11/2017 N o longer Active Influenza [...] 30.2 pg 10/17/2016 Cbc With Differential Ord2 [place]% 6.3 % 10/17/2016 Cbc With Differential Ord2 [...] 1.37 K/ul 10/17/2016 Cbc With Differential Ord2 [place] ABS# 0.3 K/ul 10/17/2016 Cbc With Differential Ord2 Eos ABS# 0.2 K/ul 10/17/2016 Cbc With Differential Ord2 Baso ABS# 0.0 K/ul 10/17/2016 Comp Metabolic Irq888 NA 141 mEq/L 10/17/2016 Comp Metabolic Lml298 K 3.9 mEq/L 10/17/2016 Comp Metabolic Wtc839 CL 105 mEq/L 10/17/2016 Comp Metabolic Mkx862 CO2 26.0 mEq/L 10/17/2016 Comp Metabolic Bnm638 AN ION GAP 14 10/17/2016 Comp Metabolic Cwv443 GL UCOSE 100 mg/dL 10/17/2016 Comp Metabolic Sbq920 Cr eat 1.0 mg/dL 10/17/2016 Comp Metabolic Haw744 eG FR 61 ml/min/1.73m2 10/17 Comp Metabolic Qzd047 BUN 17 mg/dL 10/17/2016 Comp Metabolic Qus389 B/ C Ratio 17.7 Ratio 10/17/2016 Comp Metabolic Ojc730 CA LCIUM 9.8 mg/dL 10/17/2016 Comp Metabolic Kke753 AL K PHOS 44 U/L 10/17/2016 Comp Metabolic Ecq712 T(SGOT) 15 U/L 10/17/2016 Comp Metabolic Hwb690 AL T(SGPT) 16 U/L 10/17/2016 Comp Metabolic Pgo945 BI LI T 0.5 mg/dL 10/17/2016 Comp Metabolic Ksy518 AL BUMIN 4.3 g/dL 10/17/2016 Comp Metabolic Xvd808 TP RO 6.5 g/dL 10/17/2016 Comp Metabolic Rck347 GL OB 2.3 g/dL 10/17/2016 Comp Metabolic Qws813 A/ G Ratio 1.9 Ratio 10/17/2016 Comp Metabolic Ylg335 Os mo 283 mOsmo 10/17/2016 Lipid Ord30 CHOL 134 mg/dL 10/17/2016 Lipid Ord30 HDL 48.0 mg/dl 10/17/2016 Lipid Ord30 TRIG 123 mg/dL 10/17/2016 Lipid Ord30 LDL 61 mg/dL 10/17/2016 Lipid Ord30 C/HDL 2.8 Ratio 10/17/2016 Comp Metabolic Qke071 NA 140 mEq/L 02/28/2016 Comp Metabolic Yso240 K 3.9 mEq/L 02/28/2016 Comp Metabolic Ijj617 CL 102 mEq/L 02/28/2016 Comp Metabolic Nzb183 CO2 31.0 mEq/L 02/28/2016 Comp Metabolic Pmy298 AN ION GAP 11 02/28/2016 Comp Metabolic Zfo267 GL UCOSE 87 mg/dL 02/28/2016 Comp Metabolic Fuy001 Cr eat 1.2 mg/dL 02/28/2016 Comp Metabolic Bdz154 eG FR 45 ml/min/1.73m2 02/27 Comp Metabolic Rwu875 BUN 23 mg/dL 02/28/2016 Comp Metabolic Ekz643 B/ C Ratio 18.5 Ratio 02/28/2016 Comp Metabolic Zep369 CA LCIUM 9.2 mg/dL 02/28/2016 Comp Metabolic Lwm923 AL K PHOS 53 U/L 02/28/2016 Comp Metabolic Ltv485 T(SGOT) 16 U/L 02/28/2016 Comp Metabolic Ruh362 AL T(SGPT) 17 U/L 02/28/2016 Comp Metabolic Zky752 BI LI T 0.5 mg/dL 02/28/2016 Comp Metabolic Jaa500 AL BUMIN 4.2 g/dL 02/28/2016 Comp Metabolic Idk578 TP RO 6.7 g/dL 02/28/2016 Comp Metabolic Jxe905 GL OB 2.5 g/dL 02/28/2016 Comp Metabolic Dnh121 A/ G Ratio 1.7 Ratio 02/28/2016 Comp Metabolic Lyn001 Os mo 282 mOsmo 02/28/2016 Cbc With [...] 30.5 pg 02/28/2016 Cbc With Differential Ord2 [place]% 5.6 % 02/28/2016 Cbc With Differential Ord2 [...] 1.21 K/ul 02/28/2016 Cbc With Differential Ord2 [place] ABS# 0.3 K/ul 02/28/2016 Cbc With Differential Ord2 Eos ABS# 0.2 K/ul 02/28/2016 Cbc With Differential Ord2 Baso ABS# 0.0 K/ul 02/28/2016 Lipid Ord30 CHOL 141 mg/dL 02/28/2016 Lipid Ord30 HDL 48.0 mg/dl 02/28/2016 Lipid Ord30 TRIG 144 mg/dL 02/28/2016 Lipid Ord30 LDL 64 mg/dL 02/28/2016 Lipid Ord30 C/HDL 2.9 Ratio 02/28/2016 Tsh Ord6 hTSH II 2.22 uIU/mL 02/28/2016 Culture Urine [id number] URI NE CULTURE SEE NOTES 11/15/2015 Urine [...] Ord30 C/HDL 2.7 Ratio 03/19/2015 Comp Metabolic Ugf849 NA 139 mEq/L 03/19/2015 Comp Metabolic Jsf308 K 4.0 mEq/L 03/19/2015 Comp Metabolic Xsw939 CL 105 mEq/L 03/19/2015 Comp Metabolic Dqj098 CO2 29.0 mEq/L 03/19/2015 Comp Metabolic Ntl516 AN ION GAP 9 03/19/2015 Comp Metabolic Bdr903 GL UCOSE 90 mg/dL 03/19/2015 Comp Metabolic Wcf621 Cr eat 0.8 mg/dL 03/19/2015 Comp Metabolic Zht128 eG FR 80 ml/min/1.73m2 03/19 Comp Metabolic Acr737 BUN 14 mg/dL 03/19/2015 Comp Metabolic Ygr840 B/ C Ratio 18.4 Ratio 03/19/2015 Comp Metabolic Cgo423 CA LCIUM 9.5 mg/dL 03/19/2015 Comp Metabolic Mqc017 AL K PHOS 39 U/L 03/19/2015 Comp Metabolic Dxc407 T(SGOT) 17 U/L 03/19/2015 Comp Metabolic Ihf293 AL T(SGPT) 22 U/L 03/19/2015 Comp Metabolic Tyk832 BI LI T 0.5 mg/dL 03/19/2015 Comp Metabolic Xcy909 AL BUMIN 4.2 g/dL 03/19/2015 Comp Metabolic Zkl982 TP RO 6.3 g/dL 03/19/2015 Comp Metabolic Rcy647 GL OB 2.1 g/dL 03/19/2015 Comp Metabolic Pnw529 A/ G Ratio 2.0 Ratio 03/19/2015 Comp Metabolic Yjn719 Os mo 278 mOsmo 03/19/2015 Tsh Ord6 [...] 29.9 pg 03/19/2015 Cbc With Differential Ord2 [place]% 5.1 % 03/19/2015 Cbc With Differential Ord2 [...] 1.52 K/ul 03/19/2015 Cbc With Differential Ord2 [place] ABS# 0.2 K/ul 03/19/2015 Cbc With Differential [...] Ord30 C/HDL 3.2 Ratio 09/29/2014 Comp Metabolic Wsw625 NA 139 mEq/L 09/29/2014 Comp Metabolic Fvx165 K 4.1 mEq/L 09/29/2014 Comp Metabolic Jwb735 CL 104 mEq/L 09/29/2014 Comp Metabolic Joi071 CO2 31.0 mEq/L 09/29/2014 Comp Metabolic Arr769 AN ION GAP 8 09/29/2014 Comp Metabolic Vgw987 GL UCOSE 96 mg/dL 09/29/2014 Comp Metabolic Rxb646 Cr eat 0.8 mg/dL 09/29/2014 Comp Metabolic Jba256 eG FR 71 ml/min/1.73m2 09/29 Comp Metabolic Zxh947 BUN 13 mg/dL 09/29/2014 Comp Metabolic Imn553 B/ C Ratio 15.5 Ratio 09/29/2014 Comp Metabolic Pzi552 CA LCIUM 9.5 mg/dL 09/29/2014 Comp Metabolic Cyv912 AL K PHOS 42 U/L 09/29/2014 Comp Metabolic Qei256 T(SGOT) 20 U/L 09/29/2014 Comp Metabolic Mct358 AL T(SGPT) 26 U/L 09/29/2014 Comp Metabolic Xxj559 BI LI T 0.5 mg/dL 09/29/2014 Comp Metabolic Ytk651 AL BUMIN 4.4 g/dL 09/29/2014 Comp Metabolic Puh871 TP RO 6.5 g/dL 09/29/2014 Comp Metabolic Lmh340 GL OB 2.1 g/dL 09/29/2014 Comp Metabolic Nax337 A/ G Ratio 2.1 Ratio 09/29/2014 Comp Metabolic Zzi886 Os mo 278 mOsmo 09/29/2014 Tsh Ord6 [...] General 1995 Genitourinary cervix Overall: surgically absent 11/30/2012 None [...] benign 05/31/2012 None Full Exam - General 1995 Neurologic gait Overall: no ataxia, no unsteadiness [...] distribution 08/21/2011 None Full Exam - General 1995 Genitourinary labia and vagina Overall: no lesions 08/21/2011 None Full Exam - General 1994 Genitourinary adnexa/parametria Overall: surgically absent 08/21/2011 None Full Exam - General 1995 Genitourinary urethra Overall: no masses 08/21/2011 None Full Exam - General 1995 Musculoskeletal [...] PRSV 4 VA L 3 YRS+ CPT-4: 75164 10/23/2017 ADMIN INFLUENZA VIRU S VAC CPT-4: G0008 10/23/2017 THER/PROPH/DIAG INJ SC/IM CPT-4: 32716 03/11/2017 TRIAMCINOLONE ACET I [place] NOS CPT-4: J3301 03/11/2017 FLU VAC NO PRSV 4 VA L 3 YRS+ CPT-4: 31799 12/09/2016 ADMIN INFLUENZA VIRU S VAC CPT-4: G0008 12/09/2016 URINALYSIS NONAUTO W /O SCOPE CPT-4: 07217 11/13/2015 IMMUNIZATION ADMIN CPT- 4: 83027 11/13/2015 FLU VACC 4 [place] 3 YRS PLUS IM SNOMED CT: 25621209 CPT-4: 32699 11/13/2015 PPPS, SUBSEQ VISIT CPT- 4: G0439 10/10/2015 IMMUNIZATION ADMIN CPT- 4: 14364 11/25/2011 Influenza Virus Vacc ine, Split Virus, >3 Yrs, IM CPT-4: 43833 11/25/2011 ADMIN INFLUENZA VIRU S VAC CPT-4: G0008 12/19/2010 FLULAVAL VACC, 3 YRS & >, IM CPT-4: Q2036 12/19/2010 Vital Signs Date Vital 02/11/2018 Blood Pressure 1: 130/70 Code: 8480-6 BMI: 35.1 Code: 40041-0 Heart Rate 1: 64 bpm Height: 5'3" SpO2: 95% Weight: 198 lbs 10/23/2017 Blood Pressure 1: 124/66 Code: 8480-6 BMI: 34.7 Code: 61809-4 Heart Rate 1: 67 bpm Height: 5'3" SpO2: 95% Weight: 196 lbs 08/13/2017 Blood Pressure 1: 128/82 Code: 8480-6 BMI: 34.7 Code: 81470-8 Heart Rate 1: 74 bpm Height: 5'3" SpO2: 95% Weight: 196 lbs 07/16/2017 Blood Pressure 1: 126/80 Code: 8480-6 BMI: 34.7 Code: 74724-1 Heart Rate 1: 62 bpm Height: 5'3" SpO2: 96% Weight: 196 lbs 06/29/2017 Blood Pressure 1: 122/70 Code: 8480-6 BMI: 35.1 Code: 39594-2 Heart Rate 1: 74 bpm Height: 5'3" SpO2: 94% Weight: 198 lbs 05/01/2017 Blood Pressure 1: 120/68 Code: 8480-6 BMI: 35.1 Code: 20449-4 Heart Rate 1: 76 bpm Height: 5'3" SpO2: 98% Weight: 198 lbs 04/24/2017 Blood Pressure 1: 142/80 Code: 8480-6 BMI: 35.1 Code: 28552-1 Heart Rate 1: 75 bpm Height: 5'3" SpO2: 98% Weight: 198 lbs 03/11/2017 Blood Pressure 1: 128/74 Code: 8480-6 BMI: 34.9 Code: 10390-6 Heart Rate 1: 68 bpm Height: 5'3" SpO2: 96% Weight: 197 lbs 02/19/2017 Blood Pressure 1: 108/62 Code: 8480-6 BMI: 34.9 Code: 24488-9 Heart Rate 1: 74 bpm Height: 5'3" SpO2: 97% Weight: 197 lbs 10/16/2016 Blood Pressure 1: 130/72 Code: 8480-6 BMI: 34.5 Code: 63636-3 Heart Rate 1: 65 bpm Height: 5'3" SpO2: 978% Weight: 194 lbs 8 oz 06/19/2016 Blood Pressure 1: 134/80 Code: 8480-6 BMI: 32.9 Code: 30767-6 Heart Rate 1: 69 bpm Height: 5'3" SpO2: 98% Weight: 186 lbs 03/13/2016 Blood Pressure 1: 118/74 Code: 8480-6 BMI: 32.4 Code: 28187-0 Heart Rate 1: 71 bpm Height: 5'3" SpO2: 96% Weight: 183 lbs 02/22/2016 Blood Pressure 1: 116/64 Code: 8480-6 BMI: 31.5 Code: 05420-0 Heart Rate 1: 71 bpm Height: 5'3" SpO2: 99% Weight: 178 lbs 12/18/2015 Blood Pressure 1: 94/60 Code: 8480-6 BMI: 31.1 Code: 87534-9 Heart Rate 1: 72 bpm Height: 5'3" SpO2: 99% Weight: 175 lbs 8 oz 11/13/2015 Blood Pressure 1: 104/64 Code: 8480-6 BMI: 32.4 Code: 84750-1 Heart Rate 1: 66 bpm Height: 5'3" SpO2: 97% Weight: 183 lbs 10/10/2015 Blood Pressure 1: 112/67 Code: 8480-6 BMI: 32.6 Code: 16410-6 Heart Rate 1: 78 bpm Height: 5'3" SpO2: 97% Weight: 184 lbs 07/23/2015 Blood Pressure 1: 10864 Code: 8480-6 Blood Pressure 1: 10464 Code: 8480-6 Heart Rate 1: 70 bpm SpO2: 97% 07/10/2015 Blood Pressure 1: 118/64 Code: 8480-6 BMI: 32.6 Code: 77528-5 Heart Rate 1: 61 bpm Height: 5'3" SpO2: 98% Weight: 184 lbs 06/05/2015 Blood Pressure 1: 164/70 Code: 8480-6 BMI: 32.4 Code: 60207-2 Heart Rate 1: 68 bpm Height: 5'3" SpO2: 97% Weight: 183 lbs 05/01/2015 Blood Pressure 1: 150/78 Code: 8480-6 BMI: 32.4 Code: 44559-6 Heart Rate 1: 87 bpm Height: 5'3" SpO2: 95% Weight: 183 lbs 04/09/2015 Blood Pressure 1: 158/68 Code: 8480-6 BMI: 32.9 Code: 93488-3 Heart Rate 1: 78 bpm Height: 5'3" SpO2: 97% Weight: 186 lbs 03/26/2015 Blood Pressure 1: 140/76 Code: 8480-6 BMI: 33.7 Code: 75265-2 Heart Rate 1: 64 bpm Height: 5'3" SpO2: 98% Weight: 190 lbs 11/17/2014 Blood Pressure 1: 146/80 Code: 8480-6 BMI: 33.5 Code: 94627-2 Heart Rate 1: 60 bpm Height: 5'3" SpO2: 97% Weight: 189 lbs 10/31/2014 Blood Pressure 1: 130/72 Code: 8480-6 BMI: 33.7 Code: 12968-7 Heart Rate 1: 59 bpm Height: 5'3" SpO2: 96% Weight: 190 lbs 09/28/2014 Blood Pressure 1: 130/86 Code: 8480-6 Blood Pressure 1: 130/72 Code: 8480-6 BMI: 33.7 Code: 65486-5 Heart Rate 1: 58 bpm Height: 5'3" SpO2: 97% Weight: 190 lbs 08/31/2014 Blood Pressure 1: 122/84 Code: 8480-6 BMI: 34.0 Code: 89385-7 Height: 5'3" Weight: 192 lbs 05/29/2014 Blood Pressure 1: 120/68 Code: 8480-6 BMI: 33.8 Code: 95151-0 Heart Rate 1: 87 bpm Height: 5'3" SpO2: 97% Weight: 191 lbs 11/29/2013 Blood Pressure 1: 138/76 Code: 8480-6 BMI: 33.8 Code: 37679-4 Heart Rate 1: 68 bpm Height: 5'3" Weight: 191 lbs 10/04/2013 Blood Pressure 1: 140/88 Code: 8480-6 BMI: 33.1 Code: 57683-3 Heart Rate 1: 72 bpm Height: 5'3" Weight: 187 lbs 05/31/2013 Blood Pressure 1: 132/84 Code: 8480-6 Heart Rate 1: 60 bpm Weight: 191 lbs 11/30/2012 Blood Pressure 1: 128/72 Code: 8480-6 BMI: 33.5 Code: 97808-3 Heart Rate 1: 72 bpm Height: 5'3" Weight: 189 lbs 05/31/2012 Blood Pressure 1: 126/66 Code: 8480-6 BMI: 35.1 Code: 94520-3 Heart Rate 1: 72 bpm Height: 5'3" Weight: 198 lbs 11/25/2011 Blood Pressure 1: 156/80 Code: 8480-6 BMI: 34.2 Code: 37966-6 Heart Rate 1: 64 bpm Height: 5'3" Weight: 196 lbs 08/21/2011 Blood Pressure 1: 118/78 Code: 8480-6 Heart Rate 1: 68 bpm Respiratory Rate: 16 bpm Weight: 184 lbs 04/14/2011 Blood Pressure 1: 128/68 Code: 8480-6 BMI: 34.2 Code: 75943-6 Heart Rate 1: 56 bpm Height: 5'3" Respiratory Rate: 20 bpm Weight: 193 lbs 10/14/2010 Blood Pressure 1: 124/72 Code: 8480-6 BMI: 30.9 Code: 07706-1 Heart Rate 1: 60 bpm Height: 5'4" [...] 03/11/2017 None rash Location-Head/Neck on the left hindu 03/11/2017 None rash Location-Head/Neck on the right [...] dizziness 11/29/2013 1 episode reported last w [place] hypertension Pertinent Findings Denies dyspnea 11/29/2013 None [...] Encounters Encounter Performer Loca tion Codes Date ([id number]) [id number] EST. P ATIENT, LEVEL IV Diagnosis: Essential (primary) hypertension[ICD10: I10] Diagnosis: Mixed hyperlipidemia[ICD10: E78.2] Diagnosis: Obstructive sleep apnea (adult) (pediatric)[ICD10: G47.33] Evelyn Yeung MD, LL C CPT-4: 17706 02/11/2018 [id number] EST. PATIENT, LEVEL III Diagnosis: Plantar wart[ICD10: B07.0] Diagnosis: Contusion of right upper arm, initial encounter[ICD10: S40.021A] Diagnosis: Corns and callosities[ICD10: L84] Diagnosis: VACCIN FOR INFLUENZA[ICD10: Z23] Fay Yeung MD, [facility] CPT-4: 04120 10/23/2017 ([id number]) [id number] EST. P ATIENT, LEVEL IV Diagnosis: Essential (primary) hypertension[ICD10: I10] Diagnosis: Corns and callosities[ICD10: L84] Diagnosis: Mixed hyperlipidemia[ICD10: E78.2] Evelyn Yeung MD, [facility] CPT- 4: 89667 08/13/2017 ([id number]) 88571 EST. P ATIENT, LEVEL III Diagnosis: Essential (primary) hypertension[ICD10: I10] Diagnosis: Corns and callosities[ICD10: L84] Kat Yeung MD, [facility] CPT- 4: 29992 07/16/2017 ([id number]) 36239 EST. P ATIENT, LEVEL III Diagnosis: Pain in right toe(s)[ICD10: M79.674] Diagnosis: Corns and callosities[ICD10: L84] Kat Yeung MD, [facility] CPT- 4: 43981 06/29/2017 ([id number]) Miscellaneou s no charge Diagnosis: Cough[ICD10: R05] Diagnosis: Other allergic rhinitis[ICD10: J30.89] Diagnosis: Acute bronchitis, unspecified[ICD10: J20.9] Kat Yeung MD, [facility] CPT-4: 91382 05/01/2017 23278 EST. PATIENT, LEVEL IV Diagnosis: Cough[ICD10: R05] Diagnosis: Other acute sinusitis[ICD10: J01.80] Diagnosis: Other allergic rhinitis[ICD10: J30.89] Fay Yeung MD, [facility] CPT-4: 87348 04/24/2017 80848 EST. PATIENT, LEVEL III Diagnosis: Rash and other nonspecific skin eruption[ICD10: R21] Fay Yeung MD, [facility] CPT-4: 61203 03/11/2017 ([id number]) 31315 EST. P ATIENT, LEVEL IV Diagnosis: Essential (primary) hypertension[ICD10: I10] Diagnosis: Mixed hyperlipidemia[ICD10: E78.2] Evelyn Yeung MD, [facility] CPT- 4: 90367 02/19/2017 ([id number]) 46484 EST. P ATIENT, LEVEL IV Diagnosis: Encounter for screening mammogram for malignant neoplasm of breast[ICD10: Z12.31] Diagnosis: Essential (primary) hypertension[ICD10: I10] Diagnosis: Mixed hyperlipidemia[ICD10: E78.2] Evelyn Yeung MD, [facility] CPT- 4: 73902 10/16/2016 ([id number]) 02045 EST. P ATIENT, LEVEL IV Diagnosis: Essential (primary) hypertension[ICD10: I10] Diagnosis: Primary central sleep apnea[ICD10: G47.31] Diagnosis: Low back pain[ICD10: M54.5] Evelyn Yeung MD, [facility] CPT-4: 95389 06/19/2016 ([id number]) 82341 EST. P ATIENT, LEVEL III Diagnosis: Pain in left shoulder[ICD10: M25.512] Diagnosis: Pain in left upper arm[ICD10: M79.622] Kat Yeung MD, [facility] CPT-4: 88962 03/13/2016 ([id number]) 98307 EST. P ATIENT, LEVEL III Diagnosis: Essential (primary) hypertension[ICD10: I10] Diagnosis: Pain in left shoulder[ICD10: M25.512] Kat Yeung MD, [facility] CPT-4: 02243 02/22/2016 ([id number]) 18294 EST. P ATIENT, LEVEL III Diagnosis: Orthostatic hypotension[ICD10: I95.1] Evelyn Yeung MD, [facility] CPT-4: 03523 12/18/2015 ([id number]) 25273 EST. P ATIENT, LEVEL III Diagnosis: Essential (primary) hypertension[ICD10: I10] Diagnosis: Dysuria[ICD10: R30.0] Diagnosis: VACCIN FOR INFLUENZA[ICD10: Z23] Evelyn Yeung MD, [facility] CPT-4: 43113 11/13/2015 ([id number]) Miscellaneou s no charge Diagnosis: Essential (primary) hypertension[ICD10: I10] Kat Yeung MD, [facility] CPT-4: 03127 07/23/2015 ([id number]) 86364 EST. P ATIENT, LEVEL III Diagnosis: Essential (primary) hypertension[ICD10: I10] Evelyn Yeung MD, C CPT-4: 37680 07/10/2015 ([id number]) 27911 EST. P ATIENT, LEVEL IV Diagnosis: Essential (primary) hypertension[ICD10: I10] Diagnosis: Primary central sleep apnea[ICD10: G47.31] Diagnosis: Anemia, unspecified[ICD10: D64.9] Evelyn Yeung MD, [facility] CPT-4: 74258 06/05/2015 ([id number]) 29607 EST. P ATIENT, LEVEL III Diagnosis: Essential (primary) hypertension[ICD10: I10] Evelyn Yeung MD, [facility] CPT-4: 36608 05/01/2015 66726 EST. PATIENT, LEVEL III Diagnosis: Pain in right knee[ICD10: M25.561] Diagnosis: Essential (primary) hypertension[ICD10: I10] Diagnosis: Encounter for follow-up examination after completed treatment for conditions other than malignant neoplasm[ICD10: Z09] Fay Yeung MD, [facility] CPT-4: 83245 04/09/2015 ([id number]) 95919 EST. P ATIENT, LEVEL IV Diagnosis: Essential (primary) hypertension[ICD10: I10] Diagnosis: Pain in right knee[ICD10: M25.561] Evelyn Yeung MD, [facility] CPT- 4: 82003 03/26/2015 ([id number]) 42706 EST. P ATIENT, LEVEL III Diagnosis: Left upper quadrant pain[ICD10: R10.12] Diagnosis: Lower abdominal pain, unspecified[ICD10: R10.30] Diagnosis: Recurrent oral aphthae[ICD10: K12.0] Evelyn Yeung MD, [facility] CPT-4: 34866 11/17/2014 ([id number]) 59025 EST. P ATIENT, LEVEL III Diagnosis: Left groin pain[ICD9: 789.09] Evelyn Yeung MD, [facility] CPT-4: 37412 10/31/2014 ([id number]) 52674 EST. P ATIENT, LEVEL IV Diagnosis: ESSENTIAL HYPERTENSION[ICD9: 401.9] Diagnosis: HYPERLIPIDEMIA[ICD9: 272.4] Evelyn Yeung MD, [facility] CPT-4: 06060 09/28/2014 ([id number]) 26587 EST. P ATIENT, LEVEL III Diagnosis: CELLULITIS OF FACE[ICD9: 682.0] Tatiana Jefe Yeung MD, [facility] CPT-4: 17096 08/31/2014 ([id number]) 71910 EST. P ATIENT, LEVEL IV Diagnosis: ESSENTIAL HYPERTENSION[ICD9: 401.9] Diagnosis: Hyperlipidemia[ICD9: 272.4] Diagnosis: Reyes's cyst of knee[ICD9: 727.51] Evelyn Yeung MD, [facility] CPT- 4: 23402 05/29/2014 ([id number]) 37392 EST. P ATIENT, LEVEL III Diagnosis: ESSENTIAL HYPERTENSION[ICD9: 401.9] Diagnosis: HYPERLIPIDEMIA[ICD9: 272.4] Evelyn Yeung MD, [facility] CPT-4: 68195 11/29/2013 ([id number]) 89278 EST. P ATIENT, LEVEL III Diagnosis: CELLULITIS OF FACE[ICD9: 682.0] Evelyn Yeung MD, [facility] CPT-4: 17517 10/04/2013 ([id number]) 78815 EST. P ATIENT, LEVEL IV Diagnosis: ESSENTIAL HYPERTENSION[SNOMED: 58494223] Diagnosis: HYPERLIPIDEMIA[ICD9: 272.4] Evelyn Yeung MD [facility] CPT-4: 91566 05/31/2013 ([id number]) 49139 EST. P ATIENT, LEVEL III Diagnosis: ESSENTIAL HYPERTENSION[SNOMED: 94841785] Diagnosis: ABN FINDINGS NEC[ICD9: 796.9] Evelyn Yeung MD [facility] CPT-4: 12143 11/30/2012 ([id number]) 77756 EST. P ATIENT, LEVEL IV Diagnosis: ESSENTIAL HYPERTENSION[SNOMED: 09537191] Diagnosis: HYPERLIPIDEMIA[ICD9: 272.4] Diagnosis: Abnormal Pap smear[ICD9: 796.9] Evelyn Yeung MD, [facility] CPT-4: 08787 05/31/2012 ([id number]) 18350 EST. P ATIENT, LEVEL III Diagnosis: Abnormal Pap smear[ICD9: 796.9] Diagnosis: ESSENTIAL HYPERTENSION[SNOMED: 56667374] Evelyn Yeung MD, C CPT-4: 00629 11/25/2011 ([id number]) 34113 EST. 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 P ATIENT, LEVEL IV Diagnosis: ESSENTIAL HYPERTENSION[SNOMED: 54766567] Diagnosis: Hyperlipidemia[ICD9: 272.4] Diagnosis: Annual physical exam[ICD9: V70.0] Evelyn Yeung MD, [facility] CPT-4: 21253 04/14/2011 26751 EST. PATIENT, LEVEL III Diagnosis: ESSENTIAL HYPERTENSION[SNOMED: 04852652] Diagnosis: Dyspareunia, female[ICD9: 625.0] Evelyn Yeung MD, [facility] CPT-4: 41810 10/14/2010 Plan of Care Planned Activity Notes [...] the cpap. 02/11/2018 Appointment: Evelyn Yeung WPtel: [address] [place], [place] [phone] [place] (15 min) Moderate 02/11/2018 Patient Education: Patient [...] no improvement 10/23/2017 Appointment: Fay [facility] (15 min) Moderate 10/23/2017 Patient Education: Patient [...] to assure normal liver response to medications. [place] on 4th toe right foot lateral surface - removed with scalpel. 08/13/2017 Appointment: Evelyn Yeung WPtel: [phone] [facility] (15 min) Moderate 08/13/2017 Patient Education: Patient Medication Summary Completed 08/13/2017 Visit Plan: HAO-djobjswaay-xv goldberg es Callus right toe -healed-no further treatment indicated 07/16/2017 Appointment: Kat Mitchell WPtel: [address] [place], [place] [phone] (15 min) Moderate 07/16/2017 Patient Education: Patient Medication Summary Completed 07/16/2017 Appointment: Kat Mitchell WPtel: [address] [place], [place] [phone] (15 min) Moderate 07/14/2017 Visit Plan: Callus-right 4th toe-de brided today in the office-instructed patient on wound care and to call if symptoms do not resolve or if any worse-patient verbalized understanding of plan. 06/29/2017 Appointment: Kat Mitchell WPtel: [phone] (15 min) Moderate 06/29/2017 Patient Education: Patient Medication Summary Completed 06/29/2017 Visit Plan: Bronchitis-cough Discus sed natural and expected course of this diagnosis and need to alert me if symptoms do not follow expected course, or if any worse. RX sent to patient's pharmacy. 05/01/2017 Appointment: Kat Mitchell WPtel: [address] [place], [place] [phone] (10 min) Simple 05/01/2017 Patient Education: Patient [...] allergy spray. 04/24/2017 Appointment: Fay Marie WPtel: [facility] (15 min) Moderate 04/24/2017 Patient Education: Patient [...] warmth, discharge. 03/11/2017 Appointment: Fay Marie WPtel: [phone] [facility] (30 min) Complex 03/11/2017 Patient Education: [...] to medications. 02/19/2017 [phone] ([facility] min) Moderate 02/19/2017 Patient [...] medications. 10/16/2016 Appointment: [facility] [phone] [facility] (15 min) Moderate 10/16/2016 [...] monitor symptoms. 06/19/2016 Appointment: Evelyn Yeung WPtel[facility] [place] (15 min) Moderate 06/19/2016 Patient Education: Patient Medication Summary Completed 06/19/2016 Patient Education: Obesity Completed 06/19/2016 Visit Plan: Left shoulder pain-adriana ent has done rest, ice, and anti inflammatories-shoulder pain persists and causing weakness in left arm- will xray shoulder/humerus and proceed with MRI if indicated-patient verbalized understanding of plan. 03/13/2016 Appointment: [facility] Mitchell [facility] [phone] [phone] [place] (15 min) Moderate 03/13/2016 Appointment: [facility] [phone] [facility] [place] (15 min) Moderate 03/13/2016 [...] home. 02/22/2016 Appointment: Kat Mitchell WPtel: [phone] [phone] [place] (15 min) Moderate 02/22/2016 Patient Education: Patient Medication Summary Completed 02/22/2016 Patient Education: Obesity Completed 02/22/2016 Appointment: Kat Mitchell WPtel: [phone] [phone] [place] (30 min) Complex 02/06/2016 Visit Plan: HYPOTENSION - RECOMMEND ED PT TO DECREASE THE LISIONPRIL TO 20MG ONE TIME DAILY. 12/18/2015 Appointment: Evelyn Yeung WPtel: [facility] (15 min) Moderate 12/18/2015 Patient Education: [...] at home. 11/13/2015 Appointment: Evelyn Yeung WPtel: [facility] [place] (15 min) Moderate 11/13/2015 Patient Education: [...] surrogate. 10/10/2015 Appointment: Kat Mitchell WPtel: [phone] [phone] (30 min) Complex 10/10/2015 Patient Education: [...] home. 07/10/2015 Appointment: Evelyn Yeung WPtel: [phone] [facility] (15 min) Moderate 07/10/2015 Patient Education: [...] cpap 06/05/2015 Appointment: Evelyn Yeung WPtel: [phone] [facility] (15 min) Moderate 06/05/2015 Patient Education: Patient [...] Hypertension Completed 04/09/2015 Appointment: Evelyn Yeung WPtel: [facility] (15 min) Moderate 03/29/2015 Visit [...] to medications. 09/28/2014 Appointment: Evelyn Yeung WPtel: [address] [place], [place] [id number] Follow up 09/28/2014 Patient Education: Patient Medication Summary Completed 09/28/2014 Patient Education: Hypertension Completed 09/28/2014 Care Plan: COMPLETE CBC [facility]ATED [facility] : 71877-0 Ordered 09/28/2014 Visit Plan: Cellulitis - RX [...] at rest. 05/29/2014 Appointment: [facility] [phone] [facility] Follow up 05/29/2014 Patient Education: [...] to medications. 11/29/2013 Appointment: Evelyn Yeung WPtel: [facility] Follow up 11/29/2013 Patient Education: Patient Medication Summary Completed 11/29/2013 Patient Education: Hypertension Completed 11/29/2013 Care Plan: COMPLETE CBC AUTOMATED LOINC : 24769-2 Ordered 11/29/2013 Visit Plan: Cellulitis - continue w ith oral antibiotics as previously directed, return to clinic as previously directed, call for acute change in symptoms, worsening redness, warmth, discharge. 10/04/2013 Appointment: Evelyn Yeung WPtel: [facility] [facility] 10/04/2013 Patient Education: Patient Medication Summary Completed [...] 6 months 05/31/2013 Appointment: [facility] [phone] [facility] [place] Follow up 05/31/2013 Patient Education: Patient [...] 2 years. 11/30/2012 Appointment: [facility]el[facility] [phone] [facility] [place] Pap Only 11/30/2012 Patient [...] of 2011. 05/31/2012 Appointment: [phone] [facility] [place] Pap Only 05/31/2012 Patient Education: [...] at home. 11/25/2011 Appointment: [facility]el: [phone] [facility] [place] Pap Only 11/25/2011 Patient Education: Patient Medication Summary Completed 11/25/2011 Patient Education: High Blood Pressure: Essential Hypertension Completed 11/25/2011 Appointment: Evelyn Yeung WPtel: [phone] [facility] [place] Pap Only 09/01/2011 Appointment: Evelyn Yeung WPtel: [phone] [facility] [place] Pap Only 08/26/2011 Visit Plan: Hypertension [...] hot flashes. 08/21/2011 Appointment: [facility] [phone] [facility] [place] Pap Only 08/21/2011 Patient Education: Patient Medication Summary Completed 08/21/2011 Patient Education: High Blood Pressure: Essential Hypertension Completed 08/21/2011 Appointment: [facility]Ptel: [phone] [facility] [place] Other 04/16/2011 Visit [...] or prn. 04/14/2011 Appointment: Evelyn Yeung WPtel: [facility] [place] Pap Only 04/14/2011 Patient Education: Patient Medication Summary Completed 04/14/2011 Patient Education: High Blood Pressure: Essential Hypertension Completed 04/14/2011 Appointment: Evelyn Yeung WPtel: [facility] [place] Injection 12/19/2010 Patient Education: Patient Medication Summary Completed 12/19/2010 Visit Plan: Hypertension - well asiya milianed - continue with current medications, continue with no added salt diet. Pt has been encouraged to exercise daily. The pt has been advised to call the office if there are any acute concerns about change in blood pressure readings at home. Pain with intercourse- advised TREVA mabry to decrease discomfort. 10/14/2010 Appointment: Ev[facility]el[facility] [phone] [facility] [place] Other 10/14/2010 Patient Education: [...] to assure normal liver response to medications. [place] on 4th toe right foot lateral surface [...] assure normal liver response to medications. . Sinusitis - Pt has acute infection [...] Abdominal pain-LUQ and LLQ-schedule abdominal ultrasound . MTP-oytsxtxwlk-ao changes Callus right toe -healed-no further treatment [...] . Left groin pain-Dr Yeung in to eval uate patient-no palpable abnormality today in the [...]
--- OUTSIDE RECORDS SUMMARY | 2019-07-08 08:20 | XMS REPORT | CCD ---
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/14/[address]: 827726722 Never smoker 10/14/[address]: 747177865 Never drinks alcohol 10/14/2010 Has the patient [...] E R 10 mEq capsule,extended release RxNorm: 773100 1 Capsule(s) PO TIW TAKE 1 CAPSULE THREE TIMES WEEKLY 04/23/2018 04/17/2019 Active three times weekly- sent on 04/21/18- requested again 04/23/18 potassium chloride E R 10 mEq capsule,extended release RxNorm: 485732 1 Capsule(s) PO TIW TAKE 1 CAPSULE THREE TIMES WEEKLY 04/21/2018 04/22/2018 Inactive thre e times weekly chlorthalidone 25 mg tablet RxNorm: 477689 Tablet(s) TAKE 1 TABL ET EVERY MORNING 03/26/2018 03/20/2019 Ac tive simvastatin 20 mg ta blet RxNorm: 716609 Tablet(s) TAKE 1 TABL ET EVERY NIGHT 03/26/2018 03/20/2019 Ac tive lisinopril 20 mg tablet RxNorm: 031560 1 Tablet(s) PO daily 02/11/2018 05/06/2019 Active this is an update on her RX - she is onl y taking 20mg daily -please delete other rx's lisinopril 20 mg tablet RxNorm: 919743 1 Tablet(s) PO daily 11/20/2017 02/10/2018 Inactive lisinopril 40 mg tablet RxNorm: 215425 Tablet(s) TAKE 1 TABLET EVERY DAY 11/16/2017 11/19/2017 In active metoprolol succinate ER 50 mg tablet,extended release 24 hr RxNorm: 029278 Tablet(s) TAKE 1 TABLET TWICE DAILY 06/05/2017 05/30/2018 Active metoprolol succinate ER 50 mg tablet,extended release 24 hr RxNorm: 249484 Tablet(s) TAKE 1 TABLET TWICE DAILY 06/05/2017 06/04/2017 Inactive potassium chloride E R 10 mEq capsule,extended release RxNorm: 723435 1 Capsule(s) PO TIW TAKE 1 CAPSULE THREE TIMES WEEKLY 05/07/2017 04/20/2018 Inactive thre e times weekly potassium chloride E R 10 mEq capsule,extended release RxNorm: 482819 1 Capsule(s) PO daily TAKE 1 CAPSULE THREE TIMES WEEKLY 05/05/2017 05/06/2017 Inactive metoprolol succinate ER 50 mg tablet,extended release 24 hr RxNorm: 499063 Tablet(s) TAKE 1 TABLET TWICE DAILY 05/04/2017 06/04/2017 Inactive Phenergan with Codei ne Syrup RxNorm: 5-10 Milliliter(s) PO QID a s needed cough 05/01/2017 No Stop Date Active cefdinir 300 mg capsule RxNorm: 475875 1 Capsule(s) PO BID 05/01/2017 05/07/2017 Inactive Zithromax Z-Doroteo 250 mg tablet RxNorm: 380747 1 Tablet(s) PO UD 04/24/2017 06/22/2017 Inactive Phenergan with Codei ne Syrup RxNorm: 5-10 Milliliter(s) PO QID a s needed cough 04/24/2017 04/30/2017 In active prednisone 20 mg tablet RxNorm: 206400 2 Tablet(s) PO daily 04/24/2017 04/28/2017 Inactive chlorthalidone 25 mg tablet RxNorm: 054382 Tablet(s) TAKE 1 TABL ET EVERY MORNING 04/13/2017 03/25/2018 In active simvastatin 20 mg ta blet RxNorm: 620528 Tablet(s) TAKE 1 TABL ET EVERY NIGHT 04/08/2017 03/25/2018 In active Kenalog 40 mg/mL wander pension for injection RxNorm: 9320071 1 Milliliter(s) Inj 03/11/2017 03/11/2017 In active prednisone 20 mg tablet RxNorm: 022858 2 Tablet(s) PO daily 03/11/2017 03/15/2017 Inactive simvastatin 20 mg ta blet RxNorm: 157102 TAKE 1 TABLET EVERY DAY 01/02/2017 04/07/2017 Inactive lisinopril 40 mg tablet RxNorm: 944179 TAKE 1 TABLET EVERY DAY 11/24/2016 08/20/2017 Inactive metoprolol succinate ER 50 mg tablet,extended release 24 hr RxNorm: 489359 TAKE 1 TABLET TWICE DAILY 11/24/2016 05/03/2017 Inactive fluconazole 150 mg t ablet RxNorm: 808687 1 Tablet(s) PO daily prn yeast infection symptoms 10/16/2016 10/25/2016 Inactive potassium chloride E R 10 mEq capsule,extended release RxNorm: 281664 TAKE 1 CAPSULE THREE TIMES WEEKLY 08/12/2016 05/04/2017 Inactive chlorthalidone 25 mg tablet RxNorm: 178002 TAKE 1 TABLET EVERY M ORNING 06/30/2016 04/12/2017 In active simvastatin 20 mg ta blet RxNorm: 073250 TAKE 1 TABLET EVERY DAY 01/21/2016 01/01/2017 Inactive lisinopril 40 mg tablet RxNorm: 121498 1/2 Tablet(s) daily 12/18/2015 11/23/2016 Inactive metoprolol succinate ER 50 mg tablet,extended release 24 hr RxNorm: 880770 Tablet(s) TAKE 1 TABLET TWICE DAILY 12/13/2015 11/23/2016 Inactive metoprolol succinate ER 50 mg tablet,extended release 24 hr RxNorm: 118275 Tablet(s) TAKE 1 TABLET TWICE DAILY 12/13/2015 12/12/2015 Inactive metoprolol succinate ER 50 mg tablet,extended release 24 hr RxNorm: 857234 Tablet(s) TAKE 1 TABLET TWICE DAILY 11/13/2015 12/12/2015 Inactive Keflex 500 mg capsule RxNorm: 636086 1 Capsule(s) PO TID 11/13/2015 11/19/2015 Inactive chlorthalidone 25 mg tablet RxNorm: 263856 1 Tablet(s) PO QAM 08/08/2015 06/29/2016 Inactive potassium chloride E R 10 mEq capsule,extended release RxNorm: 262986 1 Capsule(s) PO TIW 08/08/2015 08/01/2016 Inactive potassium chloride E R 10 mEq capsule,extended release RxNorm: 867264 1 Capsule(s) PO TIW 06/20/2015 08/07/2015 Inactive lisinopril 40 mg tablet RxNorm: 590087 TAKE 1 TABLET EVERY DAY 2015 12/17/2015 Inactive potassium chloride E R 10 mEq capsule,extended release RxNorm: 480302 1 Capsule(s) PO TIW 2015 06/19/2015 Inactive chlorthalidone 25 mg tablet RxNorm: 454695 1 Tablet(s) PO QAM 06/05/2015 08/07/2015 Inactive potassium chloride E R 10 mEq capsule,extended release RxNorm: 742651 1 Capsule(s) PO TIW 06/05/2015 06/17/2015 Inactive lisinopril 40 mg tablet RxNorm: 826414 1/2 Tablet(s) PO BID 05/07/2015 06/17/2015 Inactive amoxicillin 500 mg t ablet RxNorm: 249186 4 Tablet(s) PO one ho ur prior to dental appts UD 05/07/2015 10/08/2015 Inactive amoxicillin 500 mg t ablet RxNorm: 183339 4 Tablet(s) PO one ho ur prior to dental appts UD 05/04/2015 05/06/2015 Inactive lisinopril 40 mg tablet RxNorm: 899810 1/2 Tablet(s) PO BID 05/04/2015 05/06/2015 Inactive amoxicillin 500 mg t ablet RxNorm: 229612 4 Tablet(s) PO one ho ur prior to dental appts UD 05/01/2015 05/03/2015 Inactive lisinopril 40 mg tablet RxNorm: 967597 1/2 Tablet(s) PO BID TAKE 1 TABLET DAILY 05/01/2015 05/03/2015 In active metoprolol succinate ER 50 mg tablet,extended release 24 hr RxNorm: 334931 TAKE 1 AND 1/2 TABLETS TWICE DAILY 04/16/2015 11/12/2015 Inactive simvastatin 20 mg ta blet RxNorm: 230998 TAKE 1 TABLET EVERY DAY 04/16/2015 01/10/2016 Inactive acyclovir 800 mg tablet RxNorm: 425646 1 Tablet(s) PO TID 11/17/2014 11/26/2014 Inactive acyclovir 400 mg tablet RxNorm: 290286 2 Tablet(s) PO QID 10/06/2014 10/05/2014 Inactive acyclovir 400 mg tablet RxNorm: 927046 2 Tablet(s) PO QID 10/06/2014 10/15/2014 Inactive cephalexin 500 mg ca psule RxNorm: 591578 1 Capsule(s) PO TID 08/31/2014 09/04/2014 Inactive Bactroban 2 % topica l ointment RxNorm: 195916 1 Application TOP BID 08/31/2014 10/08/2015 Inactive Bactroban 2 % topica l ointment RxNorm: 325347 1 Application TOP BID 08/31/2014 09/04/2014 Inactive simvastatin 20 mg ta blet RxNorm: 576352 Tablet(s) TAKE 1 TABL ET DAILY 03/31/2014 04/15/2015 In active lisinopril 40 mg tablet RxNorm: 619678 Tablet(s) TAKE 1 TABLET DAILY 03/31/2014 04/30/2015 In active metoprolol succinate ER 50 mg tablet,extended release 24 hr RxNorm: 224124 Tablet(s) TAKE ONE AND ONE-HALF TABLETS (75 MG) TWICE A DAY 03/09/2014 04/15/2015 Inactive Prio r authorization approved for this med until 03-09-2015 metoprolol succinate ER 50 mg tablet,extended release 24 hr RxNorm: 356572 Tablet(s) TAKE ONE AND ONE-HALF TABLETS (75 MG) TWICE A DAY 03/06/2014 03/08/2014 Inactive simvastatin 20 mg ta blet RxNorm: 158025 TAKE 1 TABLET DAILY 01/24/2014 03/30/2014 Inactive lisinopril 40 mg tablet RxNorm: 087966 TAKE 1 TABLET DAILY 01/24/2014 03/30/2014 Inactive simvastatin 20 mg ta blet RxNorm: 242428 TAKE 1 TABLET DAILY 10/24/2013 01/23/2014 Inactive cephalexin 500 mg ca psule RxNorm: 476063 1 Capsule(s) PO TID 10/04/2013 10/08/2013 Inactive metoprolol succinate ER 50 mg tablet,extended release 24 hr RxNorm: 531824 TAKE ONE AND ONE-HALF TABLETS (75 MG) TWICE A DAY 09/16/2013 03/05/2014 Inactive simvastatin 20 mg ta blet RxNorm: 426378 Tablet(s) PO TAKE 1 T ABLET DAILY 04/21/2013 10/23/2013 In active metoprolol succinate ER 50 mg tablet,extended release 24 hr RxNorm: 084707 Tablet(s) PO TAKE ONE AND ONE-HALF TABLETS (75 MG) TWICE A DAY 03/24/2013 09/15/2013 Inactive metoprolol succinate ER 50 mg tablet,extended release 24 hr RxNorm: 279986 Tablet(s) PO TAKE ONE AND ONE-HALF TABLETS (75 MG) TWICE A DAY 12/20/2012 03/23/2013 Inactive lisinopril 40 mg tablet RxNorm: 193863 Tablet(s) PO TAKE 1 TABLET DAILY 11/18/2012 01/23/2014 In active simvastatin 20 mg ta blet RxNorm: 371952 Tablet(s) PO TAKE 1 T ABLET DAILY 08/06/2012 04/20/2013 In active metoprolol succinate ER 50 mg tablet,extended release 24 hr RxNorm: 208593 Tablet(s) PO TAKE ONE AND ONE-HALF TABLETS (75 MG) TWICE A DAY 06/15/2012 12/19/2012 Inactive metoprolol succinate ER 50 mg tablet,extended release 24 hr RxNorm: 609430 Tablet(s) PO TAKE ONE AND ONE-HALF TABLETS (75 MG) TWICE A DAY 03/01/2012 06/14/2012 Inactive Diflucan 150 mg tablet RxNorm: 329336 1 Tablet(s) PO daily 12/03/2011 12/02/2011 Inactive Diflucan 150 mg tablet RxNorm: 435919 1 Tablet(s) PO daily 12/03/2011 12/07/2011 Inactive Diflucan 150 mg tablet RxNorm: 227291 1 Tablet(s) PO daily 12/03/2011 12/02/2011 Inactive Influenza Virus Vacc ine 0.5 mL RxNorm: IM 11/25/2011 11/25/2011 Inactive metoprolol succinate ER 50 mg tablet,extended release 24 hr RxNorm: 136157 Tablet(s) PO 09/16/2011 02/29/2012 Inactive TAKE ONE AND ONE-HALF TABLETS (75 MG) TW ICE A DAY lisinopril 40 mg tablet RxNorm: 897732 Tablet(s) PO 08/25/2011 11/17/2012 Inactive TAKE 1 TABLET DAILY simvastatin 20 mg ta blet RxNorm: 316250 Tablet(s) PO 07/31/2011 08/05/2012 Inactive TAKE 1 TABLET DAILY Influenza Virus Vacc ine 0.5 mL RxNorm: 1/2 Milliliter(s) IM 12/19/2010 12/19/2010 Inactive metoprolol succinate ER 50 mg tablet,extended release 24 hr RxNorm: 562535 Tablet(s) PO 12/02/2010 09/15/2011 Inactive TAKE ONE AND ONE-HALF TABLETS (75 MG) TW ICE A DAY Calcium 600 + D(3) 6 00 mg (1,500 mg)-400 unit Tab RxNorm: 277550 1 Tablet(s) PO daily No Start Date Active Tylenol PM Extra Str ength 25 mg-500 mg Tab RxNorm: 9683006 1 Tablet(s) PO QHS No Start Date Active Probiotic & Acidophi lesa oral RxNorm: oral No Start D ate Active Fish Oil 1,200 mg-14 4 mg-216 mg Cap RxNorm: 1 Capsule(s) PO BID No Start Date Active 1400mg multivitamin Cap RxNorm: 1 Capsule(s) PO daily No Start Date Active Aspirin Childrens 81 mg Chewable Tab RxNorm: 228169 1 Tablet(s) PO daily No Start Date Active premarin 0.5% Vagina l cream RxNorm: [address] art Date 08/30/2014 Inactive simvastatin 20 mg Tab RxNorm: 192587 1 Tablet(s) PO daily No Start Date 07/30/2011 Inactive lisinopril 40 mg Tab RxNorm: 852313 1 Tablet(s) PO daily No Start Date 08/24/2011 Inactive Fish Oil 340 mg-1,00 0 mg Cap RxNorm: 1 Capsule(s) PO TID No Start Date 04/14/2011 Inactive [place] 20 mg Tab RxNorm: 183426 1 Tablet(s) PO daily No Start Date 04/14/2011 Inactive metoprolol succinate ER 50 mg 24 hr Tab RxNorm: 365258 1 &1/2 Tablet(s) PO d aily No Start Date 12/01/2010 Inactive Medication Administered Medication Codes Instruc tions Start Date Status Kenalog 40 mg/mL suspension for injection RxNorm: 2178799 1Milliliter 03/11/2017 N o longer Active Influenza [...] 30.2 pg 10/17/2016 Cbc With Differential Ord2 [place]ake% 6.3 % 10/17/2016 Cbc With Differential Ord2 [...] 1.37 K/ul 10/17/2016 Cbc With Differential Ord2 [place] ABS# 0.3 K/ul 10/17/2016 Cbc With Differential Ord2 Eos ABS# 0.2 K/ul 10/17/2016 Cbc With Differential Ord2 Baso ABS# 0.0 K/ul 10/17/2016 Comp Metabolic Kdc203 NA 141 mEq/L 10/17/2016 Comp Metabolic Mck369 K 3.9 mEq/L 10/17/2016 Comp Metabolic Rxz967 CL 105 mEq/L 10/17/2016 Comp Metabolic Fwy951 CO2 26.0 mEq/L 10/17/2016 Comp Metabolic Flh535 AN ION GAP 14 10/17/2016 Comp Metabolic Naq124 GL UCOSE 100 mg/dL 10/17/2016 Comp Metabolic Tjv023 Cr eat 1.0 mg/dL 10/17/2016 Comp Metabolic Dhm948 eG FR 61 ml/min/1.73m2 10/17 Comp Metabolic Wkr010 BUN 17 mg/dL 10/17/2016 Comp Metabolic Itq985 B/ C Ratio 17.7 Ratio 10/17/2016 Comp Metabolic Wkj179 CA LCIUM 9.8 mg/dL 10/17/2016 Comp Metabolic Nrl291 AL K PHOS 44 U/L 10/17/2016 Comp Metabolic Wes125 T(SGOT) 15 U/L 10/17/2016 Comp Metabolic Hvy441 AL T(SGPT) 16 U/L 10/17/2016 Comp Metabolic Uir235 BI LI T 0.5 mg/dL 10/17/2016 Comp Metabolic Vxb723 AL BUMIN 4.3 g/dL 10/17/2016 Comp Metabolic Bey405 TP RO 6.5 g/dL 10/17/2016 Comp Metabolic Uty521 GL OB 2.3 g/dL 10/17/2016 Comp Metabolic Ddu532 A/ G Ratio 1.9 Ratio 10/17/2016 Comp Metabolic Wur131 Os mo 283 mOsmo 10/17/2016 Lipid Ord30 CHOL 134 mg/dL 10/17/2016 Lipid Ord30 HDL 48.0 mg/dl 10/17/2016 Lipid Ord30 TRIG 123 mg/dL 10/17/2016 Lipid Ord30 LDL 61 mg/dL 10/17/2016 Lipid Ord30 C/HDL 2.8 Ratio 10/17/2016 Comp Metabolic Dxj700 NA 140 mEq/L 02/28/2016 Comp Metabolic Xny127 K 3.9 mEq/L 02/28/2016 Comp Metabolic Yja117 CL 102 mEq/L 02/28/2016 Comp Metabolic Xtp485 CO2 31.0 mEq/L 02/28/2016 Comp Metabolic Yhc863 AN ION GAP 11 02/28/2016 Comp Metabolic Xlv301 GL UCOSE 87 mg/dL 02/28/2016 Comp Metabolic Hjs249 Cr eat 1.2 mg/dL 02/28/2016 Comp Metabolic Sqn338 eG FR 45 ml/min/1.73m2 02/27 Comp Metabolic Bcg204 BUN 23 mg/dL 02/28/2016 Comp Metabolic Ilf805 B/ C Ratio 18.5 Ratio 02/28/2016 Comp Metabolic Gkw843 CA LCIUM 9.2 mg/dL 02/28/2016 Comp Metabolic Sqv042 AL K PHOS 53 U/L 02/28/2016 Comp Metabolic Qmd908 T(SGOT) 16 U/L 02/28/2016 Comp Metabolic Cce150 AL T(SGPT) 17 U/L 02/28/2016 Comp Metabolic Dxb070 BI LI T 0.5 mg/dL 02/28/2016 Comp Metabolic Qmx249 AL BUMIN 4.2 g/dL 02/28/2016 Comp Metabolic Zvl838 TP RO 6.7 g/dL 02/28/2016 Comp Metabolic Afr087 GL OB 2.5 g/dL 02/28/2016 Comp Metabolic Ibh497 A/ G Ratio 1.7 Ratio 02/28/2016 Comp Metabolic Tsp138 Os mo 282 mOsmo 02/28/2016 Cbc With [...] 30.5 pg 02/28/2016 Cbc With Differential Ord2 [place]% 5.6 % 02/28/2016 Cbc With Differential Ord2 [...] 1.21 K/ul 02/28/2016 Cbc With Differential Ord2 [place] ABS# 0.3 K/ul 02/28/2016 Cbc With Differential Ord2 Eos ABS# 0.2 K/ul 02/28/2016 Cbc With Differential Ord2 Baso ABS# 0.0 K/ul 02/28/2016 Lipid Ord30 CHOL 141 mg/dL 02/28/2016 Lipid Ord30 HDL 48.0 mg/dl 02/28/2016 Lipid Ord30 TRIG 144 mg/dL 02/28/2016 Lipid Ord30 LDL 64 mg/dL 02/28/2016 Lipid Ord30 C/HDL 2.9 Ratio 02/28/2016 Tsh Ord6 hTSH II 2.22 uIU/mL 02/28/2016 Culture Urine [id number] URI NE CULTURE SEE NOTES 11/15/2015 Urine [...] Ord30 C/HDL 2.7 Ratio 03/19/2015 Comp Metabolic Fxg614 NA 139 mEq/L 03/19/2015 Comp Metabolic Uru255 K 4.0 mEq/L 03/19/2015 Comp Metabolic Qlw659 CL 105 mEq/L 03/19/2015 Comp Metabolic Mcb344 CO2 29.0 mEq/L 03/19/2015 Comp Metabolic Djn994 AN ION GAP 9 03/19/2015 Comp Metabolic Lfv151 GL UCOSE 90 mg/dL 03/19/2015 Comp Metabolic Rah526 Cr eat 0.8 mg/dL 03/19/2015 Comp Metabolic Sxi988 eG FR 80 ml/min/1.73m2 03/19 Comp Metabolic Tzo988 BUN 14 mg/dL 03/19/2015 Comp Metabolic Reg378 B/ C Ratio 18.4 Ratio 03/19/2015 Comp Metabolic Odp596 CA LCIUM 9.5 mg/dL 03/19/2015 Comp Metabolic Taa645 AL K PHOS 39 U/L 03/19/2015 Comp Metabolic Krj278 T(SGOT) 17 U/L 03/19/2015 Comp Metabolic Ujk634 AL T(SGPT) 22 U/L 03/19/2015 Comp Metabolic Jwn927 BI LI T 0.5 mg/dL 03/19/2015 Comp Metabolic Ozj367 AL BUMIN 4.2 g/dL 03/19/2015 Comp Metabolic Mwg552 TP RO 6.3 g/dL 03/19/2015 Comp Metabolic Xlm999 GL OB 2.1 g/dL 03/19/2015 Comp Metabolic Yim933 A/ G Ratio 2.0 Ratio 03/19/2015 Comp Metabolic Hff504 Os mo 278 mOsmo 03/19/2015 Tsh Ord6 [...] 29.9 pg 03/19/2015 Cbc With Differential Ord2 [place]% 5.1 % 03/19/2015 Cbc With Differential Ord2 [...] 1.52 K/ul 03/19/2015 Cbc With Differential Ord2 [place] ABS# 0.2 K/ul 03/19/2015 Cbc With Differential [...] Ord30 C/HDL 3.2 Ratio 09/29/2014 Comp Metabolic Ljv153 NA 139 mEq/L 09/29/2014 Comp Metabolic Gho122 K 4.1 mEq/L 09/29/2014 Comp Metabolic Mbv124 CL 104 mEq/L 09/29/2014 Comp Metabolic Xgh878 CO2 31.0 mEq/L 09/29/2014 Comp Metabolic Voy431 AN ION GAP 8 09/29/2014 Comp Metabolic Wen839 GL UCOSE 96 mg/dL 09/29/2014 Comp Metabolic Ckp006 Cr eat 0.8 mg/dL 09/29/2014 Comp Metabolic Gbf007 eG FR 71 ml/min/1.73m2 09/29 Comp Metabolic Dru713 BUN 13 mg/dL 09/29/2014 Comp Metabolic Pml368 B/ C Ratio 15.5 Ratio 09/29/2014 Comp Metabolic Llf943 CA LCIUM 9.5 mg/dL 09/29/2014 Comp Metabolic Xaa346 AL K PHOS 42 U/L 09/29/2014 Comp Metabolic Guq377 T(SGOT) 20 U/L 09/29/2014 Comp Metabolic Fuj606 AL T(SGPT) 26 U/L 09/29/2014 Comp Metabolic Lsj328 BI LI T 0.5 mg/dL 09/29/2014 Comp Metabolic Jte738 AL BUMIN 4.4 g/dL 09/29/2014 Comp Metabolic Ujj215 TP RO 6.5 g/dL 09/29/2014 Comp Metabolic Iso652 GL OB 2.1 g/dL 09/29/2014 Comp Metabolic Wsi826 A/ G Ratio 2.1 Ratio 09/29/2014 Comp Metabolic Wud754 Os mo 278 mOsmo 09/29/2014 Tsh Ord6 [...] sounds 04/14/2011 None Full Exam - General 1995 Constitutional general appearance Overall: well nourished 04/14/2011 [...] unsteadiness 04/14/2011 None Full Exam - General 1995 Neurologic [...] PRSV 4 VA L 3 YRS+ CPT-4: 27383 10/23/2017 ADMIN INFLUENZA VIRU S VAC CPT-4: G0008 10/23/2017 THER/PROPH/DIAG INJ SC/IM CPT-4: 39096 03/11/2017 TRIAMCINOLONE ACET I [place] NOS CPT-4: J3301 03/11/2017 FLU VAC NO PRSV 4 VA L 3 YRS+ CPT-4: 26965 12/09/2016 ADMIN INFLUENZA VIRU S VAC CPT-4: G0008 12/09/2016 URINALYSIS NONAUTO W /O SCOPE CPT-4: 43419 11/13/2015 IMMUNIZATION ADMIN CPT- 4: 88696 11/13/2015 FLU VACC 4 [place] 3 YRS PLUS IM SNOMED CT: 18219368 CPT-4: 09568 11/13/2015 PPPS, SUBSEQ VISIT CPT- 4: G0439 10/10/2015 IMMUNIZATION ADMIN CPT- 4: 58778 11/25/2011 Influenza Virus Vacc ine, Split Virus, >3 Yrs, IM CPT-4: 61627 11/25/2011 ADMIN INFLUENZA VIRU S VAC CPT-4: G0008 12/19/2010 FLULAVAL VACC, 3 YRS & >, IM CPT-4: Q2036 12/19/2010 Vital Signs Date Vital 02/11/2018 Blood Pressure 1: 130/70 Code: 8480-6 BMI: 35.1 Code: 05890-1 Heart Rate 1: 64 bpm Height: 5'3" SpO2: 95% Weight: 198 lbs 10/23/2017 Blood Pressure 1: 124/66 Code: 8480-6 BMI: 34.7 Code: 56777-8 Heart Rate 1: 67 bpm Height: 5'3" SpO2: 95% Weight: 196 lbs 08/13/2017 Blood Pressure 1: 128/82 Code: 8480-6 BMI: 34.7 Code: 34578-2 Heart Rate 1: 74 bpm Height: 5'3" SpO2: 95% Weight: 196 lbs 07/16/2017 Blood Pressure 1: 126/80 Code: 8480-6 BMI: 34.7 Code: 09532-5 Heart Rate 1: 62 bpm Height: 5'3" SpO2: 96% Weight: 196 lbs 06/29/2017 Blood Pressure 1: 122/70 Code: 8480-6 BMI: 35.1 Code: 39756-0 Heart Rate 1: 74 bpm Height: 5'3" SpO2: 94% Weight: 198 lbs 05/01/2017 Blood Pressure 1: 120/68 Code: 8480-6 BMI: 35.1 Code: 60641-1 Heart Rate 1: 76 bpm Height: 5'3" SpO2: 98% Weight: 198 lbs 04/24/2017 Blood Pressure 1: 142/80 Code: 8480-6 BMI: 35.1 Code: 66781-8 Heart Rate 1: 75 bpm Height: 5'3" SpO2: 98% Weight: 198 lbs 03/11/2017 Blood Pressure 1: 128/74 Code: 8480-6 BMI: 34.9 Code: 94303-9 Heart Rate 1: 68 bpm Height: 5'3" SpO2: 96% Weight: 197 lbs 02/19/2017 Blood Pressure 1: 108/62 Code: 8480-6 BMI: 34.9 Code: 58012-2 Heart Rate 1: 74 bpm Height: 5'3" SpO2: 97% Weight: 197 lbs 10/16/2016 Blood Pressure 1: 130/72 Code: 8480-6 BMI: 34.5 Code: 63621-4 Heart Rate 1: 65 bpm Height: 5'3" SpO2: 978% Weight: 194 lbs 8 oz 06/19/2016 Blood Pressure 1: 134/80 Code: 8480-6 BMI: 32.9 Code: 72074-7 Heart Rate 1: 69 bpm Height: 5'3" SpO2: 98% Weight: 186 lbs 03/13/2016 Blood Pressure 1: 118/74 Code: 8480-6 BMI: 32.4 Code: 18649-1 Heart Rate 1: 71 bpm Height: 5'3" SpO2: 96% Weight: 183 lbs 02/22/2016 Blood Pressure 1: 116/64 Code: 8480-6 BMI: 31.5 Code: 97077-3 Heart Rate 1: 71 bpm Height: 5'3" SpO2: 99% Weight: 178 lbs 12/18/2015 Blood Pressure 1: 94/60 Code: 8480-6 BMI: 31.1 Code: 96515-7 Heart Rate 1: 72 bpm Height: 5'3" SpO2: 99% Weight: 175 lbs 8 oz 11/13/2015 Blood Pressure 1: 104/64 Code: 8480-6 BMI: 32.4 Code: 93216-9 Heart Rate 1: 66 bpm Height: 5'3" SpO2: 97% Weight: 183 lbs 10/10/2015 Blood Pressure 1: 112/67 Code: 8480-6 BMI: 32.6 Code: 26034-7 Heart Rate 1: 78 bpm Height: 5'3" SpO2: 97% Weight: 184 lbs 07/23/2015 Blood Pressure 1: 10864 Code: 8480-6 Blood Pressure 1: 10464 Code: 8480-6 Heart Rate 1: 70 bpm SpO2: 97% 07/10/2015 Blood Pressure 1: 118/64 Code: 8480-6 BMI: 32.6 Code: 80870-7 Heart Rate 1: 61 bpm Height: 5'3" SpO2: 98% Weight: 184 lbs 06/05/2015 Blood Pressure 1: 164/70 Code: 8480-6 BMI: 32.4 Code: 98399-2 Heart Rate 1: 68 bpm Height: 5'3" SpO2: 97% Weight: 183 lbs 05/01/2015 Blood Pressure 1: 150/78 Code: 8480-6 BMI: 32.4 Code: 24087-8 Heart Rate 1: 87 bpm Height: 5'3" SpO2: 95% Weight: 183 lbs 04/09/2015 Blood Pressure 1: 158/68 Code: 8480-6 BMI: 32.9 Code: 74576-8 Heart Rate 1: 78 bpm Height: 5'3" SpO2: 97% Weight: 186 lbs 03/26/2015 Blood Pressure 1: 140/76 Code: 8480-6 BMI: 33.7 Code: 72295-0 Heart Rate 1: 64 bpm Height: 5'3" SpO2: 98% Weight: 190 lbs 11/17/2014 Blood Pressure 1: 146/80 Code: 8480-6 BMI: 33.5 Code: 49993-8 Heart Rate 1: 60 bpm Height: 5'3" SpO2: 97% Weight: 189 lbs 10/31/2014 Blood Pressure 1: 130/72 Code: 8480-6 BMI: 33.7 Code: 35821-4 Heart Rate 1: 59 bpm Height: 5'3" SpO2: 96% Weight: 190 lbs 09/28/2014 Blood Pressure 1: 130/86 Code: 8480-6 Blood Pressure 1: 130/72 Code: 8480-6 BMI: 33.7 Code: 36090-7 Heart Rate 1: 58 bpm Height: 5'3" SpO2: 97% Weight: 190 lbs 08/31/2014 Blood Pressure 1: 122/84 Code: 8480-6 BMI: 34.0 Code: 42778-9 Height: 5'3" Weight: 192 lbs 05/29/2014 Blood Pressure 1: 120/68 Code: 8480-6 BMI: 33.8 Code: 36989-6 Heart Rate 1: 87 bpm Height: 5'3" SpO2: 97% Weight: 191 lbs 11/29/2013 Blood Pressure 1: 138/76 Code: 8480-6 BMI: 33.8 Code: 95408-0 Heart Rate 1: 68 bpm Height: 5'3" Weight: 191 lbs 10/04/2013 Blood Pressure 1: 140/88 Code: 8480-6 BMI: 33.1 Code: 52428-5 Heart Rate 1: 72 bpm Height: 5'3" Weight: 187 lbs 05/31/2013 Blood Pressure 1: 132/84 Code: 8480-6 Heart Rate 1: 60 bpm Weight: 191 lbs 11/30/2012 Blood Pressure 1: 128/72 Code: 8480-6 BMI: 33.5 Code: 63328-0 Heart Rate 1: 72 bpm Height: 5'3" Weight: 189 lbs 05/31/2012 Blood Pressure 1: 126/66 Code: 8480-6 BMI: 35.1 Code: 94375-1 Heart Rate 1: 72 bpm Height: 5'3" Weight: 198 lbs 11/25/2011 Blood Pressure 1: 156/80 Code: 8480-6 BMI: 34.2 Code: 21639-8 Heart Rate 1: 64 bpm Height: 5'3" Weight: 196 lbs 08/21/2011 Blood Pressure 1: 118/78 Code: 8480-6 Heart Rate 1: 68 bpm Respiratory Rate: 16 bpm Weight: 184 lbs 04/14/2011 Blood Pressure 1: 128/68 Code: 8480-6 BMI: 34.2 Code: 32019-0 Heart Rate 1: 56 bpm Height: 5'3" Respiratory Rate: 20 bpm Weight: 193 lbs 10/14/2010 Blood Pressure 1: 124/72 Code: 8480-6 BMI: 30.9 Code: 08304-4 Heart Rate 1: 60 bpm Height: 5'4" [...] 03/11/2017 None rash Location-Head/Neck on the left taoist 03/11/2017 None rash Location-Head/Neck on the right [...] dizziness 11/29/2013 1 episode reported last w [place] hypertension Pertinent Findings Denies dyspnea 11/29/2013 None [...] Encounters Encounter Performer Loca tion Codes Date ([id number]) [id number] EST. P ATIENT, LEVEL IV Diagnosis: Essential (primary) hypertension[ICD10: I10] Diagnosis: Mixed hyperlipidemia[ICD10: E78.2] Diagnosis: Obstructive sleep apnea (adult) (pediatric)[ICD10: G47.33] Evelyn Yeung MD, [facility] CPT-4: 48617 02/11/2018 [id number] EST. PATIENT, LEVEL III Diagnosis: Plantar wart[ICD10: B07.0] Diagnosis: Contusion of right upper arm, initial encounter[ICD10: S40.021A] Diagnosis: Corns and callosities[ICD10: L84] Diagnosis: VACCIN FOR INFLUENZA[ICD10: Z23] Fay Yeung MD, [facility] CPT-4: 64209 10/23/2017 ([id number]) [id number] EST. P ATIENT, LEVEL IV Diagnosis: Essential (primary) hypertension[ICD10: I10] Diagnosis: Corns and callosities[ICD10: L84] Diagnosis: Mixed hyperlipidemia[ICD10: E78.2] Evelyn eYung MD, [facility] CPT- 4: 79542 08/13/2017 ([id number]) [id number] EST. P ATIENT, LEVEL III Diagnosis: Essential (primary) hypertension[ICD10: I10] Diagnosis: Corns and callosities[ICD10: L84] Kat Yeung MD, [facility] CPT- 4: 84140 07/16/2017 ([id number]) [id number] EST. P ATIENT, LEVEL III Diagnosis: Pain in right toe(s)[ICD10: M79.674] Diagnosis: Corns and callosities[ICD10: L84] Kat Yeung MD, [facility] CPT- 4: 94170 06/29/2017 ([id number]) Miscellaneou s no charge Diagnosis: Cough[ICD10: R05] Diagnosis: Other allergic rhinitis[ICD10: J30.89] Diagnosis: Acute bronchitis, unspecified[ICD10: J20.9] Kat Yeung MD, [facility] CPT-4: 71796 05/01/2017 95872 EST. PATIENT, LEVEL IV Diagnosis: Cough[ICD10: R05] Diagnosis: Other acute sinusitis[ICD10: J01.80] Diagnosis: Other allergic rhinitis[ICD10: J30.89] Fay Yeung MD, [facility] CPT-4: 67341 04/24/2017 70543 EST. PATIENT, LEVEL III Diagnosis: Rash and other nonspecific skin eruption[ICD10: R21] Fay Yeung MD, [facility] CPT-4: 93152 03/11/2017 ([id number]) 08111 EST. P ATIENT, LEVEL IV Diagnosis: Essential (primary) hypertension[ICD10: I10] Diagnosis: Mixed hyperlipidemia[ICD10: E78.2] Evelyn Yeung MD, [facility] CPT- 4: 15778 02/19/2017 ([id number]) 68386 EST. P ATIENT, LEVEL IV Diagnosis: Encounter for screening mammogram for malignant neoplasm of breast[ICD10: Z12.31] Diagnosis: Essential (primary) hypertension[ICD10: I10] Diagnosis: Mixed hyperlipidemia[ICD10: E78.2] Evelyn Yeung MD, [facility] CPT- 4: 12832 10/16/2016 ([id number]) 98840 EST. P ATIENT, LEVEL IV Diagnosis: Essential (primary) hypertension[ICD10: I10] Diagnosis: Primary central sleep apnea[ICD10: G47.31] Diagnosis: Low back pain[ICD10: M54.5] Evelyn Yeung MD, [facility] CPT-4: 11048 06/19/2016 ([id number]) 24439 EST. P ATIENT, LEVEL III Diagnosis: Pain in left shoulder[ICD10: M25.512] Diagnosis: Pain in left upper arm[ICD10: M79.622] Kat Yeung MD, [facility] CPT-4: 41224 03/13/2016 ([id number]) 50947 EST. P ATIENT, LEVEL III Diagnosis: Essential (primary) hypertension[ICD10: I10] Diagnosis: Pain in left shoulder[ICD10: M25.512] Kat Yeung MD, [facility] CPT-4: 21372 02/22/2016 ([id number]) 95387 EST. P ATIENT, LEVEL III Diagnosis: Orthostatic hypotension[ICD10: I95.1] Evelyn Yeung MD, [facility] CPT-4: 67326 12/18/2015 ([id number]) 18037 EST. P ATIENT, LEVEL III Diagnosis: Essential (primary) hypertension[ICD10: I10] Diagnosis: Dysuria[ICD10: R30.0] Diagnosis: VACCIN FOR INFLUENZA[ICD10: Z23] [facility] CPT-4: 81480 11/13/2015 ([id number]) Miscellaneou s no charge Diagnosis: Essential (primary) hypertension[ICD10: I10] [facility] CPT-4: 77710 07/23/2015 ([id number]) 55112 EST. P ATIENT, LEVEL III Diagnosis: Essential (primary) hypertension[ICD10: I10] [facility] CPT-4: 98267 07/10/2015 ([id number]) 08576 EST. P ATIENT, LEVEL IV Diagnosis: Essential (primary) hypertension[ICD10: I10] Diagnosis: Primary central sleep apnea[ICD10: G47.31] Diagnosis: Anemia, unspecified[ICD10: D64.9] Evelyn Yeung MD, [facility] CPT-4: 03348 06/05/2015 ([id number]) 88568 EST. P ATIENT, LEVEL III Diagnosis: Essential (primary) hypertension[ICD10: I10] Evelyn Yeung MD, C CPT-4: 93448 05/01/2015 35800 EST. PATIENT, LEVEL III Diagnosis: Pain in right knee[ICD10: M25.561] Diagnosis: Essential (primary) hypertension[ICD10: I10] Diagnosis: Encounter for follow-up examination after completed treatment for conditions other than malignant neoplasm[ICD10: Z09] Fay Yeung MD, [facility] CPT-4: 92487 04/09/2015 ([id number]) 48860 EST. P ATIENT, LEVEL IV Diagnosis: Essential (primary) hypertension[ICD10: I10] Diagnosis: Pain in right knee[ICD10: M25.561] Evelyn Yeung MD, [facility] CPT- 4: 08288 03/26/2015 ([id number]) 32493 EST. P ATIENT, LEVEL III Diagnosis: Left upper quadrant pain[ICD10: R10.12] Diagnosis: Lower abdominal pain, unspecified[ICD10: R10.30] Diagnosis: Recurrent oral aphthae[ICD10: K12.0] Evelyn Yeung MD, [facility] CPT-4: 86013 11/17/2014 ([id number]) 04299 EST. P ATIENT, LEVEL III Diagnosis: Left groin pain[ICD9: 789.09] Evelyn Yeung MD, [facility] CPT-4: 22029 10/31/2014 ([id number]) 27058 EST. P ATIENT, LEVEL IV Diagnosis: ESSENTIAL HYPERTENSION[ICD9: 401.9] Diagnosis: HYPERLIPIDEMIA[ICD9: 272.4] Evelyn Yeung MD, [facility] CPT-4: 81462 09/28/2014 ([id number]) 10193 EST. P ATIENT, LEVEL III Diagnosis: CELLULITIS OF FACE[ICD9: 682.0] Tatiana Yeung MD, [facility] CPT-4: 76435 08/31/2014 ([id number]) 59422 EST. P ATIENT, LEVEL IV Diagnosis: ESSENTIAL HYPERTENSION[ICD9: 401.9] Diagnosis: Hyperlipidemia[ICD9: 272.4] Diagnosis: Reyes's cyst of knee[ICD9: 727.51] Evelyn Yeung MD, [facility] CPT- 4: 23739 05/29/2014 ([id number]) 82470 EST. P ATIENT, LEVEL III Diagnosis: ESSENTIAL HYPERTENSION[ICD9: 401.9] Diagnosis: HYPERLIPIDEMIA[ICD9: 272.4] Evelyn Yeung MD, [facility] CPT-4: 32654 11/29/2013 ([id number]) 60343 EST. P ATIENT, LEVEL III Diagnosis: CELLULITIS OF FACE[ICD9: 682.0] Evelyn Yeung MD, [facility] CPT-4: 16577 10/04/2013 ([id number]) 93516 EST. P ATIENT, LEVEL IV Diagnosis: ESSENTIAL HYPERTENSION[SNOMED: 31610067] Diagnosis: HYPERLIPIDEMIA[ICD9: 272.4] Evelyn Yeung MD, [facility] CPT-4: 11734 05/31/2013 ([id number]) 91362 EST. P ATIENT, LEVEL III Diagnosis: ESSENTIAL HYPERTENSION[SNOMED: 22492818] Diagnosis: ABN FINDINGS NEC[ICD9: 796.9] Evelyn Yeung MD, [facility] CPT-4: 18157 11/30/2012 ([id number]) 82245 EST. P ATIENT, LEVEL IV Diagnosis: ESSENTIAL HYPERTENSION[SNOMED: 51855336] Diagnosis: HYPERLIPIDEMIA[ICD9: 272.4] Diagnosis: Abnormal Pap smear[ICD9: 796.9] Evelyn Yeung MD, [facility] CPT-4: 76882 05/31/2012 ([id number]) 13976 EST. P ATIENT, LEVEL III Diagnosis: Abnormal Pap smear[ICD9: 796.9] Diagnosis: ESSENTIAL HYPERTENSION[SNOMED: 13922901] Evelyn Yeung MD, C CPT-4: 67506 11/25/2011 ([id number]) 79587 EST. 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 P ATIENT, LEVEL IV Diagnosis: ESSENTIAL HYPERTENSION[SNOMED: 95549780] Diagnosis: Hyperlipidemia[ICD9: 272.4] Diagnosis: Annual physical exam[ICD9: V70.0] Evelyn Yeung MD, [facility] CPT-4: 28632 04/14/2011 85268 EST. PATIENT, LEVEL III Diagnosis: ESSENTIAL HYPERTENSION[SNOMED: 55027456] Diagnosis: Dyspareunia, female[ICD9: 625.0] Evelyn Yeung MD, [facility] CPT-4: 78868 10/14/2010 Plan of Care Planned Activity Notes [...] the cpap. 02/11/2018 Appointment: Evelyn Yeung WPtel: [address] [place], [place] [address] (15 min) Moderate 02/11/2018 Patient Education: Patient [...] no improvement 10/23/2017 Appointment: Fay Marie WPtel: [address] [place], [place] [phone] (15 min) Moderate 10/23/2017 Patient [...] to assure normal liver response to medications. [place] on 4th toe right foot lateral surface - removed with scalpel. 08/13/2017 Appointment: Evelyn Yeung WPtel: [address] [place], [place] [phone] (15 min) Moderate 08/13/2017 Patient Education: Patient Medication Summary Completed 08/13/2017 Visit Plan: QVP-gzuutfxomj-vk goldberg es Callus right toe -healed-no further treatment indicated 07/16/2017 Appointment: Kat Mitchell WPtel: [phone] [phone] (15 min) Moderate 07/16/2017 Patient Education: Patient Medication Summary Completed 07/16/2017 Appointment: Kat Mitchell WPtel: [facility]9 [phone] (15 min) Moderate 07/14/2017 Visit Plan: Callus-right 4th toe-de brided today in the office-instructed patient on wound care and to call if symptoms do not resolve or if any worse-patient verbalized understanding of plan. 06/29/2017 Appointment: Kat Mitchell WPtel: [facility]4 [phone] (15 min) Moderate 06/29/2017 Patient Education: Patient Medication Summary Completed 06/29/2017 Visit Plan: Bronchitis-cough Discus sed natural and expected course of this diagnosis and need to alert me if symptoms do not follow expected course, or if any worse. RX sent to patient's pharmacy. 05/01/2017 Appointment: Kat Mitchell WPtel: [facility]9 [phone] [place] (10 min) Simple 05/01/2017 Patient [...] spray. 04/24/2017 Appointment: Fay Marie WPtel: [phone] [facility] (15 min) Moderate 04/24/2017 Patient Education: [...] discharge. 03/11/2017 [phone] ([facility] min[facility] Complex 03/11/2017 Patient Education: [...] to medications. 02/19/2017 Appointment: [phone] (15 min) Moderate 02/19/2017 Patient Education: Patient [...] medications. 10/16/2016 Appointment: Evelyn Yeung WPtel: [phone] [facility] (15 min) Moderate 10/16/2016 Patient Education: Patient [...] symptoms. 06/19/2016 Appointment: Evelyn Yeung WPtel: [facility]4 [facility] (15 min) Moderate 06/19/2016 Patient Education: Patient Medication Summary Completed 06/19/2016 Patient Education: Obesity Completed 06/19/2016 Visit Plan: Left shoulder pain-adriana ent has done rest, ice, and anti inflammatories-shoulder pain persists and causing weakness in left arm- will xray shoulder/humerus and proceed with MRI if indicated-patient verbalized understanding of plan. 03/13/2016 Appointment: Kat Mitchell WPtel: [phone] [place] (15 min) Moderate 03/13/2016 Appointment: Evelyn Yeung WPtel: [facility] [place] (15 min) Moderate 03/13/2016 Patient Education: [...] at home. 02/22/2016 Appointment: Kat Mitchell WPtel: [phone] (15 min) Moderate 02/22/2016 Patient Education: Patient Medication Summary Completed 02/22/2016 Patient Education: Obesity Completed 02/22/2016 Appointment: Kat Mitchell WPtel: [phone] [place] (30 min) Complex 02/06/2016 Visit Plan: HYPOTENSION - RECOMMEND ED PT TO DECREASE THE LISIONPRIL TO 20MG ONE TIME DAILY. 12/18/2015 Appointment: Evelyn Yeung WPtel: [facility]5 [facility] (15 min) Moderate 12/18/2015 Patient Education: Patient [...] at home. 11/13/2015 Appointment: Evelyn Yeung WPtel: [facility]5 [facility] (15 min) Moderate 11/13/2015 Patient Education: Patient [...] care surrogate. 10/10/2015 Appointment: Kat Mitchell WPtel: [phone] [phone] (30 min) Complex 10/10/2015 Patient Education: [...] home. 07/10/2015 Appointment: Evelyn Yeung WPtel: [phone] [facility] (15 min) Moderate 07/10/2015 Patient Education: Patient [...] - continue with cpap 06/05/2015 Appointment: [facility] eYung [facility]Ptel[phone] [place] (15 min) Moderate 06/05/2015 Patient Education: [...] Hypertension Completed 04/09/2015 Appointment: Evelyn Yeung WPtel: [facility] (15 min) Moderate 03/29/2015 Visit Plan: Hypertension [...] to medications. 09/28/2014 Appointment: [facility]Ptel[phone] Follow up 09/28/2014 Patient Education: Patient Medication Summary Completed 09/28/2014 Patient Education: Hypertension Completed 09/28/2014 Care Plan: COMPLETE CBC AUTOMATED LOINC : 38360-9 Ordered 09/28/2014 Visit Plan: Cellulitis - RX [...] at rest. 05/29/2014 Appointment: Ev[facility] Yeung [facility]Ptel[phone] Follow up 05/29/2014 Patient Education: Patient Medication [...] medications. 11/29/2013 Appointment: Evelyn Yeung WPtel: [facility]5 [facility] Follow up 11/29/2013 Patient Education: Patient Medication Summary Completed 11/29/2013 Patient Education: Hypertension Completed 11/29/2013 Care Plan: COMPLETE CBC AUTOMATED LOINC : 50580-5 Ordered 11/29/2013 Visit Plan: Cellulitis - continue w ith oral antibiotics as previously directed, return to clinic as previously directed, call for acute change in symptoms, worsening redness, warmth, discharge. 10/04/2013 Appointment: [facility] Yeung [facility]Ptel[phone] [facility] 10/04/2013 Patient Education: Patient Medication Summary Completed 10/04/2013 Visit Plan: Hypertension - well con yonaslled - continue with current medications, continue with [...] months 05/31/2013 Appointment: Ev[facility] Yeung [facility]Ptel: [phone] [place] Follow up 05/31/2013 Patient Education: Patient [...] 2 years. 11/30/2012 Appointment: Evelyn Yeung WPtel: [phone] [place] Pap Only 11/30/2012 Patient Education: Patient [...] of 2011. 05/31/2012 Appointment: Ev[facility] Yeung WPtel: [phone] [place] Pap Only 05/31/2012 Patient Education: Patient [...] home. 11/25/2011 Appointment: Evelyn Yeung WPtel: [facility]5 [facility] [place] Pap Only 11/25/2011 Patient Education: Patient Medication Summary Completed 11/25/2011 Patient Education: High Blood Pressure: Essential Hypertension Completed 11/25/2011 Appointment: Evelyn Yeung WPtel: [address] [place], [place] [phone] [place] Pap Only 09/01/2011 Appointment: Evelyn Yeung WPtel: [address] [place], [place] [phone] Pap Only 08/26/2011 Visit Plan: Hypertension - [...] hot flashes. 08/21/2011 Appointment: Evelyn Yeung WPtel: [address] [place], [place] [phone] [place] Pap Only 08/21/2011 Patient Education: Patient Medication Summary Completed 08/21/2011 Patient Education: High Blood Pressure: Essential Hypertension Completed 08/21/2011 Appointment: Evelyn Yeung WPtel: [address] [place], [place] [phone] [place] Other 04/16/2011 Visit Plan: Hypertension - [...] prn. 04/14/2011 Appointment: Evelyn Yeung WPtel: [phone] [facility] [place] Pap Only 04/14/2011 Patient Education: Patient Medication Summary Completed 04/14/2011 Patient Education: High Blood Pressure: Essential Hypertension Completed 04/14/2011 Appointment: Evelyn Yeung WPtel: [phone] [place] Injection 12/19/2010 Patient Education: Patient Medication [...] discomfort. 10/14/2010 Appointment: Ev[facility] Yeung [facility]Ptel: [phone] [place] Other 10/14/2010 Patient Education: Patient Medication Summary Completed 10/14/2010 Instructions Comment . Abnormal pap- repe at pap completed, [...] assure normal liver response to medications. . Callus-right 4th t oe-debrided today in the office- instructed patient on wound care and to call if symptoms do not resolve or if any worse-patient verbalized understanding of plan. xray . Left shoulder pain-patient has done [...] today Sleep Apnea - continue with cpap Allergic Reaction/Hi ves - discussed diagnosis with [...] intercourse- advised [place] jelly to decrease discomfort. . Hypertension - wel [...] Abdominal pain-LUQ and LLQ-schedule abdominal ultrasound . VAP-cjygmijkpw-si changes Callus right toe -healed-no further treatment [...] to assure normal liver response to medications. ALEVE 2 TABS TWICE D AILY WITH [...] to assure normal liver response to medications. [place] on 4th toe right foot lateral surface - removed with scalpel. . Cellulitis - jorden nue with oral antibiotics as previously directed, return to clinic as previously directed, call for acute change in symptoms, worsening redness, warmth, discharge.
--- OUTSIDE RECORDS SUMMARY | 2019-07-08 08:23 | XMS REPORT | CCD ---
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 10/14/[address]: [id number] Never smoker 10/14/[address]: 944845905 Never drinks alcohol 10/14/2010 Has the patient [...] Date Stop Date Sta tus Fill Instructions chlorthalidone 25 mg tablet RxNorm: 706457 Tablet(s) TAKE 1 TABL ET EVERY MORNING 03/26/2018 03/20/2019 Ac tive simvastatin 20 mg ta blet RxNorm: 129083 Tablet(s) TAKE 1 TABL ET EVERY NIGHT 03/26/2018 03/20/2019 Ac tive lisinopril 20 mg tablet RxNorm: 184571 1 Tablet(s) PO daily 02/11/2018 05/06/2019 Active this is an update on her RX - she is onl y taking 20mg daily -please delete other rx's lisinopril 20 mg tablet RxNorm: 387272 1 Tablet(s) PO daily 11/20/2017 02/10/2018 Inactive lisinopril 40 mg tablet RxNorm: 829794 Tablet(s) TAKE 1 TABLET EVERY DAY 11/16/2017 11/19/2017 In active metoprolol succinate ER 50 mg tablet,extended release 24 hr RxNorm: 101138 Tablet(s) TAKE 1 TABLET TWICE DAILY 06/05/2017 05/30/2018 Active metoprolol succinate ER 50 mg tablet,extended release 24 hr RxNorm: 806663 Tablet(s) TAKE 1 TABLET TWICE DAILY 06/05/2017 06/04/2017 Inactive potassium chloride E R 10 mEq capsule,extended release RxNorm: 075591 1 Capsule(s) PO TIW TAKE 1 CAPSULE THREE TIMES WEEKLY 05/07/2017 05/01/2018 Active three times weekly potassium chloride E R 10 mEq capsule,extended release RxNorm: 445603 1 Capsule(s) PO daily TAKE 1 CAPSULE THREE TIMES WEEKLY 05/05/2017 05/06/2017 Inactive metoprolol succinate ER 50 mg tablet,extended release 24 hr RxNorm: 345414 Tablet(s) TAKE 1 TABLET TWICE DAILY 05/04/2017 06/04/2017 Inactive Phenergan with Codei ne Syrup RxNorm: 5-10 Milliliter(s) PO QID a s needed cough 05/01/2017 No Stop Date Active cefdinir 300 mg capsule RxNorm: 083688 1 Capsule(s) PO BID 05/01/2017 05/07/2017 Inactive Zithromax Z-Doroteo 250 mg tablet RxNorm: 669811 1 Tablet(s) PO UD 04/24/2017 06/22/2017 Inactive Phenergan with Codei ne Syrup RxNorm: 5-10 Milliliter(s) PO QID a s needed cough 04/24/2017 04/30/2017 In active prednisone 20 mg tablet RxNorm: 086876 2 Tablet(s) PO daily 04/24/2017 04/28/2017 Inactive chlorthalidone 25 mg tablet RxNorm: 481568 Tablet(s) TAKE 1 TABL ET EVERY MORNING 04/13/2017 03/25/2018 In active simvastatin 20 mg ta blet RxNorm: 363822 Tablet(s) TAKE 1 TABL ET EVERY NIGHT 04/08/2017 03/25/2018 In active Kenalog 40 mg/mL wander pension for injection RxNorm: 8846929 1 Milliliter(s) Inj 03/11/2017 03/11/2017 In active prednisone 20 mg tablet RxNorm: 099453 2 Tablet(s) PO daily 03/11/2017 03/15/2017 Inactive simvastatin 20 mg ta blet RxNorm: 637171 TAKE 1 TABLET EVERY DAY 01/02/2017 04/07/2017 Inactive lisinopril 40 mg tablet RxNorm: 997785 TAKE 1 TABLET EVERY DAY 11/24/2016 08/20/2017 Inactive metoprolol succinate ER 50 mg tablet,extended release 24 hr RxNorm: 151998 TAKE 1 TABLET TWICE DAILY 11/24/2016 05/03/2017 Inactive fluconazole 150 mg t ablet RxNorm: 006187 1 Tablet(s) PO daily prn yeast infection symptoms 10/16/2016 10/25/2016 Inactive potassium chloride E R 10 mEq capsule,extended release RxNorm: 429278 TAKE 1 CAPSULE THREE TIMES WEEKLY 08/12/2016 05/04/2017 Inactive chlorthalidone 25 mg tablet RxNorm: 664496 TAKE 1 TABLET EVERY M ORNING 06/30/2016 04/12/2017 In active simvastatin 20 mg ta blet RxNorm: 854253 TAKE 1 TABLET EVERY DAY 01/21/2016 01/01/2017 Inactive lisinopril 40 mg tablet RxNorm: 856230 1/2 Tablet(s) daily 12/18/2015 11/23/2016 Inactive metoprolol succinate ER 50 mg tablet,extended release 24 hr RxNorm: 577992 Tablet(s) TAKE 1 TABLET TWICE DAILY 12/13/2015 11/23/2016 Inactive metoprolol succinate ER 50 mg tablet,extended release 24 hr RxNorm: 047907 Tablet(s) TAKE 1 TABLET TWICE DAILY 12/13/2015 12/12/2015 Inactive metoprolol succinate ER 50 mg tablet,extended release 24 hr RxNorm: 417917 Tablet(s) TAKE 1 TABLET TWICE DAILY 11/13/2015 12/12/2015 Inactive Keflex 500 mg capsule RxNorm: 004526 1 Capsule(s) PO TID 11/13/2015 11/19/2015 Inactive chlorthalidone 25 mg tablet RxNorm: 893957 1 Tablet(s) PO QAM 08/08/2015 06/29/2016 Inactive potassium chloride E R 10 mEq capsule,extended release RxNorm: 373821 1 Capsule(s) PO TIW 08/08/2015 08/01/2016 Inactive potassium chloride E R 10 mEq capsule,extended release RxNorm: 314923 1 Capsule(s) PO TIW 06/20/2015 08/07/2015 Inactive lisinopril 40 mg tablet RxNorm: 601585 TAKE 1 TABLET EVERY DAY 2015 12/17/2015 Inactive potassium chloride E R 10 mEq capsule,extended release RxNorm: 936583 1 Capsule(s) PO TIW 2015 06/19/2015 Inactive chlorthalidone 25 mg tablet RxNorm: 010813 1 Tablet(s) PO QAM 06/05/2015 08/07/2015 Inactive potassium chloride E R 10 mEq capsule,extended release RxNorm: 779180 1 Capsule(s) PO TIW 06/05/2015 06/17/2015 Inactive lisinopril 40 mg tablet RxNorm: 376085 1/2 Tablet(s) PO BID 05/07/2015 06/17/2015 Inactive amoxicillin 500 mg t ablet RxNorm: 579924 4 Tablet(s) PO one ho ur prior to dental appts UD 05/07/2015 10/08/2015 Inactive amoxicillin 500 mg t ablet RxNorm: 862537 4 Tablet(s) PO one ho ur prior to dental appts UD 05/04/2015 05/06/2015 Inactive lisinopril 40 mg tablet RxNorm: 455937 1/2 Tablet(s) PO BID 05/04/2015 05/06/2015 Inactive amoxicillin 500 mg t ablet RxNorm: 024489 4 Tablet(s) PO one ho ur prior to dental appts UD 05/01/2015 05/03/2015 Inactive lisinopril 40 mg tablet RxNorm: 369206 1/2 Tablet(s) PO BID TAKE 1 TABLET DAILY 05/01/2015 05/03/2015 In active metoprolol succinate ER 50 mg tablet,extended release 24 hr RxNorm: 272820 TAKE 1 AND 1/2 TABLETS TWICE DAILY 04/16/2015 11/12/2015 Inactive simvastatin 20 mg ta blet RxNorm: 621464 TAKE 1 TABLET EVERY DAY 04/16/2015 01/10/2016 Inactive acyclovir 800 mg tablet RxNorm: 541055 1 Tablet(s) PO TID 11/17/2014 11/26/2014 Inactive acyclovir 400 mg tablet RxNorm: 074426 2 Tablet(s) PO QID 10/06/2014 10/05/2014 Inactive acyclovir 400 mg tablet RxNorm: 897307 2 Tablet(s) PO QID 10/06/2014 10/15/2014 Inactive cephalexin 500 mg ca psule RxNorm: 453664 1 Capsule(s) PO TID 08/31/2014 09/04/2014 Inactive Bactroban 2 % topica l ointment RxNorm: 940322 1 Application TOP BID 08/31/2014 10/08/2015 Inactive Bactroban 2 % topica l ointment RxNorm: 872041 1 Application TOP BID 08/31/2014 09/04/2014 Inactive simvastatin 20 mg ta blet RxNorm: 279327 Tablet(s) TAKE 1 TABL ET DAILY 03/31/2014 04/15/2015 In active lisinopril 40 mg tablet RxNorm: 816666 Tablet(s) TAKE 1 TABLET DAILY 03/31/2014 04/30/2015 In active metoprolol succinate ER 50 mg tablet,extended release 24 hr RxNorm: 149194 Tablet(s) TAKE ONE AND ONE-HALF TABLETS (75 MG) TWICE A DAY 03/09/2014 04/15/2015 Inactive Prio r authorization approved for this med until 03-09-2015 metoprolol succinate ER 50 mg tablet,extended release 24 hr RxNorm: 076251 Tablet(s) TAKE ONE AND ONE-HALF TABLETS (75 MG) TWICE A DAY 03/06/2014 03/08/2014 Inactive simvastatin 20 mg ta blet RxNorm: 662775 TAKE 1 TABLET DAILY 01/24/2014 03/30/2014 Inactive lisinopril 40 mg tablet RxNorm: 298056 TAKE 1 TABLET DAILY 01/24/2014 03/30/2014 Inactive simvastatin 20 mg ta blet RxNorm: 074667 TAKE 1 TABLET DAILY 10/24/2013 01/23/2014 Inactive cephalexin 500 mg ca psule RxNorm: 783318 1 Capsule(s) PO TID 10/04/2013 10/08/2013 Inactive metoprolol succinate ER 50 mg tablet,extended release 24 hr RxNorm: 625503 TAKE ONE AND ONE-HALF TABLETS (75 MG) TWICE A DAY 09/16/2013 03/05/2014 Inactive simvastatin 20 mg ta blet RxNorm: 205264 Tablet(s) PO TAKE 1 T ABLET DAILY 04/21/2013 10/23/2013 In active metoprolol succinate ER 50 mg tablet,extended release 24 hr RxNorm: 206734 Tablet(s) PO TAKE ONE AND ONE-HALF TABLETS (75 MG) TWICE A DAY 03/24/2013 09/15/2013 Inactive metoprolol succinate ER 50 mg tablet,extended release 24 hr RxNorm: 104304 Tablet(s) PO TAKE ONE AND ONE-HALF TABLETS (75 MG) TWICE A DAY 12/20/2012 03/23/2013 Inactive lisinopril 40 mg tablet RxNorm: 166453 Tablet(s) PO TAKE 1 TABLET DAILY 11/18/2012 01/23/2014 In active simvastatin 20 mg ta blet RxNorm: 263345 Tablet(s) PO TAKE 1 T ABLET DAILY 08/06/2012 04/20/2013 In active metoprolol succinate ER 50 mg tablet,extended release 24 hr RxNorm: 196528 Tablet(s) PO TAKE ONE AND ONE-HALF TABLETS (75 MG) TWICE A DAY 06/15/2012 12/19/2012 Inactive metoprolol succinate ER 50 mg tablet,extended release 24 hr RxNorm: 517107 Tablet(s) PO TAKE ONE AND ONE-HALF TABLETS (75 MG) TWICE A DAY 03/01/2012 06/14/2012 Inactive Diflucan 150 mg tablet RxNorm: 627130 1 Tablet(s) PO daily 12/03/2011 12/02/2011 Inactive Diflucan 150 mg tablet RxNorm: 893920 1 Tablet(s) PO daily 12/03/2011 12/07/2011 Inactive Diflucan 150 mg tablet RxNorm: 063745 1 Tablet(s) PO daily 12/03/2011 12/02/2011 Inactive Influenza Virus Vacc ine 0.5 mL RxNorm: IM 11/25/2011 11/25/2011 Inactive metoprolol succinate ER 50 mg tablet,extended release 24 hr RxNorm: 827810 Tablet(s) PO 09/16/2011 02/29/2012 Inactive TAKE ONE AND ONE-HALF TABLETS (75 MG) TW ICE A DAY lisinopril 40 mg tablet RxNorm: 502103 Tablet(s) PO 08/25/2011 11/17/2012 Inactive TAKE 1 TABLET DAILY simvastatin 20 mg ta blet RxNorm: 001414 Tablet(s) PO 07/31/2011 08/05/2012 Inactive TAKE 1 TABLET DAILY Influenza Virus Vacc ine 0.5 mL RxNorm: 1/2 Milliliter(s) IM 12/19/2010 12/19/2010 Inactive metoprolol succinate ER 50 mg tablet,extended release 24 hr RxNorm: 549745 Tablet(s) PO 12/02/2010 09/15/2011 Inactive TAKE ONE AND ONE-HALF TABLETS (75 MG) TW ICE A DAY Calcium 600 + D(3) 6 00 mg (1,500 mg)-400 unit Tab RxNorm: 719391 1 Tablet(s) PO daily No Start Date Active Tylenol PM Extra Str ength 25 mg-500 mg Tab RxNorm: 7572432 1 Tablet(s) PO QHS No Start Date Active Probiotic & Acidophi lesa oral RxNorm: oral No Start D ate Active Fish Oil 1,200 mg-14 4 mg-216 mg Cap RxNorm: 1 Capsule(s) PO BID No Start Date Active 1400mg multivitamin Cap RxNorm: 1 Capsule(s) PO daily No Start Date Active Aspirin Childrens 81 mg Chewable Tab RxNorm: 495754 1 Tablet(s) PO daily No Start Date Active premarin 0.5% Vagina l cream RxNorm: [address] art Date 08/30/2014 Inactive simvastatin 20 mg Tab RxNorm: 140092 1 Tablet(s) PO daily No Start Date 07/30/2011 Inactive lisinopril 40 mg Tab RxNorm: 087300 1 Tablet(s) PO daily No Start Date 08/24/2011 Inactive Fish Oil 340 mg-1,00 0 mg Cap RxNorm: 1 Capsule(s) PO TID No Start Date 04/14/2011 Inactive [place] 20 mg Tab RxNorm: 969090 1 Tablet(s) PO daily No Start Date 04/14/2011 Inactive metoprolol succinate ER 50 mg 24 hr Tab RxNorm: 146808 1 &1/2 Tablet(s) PO d aily No Start Date 12/01/2010 Inactive Medication Administered Medication Codes Instruc tions Start Date Status Kenalog 40 mg/mL suspension for injection RxNorm: 1400609 1Milliliter 03/11/2017 N o longer Active Influenza [...] 12.0 g/dl 10/17/2016 Cbc With Differential Ord2 Neut% 64.3 % 10/17/2016 Cbc With Differential Ord2 HCT 35.5 % 10/17/2016 Cbc With Differential Ord2 Lymph% 25.6 % 10/17/2016 Cbc With Differential Ord2 MCV 89.4 fl 10/17/2016 Cbc With Differential Ord2 Eagle% 6.3 % 10/17/2016 Cbc With Differential Ord2 MCH 30.2 pg 10/17/2016 Cbc With Differential Ord2 MCHC 33.8 pg 10/17/2016 Cbc With Differential Ord2 Eos% 3.4 % 10/17/2016 Cbc With Differential Ord2 Baso% 0.4 % 10/17/2016 Cbc With Differential Ord2 PLT 213 K/ul 10/17/2016 Cbc With Differential Ord2 RDW 13.5 % 10/17/2016 Cbc With Differential Ord2 Neut ABS# 3.45 K/ul 10/17/2016 Cbc With Differential Ord2 Lymph ABS# 1.37 K/ul 10/17/2016 Cbc With Differential Ord2 Eagle ABS# 0.3 K/ul 10/17/2016 Cbc With Differential Ord2 Eos ABS# 0.2 K/ul 10/17/2016 Cbc With Differential Ord2 Baso ABS# 0.0 K/ul 10/17/2016 Comp Metabolic Fyu342 NA 141 mEq/L 10/17/2016 Comp Metabolic Eas855 K 3.9 mEq/L 10/17/2016 Comp Metabolic Esx091 CL 105 mEq/L 10/17/2016 Comp Metabolic Xcu290 CO2 26.0 mEq/L 10/17/2016 Comp Metabolic Rpg491 AN ION GAP 14 10/17/2016 Comp Metabolic Tht802 GL UCOSE 100 mg/dL 10/17/2016 Comp Metabolic Ciy853 Cr eat 1.0 mg/dL 10/17/2016 Comp Metabolic Ixk252 eG FR 61 ml/min/1.73m2 10/17 Comp Metabolic Evc946 BUN 17 mg/dL 10/17/2016 Comp Metabolic Dki542 B/ C Ratio 17.7 Ratio 10/17/2016 Comp Metabolic Cua259 CA LCIUM 9.8 mg/dL 10/17/2016 Comp Metabolic Qff319 AL K PHOS 44 U/L 10/17/2016 Comp Metabolic Pqe984 T(SGOT) 15 U/L 10/17/2016 Comp Metabolic Chh206 AL T(SGPT) 16 U/L 10/17/2016 Comp Metabolic Ths482 BI LI T 0.5 mg/dL 10/17/2016 Comp Metabolic Ixw035 AL BUMIN 4.3 g/dL 10/17/2016 Comp Metabolic Dlt653 TP RO 6.5 g/dL 10/17/2016 Comp Metabolic Tqv920 GL OB 2.3 g/dL 10/17/2016 Comp Metabolic Ntf068 A/ G Ratio 1.9 Ratio 10/17/2016 Comp Metabolic Yeu646 Os mo 283 mOsmo 10/17/2016 Lipid Ord30 CHOL 134 mg/dL 10/17/2016 Lipid Ord30 HDL 48.0 mg/dl 10/17/2016 Lipid Ord30 TRIG 123 mg/dL 10/17/2016 Lipid Ord30 LDL 61 mg/dL 10/17/2016 Lipid Ord30 C/HDL 2.8 Ratio 10/17/2016 Comp Metabolic Okz417 NA 140 mEq/L 02/28/2016 Comp Metabolic Kwv245 K 3.9 mEq/L 02/28/2016 Comp Metabolic Tkw099 CL 102 mEq/L 02/28/2016 Comp Metabolic Nlh788 CO2 31.0 mEq/L 02/28/2016 Comp Metabolic Csu507 AN ION GAP 11 02/28/2016 Comp Metabolic Ebb035 GL UCOSE 87 mg/dL 02/28/2016 Comp Metabolic Woi400 Cr eat 1.2 mg/dL 02/28/2016 Comp Metabolic Hal640 eG FR 45 ml/min/1.73m2 02/27 Comp Metabolic Qfp002 BUN 23 mg/dL 02/28/2016 Comp Metabolic Zbz892 B/ C Ratio 18.5 Ratio 02/28/2016 Comp Metabolic Sak968 CA LCIUM 9.2 mg/dL 02/28/2016 Comp Metabolic Mct053 AL K PHOS 53 U/L 02/28/2016 Comp Metabolic Dfj805 T(SGOT) 16 U/L 02/28/2016 Comp Metabolic Kkh148 AL T(SGPT) 17 U/L 02/28/2016 Comp Metabolic Rze889 BI LI T 0.5 mg/dL 02/28/2016 Comp Metabolic Ipv554 AL BUMIN 4.2 g/dL 02/28/2016 Comp Metabolic Trx506 TP RO 6.7 g/dL 02/28/2016 Comp Metabolic Dza045 GL OB 2.5 g/dL 02/28/2016 Comp Metabolic Vxe372 A/ G Ratio 1.7 Ratio 02/28/2016 Comp Metabolic Off753 Os mo 282 mOsmo 02/28/2016 Cbc With Differential Ord2 WBC 5.16 K/ul 02/28/2016 Cbc With Differential Ord2 RBC 3.74 M/ul 02/28/2016 Cbc With Differential Ord2 HGB 11.4 g/dl 02/28/2016 Cbc With Differential Ord2 HCT 33.9 % 02/28/2016 Cbc With Differential Ord2 Neut% 66.7 % 02/28/2016 Cbc With Differential Ord2 Lymph% 23.4 % 02/28/2016 Cbc With Differential Ord2 MCV 90.6 fl 02/28/2016 Cbc With Differential Ord2 Eagle% 5.6 % 02/28/2016 Cbc With Differential Ord2 MCH 30.5 pg 02/28/2016 Cbc With Differential Ord2 Eos% 3.9 % 02/28/2016 Cbc With Differential Ord2 MCHC 33.6 pg 02/28/2016 Cbc With Differential Ord2 PLT 214 K/ul 02/28/2016 Cbc With Differential Ord2 Baso% 0.4 % 02/28/2016 Cbc With Differential Ord2 Neut ABS# 3.44 K/ul 02/28/2016 Cbc With Differential Ord2 RDW 13.8 % 02/28/2016 Cbc With Differential Ord2 Lymph ABS# 1.21 K/ul 02/28/2016 Cbc With Differential Ord2 Eagle ABS# 0.3 K/ul 02/28/2016 Cbc With Differential Ord2 Eos ABS# 0.2 K/ul 02/28/2016 Cbc With Differential Ord2 Baso ABS# 0.0 K/ul 02/28/2016 Lipid Ord30 CHOL 141 mg/dL 02/28/2016 Lipid Ord30 HDL 48.0 mg/dl 02/28/2016 Lipid Ord30 TRIG 144 mg/dL 02/28/2016 Lipid Ord30 LDL 64 mg/dL 02/28/2016 Lipid Ord30 C/HDL 2.9 Ratio 02/28/2016 Tsh Ord6 hTSH II 2.22 uIU/mL 02/28/2016 Culture Urine [id number] URI NE CULTURE SEE NOTES 11/15/2015 Urine [...] Ord30 C/HDL 2.7 Ratio 03/19/2015 Comp Metabolic Paq110 NA 139 mEq/L 03/19/2015 Comp Metabolic Nig509 K 4.0 mEq/L 03/19/2015 Comp Metabolic Rdz104 CL 105 mEq/L 03/19/2015 Comp Metabolic Eay463 CO2 29.0 mEq/L 03/19/2015 Comp Metabolic Bbc425 AN ION GAP 9 03/19/2015 Comp Metabolic Qul859 GL UCOSE 90 mg/dL 03/19/2015 Comp Metabolic Cdx807 Cr eat 0.8 mg/dL 03/19/2015 Comp Metabolic Fst724 eG FR 80 ml/min/1.73m2 03/19 Comp Metabolic Vnp187 BUN 14 mg/dL 03/19/2015 Comp Metabolic Fbm607 B/ C Ratio 18.4 Ratio 03/19/2015 Comp Metabolic Sef657 CA LCIUM 9.5 mg/dL 03/19/2015 Comp Metabolic Zor239 AL K PHOS 39 U/L 03/19/2015 Comp Metabolic Ror806 T(SGOT) 17 U/L 03/19/2015 Comp Metabolic Ksj417 AL T(SGPT) 22 U/L 03/19/2015 Comp Metabolic Hrr413 BI LI T 0.5 mg/dL 03/19/2015 Comp Metabolic Ynj043 AL BUMIN 4.2 g/dL 03/19/2015 Comp Metabolic Pls890 TP RO 6.3 g/dL 03/19/2015 Comp Metabolic Dpx542 GL OB 2.1 g/dL 03/19/2015 Comp Metabolic Mxb790 A/ G Ratio 2.0 Ratio 03/19/2015 Comp Metabolic Erk719 Os mo 278 mOsmo 03/19/2015 Tsh Ord6 hTSH II 1.44 uIU/mL 03/19/2015 Cbc With Differential Ord2 WBC 4.54 K/ul 03/19/2015 Cbc With Differential Ord2 RBC 4.22 M/ul 03/19/2015 Cbc With Differential Ord2 HGB 12.6 g/dl 03/19/2015 Cbc With Differential Ord2 HCT 37.7 % 03/19/2015 Cbc With Differential Ord2 Neut% 58.4 % 03/19/2015 Cbc With Differential Ord2 Lymph% 33.5 % 03/19/2015 Cbc With Differential Ord2 MCV 89.3 fl 03/19/2015 Cbc With Differential Ord2 MCH 29.9 pg 03/19/2015 Cbc With Differential Ord2 Eagle% 5.1 % 03/19/2015 Cbc With Differential Ord2 Eos% 2.6 % 03/19/2015 Cbc With Differential Ord2 MCHC 33.4 pg 03/19/2015 Cbc With Differential Ord2 Baso% 0.4 % 03/19/2015 Cbc With Differential Ord2 PLT 219 K/ul 03/19/2015 Cbc With Differential Ord2 RDW 13.9 % 03/19/2015 Cbc With Differential Ord2 Neut ABS# 2.65 K/ul 03/19/2015 Cbc With Differential Ord2 Lymph ABS# 1.52 K/ul 03/19/2015 Cbc With Differential Ord2 Eagle ABS# 0.2 K/ul 03/19/2015 Cbc With Differential [...] Ord30 C/HDL 3.2 Ratio 09/29/2014 Comp Metabolic Gdz662 NA 139 mEq/L 09/29/2014 Comp Metabolic Bvl436 K 4.1 mEq/L 09/29/2014 Comp Metabolic Vpi210 CL 104 mEq/L 09/29/2014 Comp Metabolic Qgb498 CO2 31.0 mEq/L 09/29/2014 Comp Metabolic Kqo069 AN ION GAP 8 09/29/2014 Comp Metabolic Zgo645 GL UCOSE 96 mg/dL 09/29/2014 Comp Metabolic Mpu218 Cr eat 0.8 mg/dL 09/29/2014 Comp Metabolic Vpz716 eG FR 71 ml/min/1.73m2 09/29 Comp Metabolic Zro407 BUN 13 mg/dL 09/29/2014 Comp Metabolic Uro749 B/ C Ratio 15.5 Ratio 09/29/2014 Comp Metabolic Dvi507 CA LCIUM 9.5 mg/dL 09/29/2014 Comp Metabolic Tdv956 AL K PHOS 42 U/L 09/29/2014 Comp Metabolic Yjh024 T(SGOT) 20 U/L 09/29/2014 Comp Metabolic Jgt548 AL T(SGPT) 26 U/L 09/29/2014 Comp Metabolic Jgg305 BI LI T 0.5 mg/dL 09/29/2014 Comp Metabolic Idz508 AL BUMIN 4.4 g/dL 09/29/2014 Comp Metabolic Jnr755 TP RO 6.5 g/dL 09/29/2014 Comp Metabolic Owm146 GL OB 2.1 g/dL 09/29/2014 Comp Metabolic Fyw470 A/ G Ratio 2.1 Ratio 09/29/2014 Comp Metabolic Qna036 Os mo 278 mOsmo 09/29/2014 Tsh Ord6 [...] 1995 Ears/Nose/Throat oral cavity/pharynx/larynx Overall: no masses 05/31/2012 [...] PRSV 4 VA L 3 YRS+ CPT-4: 78812 10/23/2017 ADMIN INFLUENZA VIRU S VAC CPT-4: G0008 10/23/2017 THER/PROPH/DIAG INJ SC/IM CPT-4: 11218 03/11/2017 TRIAMCINOLONE ACET I [place] NOS CPT-4: J3301 03/11/2017 FLU VAC NO PRSV 4 VA L 3 YRS+ CPT-4: 08466 12/09/2016 ADMIN INFLUENZA VIRU S VAC CPT-4: G0008 12/09/2016 URINALYSIS NONAUTO W /O SCOPE CPT-4: 32767 11/13/2015 IMMUNIZATION ADMIN CPT- 4: 48491 11/13/2015 FLU VACC 4 [place] 3 YRS PLUS IM SNOMED CT: [id number] CPT-4: 04855 11/13/2015 PPPS, SUBSEQ VISIT CPT- 4: G0439 10/10/2015 IMMUNIZATION ADMIN CPT- 4: 88727 11/25/2011 Influenza Virus Vacc ine, Split Virus, >3 Yrs, IM CPT-4: 27809 11/25/2011 ADMIN INFLUENZA VIRU S VAC CPT-4: G0008 12/19/2010 FLULAVAL VACC, 3 YRS & >, IM CPT-4: Q2036 12/19/2010 Vital Signs Date Vital 02/11/2018 Blood Pressure 1: 130/70 Code: 8480-6 BMI: 35.1 Code: 19516-0 Heart Rate 1: 64 bpm Height: 5'3" SpO2: 95% Weight: 198 lbs 10/23/2017 Blood Pressure 1: 124/66 Code: 8480-6 BMI: 34.7 Code: 37765-7 Heart Rate 1: 67 bpm Height: 5'3" SpO2: 95% Weight: 196 lbs 08/13/2017 Blood Pressure 1: 128/82 Code: 8480-6 BMI: 34.7 Code: 06055-4 Heart Rate 1: 74 bpm Height: 5'3" SpO2: 95% Weight: 196 lbs 07/16/2017 Blood Pressure 1: 126/80 Code: 8480-6 BMI: 34.7 Code: 89716-7 Heart Rate 1: 62 bpm Height: 5'3" SpO2: 96% Weight: 196 lbs 06/29/2017 Blood Pressure 1: 122/70 Code: 8480-6 BMI: 35.1 Code: 20561-3 Heart Rate 1: 74 bpm Height: 5'3" SpO2: 94% Weight: 198 lbs 05/01/2017 Blood Pressure 1: 120/68 Code: 8480-6 BMI: 35.1 Code: 53302-7 Heart Rate 1: 76 bpm Height: 5'3" SpO2: 98% Weight: 198 lbs 04/24/2017 Blood Pressure 1: 142/80 Code: 8480-6 BMI: 35.1 Code: 74476-7 Heart Rate 1: 75 bpm Height: 5'3" SpO2: 98% Weight: 198 lbs 03/11/2017 Blood Pressure 1: 128/74 Code: 8480-6 BMI: 34.9 Code: 75049-6 Heart Rate 1: 68 bpm Height: 5'3" SpO2: 96% Weight: 197 lbs 02/19/2017 Blood Pressure 1: 108/62 Code: 8480-6 BMI: 34.9 Code: 16440-4 Heart Rate 1: 74 bpm Height: 5'3" SpO2: 97% Weight: 197 lbs 10/16/2016 Blood Pressure 1: 130/72 Code: 8480-6 BMI: 34.5 Code: 27172-3 Heart Rate 1: 65 bpm Height: 5'3" SpO2: 978% Weight: 194 lbs 8 oz 06/19/2016 Blood Pressure 1: 134/80 Code: 8480-6 BMI: 32.9 Code: 34582-3 Heart Rate 1: 69 bpm Height: 5'3" SpO2: 98% Weight: 186 lbs 03/13/2016 Blood Pressure 1: 118/74 Code: 8480-6 BMI: 32.4 Code: 28025-4 Heart Rate 1: 71 bpm Height: 5'3" SpO2: 96% Weight: 183 lbs 02/22/2016 Blood Pressure 1: 116/64 Code: 8480-6 BMI: 31.5 Code: 81976-5 Heart Rate 1: 71 bpm Height: 5'3" SpO2: 99% Weight: 178 lbs 12/18/2015 Blood Pressure 1: 94/60 Code: 8480-6 BMI: 31.1 Code: 15502-8 Heart Rate 1: 72 bpm Height: 5'3" SpO2: 99% Weight: 175 lbs 8 oz 11/13/2015 Blood Pressure 1: 10464 Code: 8480-6 BMI: 32.4 Code: 72829-3 Heart Rate 1: 66 bpm Height: 5'3" SpO2: 97% Weight: 183 lbs 10/10/2015 Blood Pressure 1: 112/67 Code: 8480-6 BMI: 32.6 Code: 23006-1 Heart Rate 1: 78 bpm Height: 5'3" SpO2: 97% Weight: 184 lbs 07/23/2015 Blood Pressure 1: 10464 Code: 8480-6 Blood Pressure 1: 108 Code: 8480-6 Heart Rate 1: 70 bpm SpO2: 97% 07/10/2015 Blood Pressure 1: 118 Code: 8480-6 BMI: 32.6 Code: 01497-2 Heart Rate 1: 61 bpm Height: 5'3" SpO2: 98% Weight: 184 lbs 06/05/2015 Blood Pressure 1: 164/70 Code: 8480-6 BMI: 32.4 Code: 67424-4 Heart Rate 1: 68 bpm Height: 5'3" SpO2: 97% Weight: 183 lbs 05/01/2015 Blood Pressure 1: 150/78 Code: 8480-6 BMI: 32.4 Code: 09396-9 Heart Rate 1: 87 bpm Height: 5'3" SpO2: 95% Weight: 183 lbs 04/09/2015 Blood Pressure 1: 158/68 Code: 8480-6 BMI: 32.9 Code: 84733-7 Heart Rate 1: 78 bpm Height: 5'3" SpO2: 97% Weight: 186 lbs 03/26/2015 Blood Pressure 1: 140/76 Code: 8480-6 BMI: 33.7 Code: 90995-1 Heart Rate 1: 64 bpm Height: 5'3" SpO2: 98% Weight: 190 lbs 11/17/2014 Blood Pressure 1: 146/80 Code: 8480-6 BMI: 33.5 Code: 28245-1 Heart Rate 1: 60 bpm Height: 5'3" SpO2: 97% Weight: 189 lbs 10/31/2014 Blood Pressure 1: 130/72 Code: 8480-6 BMI: 33.7 Code: 35007-5 Heart Rate 1: 59 bpm Height: 5'3" SpO2: 96% Weight: 190 lbs 09/28/2014 Blood Pressure 1: 130/86 Code: 8480-6 Blood Pressure 1: 130/72 Code: 8480-6 BMI: 33.7 Code: 51528-7 Heart Rate 1: 58 bpm Height: 5'3" SpO2: 97% Weight: 190 lbs 08/31/2014 Blood Pressure 1: 122/84 Code: 8480-6 BMI: 34.0 Code: 03233-4 Height: 5'3" Weight: 192 lbs 05/29/2014 Blood Pressure 1: 120/68 Code: 8480-6 BMI: 33.8 Code: 38847-4 Heart Rate 1: 87 bpm Height: 5'3" SpO2: 97% Weight: 191 lbs 11/29/2013 Blood Pressure 1: 138/76 Code: 8480-6 BMI: 33.8 Code: 00154-9 Heart Rate 1: 68 bpm Height: 5'3" Weight: 191 lbs 10/04/2013 Blood Pressure 1: 140/88 Code: 8480-6 BMI: 33.1 Code: 22861-6 Heart Rate 1: 72 bpm Height: 5'3" Weight: 187 lbs 05/31/2013 Blood Pressure 1: 132/84 Code: 8480-6 Heart Rate 1: 60 bpm Weight: 191 lbs 11/30/2012 Blood Pressure 1: 128/72 Code: 8480-6 BMI: 33.5 Code: 20417-7 Heart Rate 1: 72 bpm Height: 5'3" Weight: 189 lbs 05/31/2012 Blood Pressure 1: 126/66 Code: 8480-6 BMI: 35.1 Code: 55001-6 Heart Rate 1: 72 bpm Height: 5'3" Weight: 198 lbs 11/25/2011 Blood Pressure 1: 156/80 Code: 8480-6 BMI: 34.2 Code: 19031-1 Heart Rate 1: 64 bpm Height: 5'3" Weight: 196 lbs 08/21/2011 Blood Pressure 1: 118/78 Code: 8480-6 Heart Rate 1: 68 bpm Respiratory Rate: 16 bpm Weight: 184 lbs 04/14/2011 Blood Pressure 1: 128/68 Code: 8480-6 BMI: 34.2 Code: 37933-3 Heart Rate 1: 56 bpm Height: 5'3" Respiratory Rate: 20 bpm Weight: 193 lbs 10/14/2010 Blood Pressure 1: 124/72 Code: 8480-6 BMI: 30.9 Code: 68397-9 Heart Rate 1: 60 bpm Height: 5'4" [...] 03/11/2017 None rash Location-Head/Neck on the left sabianism 03/11/2017 None rash Location-Head/Neck on the right [...] dizziness 11/29/2013 1 episode reported last w [place] hypertension Pertinent Findings Denies dyspnea 11/29/2013 None [...] Encounters Encounter Performer Loca tion Codes Date ([id number]) 80671 EST. P ATIENT, LEVEL IV Diagnosis: Essential (primary) hypertension[ICD10: I10] Diagnosis: Mixed hyperlipidemia[ICD10: E78.2] Diagnosis: Obstructive sleep apnea (adult) (pediatric)[ICD10: G47.33] Evelyn Yeung MD, [facility] CPT-4: 78428 02/11/2018 92810 EST. PATIENT, LEVEL III Diagnosis: Plantar wart[ICD10: B07.0] Diagnosis: Contusion of right upper arm, initial encounter[ICD10: S40.021A] Diagnosis: Corns and callosities[ICD10: L84] Diagnosis: VACCIN FOR INFLUENZA[ICD10: Z23] Fay Yeung MD, [facility] CPT-4: 19784 10/23/2017 ([id number]) 51788 EST. P ATIENT, LEVEL IV Diagnosis: Essential (primary) hypertension[ICD10: I10] Diagnosis: Corns and callosities[ICD10: L84] Diagnosis: Mixed hyperlipidemia[ICD10: E78.2] Evelyn Yeung MD, [facility] CPT- 4: 66228 08/13/2017 ([id number]) 40563 EST. P ATIENT, LEVEL III Diagnosis: Essential (primary) hypertension[ICD10: I10] Diagnosis: Corns and callosities[ICD10: L84] Kat Yeung MD, [facility] CPT- 4: 94053 07/16/2017 ([id number]) 03218 EST. P ATIENT, LEVEL III Diagnosis: Pain in right toe(s)[ICD10: M79.674] Diagnosis: Corns and callosities[ICD10: L84] Kat Yeung MD, [facility] CPT- 4: 61501 06/29/2017 ([id number]) Miscellaneou s no charge Diagnosis: Cough[ICD10: R05] Diagnosis: Other allergic rhinitis[ICD10: J30.89] Diagnosis: Acute bronchitis, unspecified[ICD10: J20.9] Kat Yeung MD, [facility] CPT-4: 21692 05/01/2017 97245 EST. PATIENT, LEVEL IV Diagnosis: Cough[ICD10: R05] Diagnosis: Other acute sinusitis[ICD10: J01.80] Diagnosis: Other allergic rhinitis[ICD10: J30.89] Fay Yeung MD, [facility] CPT-4: 73455 04/24/2017 88904 EST. PATIENT, LEVEL III Diagnosis: Rash and other nonspecific skin eruption[ICD10: R21] Fay Yeung MD, [facility] CPT-4: 64122 03/11/2017 ([id number]) 41796 EST. P ATIENT, LEVEL IV Diagnosis: Essential (primary) hypertension[ICD10: I10] Diagnosis: Mixed hyperlipidemia[ICD10: E78.2] Evelyn Yeung MD, [facility] CPT- 4: 10276 02/19/2017 ([id number]) 53945 EST. P ATIENT, LEVEL IV Diagnosis: Encounter for screening mammogram for malignant neoplasm of breast[ICD10: Z12.31] Diagnosis: Essential (primary) hypertension[ICD10: I10] Diagnosis: Mixed hyperlipidemia[ICD10: E78.2] Evelyn Yeung MD, [facility] CPT- 4: 29729 10/16/2016 ([id number]) 82054 EST. P ATIENT, LEVEL IV Diagnosis: Essential (primary) hypertension[ICD10: I10] Diagnosis: Primary central sleep apnea[ICD10: G47.31] Diagnosis: Low back pain[ICD10: M54.5] [facility] CPT-4: 33383 06/19/2016 ([id number]) 68716 EST. P ATIENT, LEVEL III Diagnosis: Pain in left shoulder[ICD10: M25.512] Diagnosis: Pain in left upper arm[ICD10: M79.622] [facility] CPT-4: 05478 03/13/2016 ([id number]) 92679 EST. P ATIENT, LEVEL III Diagnosis: Essential (primary) hypertension[ICD10: I10] Diagnosis: Pain in left shoulder[ICD10: M25.512] [facility] CPT-4: 45600 02/22/2016 ([id number]) 26172 EST. P ATIENT, LEVEL III Diagnosis: Orthostatic hypotension[ICD10: I95.1] Evelyn Yeung MD, [facility] CPT-4: 89134 12/18/2015 ([id number]) 54630 EST. P ATIENT, LEVEL III Diagnosis: Essential (primary) hypertension[ICD10: I10] Diagnosis: Dysuria[ICD10: R30.0] Diagnosis: VACCIN FOR INFLUENZA[ICD10: Z23] Evelyn Yeung MD, [facility] CPT-4: 30638 11/13/2015 ([id number]) Miscellaneou s no charge Diagnosis: Essential (primary) hypertension[ICD10: I10] Kat Yeung MD, [facility] CPT-4: 86581 07/23/2015 ([id number]) 27999 EST. P ATIENT, LEVEL III Diagnosis: Essential (primary) hypertension[ICD10: I10] Evelyn Yeung MD, [facility] CPT-4: 88321 07/10/2015 ([id number]) 48121 EST. P ATIENT, LEVEL IV Diagnosis: Essential (primary) hypertension[ICD10: I10] Diagnosis: Primary central sleep apnea[ICD10: G47.31] Diagnosis: Anemia, unspecified[ICD10: D64.9] Evelyn Yeung MD, [facility] CPT-4: 00658 06/05/2015 ([id number]) 48383 EST. P ATIENT, LEVEL III Diagnosis: Essential (primary) hypertension[ICD10: I10] Evelyn Yeung MD, [facility] CPT-4: 06706 05/01/2015 16243 EST. PATIENT, LEVEL III Diagnosis: Pain in right knee[ICD10: M25.561] Diagnosis: Essential (primary) hypertension[ICD10: I10] Diagnosis: Encounter for follow-up examination after completed treatment for conditions other than malignant neoplasm[ICD10: Z09] Fay Yeung MD, [facility] CPT-4: 75382 04/09/2015 ([id number]) 98433 EST. P ATIENT, LEVEL IV Diagnosis: Essential (primary) hypertension[ICD10: I10] Diagnosis: Pain in right knee[ICD10: M25.561] Evelyn Yeung MD, [facility] CPT- 4: 66617 03/26/2015 ([id number]) 00152 EST. P ATIENT, LEVEL III Diagnosis: Left upper quadrant pain[ICD10: R10.12] Diagnosis: Lower abdominal pain, unspecified[ICD10: R10.30] Diagnosis: Recurrent oral aphthae[ICD10: K12.0] Evelyn Yeung MD, [facility] CPT-4: 82692 11/17/2014 ([id number]) 93343 EST. P ATIENT, LEVEL III Diagnosis: Left groin pain[ICD9: 789.09] Evelyn Yeung MD, [facility] CPT-4: 58001 10/31/2014 ([id number]) 90650 EST. P ATIENT, LEVEL IV Diagnosis: ESSENTIAL HYPERTENSION[ICD9: 401.9] Diagnosis: HYPERLIPIDEMIA[ICD9: 272.4] Evelyn Yeung MD, [facility] CPT-4: 82572 09/28/2014 ([id number]) 04475 EST. P ATIENT, LEVEL III Diagnosis: CELLULITIS OF FACE[ICD9: 682.0] Tatiana Yeung MD, [facility] CPT-4: 05088 08/31/2014 ([id number]) 39664 EST. P ATIENT, LEVEL IV Diagnosis: ESSENTIAL HYPERTENSION[ICD9: 401.9] Diagnosis: Hyperlipidemia[ICD9: 272.4] Diagnosis: Reyes's cyst of knee[ICD9: 727.51] Evelyn Yeung MD, [facility] CPT- 4: 55514 05/29/2014 ([id number]) 23430 EST. P ATIENT, LEVEL III Diagnosis: ESSENTIAL HYPERTENSION[ICD9: 401.9] Diagnosis: HYPERLIPIDEMIA[ICD9: 272.4] Evelyn Yeung MD, [facility] CPT-4: 44430 11/29/2013 ([id number]) 37355 EST. P ATIENT, LEVEL III Diagnosis: CELLULITIS OF FACE[ICD9: 682.0] Evelyn Yeung MD, [facility] CPT-4: 06602 10/04/2013 ([id number]) 16151 EST. P ATIENT, LEVEL IV Diagnosis: ESSENTIAL HYPERTENSION[SNOMED: 26320305] Diagnosis: HYPERLIPIDEMIA[ICD9: 272.4] Evelyn Yeung MD, [facility] CPT-4: 56152 05/31/2013 ([id number]) 32084 EST. P ATIENT, LEVEL III Diagnosis: ESSENTIAL HYPERTENSION[SNOMED: 01565703] Diagnosis: ABN FINDINGS NEC[ICD9: 796.9] Evelyn Yeung MD, [facility] CPT-4: 59487 11/30/2012 ([id number]) 24532 EST. P ATIENT, LEVEL IV Diagnosis: ESSENTIAL HYPERTENSION[SNOMED: 47029517] Diagnosis: HYPERLIPIDEMIA[ICD9: 272.4] Diagnosis: Abnormal Pap smear[ICD9: 796.9] Evelyn Yeung MD, [facility] CPT-4: 49987 05/31/2012 ([id number]) 37507 EST. P ATIENT, LEVEL III Diagnosis: Abnormal Pap smear[ICD9: 796.9] Diagnosis: ESSENTIAL HYPERTENSION[SNOMED: 88005209] Evelyn Yeung MD, [facility] CPT-4: 05642 11/25/2011 ([id number]) 61371 EST. 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 P ATIENT, LEVEL IV Diagnosis: ESSENTIAL HYPERTENSION[SNOMED: 85223062] Diagnosis: Hyperlipidemia[ICD9: 272.4] Diagnosis: Annual physical exam[ICD9: V70.0] [facility] CPT-4: 36152 04/14/2011 49934 EST. PATIENT, LEVEL III Diagnosis: ESSENTIAL HYPERTENSION[SNOMED: 39805967] Diagnosis: Dyspareunia, female[ICD9: 625.0] [facility] CPT-4: 04876 10/14/2010 Plan of Care Planned Activity Notes [...] the cpap. 02/11/2018 Appointment: Evelyn Yeung WPtel: [address] [place], [place] [phone] (15 min) Moderate 02/11/2018 Patient Education: Patient [...] no improvement 10/23/2017 Appointment: Fay Marie WPtel: [facility] (15 min) Moderate 10/23/2017 Patient Education: Patient [...] to assure normal liver response to medications. [place] on 4th toe right foot lateral surface - removed with scalpel. 08/13/2017 Appointment: Evelyn Yeung WPtel: [facility] (15 min) Moderate 08/13/2017 Patient Education: Patient Medication Summary Completed 08/13/2017 Visit Plan: EWT-pyaxthxelj-yf goldberg es Callus right toe -healed-no further treatment indicated 07/16/2017 Appointment: Kat Mitchell WPtel[phone] [place] (15 min) Moderate 07/16/2017 Patient Education: Patient Medication Summary Completed 07/16/2017 App[facility]ment: [phone] [phone] [place] (15 min) Moderate 07/14/2017 Visit Plan: Callus-right 4th toe-de brided today in the office-instructed patient on wound care and to call if symptoms do not resolve or if any worse-patient verbalized understanding of plan. 06/29/2017 Appointment: Kat Mitchell WPtel: [phone] (15 min) Moderate 06/29/2017 Patient Education: Patient Medication Summary Completed 06/29/2017 Visit Plan: Bronchitis-cough Discus sed natural and expected course of this diagnosis and need to alert me if symptoms do not follow expected course, or if any worse. RX sent to patient's pharmacy. 05/01/2017 Appointment: Kat Mitchell WPtel: [phone] (10 min) Simple 05/01/2017 Patient Education: Patient [...] allergy spray. 04/24/2017 Appointment: Fay Marie WPtel: [address] [place], [place] [phone] (15 min) Moderate 04/24/2017 Patient Education: Patient [...] worsening redness, warmth, discharge. 03/11/2017 [facility]ment[phone] [facility] (30 min) Complex 03/11/2017 Patient Education: Patient [...] medications. 02/19/2017 [facility]ment: [phone] [facility] (15 min) Moderate 02/19/2017 Patient Education: Patient Medication Summary Completed 02/19/2017 Appointment: Norma 12/09/2016 Patient Education: Patient Medication Summary Completed [...] to medications. 10/16/2016 Appointment: [facility] [phone] [facility] (15 min) Moderate 10/16/2016 Patient Education: Patient [...] monitor symptoms. 06/19/2016 Appointment: Ev[facility] WPtel[facility] (15 min) Moderate 06/19/2016 Patient Education: Patient Medication Summary Completed 06/19/2016 Patient Education: Obesity Completed 06/19/2016 Visit Plan: Left shoulder pain-adriana ent has done rest, ice, and anti inflammatories-shoulder pain persists and causing weakness in left arm- will xray shoulder/humerus and proceed with MRI if indicated-patient verbalized understanding of plan. 03/13/2016 Appointment: Kat Mitchell WPtel[phone] (15 min) Moderate 03/13/2016 Appointment: Evelyn Yeung WPtel: [address] [place] [address] (15 min) Moderate 03/13/2016 Patient Education: Patient [...] at home. 02/22/2016 Appointment: Kat Mitchell WPtel: [address] [place], [place] [phone] (15 min) Moderate 02/22/2016 Patient Education: Patient Medication Summary Completed 02/22/2016 Patient Education: Obesity Completed 02/22/2016 Appointment: Kat Mitchell WPtel: [address] [place] [phone] (30 min) Complex 02/06/2016 Visit Plan: HYPOTENSION - RECOMMEND ED PT TO DECREASE THE LISIONPRIL TO 20MG ONE TIME DAILY. 12/18/2015 Appointment: [facility]el[facility] [phone] [facility] (15 min) Moderate 12/18/2015 Patient Education: [...] home. 11/13/2015 Appointment: [facility]el[facility] [phone] [facility] (15 min) Moderate 11/13/2015 Patient Education: [...] surrogate. 10/10/2015 Appointment: [facility]el[phone] [phone] (30 min) Complex 10/10/2015 Patient Education: Patient [...] home. 07/10/2015 Appointment: Evelyn Yeung WPtel: [phone] [facility] (15 min) Moderate 07/10/2015 Patient Education: [...] with cpap 06/05/2015 Appointment: Evelyn Yeung WPtel: [phone] [facility] (15 min) Moderate 06/05/2015 Patient Education: [...] Completed 04/09/2015 Appointment: [facility]el[phone] [facility] (15 min) Moderate 03/29/2015 Visit Plan: [...] medications. 09/28/2014 Appointment: Evelyn Yeung WPtel: [phone] [facility] Follow up 09/28/2014 Patient Education: Patient Medication Summary Completed 09/28/2014 Patient Education: Hypertension Completed 09/28/2014 Care Plan: COMPLETE CBC AUTOMATED LOINC : 35795-5 Ordered 09/28/2014 Visit Plan: Cellulitis - RX [...] rest. 05/29/2014 Appointment: [facility]Ptel[facility] [phone] [facility] Follow up 05/29/2014 Patient Education: Patient [...] medications. 11/29/2013 Appointment: Evelyn Yeung WPtel: [phone] [facility] Follow up 11/29/2013 Patient Education: Patient Medication Summary Completed 11/29/2013 Patient Education: Hypertension Completed 11/29/2013 Care Plan: COMPLETE CBC AUTOMATED LOINC : 94407-8 Ordered 11/29/2013 Visit Plan: Cellulitis - continue w ith oral antibiotics as previously directed, return to clinic as previously directed, call for acute change in symptoms, worsening redness, warmth, discharge. 10/04/2013 Appointment: Evelyn Yeung WPtel: [facility] [facility] 10/04/2013 Patient Education: Patient Medication Summary [...] months 05/31/2013 Appointment: Evelyn Yeung WPtel: [phone] [facility] Follow up 05/31/2013 Patient Education: Patient Medication [...] years. 11/30/2012 Appointment: [facility]Ptel[phone] [facility] [place] Pap Only 11/30/2012 Patient Education: [...] 2011. 05/31/2012 Appointment: [facility]Ptel[facility] [phone] [facility] [place] Pap Only 05/31/2012 Patient Education: [...] at home. 11/25/2011 Appointment: [facility]Ptel[facility] [phone] [facility] [place] Pap Only 11/25/2011 Patient Education: Patient Medication Summary Completed 11/25/2011 Patient Education: High Blood Pressure: Essential Hypertension Completed 11/25/2011 Appointment: [facility]Ptel[facility] [phone] [facility] [place] Pap Only 09/01/2011 Appointment: [facility]Ptel[facility] [phone] [facility] [place] Pap Only 08/26/2011 Visit Plan: [...] hot flashes. 08/21/2011 Appointment: Evelyn Yeung WPtel[facility] Pap Only 08/21/2011 Patient Education: Patient Medication Summary Completed 08/21/2011 Patient Education: High Blood Pressure: Essential Hypertension Completed 08/21/2011 Appointment: [facility]Ptel[facility] [phone] [facility] [place] Other 04/16/2011 Visit Plan: Hypertension - [...] prn. 04/14/2011 Appointment: [facility]Ptel[facility] [phone] [facility] [place] Pap Only 04/14/2011 Patient Education: Patient Medication Summary Completed 04/14/2011 Patient Education: High Blood Pressure: Essential Hypertension Completed 04/14/2011 Appointment: [facility]Ptel[facility] [phone] [facility] [place] Injection 12/19/2010 Patient Education: Patient [...] decrease discomfort. 10/14/2010 Appointment: [facility]Ptel[facility] [phone] [facility] [place] Other 10/14/2010 Patient Education: Patient Medication [...] nasal steroid allergy spray. . Hypertension - unc ontrolled - the [...] knee at night when at rest. . SDC-uzmccvpksa-nt changes Callus right toe -healed-no further treatment [...] any worse-patient verbalized understanding of plan. . Plantar wart - rig ht foot [...] clinic if no improvement . Hypertension - wel l controlled - [...] Abdominal pain-LUQ and LLQ-schedule abdominal ultrasound . Hypertension - wel l controlled - [...] in May and agaiin in 6 months Allergic Reaction/Hi ves - discussed diagnosis with [...] to assure normal liver response to medications. [place] on 4th toe right foot lateral [...] change in symptoms, worsening redness, warmth, discharge. CHANGE LISINOPRIL TO 1/2 OF THE 40MG PILL ONE TIME DAILY.. HYPOTENSION - RECOMMENDED PT TO DECREASE THE LISIONPRIL TO 20MG ONE TIME DAILY.
--- OUTSIDE RECORDS SUMMARY | 2019-07-08 08:25 | XMS REPORT | CCD ---
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 10/14/[address]: 092460373 Never smoker 10/14/[address]: 810458888 Never drinks alcohol 10/14/2010 Has the patient [...] Date Stop Date Sta tus Fill Instructions lisinopril 20 mg tablet RxNorm: 235568 1 Tablet(s) PO daily 02/11/2018 05/06/2019 Active this is an update on her RX - she is onl y taking 20mg daily -please delete other rx's lisinopril 20 mg tablet RxNorm: 027572 1 Tablet(s) PO daily 11/20/2017 02/10/2018 Inactive lisinopril 40 mg tablet RxNorm: 693552 Tablet(s) TAKE 1 TABLET EVERY DAY 11/16/2017 11/19/2017 In active metoprolol succinate ER 50 mg tablet,extended release 24 hr RxNorm: 448376 Tablet(s) TAKE 1 TABLET TWICE DAILY 06/05/2017 05/30/2018 Active metoprolol succinate ER 50 mg tablet,extended release 24 hr RxNorm: 945019 Tablet(s) TAKE 1 TABLET TWICE DAILY 06/05/2017 06/04/2017 Inactive potassium chloride E R 10 mEq capsule,extended release RxNorm: 418854 1 Capsule(s) PO TIW TAKE 1 CAPSULE THREE TIMES WEEKLY 05/07/2017 05/01/2018 Active three times weekly potassium chloride E R 10 mEq capsule,extended release RxNorm: 602750 1 Capsule(s) PO daily TAKE 1 CAPSULE THREE TIMES WEEKLY 05/05/2017 05/06/2017 Inactive metoprolol succinate ER 50 mg tablet,extended release 24 hr RxNorm: 500507 Tablet(s) TAKE 1 TABLET TWICE DAILY 05/04/2017 06/04/2017 Inactive Phenergan with Codei ne Syrup RxNorm: 5-10 Milliliter(s) PO QID a s needed cough 05/01/2017 No Stop Date Active cefdinir 300 mg capsule RxNorm: 045040 1 Capsule(s) PO BID 05/01/2017 05/07/2017 Inactive Zithromax Z-Doroteo 250 mg tablet RxNorm: 551448 1 Tablet(s) PO UD 04/24/2017 06/22/2017 Inactive Phenergan with Codei ne Syrup RxNorm: 5-10 Milliliter(s) PO QID a s needed cough 04/24/2017 04/30/2017 In active prednisone 20 mg tablet RxNorm: 906272 2 Tablet(s) PO daily 04/24/2017 04/28/2017 Inactive chlorthalidone 25 mg tablet RxNorm: 574106 Tablet(s) TAKE 1 TABL ET EVERY MORNING 04/13/2017 04/07/2018 Ac tive simvastatin 20 mg ta blet RxNorm: 487196 Tablet(s) TAKE 1 TABL ET EVERY NIGHT 04/08/2017 04/02/2018 Ac tive Kenalog 40 mg/mL wander pension for injection RxNorm: 0203662 1 Milliliter(s) Inj 03/11/2017 03/11/2017 In active prednisone 20 mg tablet RxNorm: 750066 2 Tablet(s) PO daily 03/11/2017 03/15/2017 Inactive simvastatin 20 mg ta blet RxNorm: 350243 TAKE 1 TABLET EVERY DAY 01/02/2017 04/07/2017 Inactive lisinopril 40 mg tablet RxNorm: 076105 TAKE 1 TABLET EVERY DAY 11/24/2016 08/20/2017 Inactive metoprolol succinate ER 50 mg tablet,extended release 24 hr RxNorm: 930290 TAKE 1 TABLET TWICE DAILY 11/24/2016 05/03/2017 Inactive fluconazole 150 mg t ablet RxNorm: 294955 1 Tablet(s) PO daily prn yeast infection symptoms 10/16/2016 10/25/2016 Inactive potassium chloride E R 10 mEq capsule,extended release RxNorm: 145587 TAKE 1 CAPSULE THREE TIMES WEEKLY 08/12/2016 05/04/2017 Inactive chlorthalidone 25 mg tablet RxNorm: 856260 TAKE 1 TABLET EVERY M ORNING 06/30/2016 04/12/2017 In active simvastatin 20 mg ta blet RxNorm: 570869 TAKE 1 TABLET EVERY DAY 01/21/2016 01/01/2017 Inactive lisinopril 40 mg tablet RxNorm: 473570 1/2 Tablet(s) daily 12/18/2015 11/23/2016 Inactive metoprolol succinate ER 50 mg tablet,extended release 24 hr RxNorm: 612778 Tablet(s) TAKE 1 TABLET TWICE DAILY 12/13/2015 11/23/2016 Inactive metoprolol succinate ER 50 mg tablet,extended release 24 hr RxNorm: 249342 Tablet(s) TAKE 1 TABLET TWICE DAILY 12/13/2015 12/12/2015 Inactive metoprolol succinate ER 50 mg tablet,extended release 24 hr RxNorm: 398320 Tablet(s) TAKE 1 TABLET TWICE DAILY 11/13/2015 12/12/2015 Inactive Keflex 500 mg capsule RxNorm: 858049 1 Capsule(s) PO TID 11/13/2015 11/19/2015 Inactive chlorthalidone 25 mg tablet RxNorm: 335871 1 Tablet(s) PO QAM 08/08/2015 06/29/2016 Inactive potassium chloride E R 10 mEq capsule,extended release RxNorm: 336760 1 Capsule(s) PO TIW 08/08/2015 08/01/2016 Inactive potassium chloride E R 10 mEq capsule,extended release RxNorm: 550815 1 Capsule(s) PO TIW 06/20/2015 08/07/2015 Inactive lisinopril 40 mg tablet RxNorm: 207080 TAKE 1 TABLET EVERY DAY 2015 12/17/2015 Inactive potassium chloride E R 10 mEq capsule,extended release RxNorm: 572733 1 Capsule(s) PO TIW 2015 06/19/2015 Inactive chlorthalidone 25 mg tablet RxNorm: 657944 1 Tablet(s) PO QAM 06/05/2015 08/07/2015 Inactive potassium chloride E R 10 mEq capsule,extended release RxNorm: 775691 1 Capsule(s) PO TIW 06/05/2015 06/17/2015 Inactive lisinopril 40 mg tablet RxNorm: 186678 1/2 Tablet(s) PO BID 05/07/2015 06/17/2015 Inactive amoxicillin 500 mg t ablet RxNorm: 803071 4 Tablet(s) PO one ho ur prior to dental appts UD 05/07/2015 10/08/2015 Inactive amoxicillin 500 mg t ablet RxNorm: 952083 4 Tablet(s) PO one ho ur prior to dental appts UD 05/04/2015 05/06/2015 Inactive lisinopril 40 mg tablet RxNorm: 850354 1/2 Tablet(s) PO BID 05/04/2015 05/06/2015 Inactive amoxicillin 500 mg t ablet RxNorm: 937317 4 Tablet(s) PO one ho ur prior to dental appts 05/01/2015 05/03/2015 Inactive lisinopril 40 mg tablet RxNorm: 976439 1/2 Tablet(s) PO BID TAKE 1 TABLET DAILY 05/01/2015 05/03/2015 In active metoprolol succinate ER 50 mg tablet,extended release 24 hr RxNorm: 547860 TAKE 1 AND 1/2 TABLETS TWICE DAILY 04/16/2015 11/12/2015 Inactive simvastatin 20 mg ta blet RxNorm: 165933 TAKE 1 TABLET EVERY DAY 04/16/2015 01/10/2016 Inactive acyclovir 800 mg tablet RxNorm: 522666 1 Tablet(s) PO TID 11/17/2014 11/26/2014 Inactive acyclovir 400 mg tablet RxNorm: 083526 2 Tablet(s) PO QID 10/06/2014 10/05/2014 Inactive acyclovir 400 mg tablet RxNorm: 606616 2 Tablet(s) PO QID 10/06/2014 10/15/2014 Inactive cephalexin 500 mg ca psule RxNorm: 553474 1 Capsule(s) PO TID 08/31/2014 09/04/2014 Inactive Bactroban 2 % topica l ointment RxNorm: 339487 1 Application TOP BID 08/31/2014 10/08/2015 Inactive Bactroban 2 % topica l ointment RxNorm: 464588 1 Application TOP BID 08/31/2014 09/04/2014 Inactive simvastatin 20 mg ta blet RxNorm: 519475 Tablet(s) TAKE 1 TABL ET DAILY 03/31/2014 04/15/2015 In active lisinopril 40 mg tablet RxNorm: 298617 Tablet(s) TAKE 1 TABLET DAILY 03/31/2014 04/30/2015 In active metoprolol succinate ER 50 mg tablet,extended release 24 hr RxNorm: 968643 Tablet(s) TAKE ONE AND ONE-HALF TABLETS (75 MG) TWICE A DAY 03/09/2014 04/15/2015 Inactive Prio r authorization approved for this med until 03-09-2015 metoprolol succinate ER 50 mg tablet,extended release 24 hr RxNorm: 183581 Tablet(s) TAKE ONE AND ONE-HALF TABLETS (75 MG) TWICE A DAY 03/06/2014 03/08/2014 Inactive simvastatin 20 mg ta blet RxNorm: 983368 TAKE 1 TABLET DAILY 01/24/2014 03/30/2014 Inactive lisinopril 40 mg tablet RxNorm: 319179 TAKE 1 TABLET DAILY 01/24/2014 03/30/2014 Inactive simvastatin 20 mg ta blet RxNorm: 263246 TAKE 1 TABLET DAILY 10/24/2013 01/23/2014 Inactive cephalexin 500 mg ca psule RxNorm: 548329 1 Capsule(s) PO TID 10/04/2013 10/08/2013 Inactive metoprolol succinate ER 50 mg tablet,extended release 24 hr RxNorm: 878137 TAKE ONE AND ONE-HALF TABLETS (75 MG) TWICE A DAY 09/16/2013 03/05/2014 Inactive simvastatin 20 mg ta blet RxNorm: 881909 Tablet(s) PO TAKE 1 T ABLET DAILY 04/21/2013 10/23/2013 In active metoprolol succinate ER 50 mg tablet,extended release 24 hr RxNorm: 881772 Tablet(s) PO TAKE ONE AND ONE-HALF TABLETS (75 MG) TWICE A DAY 03/24/2013 09/15/2013 Inactive metoprolol succinate ER 50 mg tablet,extended release 24 hr RxNorm: 024226 Tablet(s) PO TAKE ONE AND ONE-HALF TABLETS (75 MG) TWICE A DAY 12/20/2012 03/23/2013 Inactive lisinopril 40 mg tablet RxNorm: 274581 Tablet(s) PO TAKE 1 TABLET DAILY 11/18/2012 01/23/2014 In active simvastatin 20 mg ta blet RxNorm: 912428 Tablet(s) PO TAKE 1 T ABLET DAILY 08/06/2012 04/20/2013 In active metoprolol succinate ER 50 mg tablet,extended release 24 hr RxNorm: 776002 Tablet(s) PO TAKE ONE AND ONE-HALF TABLETS (75 MG) TWICE A DAY 06/15/2012 12/19/2012 Inactive metoprolol succinate ER 50 mg tablet,extended release 24 hr RxNorm: 406376 Tablet(s) PO TAKE ONE AND ONE-HALF TABLETS (75 MG) TWICE A DAY 03/01/2012 06/14/2012 Inactive Diflucan 150 mg tablet RxNorm: 382771 1 Tablet(s) PO daily 12/03/2011 12/02/2011 Inactive Diflucan 150 mg tablet RxNorm: 191530 1 Tablet(s) PO daily 12/03/2011 12/07/2011 Inactive Diflucan 150 mg tablet RxNorm: 799143 1 Tablet(s) PO daily 12/03/2011 12/02/2011 Inactive Influenza Virus Vacc ine 0.5 mL RxNorm: IM 11/25/2011 11/25/2011 Inactive metoprolol succinate ER 50 mg tablet,extended release 24 hr RxNorm: 250795 Tablet(s) PO 09/16/2011 02/29/2012 Inactive TAKE ONE AND ONE-HALF TABLETS (75 MG) TW ICE A DAY lisinopril 40 mg tablet RxNorm: 931866 Tablet(s) PO 08/25/2011 11/17/2012 Inactive TAKE 1 TABLET DAILY simvastatin 20 mg ta blet RxNorm: 663777 Tablet(s) PO 07/31/2011 08/05/2012 Inactive TAKE 1 TABLET DAILY Influenza Virus Vacc ine 0.5 mL RxNorm: 1/2 Milliliter(s) IM 12/19/2010 12/19/2010 Inactive metoprolol succinate ER 50 mg tablet,extended release 24 hr RxNorm: 022147 Tablet(s) PO 12/02/2010 09/15/2011 Inactive TAKE ONE AND ONE-HALF TABLETS (75 MG) TW ICE A DAY Calcium 600 + D(3) 6 00 mg (1,500 mg)-400 unit Tab RxNorm: 803198 1 Tablet(s) PO daily No Start Date Active Tylenol PM Extra Str ength 25 mg-500 mg Tab RxNorm: 5592672 1 Tablet(s) PO QHS No Start Date Active Probiotic & Acidophi lesa oral RxNorm: oral No Start D ate Active Fish Oil 1,200 mg-14 4 mg-216 mg Cap RxNorm: 1 Capsule(s) PO BID No Start Date Active 1400mg multivitamin Cap RxNorm: 1 Capsule(s) PO daily No Start Date Active Aspirin Childrens 81 mg Chewable Tab RxNorm: 713723 1 Tablet(s) PO daily No Start Date Active premarin 0.5% Vagina l cream RxNorm: [address] art Date 08/30/2014 Inactive simvastatin 20 mg Tab RxNorm: 653400 1 Tablet(s) PO daily No Start Date 07/30/2011 Inactive lisinopril 40 mg Tab RxNorm: 559290 1 Tablet(s) PO daily No Start Date 08/24/2011 Inactive Fish Oil 340 mg-1,00 0 mg Cap RxNorm: 1 Capsule(s) PO TID No Start Date 04/14/2011 Inactive [place] 20 mg Tab RxNorm: 682827 1 Tablet(s) PO daily No Start Date 04/14/2011 Inactive metoprolol succinate ER 50 mg 24 hr Tab RxNorm: 634463 1 &1/2 Tablet(s) PO d aily No Start Date 12/01/2010 Inactive Medication Administered Medication Codes Instruc tions Start Date Status Kenalog 40 mg/mL suspension for injection RxNorm: 9504750 1Milliliter 03/11/2017 N o longer Active Influenza [...] 89.4 fl 10/17/2016 Cbc With Differential Ord2 [place]% 6.3 % 10/17/2016 Cbc With Differential Ord2 [...] 1.37 K/ul 10/17/2016 Cbc With Differential Ord2 [place] ABS# 0.3 K/ul 10/17/2016 Cbc With Differential Ord2 Eos ABS# 0.2 K/ul 10/17/2016 Cbc With Differential Ord2 Baso ABS# 0.0 K/ul 10/17/2016 Comp Metabolic Uhj806 NA 141 mEq/L 10/17/2016 Comp Metabolic Jvs257 K 3.9 mEq/L 10/17/2016 Comp Metabolic Ida753 CL 105 mEq/L 10/17/2016 Comp Metabolic Twx901 CO2 26.0 mEq/L 10/17/2016 Comp Metabolic Xkz200 AN ION GAP 14 10/17/2016 Comp Metabolic Ohb339 GL UCOSE 100 mg/dL 10/17/2016 Comp Metabolic Avw979 Cr eat 1.0 mg/dL 10/17/2016 Comp Metabolic Tbb459 eG FR 61 ml/min/1.73m2 10/17 Comp Metabolic Gax736 BUN 17 mg/dL 10/17/2016 Comp Metabolic Tnj932 B/ C Ratio 17.7 Ratio 10/17/2016 Comp Metabolic Xmz424 CA LCIUM 9.8 mg/dL 10/17/2016 Comp Metabolic Dww706 AL K PHOS 44 U/L 10/17/2016 Comp Metabolic Kqu306 T(SGOT) 15 U/L 10/17/2016 Comp Metabolic Saz717 AL T(SGPT) 16 U/L 10/17/2016 Comp Metabolic Pbl528 BI LI T 0.5 mg/dL 10/17/2016 Comp Metabolic Pwj230 AL BUMIN 4.3 g/dL 10/17/2016 Comp Metabolic Zkb934 TP RO 6.5 g/dL 10/17/2016 Comp Metabolic Yym116 GL OB 2.3 g/dL 10/17/2016 Comp Metabolic Ija056 A/ G Ratio 1.9 Ratio 10/17/2016 Comp Metabolic Wre494 Os mo 283 mOsmo 10/17/2016 Lipid Ord30 CHOL 134 mg/dL 10/17/2016 Lipid Ord30 HDL 48.0 mg/dl 10/17/2016 Lipid Ord30 TRIG 123 mg/dL 10/17/2016 Lipid Ord30 LDL 61 mg/dL 10/17/2016 Lipid Ord30 C/HDL 2.8 Ratio 10/17/2016 Comp Metabolic Ngg741 NA 140 mEq/L 02/28/2016 Comp Metabolic Sbq697 K 3.9 mEq/L 02/28/2016 Comp Metabolic Rlv570 CL 102 mEq/L 02/28/2016 Comp Metabolic Vnd703 CO2 31.0 mEq/L 02/28/2016 Comp Metabolic Sdy878 AN ION GAP 11 02/28/2016 Comp Metabolic Jsl190 GL UCOSE 87 mg/dL 02/28/2016 Comp Metabolic Orq160 Cr eat 1.2 mg/dL 02/28/2016 Comp Metabolic Cvx660 eG FR 45 ml/min/1.73m2 02/27 Comp Metabolic Sfx287 BUN 23 mg/dL 02/28/2016 Comp Metabolic Vcq616 B/ C Ratio 18.5 Ratio 02/28/2016 Comp Metabolic Wpl097 CA LCIUM 9.2 mg/dL 02/28/2016 Comp Metabolic Dkc922 AL K PHOS 53 U/L 02/28/2016 Comp Metabolic Vlr208 T(SGOT) 16 U/L 02/28/2016 Comp Metabolic Qit017 AL T(SGPT) 17 U/L 02/28/2016 Comp Metabolic Aky750 BI LI T 0.5 mg/dL 02/28/2016 Comp Metabolic Cxm746 AL BUMIN 4.2 g/dL 02/28/2016 Comp Metabolic Qcf653 TP RO 6.7 g/dL 02/28/2016 Comp Metabolic Ynx705 GL OB 2.5 g/dL 02/28/2016 Comp Metabolic Elx900 A/ G Ratio 1.7 Ratio 02/28/2016 Comp Metabolic Fpe902 Os mo 282 mOsmo 02/28/2016 Cbc With [...] 90.6 fl 02/28/2016 Cbc With Differential Ord2 [place]% 5.6 % 02/28/2016 Cbc With Differential Ord2 [...] 1.21 K/ul 02/28/2016 Cbc With Differential Ord2 [place] ABS# 0.3 K/ul 02/28/2016 Cbc With Differential Ord2 Eos ABS# 0.2 K/ul 02/28/2016 Cbc With Differential Ord2 Baso ABS# 0.0 K/ul 02/28/2016 Lipid Ord30 CHOL 141 mg/dL 02/28/2016 Lipid Ord30 HDL 48.0 mg/dl 02/28/2016 Lipid Ord30 TRIG 144 mg/dL 02/28/2016 Lipid Ord30 LDL 64 mg/dL 02/28/2016 Lipid Ord30 C/HDL 2.9 Ratio 02/28/2016 Tsh Ord6 hTSH II 2.22 uIU/mL 02/28/2016 Culture Urine [id number] URI NE CULTURE SEE NOTES 11/15/2015 Urine [...] Ord30 C/HDL 2.7 Ratio 03/19/2015 Comp Metabolic Nsg260 NA 139 mEq/L 03/19/2015 Comp Metabolic Yry857 K 4.0 mEq/L 03/19/2015 Comp Metabolic Gza387 CL 105 mEq/L 03/19/2015 Comp Metabolic Lih924 CO2 29.0 mEq/L 03/19/2015 Comp Metabolic Uhr875 AN ION GAP 9 03/19/2015 Comp Metabolic Czr514 GL UCOSE 90 mg/dL 03/19/2015 Comp Metabolic Nyf033 Cr eat 0.8 mg/dL 03/19/2015 Comp Metabolic Pqa945 eG FR 80 ml/min/1.73m2 03/19 Comp Metabolic Prq134 BUN 14 mg/dL 03/19/2015 Comp Metabolic Qbs281 B/ C Ratio 18.4 Ratio 03/19/2015 Comp Metabolic Yck146 CA LCIUM 9.5 mg/dL 03/19/2015 Comp Metabolic Gtc500 AL K PHOS 39 U/L 03/19/2015 Comp Metabolic Lbv756 T(SGOT) 17 U/L 03/19/2015 Comp Metabolic Ijj757 AL T(SGPT) 22 U/L 03/19/2015 Comp Metabolic Lba704 BI LI T 0.5 mg/dL 03/19/2015 Comp Metabolic Lpm581 AL BUMIN 4.2 g/dL 03/19/2015 Comp Metabolic Mvx975 TP RO 6.3 g/dL 03/19/2015 Comp Metabolic Sao899 GL OB 2.1 g/dL 03/19/2015 Comp Metabolic Sgl619 A/ G Ratio 2.0 Ratio 03/19/2015 Comp Metabolic Ojj006 Os mo 278 mOsmo 03/19/2015 Tsh Ord6 [...] 29.9 pg 03/19/2015 Cbc With Differential Ord2 [place]% 5.1 % 03/19/2015 Cbc With Differential Ord2 [...] 1.52 K/ul 03/19/2015 Cbc With Differential Ord2 [place] ABS# 0.2 K/ul 03/19/2015 Cbc With Differential [...] Ord30 C/HDL 3.2 Ratio 09/29/2014 Comp Metabolic Oep162 NA 139 mEq/L 09/29/2014 Comp Metabolic Ezl770 K 4.1 mEq/L 09/29/2014 Comp Metabolic Kuv547 CL 104 mEq/L 09/29/2014 Comp Metabolic Ivy783 CO2 31.0 mEq/L 09/29/2014 Comp Metabolic Ycs369 AN ION GAP 8 09/29/2014 Comp Metabolic Wnx734 GL UCOSE 96 mg/dL 09/29/2014 Comp Metabolic Tee875 Cr eat 0.8 mg/dL 09/29/2014 Comp Metabolic Xit291 eG FR 71 ml/min/1.73m2 09/29 Comp Metabolic Yaq900 BUN 13 mg/dL 09/29/2014 Comp Metabolic Coa756 B/ C Ratio 15.5 Ratio 09/29/2014 Comp Metabolic Mli686 CA LCIUM 9.5 mg/dL 09/29/2014 Comp Metabolic Jan754 AL K PHOS 42 U/L 09/29/2014 Comp Metabolic Nrp487 T(SGOT) 20 U/L 09/29/2014 Comp Metabolic Aio005 AL T(SGPT) 26 U/L 09/29/2014 Comp Metabolic Swb058 BI LI T 0.5 mg/dL 09/29/2014 Comp Metabolic Hrj570 AL BUMIN 4.4 g/dL 09/29/2014 Comp Metabolic Ylx523 TP RO 6.5 g/dL 09/29/2014 Comp Metabolic Uoa372 GL OB 2.1 g/dL 09/29/2014 Comp Metabolic Inn326 A/ G Ratio 2.1 Ratio 09/29/2014 Comp Metabolic Udu355 Os mo 278 mOsmo 09/29/2014 Tsh Ord6 [...] time 05/31/2012 None Full Exam - General 1995 Psychiatric mood and affect Overall: normal mood and affect 05/31/2012 None Full Exam - General 1995 Psychiatric mood and affect Mood: happy 05/31/2012 None Full Exam - General 1995 Neck thyroid Overall: normal consistency 11/25/2011 None Full Exam - General 1995 Neck thyroid Overall: nontender 11/24 None Full Exam - General 1995 Neck thyroid Overall: no mass lesions 11/25/2011 None Full Exam - General 1995 Respiratory auscultation Overall: breath sounds clear bilaterally 11/25/2011 None Full Exam - General 1995 Respiratory respiratory effort/rhythm Overall: no retractions 11/25/2011 None Full Exam - General 1995 Respiratory respiratory effort/rhythm Overall: normal rate 11/25/2011 None Full Exam - General 1995 Cardiovascular extremities Overall: no clubbing 11/25/2011 None [...] tenderness 08/21/2011 None Full Exam - General 1995 Constitutional general appearance Overall: well developed 08/21/2011 [...] rate 04/14/2011 None Full Exam - General 1995 Respiratory respiratory effort/rhythm Overall: no retractions 04/14/2011 [...] PRSV 4 VA L 3 YRS+ CPT-4: 29783 10/23/2017 ADMIN INFLUENZA VIRU S VAC CPT-4: G0008 10/23/2017 THER/PROPH/DIAG INJ SC/IM CPT-4: 05724 03/11/2017 TRIAMCINOLONE ACET I [place] NOS CPT-4: J3301 03/11/2017 FLU VAC NO PRSV 4 VA L 3 YRS+ CPT-4: 42923 12/09/2016 ADMIN INFLUENZA VIRU S VAC CPT-4: G0008 12/09/2016 URINALYSIS NONAUTO W /O SCOPE CPT-4: 48570 11/13/2015 IMMUNIZATION ADMIN CPT- 4: 04040 11/13/2015 FLU VACC 4 [place] 3 YRS PLUS IM SNOMED CT: 89689921 CPT-4: 90070 11/13/2015 PPPS, SUBSEQ VISIT CPT- 4: G0439 10/10/2015 IMMUNIZATION ADMIN CPT- 4: 28806 11/25/2011 Influenza Virus Vacc ine, Split Virus, >3 Yrs, IM CPT-4: 59105 11/25/2011 ADMIN INFLUENZA VIRU S VAC CPT-4: G0008 12/19/2010 FLULAVAL VACC, 3 YRS & >, IM CPT-4: Q2036 12/19/2010 Vital Signs Date Vital 02/11/2018 Blood Pressure 1: 130/70 Code: 8480-6 BMI: 35.1 Code: 11299-4 Heart Rate 1: 64 bpm Height: 5'3" SpO2: 95% Weight: 198 lbs 10/23/2017 Blood Pressure 1: 124/66 Code: 8480-6 BMI: 34.7 Code: 90227-2 Heart Rate 1: 67 bpm Height: 5'3" SpO2: 95% Weight: 196 lbs 08/13/2017 Blood Pressure 1: 128/82 Code: 8480-6 BMI: 34.7 Code: 29829-2 Heart Rate 1: 74 bpm Height: 5'3" SpO2: 95% Weight: 196 lbs 07/16/2017 Blood Pressure 1: 126/80 Code: 8480-6 BMI: 34.7 Code: 27595-8 Heart Rate 1: 62 bpm Height: 5'3" SpO2: 96% Weight: 196 lbs 06/29/2017 Blood Pressure 1: 122/70 Code: 8480-6 BMI: 35.1 Code: 78416-1 Heart Rate 1: 74 bpm Height: 5'3" SpO2: 94% Weight: 198 lbs 05/01/2017 Blood Pressure 1: 120/68 Code: 8480-6 BMI: 35.1 Code: 01449-9 Heart Rate 1: 76 bpm Height: 5'3" SpO2: 98% Weight: 198 lbs 04/24/2017 Blood Pressure 1: 142/80 Code: 8480-6 BMI: 35.1 Code: 85725-9 Heart Rate 1: 75 bpm Height: 5'3" SpO2: 98% Weight: 198 lbs 03/11/2017 Blood Pressure 1: 128/74 Code: 8480-6 BMI: 34.9 Code: 52709-2 Heart Rate 1: 68 bpm Height: 5'3" SpO2: 96% Weight: 197 lbs 02/19/2017 Blood Pressure 1: 108/62 Code: 8480-6 BMI: 34.9 Code: 47925-9 Heart Rate 1: 74 bpm Height: 5'3" SpO2: 97% Weight: 197 lbs 10/16/2016 Blood Pressure 1: 130/72 Code: 8480-6 BMI: 34.5 Code: 55188-1 Heart Rate 1: 65 bpm Height: 5'3" SpO2: 978% Weight: 194 lbs 8 oz 06/19/2016 Blood Pressure 1: 134/80 Code: 8480-6 BMI: 32.9 Code: 84525-8 Heart Rate 1: 69 bpm Height: 5'3" SpO2: 98% Weight: 186 lbs 03/13/2016 Blood Pressure 1: 118/74 Code: 8480-6 BMI: 32.4 Code: 69435-9 Heart Rate 1: 71 bpm Height: 5'3" SpO2: 96% Weight: 183 lbs 02/22/2016 Blood Pressure 1: 116/64 Code: 8480-6 BMI: 31.5 Code: 92229-4 Heart Rate 1: 71 bpm Height: 5'3" SpO2: 99% Weight: 178 lbs 12/18/2015 Blood Pressure 1: 94/60 Code: 8480-6 BMI: 31.1 Code: 86080-7 Heart Rate 1: 72 bpm Height: 5'3" SpO2: 99% Weight: 175 lbs 8 oz 11/13/2015 Blood Pressure 1: 104/64 Code: 8480-6 BMI: 32.4 Code: 06533-8 Heart Rate 1: 66 bpm Height: 5'3" SpO2: 97% Weight: 183 lbs 10/10/2015 Blood Pressure 1: 112/67 Code: 8480-6 BMI: 32.6 Code: 21568-0 Heart Rate 1: 78 bpm Height: 5'3" SpO2: 97% Weight: 184 lbs 07/23/2015 Blood Pressure 1: 104/64 Code: 8480-6 Blood Pressure 1: 108/64 Code: 8480-6 Heart Rate 1: 70 bpm SpO2: 97% 07/10/2015 Blood Pressure 1: 118/64 Code: 8480-6 BMI: 32.6 Code: 25647-9 Heart Rate 1: 61 bpm Height: 5'3" SpO2: 98% Weight: 184 lbs 06/05/2015 Blood Pressure 1: 164/70 Code: 8480-6 BMI: 32.4 Code: 22932-9 Heart Rate 1: 68 bpm Height: 5'3" SpO2: 97% Weight: 183 lbs 05/01/2015 Blood Pressure 1: 150/78 Code: 8480-6 BMI: 32.4 Code: 76087-6 Heart Rate 1: 87 bpm Height: 5'3" SpO2: 95% Weight: 183 lbs 04/09/2015 Blood Pressure 1: 158/68 Code: 8480-6 BMI: 32.9 Code: 02445-3 Heart Rate 1: 78 bpm Height: 5'3" SpO2: 97% Weight: 186 lbs 03/26/2015 Blood Pressure 1: 140/76 Code: 8480-6 BMI: 33.7 Code: 53707-0 Heart Rate 1: 64 bpm Height: 5'3" SpO2: 98% Weight: 190 lbs 11/17/2014 Blood Pressure 1: 146/80 Code: 8480-6 BMI: 33.5 Code: 88849-3 Heart Rate 1: 60 bpm Height: 5'3" SpO2: 97% Weight: 189 lbs 10/31/2014 Blood Pressure 1: 130/72 Code: 8480-6 BMI: 33.7 Code: 91091-0 Heart Rate 1: 59 bpm Height: 5'3" SpO2: 96% Weight: 190 lbs 09/28/2014 Blood Pressure 1: 130/86 Code: 8480-6 Blood Pressure 1: 130/72 Code: 8480-6 BMI: 33.7 Code: 69410-9 Heart Rate 1: 58 bpm Height: 5'3" SpO2: 97% Weight: 190 lbs 08/31/2014 Blood Pressure 1: 122/84 Code: 8480-6 BMI: 34.0 Code: 38822-8 Height: 5'3" Weight: 192 lbs 05/29/2014 Blood Pressure 1: 120/68 Code: 8480-6 BMI: 33.8 Code: 35423-0 Heart Rate 1: 87 bpm Height: 5'3" SpO2: 97% Weight: 191 lbs 11/29/2013 Blood Pressure 1: 138/76 Code: 8480-6 BMI: 33.8 Code: 55723-6 Heart Rate 1: 68 bpm Height: 5'3" Weight: 191 lbs 10/04/2013 Blood Pressure 1: 140/88 Code: 8480-6 BMI: 33.1 Code: 72638-5 Heart Rate 1: 72 bpm Height: 5'3" Weight: 187 lbs 05/31/2013 Blood Pressure 1: 132/84 Code: 8480-6 Heart Rate 1: 60 bpm Weight: 191 lbs 11/30/2012 Blood Pressure 1: 128/72 Code: 8480-6 BMI: 33.5 Code: 61844-0 Heart Rate 1: 72 bpm Height: 5'3" Weight: 189 lbs 05/31/2012 Blood Pressure 1: 126/66 Code: 8480-6 BMI: 35.1 Code: 52326-8 Heart Rate 1: 72 bpm Height: 5'3" Weight: 198 lbs 11/25/2011 Blood Pressure 1: 156/80 Code: 8480-6 BMI: 34.2 Code: 34330-0 Heart Rate 1: 64 bpm Height: 5'3" Weight: 196 lbs 08/21/2011 Blood Pressure 1: 118/78 Code: 8480-6 Heart Rate 1: 68 bpm Respiratory Rate: 16 bpm Weight: 184 lbs 04/14/2011 Blood Pressure 1: 128/68 Code: 8480-6 BMI: 34.2 Code: 15188-6 Heart Rate 1: 56 bpm Height: 5'3" Respiratory Rate: 20 bpm Weight: 193 lbs 10/14/2010 Blood Pressure 1: 124/72 Code: 8480-6 BMI: 30.9 Code: 35173-1 Heart Rate 1: 60 bpm Height: 5'4" [...] 03/11/2017 None rash Location-Head/Neck on the left yarsanism 03/11/2017 None rash Location-Head/Neck on the right [...] dizziness 11/29/2013 1 episode reported last w [place] hypertension Pertinent Findings Denies dyspnea 11/29/2013 None [...] Encounters Encounter Performer Loca tion Codes Date ([id number]) [id number] EST. P ATIENT, LEVEL IV Diagnosis: Essential (primary) hypertension[ICD10: I10] Diagnosis: Mixed hyperlipidemia[ICD10: E78.2] Diagnosis: Obstructive sleep apnea (adult) (pediatric)[ICD10: G47.33] Evelyn Yeung MD, [facility] CPT-4: 33961 02/11/2018 [id number] EST. PATIENT, LEVEL III Diagnosis: Plantar wart[ICD10: B07.0] Diagnosis: Contusion of right upper arm, initial encounter[ICD10: S40.021A] Diagnosis: Corns and callosities[ICD10: L84] Diagnosis: VACCIN FOR INFLUENZA[ICD10: Z23] Fay Yeung MD, [facility] CPT-4: 06439 10/23/2017 ([id number]) [id number] EST. P ATIENT, LEVEL IV Diagnosis: Essential (primary) hypertension[ICD10: I10] Diagnosis: Corns and callosities[ICD10: L84] Diagnosis: Mixed hyperlipidemia[ICD10: E78.2] Evelyn Yeung MD, [facility] CPT- 4: 90990 08/13/2017 ([id number] EST. P ATIENT, LEVEL III Diagnosis: Essential (primary) hypertension[ICD10: I10] Diagnosis: Corns and callosities[ICD10: L84] Kat Yeung MD, [facility] CPT- 4: 56140 07/16/2017 ([id number]) 53435 EST. P ATIENT, LEVEL III Diagnosis: Pain in right toe(s)[ICD10: M79.674] Diagnosis: Corns and callosities[ICD10: L84] Kat Yeung MD, [facility] CPT- 4: 74776 06/29/2017 ([id number]) Miscellaneou s no charge Diagnosis: Cough[ICD10: R05] Diagnosis: Other allergic rhinitis[ICD10: J30.89] Diagnosis: Acute bronchitis, unspecified[ICD10: J20.9] Kat Yeung MD, [facility] CPT-4: 15650 05/01/2017 95083 EST. PATIENT, LEVEL IV Diagnosis: Cough[ICD10: R05] Diagnosis: Other acute sinusitis[ICD10: J01.80] Diagnosis: Other allergic rhinitis[ICD10: J30.89] Fay Yeung MD, [facility] CPT-4: 61594 04/24/2017 52646 EST. PATIENT, LEVEL III Diagnosis: Rash and other nonspecific skin eruption[ICD10: R21] Fay Yeung MD, [facility] CPT-4: 74075 03/11/2017 ([id number]) 15945 EST. P ATIENT, LEVEL IV Diagnosis: Essential (primary) hypertension[ICD10: I10] Diagnosis: Mixed hyperlipidemia[ICD10: E78.2] Evelyn Yeung MD, [facility] CPT- 4: 93075 02/19/2017 ([id number]) 79332 EST. P ATIENT, LEVEL IV Diagnosis: Encounter for screening mammogram for malignant neoplasm of breast[ICD10: Z12.31] Diagnosis: Essential (primary) hypertension[ICD10: I10] Diagnosis: Mixed hyperlipidemia[ICD10: E78.2] Evelyn Yeung MD, [facility] CPT- 4: 52695 10/16/2016 ([id number]) 77398 EST. P ATIENT, LEVEL IV Diagnosis: Essential (primary) hypertension[ICD10: I10] Diagnosis: Primary central sleep apnea[ICD10: G47.31] Diagnosis: Low back pain[ICD10: M54.5] [facility] CPT-4: 27072 06/19/2016 ([id number]) 10951 EST. P ATIENT, LEVEL III Diagnosis: Pain in left shoulder[ICD10: M25.512] Diagnosis: Pain in left upper arm[ICD10: M79.622] [facility] CPT-4: 58269 03/13/2016 ([id number]) 13795 EST. P ATIENT, LEVEL III Diagnosis: Essential (primary) hypertension[ICD10: I10] Diagnosis: Pain in left shoulder[ICD10: M25.512] [facility] CPT-4: 85259 02/22/2016 ([id number]) 68060 EST. P ATIENT, LEVEL III Diagnosis: Orthostatic hypotension[ICD10: I95.1] [facility] CPT-4: 66208 12/18/2015 ([id number]) 32968 EST. P ATIENT, LEVEL III Diagnosis: Essential (primary) hypertension[ICD10: I10] Diagnosis: Dysuria[ICD10: R30.0] Diagnosis: VACCIN FOR INFLUENZA[ICD10: Z23] [facility] CPT-4: 35000 11/13/2015 ([id number]) Miscellaneou s no charge Diagnosis: Essential (primary) hypertension[ICD10: I10] Kat Yeung MD, [facility] CPT-4: 77144 07/23/2015 ([id number]) 33047 EST. P ATIENT, LEVEL III Diagnosis: Essential (primary) hypertension[ICD10: I10] Evelyn Yeung MD[facility] CPT-4: 34914 07/10/2015 ([id number]) 67376 EST. P ATIENT, LEVEL IV Diagnosis: Essential (primary) hypertension[ICD10: I10] Diagnosis: Primary central sleep apnea[ICD10: G47.31] Diagnosis: Anemia, unspecified[ICD10: D64.9] [facility] CPT-4: 16910 06/05/2015 ([id number]) 84540 EST. P ATIENT, LEVEL III Diagnosis: Essential (primary) hypertension[ICD10: I10] Evelyn Yeung MD[facility] CPT-4: 74425 05/01/2015 91890 EST. PATIENT, LEVEL III Diagnosis: Pain in right knee[ICD10: M25.561] Diagnosis: Essential (primary) hypertension[ICD10: I10] Diagnosis: Encounter for follow-up examination after completed treatment for conditions other than malignant neoplasm[ICD10: Z09] Fay Yeung MD, [facility] CPT-4: 27142 04/09/2015 ([id number]) 52147 EST. P ATIENT, LEVEL IV Diagnosis: Essential (primary) hypertension[ICD10: I10] Diagnosis: Pain in right knee[ICD10: M25.561] Evelyn Yeung MD, [facility] CPT- 4: 48526 03/26/2015 ([id number]) 92642 EST. P ATIENT, LEVEL III Diagnosis: Left upper quadrant pain[ICD10: R10.12] Diagnosis: Lower abdominal pain, unspecified[ICD10: R10.30] Diagnosis: Recurrent oral aphthae[ICD10: K12.0] Evelyn Yeung MD, [facility] CPT-4: 51496 11/17/2014 ([id number]) 80607 EST. P ATIENT, LEVEL III Diagnosis: Left groin pain[ICD9: 789.09] Evelyn Yeung MD, [facility] CPT-4: 61394 10/31/2014 ([id number]) 57761 EST. P ATIENT, LEVEL IV Diagnosis: ESSENTIAL HYPERTENSION[ICD9: 401.9] Diagnosis: HYPERLIPIDEMIA[ICD9: 272.4] Evelyn Yeung MD, [facility] CPT-4: 76970 09/28/2014 ([id number]) 81777 EST. P ATIENT, LEVEL III Diagnosis: CELLULITIS OF FACE[ICD9: 682.0] Tatiana Yeung MD, [facility] CPT-4: 17377 08/31/2014 ([id number]) 26590 EST. P ATIENT, LEVEL IV Diagnosis: ESSENTIAL HYPERTENSION[ICD9: 401.9] Diagnosis: Hyperlipidemia[ICD9: 272.4] Diagnosis: Reyes's cyst of knee[ICD9: 727.51] Evelyn Yeung MD, [facility] CPT- 4: 56982 05/29/2014 ([id number]) 16816 EST. P ATIENT, LEVEL III Diagnosis: ESSENTIAL HYPERTENSION[ICD9: 401.9] Diagnosis: HYPERLIPIDEMIA[ICD9: 272.4] Evelyn Yeung MD, [facility] CPT-4: 55590 11/29/2013 ([id number]) 04936 EST. P ATIENT, LEVEL III Diagnosis: CELLULITIS OF FACE[ICD9: 682.0] Evelyn Yeung MD, [facility] CPT-4: 32917 10/04/2013 ([id number]) 24915 EST. P ATIENT, LEVEL IV Diagnosis: ESSENTIAL HYPERTENSION[SNOMED: 10733197] Diagnosis: HYPERLIPIDEMIA[ICD9: 272.4] Evelyn Yeung MD, [facility] CPT-4: 62295 05/31/2013 ([id number]) 61402 EST. P ATIENT, LEVEL III Diagnosis: ESSENTIAL HYPERTENSION[SNOMED: 61903389] Diagnosis: ABN FINDINGS NEC[ICD9: 796.9] Evelyn Yeung MD [facility] CPT-4: 12889 11/30/2012 ([id number]) 57041 EST. P ATIENT, LEVEL IV Diagnosis: ESSENTIAL HYPERTENSION[SNOMED: 15154463] Diagnosis: HYPERLIPIDEMIA[ICD9: 272.4] Diagnosis: Abnormal Pap smear[ICD9: 796.9] Evelyn Yeung MD [facility] CPT-4: 79540 05/31/2012 ([id number]) 53010 EST. P ATIENT, LEVEL III Diagnosis: Abnormal Pap smear[ICD9: 796.9] Diagnosis: ESSENTIAL HYPERTENSION[SNOMED: 67466170] Evelyn Yeung MD, C CPT-4: 80736 11/25/2011 ([id number]) 22659 EST. 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 P ATIENT, LEVEL IV Diagnosis: ESSENTIAL HYPERTENSION[SNOMED: 00226044] Diagnosis: Hyperlipidemia[ICD9: 272.4] Diagnosis: Annual physical exam[ICD9: V70.0] Evelyn Yeung MD, [facility] CPT-4: 88866 04/14/2011 06125 EST. PATIENT, LEVEL III Diagnosis: ESSENTIAL HYPERTENSION[SNOMED: 35928696] Diagnosis: Dyspareunia, female[ICD9: 625.0] Evelyn Yeung MD, [facility] CPT-4: 49772 10/14/2010 Plan of Care Planned Activity Notes [...] pt doing well with the cpap. 02/11/2018 Patient Education: Patient Medication Summary Completed [...] no improvement 10/23/2017 Appointment: Fay Marie WPtel: [address] [place], [place] [phone] (15 min) Moderate 10/23/2017 Patient Education: Patient [...] to assure normal liver response to medications. [place] on 4th toe right foot lateral surface - removed with scalpel. 08/13/2017 Appointment: Evelyn Yeung WPtel: [phone] [facility] (15 min) Moderate 08/13/2017 Patient Education: Patient Medication Summary Completed 08/13/2017 Visit Plan: TJY-fleqsfbebe-js goldberg es Callus right toe -healed-no further treatment indicated 07/16/2017 Appointment: Kat Mitchell WPtel: [phone] (15 min) Moderate 07/16/2017 Patient Education: Patient Medication Summary Completed 07/16/2017 Appointment: Kat Mitchell WPtel: [address] [place], [place] [phone] (15 min) Moderate 07/14/2017 Visit Plan: Callus-right 4th toe-de brided today in the office-instructed patient on wound care and to call if symptoms do not resolve or if any worse-patient verbalized understanding of plan. 06/29/2017 Appointment: Kat Mitchell WPtel: [phone] (15 min) Moderate 06/29/2017 Patient Education: Patient Medication Summary Completed 06/29/2017 Visit Plan: Bronchitis-cough Discus sed natural and expected course of this diagnosis and need to alert me if symptoms do not follow expected course, or if any worse. RX sent to patient's pharmacy. 05/01/2017 Appointment: Kat Mitchell WPtel: [phone] [phone] (10 min) Simple 05/01/2017 Patient Education: [...] spray. 04/24/2017 Appointment: Fay Marie WPtel: [phone] [facility] (15 min) Moderate 04/24/2017 Patient Education: [...] discharge. 03/11/2017 Appointment: Fay Marie WPtel: [phone] [facility] (30 min) Complex 03/11/2017 Patient Education: [...] to medications. 02/19/2017 Appointment: Evelyn Yeung WPtel: [phone] [facility] (15 min) Moderate 02/19/2017 Patient Education: [...] to medications. 10/16/2016 Appointment: Evelyn Yeung WPtel: [phone] [facility] (15 min) Moderate 10/16/2016 Patient Education: [...] monitor symptoms. 06/19/2016 Appointment: [facility] [place] (15 min) Moderate 06/19/2016 Patient Education: Patient Medication Summary Completed 06/19/2016 Patient Education: Obesity Completed 06/19/2016 Visit Plan: Left shoulder pain-adriana ent has done rest, ice, and anti inflammatories-shoulder pain persists and causing weakness in left arm- will xray shoulder/humerus and proceed with MRI if indicated-patient verbalized understanding of plan. 03/13/2016 Appointment: [phone] [place] (15 min) Moderate 03/13/2016 Appointment: Evelyn Yeung WPtel[facility] [place] (15 min) Moderate 03/13/2016 Patient [...] at home. 02/22/2016 Appointment: [facility] Mitchell [facility]Ptel[phone] [place] (15 min) Moderate 02/22/2016 Patient Education: Patient Medication Summary Completed 02/22/2016 Patient Education: Obesity Completed 02/22/2016 Appointment: [facility] Mitchell [facility]Ptel[phone] [place] (30 min) Complex 02/06/2016 Visit Plan: HYPOTENSION - RECOMMEND ED PT TO DECREASE THE LISIONPRIL TO 20MG ONE TIME DAILY. 12/18/2015 Appointment: Evelyn Yeung WPtel[facility] [place] (15 min) Moderate 12/18/2015 Patient Education: [...] at home. 11/13/2015 Appointment: [phone] (15 min) Moderate 11/13/2015 Patient Education: [...] care surrogate. 10/10/2015 [facility]ment[phone] (30 min) [...] at home. 07/10/2015 Appointment: [phone] (15 min) Moderate 07/10/2015 Patient Education: [...] Apnea - continue with cpap 06/05/2015 Appointment: [phone] [facility] (15 min) Moderate 06/05/2015 Patient Education: Patient [...] Completed 04/09/2015 Appointment: [phone] [facility] (15 min) Moderate 03/29/2015 Visit Plan: [...] to medications. 09/28/2014 Appointment: Evelyn Yeung WPtel[facility] Follow up 09/28/2014 Patient Education: Patient Medication Summary Completed 09/28/2014 Patient Education: Hypertension Completed 09/28/2014 Care Plan: COMPLETE CBC AUTOMATED LOINC : 17620-0 Ordered 09/28/2014 Visit Plan: Cellulitis - RX [...] rest. 05/29/2014 App[facility]ment: [phone] [facility] Follow up 05/29/2014 Patient Education: Patient [...] App[facility]ment: [phone] [facility] Follow up 11/29/2013 Patient Education: Patient Medication Summary Completed 11/29/2013 Patient Education: Hypertension Completed 11/29/2013 Care Plan: COMPLETE CBC AUTOMATED LOINC : 15436-2 Ordered 11/29/2013 Visit Plan: Cellulitis - continue w ith oral antibiotics as previously directed, return to clinic as previously directed, call for acute change in symptoms, worsening redness, warmth, discharge. 10/04/2013 Appointment: Evelyn Yeung WPtel: [facility] [facility] 10/04/2013 Patient Education: Patient Medication Summary [...] 6 months 05/31/2013 Appointment: Evelyn Yeung WPtel: [facility] Follow up 05/31/2013 Patient Education: Patient [...] years. 11/30/2012 Appointment: [facility]el[facility] [phone] [facility] Pap Only 11/30/2012 Patient Education: Patient Medication [...] 2011. 05/31/2012 Appointment: Evelyn Yeung WPtel: [phone] [facility] [place] Pap Only 05/31/2012 Patient Education: [...] home. 11/25/2011 Appointment: [phone] [facility] [place] Pap Only 11/25/2011 Patient Education: Patient Medication Summary Completed 11/25/2011 Patient Education: High Blood Pressure: Essential Hypertension Completed 11/25/2011 Appointment: [phone] [facility] [place] Pap Only 09/01/2011 Appointment: [phone] [place] Pap Only 08/26/2011 Visit Plan: [...] hot flashes. 08/21/2011 Appointment: [phone] [facility] [place] Pap Only 08/21/2011 Patient Education: Patient Medication Summary Completed 08/21/2011 Patient Education: High Blood Pressure: Essential Hypertension Completed 08/21/2011 Appointment: [phone] [facility] [place] Other 04/16/2011 Visit Plan: Hypertension [...] or prn. 04/14/2011 Appointment: [phone] [facility] [place] Pap Only 04/14/2011 Patient Education: Patient Medication Summary Completed 04/14/2011 Patient Education: High Blood Pressure: Essential Hypertension Completed 04/14/2011 Appointment: [phone] [facility] [place] Injection 12/19/2010 Patient Education: Patient Medication Summary Completed 12/19/2010 Visit Plan: Hypertension - well asiya sharma - continue with current medications, continue with no added salt diet. Pt has been encouraged to exercise daily. The pt has been advised to call the office if there are any acute concerns about change in blood pressure readings at home. Pain with intercourse- advised TREVA mabry to decrease discomfort. 10/14/2010 Appointment: [facility]el[facility] [phone] [facility] [place] Other 10/14/2010 Patient Education: Patient [...] pt doing well with the cpap. . IFA-qhpjfokoli-rq changes Callus right toe -healed-no further treatment [...] to assure normal liver response to medications. [place] on 4th toe right foot lateral surface [...]
--- OUTSIDE RECORDS SUMMARY | 2019-07-08 08:26 | XMS REPORT | CCD ---
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 Unknown Has never used illegal drugs 011 Allergies, Adverse Reactions, Alerts Allergies, Adverse Reactions, Alerts data not found Past Medical History Illness Codes Condition Status Onset Date Resolved Date Rash and other nonsp ecific skin eruption ICD-9: 782.1 ICD-10: R21 Active 03/11/2017 Unknown Essential (primary) hypertension ICD-9: 401.1 ICD-10: I10 Active 02/21/2016 Unknown Mixed hyperlipidemia ICD-9: 272.2 ICD-10: E78.2 Active 10/16/2016 Unknown Encounter for immuni zation ICD-9: V04.81 ICD-10: Z23 Active 12/09/2016 Unknown Encounter for screen ing mammogram for malignant neoplasm of breast ICD-9: V76.12 ICD-10: Z12.31 Active 10/16/2016 Unknown Low back pain ICD-9: 724.2 ICD-10: [...] Condition Codes Effectiv e Dates Condition Status Rash and other nonsp ecific skin eruption ICD-9: 782.1 ICD-10: R21 03/11/2017 Active Essential (primary) hypertension ICD-9: 401.1 ICD-10: I10 02/21/2016 Active Mixed hyperlipidemia ICD-9: 272.2 ICD-10: E78.2 10/16/2016 Active Encounter for immuni zation ICD-9: V04.81 ICD-10: Z23 12/09/2016 Active Encounter for screen ing mammogram for malignant neoplasm of breast ICD-9: V76.12 ICD-10: Z12.31 10/16/2016 Active Low back pain ICD-9: 724.2 ICD-10: [...] 40 mg/mL wander pension for injection RxNorm: 6862827 1 Milliliter(s) Inj 03/11/2017 03/11/2017 In active prednisone 20 mg tablet RxNorm: 379229 2 Tablet(s) PO daily 03/11/2017 03/15/2017 Active simvastatin 20 mg ta blet RxNorm: 590415 TAKE 1 TABLET EVERY DAY 01/02/2017 12/27/2017 Active lisinopril 40 mg tablet RxNorm: 074612 TAKE 1 TABLET EVERY DAY 11/24/2016 08/20/2017 Active metoprolol succinate ER 50 mg tablet,extended release 24 hr RxNorm: 183538 TAKE 1 TABLET TWICE DAILY 11/24/2016 11/18/2017 Active fluconazole 150 mg t ablet RxNorm: 759569 1 Tablet(s) PO daily prn yeast infection symptoms 10/16/2016 10/25/2016 Inactive potassium chloride E R 10 mEq capsule,extended release RxNorm: 564299 TAKE 1 CAPSULE THREE TIMES WEEKLY 08/12/2016 08/06/2017 Active chlorthalidone 25 mg tablet RxNorm: 319095 TAKE 1 TABLET EVERY M ORNING 06/30/2016 06/24/2017 Ac tive simvastatin 20 mg ta blet RxNorm: 414336 TAKE 1 TABLET EVERY DAY 01/21/2016 01/01/2017 Inactive lisinopril 40 mg tablet RxNorm: 735456 1/2 Tablet(s) daily 12/18/2015 11/23/2016 Inactive metoprolol succinate ER 50 mg tablet,extended release 24 hr RxNorm: 708078 Tablet(s) TAKE 1 TABLET TWICE DAILY 12/13/2015 11/23/2016 Inactive metoprolol succinate ER 50 mg tablet,extended release 24 hr RxNorm: 398174 Tablet(s) TAKE 1 TABLET TWICE DAILY 12/13/2015 12/12/2015 Inactive metoprolol succinate ER 50 mg tablet,extended release 24 hr RxNorm: 371364 Tablet(s) TAKE 1 TABLET TWICE DAILY 11/13/2015 12/12/2015 Inactive Keflex 500 mg capsule RxNorm: 279966 1 Capsule(s) PO TID 11/13/2015 11/19/2015 Inactive chlorthalidone 25 mg tablet RxNorm: 584954 1 Tablet(s) PO QAM 08/08/2015 06/29/2016 Inactive potassium chloride E R 10 mEq capsule,extended release RxNorm: 408292 1 Capsule(s) PO TIW 08/08/2015 08/01/2016 Inactive potassium chloride E R 10 mEq capsule,extended release RxNorm: 824542 1 Capsule(s) PO TIW 06/20/2015 08/07/2015 Inactive lisinopril 40 mg tablet RxNorm: 547288 TAKE 1 TABLET EVERY DAY 2015 12/17/2015 Inactive potassium chloride E R 10 mEq capsule,extended release RxNorm: 682454 1 Capsule(s) PO TIW 2015 06/19/2015 Inactive chlorthalidone 25 mg tablet RxNorm: 949588 1 Tablet(s) PO QAM 06/05/2015 08/07/2015 Inactive potassium chloride E R 10 mEq capsule,extended release RxNorm: 736895 1 Capsule(s) PO TIW 06/05/2015 06/17/2015 Inactive lisinopril 40 mg tablet RxNorm: 513637 1/2 Tablet(s) PO BID 05/07/2015 06/17/2015 Inactive amoxicillin 500 mg t ablet RxNorm: 090217 4 Tablet(s) PO one ho ur prior to dental appts UD 05/07/2015 10/08/2015 Inactive amoxicillin 500 mg t ablet RxNorm: 577545 4 Tablet(s) PO one ho ur prior to dental appts UD 05/04/2015 05/06/2015 Inactive lisinopril 40 mg tablet RxNorm: 135746 1/2 Tablet(s) PO BID 05/04/2015 05/06/2015 Inactive amoxicillin 500 mg t ablet RxNorm: 289848 4 Tablet(s) PO one ho ur prior to dental appts UD 05/01/2015 05/03/2015 Inactive lisinopril 40 mg tablet RxNorm: 315070 1/2 Tablet(s) PO BID TAKE 1 TABLET DAILY 05/01/2015 05/03/2015 In active metoprolol succinate ER 50 mg tablet,extended release 24 hr RxNorm: 509348 TAKE 1 AND 1/2 TABLETS TWICE DAILY 04/16/2015 11/12/2015 Inactive simvastatin 20 mg ta blet RxNorm: 440049 TAKE 1 TABLET EVERY DAY 04/16/2015 01/10/2016 Inactive acyclovir 800 mg tablet RxNorm: 706823 1 Tablet(s) PO TID 11/17/2014 11/26/2014 Inactive acyclovir 400 mg tablet RxNorm: 554401 2 Tablet(s) PO QID 10/06/2014 10/05/2014 Inactive acyclovir 400 mg tablet RxNorm: 346034 2 Tablet(s) PO QID 10/06/2014 10/15/2014 Inactive cephalexin 500 mg ca psule RxNorm: 582155 1 Capsule(s) PO TID 08/31/2014 09/04/2014 Inactive Bactroban 2 % topica l ointment RxNorm: 376948 1 Application TOP BID 08/31/2014 10/08/2015 Inactive Bactroban 2 % topica l ointment RxNorm: 250762 1 Application TOP BID 08/31/2014 09/04/2014 Inactive simvastatin 20 mg ta blet RxNorm: 056486 Tablet(s) TAKE 1 TABL ET DAILY 03/31/2014 04/15/2015 In active lisinopril 40 mg tablet RxNorm: 228208 Tablet(s) TAKE 1 TABLET DAILY 03/31/2014 04/30/2015 In active metoprolol succinate ER 50 mg tablet,extended release 24 hr RxNorm: 947526 Tablet(s) TAKE ONE AND ONE-HALF TABLETS (75 MG) TWICE A DAY 03/09/2014 04/15/2015 Inactive Prio r authorization approved for this med until 03-09-2015 metoprolol succinate ER 50 mg tablet,extended release 24 hr RxNorm: 118587 Tablet(s) TAKE ONE AND ONE-HALF TABLETS (75 MG) TWICE A DAY 03/06/2014 03/08/2014 Inactive simvastatin 20 mg ta blet RxNorm: 613372 TAKE 1 TABLET DAILY 01/24/2014 03/30/2014 Inactive lisinopril 40 mg tablet RxNorm: 160352 TAKE 1 TABLET DAILY 01/24/2014 03/30/2014 Inactive simvastatin 20 mg ta blet RxNorm: 690385 TAKE 1 TABLET DAILY 10/24/2013 01/23/2014 Inactive cephalexin 500 mg ca psule RxNorm: 935340 1 Capsule(s) PO TID 10/04/2013 10/08/2013 Inactive metoprolol succinate ER 50 mg tablet,extended release 24 hr RxNorm: 603015 TAKE ONE AND ONE-HALF TABLETS (75 MG) TWICE A DAY 09/16/2013 03/05/2014 Inactive simvastatin 20 mg ta blet RxNorm: 645926 Tablet(s) PO TAKE 1 T ABLET DAILY 04/21/2013 10/23/2013 In active metoprolol succinate ER 50 mg tablet,extended release 24 hr RxNorm: 049876 Tablet(s) PO TAKE ONE AND ONE-HALF TABLETS (75 MG) TWICE A DAY 03/24/2013 09/15/2013 Inactive metoprolol succinate ER 50 mg tablet,extended release 24 hr RxNorm: 679662 Tablet(s) PO TAKE ONE AND ONE-HALF TABLETS (75 MG) TWICE A DAY 12/20/2012 03/23/2013 Inactive lisinopril 40 mg tablet RxNorm: 836360 Tablet(s) PO TAKE 1 TABLET DAILY 11/18/2012 01/23/2014 In active simvastatin 20 mg ta blet RxNorm: 734006 Tablet(s) PO TAKE 1 T ABLET DAILY 08/06/2012 04/20/2013 In active metoprolol succinate ER 50 mg tablet,extended release 24 hr RxNorm: 653086 Tablet(s) PO TAKE ONE AND ONE-HALF TABLETS (75 MG) TWICE A DAY 06/15/2012 12/19/2012 Inactive metoprolol succinate ER 50 mg tablet,extended release 24 hr RxNorm: 072283 Tablet(s) PO TAKE ONE AND ONE-HALF TABLETS (75 MG) TWICE A DAY 03/01/2012 06/14/2012 Inactive Diflucan 150 mg tablet RxNorm: 761246 1 Tablet(s) PO daily 12/03/2011 12/02/2011 Inactive Diflucan 150 mg tablet RxNorm: 302769 1 Tablet(s) PO daily 12/03/2011 12/07/2011 Inactive Diflucan 150 mg tablet RxNorm: 372700 1 Tablet(s) PO daily 12/03/2011 12/02/2011 Inactive Influenza Virus Vacc ine 0.5 mL RxNorm: IM 11/25/2011 11/25/2011 Inactive metoprolol succinate ER 50 mg tablet,extended release 24 hr RxNorm: 707681 Tablet(s) PO 09/16/2011 02/29/2012 Inactive TAKE ONE AND ONE-HALF TABLETS (75 MG) TW ICE A DAY lisinopril 40 mg tablet RxNorm: 355291 Tablet(s) PO 08/25/2011 11/17/2012 Inactive TAKE 1 TABLET DAILY simvastatin 20 mg ta blet RxNorm: 444051 Tablet(s) PO 07/31/2011 08/05/2012 Inactive TAKE 1 TABLET DAILY Influenza Virus Vacc ine 0.5 mL RxNorm: 1/2 Milliliter(s) IM 12/19/2010 12/19/2010 Inactive metoprolol succinate ER 50 mg tablet,extended release 24 hr RxNorm: 338883 Tablet(s) PO 12/02/2010 09/15/2011 Inactive TAKE ONE AND ONE-HALF TABLETS (75 MG) TW ICE A DAY Calcium 600 + D(3) 6 00 mg (1,500 mg)-400 unit Tab RxNorm: 795037 1 Tablet(s) PO daily No Start Date Active Tylenol PM Extra Str ength 25 mg-500 mg Tab RxNorm: 8564726 1 Tablet(s) PO QHS No Start Date Active Probiotic & Acidophi lesa oral RxNorm: oral No Start D ate Active Fish Oil 1,200 mg-14 4 mg-216 mg Cap RxNorm: 1 Capsule(s) PO BID No Start Date Active 1400mg multivitamin Cap RxNorm: 1 Capsule(s) PO daily No Start Date Active Aspirin Childrens 81 mg Chewable Tab RxNorm: 625525 1 Tablet(s) PO daily No Start Date Active premarin 0.5% Vagina l cream RxNorm: [address] art Date 08/30/2014 Inactive simvastatin 20 mg Tab RxNorm: 397009 1 Tablet(s) PO daily No Start Date 07/30/2011 Inactive lisinopril 40 mg Tab RxNorm: 340581 1 Tablet(s) PO daily No Start Date 08/24/2011 Inactive Fish Oil 340 mg-1,00 0 mg Cap RxNorm: 1 Capsule(s) PO TID No Start Date 04/14/2011 Inactive [place] 20 mg Tab RxNorm: 135681 1 Tablet(s) PO daily No Start Date 04/14/2011 Inactive metoprolol succinate ER 50 mg 24 hr Tab RxNorm: 654270 1 &1/2 Tablet(s) PO d aily No Start Date 12/01/2010 Inactive Medication Administered Medication Codes Instruc tions Start Date Status Kenalog 40 mg/mL suspension for injection RxNorm: 5505074 1Milliliter 03/11/2017 A ctive Influenza Virus Vaccine 0.5 mL RxNorm: 11/25/2011 No longer Active Influenza Virus Vaccine 0.5 mL RxNorm: 1/2Milliliter 12/19/2010 No longer Active Immunizations Vaccine Codes Date Status Influenza CVX: 141 12/09 completed Influenza CVX: 141 11/12 completed Influenza CVX: 141 11/24 completed Influenza CVX: 141 12/19 completed Assessments Condition Codes Effectiv e Dates Rash and other nonspecific skin eruption ICD-10: R21 ICD-9: 782.1 03/11/2017 Mixed hyperlipidemia ICD-10: E78.2 ICD-9: 272.2 02/19/2017 Essential (primary) hypertension ICD -10: I10 ICD-9: 401.1 02/19/2017 Encounter for immunization ICD-10: Z 23 ICD-9: V04.81 12/09/2016 Encounter for screening mammogram for ma lignant neoplasm of breast ICD-10: Z12.31 ICD-9: V76.12 10/16/2016 Primary central sleep apnea ICD-10: G47.31 ICD-9: [...] Visit Reason For Visit Effective Dates Notes rash 03/11/2017 hypertension 02/19/2017 vaccination against influenza [...] 35.5 % 10/17/2016 Cbc With Differential Ord2 MCV 89.4 fl 10/17/2016 Cbc With Differential Ord2 Lymph% 25.6 % 10/17/2016 Cbc With Differential Ord2 MCH 30.2 pg 10/17/2016 Cbc With Differential Ord2 [place]% 6.3 % 10/17/2016 Cbc With Differential Ord2 Eos% 3.4 % 10/17/2016 Cbc With Differential Ord2 MCHC 33.8 pg 10/17/2016 Cbc With Differential Ord2 Baso% 0.4 % 10/17/2016 Cbc With Differential Ord2 PLT 213 K/ul 10/17/2016 Cbc With Differential Ord2 RDW 13.5 % 10/17/2016 Cbc With Differential Ord2 Neut ABS# 3.45 K/ul 10/17/2016 Cbc With Differential Ord2 Lymph ABS# 1.37 K/ul 10/17/2016 Cbc With Differential Ord2 [place] ABS# 0.3 K/ul 10/17/2016 Cbc With Differential Ord2 Eos ABS# 0.2 K/ul 10/17/2016 Cbc With Differential Ord2 Baso ABS# 0.0 K/ul 10/17/2016 Comp Metabolic Jet779 NA 141 mEq/L 10/17/2016 Comp Metabolic Ddg434 K 3.9 mEq/L 10/17/2016 Comp Metabolic Oue747 CL 105 mEq/L 10/17/2016 Comp Metabolic Ncr503 CO2 26.0 mEq/L 10/17/2016 Comp Metabolic Hqf962 AN ION GAP 14 10/17/2016 Comp Metabolic Iuc872 GL UCOSE 100 mg/dL 10/17/2016 Comp Metabolic Qqw777 Cr eat 1.0 mg/dL 10/17/2016 Comp Metabolic Noi074 eG FR 61 ml/min/1.73m2 10/17 Comp Metabolic Itg251 BUN 17 mg/dL 10/17/2016 Comp Metabolic Dpu575 B/ C Ratio 17.7 Ratio 10/17/2016 Comp Metabolic Gyq998 CA LCIUM 9.8 mg/dL 10/17/2016 Comp Metabolic Zrp175 AL K PHOS 44 U/L 10/17/2016 Comp Metabolic Sjo708 T(SGOT) 15 U/L 10/17/2016 Comp Metabolic Nvq844 AL T(SGPT) 16 U/L 10/17/2016 Comp Metabolic Nwl852 BI LI T 0.5 mg/dL 10/17/2016 Comp Metabolic Iek026 AL BUMIN 4.3 g/dL 10/17/2016 Comp Metabolic Urg100 TP RO 6.5 g/dL 10/17/2016 Comp Metabolic Uri454 GL OB 2.3 g/dL 10/17/2016 Comp Metabolic Vbt096 A/ G Ratio 1.9 Ratio 10/17/2016 Comp Metabolic Deq833 Os mo 283 mOsmo 10/17/2016 Lipid Ord30 CHOL 134 mg/dL 10/17/2016 Lipid Ord30 HDL 48.0 mg/dl 10/17/2016 Lipid Ord30 TRIG 123 mg/dL 10/17/2016 Lipid Ord30 LDL 61 mg/dL 10/17/2016 Lipid Ord30 C/HDL 2.8 Ratio 10/17/2016 Comp Metabolic Ubr564 NA 140 mEq/L 02/28/2016 Comp Metabolic Hfc464 K 3.9 mEq/L 02/28/2016 Comp Metabolic Ojf408 CL 102 mEq/L 02/28/2016 Comp Metabolic Dot977 CO2 31.0 mEq/L 02/28/2016 Comp Metabolic Rsi494 AN ION GAP 11 02/28/2016 Comp Metabolic Mdc124 GL UCOSE 87 mg/dL 02/28/2016 Comp Metabolic Pwx055 Cr eat 1.2 mg/dL 02/28/2016 Comp Metabolic Bpe017 eG FR 45 ml/min/1.73m2 02/27 Comp Metabolic Cge935 BUN 23 mg/dL 02/28/2016 Comp Metabolic Rho895 B/ C Ratio 18.5 Ratio 02/28/2016 Comp Metabolic Ors271 CA LCIUM 9.2 mg/dL 02/28/2016 Comp Metabolic Ejy901 AL K PHOS 53 U/L 02/28/2016 Comp Metabolic Glh201 T(SGOT) 16 U/L 02/28/2016 Comp Metabolic Zgo552 AL T(SGPT) 17 U/L 02/28/2016 Comp Metabolic Coe428 BI LI T 0.5 mg/dL 02/28/2016 Comp Metabolic Rsy792 AL BUMIN 4.2 g/dL 02/28/2016 Comp Metabolic Bks872 TP RO 6.7 g/dL 02/28/2016 Comp Metabolic Ipt177 GL OB 2.5 g/dL 02/28/2016 Comp Metabolic Xma822 A/ G Ratio 1.7 Ratio 02/28/2016 Comp Metabolic Twz893 Os mo 282 mOsmo 02/28/2016 Cbc With [...] 90.6 fl 02/28/2016 Cbc With Differential Ord2 [place]% 5.6 % 02/28/2016 Cbc With Differential Ord2 MCH 30.5 pg 02/28/2016 Cbc With Differential Ord2 MCHC 33.6 pg 02/28/2016 Cbc With Differential Ord2 Eos% 3.9 % 02/28/2016 Cbc With Differential Ord2 PLT 214 K/ul 02/28/2016 Cbc With Differential Ord2 Baso% 0.4 % 02/28/2016 Cbc With Differential Ord2 RDW 13.8 % 02/28/2016 Cbc With Differential Ord2 Neut ABS# 3.44 K/ul 02/28/2016 Cbc With Differential Ord2 Lymph ABS# 1.21 K/ul 02/28/2016 Cbc With Differential Ord2 [place] ABS# 0.3 K/ul 02/28/2016 Cbc With Differential Ord2 Eos ABS# 0.2 K/ul 02/28/2016 Cbc With Differential Ord2 Baso ABS# 0.0 K/ul 02/28/2016 Lipid Ord30 CHOL 141 mg/dL 02/28/2016 Lipid Ord30 HDL 48.0 mg/dl 02/28/2016 Lipid Ord30 TRIG 144 mg/dL 02/28/2016 Lipid Ord30 LDL 64 mg/dL 02/28/2016 Lipid Ord30 C/HDL 2.9 Ratio 02/28/2016 Tsh Ord6 hTSH II 2.22 uIU/mL 02/28/2016 Culture Urine [id number] URI NE CULTURE SEE NOTES 11/15/2015 Urine [...] Ord30 C/HDL 2.7 Ratio 03/19/2015 Comp Metabolic Ohl767 NA 139 mEq/L 03/19/2015 Comp Metabolic Afe673 K 4.0 mEq/L 03/19/2015 Comp Metabolic Pme758 CL 105 mEq/L 03/19/2015 Comp Metabolic Ojz724 CO2 29.0 mEq/L 03/19/2015 Comp Metabolic Qqn224 AN ION GAP 9 03/19/2015 Comp Metabolic Uqv558 GL UCOSE 90 mg/dL 03/19/2015 Comp Metabolic Tvx750 Cr eat 0.8 mg/dL 03/19/2015 Comp Metabolic Sxe069 eG FR 80 ml/min/1.73m2 03/19 Comp Metabolic Zyj599 BUN 14 mg/dL 03/19/2015 Comp Metabolic Mvy206 B/ C Ratio 18.4 Ratio 03/19/2015 Comp Metabolic Pxi847 CA LCIUM 9.5 mg/dL 03/19/2015 Comp Metabolic Ktf712 AL K PHOS 39 U/L 03/19/2015 Comp Metabolic Ojk155 T(SGOT) 17 U/L 03/19/2015 Comp Metabolic Qjx462 AL T(SGPT) 22 U/L 03/19/2015 Comp Metabolic Kpm108 BI LI T 0.5 mg/dL 03/19/2015 Comp Metabolic Dxp359 AL BUMIN 4.2 g/dL 03/19/2015 Comp Metabolic Rag278 TP RO 6.3 g/dL 03/19/2015 Comp Metabolic Aco604 GL OB 2.1 g/dL 03/19/2015 Comp Metabolic Tho402 A/ G Ratio 2.0 Ratio 03/19/2015 Comp Metabolic Ojh299 Os mo 278 mOsmo 03/19/2015 Tsh Ord6 [...] 29.9 pg 03/19/2015 Cbc With Differential Ord2 [place]% 5.1 % 03/19/2015 Cbc With Differential Ord2 Eos% 2.6 % 03/19/2015 Cbc With Differential Ord2 MCHC 33.4 pg 03/19/2015 Cbc With Differential Ord2 Baso% 0.4 % 03/19/2015 Cbc With Differential Ord2 PLT 219 K/ul 03/19/2015 Cbc With Differential Ord2 Neut ABS# 2.65 K/ul 03/19/2015 Cbc With Differential Ord2 RDW 13.9 % 03/19/2015 Cbc With Differential Ord2 Lymph ABS# 1.52 K/ul 03/19/2015 Cbc With Differential Ord2 [place] ABS# 0.2 K/ul 03/19/2015 Cbc With Differential [...] Ord30 C/HDL 3.2 Ratio 09/29/2014 Comp Metabolic Grg505 NA 139 mEq/L 09/29/2014 Comp Metabolic Lsh491 K 4.1 mEq/L 09/29/2014 Comp Metabolic Evc482 CL 104 mEq/L 09/29/2014 Comp Metabolic Uhk056 CO2 31.0 mEq/L 09/29/2014 Comp Metabolic Qri901 AN ION GAP 8 09/29/2014 Comp Metabolic Gos855 GL UCOSE 96 mg/dL 09/29/2014 Comp Metabolic Iuy216 Cr eat 0.8 mg/dL 09/29/2014 Comp Metabolic Rpq284 eG FR 71 ml/min/1.73m2 09/29 Comp Metabolic Mzb959 BUN 13 mg/dL 09/29/2014 Comp Metabolic Zzo546 B/ C Ratio 15.5 Ratio 09/29/2014 Comp Metabolic Wgi266 CA LCIUM 9.5 mg/dL 09/29/2014 Comp Metabolic Ffz733 AL K PHOS 42 U/L 09/29/2014 Comp Metabolic Qvp965 T(SGOT) 20 U/L 09/29/2014 Comp Metabolic Cfc999 AL T(SGPT) 26 U/L 09/29/2014 Comp Metabolic Ptv876 BI LI T 0.5 mg/dL 09/29/2014 Comp Metabolic Ygo724 AL BUMIN 4.4 g/dL 09/29/2014 Comp Metabolic Nde827 TP RO 6.5 g/dL 09/29/2014 Comp Metabolic Asr717 GL OB 2.1 g/dL 09/29/2014 Comp Metabolic Qbb200 A/ G Ratio 2.1 Ratio 09/29/2014 Comp Metabolic Vpc769 Os mo 278 mOsmo 09/29/2014 Tsh Ord6 [...] Result Effective Dates Constitutional No recent illness 03/11/2017 Constitutional No [...] affect 11/30/2012 None Full Exam - General 1995 Psychiatric mood and affect Mood: happy 11/30/2012 [...] intact 05/31/2012 None Full Exam - General 1995 [...] retractions 10/14/2010 None Procedures Procedure Codes Date THER/PROPH/DIAG INJ SC/IM CPT-4: 57563 03/11/2017 TRIAMCINOLONE ACET I [place] NOS CPT-4: J3301 03/11/2017 FLU VAC NO PRSV 4 VA L 3 YRS+ CPT-4: 71814 12/09/2016 ADMIN INFLUENZA VIRU S VAC CPT-4: G0008 12/09/2016 URINALYSIS NONAUTO W /O SCOPE CPT-4: 24481 11/13/2015 IMMUNIZATION ADMIN CPT- 4: 79625 11/13/2015 FLU VACC 4 [place] 3 YRS PLUS IM SNOMED CT: 30835217 CPT-4: 89732 11/13/2015 PPPS, SUBSEQ VISIT CPT- 4: G0439 10/10/2015 IMMUNIZATION ADMIN CPT- 4: 98764 11/25/2011 Influenza Virus Vacc ine, Split Virus, >3 Yrs, IM CPT-4: 35018 11/25/2011 ADMIN INFLUENZA VIRU S VAC CPT-4: G0008 12/19/2010 FLULAVAL VACC, 3 YRS & >, IM CPT-4: Q2036 12/19/2010 Vital Signs Date Vital 03/11/2017 Blood Pressure 1: 128/74 Code: 8480-6 BMI: 34.9 Code: 61311-8 Heart Rate 1: 68 bpm Height: 5'3" SpO2: 96% Weight: 197 lbs 02/19/2017 Blood Pressure 1: 108/62 Code: 8480-6 BMI: 34.9 Code: 01057-6 Heart Rate 1: 74 bpm Height: 5'3" SpO2: 97% Weight: 197 lbs 10/16/2016 Blood Pressure 1: 130/72 Code: 8480-6 BMI: 34.5 Code: 17419-8 Heart Rate 1: 65 bpm Height: 5'3" SpO2: 978% Weight: 194 lbs 8 oz 06/19/2016 Blood Pressure 1: 134/80 Code: 8480-6 BMI: 32.9 Code: 49554-5 Heart Rate 1: 69 bpm Height: 5'3" SpO2: 98% Weight: 186 lbs 03/13/2016 Blood Pressure 1: 118/74 Code: 8480-6 BMI: 32.4 Code: 81815-0 Heart Rate 1: 71 bpm Height: 5'3" SpO2: 96% Weight: 183 lbs 02/22/2016 Blood Pressure 1: 116/64 Code: 8480-6 BMI: 31.5 Code: 38863-0 Heart Rate 1: 71 bpm Height: 5'3" SpO2: 99% Weight: 178 lbs 12/18/2015 Blood Pressure 1: 94/60 Code: 8480-6 BMI: 31.1 Code: 07507-5 Heart Rate 1: 72 bpm Height: 5'3" SpO2: 99% Weight: 175 lbs 8 oz 11/13/2015 Blood Pressure 1: 104/64 Code: 8480-6 BMI: 32.4 Code: 84193-9 Heart Rate 1: 66 bpm Height: 5'3" SpO2: 97% Weight: 183 lbs 10/10/2015 Blood Pressure 1: 112/67 Code: 8480-6 BMI: 32.6 Code: 13754-3 Heart Rate 1: 78 bpm Height: 5'3" SpO2: 97% Weight: 184 lbs 07/23/2015 Blood Pressure 1: 104/64 Code: 8480-6 Blood Pressure 1: 10864 Code: 8480-6 Heart Rate 1: 70 bpm SpO2: 97% 07/10/2015 Blood Pressure 1: 118/64 Code: 8480-6 BMI: 32.6 Code: 38521-7 Heart Rate 1: 61 bpm Height: 5'3" SpO2: 98% Weight: 184 lbs 06/05/2015 Blood Pressure 1: 164/70 Code: 8480-6 BMI: 32.4 Code: 53859-0 Heart Rate 1: 68 bpm Height: 5'3" SpO2: 97% Weight: 183 lbs 05/01/2015 Blood Pressure 1: 150/78 Code: 8480-6 BMI: 32.4 Code: 74861-4 Heart Rate 1: 87 bpm Height: 5'3" SpO2: 95% Weight: 183 lbs 04/09/2015 Blood Pressure 1: 158/68 Code: 8480-6 BMI: 32.9 Code: 41741-6 Heart Rate 1: 78 bpm Height: 5'3" SpO2: 97% Weight: 186 lbs 03/26/2015 Blood Pressure 1: 140/76 Code: 8480-6 BMI: 33.7 Code: 63114-2 Heart Rate 1: 64 bpm Height: 5'3" SpO2: 98% Weight: 190 lbs 11/17/2014 Blood Pressure 1: 146/80 Code: 8480-6 BMI: 33.5 Code: 86105-3 Heart Rate 1: 60 bpm Height: 5'3" SpO2: 97% Weight: 189 lbs 10/31/2014 Blood Pressure 1: 130/72 Code: 8480-6 BMI: 33.7 Code: 19674-1 Heart Rate 1: 59 bpm Height: 5'3" SpO2: 96% Weight: 190 lbs 09/28/2014 Blood Pressure 1: 130/86 Code: 8480-6 Blood Pressure 1: 130/72 Code: 8480-6 BMI: 33.7 Code: 70320-9 Heart Rate 1: 58 bpm Height: 5'3" SpO2: 97% Weight: 190 lbs 08/31/2014 Blood Pressure 1: 122/84 Code: 8480-6 BMI: 34.0 Code: 19121-3 Height: 5'3" Weight: 192 lbs 05/29/2014 Blood Pressure 1: 120/68 Code: 8480-6 BMI: 33.8 Code: 62029-3 Heart Rate 1: 87 bpm Height: 5'3" SpO2: 97% Weight: 191 lbs 11/29/2013 Blood Pressure 1: 138/76 Code: 8480-6 BMI: 33.8 Code: 68162-3 Heart Rate 1: 68 bpm Height: 5'3" Weight: 191 lbs 10/04/2013 Blood Pressure 1: 140/88 Code: 8480-6 BMI: 33.1 Code: 96756-2 Heart Rate 1: 72 bpm Height: 5'3" Weight: 187 lbs 05/31/2013 Blood Pressure 1: 132/84 Code: 8480-6 Heart Rate 1: 60 bpm Weight: 191 lbs 11/30/2012 Blood Pressure 1: 128/72 Code: 8480-6 BMI: 33.5 Code: 63783-6 Heart Rate 1: 72 bpm Height: 5'3" Weight: 189 lbs 05/31/2012 Blood Pressure 1: 126/66 Code: 8480-6 BMI: 35.1 Code: 46536-7 Heart Rate 1: 72 bpm Height: 5'3" Weight: 198 lbs 11/25/2011 Blood Pressure 1: 156/80 Code: 8480-6 BMI: 34.2 Code: 74109-6 Heart Rate 1: 64 bpm Height: 5'3" Weight: 196 lbs 08/21/2011 Blood Pressure 1: 118/78 Code: 8480-6 Heart Rate 1: 68 bpm Respiratory Rate: 16 bpm Weight: 184 lbs 04/14/2011 Blood Pressure 1: 128/68 Code: 8480-6 BMI: 34.2 Code: 12265-1 Heart Rate 1: 56 bpm Height: 5'3" Respiratory Rate: 20 bpm Weight: 193 lbs 10/14/2010 Blood Pressure 1: 124/72 Code: 8480-6 BMI: 30.9 Code: 29086-9 Heart Rate 1: 60 bpm Height: 5'4" Respiratory Rate: 12 bpm Weight: 180 lbs Functional Status No Functional Status data History of Present Illness Symptom Name Status Resu lt Effective Date Notes rash Location-Major on t he upper body 03/11/2017 None rash Location-Head/Neck on the left roman catholic 03/11/2017 None rash Location-Head/Neck on the right [...] dizziness 11/29/2013 1 episode reported last w [place] hypertension Pertinent Findings Denies dyspnea 11/29/2013 None [...] Encounters Encounter Performer Loca tion Codes Date EST. PATIENT, LEVEL III Diagnosis: Rash and other nonspecific skin eruption[ICD10: R21] [facility] CPT-4: 13045 03/11/2017 [id number]) [id number] EST. P ATIENT, LEVEL IV Diagnosis: Essential (primary) hypertension[ICD10: I10] Diagnosis: Mixed hyperlipidemia[ICD10: E78.2] [facility] CPT- 4: 70818 02/19/2017 [id number]) [id number] EST. P ATIENT, LEVEL IV Diagnosis: Encounter for screening mammogram for malignant neoplasm of breast[ICD10: Z12.31] Diagnosis: Essential (primary) hypertension[ICD10: I10] Diagnosis: Mixed hyperlipidemia[ICD10: E78.2] Evelyn Yeung MD, [facility] CPT- 4: 85428 10/16/2016 ([id number]) [id number] EST. P ATIENT, LEVEL IV Diagnosis: Essential (primary) hypertension[ICD10: I10] Diagnosis: Primary central sleep apnea[ICD10: G47.31] Diagnosis: Low back pain[ICD10: M54.5] Evelyn Yeung MD, [facility] CPT-4: 06945 06/19/2016 ([id number]) 76350 EST. P ATIENT, LEVEL III Diagnosis: Pain in left shoulder[ICD10: M25.512] Diagnosis: Pain in left upper arm[ICD10: M79.622] Kat Yeung MD, [facility] CPT-4: 76015 03/13/2016 ([id number]) [id number] EST. P ATIENT, LEVEL III Diagnosis: Essential (primary) hypertension[ICD10: I10] Diagnosis: Pain in left shoulder[ICD10: M25.512] Kat Yeung MD, [facility] CPT-4: 24290 02/22/2016 ([id number]) 90307 EST. P ATIENT, LEVEL III Diagnosis: Orthostatic hypotension[ICD10: I95.1] Evelyn Yeung MD, [facility] CPT-4: 31658 12/18/2015 ([id number]) 58504 EST. P ATIENT, LEVEL III Diagnosis: Essential (primary) hypertension[ICD10: I10] Diagnosis: Dysuria[ICD10: R30.0] Diagnosis: VACCIN FOR INFLUENZA[ICD10: Z23] [facility] CPT-4: 35240 11/13/2015 ([id number]) Miscellaneou s no charge Diagnosis: Essential (primary) hypertension[ICD10: I10] [facility] CPT-4: 42172 07/23/2015 ([id number]) 28251 EST. P ATIENT, LEVEL III Diagnosis: Essential (primary) hypertension[ICD10: I10] [facility] CPT-4: 95175 07/10/2015 ([id number]) 39226 EST. P ATIENT, LEVEL IV Diagnosis: Essential (primary) hypertension[ICD10: I10] Diagnosis: Primary central sleep apnea[ICD10: G47.31] Diagnosis: Anemia, unspecified[ICD10: D64.9] Evelyn Yeung MD, [facility] CPT-4: 64873 06/05/2015 ([id number]) 70175 EST. P ATIENT, LEVEL III Diagnosis: Essential (primary) hypertension[ICD10: I10] Evelyn Yeung MD, [facility] CPT-4: 50480 05/01/2015 25033 EST. PATIENT, LEVEL III Diagnosis: Pain in right knee[ICD10: M25.561] Diagnosis: Essential (primary) hypertension[ICD10: I10] Diagnosis: Encounter for follow-up examination after completed treatment for conditions other than malignant neoplasm[ICD10: Z09] Fay Yeung MD, [facility] CPT-4: 92569 04/09/2015 ([id number]) 48698 EST. P ATIENT, LEVEL IV Diagnosis: Essential (primary) hypertension[ICD10: I10] Diagnosis: Pain in right knee[ICD10: M25.561] Evelyn Yeung MD, [facility] CPT- 4: 91904 03/26/2015 ([id number]) 85926 EST. P ATIENT, LEVEL III Diagnosis: Left upper quadrant pain[ICD10: R10.12] Diagnosis: Lower abdominal pain, unspecified[ICD10: R10.30] Diagnosis: Recurrent oral aphthae[ICD10: K12.0] Evelyn Yeung MD, [facility] CPT-4: 34011 11/17/2014 ([id number]) 97595 EST. P ATIENT, LEVEL III Diagnosis: Left groin pain[ICD9: 789.09] Evelyn Yeung MD, [facility] CPT-4: 33706 10/31/2014 ([id number]) 16486 EST. P ATIENT, LEVEL IV Diagnosis: ESSENTIAL HYPERTENSION[ICD9: 401.9] Diagnosis: HYPERLIPIDEMIA[ICD9: 272.4] Evelyn Yeung MD, [facility] CPT-4: 18027 09/28/2014 ([id number]) 50236 EST. P ATIENT, LEVEL III Diagnosis: CELLULITIS OF FACE[ICD9: 682.0] Tatiana Yeung MD, [facility] CPT-4: 10730 08/31/2014 ([id number]) 53369 EST. P ATIENT, LEVEL IV Diagnosis: ESSENTIAL HYPERTENSION[ICD9: 401.9] Diagnosis: Hyperlipidemia[ICD9: 272.4] Diagnosis: Reyes's cyst of knee[ICD9: 727.51] Evelyn Yeung MD, [facility] CPT- 4: 50421 05/29/2014 ([id number]) 78448 EST. P ATIENT, LEVEL III Diagnosis: ESSENTIAL HYPERTENSION[ICD9: 401.9] Diagnosis: HYPERLIPIDEMIA[ICD9: 272.4] Evelyn Yeung MD, [facility] CPT-4: 49317 11/29/2013 ([id number]) 95658 EST. P ATIENT, LEVEL III Diagnosis: CELLULITIS OF FACE[ICD9: 682.0] Evelyn Yeung MD, [facility] CPT-4: 06988 10/04/2013 ([id number]) 56950 EST. P ATIENT, LEVEL IV Diagnosis: ESSENTIAL HYPERTENSION[SNOMED: 69303288] Diagnosis: HYPERLIPIDEMIA[ICD9: 272.4] Evelyn Yeung MD, [facility] CPT-4: 49121 05/31/2013 ([id number]) 56665 EST. P ATIENT, LEVEL III Diagnosis: ESSENTIAL HYPERTENSION[SNOMED: 56396972] Diagnosis: ABN FINDINGS NEC[ICD9: 796.9] Evelyn Yeung MD, [facility] CPT-4: 22495 11/30/2012 ([id number]) 08377 EST. P ATIENT, LEVEL IV Diagnosis: ESSENTIAL HYPERTENSION[SNOMED: 40931570] Diagnosis: HYPERLIPIDEMIA[ICD9: 272.4] Diagnosis: Abnormal Pap smear[ICD9: 796.9] Evelyn Yeung MD, [facility] CPT-4: 43195 05/31/2012 ([id number]) 32509 EST. P ATIENT, LEVEL III Diagnosis: Abnormal Pap smear[ICD9: 796.9] Diagnosis: ESSENTIAL HYPERTENSION[SNOMED: 81137214] Evelyn Yeung MD, C CPT-4: 28287 11/25/2011 ([id number]) 20127 EST. 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 P ATIENT, LEVEL IV Diagnosis: ESSENTIAL HYPERTENSION[SNOMED: 64925103] Diagnosis: Hyperlipidemia[ICD9: 272.4] Diagnosis: Annual physical exam[ICD9: V70.0] Evelyn Yeung MD, [facility] CPT-4: 85530 04/14/2011 14658 EST. PATIENT, LEVEL III Diagnosis: ESSENTIAL HYPERTENSION[SNOMED: 48016629] Diagnosis: Dyspareunia, female[ICD9: 625.0] Evelyn Yeung MD, [facility] CPT-4: 68002 10/14/2010 Plan of Care Planned Activity Notes C odes Status Date Patient Education: Patient Medication Summary Completed 03/11/2017 Appointment: Evelyn Yeung WPtel: [address] [place], [place] [phone] (15 min) Moderate 02/19/2017 Patient Education: Patient Medication Summary Completed 02/19/2017 Appointment: Injection 12/09/2016 Patient Education: Patient Medication Summary Completed 12/09/2016 Appointment: Evelyn Yeung WPtel: [address] [place], [place] [id number] (15 min) Moderate 10/16/2016 Patient Education: Patient Medication Summary Completed 10/16/2016 Patient Education: Obesity Completed 10/16/2016 Appointment: [facility] [place] (15 min) Moderate 06/19/2016 Patient Education: Patient Medication Summary Completed 06/19/2016 Patient Education: Obesity Completed 06/19/2016 Appointment: Kat Mitchell WPtel: [address] [place], [place] [phone] [place] (15 min) Moderate 03/13/2016 Appointment: [facility]Ptel[facility] [phone] [facility] [place] (15 min) Moderate 03/13/2016 Patient Education: Patient Medication Summary Completed 03/13/2016 Patient Education: Obesity Completed 03/13/2016 Appointment: Kat Mitchell WPtel: [phone] [phone] [place] (15 min) Moderate 02/22/2016 Patient Education: Patient Medication Summary Completed 02/22/2016 Patient Education: Obesity Completed 02/22/2016 Appointment: Kat Mitchell WPtel: [phone] [phone] [place] (30 min) Complex 02/06/2016 Appointment: Evelyn Yeung [facility]Ptel[facility] [place] (15 min) Moderate 12/18/2015 Patient Education: Patient Medication Summary Completed 12/18/2015 Patient Education: Obesity Completed 12/18/2015 App[facility]ment: [facility] [phone] [facility] [place] (15 min) Moderate 11/13/2015 Patient Education: Patient Medication Summary Completed 11/13/2015 Patient Education: Obesity Completed 11/13/2015 Care Plan: Urine Culture Pending 11/13/2015 Appointment: Kat Mitchell WPtel[phone] [place] (30 min) Complex 10/10/2015 Patient Education: Patient Medication Summary Completed 10/10/2015 Patient Education: Obesity Completed 10/10/2015 Appointment: Nurse Visit 07/23/2015 Patient Education: Patient Medication Summary Completed 07/23/2015 Patient Education: Hypertension Completed 07/23/2015 App[facility]ment: [facility] [phone] [facility] [place] (15 min) Moderate 07/10/2015 Patient Education: Patient Medication Summary Completed 07/10/2015 Patient Education: Obesity Completed 07/10/2015 Appointment: Evelyn Yeung WPtel: [phone] (15 min) Moderate 06/05/2015 Patient Education: Patient Medication Summary Completed 06/05/2015 Patient Education: Obesity Completed 06/05/2015 Patient Education: Patient Medication Summary Completed 05/01/2015 Patient Education: Obesity Completed 05/01/2015 Patient Education: Hypertension Completed 05/01/2015 Appointment: (30 min) Complex 04/09/2015 Patient Education: Patient Medication Summary Completed 04/09/2015 Patient Education: Hypertension Completed 04/09/2015 Appointment: Evelyn Yeung WPtel: [address] [place], [place] [phone] (15 min) Moderate 03/29/2015 Patient Education: Patient Medication Summary Completed 03/26/2015 Patient Education: Hypertension Completed 03/26/2015 Appointment: (15 min) Moderate 11/17/2014 Patient Education: Patient Medication Summary Completed 11/17/2014 Patient Education: Patient Medication Summary Completed 10/31/2014 Appointment: Evelyn Yeung WPtel: [address] [place] [phone] Follow up 09/28/2014 Patient Education: Patient Medication Summary Completed 09/28/2014 Patient Education: Hypertension Completed 09/28/2014 Care Plan: COMPLETE CBC AUTOMATED LOINC : 12716-6 Ordered 09/28/2014 Patient Education: Patient Medication Summary Completed 08/31/2014 Appointment: Evelyn Yeung WPtel: [address] [place], [place] [phone] Follow up 05/29/2014 Patient Education: Patient Medication Summary Completed 05/29/2014 Patient Education: Hypertension Completed 05/29/2014 Appointment: Evelyn Yeung WPtel: [address] [place], [place] [phone] Follow up 11/29/2013 Patient Education: Patient Medication Summary Completed 11/29/2013 Patient Education: Hypertension Completed 11/29/2013 Care Plan: COMPLETE CBC AUTOMATED LOINC : 79539-4 Ordered 11/29/2013 Appointment: Evelyn Yeung WPtel: [address] [place], [place] [phone] [place] Sick 10/04/2013 Patient Education: Patient Medication Summary Completed 10/04/2013 Appointment: Evelyn Yeung WPtel: [address] [place] [phone] [place] Follow up 05/31/2013 Patient Education: Patient Medication Summary Completed 05/31/2013 Patient Education: Hypertension Completed 05/31/2013 Appointment: Evelyn Yeung WPtel: [address] [place], [place] [phone] [place] Pap Only 11/30/2012 Patient Education: Patient Medication Summary Completed 11/30/2012 Patient Education: Hypertension Completed 11/30/2012 Appointment: Evelyn Yeung WPtel: [address] [place], [place] [phone] [place] Pap Only 05/31/2012 Patient Education: Patient Medication Summary Completed 05/31/2012 Patient Education: Hypertension Completed 05/31/2012 Appointment: Evelyn Yeung WPtel: [address] [place], [place] [phone] [place] Pap Only 11/25/2011 Patient Education: Patient Medication Summary Completed 11/25/2011 Patient Education: High Blood Pressure: Essential Hypertension Completed 11/25/2011 Appointment: Evelyn Yeung WPtel: [address] [place], [place] [phone] [place] Pap Only 09/01/2011 Appointment: Evelyn Yeung WPtel: [address] [place] [phone] [place] Pap Only 08/26/2011 Appointment: Evelyn Yeung WPtel: [address] [place] [phone] [place] Pap Only 08/21/2011 Patient Education: Patient Medication Summary Completed 08/21/2011 Patient Education: High Blood Pressure: Essential Hypertension Completed 08/21/2011 Appointment: Evelyn Yeung WPtel: [address] [place] [phone] [place] Other 04/16/2011 Appointment: Evelyn Yeung WPtel: [address] [place], [place] [phone] [place] Pap Only 04/14/2011 Patient Education: Patient Medication Summary Completed 04/14/2011 Patient Education: High Blood Pressure: Essential Hypertension Completed 04/14/2011 App[facility]ment: [facility] [phone] [phone] Injection 12/19/2010 Patient Education: Patient Medication Summary Completed 12/19/2010 App[facility]ment: [facility] [phone] [facility] [facility] 10/14/2010 Patient Education: Patient Medication Summary Completed 10/14/2010 Instructions No Instructions
--- OUTSIDE RECORDS SUMMARY | 2019-07-08 08:28 | XMS REPORT | CCD ---
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 10/14/[address]: 348232270 Never smoker 10/14/[address]: 164653550 Never drinks alcohol 10/14/2010 Has the patient [...] Instruc tions Start Date Stop Date Sta Fill Instructions prednisone 20 mg tablet RxNorm: 875324 2 Tablet(s) PO daily 03/11/2017 03/15/2017 Active Kenalog 40 mg/mL wander pension for injection RxNorm: 3662318 1 Milliliter(s) Inj 03/11/2017 03/11/2017 In active simvastatin 20 mg ta blet RxNorm: 174396 TAKE 1 TABLET EVERY DAY 01/02/2017 12/27/2017 Active lisinopril 40 mg tablet RxNorm: 456038 TAKE 1 TABLET EVERY DAY 11/24/2016 08/20/2017 Active metoprolol succinate ER 50 mg tablet,extended release 24 hr RxNorm: 871356 TAKE 1 TABLET TWICE DAILY 11/24/2016 11/18/2017 Active fluconazole 150 mg t ablet RxNorm: 946966 1 Tablet(s) PO daily prn yeast infection symptoms 10/16/2016 10/25/2016 Inactive potassium chloride E R 10 mEq capsule,extended release RxNorm: 463912 TAKE 1 CAPSULE THREE TIMES WEEKLY 08/12/2016 08/06/2017 Active chlorthalidone 25 mg tablet RxNorm: 147957 TAKE 1 TABLET EVERY M ORNING 06/30/2016 06/24/2017 Ac tive simvastatin 20 mg ta blet RxNorm: 211732 TAKE 1 TABLET EVERY DAY 01/21/2016 01/01/2017 Inactive lisinopril 40 mg tablet RxNorm: 576078 1/2 Tablet(s) daily 12/18/2015 11/23/2016 Inactive metoprolol succinate ER 50 mg tablet,extended release 24 hr RxNorm: 798690 Tablet(s) TAKE 1 TABLET TWICE DAILY 12/13/2015 11/23/2016 Inactive metoprolol succinate ER 50 mg tablet,extended release 24 hr RxNorm: 600009 Tablet(s) TAKE 1 TABLET TWICE DAILY 12/13/2015 12/12/2015 Inactive metoprolol succinate ER 50 mg tablet,extended release 24 hr RxNorm: 666343 Tablet(s) TAKE 1 TABLET TWICE DAILY 11/13/2015 12/12/2015 Inactive Keflex 500 mg capsule RxNorm: 222069 1 Capsule(s) PO TID 11/13/2015 11/19/2015 Inactive chlorthalidone 25 mg tablet RxNorm: 996008 1 Tablet(s) PO QAM 08/08/2015 06/29/2016 Inactive potassium chloride E R 10 mEq capsule,extended release RxNorm: 864201 1 Capsule(s) PO TIW 08/08/2015 08/01/2016 Inactive potassium chloride E R 10 mEq capsule,extended release RxNorm: 722723 1 Capsule(s) PO TIW 06/20/2015 08/07/2015 Inactive lisinopril 40 mg tablet RxNorm: 837269 TAKE 1 TABLET EVERY DAY 2015 12/17/2015 Inactive potassium chloride E R 10 mEq capsule,extended release RxNorm: 513067 1 Capsule(s) PO TIW 2015 06/19/2015 Inactive chlorthalidone 25 mg tablet RxNorm: 327253 1 Tablet(s) PO QAM 06/05/2015 08/07/2015 Inactive potassium chloride E R 10 mEq capsule,extended release RxNorm: 904736 1 Capsule(s) PO TIW 06/05/2015 06/17/2015 Inactive lisinopril 40 mg tablet RxNorm: 985548 1/2 Tablet(s) PO BID 05/07/2015 06/17/2015 Inactive amoxicillin 500 mg t ablet RxNorm: 942074 4 Tablet(s) PO one ho ur prior to dental appts UD 05/07/2015 10/08/2015 Inactive amoxicillin 500 mg t ablet RxNorm: 505789 4 Tablet(s) PO one ho ur prior to dental appts UD 05/04/2015 05/06/2015 Inactive lisinopril 40 mg tablet RxNorm: 608740 1/2 Tablet(s) PO BID 05/04/2015 05/06/2015 Inactive amoxicillin 500 mg t ablet RxNorm: 647479 4 Tablet(s) PO one ho ur prior to dental appts UD 05/01/2015 05/03/2015 Inactive lisinopril 40 mg tablet RxNorm: 746266 1/2 Tablet(s) PO BID TAKE 1 TABLET DAILY 05/01/2015 05/03/2015 In active metoprolol succinate ER 50 mg tablet,extended release 24 hr RxNorm: 142570 TAKE 1 AND 1/2 TABLETS TWICE DAILY 04/16/2015 11/12/2015 Inactive simvastatin 20 mg ta blet RxNorm: 273123 TAKE 1 TABLET EVERY DAY 04/16/2015 01/10/2016 Inactive acyclovir 800 mg tablet RxNorm: 441263 1 Tablet(s) PO TID 11/17/2014 11/26/2014 Inactive acyclovir 400 mg tablet RxNorm: 332329 2 Tablet(s) PO QID 10/06/2014 10/05/2014 Inactive acyclovir 400 mg tablet RxNorm: 447181 2 Tablet(s) PO QID 10/06/2014 10/15/2014 Inactive cephalexin 500 mg ca psule RxNorm: 886401 1 Capsule(s) PO TID 08/31/2014 09/04/2014 Inactive Bactroban 2 % topica l ointment RxNorm: 777653 1 Application TOP BID 08/31/2014 10/08/2015 Inactive Bactroban 2 % topica l ointment RxNorm: 260166 1 Application TOP BID 08/31/2014 09/04/2014 Inactive simvastatin 20 mg ta blet RxNorm: 766618 Tablet(s) TAKE 1 TABL ET DAILY 03/31/2014 04/15/2015 In active lisinopril 40 mg tablet RxNorm: 454277 Tablet(s) TAKE 1 TABLET DAILY 03/31/2014 04/30/2015 In active metoprolol succinate ER 50 mg tablet,extended release 24 hr RxNorm: 502722 Tablet(s) TAKE ONE AND ONE-HALF TABLETS (75 MG) TWICE A DAY 03/09/2014 04/15/2015 Inactive Prio r authorization approved for this med until 03-09-2015 metoprolol succinate ER 50 mg tablet,extended release 24 hr RxNorm: 749839 Tablet(s) TAKE ONE AND ONE-HALF TABLETS (75 MG) TWICE A DAY 03/06/2014 03/08/2014 Inactive simvastatin 20 mg ta blet RxNorm: 629755 TAKE 1 TABLET DAILY 01/24/2014 03/30/2014 Inactive lisinopril 40 mg tablet RxNorm: 798611 TAKE 1 TABLET DAILY 01/24/2014 03/30/2014 Inactive simvastatin 20 mg ta blet RxNorm: 647622 TAKE 1 TABLET DAILY 10/24/2013 01/23/2014 Inactive cephalexin 500 mg ca psule RxNorm: 025999 1 Capsule(s) PO TID 10/04/2013 10/08/2013 Inactive metoprolol succinate ER 50 mg tablet,extended release 24 hr RxNorm: 929084 TAKE ONE AND ONE-HALF TABLETS (75 MG) TWICE A DAY 09/16/2013 03/05/2014 Inactive simvastatin 20 mg ta blet RxNorm: 137699 Tablet(s) PO TAKE 1 T ABLET DAILY 04/21/2013 10/23/2013 In active metoprolol succinate ER 50 mg tablet,extended release 24 hr RxNorm: 397735 Tablet(s) PO TAKE ONE AND ONE-HALF TABLETS (75 MG) TWICE A DAY 03/24/2013 09/15/2013 Inactive metoprolol succinate ER 50 mg tablet,extended release 24 hr RxNorm: 005395 Tablet(s) PO TAKE ONE AND ONE-HALF TABLETS (75 MG) TWICE A DAY 12/20/2012 03/23/2013 Inactive lisinopril 40 mg tablet RxNorm: 556452 Tablet(s) PO TAKE 1 TABLET DAILY 11/18/2012 01/23/2014 In active simvastatin 20 mg ta blet RxNorm: 385133 Tablet(s) PO TAKE 1 T ABLET DAILY 08/06/2012 04/20/2013 In active metoprolol succinate ER 50 mg tablet,extended release 24 hr RxNorm: 875169 Tablet(s) PO TAKE ONE AND ONE-HALF TABLETS (75 MG) TWICE A DAY 06/15/2012 12/19/2012 Inactive metoprolol succinate ER 50 mg tablet,extended release 24 hr RxNorm: 363233 Tablet(s) PO TAKE ONE AND ONE-HALF TABLETS (75 MG) TWICE A DAY 03/01/2012 06/14/2012 Inactive Diflucan 150 mg tablet RxNorm: 214790 1 Tablet(s) PO daily 12/03/2011 12/02/2011 Inactive Diflucan 150 mg tablet RxNorm: 915431 1 Tablet(s) PO daily 12/03/2011 12/07/2011 Inactive Diflucan 150 mg tablet RxNorm: 612380 1 Tablet(s) PO daily 12/03/2011 12/02/2011 Inactive Influenza Virus Vacc ine 0.5 mL RxNorm: IM 11/25/2011 11/25/2011 Inactive metoprolol succinate ER 50 mg tablet,extended release 24 hr RxNorm: 992735 Tablet(s) PO 09/16/2011 02/29/2012 Inactive TAKE ONE AND ONE-HALF TABLETS (75 MG) TW ICE A DAY lisinopril 40 mg tablet RxNorm: 213752 Tablet(s) PO 08/25/2011 11/17/2012 Inactive TAKE 1 TABLET DAILY simvastatin 20 mg ta blet RxNorm: 026602 Tablet(s) PO 07/31/2011 08/05/2012 Inactive TAKE 1 TABLET DAILY Influenza Virus Vacc ine 0.5 mL RxNorm: 1/2 Milliliter(s) IM 12/19/2010 12/19/2010 Inactive metoprolol succinate ER 50 mg tablet,extended release 24 hr RxNorm: 656730 Tablet(s) PO 12/02/2010 09/15/2011 Inactive TAKE ONE AND ONE-HALF TABLETS (75 MG) TW ICE A DAY Calcium 600 + D(3) 6 00 mg (1,500 mg)-400 unit Tab RxNorm: 401324 1 Tablet(s) PO daily No Start Date Active Tylenol PM Extra Str ength 25 mg-500 mg Tab RxNorm: 8219425 1 Tablet(s) PO QHS No Start Date Active Probiotic & Acidophi lesa oral RxNorm: oral No Start D ate Active Fish Oil 1,200 mg-14 4 mg-216 mg Cap RxNorm: 1 Capsule(s) PO BID No Start Date Active 1400mg multivitamin Cap RxNorm: 1 Capsule(s) PO daily No Start Date Active Aspirin Childrens 81 mg Chewable Tab RxNorm: 424167 1 Tablet(s) PO daily No Start Date Active premarin 0.5% Vagina l cream RxNorm: [address] art Date 08/30/2014 Inactive simvastatin 20 mg Tab RxNorm: 540075 1 Tablet(s) PO daily No Start Date 07/30/2011 Inactive lisinopril 40 mg Tab RxNorm: 511230 1 Tablet(s) PO daily No Start Date 08/24/2011 Inactive Fish Oil 340 mg-1,00 0 mg Cap RxNorm: 1 Capsule(s) PO TID No Start Date 04/14/2011 Inactive [place] 20 mg Tab RxNorm: 609829 1 Tablet(s) PO daily No Start Date 04/14/2011 Inactive metoprolol succinate ER 50 mg 24 hr Tab RxNorm: 380385 1 &1/2 Tablet(s) PO d aily No Start Date 12/01/2010 Inactive Medication Administered Medication Codes Instruc tions Start Date Status Kenalog 40 mg/mL suspension for injection RxNorm: 1405395 1Milliliter 03/11/2017 N o longer Active Influenza [...] 30.2 pg 10/17/2016 Cbc With Differential Ord2 [place]% 6.3 % 10/17/2016 Cbc With Differential Ord2 [...] 1.37 K/ul 10/17/2016 Cbc With Differential Ord2 [place] ABS# 0.3 K/ul 10/17/2016 Cbc With Differential Ord2 Eos ABS# 0.2 K/ul 10/17/2016 Cbc With Differential Ord2 Baso ABS# 0.0 K/ul 10/17/2016 Comp Metabolic Dyp452 NA 141 mEq/L 10/17/2016 Comp Metabolic Rqf737 K 3.9 mEq/L 10/17/2016 Comp Metabolic Xxa639 CL 105 mEq/L 10/17/2016 Comp Metabolic Hmy871 CO2 26.0 mEq/L 10/17/2016 Comp Metabolic Voq105 AN ION GAP 14 10/17/2016 Comp Metabolic Ett785 GL UCOSE 100 mg/dL 10/17/2016 Comp Metabolic Sgl178 Cr eat 1.0 mg/dL 10/17/2016 Comp Metabolic Dxa963 eG FR 61 ml/min/1.73m2 10/17 Comp Metabolic Ttj342 BUN 17 mg/dL 10/17/2016 Comp Metabolic Rnx279 B/ C Ratio 17.7 Ratio 10/17/2016 Comp Metabolic Yad952 CA LCIUM 9.8 mg/dL 10/17/2016 Comp Metabolic Qry229 AL K PHOS 44 U/L 10/17/2016 Comp Metabolic Gbj102 T(SGOT) 15 U/L 10/17/2016 Comp Metabolic Vwi870 AL T(SGPT) 16 U/L 10/17/2016 Comp Metabolic Jui611 BI LI T 0.5 mg/dL 10/17/2016 Comp Metabolic Lsh037 AL BUMIN 4.3 g/dL 10/17/2016 Comp Metabolic Sie226 TP RO 6.5 g/dL 10/17/2016 Comp Metabolic Lez620 GL OB 2.3 g/dL 10/17/2016 Comp Metabolic Ozq988 A/ G Ratio 1.9 Ratio 10/17/2016 Comp Metabolic Pie961 Os mo 283 mOsmo 10/17/2016 Lipid Ord30 CHOL 134 mg/dL 10/17/2016 Lipid Ord30 HDL 48.0 mg/dl 10/17/2016 Lipid Ord30 TRIG 123 mg/dL 10/17/2016 Lipid Ord30 LDL 61 mg/dL 10/17/2016 Lipid Ord30 C/HDL 2.8 Ratio 10/17/2016 Comp Metabolic Ymi646 NA 140 mEq/L 02/28/2016 Comp Metabolic Jwo902 K 3.9 mEq/L 02/28/2016 Comp Metabolic Pbt061 CL 102 mEq/L 02/28/2016 Comp Metabolic Yyg765 CO2 31.0 mEq/L 02/28/2016 Comp Metabolic Mpt970 AN ION GAP 11 02/28/2016 Comp Metabolic Awo775 GL UCOSE 87 mg/dL 02/28/2016 Comp Metabolic Stv302 Cr eat 1.2 mg/dL 02/28/2016 Comp Metabolic Zfe966 eG FR 45 ml/min/1.73m2 02/27 Comp Metabolic Zhy740 BUN 23 mg/dL 02/28/2016 Comp Metabolic Heb856 B/ C Ratio 18.5 Ratio 02/28/2016 Comp Metabolic Mow609 CA LCIUM 9.2 mg/dL 02/28/2016 Comp Metabolic Ekq135 AL K PHOS 53 U/L 02/28/2016 Comp Metabolic Odc907 T(SGOT) 16 U/L 02/28/2016 Comp Metabolic Nnw793 AL T(SGPT) 17 U/L 02/28/2016 Comp Metabolic Umd216 BI LI T 0.5 mg/dL 02/28/2016 Comp Metabolic Tnr495 AL BUMIN 4.2 g/dL 02/28/2016 Comp Metabolic Ata489 TP RO 6.7 g/dL 02/28/2016 Comp Metabolic Hfz497 GL OB 2.5 g/dL 02/28/2016 Comp Metabolic Yme782 A/ G Ratio 1.7 Ratio 02/28/2016 Comp Metabolic Rwe808 Os mo 282 mOsmo 02/28/2016 Cbc With [...] 90.6 fl 02/28/2016 Cbc With Differential Ord2 [place]% 5.6 % 02/28/2016 Cbc With Differential Ord2 [...] 1.21 K/ul 02/28/2016 Cbc With Differential Ord2 [place] ABS# 0.3 K/ul 02/28/2016 Cbc With Differential Ord2 Eos ABS# 0.2 K/ul 02/28/2016 Cbc With Differential Ord2 Baso ABS# 0.0 K/ul 02/28/2016 Lipid Ord30 CHOL 141 mg/dL 02/28/2016 Lipid Ord30 HDL 48.0 mg/dl 02/28/2016 Lipid Ord30 TRIG 144 mg/dL 02/28/2016 Lipid Ord30 LDL 64 mg/dL 02/28/2016 Lipid Ord30 C/HDL 2.9 Ratio 02/28/2016 Tsh Ord6 hTSH II 2.22 uIU/mL 02/28/2016 Culture Urine [id number] URI NE CULTURE SEE NOTES 11/15/2015 Urine [...] Ord30 C/HDL 2.7 Ratio 03/19/2015 Comp Metabolic Eif066 NA 139 mEq/L 03/19/2015 Comp Metabolic Lke593 K 4.0 mEq/L 03/19/2015 Comp Metabolic Rhn490 CL 105 mEq/L 03/19/2015 Comp Metabolic Swh894 CO2 29.0 mEq/L 03/19/2015 Comp Metabolic Jzy610 AN ION GAP 9 03/19/2015 Comp Metabolic Wpr393 GL UCOSE 90 mg/dL 03/19/2015 Comp Metabolic Cfr441 Cr eat 0.8 mg/dL 03/19/2015 Comp Metabolic Hbt072 eG FR 80 ml/min/1.73m2 03/19 Comp Metabolic Sex433 BUN 14 mg/dL 03/19/2015 Comp Metabolic Sno897 B/ C Ratio 18.4 Ratio 03/19/2015 Comp Metabolic Cun341 CA LCIUM 9.5 mg/dL 03/19/2015 Comp Metabolic Oyf125 AL K PHOS 39 U/L 03/19/2015 Comp Metabolic Avh277 T(SGOT) 17 U/L 03/19/2015 Comp Metabolic Sqw204 AL T(SGPT) 22 U/L 03/19/2015 Comp Metabolic Xgl469 BI LI T 0.5 mg/dL 03/19/2015 Comp Metabolic Hjf717 AL BUMIN 4.2 g/dL 03/19/2015 Comp Metabolic Nws357 TP RO 6.3 g/dL 03/19/2015 Comp Metabolic Xwc747 GL OB 2.1 g/dL 03/19/2015 Comp Metabolic Dkq974 A/ G Ratio 2.0 Ratio 03/19/2015 Comp Metabolic Ajw647 Os mo 278 mOsmo 03/19/2015 Tsh Ord6 [...] 29.9 pg 03/19/2015 Cbc With Differential Ord2 [place]% 5.1 % 03/19/2015 Cbc With Differential Ord2 [...] 1.52 K/ul 03/19/2015 Cbc With Differential Ord2 [place] ABS# 0.2 K/ul 03/19/2015 Cbc With Differential [...] Ord30 C/HDL 3.2 Ratio 09/29/2014 Comp Metabolic Gyg997 NA 139 mEq/L 09/29/2014 Comp Metabolic Gqr172 K 4.1 mEq/L 09/29/2014 Comp Metabolic Age178 CL 104 mEq/L 09/29/2014 Comp Metabolic Bwa762 CO2 31.0 mEq/L 09/29/2014 Comp Metabolic Aat401 AN ION GAP 8 09/29/2014 Comp Metabolic Eoa746 GL UCOSE 96 mg/dL 09/29/2014 Comp Metabolic Zfz131 Cr eat 0.8 mg/dL 09/29/2014 Comp Metabolic Euk141 eG FR 71 ml/min/1.73m2 09/29 Comp Metabolic Jyn250 BUN 13 mg/dL 09/29/2014 Comp Metabolic Tya262 B/ C Ratio 15.5 Ratio 09/29/2014 Comp Metabolic Pgj970 CA LCIUM 9.5 mg/dL 09/29/2014 Comp Metabolic Weg791 AL K PHOS 42 U/L 09/29/2014 Comp Metabolic Xvn467 T(SGOT) 20 U/L 09/29/2014 Comp Metabolic Tjg900 AL T(SGPT) 26 U/L 09/29/2014 Comp Metabolic Iyi796 BI LI T 0.5 mg/dL 09/29/2014 Comp Metabolic Iac248 AL BUMIN 4.4 g/dL 09/29/2014 Comp Metabolic Azc702 TP RO 6.5 g/dL 09/29/2014 Comp Metabolic Gys467 GL OB 2.1 g/dL 09/29/2014 Comp Metabolic Xde529 A/ G Ratio 2.1 Ratio 09/29/2014 Comp Metabolic Hqv766 Os mo 278 mOsmo 09/29/2014 Tsh Ord6 [...] Procedure Codes Date THER/PROPH/DIAG INJ SC/IM CPT-4: 91165 03/11/2017 TRIAMCINOLONE ACET I [place] NOS CPT-4: J3301 03/11/2017 FLU VAC NO PRSV 4 VA L 3 YRS+ CPT-4: 63561 12/09/2016 ADMIN INFLUENZA VIRU S VAC CPT-4: G0008 12/09/2016 URINALYSIS NONAUTO W /O SCOPE CPT-4: 26442 11/13/2015 IMMUNIZATION ADMIN CPT- 4: 15124 11/13/2015 FLU VACC 4 [place] 3 YRS PLUS IM SNOMED CT: 85642642 CPT-4: 96068 11/13/2015 PPPS, SUBSEQ VISIT CPT- 4: G0439 10/10/2015 IMMUNIZATION ADMIN CPT- 4: 19611 11/25/2011 Influenza Virus Vacc ine, Split Virus, >3 Yrs, IM CPT-4: 80228 11/25/2011 ADMIN INFLUENZA VIRU S VAC CPT-4: G0008 12/19/2010 FLULAVAL VACC, 3 YRS & >, IM CPT-4: Q2036 12/19/2010 Vital Signs Date Vital 03/11/2017 Blood Pressure 1: 128/74 Code: 8480-6 BMI: 34.9 Code: 39355-3 Heart Rate 1: 68 bpm Height: 5'3" SpO2: 96% Weight: 197 lbs 02/19/2017 Blood Pressure 1: 108/62 Code: 8480-6 BMI: 34.9 Code: 95740-4 Heart Rate 1: 74 bpm Height: 5'3" SpO2: 97% Weight: 197 lbs 10/16/2016 Blood Pressure 1: 130/72 Code: 8480-6 BMI: 34.5 Code: 50375-1 Heart Rate 1: 65 bpm Height: 5'3" SpO2: 978% Weight: 194 lbs 8 oz 06/19/2016 Blood Pressure 1: 134/80 Code: 8480-6 BMI: 32.9 Code: 30854-7 Heart Rate 1: 69 bpm Height: 5'3" SpO2: 98% Weight: 186 lbs 03/13/2016 Blood Pressure 1: 118/74 Code: 8480-6 BMI: 32.4 Code: 43167-2 Heart Rate 1: 71 bpm Height: 5'3" SpO2: 96% Weight: 183 lbs 02/22/2016 Blood Pressure 1: 116/64 Code: 8480-6 BMI: 31.5 Code: 59886-5 Heart Rate 1: 71 bpm Height: 5'3" SpO2: 99% Weight: 178 lbs 12/18/2015 Blood Pressure 1: 94/60 Code: 8480-6 BMI: 31.1 Code: 05313-0 Heart Rate 1: 72 bpm Height: 5'3" SpO2: 99% Weight: 175 lbs 8 oz 11/13/2015 Blood Pressure 1: 104/64 Code: 8480-6 BMI: 32.4 Code: 77322-8 Heart Rate 1: 66 bpm Height: 5'3" SpO2: 97% Weight: 183 lbs 10/10/2015 Blood Pressure 1: 112/67 Code: 8480-6 BMI: 32.6 Code: 77806-3 Heart Rate 1: 78 bpm Height: 5'3" SpO2: 97% Weight: 184 lbs 07/23/2015 Blood Pressure 1: 104/64 Code: 8480-6 Blood Pressure 1: 108/64 Code: 8480-6 Heart Rate 1: 70 bpm SpO2: 97% 07/10/2015 Blood Pressure 1: 118/64 Code: 8480-6 BMI: 32.6 Code: 89326-4 Heart Rate 1: 61 bpm Height: 5'3" SpO2: 98% Weight: 184 lbs 06/05/2015 Blood Pressure 1: 164/70 Code: 8480-6 BMI: 32.4 Code: 23283-1 Heart Rate 1: 68 bpm Height: 5'3" SpO2: 97% Weight: 183 lbs 05/01/2015 Blood Pressure 1: 150/78 Code: 8480-6 BMI: 32.4 Code: 11041-3 Heart Rate 1: 87 bpm Height: 5'3" SpO2: 95% Weight: 183 lbs 04/09/2015 Blood Pressure 1: 158/68 Code: 8480-6 BMI: 32.9 Code: 09863-0 Heart Rate 1: 78 bpm Height: 5'3" SpO2: 97% Weight: 186 lbs 03/26/2015 Blood Pressure 1: 140/76 Code: 8480-6 BMI: 33.7 Code: 16304-3 Heart Rate 1: 64 bpm Height: 5'3" SpO2: 98% Weight: 190 lbs 11/17/2014 Blood Pressure 1: 146/80 Code: 8480-6 BMI: 33.5 Code: 89607-1 Heart Rate 1: 60 bpm Height: 5'3" SpO2: 97% Weight: 189 lbs 10/31/2014 Blood Pressure 1: 130/72 Code: 8480-6 BMI: 33.7 Code: 85653-4 Heart Rate 1: 59 bpm Height: 5'3" SpO2: 96% Weight: 190 lbs 09/28/2014 Blood Pressure 1: 130/86 Code: 8480-6 Blood Pressure 1: 130/72 Code: 8480-6 BMI: 33.7 Code: 45822-9 Heart Rate 1: 58 bpm Height: 5'3" SpO2: 97% Weight: 190 lbs 08/31/2014 Blood Pressure 1: 122/84 Code: 8480-6 BMI: 34.0 Code: 95102-6 Height: 5'3" Weight: 192 lbs 05/29/2014 Blood Pressure 1: 120/68 Code: 8480-6 BMI: 33.8 Code: 63728-8 Heart Rate 1: 87 bpm Height: 5'3" SpO2: 97% Weight: 191 lbs 11/29/2013 Blood Pressure 1: 138/76 Code: 8480-6 BMI: 33.8 Code: 44472-3 Heart Rate 1: 68 bpm Height: 5'3" Weight: 191 lbs 10/04/2013 Blood Pressure 1: 140/88 Code: 8480-6 BMI: 33.1 Code: 06049-7 Heart Rate 1: 72 bpm Height: 5'3" Weight: 187 lbs 05/31/2013 Blood Pressure 1: 132/84 Code: 8480-6 Heart Rate 1: 60 bpm Weight: 191 lbs 11/30/2012 Blood Pressure 1: 128/72 Code: 8480-6 BMI: 33.5 Code: 70465-1 Heart Rate 1: 72 bpm Height: 5'3" Weight: 189 lbs 05/31/2012 Blood Pressure 1: 126/66 Code: 8480-6 BMI: 35.1 Code: 36272-7 Heart Rate 1: 72 bpm Height: 5'3" Weight: 198 lbs 11/25/2011 Blood Pressure 1: 156/80 Code: 8480-6 BMI: 34.2 Code: 54980-9 Heart Rate 1: 64 bpm Height: 5'3" Weight: 196 lbs 08/21/2011 Blood Pressure 1: 118/78 Code: 8480-6 Heart Rate 1: 68 bpm Respiratory Rate: 16 bpm Weight: 184 lbs 04/14/2011 Blood Pressure 1: 128/68 Code: 8480-6 BMI: 34.2 Code: 42464-5 Heart Rate 1: 56 bpm Height: 5'3" Respiratory Rate: 20 bpm Weight: 193 lbs 10/14/2010 Blood Pressure 1: 124/72 Code: 8480-6 BMI: 30.9 Code: 24126-8 Heart Rate 1: 60 bpm Height: 5'4" Respiratory Rate: 12 bpm Weight: 180 lbs Functional Status No Functional Status data History of Present Illness Symptom Name Status Resu lt Effective Date Notes rash Location-Major on t he upper body 03/11/2017 None rash Location-Head/Neck on the left [facility] 03/11/2017 None rash Location-Head/Neck on the right [...] dizziness 11/29/2013 1 episode reported last w [place] hypertension Pertinent Findings Denies dyspnea 11/29/2013 None [...] Encounters Encounter Performer Loca tion Codes Date 05047 EST. PATIENT, LEVEL III Diagnosis: Rash and other nonspecific skin eruption[ICD10: R21] [facility] CPT-4: 65224 03/11/2017 [id number]) 49089 EST. P ATIENT, LEVEL IV Diagnosis: Essential (primary) hypertension[ICD10: I10] Diagnosis: Mixed hyperlipidemia[ICD10: E78.2] [facility] CPT- 4: 44217 02/19/2017 [id number]) [id number] EST. P ATIENT, LEVEL IV Diagnosis: Encounter for screening mammogram for malignant neoplasm of breast[ICD10: Z12.31] Diagnosis: Essential (primary) hypertension[ICD10: I10] Diagnosis: Mixed hyperlipidemia[ICD10: E78.2] Evelyn Yeung MD, [facility] CPT- 4: 91009 10/16/2016 ([id number]) 92182 EST. P ATIENT, LEVEL IV Diagnosis: Essential (primary) hypertension[ICD10: I10] Diagnosis: Primary central sleep apnea[ICD10: G47.31] Diagnosis: Low back pain[ICD10: M54.5] Evelyn Yeung MD, [facility] CPT-4: 14272 06/19/2016 ([id number]) 35659 EST. P ATIENT, LEVEL III Diagnosis: Pain in left shoulder[ICD10: M25.512] Diagnosis: Pain in left upper arm[ICD10: M79.622] Kat Yeung MD, [facility] CPT-4: 63953 03/13/2016 ([id number]) 68608 EST. P ATIENT, LEVEL III Diagnosis: Essential (primary) hypertension[ICD10: I10] Diagnosis: Pain in left shoulder[ICD10: M25.512] Kat Yeung MD, [facility] CPT-4: 65340 02/22/2016 ([id number]) 30951 EST. P ATIENT, LEVEL III Diagnosis: Orthostatic hypotension[ICD10: I95.1] Evelyn Yeung MD, [facility] CPT-4: 38395 12/18/2015 ([id number]) 17169 EST. P ATIENT, LEVEL III Diagnosis: Essential (primary) hypertension[ICD10: I10] Diagnosis: Dysuria[ICD10: R30.0] Diagnosis: VACCIN FOR INFLUENZA[ICD10: Z23] [facility] CPT-4: 87073 11/13/2015 ([id number]) Miscellaneou s no charge Diagnosis: Essential (primary) hypertension[ICD10: I10] [facility] CPT-4: 93168 07/23/2015 ([id number]) 27129 EST. P ATIENT, LEVEL III Diagnosis: Essential (primary) hypertension[ICD10: I10] [facility] CPT-4: 00340 07/10/2015 ([id number]) 56958 EST. P ATIENT, LEVEL IV Diagnosis: Essential (primary) hypertension[ICD10: I10] Diagnosis: Primary central sleep apnea[ICD10: G47.31] Diagnosis: Anemia, unspecified[ICD10: D64.9] Evelyn Yeung MD, [facility] CPT-4: 72962 06/05/2015 ([id number]) 04254 EST. P ATIENT, LEVEL III Diagnosis: Essential (primary) hypertension[ICD10: I10] [facility] CPT-4: 89325 05/01/2015 70394 EST. PATIENT, LEVEL III Diagnosis: Pain in right knee[ICD10: M25.561] Diagnosis: Essential (primary) hypertension[ICD10: I10] Diagnosis: Encounter for follow-up examination after completed treatment for conditions other than malignant neoplasm[ICD10: Z09] Fay Yeung MD, [facility] CPT-4: 59349 04/09/2015 ([id number]) 59362 EST. P ATIENT, LEVEL IV Diagnosis: Essential (primary) hypertension[ICD10: I10] Diagnosis: Pain in right knee[ICD10: M25.561] Evelyn Yeung MD, [facility] CPT- 4: 47091 03/26/2015 ([id number]) 30386 EST. P ATIENT, LEVEL III Diagnosis: Left upper quadrant pain[ICD10: R10.12] Diagnosis: Lower abdominal pain, unspecified[ICD10: R10.30] Diagnosis: Recurrent oral aphthae[ICD10: K12.0] Evelyn Yeung MD, [facility] CPT-4: 51248 11/17/2014 ([id number]) 04555 EST. P ATIENT, LEVEL III Diagnosis: Left groin pain[ICD9: 789.09] Evelyn Yeung MD, [facility] CPT-4: 44355 10/31/2014 ([id number]) 61379 EST. P ATIENT, LEVEL IV Diagnosis: ESSENTIAL HYPERTENSION[ICD9: 401.9] Diagnosis: HYPERLIPIDEMIA[ICD9: 272.4] Evelyn Yeung MD, [facility] CPT-4: 87031 09/28/2014 ([id number]) 98924 EST. P ATIENT, LEVEL III Diagnosis: CELLULITIS OF FACE[ICD9: 682.0] Tatiana Yeung MD, [facility] CPT-4: 16809 08/31/2014 ([id number]) 72051 EST. P ATIENT, LEVEL IV Diagnosis: ESSENTIAL HYPERTENSION[ICD9: 401.9] Diagnosis: Hyperlipidemia[ICD9: 272.4] Diagnosis: Reyes's cyst of knee[ICD9: 727.51] Evelyn Yeung MD, [facility] CPT- 4: 07510 05/29/2014 ([id number]) 54114 EST. P ATIENT, LEVEL III Diagnosis: ESSENTIAL HYPERTENSION[ICD9: 401.9] Diagnosis: HYPERLIPIDEMIA[ICD9: 272.4] Evelyn Yeung MD, [facility] CPT-4: 64309 11/29/2013 ([id number]) 19754 EST. P ATIENT, LEVEL III Diagnosis: CELLULITIS OF FACE[ICD9: 682.0] Evelyn Yeung MD, [facility] CPT-4: 79685 10/04/2013 ([id number]) 38654 EST. P ATIENT, LEVEL IV Diagnosis: ESSENTIAL HYPERTENSION[SNOMED: 88288838] Diagnosis: HYPERLIPIDEMIA[ICD9: 272.4] Evelyn Yeung MD, [facility] CPT-4: 29085 05/31/2013 ([id number]) 17943 EST. P ATIENT, LEVEL III Diagnosis: ESSENTIAL HYPERTENSION[SNOMED: 36099751] Diagnosis: ABN FINDINGS NEC[ICD9: 796.9] Evelyn Yeung MD, [facility] CPT-4: 64973 11/30/2012 ([id number]) 76544 EST. P ATIENT, LEVEL IV Diagnosis: ESSENTIAL HYPERTENSION[SNOMED: 33144265] Diagnosis: HYPERLIPIDEMIA[ICD9: 272.4] Diagnosis: Abnormal Pap smear[ICD9: 796.9] Evelyn Yeung MD, [facility] CPT-4: 80601 05/31/2012 ([id number]) 92571 EST. P ATIENT, LEVEL III Diagnosis: Abnormal Pap smear[ICD9: 796.9] Diagnosis: ESSENTIAL HYPERTENSION[SNOMED: 09889060] Evelyn Yeung MD, C CPT-4: 00347 11/25/2011 [id number]) [id number] EST. P ATIENT, LEVEL IV Diagnosis: Abnormal Pap smear[ICD9: 796.9] Diagnosis: ESSENTIAL HYPERTENSION[SNOMED: 75535022] Diagnosis: Hot flashes due to surgical menopause[ICD9: 627.4] Evelyn Yeung MD, C CPT-4: 87736 08/21/2011 [id number]) 95091 EST. P ATIENT, LEVEL IV Diagnosis: ESSENTIAL HYPERTENSION[SNOMED: 13280904] Diagnosis: Hyperlipidemia[ICD9: 272.4] Diagnosis: Annual physical exam[ICD9: V70.0] Evelyn Yeung MD, [facility] CPT-4: 63900 04/14/2011 97316 EST. PATIENT, LEVEL III Diagnosis: ESSENTIAL HYPERTENSION[SNOMED: 98465183] Diagnosis: Dyspareunia, female[ICD9: 625.0] Evelyn Yeung MD, [facility] CPT-4: 11877 10/14/2010 Plan of Care Planned Activity Notes C odes Status Date Appointment: [facility] [facility] [place] ([facility]) Complex 03/11/2017 Patient Education: Patient Medication Summary Completed 03/11/2017 [phone] [facility] [place] (15 min) Moderate 02/19/2017 Patient Education: Patient Medication Summary Completed 02/19/2017 Appointment: Injection 12/09/2016 Patient Education: Patient Medication Summary Completed 12/09/2016 [facility]ment: [phone] [facility] [place] ([facility] min) Moderate 10/16/2016 Patient Education: Patient Medication Summary Completed 10/16/2016 Patient Education: Obesity Completed 10/16/2016 [facility]ment: [facility] [phone] [facility] [place] ([facility] min) Moderate 06/19/2016 Patient Education: Patient Medication Summary Completed 06/19/2016 Patient Education: Obesity Completed 06/19/2016 Appointment: Kat Mitchell WPtel: [phone] [phone] [place] (15 min) Moderate 03/13/2016 App[facility]ment: [phone] [facility] [place] (15 min) Moderate 03/13/2016 Patient Education: Patient Medication Summary Completed 03/13/2016 Patient Education: Obesity Completed 03/13/2016 [facility]ment: [facility] [facility] [place] (15 min) Moderate 02/22/2016 Patient Education: Patient Medication Summary Completed 02/22/2016 Patient Education: Obesity Completed 02/22/2016 Appointment: Kat Mitchell WPtel: [phone] [phone] [place] (30 min) Complex 02/06/2016 App[facility]ment: [facility] [phone] [facility] [place] (15 min) Moderate 12/18/2015 Patient Education: Patient Medication Summary Completed 12/18/2015 Patient Education: Obesity Completed 12/18/2015 App[facility]ment: [facility] [phone] [facility] [place] (15 min) Moderate 11/13/2015 Patient Education: Patient Medication Summary Completed 11/13/2015 Patient Education: Obesity Completed 11/13/2015 Care Plan: Urine Culture Pending 11/13/2015 App[facility]ment: [facility] [phone] [facility] [place] (30 min) Complex 10/10/2015 Patient Education: Patient Medication Summary Completed 10/10/2015 Patient Education: Obesity Completed 10/10/2015 Appointment: Nurse Visit 07/23/2015 Patient Education: Patient Medication Summary Completed 07/23/2015 Patient Education: Hypertension Completed 07/23/2015 Appointment: Evelyn Yeung WPtel: [address] [place], [place] [phone] (15 min) Moderate 07/10/2015 Patient Education: Patient Medication Summary Completed 07/10/2015 Patient Education: Obesity Completed 07/10/2015 Appointment: Evelyn Yeung WPtel: [address] [place], [place] [phone] (15 min) Moderate 06/05/2015 Patient Education: Patient Medication Summary Completed 06/05/2015 Patient Education: Obesity Completed 06/05/2015 Patient Education: Patient Medication Summary Completed 05/01/2015 Patient Education: Obesity Completed 05/01/2015 Patient Education: Hypertension Completed 05/01/2015 Appointment: (30 min) Complex 04/09/2015 Patient Education: Patient Medication Summary Completed 04/09/2015 Patient Education: Hypertension Completed 04/09/2015 Appointment: Evelyn Yeung WPtel: [address] [place] [phone] (15 min) Moderate 03/29/2015 Patient Education: Patient Medication Summary Completed 03/26/2015 Patient Education: Hypertension Completed 03/26/2015 Appointment: (15 min) Moderate 11/17/2014 Patient Education: Patient Medication Summary Completed 11/17/2014 Patient Education: Patient Medication Summary Completed 10/31/2014 Appointment: Evelyn Yeung WPtel: [address] [place], [place] [phone] Follow up 09/28/2014 Patient Education: Patient Medication Summary Completed 09/28/2014 Patient Education: Hypertension Completed 09/28/2014 Care Plan: COMPLETE CBC AUTOMATED LOINC : 42204-3 Ordered 09/28/2014 Patient Education: Patient Medication Summary Completed 08/31/2014 Appointment: Evelyn Yeung WPtel: [address] [place], [place] [phone] Follow up 05/29/2014 Patient Education: Patient Medication Summary Completed 05/29/2014 Patient Education: Hypertension Completed 05/29/2014 Appointment: Evelyn Yeung WPtel: [address] [place], [place] [phone] Follow up 11/29/2013 Patient Education: Patient Medication Summary Completed 11/29/2013 Patient Education: Hypertension Completed 11/29/2013 Care Plan: COMPLETE CBC AUTOMATED LOINC : 14721-6 Ordered 11/29/2013 Appointment: [phone] [facility] [place] Sick 10/04/2013 Patient Education: Patient Medication Summary Completed 10/04/2013 Appointment: Evelyn Yeung [facility] [place] Follow up 05/31/2013 Patient Education: Patient Medication Summary Completed 05/31/2013 Patient Education: Hypertension Completed 05/31/2013 Appointment: Evelyn Yeung WPtel: [facility] [place] Pap Only 11/30/2012 Patient Education: Patient Medication Summary Completed 11/30/2012 Patient Education: Hypertension Completed 11/30/2012 Appointment: Evelyn Yeung WPtel: [facility] [place] Pap Only 05/31/2012 Patient Education: Patient Medication Summary Completed 05/31/2012 Patient Education: Hypertension Completed 05/31/2012 Appointment: Evelyn Yeung WPtel: [address] [place], [place] [phone] [place] Pap Only 11/25/2011 Patient Education: Patient Medication Summary Completed 11/25/2011 Patient Education: High Blood Pressure: Essential Hypertension Completed 11/25/2011 Appointment: Evelyn Yeung WPtel: [facility] [place] Pap Only 09/01/2011 Appointment: Evelyn Yeung WPtel[facility] [place] Pap Only 08/26/2011 Appointment: Evelyn Yeung WPtel: [address] [place] [phone] [place] Pap Only 08/21/2011 Patient Education: Patient Medication Summary Completed 08/21/2011 Patient Education: High Blood Pressure: Essential Hypertension Completed 08/21/2011 Appointment: Evelyn Yeung WPtel: [address] [place], [place] [id number] [place] Other 04/16/2011 Appointment: [facility] [phone] [facility] [place] Pap Only 04/14/2011 Patient Education: Patient Medication Summary Completed 04/14/2011 Patient Education: High Blood Pressure: Essential Hypertension Completed 04/14/2011 Appointment: [facility] [phone] [facility] [place] Injection 12/19/2010 Patient Education: Patient Medication Summary Completed 12/19/2010 [facility]ment: [facility] [phone] [facility] [place] Other 10/14/2010 Patient Education: Patient Medication Summary Completed 10/14/2010 Instructions No Instructions
--- NOTE | 2019-07-08 11:17 | Anesthesia-General Post-Op ---
MAC Patient Condition Mental Status/LOC: Same as Preop Cardiovascular: Satisfactory Nausea/Vomiting: Absent Respiratory: Satisfactory Pain: Controlled Complications: Absent Post Op Complications Complications None Follow Up Care/Instructions Patient Instructions None needed. Anesthesiology Discharge Order Discharge Order Patient is doing well, no complaints, stable vital signs, no apparent adverse anesthesia problems. No complications reported per nursing. SULLY MORA CRNA July 08, 2019 11:17
== END 2019-07-08 08:00 | disposition home or self-care (01) ==
LOC: SDC 06:07
PROVIDERS: ATTEND Specialist
DX: H25.12 Age-related nuclear cataract, left eye (principal); I10 Essential (primary) hypertension; I25.10 Atherosclerotic heart disease of native coronary artery without angina pectoris; E78.5 Hyperlipidemia, unspecified; Z79.82 Long term (current) use of aspirin; Z79.899 Other long term (current) drug therapy; Z88.8 Allergy status to other drugs, medicaments and biological substances; Z90.710 Acquired absence of both cervix and uterus; Z90.49 Acquired absence of other specified parts of digestive tract

== ENCOUNTER → 2019-10-06 | Outpatient (CLI) | payer MEDICARE ==
--- NOTE | 2019-10-06 13:39 | Diagnostic Imaging Report ---
INDICATION: Skin lesion right breast. CORRELATION is made with prior mammograms 11/05/2018 and 10/27/2017. Unilateral right 2-D and 3-D diagnostic mammography was performed with CAD. A marker was placed at the area of the skin lesion in the outer right breast. Scattered fibroglandular densities in the right breast are noted. No mass or malignant appearing microcalcifications are seen. Mild nodularity of the retroareolar right breast is stable. There are benign calcifications. There are surgical clips in the right axilla. IMPRESSION: BI-RADS Category 2 No mammographic features suspicious for malignancy are identified. ACR BI-RADS Category 2: Benign findings. Result letter will be mailed to the patient. Note: At least 10% of breast cancer is not imaged by mammography. Dictated by: Dictated on workstation # [id number]
== END ==
LOC: RAD 12:46
PROVIDERS: ATTEND Nurse Practitioner Family
DX: N64.89 Other specified disorders of breast (principal); Z20.828 Contact with and (suspected) exposure to other viral communicable diseases
CPT/HCPCS: 77065; G0279

== ENCOUNTER → 2019-11-09 | Outpatient (CLI) | payer MEDICARE ==
[~2019-11-09] MED LIST changes: -ACET-2715 PO; +ACET-3075 PO
--- NOTE | 2019-11-09 14:12 | Diagnostic Imaging Report ---
INDICATION: Routine screening. COMPARISON: 11/05/2018 and 10/27/2017. TECHNIQUE: 2D and 3D bilateral screening mammography was performed with CAD. FINDINGS: Both breasts are heterogeneously dense, limiting the sensitivity of mammography. No dominant mass or malignant appearing microcalcifications are seen. The right axilla contains multiple surgical clips. The left axilla is unremarkable. IMPRESSION: No mammographic features suspicious for malignancy are identified. ACR BI-RADS Category 2: Benign findings. Result letter will be mailed to the patient. Note: At least 10% of breast cancer is not imaged by mammography. Dictated by: Dictated on workstation # [id number]
== END ==
LOC: RAD 09:45
PROVIDERS: ATTEND Family Medicine
DX: Z12.31 Encounter for screening mammogram for malignant neoplasm of breast (principal)
CPT/HCPCS: 77063; 77067

== ENCOUNTER → 2020-11-09 | Outpatient (CLI) | payer MEDICARE ==
[~2020-11-09] MED LIST changes: -LISI-552 PO; +LISI20TA26 PO; +LISI40TA9 PO; -SULF1TAB35 PO; +SULF1TAB38 PO
--- NOTE | 2020-11-09 13:53 | Diagnostic Imaging Report ---
Digital mammogram bilateral screening This study was compared to the prior exams of 11/09/2019, 10/06/2019, 11/05/2018 and 10/27/2017. At this time, there are no current complaints. The fibroglandular tissue in both breasts is heterogeneously dense. On the MLO view of the left breast, just above the nipple line and approximately 8.5 cm from the nipple, there is a 6 mm oval asymmetry. There appears to be a corresponding abnormality in the midportion of the breast on the craniocaudad view. I would recommend that a compression view of this area be obtained in the CC and MLO projections for further study. A true lateral view should also be performed as well as an ultrasound. The right breast is unchanged. IMPRESSION: Additional mammographic views and ultrasound of the left breast would be recommended for further study. ACR BI-RADS Category 0: Incomplete. (Needs additional imaging evaluation). Result letter will be mailed to the patient. Note: At least 10% of breast cancer is not imaged by mammography. Dictated by: Dictated on workstation # [id number]
== END ==
LOC: RAD 09:30
PROVIDERS: ATTEND Family Medicine
DX: Z12.31 Encounter for screening mammogram for malignant neoplasm of breast (principal)
CPT/HCPCS: 77063; 77067

== ENCOUNTER → 2020-11-19 | Outpatient (CLI) | payer MEDICARE ==
--- NOTE | 2020-11-19 14:10 | Diagnostic Imaging Report ---
INDICATION: Left breast density. Patient presents for additional views. Correlation is made with screening study from 11/09/2020. Unilateral left 2-D and 3-D diagnostic mammography was performed. This includes spot compression CC and MLO views as well as conventional 90 degrees lateral views. The area of density in the upper left breast at mid depth appears to have resolved with additional views. This most likely represented superimposed tissue. No mass or malignant-appearing microcalcifications are seen. IMPRESSION: BI-RADS Category 1 Additional views fail to demonstrate a discrete mass. The patient may return to routine annual screening mammography. ACR BI-RADS Category 1: Negative. Result letter will be mailed to the patient. Note: At least 10% of breast cancer is not imaged by mammography. Dictated by: Dictated on workstation # [id number]
== END ==
LOC: RAD 12:55
PROVIDERS: ATTEND Family Medicine
DX: R92.2 Inconclusive mammogram (principal)
CPT/HCPCS: 77065; G0279

== ENCOUNTER → 2021-02-27 | Outpatient (CLI) | payer MEDICARE | LOC: CARD 10:00 | PROVIDERS: ATTEND Internal Medicine Cardiovascular Disease | DX: I11.9 Hypertensive heart disease without heart failure (principal) | CPT/HCPCS: 93306 ==

== ENCOUNTER → 2021-04-08 | Outpatient (CLI) | payer MEDICARE ==
[~2021-04-08] MED LIST changes: +CATHETER FLUSH 10 ML SYR IV PRN
[2021-04-08 09:36] VITALS: BP 115/72
--- NOTE | 2021-04-08 11:43 | Cardiology Stress Test Report ---
Stress Test Report Date of Procedure/Referring: Date of Procedure: Apr 08, 2021 PCP Anai Mccarthy MD Admitting Physician Evelyn Yeung MD Indications: HTN Baseline Heart Rate: 60 Baseline Blood Pressure: Blood Pressure Systolic: 115 Blood Pressure Diastolic: 72 Vital Signs Date Time Temp Pulse Resp B/P (MAP) Pulse Ox O2 Delivery O2 Flow Rate FiO2 04/08/21 09:36 60 115/72 (86) Baseline Vital Signs Vital Signs Date Time Temp Pulse Resp B/P (MAP) Pulse Ox O2 Delivery O2 Flow Rate FiO2 04/08/21 09:36 60 115/72 (86) Baseline EKG: Baseline EKG: NSR, APCs Summary: After explaining the procedure and details to the patient, she signed the consent and was brought to the stress nuclear laboratory. Patient exercised on standard Trever protocol, EKG, heart rate and blood pressure were monitored continuously, resting and stress doses of radio tracer were injected, imaging was acquired and reviewed in the short axis, horizontal long axis and vertical long axis views Patient was able to exercise for a total of 4 minutes on Trever protocol, METs 5.8 Maximum heart rate 126 Maximum blood pressure 174/82 Stress EKG, Minimal nondiagnostic changes Recovery EKG, Return to baseline TID: 1.06 SSS: 1 SDS: 1 EF: 78 Conclusion: 1. Good exercise tolerance for a total of 4 minutes on standard Trever protocol, 5.8 METS achieving 86% of maximal expected heart rate 2. Appropriate heart rate response to exercise with mild hypertensive response to exercise with peak blood pressure 174/82 return to baseline during recovery 3. Minimal nondiagnostic EKG changes with exercise return to baseline during recovery, patient had frequent atrial premature contractions persisted throughout test 4. No significant ischemia or infarction noted on SPECT images 5. Normal left ventricular size, EF 78% ANAI MCCARTHY MD Apr 08, 2021 11:43
== END ==
LOC: CARD 08:15
PROVIDERS: ATTEND Internal Medicine Cardiovascular Disease
DX: I10 Essential (primary) hypertension (principal)
CPT/HCPCS: 78452; 93017; A9502

== ENCOUNTER → 2021-05-02 | Outpatient (CLI) | payer MEDICARE ==
[~2021-05-02] MED LIST changes: -CATHETER FLUSH 10 ML SYR IV PRN
--- NOTE | 2021-05-02 17:04 | Diagnostic Imaging Report ---
EXAMINATION: Lumbar spine radiographs, 3 views. COMPARISON: None. HISTORY: 75-year-old female, low back pain. FINDINGS: There is grade 1 retrolisthesis of L2 on L3 measuring 3 mm. There is grade 1 retrolisthesis of L3 on L4 measuring 3 mm. There is severe disc height loss at both L2-L3 and L3-L4. There are associated endplate degenerative related changes. There is no identified compression deformity or other fracture. There is bilateral facet arthropathy at L3-L4 and L5-S1. The sacroiliac joints are unremarkable in appearance. There are right upper quadrant surgical clips. IMPRESSION: 1. Severe disc degenerative changes at L2-L3 and L3-L4. 2. Facet degenerative changes, most notable at L3-L4 and L5-S1. 3. No identified compression deformity or fracture. 4. Grade 1 retrolisthesis of L2 on L3 and also of L3 on L4. Dictated by: Dictated on workstation # [id number]
--- NOTE | 2021-05-02 17:08 | Diagnostic Imaging Report ---
EXAMINATION: Thoracic spine radiograph. EXAM DATE: 05/02/2021. COMPARISON: 03/30/2015. HISTORY: Back pain. TECHNIQUE: 3 views of the thoracic spine including lateral and swimmer's view. FINDINGS: There is no acute fracture, dislocation or destructive osseous process. Vertebral body heights are maintained. There is mild multilevel thoracic spondylosis. The soft tissues are normal. IMPRESSION: Degenerative changes of thoracic spine without acute osseous abnormality. Dictated by: Dictated on workstation # [id number]
== END ==
LOC: RAD 16:09
PROVIDERS: ATTEND Nurse Practitioner Family
DX: M51.36 Other intervertebral disc degeneration, lumbar region (principal); M47.815 Spondylosis without myelopathy or radiculopathy, thoracolumbar region; M47.817 Spondylosis without myelopathy or radiculopathy, lumbosacral region; M43.16 Spondylolisthesis, lumbar region
CPT/HCPCS: 72072; 72100

== ENCOUNTER → 2021-05-14 | Outpatient (CLI) | payer MEDICARE ==
--- NOTE | 2021-05-14 11:10 | Diagnostic Imaging Report ---
CLINICAL INDICATION: Patient has intermittent back pain x1 month that radiates down left leg to left ankle. No trauma. EXAM: MRI of the lumbar spine performed without IV contrast. Sagittal T2, sagittal T1, sagittal T2 fat-sat, and axial T2. COMPARISON: X-ray of the lumbar spine dated 05/02/2021. FINDINGS: There is no acute lumbar spine fracture. There is no marrow edema. There are Modic type II degenerative signal changes involving the L2-L3 and L3-L4 endplates. The visualized portions of the distal thoracic spinal cord, conus medullaris, and cauda equina nerve roots are unremarkable. The conus medullaris tip is seen at the lower L1 vertebral body level. There is no significant paraspinal soft tissue abnormality. L1-L2: There is a mild diffuse disc bulge with superimposed right paracentral disc extrusion/herniation with roughly 7 mm of cephalad disc migration. There is zdqv-xd-qwflwaer central canal stenosis. There is no significant neural foramen narrowing. There is ubqh-aa-lyxbzdxh bilateral facet arthropathy. L2-L3: There is grade 1 retrolisthesis of L2 on L3. There is a diffuse disc bulge and lndooplh-hz-xrusuu loss of disc space height. There is mild bilateral neural foramen narrowing. There is jvsf-fi-lmkbojfp bilateral facet arthropathy. There is no significant central canal stenosis. L3-L4: There is grade 1 retrolisthesis of L3 on L4. There is a diffuse disc bulge with severe loss of disc space height and endplate irregularity. There is moderate bilateral facet arthropathy and ligamentum flavum buckling. There is grpvabxn-sg-jdefsr central canal stenosis and severe bilateral neural foramen narrowing. L4-L5: There is severe bilateral facet arthropathy and ligamentum flavum buckling. There is a diffuse disc bulge. There is severe central canal stenosis and severe bilateral neural foramen narrowing. L5-S1: There is a mild diffuse disc bulge with rgvq-qc-ceactavh left neural foramen narrowing and moderate right neural foramen narrowing. There is severe bilateral facet arthropathy/hypertrophy. There is degenerative facet effusion on the right. There is no significant central canal stenosis. IMPRESSION: There is severe multilevel lumbar spine degenerative disc disease including grade 1 retrolisthesis of L2 on L3 and L3 on L4. Dictated by: Dictated on workstation # [id number]
== END ==
LOC: RAD 09:30
PROVIDERS: ATTEND Nurse Practitioner Family
DX: M51.16 Intervertebral disc disorders with radiculopathy, lumbar region (principal); M43.16 Spondylolisthesis, lumbar region
CPT/HCPCS: 72148

== ENCOUNTER → 2021-11-27 | Outpatient (CLI) | payer MEDICARE ==
--- NOTE | 2021-11-27 16:26 | Diagnostic Imaging Report ---
INDICATION: Routine screening. COMPARISON: 11/09/2020 and 11/09/2019. TECHNIQUE: 2D and 3D bilateral screening mammography was performed with CAD. FINDINGS: Scattered fibroglandular densities are identified bilaterally. The parenchymal pattern is stable. No dominant mass or malignant-appearing microcalcifications are seen. The axillae are unremarkable apart from clips in the right axilla. IMPRESSION: No mammographic features suspicious for malignancy are identified. ACR BI-RADS Category 2: Benign findings. Result letter will be mailed to the patient. Note: At least 10% of breast cancer is not imaged by mammography. Dictated by: Dictated on workstation # [id number]
== END ==
LOC: RAD 11:01
PROVIDERS: ATTEND Family Medicine
DX: Z12.31 Encounter for screening mammogram for malignant neoplasm of breast (principal)
CPT/HCPCS: 77063; 77067

== ENCOUNTER → 2022-03-18 | Outpatient (CLI) | payer MEDICARE ==
[~2022-03-18] MED LIST changes: -POTA10CA43 PO; +POTA10CA44 PO
--- NOTE | 2022-03-18 11:43 | Diagnostic Imaging Report ---
INDICATION: 76-year-old asymptomatic postmenopausal female COMPARISON: 12/10/2012 FINDINGS: LT Hip Neck: [BMD (g/cm2): 0.866] [T-Score: -1.2] [Z-Score: 0.3] LT Hip Total: [BMD (g/cm2):0.930] [T-Score:-0.6] [Z-Score: 0.7] [BMD Previous: 0.959] [BMD % Change: -3.0] RT Hip Neck: [BMD (g/cm2):0.896] [T-Score:-1.0] [Z-Score:0.5] RT Hip Total: [BMD (g/cm2):0.923] [T-score:-0.7] [Z-Score:0.7] [BMD Previous:0.937] [BMD % Change:-1.5] *Indicates significant change from prior examination based on 95% confidence level. World Health Organization criteria for BMD interpretation classify patients as Normal (T-score at or above -1.0), Osteopenic (T-score between -1.0 and -2.5) or Osteoporotic (T-score at or below -2.5). LIMITATIONS AND MODIFICATION: Lumbar spine is excluded from assessment due to the presence of fusion hardware. FRACTURE RISK (FRAX SCORE): The ten year probability of (%): Major Osteoporotic Fracture: [10.6] Hip Fracture: [1.9] IMPRESSION: 1. Osteopenia (Low bone mass). 2. No significant change in bone mineral density since prior examination. 3. See below National Osteoporosis Foundation guidelines on when to potentially initiate pharmacologic therapy. Based on the National Osteoporosis Foundation Guidelines, pharmacologic treatment should be initiated in any of the following, unless clinical conditions suggest otherwise: * Any patient with prior fragility fracture of the hip or vertebrae. A spine fracture indicates 5X risk for subsequent spine fracture and 2X risk for subsequent hip fracture. * Osteoporosis (T-score <-2.5). * Postmenopausal women and men age 50 and older with low bone mass/osteopenia (T-score between -1.0 and -2.5) by DXA and 10-year major osteoporotic fracture greater than 20% or a 10-year probability of hip fracture greater than 3%. These fracture risks are supplied above in the FRAX score, if applicable. * Clinician judgement and/or patient preferences may indicate treatment for people with 10-year fracture probabilities above or below these levels. Dictated by: Dictated on workstation # [id number]
== END ==
LOC: RAD 08:30
PROVIDERS: ATTEND Nurse Practitioner Family
DX: M85.80 Other specified disorders of bone density and structure, unspecified site (principal); N95.9 Unspecified menopausal and perimenopausal disorder
CPT/HCPCS: 77080

== ENCOUNTER 2022-04-16 12:46 | Emergency (ER) | payer MEDICARE ==
[~2022-04-16] VITALS: Ht 160 cm; Wt 86.2 kg
--- NOTE | 2022-04-16 14:26 | ED Upper Extremity ---
General Chief Complaint: Upper Extremity Stated Complaint: LT SHOULDER AND NECK PAIN Nursing Triage Note: PT AMB TO ED BY POV WITH C/O INTERMITTENT L NECK/SHOULDER PAIN OVER THE LAST FEW DAYS. PT DENIES INJURY. Source: patient, family Exam Limitations: no limitations (RAMONA JAQUEZ) History of Present Illness Date Seen by Provider: Apr 16, 2022 Time Seen by Provider: 13:12 Initial Comments Mrs. Cheek is a 76yo F with PMH significant for HTN and lumbar disk surgery 03/10 who presents with 1wk Hx of worsening left arm and back pain which is dull/achy/burning in character preventing her from sleeping and prompting her visit to the ED today. She states that heating pads, OTC analgesics and topical patch provide minimal relief. She denies any inciting event such as lifting or falling. She confirms some form of cardiac history but is unsure what it was, follows Dr. Mccarthy and passed stress test in March of 2021. She does endorse some diarrhea, but no N/V/F/C. Onset: last week Severity: moderate (5/10 Disrupting sleep) Pain/Injury Location: left shoulder Method of Injury: unknown Modifying Factors: Improves With Pain Medication (RAMONA JAQUEZ) Allergies and Home Medications Allergies Coded Allergies: Anesthetics - Amide Type (Verified Adverse Reaction, Unknown, vomiting, 12/04/15) Patient Home Medication List Home Medication List Reviewed: Yes (MAGDA FLORES APRN) Aspirin (Aspirin) 325 Mg Tablet, 325 MG PO DAILY, (Reported) Entered as Reported by: MARGARITO BRAGG on 03/30/15 1411 Calcium Carbonate/Vitamin D3 (Calcium 600 + Vit D Caplet) 1 Each Tablet, 1 TAB PO DAILY, (Reported) Entered as Reported by: CHRIS FUENTES on 11/20/15 1146 Cetirizine HCl (Cetirizine HCl) 10 Mg Tablet, 10 MG PO DAILY, (Reported) Entered as Reported by: CHRIS FUENTES on 04/20/19 1032 Chlorthalidone (Chlorthalidone) 25 Mg Tablet, 25 MG PO DAILY, (Reported) Entered as Reported by: CHRIS FUENTES on 11/20/15 1146 Cyclobenzaprine HCl (Cyclobenzaprine HCl) 10 Mg Tablet, 10 MG PO TID Prescribed by: Magda Flores on 04/16/22 170 Lisinopril (Lisinopril) 40 Mg Tablet, 20 MG PO BID, (Reported) Entered as Reported by: STACEY DEAN on 12/04/15 1326 Meloxicam (Meloxicam) 15 Mg Tablet, 15 MG PO DAILY Prescribed by: Magda Flores on 04/16/22 170 Methylprednisolone (Methylprednisolone Dose Pack) 4 Mg Tablet, 4 MG PO UD Prescribed by: Magda Flores on 04/16/22 170 Metoprolol Succinate (Metoprolol Succinate) 50 Mg Tab.er.24h, 50 MG PO BID, (Reported) Entered as Reported by: MARGARITO BRAGG on 03/30/15 1402 Multivitamin (Multivitamin) 1 Each Tablet, 1 EACH PO DAILY, (Reported) Entered as Reported by: LEAH CORONADO on 07/01/19 1208 Multivitamins (Multiple Vitamin) 1 Tab Tablet, 1 TAB PO DAILY, (Reported) Entered as Reported by: BRENNAN TALAVERA on 07/12/10 1403 [place]-3/Dha/Epa/Fish Oil (Fish Oil 1,400 mg Softgel) 1 Each Capsule.dr, 2,800 MG PO HS, (Reported) Entered as Reported by: CHRIS FUENTES on 11/20/15 1146 Potassium Chloride (Potassium Chloride) 10 Meq Capsule.er, 10 MEQ PO MoWeFr, (Reported) Entered as Reported by: STACEY DEAN on 12/04/15 1326 Simvastatin (Simvastatin) 20 Mg Tablet, 20 MG PO HS, (Reported) Entered as Reported by: MILTON SANDOVAL on 12/18/14 0800 Review of Systems Constitutional: No chills, No diaphoresis, No dizziness, No fever, No malaise, No weakness EENTM: No ear pain, No double vision, No throat pain Respiratory: No cough, No dyspnea on exertion, No short of breath Cardiovascular: No chest pain, No Hx of Intervention Gastrointestinal: No abdominal pain; diarrhea; No hematemesis, No heartburn, No nausea, No vomiting Genitourinary: No discharge, No dysuria, No hematuria, No incontinence Musculoskeletal: back pain, muscle pain Skin: No change in color, No rash Psychiatric/Neurological: Denies Anxiety, Denies Depressed, Denies Headache, Denies Numbness, Denies Paresthesia (RAMONA JAQUEZ) Past [place]-Jvondm-Cboonc Hx Patient Social History Tobacco Use?: No Substance use?: No Alcohol Use?: No Pt feels they are or have been: No (RAMONA JAQUEZ) Immunizations Up To Date Tetanus Booster (TDap): More than 5yrs Influenza Vaccine Up-to-Date: Yes; Up-to-Date First/Initial COVID19 Vaccinat: X3 Second COVID19 Vaccination [place]: X3 Third COVID19 Vaccination Date: X3 (RAMONA JAQUEZ) Seasonal Allergies Seasonal Allergies: No (RAMONA JAQUEZ) Past Medical History Surgery/Hospitalization HX: HTN BILAT TKR, CHITO, HYST, THYROIDECTOMY Surgeries: Yes Gallbladder, Joint Replacement, Orthopedic, Thyroidectomy Respiratory: Yes Sleep Apnea Currently Using CPAP: Yes Cardiac: Yes High Cholesterol, Hypertension, Irregular Heartbeat Neurological: Yes Headaches /Migraines Reproductive Disorders: No Female Reproductive Disorders: Denies CLINICAL DOCUMENTATION SPEC History: Menopausal Sexually Transmitted Disease: No HIV/AIDS: No Genitourinary: No Gastrointestinal: Yes Gastroesophageal Reflux Musculoskeletal: Yes (BILATERAL KNEE REPLACEMENTS) Arthritis Endocrine: Yes (THYROIDECTOMY) HEENT: Yes Cataract Cancer: No Psychosocial: No Integumentary: No Blood Disorders: No (RAMONA JAQUEZ) Family Medical History Abdominal aortic aneurysm 19 FATHER Alcoholism 19 MOTHER Arthritis 19 FATHER Cardiovascular disease 19 FATHER Dementia 19 FATHER Hypertension 19 FATHER 19 MOTHER G8 BROTHER G8 SISTER Thyroid disease G8 SISTER Physical Exam Vital Signs Vital Signs - First Documented 04/16/22 12:52 Temp 36.8 Pulse 81 Resp 16 B/P (MAP) 157/96 (116) Pulse Ox 99 O2 Delivery Room Air (MAGDA FLORES APRN) Vital Signs Capillary Refill : Less Than 3 Seconds (RAMONA JAQUEZ) Height, Weight, BMI Height: 5'3.00" Weight: 190lbs. 0.0oz. 86.009987rh; 33.00 BMI Method:Stated General Appearance: WD/WN, no apparent distress HEENT: PERRL/EOMI Neck: full range of motion, supple Cardiovascular: regular rate, rhythm, no edema Respiratory: chest non-tender, lungs clear, normal breath sounds, no respiratory distress, no accessory muscle use Gastrointestinal: non tender, soft Back: no CVA tenderness, muscle spasm, vertebral tenderness (T1-T2 Left) Shoulder: no evidence of injury, normal ROM; No deformity, No ecchymosis; pain; No soft tissue tenderness, No swelling Elbow/Forearm: non-tender, no evidence of injury, normal ROM Wrist: Yes non-tender (RAMONA JAQUEZ) Progress/Results/Core Measures Results/Orders Lab Results Laboratory Tests Test 04/16/22 15:40 04/16/22 16:05 04/16/22 16:11 Range/Units Prothrombin Time 12.4 12.2-14.7 SEC INR Comment 0.9 0.8-1.4 Activated Partial Thromboplast Time 27 24-35 SEC Sodium Level 140 135-145 MMOL/L Potassium Level 3.6 3.6-5.0 MMOL/L Chloride Level 103 98-107 MMOL/L Carbon Dioxide Level 28 21-32 MMOL/L Anion Gap 9 5-14 MMOL/L Blood Urea Nitrogen 19 H 7-18 MG/DL Creatinine 1.16 0.60-1.30 MG/DL Estimat Glomerular Filtration Rate 49 BUN/Creatinine Ratio 16 Glucose Level 95 70-105 MG/DL Calcium Level 9.5 8.5-10.1 MG/DL Corrected Calcium 9.5 8.5-10.1 MG/DL Magnesium Level 1.7 1.6-2.4 MG/DL Total Bilirubin 0.4 0.1-1.0 MG/DL Aspartate Amino Transf (AST/SGOT) 17 5-34 U/L Alanine Aminotransferase (ALT/SGPT) 22 0-55 U/L Alkaline Phosphatase 49 40-136 U/L Troponin I < 0.028 <0.028 NG/ML Total Protein 6.8 6.4-8.2 GM/DL Albumin 4.0 3.2-4.5 GM/DL White Blood Count 6.5 4.3-11.0 10^3/uL Red Blood Count 4.02 3.80-5.11 10^6/uL Hemoglobin 12.1 11.5-16.0 g/dL Hematocrit 36 35-52 % Mean Corpuscular Volume 89 80-99 fL Mean Corpuscular Hemoglobin 30 25-34 pg Mean Corpuscular Hemoglobin Concent 34 32-36 g/dL Red Cell Distribution Width 12.8 10.0-14.5 % Platelet Count 221 130-400 10^3/uL Mean Platelet Volume 11.1 9.0-12.2 fL Immature Granulocyte % (Auto) 0 % Neutrophils (%) (Auto) 66 42-75 % Lymphocytes (%) (Auto) 25 12-44 % Monocytes (%) (Auto) 5 0-12 % Eosinophils (%) (Auto) 3 0-10 % Basophils (%) (Auto) 1 0-10 % Neutrophils # (Auto) 4.3 1.8-7.8 10^3/uL Lymphocytes # (Auto) 1.6 1.0-4.0 10^3/uL Monocytes # (Auto) 0.3 0.0-1.0 10^3/uL Eosinophils # (Auto) 0.2 0.0-0.3 10^3/uL Basophils # (Auto) 0.0 0.0-0.1 10^3/uL Immature Granulocyte # (Auto) 0.0 0.0-0.1 10^3/uL (MAGDA FLORES APRN) My Orders Orders - MAGDA FLORES APRN Ekg Tracing (04/16/22 14:32) Ed Iv/Invasive Line Start (04/16/22 14:44) Shoulder, Left, 3 Views (04/16/22 14:44) Cbc With Automated Diff (04/16/22 14:44) Magnesium (04/16/22 14:44) Comprehensive Metabolic Panel (04/16/22 14:44) Protime With Inr (04/16/22 14:44) Partial Thromboplastin Time (04/16/22 14:44) O2 (04/16/22 14:44) Monitor-Rhythm Ecg Trace Only (04/16/22 14:44) Troponin I [place] (04/16/22 14:44) Chest 1 View, Ap/Pa Only (04/16/22 14:45) Ketorolac Injection (Toradol Injection) (04/16/22 14:45) Orphenadrine Inj (Ed Only) (Norflex Inje (04/16/22 14:45) Ct Cervical Spine Wo (04/16/22 14:45) Ct Thoracic Spine Wo (04/16/22 ) Dexamethasone Injection (Decadron Inje (04/16/22 17:00) (MAGDA FLORES APRN) Medications Given in ED Current Medications Medications Dose Ordered Sig/Abdirizak Route Start Time Stop Time Status Last Admin Dose Admin Ketorolac Tromethamine 15 mg ONCE ONCE IVP 04/16/22 14:45 04/16/22 14:48 DC 04/16/22 15:32 15 MG Orphenadrine Citrate 60 mg ONCE ONCE IV 04/16/22 14:45 04/16/22 14:48 DC 04/16/22 15:31 60 MG (MAGDA FLORES APRN) Vital Signs/I&O 04/16/22 12:52 Temp 36.8 Pulse 81 Resp 16 B/P (MAP) 157/96 (116) Pulse Ox 99 O2 Delivery Room Air (MAGDA FLORES APRN) Blood Pressure Mean: 116 Progress Progress Note #1: Time: 14:45 Progress Note Patient seen and evaluated by me. Resting comfortably in recliner, no acute distress. Based on exam and symptoms, work-up initiated including CBC, CMP, troponin. Chest x-ray, left shoulder x-ray, CT of the cervical and thoracic spine. Toradol and Norflex ordered. Progress Note #2: Time: 16:50 Progress Note Labs and imaging reviewed. CBC grossly normal, WBC 6.5, hemoglobin 12.1. CMP mostly normal, sodium 140, potassium 3.6, BUN slightly elevated 19, creatinine 1.16, GFR 49 kidney function similar to previous. Troponin negative. Magnesium 1.7. Coags normal. Chest x-ray negative for any acute findings. Shoulder x-ray shows hypertrophic degenerative changes to the glenohumeral and acromioclavicular joints, but no acute appearing abnormality. C-spine CT shows degenerative changes with multilevel chronic bony canal and fo raminal stenoses but no fracture or acute-appearing abnormality. There is slight grade 1 degenerative anterolisthesis of C4 on C5. Thoracic spine CT shows degenerative changes. Aligned anatomically with no fracture, bony destruction, or acute appearing abnormalities. Results discussed with patient. Will order dose of Decadron here now and discharged with prescription for meloxicam, Flexeril, and Medrol Dosepak. Discharge instructions and return precautions provided. Patient instructed to follow-up with the spine surgeon who performed her discectomy. Patient agreeable to discharge at this time. (MAGDA FLORES APRN) Initial ECG Impression Date: Apr 16, 2022 Initial ECG Impression Time: 14:47 Initial ECG Rate: 64 Initial ECG Rhythm: Normal Sinus Initial ECG Intervals: Normal Initial ECG Impression: Normal Initial ECG Comparisson: Unchanged (MAGDA FLORES APRN) Diagnostic Imaging Diagonstic Imaging: Xray Plain Films/CT/US/NM/MRI: chest Comments [facility], [place] NAME: GRAYSON CHEEK [facility] REC#: [id number] PT STATUS: REG ER : 1945 PHYSICIAN: MAGDA FLORES APRN ADMIT DATE: 04/16/22/ER Signed Date of Exam:04/16/22 CHEST 1 VIEW, AP/PA ONLY INDICATION: Neck and shoulder pain. FINDINGS: Lungs are clear. There are surgical clips in the right axilla. Hilar and mediastinal contours are normal. No mass, consolidation, or edema. IMPRESSION: Unremarkable frontal chest. Dictated by: Dictated on workstation # [id number] Dict: 04/16/22 1515 Trans: 04/16/22 1518 [id number] Interpreted by: BISHOP LAWLER Electronically signed by: BISHOP LAWLER 04/16/22 1518 Diagonstic Imaging: Xray Plain Films/CT/US/NM/MRI: other Comments [facility], [place] NAME: GRAYSON CHEEK [facility] REC#: [id number] PT STATUS: REG ER : 1945 PHYSICIAN: MAGDA FLORES APRN ADMIT DATE: 04/16/22/ER Signed Date of Exam:04/16/22 SHOULDER, LEFT, 3 VIEWS INDICATION: Pain. FINDINGS: Three-view left shoulder demonstrates glenohumeral arthritic joint space narrowing with osteophytes and bony hypertrophy. No fracture or opaque loose body. No abnormal soft tissue calcifications. IMPRESSION: Hypertrophic degenerative changes to the glenohumeral and acromioclavicular joints, but no acute appearing abnormality. Dictated by: Dictated on workstation # [id number] Dict: 04/16/22 1517 Trans: 04/16/22 171 [id number] Interpreted by: BISHOP LAWLER Electronically signed by: BISHOP LAWLER 04/16/22 171 Diagonstic Imaging: CT Plain Films/CT/US/NM/MRI: c-spine Comments [facility] [place] NAME: GRAYSON CHEEK [facility] REC#: [id number] PT STATUS: REG ER : 1945 PHYSICIAN: MAGDA FLORES APRN ADMIT DATE: 04/16/22/ER Signed Date of Exam:04/16/22 CT CERVICAL SPINE WO PROCEDURE: CT cervical spine without contrast. TECHNIQUE: Multiple contiguous axial images were obtained through the cervical spine without the use of intravenous contrast. Sagittal and coronal reformations were then performed. Auto Exposure Controls were utilized during the CT exam to meet ALARA standards for radiation dose reduction. INDICATION: Intermittent neck and shoulder pain over the past few days. No known discrete injury. FINDINGS: There are degenerative changes to the discs, endplates, and facets throughout the cervical spine. This is believed to account for the slight 1 mm grade 1 degenerative anterolisthesis of C4 on C5. No facet joint dislocation. No cervical fracture. No bony destructive process. 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 The right thyroid lobe is heterogeneous. Central skull base is unremarkable. Craniocervical relationship is normal. There is no cervical fracture. The C2-C3 level shows mild left greater than right foraminal stenosis. At C3-C4, there is nehv-pp-nmobdydl biforaminal stenosis. At C4-C5, there is dsekcpun-hi-obwwpm left and wyre-ou-qcbcfsva right foraminal stenosis. At C5-C6, there is moderate canal and otcgxokj-cu-skfkmr biforaminal stenosis. At C6-C7, jfwsznrm-fs-mcnfih left and moderate right foraminal with mild canal stenosis present. IMPRESSION: Degenerative changes with multilevel chronic bony canal and foraminal stenoses but no fracture or acute-appearing abnormality. There is slight grade 1 degenerative anterolisthesis of C4 on C5. Dictated by: Dictated on workstation # [id number] Dict: 04/16/22 1506 Trans: 04/16/22 1518 AS [id number] Interpreted by: BISHOP LAWLER Diagonstic Imaging: CT Plain Films/CT/US/NM/MRI: other (Thoracic spine) Comments [facility], [place] NAME: GRAYSON CHEEK REC#: [id number] PT STATUS: REG ER : 1945 PHYSICIAN: MAGDA FLORES APRN ADMIT DATE: 04/16/22/ER Signed Date of Exam:04/16/22 CT THORACIC SPINE WO PROCEDURE: CT thoracic spine without contrast. TECHNIQUE: Multiple axial computerized tomography images were obtained from the base of the thoracic spine to the vertex without intravenous contrast. Auto Exposure Controls were utilized during the CT exam to meet ALARA standards for radiation dose reduction. INDICATION: Pain. FINDINGS: Thoracic statures are normal. The alignment is anatomic. No acute or suspicious endplate irregularity. No substantial canal or thoracic foraminal stenosis. No paravertebral mass, hemorrhage, or fluid collection. Mild multilevel degenerative changes to the discs and endplates with small anterior osteophytes at the mid to lower levels. IMPRESSION: Degenerative changes. Aligned anatomically with no fracture, bony destruction, or acute appearing abnormalities. Dictated by: Dictated on workstation # [id number] Dict: 04/16/22 1509 Trans: 04/16/22 1518 [id number] Interpreted by: BISHOP LAWLER Electronically signed by: BISHOP LAWLER 04/16/22 1518 (MAGDA FLORES APRN) Departure Impression Primary Impression: Degenerative disc disease Disposition: 01 HOME, SELF-CARE Condition: Stable Departure-Patient Inst. Decision time for Depature: 17:02 (MAGDA FLORES APRN) Referrals: MADHAVI LUNA MD (PCP/Family) Primary Care Physician Patient Instructions: Degenerative Disc Disease Add. Discharge Instructions: Take the meloxicam once a day. Take Flexeril up to 3 times a day as needed for pain, it may make you sleepy. Take the Medrol Dosepak as directed. Follow-up with the spine surgeon. You may also follow-up with your primary care provider. Return for uncontrollable pain, numbness or tingling, inability to move your arm, or any other new, concerning, or worsening symptoms. All discharge instructions reviewed with patient and/or family. Voiced understanding. Scripts Methylprednisolone (Methylprednisolone Dose Pack) 4 Mg Tablet 4 MG PO UD for 6 Days, #21 TAB 0 Refills FOLLOW DOSE PACK INSTRUCTIONS Prov: MAGDA FLORES APRN 04/16/22 Cyclobenzaprine HCl (Cyclobenzaprine HCl) 10 Mg Tablet 10 MG PO TID for 7 Days, #21 TAB 0 Refills Prov: MAGDA FLORES APRN 04/16/22 Meloxicam (Meloxicam) 15 Mg Tablet 15 MG PO DAILY for 14 Days, #14 TAB 0 Refills Prov: MAGDA FLORES APRN 04/16/22 RAMONA JAQUEZ Apr 16, 2022 14:26 MAGDA FLORES APRN Apr 16, 2022 16:53
[2022-04-16] MEDS ORDERED: ORPHENADRINE 60 MG/2 ML (NORFLEX) AMP (ED ONLY) IV ONE (14:45)
[2022-04-16] MEDS ORDERED: KETOROLAC 15 MG/ML VIAL IVP ONE (14:45)
--- NOTE | 2022-04-16 15:14 | Diagnostic Imaging Report ---
PROCEDURE: CT thoracic spine without contrast. TECHNIQUE: Multiple axial computerized tomography images were obtained from the base of the thoracic spine to the vertex without intravenous contrast. Auto Exposure Controls were utilized during the CT exam to meet ALARA standards for radiation dose reduction. INDICATION: Pain. FINDINGS: Thoracic statures are normal. The alignment is anatomic. No acute or suspicious endplate irregularity. No substantial canal or thoracic foraminal stenosis. No paravertebral mass, hemorrhage, or fluid collection. Mild multilevel degenerative changes to the discs and endplates with small anterior osteophytes at the mid to lower levels. IMPRESSION: Degenerative changes. Aligned anatomically with no fracture, bony destruction, or acute appearing abnormalities. Dictated by: Dictated on workstation # [id number]
--- NOTE | 2022-04-16 15:18 | Diagnostic Imaging Report ---
INDICATION: Neck and shoulder pain. FINDINGS: Lungs are clear. There are surgical clips in the right axilla. Hilar and mediastinal contours are normal. No mass, consolidation, or edema. IMPRESSION: Unremarkable frontal chest. Dictated by: Dictated on workstation # [id number]
--- NOTE | 2022-04-16 15:18 | Diagnostic Imaging Report ---
PROCEDURE: CT cervical spine without contrast. TECHNIQUE: Multiple contiguous axial images were obtained through the cervical spine without the use of intravenous contrast. Sagittal and coronal reformations were then performed. Auto Exposure Controls were utilized during the CT exam to meet ALARA standards for radiation dose reduction. INDICATION: Intermittent neck and shoulder pain over the past few days. No known discrete injury. FINDINGS: There are degenerative changes to the discs, endplates, and facets throughout the cervical spine. This is believed to account for the slight 1 mm grade 1 degenerative anterolisthesis of C4 on C5. No facet joint dislocation. No cervical fracture. No bony destructive process. 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 The right thyroid lobe is heterogeneous. Central skull base is unremarkable. Craniocervical relationship is normal. There is no cervical fracture. The C2-C3 level shows mild left greater than right foraminal stenosis. At C3-C4, there is ooon-vc-zvbiunoc biforaminal stenosis. At C4-C5, there is jyjzyqmm-rd-kvwnmd left and uycd-ab-yjipytxt right foraminal stenosis. At C5-C6, there is moderate canal and lthrjvqo-hz-lcdsju biforaminal stenosis. At C6-C7, sknkandj-xt-lyyune left and moderate right foraminal with mild canal stenosis present. IMPRESSION: Degenerative changes with multilevel chronic bony canal and foraminal stenoses but no fracture or acute-appearing abnormality. There is slight grade 1 degenerative anterolisthesis of C4 on C5. Dictated by: Dictated on workstation # [id number]
--- NOTE | 2022-04-16 15:19 | Diagnostic Imaging Report ---
INDICATION: Pain. FINDINGS: Three-view left shoulder demonstrates glenohumeral arthritic joint space narrowing with osteophytes and bony hypertrophy. No fracture or opaque loose body. No abnormal soft tissue calcifications. IMPRESSION: Hypertrophic degenerative changes to the glenohumeral and acromioclavicular joints, but no acute appearing abnormality. Dictated by: Dictated on workstation # [id number]
[2022-04-16 16:14] LABS: BASOPHILS % (AUTO) 1 % (0-10); EOSINOPHILS # (AUTO) 0.2 10^3/uL (0.0-0.3); EOSINOPHILS % (AUTO) 3 % (0-10); HEMATOCRIT 36 % (35-52); HEMOGLOBIN 12.1 g/dL (11.5-16.0); LYMPHOCYTES # (AUTO) 1.6 10^3/uL (1.0-4.0); LYMPHOCYTES % (AUTO) 25 % (12-44); MEAN CORPUSCULAR HEMOGLOBIN 30 pg (25-34); MEAN CORPUSCULAR HGB CONC 34 g/dL (32-36); MEAN CORPUSCULAR VOLUME 89 fL (80-99); MEAN PLATELET VOLUME 11.1 fL (9.0-12.2); MONOCYTES # (AUTO) 0.3 10^3/uL (0.0-1.0); MONOCYTES % (AUTO) 5 % (0-12); NEUTROPHILS # (AUTO) 4.3 10^3/uL (1.8-7.8); NEUTROPHILS % (AUTO) 66 % (42-75); PLATELET COUNT 221 10^3/uL (130-400); WHITE BLOOD COUNT 6.5 10^3/uL (4.3-11.0)
[2022-04-16 16:17] LABS: INR 0.9 (0.8-1.4); PROTHROMBIN TIME PATIENT 12.4 SEC (12.2-14.7)
[2022-04-16 16:18] LABS: POTASSIUM 3.6 MMOL/L (3.6-5.0)
[2022-04-16 16:20] LABS: CALCIUM 9.5 MG/DL (8.5-10.1)
[2022-04-16 16:21] LABS: TOTAL PROTEIN 6.8 GM/DL (6.4-8.2)
[2022-04-16 16:23] LABS: BILIRUBIN,TOTAL 0.4 MG/DL (0.1-1.0)
[2022-04-16 16:24] LABS: CREATININE SERUM 1.16 MG/DL (0.60-1.30)
[2022-04-16 16:27] LABS: MAGNESIUM 1.7 MG/DL (1.6-2.4)
[2022-04-16] MEDS ORDERED: METH4TAB11 PO (17:02)
[2022-04-16] MEDS ORDERED: MELO15TA39 PO (17:02)
[2022-04-16] MEDS ORDERED: CYCL10TA25 PO (17:02)
[2022-04-16 17:15] VITALS: BP 146/68
== END 2022-04-16 17:15 | disposition home or self-care (01) ==
LOC: EDUNIT# 12:46 → ER 12:50
DX: M50.321 Other cervical disc degeneration at C4-C5 level (principal); M51.34 Other intervertebral disc degeneration, thoracic region; G47.30 Sleep apnea, unspecified; Z99.89 Dependence on other enabling machines and devices
CPT/HCPCS: 36415; 71045; 72125; 72128; 73030; 80053; 83735; 84484; 85025; 85610; 85730; 93005; 93041

== ENCOUNTER 2022-07-19 22:03 | Emergency (ER) | payer MEDICARE ==
[~2022-07-19 22:03] MED LIST changes: +CYCL10TA25 PO; +MELO15TA39 PO; +METH4TAB11 PO
[2022-07-19] MEDS ORDERED: RX-ONDANSETRON 4 MG ODT (ZOFRAN) PPK #4 PO ONE (22:30)
[2022-07-19] MEDS ORDERED: ONDANSETRON 4 MG/2 ML (SDV) Z0FRAN IM ONE ×2 (22:30→22:45)
[2022-07-19] MEDS ORDERED: ONDA8TAB13 SL (22:33)
--- NOTE | 2022-07-19 22:33 | ED GI ---
General Chief Complaint: Abdominal/GI Problems Stated Complaint: VOMITING/DIARRHEA Source of Information: Patient, Family () Exam Limitations: No Limitations History of Present Illness Date Seen by Provider: Jul 19, 2022 Time Seen by Provider: 22:16 Initial Comments 77-year-old female presents emerged department today for nausea vomiting and diarrhea. She has diffuse abdominal cramping without any focal tenderness. Symptoms started last night. She has vomited 3 times. She has had multiple bouts of diarrhea today. She took Imodium once this morning which helped most of the day. About an hour prior to arrival her diarrhea worsened once again. She took Imodium 30 minutes prior to arrival. No fevers or chills. No sick contacts. No recent travel. All other systems reviewed and negative except documented per HPI. Voice recognition software was used to help create this chart Allergies and Home Medications Allergies Coded Allergies: Anesthetics - Amide Type - Select A (Verified Adverse Reaction, Unknown, vomiting, 12/04/15) Patient Home Medication List Home Medication List Reviewed: Yes Aspirin (Aspirin) 325 Mg Tablet, 325 MG PO DAILY, (Reported) Entered as Reported by: MARGARITO BRAGG on 03/30/15 1411 Calcium Carbonate/Vitamin D3 (Calcium 600 + Vit D Caplet) 1 Each Tablet, 1 TAB PO DAILY, (Reported) Entered as Reported by: CHRIS FUENTES on 11/20/15 1146 Cetirizine HCl (Cetirizine HCl) 10 Mg Tablet, 10 MG PO DAILY, (Reported) Entered as Reported by: CHRIS FUENTES on 04/20/19 1032 Chlorthalidone (Chlorthalidone) 25 Mg Tablet, 25 MG PO DAILY, (Reported) Entered as Reported by: CHRIS FUENTES on 11/20/15 1146 Cyclobenzaprine HCl (Cyclobenzaprine HCl) 10 Mg Tablet, 10 MG PO TID Prescribed by: Magda Hsu on 04/16/22 170 Lisinopril (Lisinopril) 40 Mg Tablet, 20 MG PO BID, (Reported) Entered as Reported by: STACEY DEAN on 12/04/15 1326 Meloxicam (Meloxicam) 15 Mg Tablet, 15 MG PO DAILY Prescribed by: Magda Hsu on 04/16/22 170 Methylprednisolone (Methylprednisolone Dose Pack) 4 Mg Tablet, 4 MG PO UD Prescribed by: Magda Hsu on 04/16/22 1702 Metoprolol Succinate (Metoprolol Succinate) 50 Mg Tab.er.24h, 50 MG PO BID, (Reported) Entered as Reported by: MARGARITO BRAGG on 03/30/15 1402 Multivitamin (Multivitamin) 1 Each Tablet, 1 EACH PO DAILY, (Reported) Entered as Reported by: LEAH CORONADO on 07/01/19 1208 Multivitamins (Multiple Vitamin) 1 Tab Tablet, 1 TAB PO DAILY, (Reported) Entered as Reported by: BRENNAN TALAVERA on 07/12/10 1403 [place]-3/Dha/Epa/Fish Oil (Fish Oil 1,400 mg Softgel) 1 Each Capsule.dr, 2,800 MG PO HS, (Reported) Entered as Reported by: CHRIS FUENTES on 11/20/15 1146 Potassium Chloride (Potassium Chloride) 10 Meq Capsule.er, 10 MEQ PO MoWeFr, (Reported) Entered as Reported by: STACEY DEAN on 12/04/15 1326 Simvastatin (Simvastatin) 20 Mg Tablet, 20 MG PO HS, (Reported) Entered as Reported by: MILTON SANDOVAL on 12/18/14 0800 Review of Systems Review of Systems Constitutional: see HPI Past Dnwmxfh-Hhwvnz-Irwpxu Hx Patient Social History Tobacco Use?: No Use of E-Cig and/or Vaping dev: No Substance use?: No Alcohol Use?: No Immunizations Up To Date Tetanus Booster (TDap): More than 5yrs First/Initial COVID19 Vaccinat: X3 Second COVID19 Vaccination [place]: X3 Third COVID19 Vaccination Date: X3 Seasonal Allergies Seasonal Allergies: No Past Medical History Surgery/Hospitalization HX: HTN BILAT TKR, CIHTO, HYST, THYROIDECTOMY Surgeries: Yes Gallbladder, Joint Replacement, Orthopedic, Thyroidectomy Respiratory: Yes Sleep Apnea Currently Using CPAP: Yes Cardiac: Yes High Cholesterol, Hypertension, Irregular Heartbeat Neurological: Yes Headaches /Migraines Reproductive Disorders: No Female Reproductive Disorders: Denies [employer] History: Menopausal Sexually Transmitted Disease: No HIV/AIDS: No Genitourinary: No Gastrointestinal: Yes Gastroesophageal Reflux Musculoskeletal: Yes (BILATERAL KNEE REPLACEMENTS) Arthritis Endocrine: Yes (THYROIDECTOMY) HEENT: Yes Cataract Cancer: No Psychosocial: No Integumentary: No Blood Disorders: No Family Medical History Abdominal aortic aneurysm 19 FATHER Alcoholism 19 MOTHER Arthritis 19 FATHER Cardiovascular disease 19 FATHER Dementia 19 FATHER Hypertension 19 FATHER 19 MOTHER G8 BROTHER G8 SISTER Thyroid disease G8 SISTER Physical Exam Vital Signs Capillary Refill : Height/Weight/BMI Height: 5'3.00" Weight: 190lbs. 0.0oz. [id number]; 33.00 BMI Method:Stated General Appearance: WD/WN, no apparent distress HEENT: normal ENT inspection, pharynx normal Neck: non-tender, supple, normal inspection Respiratory: chest non-tender, lungs clear, normal breath sounds, no respiratory distress, no accessory muscle use Cardiovascular: regular rate, rhythm, no murmur Gastrointestinal: normal bowel sounds, non tender, soft, no organomegaly, no pulsatile mass Back: normal inspection, no CVA tenderness, no vertebral tenderness Neurologic/Psychiatric: alert, oriented x 3 Skin: normal color, warm/dry Departure Communication (Admissions) The patient is hemodynamically stable with normal vital signs, benign exam. No palpable tenderness on exam. She likely has gastroenteritis. Given the short duration of her symptoms and her reassuring exam there is no indication for lab work-up at this time. She does not require IV fluids at this time, tolerating p.o. but concerned about the volume of diarrhea causing dehydration. There is no clinical evidence of significant dehydration that required IV fluids at this time. Given IM Zofran and discharged with p.o. Zofran. Continue Imodium. Impression Primary Impression: Nausea and vomiting Qualified Codes: R11.2 - Nausea with vomiting, unspecified Additional Impression: Diarrhea Qualified Codes: R19.7 - Diarrhea, unspecified Disposition: 01 HOME, SELF-CARE Condition: Stable Departure-Patient Inst. Referrals: MADHAVI LUNA MD (PCP/Family) Primary Care Physician Patient Instructions: Nausea and Vomiting, Adult ED, Diarrhea, Adult ED Add. Discharge Instructions: Use Zofran as needed by dissolving it under your tongue. Increase your fluids at home and rest. Use Imodium as needed. All discharge instructions reviewed with patient and/or family. Voiced understanding. Scripts Ondansetron (Ondansetron Odt) 8 Mg Tab.rapdis 8 MG SL Q6H PRN for NAUSEA/VOMITING for 5 Days, #20 TAB Prov: ESTEFANI ALVARENGA DO 07/19/22 ESTEFANI ALVARENGA DO Jul 19, 2022 22:33
[2022-07-19 23:03] VITALS: BP 138/64
== END 2022-07-19 23:03 | disposition home or self-care (01) ==
LOC: EDUNIT# 22:03 → ER 22:05
DX: R11.2 Nausea with vomiting, unspecified (principal); R19.7 Diarrhea, unspecified; G47.30 Sleep apnea, unspecified; Z99.89 Dependence on other enabling machines and devices
CPT/HCPCS: 99284

== ENCOUNTER → 2022-12-01 | Outpatient (CLI) | payer MEDICARE ==
[~2022-12-01] MED LIST changes: +ONDA8TAB13 SL; -POTA10CA44 PO; +POTA10CA84 PO
--- NOTE | 2022-12-01 14:18 | Diagnostic Imaging Report ---
INDICATION: Routine screening. COMPARISON: 11/27/2021 and 11/09/2020. FINDINGS: The parenchymal pattern is stable. No dominant mass or malignant-appearing microcalcifications are identified. There are benign calcifications bilaterally. Surgical clips in the right axilla are noted. The left axilla is unremarkable. IMPRESSION: No mammographic features suspicious for malignancy are identified. ACR BI-RADS Category 2: Benign findings. Result letter will be mailed to the patient. Note: At least 10% of breast cancer is not imaged by mammography. Dictated by: Dictated on workstation # [id number]
== END ==
LOC: RAD 09:45
PROVIDERS: ATTEND Family Medicine
DX: Z12.31 Encounter for screening mammogram for malignant neoplasm of breast (principal)
CPT/HCPCS: 77063; 77067

== ENCOUNTER → 2022-12-04 | Outpatient (CLI) | payer MEDICARE | LOC: CARD 13:37 | PROVIDERS: ATTEND Nurse Practitioner Family | DX: I21.09 ST elevation (STEMI) myocardial infarction involving other coronary artery of anterior wall (principal) | CPT/HCPCS: 93005 ==